=== PATIENT | female | born 1960 | race Caucasian/White ===

== ENCOUNTER → 2016-11-24 | Outpatient (CLI) | payer BC | END | disposition home or self-care (01) | LOC: LABWHC1 12:09 | PROVIDERS: ATTEND Internal Medicine | DX: I10 Essential (primary) hypertension (principal) | CPT/HCPCS: 36415; 93005 ==

== ENCOUNTER 2016-12-07 11:12 | Day surgery (SDC) | payer BC ==
[2016-12-01 15:13] VITALS: BMI 43.8
[~2016-12-07 11:12] MED LIST: ALBUTEROL NEB (CONC) 2.5 MG/0.5 ML INHALATION ONE; LACTATED RINGERS 1,000 ML IV ONE; LACTATED RINGERS 1,000 ML IV SCH; LIDOCAINE 2% (PF) 20 MG/ML 10ML INHALATION ONE
[2016-12-07 11:44] VITALS: RESP 16; TEMP 98.5
[2016-12-07] MEDS ORDERED: LIDOCAINE 1% 20 ML VIAL (10MG/ML) FOR IV START INTRADERMA ONE (12:07)
[2016-12-07] MEDS ORDERED: fentaNYL (PF) 50 MCG/ML 2 ML AMP ONE (12:45)
[2016-12-07] MEDS ORDERED: MIDAZOLAM 2 MG/2 ML VIAL ONE (12:45)
[2016-12-07] MEDS ORDERED: LIDOCAINE 1% INJ 10MG/ML (20 ML MDV) ONE (12:45)
[2016-12-07] MEDS ORDERED: PROPOFOL 10 MG/ML 20 ML VIAL IV ONE (12:45)
--- NOTE | 2016-12-07 13:08 | P.OP ---
Date of Procedure: 12/07/16 Preoperative Diagnosis: Persistent dyspnea, cough, tracheobronchitis Postoperative Diagnosis: Tracheobronchomalacia, tracheobronchitis Procedure(s) Performed: Bronchoscopy, bronchial alveolar lavage of the lingula Anesthesia: MAC Surgeon: Nadeen Feng Estimated Blood Loss (ml): 0 Pathology: other Condition: stable Disposition: same day Operative Findings: This procedure was done in the bronchoscopy suite. A timeout was obtained and a consent was signed. The procedure including the potential complications was inspected the patient at length. After achieving adequate sedation, a flexible bronchoscope was easily passed in the right nostril and was advanced into the upper airway. Examination of the posterior pharynx, larynx and epiglottis vallecula and vocal cords was done. The epiglottis was slightly swollen. There was no anatomic obstruction. Vocal cords were symmetric in the midline and there were fully functional and I did not witness any evidence of paradoxical vocal cord activity or motion. No lesions, no nodules, no other abnormalities in the upper airways. Lidocaine was applied to the vocal cords and following that the bronchoscope was last in to the upper trachea and examination of the tracheobronchial tree was done. There was evidence of dynamic obstruction secondary to tracheal bronchomalacia as the patient's membranous trachea was very mobile and causing complete occlusion of the tracheal wall with expiratory maneuvers and coughing. There was some retained secretions that were scant and nonpurulent. There is secretions were irrigated with saline and following that It was suctioning was done and the respiratory secretions were all suctioned out. Airway inspection was completed and the visualized airways into the trachea, bilateral mainstem bronchi, right upper lobe bronchus, bronchus intermedius, right middle lobe bronchus, right lower lobe bronchus, left upper lobe bronchus, left lower lobe bronchus, lungs various segments and subsegments. No tumors. No foreign bodies. There was some limited mucosal inflammatory changes involving the lingula. A bronchoalveolar lavage of the lingula with him. Total of 60 mL of fluid was infused and a total of 15-20 mL was suctioned back. No bedside complications or bleeding. The procedure was done without any complications.
[2016-12-07 13:28] VITALS: BP 131/84; PULSE 86
== END 2016-12-07 14:01 | disposition home or self-care (01) ==
LOC: ORWHC2ENDO 11:12
PROVIDERS: ATTEND Internal Medicine Critical Care Medicine
DX: J40 Bronchitis, not specified as acute or chronic (principal); J45.50 Severe persistent asthma, uncomplicated; J39.8 Other specified diseases of upper respiratory tract; R49.9 Unspecified voice and resonance disorder; J44.9 Chronic obstructive pulmonary disease, unspecified; Z99.89 Dependence on other enabling machines and devices; J45.909 Unspecified asthma, uncomplicated; G47.33 Obstructive sleep apnea (adult) (pediatric); E07.9 Disorder of thyroid, unspecified; K21.9 Gastro-esophageal reflux disease without esophagitis; F41.9 Anxiety disorder, unspecified; Z86.718 Personal history of other venous thrombosis and embolism; Z79.01 Long term (current) use of anticoagulants; Z79.891 Long term (current) use of opiate analgesic; Z79.51 Long term (current) use of inhaled steroids; Z79.899 Other long term (current) drug therapy; Z88.1 Allergy status to other antibiotic agents; Z88.2 Allergy status to sulfonamides; Z88.8 Allergy status to other drugs, medicaments and biological substances
CPT/HCPCS: 94640; 87798 ×4; 87496; 87498; 87529 ×2; 88108; 88305; 87252; 87502 ×2; 87070; 87205; 31624; J2250; J2001 ×2; J3010; J2704; 99153

== ENCOUNTER 2017-01-09 11:41 | Inpatient (IN) | payer BC, OTHER ==
[2017-01-09] MEDS ORDERED: methylPREDNISolone SOD SUCCI 125 MG/2 ML VIAL IV STA (12:12)
[2017-01-09] MEDS ORDERED: RACEPINEPHRINE 2.25% NEB 0.5 ML NEBU INHALATION STA (12:13)
[2017-01-09 12:54] LABS: ALT 41 U/L (9-52); AST 36 U/L (14-36); Alkaline Phosphatase 116 U/L (38-126); Anion Gap 9 mmol/L; Blood Urea Nitrogen 24 mg/dL (7-17); Calcium 8.7 mg/dL (8.4-10.2); Carbon Dioxide 27 mmol/L (22-30); Chloride 103 mmol/L (98-107); Glucose 105 mg/dL (74-99); Non-African American GFR(MDRD) >60 (>60 ml/min/1.73 sqM); Potassium 3.9 mmol/L (3.5-5.1); Sodium 139 mmol/L (137-145); Total Bilirubin 0.8 mg/dL (0.2-1.3); Total Protein 6.7 g/dL (6.3-8.2)
[2017-01-09] MEDS ORDERED: LORazepam 2 MG/ML SYRINGE IV STA (12:56)
[2017-01-09] MEDS ORDERED: IPRATROPIUM-ALBUTEROL 3 ML NEB INHALATION STA ×2 (12:56→14:53)
[2017-01-09 13:02] LABS: Creatine Kinase 33 U/L (30-135)
[2017-01-09 13:10] LABS: INR 3.4 (<1.1); Partial Thromboplastin Time 36.9 sec (22.0-30.0); Prothrombin Time 33.2 sec (9.0-12.0)
[2017-01-09 13:15] LABS: Creatine Kinase MB 0.3 ng/mL (0.0-2.4); Troponin I <0.012 ng/mL (0.000-0.034)
--- NOTE | 2017-01-09 13:40 | XR ---
EXAMINATION TYPE: XR soft tissue neck DATE OF EXAM: 01/09/2017 1:33 PM COMPARISON: 09/12/2015 HISTORY: Difficulty in speaking TECHNIQUE: 2 views of the soft tissues of the neck are submitted. FINDINGS: The airway is patent. Normal appearing epiglottis. Retropharyngeal soft tissues are withi n normal limits. No evidence for radiopaque foreign body. IMPRESSION: Negative study
[2017-01-09 13:50] LABS: Basophils # (A) 0.1 k/uL (0-0.2); Basophils % (A) 1 %; CH 29.5; CHCM 33.1; Eosinophils # (A) 0.2 k/uL (0-0.7); Eosinophils % (A) 2 %; HCT 40.2 % (34.0-46.0); HDW 2.55; HGB 13.2 gm/dL (11.4-16.0); Luc # (Auto) 0.17; Luc % (Auto) 1; Lymphocytes # (A) 5.1 k/uL (1.0-4.8); Lymphocytes % (A) 41 %; MCH 29.2 pg (25.0-35.0); MCHC 32.7 g/dL (31.0-37.0); MCV 89.4 fL (80.0-100.0); Mean Platelet Volume 7.4; Monocytes # (A) 0.6 k/uL (0-1.0); Monocytes % (A) 5 %; Neutrophils # (A) 6.2 k/uL (1.3-7.7); Neutrophils % (A) 50 %; RDW 13.8 % (11.5-15.5); WBC 12.4 k/uL (3.8-10.6)
[2017-01-09 14:19] LABS: Manual Review Performed
--- NOTE | 2017-01-09 14:40 | ED ---
SOB HPI - General Chief Complaint: Shortness of Breath Stated Complaint: mitzi, coughing Time Seen by Provider: 01/09/17 12:07 Source: patient Mode of arrival: wheelchair Limitations: no limitations, physical limitation - History of Present Illness Initial Comments: This 56-year-old white female presents with a complaint of difficulty in breathing. The onset occurred this morning. She's had a significant cough with green production. She does have a significant pulmonary history with a history of tracheomalacia and is presenting stridorous upon arrival. She also has a history of asthma and states that it feels like her asthma is flared. It has been progressively worsening since this morning. She feels very hot but has not had any measured temperature. She also has a history of COPD and congestive heart failure. No current chest pain. She did try her home nebulized treatments this morning without relief. She does relate that Vaponefrin will oftentimes help her symptoms. She denies any other complaints or modifying factors. - Related Data Home Medications Medication Instructions Recorded Confirmed Albuterol Sulfate [Proair Hfa] 2 puff INHALATION RT-Q4H PRN 04/11/14 01/09/17 Ascorbic Acid [Vitamin C] 500 mg PO AC-SUPPER 04/11/14 01/09/17 EPINEPHrine (Auto Inject) [Epipen] 0.3 mg IM ONCE PRN 04/11/14 01/09/17 Famotidine [Pepcid] 20 mg PO BID 04/11/14 01/09/17 Zinc 50 mg PO AC-SUPPER 04/11/14 01/09/17 Losartan Potassium [Cozaar] 50 mg PO QAM 10/09/14 01/09/17 Calcium Carbonate/Vitamin D3 1 tab PO AC-SUPPER 12/08/14 01/09/17 [Calcium 600-Vit D3 400 Tablet] Nystatin [Nystop] 1 applic TOPICAL BID PRN 12/08/14 01/09/17 Magnesium Oxide [Mag-Ox] 250 mg PO DAILY 12/18/14 01/09/17 Cholecalciferol [Vitamin D3] 5,000 unit PO AC-SUPPER 02/06/15 01/09/17 Furosemide [Lasix] 40 mg PO BID@0700,1500 04/22/15 01/09/17 Potassium Chloride [Klor-Con 20] 20 meq PO AC-SUPPER 04/22/15 01/09/17 Mometasone/Formoterol [Dulera 200 2 puff INHALATION RT-BID 09/12/15 01/09/17 Mcg/5 Mcg Inhaler] Warfarin [Coumadin] 5 mg PO HS 09/12/15 01/09/17 Cetirizine HCl [Zyrtec] 10 mg PO HS 12/21/15 01/09/17 Montelukast [Singulair] 10 mg PO HS 12/21/15 01/09/17 CHLORPHEN-HYDROcod 8-10mg/5ml 5 ml PO Q12H 12/22/15 01/09/17 [Tussionex] L.acidoph,Paracasei, B.lactis 1 cap PO DAILY 03/03/16 01/09/17 [Probiotic] Levothyroxine Sodium [Synthroid] 50 mcg PO QAM 03/03/16 01/09/17 hydrOXYzine HCL [Atarax] 50 mg PO DAILY PRN 03/03/16 01/09/17 traMADol HCl [Ultram] 50 mg PO TID PRN 03/03/16 01/09/17 Florastor 1 cap PO BID 01/09/17 01/09/17 Hydrocodone/Acetaminophen [Otis 1 tab PO Q6HR PRN 01/09/17 01/09/17 5-325] L. Rhamnosus GG/Inulin [Culturelle 1 tab PO W/LUNCH 01/09/17 01/09/17 Chewable Tablet] Metoprolol Tartrate [Lopressor] 50 mg PO DAILY 01/09/17 01/09/17 Nystatin 100,000 Unit/ml Susp 5 ml PO QID PRN 01/09/17 01/09/17 [Mycostatin Oral Susp] Orphenadrine Citrate 100 mg PO BID PRN 01/09/17 01/09/17 Previous Rx's Medication Instructions Recorded Ipratropium-Albuterol Nebulize 3 ml INHALATION RT-QID ampul.neb 12/15/14 [Duoneb 0.5 mg-3 mg/3 ml Soln] ALPRAZolam [Xanax] 0.5 mg PO Q8H #90 tablet 05/11/15 Allergies Allergy/AdvReac Type Severity Reaction Status Date / Time Aminoglycosides Allergy Unknown Verified 01/09/17 12:03 clindamycin Allergy Dyspnea Verified 01/09/17 12:03 corn syrup Allergy Nausea Verified 01/09/17 12:03 honey Allergy Anaphylaxis Verified 01/09/17 12:03 lactose Allergy Nausea Verified 01/09/17 12:03 levofloxacin [From Levaquin] Allergy Dyspnea Verified 01/09/17 12:03 moxifloxacin HCl Allergy Unknown Verified 01/09/17 12:03 [From Avelox] neomycin [Neomycin] Allergy Dyspnea Verified 01/09/17 12:03 omalizumab [From Xolair] Allergy Dyspnea Verified 01/09/17 12:03 peanut Allergy Unknown Verified 01/09/17 12:03 sulfamethoxazole Allergy Diarrhea/co Verified 01/09/17 12:03 [From Bactrim] litis trimethoprim [From Bactrim] Allergy Diarrhea/co Verified 01/09/17 12:03 litis azithromycin [From Zithromax] AdvReac Nausea & Verified 01/09/17 12:03 Vomiting & Diarrhea gluten AdvReac Nausea Verified 01/09/17 12:03 Review of Systems ROS Statement: Those systems with pertinent positive or pertinent negative responses have been documented in the HPI. ROS Other: All systems not noted in ROS Statement are negative. Past Medical History Past Medical History: Asthma, Heart Failure, COPD, CVA/TIA, GERD/Reflux, Hypertension, Sleep Apnea/CPAP/BIPAP, Thyroid Disorder Additional Past Medical History / Comment(s): Uses CPAP. Recurrent bronchitis. Chronic TRACHEOBRONCHOMALCIA. CHF with systolic dysfunction and EF of 40-45%. TACHYCARDIA. SCOLIOSIS. vocal cord dysfunction. Syncopy with TIA. History of Any Multi-Drug Resistant Organisms: C-DIFF Date of last positivie culture/infection: 04/22/15 MDRO Source:: stool Past Surgical History: Cholecystectomy, Heart Catheterization, Orthopedic Surgery, Tubal Ligation, Uterine Ablation Additional Past Surgical History / Comment(s): HEART CATH. BREAST BIOPSY-NEG. COLON POLYP - NEG. D&C. BILATERAL KNEE. NECK CYST. BOWEL RESECTION. VOCAL CORD. BRONCHOSCOPY 3-6-15 PER PT FOUND HERPES SIMPLES BLISTERS IN LUNGS. HAS HAD 14 BRONCHS. Past Anesthesia/Blood Transfusion Reactions: Postoperative Nausea & Vomiting ( PONV) Additional Past Anesthesia/Blood Transfusion Reaction / Comment(s): Pt has never recieved blood. Past Psychological History: Anxiety Additional Psychological History / Comment(s): USES WALKER, CANE NEEDED. Smoking Status: Never smoker Past Alcohol Use History: None Reported Past Drug Use History: None Reported - Past Family History Father Family Medical History: Cancer, Congestive Heart Failure (CHF), CVA/TIA, Myocardial Infarction ([place]), Prostate Disorder Additional Family Medical History / Comment(s): at age 84- chocked on a hot dog Mother Family Medical History: Cancer, Osteoarthritis (OA) Additional Family Medical History / Comment(s): mom is 84 breast ca surviver. General Exam - General Exam Comments Initial Comments: GENERAL: The patient is well nourished and well hydrated. VITAL SIGNS: Heart rate, blood pressure, respiratory rate reviewed as recorded in nurse's notes. EYES: Pupils are round and reactive. Extraocular movements are intact. No conjunctival / lid redness or swelling. ENT: No external evidence of injury, swelling, or ecchymosis. Airway is patent. Throat is clear. NECK: Nontender. No swelling or evidence of injury. No subcutaneous emphysema. Trachea is midline. No thyroid mass. HEART: Regular rate and rhythm. Good peripheral pulses. LUNGS/CHEST: Wheezing is noted bilaterally. The patient is also stridorous. No ecchymosis, subcutaneous emphysema, or tenderness. ABDOMEN: Abdomen soft without tenderness. No palpable masses or organomegaly. No peritoneal signs. No abdominal wall swelling or ecchymosis. EXTREMITIES: No extremity tenderness. Normal muscle tone and function. No thoracolumbar tenderness. NEUROLOGIC: Sensation is grossly intact. Cranial nerve exam reveals face is symmetrical, tongue is midline, speech is clear. SKIN: No abrasions or ecchymosis is noted. No induration or masses noted. PSYCHIATRIC: Alert and oriented. Appropriate behavior and judgment. Limitations: no limitations, physical limitation Course Vital Signs 01/09/17 01/09/17 01/09/17 11:43 12:39 12:50 Temperature 97.8 F Pulse Rate 100 82 92 Respiratory 28 H Rate Blood Pressure 130/79 O2 Sat by Pulse 97 Oximetry 01/09/17 01/09/17 01/09/17 12:51 13:00 13:02 Temperature 98.4 F Pulse Rate 92 84 99 Respiratory 20 Rate Blood Pressure 111/64 O2 Sat by Pulse 95 Oximetry Medical Decision Making - Medical Decision Making The patient was seen and examined. All diagnostics were reviewed. The EKG shows a normal sinus rhythm at a rate of 86. There is some flattened T waves in the lateral and inferior leads. No ST elevation noted. The IA interval is 146, QRS duration is 98, and the QTc interval is 418. The patient received a Vaponefrin breathing treatment. She still had some underlying wheezing and was given a DuoNeb breathing treatment. She later received a milligram of Ativan. Her stridor eventually did resolve. Her wheezing does continue his improved. She receives oxygen is watched on the insurance specialist. She receives Solu- Medrol 125 modems IV. She also had laboratory analysis done which shows an INR elevated at 3.4 and the white blood cell count is elevated at 12.4. The patient had a soft tissue neck x-ray which does not show any acute abnormalities. The chest x-ray does not show any acute abnormalities upon my review with final radiologic review pending. It is felt as though she might have a bronchitis. She does have some stridor which she apparently normally gets with her history of tracheomalacia. It is felt associated require admission to the hospital for further treatment. She certainly may have an exacerbation of her COPD as well. Case will be discussed with internal medicine in the near future. - Lab Data Result diagrams: 01/09/17 13:15 01/09/17 12:25 Lab Results 01/09/17 01/09/17 01/09/17 Range/Units 12:25 12:25 12:25 WBC (3.8-10.6) k/uL RBC (3.80-5.40) m/uL Hgb (11.4-16.0) gm/dL Hct (34.0-46.0) % MCV (80.0-100.0) fL MCH (25.0-35.0) pg MCHC (31.0-37.0) g/dL RDW (11.5-15.5) % Plt Count (150-450) k/uL Neutrophils % % Lymphocytes % % Monocytes % % Eosinophils % % Basophils % % Neutrophils # (1.3-7.7) k/uL Lymphocytes # (1.0-4.8) k/uL Monocytes # (0-1.0) k/uL Eosinophils # (0-0.7) k/uL Basophils # (0-0.2) k/uL Manual Slide Review PT 33.2 H (9.0-12.0) sec INR 3.4 (<1.1) APTT 36.9 H (22.0-30.0) sec Sodium 139 (137-145) mmol/L Potassium 3.9 (3.5-5.1) mmol/L Chloride 103 (98-107) mmol/L Carbon Dioxide 27 (22-30) mmol/L Anion Gap 9 mmol/L BUN 24 H (7-17) mg/dL Creatinine 0.90 (0.52-1.04) mg/dL Est GFR (MDRD) Af Amer >60 (>60 ml/min/1.73 sqM) Est GFR (MDRD) Non-Af >60 (>60 ml/min/1.73 sqM) Glucose 105 H (74-99) mg/dL Calcium 8.7 (8.4-10.2) mg/dL Magnesium 2.0 (1.6-2.3) mg/dL Total Bilirubin 0.8 (0.2-1.3) mg/dL AST 36 (14-36) U/L ALT 41 (9-52) U/L Alkaline Phosphatase 116 (38-126) U/L Total Creatine Kinase 33 (30-135) U/L CK-MB (CK-2) 0.3 (0.0-2.4) ng/mL CK-MB (CK-2) Rel Index 0.9 Troponin I <0.012 (0.000-0.034) ng/mL NT-Pro-B Natriuret Pep pg/mL Total Protein 6.7 (6.3-8.2) g/dL Albumin 3.7 (3.5-5.0) g/dL Influenza Type A RNA (Not Detectd) Influenza Type B (PCR) (Not Detectd) 01/09/17 01/09/17 01/09/17 Range/Units 12:25 13:15 13:15 WBC 12.4 H (3.8-10.6) k/uL RBC 4.50 (3.80-5.40) m/uL Hgb 13.2 (11.4-16.0) gm/dL Hct 40.2 (34.0-46.0) % MCV 89.4 (80.0-100.0) fL MCH 29.2 (25.0-35.0) pg MCHC 32.7 (31.0-37.0) g/dL RDW 13.8 (11.5-15.5) % Plt Count 249 (150-450) k/uL Neutrophils % 50 % Lymphocytes % 41 % Monocytes % 5 % Eosinophils % 2 % Basophils % 1 % Neutrophils # 6.2 (1.3-7.7) k/uL Lymphocytes # 5.1 H (1.0-4.8) k/uL Monocytes # 0.6 (0-1.0) k/uL Eosinophils # 0.2 (0-0.7) k/uL Basophils # 0.1 (0-0.2) k/uL Manual Slide Review Performed PT (9.0-12.0) sec INR (<1.1) APTT (22.0-30.0) sec Sodium (137-145) mmol/L Potassium (3.5-5.1) mmol/L Chloride (98-107) mmol/L Carbon Dioxide (22-30) mmol/L Anion Gap mmol/L BUN (7-17) mg/dL Creatinine (0.52-1.04) mg/dL Est GFR (MDRD) Af Amer (>60 ml/min/1.73 sqM) Est GFR (MDRD) Non-Af (>60 ml/min/1.73 sqM) Glucose (74-99) mg/dL Calcium (8.4-10.2) mg/dL Magnesium (1.6-2.3) mg/dL Total Bilirubin (0.2-1.3) mg/dL AST (14-36) U/L ALT (9-52) U/L Alkaline Phosphatase (38-126) U/L Total Creatine Kinase (30-135) U/L CK-MB (CK-2) (0.0-2.4) ng/mL CK-MB (CK-2) Rel Index Troponin I (0.000-0.034) ng/mL NT-Pro-B Natriuret Pep 65 pg/mL Total Protein (6.3-8.2) g/dL Albumin (3.5-5.0) g/dL Influenza Type A RNA Not Detected (Not Detectd) Influenza Type B (PCR) Not Detected (Not Detectd) Disposition Clinical Impression: Bronchitis, Dyspnea, Bronchospasm, Tracheomalacia, Stridor, Acute exacerbation of chronic obstructive pulmonary disease (COPD), Asthma, Coagulopathy, Leukocytosis Disposition: ADMITTED IP TO THIS HOSP Condition: Fair Referrals: Russell Hinson MD [Primary Care Provider] - 1-2 days Time of Disposition: 14:40 Decision Date: 01/09/17 Decision Time: 14:40
[2017-01-09] MEDS ORDERED: DOXYCYCLINE 50 MG CAP PO STA (14:53)
[2017-01-09] MEDS ORDERED: traMADol 50 MG TAB PO PRN (14:59)
[2017-01-09] MEDS ORDERED: NYSTATIN 100,000 UNIT/GM POWD 15 GM TOPICAL PRN (14:59)
[2017-01-09] MEDS ORDERED: hydrOXYzine HCL 25 MG TAB PO PRN (14:59)
[2017-01-09] MEDS ORDERED: CYCLOBENZAPRINE 10 MG TAB PO PRN (14:59)
[2017-01-09] MEDS ORDERED: NYSTATIN 100,000 UNIT/ML SUSP 500,000 UNIT/5 ML CUP PO PRN (14:59)
[2017-01-09] MEDS ORDERED: EPINEPHrine (Auto Inject) 0.3 MG/0.3 ML SYRINGE IM PRN (14:59)
[2017-01-09] MEDS: ALPRAZolam 0.5 MG TAB PO SCH ×2 (15:26→23:17)
--- NOTE | 2017-01-09 15:46 | XR ---
EXAMINATION TYPE: XR chest 2V DATE OF EXAM: 01/09/2017 1:33 PM COMPARISON: NONE HISTORY: Chest pain TECHNIQUE: Frontal and lateral views of the chest are obtained. FINDINGS: There is no focal air space opacity. No evidence for pnuemothorax.No pleural effusion. The cardiac silhouette size is within normal limits. The osseous structures are grossly intact. IMPRESSION: 1. No acute cardiopulmonary process.
[2017-01-09 17:27] LABS: Glucose,Whole Blood 163 mg/dL (75-99)
[2017-01-09] MEDS: FUROSEMIDE 40 MG TAB PO SCH (17:38)
[2017-01-09] MEDS: ASCORBIC ACID 500 MG TAB PO SCH (17:38)
[2017-01-09] MEDS: CALCIUM CARB-VIT D 500MG-200UN 1 EACH TAB PO SCH (17:38)
[2017-01-09] MEDS: ZINC SULFATE 220 MG CAP PO SCH (17:38)
[2017-01-09] MEDS: CHOLECALCIFEROL 1,000 UNIT TAB PO SCH (17:38)
[2017-01-09] MEDS: POTASSIUM CHLORIDE ER 20 MEQ TAB.ER PO SCH (17:38)
[2017-01-09] MEDS: methylPREDNISolone SOD SUCCI 125 MG/2 ML VIAL IV SCH ×2 (17:39→23:18)
[2017-01-09] MEDS: WARFARIN 5 MG TAB PO SCH (17:41)
[2017-01-09] MEDS: INSULIN LISPRO (humaLOG) 300 UNIT/3 ML VIAL SQ SCH ×2 (17:42→21:07)
[2017-01-09] MEDS: IPRATROPIUM-ALBUTEROL 3 ML NEB INHALATION PRN (20:10)
[2017-01-09] MEDS: SYMBICORT 160-4.5 MCG INHALER INHALATION SCH (20:10)
[2017-01-09] MEDS: LORATADINE 10 MG TAB PO SCH (20:53)
[2017-01-09] MEDS: LACTOBACILLUS ACIDOPH & BULGAR 1 EACH PACKET PO SCH (20:53)
[2017-01-09] MEDS: MONTELUKAST 10 MG TAB PO SCH (20:54)
[2017-01-09] MEDS: FAMOTIDINE 20 MG TAB PO SCH (20:54)
[2017-01-09] MEDS: CHLORPHEN-HYDROcod 8-10mg/5ml 5 ML ORAL.SYRG PO SCH (21:04)
[2017-01-09 21:12] LABS: Glucose,Whole Blood 169 mg/dL (75-99)
[2017-01-09] MEDS: DOXYCYCLINE 50 MG CAP PO SCH (23:18)
[2017-01-10] MEDS ORDERED: SODIUM CHLORIDE 0.9% 1,000 ML IV SCH (04:15)
[2017-01-10] MEDS: methylPREDNISolone SOD SUCCI 125 MG/2 ML VIAL IV SCH ×4 (05:27→23:29)
[2017-01-10] MEDS: LEVOTHYROXINE 50 MCG TAB PO SCH (05:32)
[2017-01-10 07:51] LABS: Glucose,Whole Blood 147 mg/dL (75-99)
[2017-01-10] MEDS: IPRATROPIUM-ALBUTEROL 3 ML NEB INHALATION PRN ×4 (08:29→19:38)
[2017-01-10] MEDS: SYMBICORT 160-4.5 MCG INHALER INHALATION SCH ×2 (08:29→19:38)
[2017-01-10] MEDS: FAMOTIDINE 20 MG TAB PO SCH (08:34)
[2017-01-10] MEDS: LACTOBACILLUS ACIDOPH & BULGAR 1 EACH PACKET PO SCH ×2 (08:34→20:19)
[2017-01-10] MEDS: METOPROLOL TARTRATE 50 MG TAB PO SCH (08:34)
[2017-01-10] MEDS: LOSARTAN 50 MG TAB PO SCH (08:34)
[2017-01-10] MEDS: FUROSEMIDE 40 MG TAB PO SCH (08:34)
[2017-01-10] MEDS: CHLORPHEN-HYDROcod 8-10mg/5ml 5 ML ORAL.SYRG PO SCH ×2 (08:35→20:28)
[2017-01-10] MEDS: ALPRAZolam 0.5 MG TAB PO SCH ×3 (08:35→22:14)
[2017-01-10] MEDS: INSULIN LISPRO (humaLOG) 300 UNIT/3 ML VIAL SQ SCH ×4 (08:38→21:19)
[2017-01-10] MEDS: DOXYCYCLINE 50 MG CAP PO SCH ×2 (08:38→21:19)
[2017-01-10] MEDS: HYDROcodone/APAP 5-325MG 1 EACH TAB PO PRN (08:45)
[2017-01-10] MEDS ORDERED: NON-FORMULARY DRUG (L.Acidoph,Paracasei, B.Lactis [Probiotic] 1 CAP) PO SCH (09:00)
[2017-01-10 09:41] LABS: Basophils # (A) 0.2 k/uL (0-0.2); Basophils % (A) 1 %; CH 29.9; CHCM 33.6; Eosinophils % (A) 0 %; HCT 40.9 % (34.0-46.0); HDW 2.55; HGB 13.3 gm/dL (11.4-16.0); Luc # (Auto) 0.04; Luc % (Auto) 0; Lymphocytes # (A) 2.5 k/uL (1.0-4.8); Lymphocytes % (A) 14 %; MCH 29.2 pg (25.0-35.0); MCHC 32.6 g/dL (31.0-37.0); MCV 89.5 fL (80.0-100.0); Monocytes # (A) 0.2 k/uL (0-1.0); Monocytes % (A) 1 %; Neutrophils # (A) 15.7 k/uL (1.3-7.7); Neutrophils % (A) 84 %; RBC 4.57 m/uL (3.80-5.40); RDW 13.7 % (11.5-15.5); WBC 18.6 k/uL (3.8-10.6); WBC (Perox) 19.57
--- NOTE | 2017-01-10 09:41 | HP ---
DATE OF ADMISSION: Chief complaint is difficulty breathing and cough. HISTORY OF PRESENT ILLNESS: Ms. Mcwilliams is a 56-year-old female with a known history of morbid obesity, COPD on home oxygen, obstructive sleep apnea on CPAP at home, and tracheomalacia with multiple admissions for COPD exacerbation, came to the hospital with complaints of difficulty breathing and cough with green sputum production, worsening for the past 1 to 2 days. Apparently, patient has not been feeling well and has been short of breath for the past one month. Patient initially was seen at [facility] and was placed on Medrol Dosepak and later patient was placed also on ( ). Patient did complete her medications but symptoms are still persistent which made her to come to the hospital. Patient does have a history of tracheomalacia. Patient also complains of change in voice. Patient does have underlying hoarseness at baseline. Patient tried nebulizations and treatment at home which did not improve her symptoms today, which made her come to the hospital. Currently, patient denied any complaints of fever or chills No nausea, vomiting, or abdominal pain. No chest pain. REVIEW OF SYSTEMS: CONSTITUTIONAL: No fever. No chills. No weakness. RESPIRATORY: Patient does have a cough or sputum production and short of breath. CARDIOVASCULAR: No chest pain. Patient does have short of breath. No leg swelling. ABDOMEN: No nausea or vomiting or abdominal pain. GENITOURINARY: Negative. ENDOCRINE: Negative. PSYCHIATRIC: Negative. SKIN: Negative. MUSCULOSKELETAL: Negative. All other 14-point review of systems negative except as above. PAST MEDICAL HISTORY: COPD on home oxygen, obstructive sleep apnea on CPAP at home, history of CHF, ejection fraction 40% to 45%, tracheobronchomalacia, GERD, patient has history of CVA/TIA, asthma, hypertension, hypothyroidism, focal cardiac dysfunction, syncope, history of C. diff infection. PAST SURGICAL HISTORY: Cholecystectomy, cardiac catheterization, breast biopsy negative, tubal ligation, uterine ablation, colon polyp negative, bowel resection, herpes simplex blisters in lung and bronchoscopy x14. PSYCHOSOCIAL HISTORY: Anxiety. Patient uses a walker. Patient never a smoker. Denied any alcohol use, drugs or IVDU. FAMILY HISTORY: Father has cancer, congestive heart failure, CVA/TIA, [place], and prostate disorder. at age 84, choked on a hotdog. Mother had breast cancer and a survivor and osteoarthritis. Home medications include: 1. Vitamin D3. 2. ProAir. 3. Ascorbic acid. 4. EpiPen. 5. Pepcid. 6. Zinc. 7. Losartan. 8. Nystatin. 9. Magnesium oxide. 10. Furosemide. 11. Potassium chloride. 12. Dulera. 13. Warfarin. 14. Cetirizine. 15. Singulair. 16. Tussionex. 17. Probiotic. 18. Synthroid. 19. Hydroxyzine. 20. Ultram. 21. Florastor. 22. [place] 5/325. 23. Metoprolol. 24. Nystatin. 25. Orphenadrine Citrate. 26. DuoNeb. 27. Xanax. Allergies include AMINOGLYCOSIDES, CLINDAMYCIN, CORN SYRUP, HONEY, LACTOSE, LEVOFLOXACIN, MOXIFLOXACIN, NEOMYCIN, XOLAIR, PEANUT, BACTRIM, AZITHROMYCIN, GLUTEN. PHYSICAL EXAMINATION: A 56-year-old male, morbidly obese, lying in bed comfortably. Awake, alert, oriented x3. Appears to be in no apparent distress. VITALS: Blood pressure is 111/64, pulse is 84, respiration 20, temperature afebrile, pulse ox 97% on 2 L nasal cannula. HEENT: Atraumatic, normocephalic. Neck is full, no JVD. CVS: S1, S2 heard. No murmurs, no gallop. LUNGS: Bilateral decreased air entry. Expiratory wheezing and rhonchi positive. Nonlabored breathing. Abdomen is soft, nontender. Bowel sounds are present. [employer]: Awake, alert, oriented x3. No focal deficit. Cranial nerves are grossly intact. EXTREMITIES: No edema. Pulses palpable bilaterally, no clubbing or cyanosis. PSYCHIATRIC: Cooperative. SKIN: No rash or lesions. LABORATORY DATA: WBC 12.4, hemoglobin 13.2, platelets 249, INR 3.4. Sodium 139, potassium 3.9, chloride 103, bicarb 27. BUN 24, creatinine 0.9, HBA1c is 6.0, calcium 8.7. Liver enzyme is not elevated, NT-proBNP 65, albumin 3.7. Chest x-ray, no acute cardiopulmonary process. Soft tissue of the neck x-ray negative study. EKG, normal sinus rhythm. IMPRESSION: 1. Acute chronic obstructive pulmonary disease exacerbation secondary to tracheobronchitis. No pneumonia on chest x-ray. 2. Acute tracheobronchitis, failed outpatient therapy. 3. Broncho tracheomalacia and stridor. 4. History of asthma. 5. Coagulopathy, elevated INR level. 6. History of blood clots. 7. Morbid obesity with a body mass index of 43.9. 8. Obstructive sleep apnea on CPAP at home. 9. History of cerebrovascular accident/transient ischemic attack. No residual weakness. 10. History of congestive heart failure with systolic dysfunction, ejection fraction 40% to 45%, chronic, not in exacerbation. 11. Multiple admissions with chronic obstructive pulmonary disease exacerbation and history of multiple bronchoscopies. 12. Hypothyroidism. 13. Gastroesophageal reflux disease. 14. History of syncope. 15. Scoliosis. 16. Degenerative joint disease. 17. Multiple allergies to medications and antibiotics. DISCUSSION AND PLAN: Patient will be continued on ( ) breathing treatments and IV steroids and continue with the antibiotics in the form of ceftriaxone and doxycycline. Continue with the Coumadin monitoring. Continue with the oxygen therapy and Pulmonary has been consulted for further evaluation. Prognosis is guarded. Further recommendations based on the clinical course. Patient does have multiple medical problems and comorbid conditions.
[2017-01-10 09:58] LABS: INR 2.9 (<1.1); Prothrombin Time 28.5 sec (9.0-12.0)
[2017-01-10 10:16] LABS: Anion Gap 13 mmol/L; Blood Urea Nitrogen 26 mg/dL (7-17); Calcium 9.4 mg/dL (8.4-10.2); Carbon Dioxide 26 mmol/L (22-30); Chloride 102 mmol/L (98-107); Glucose 148 mg/dL (74-99); Non-African American GFR(MDRD) 58 (>60 ml/min/1.73 sqM); Potassium 3.9 mmol/L (3.5-5.1); Sodium 141 mmol/L (137-145)
--- NOTE | 2017-01-10 10:47 | P.CNPUL ---
History of Present Illness Consult date: 01/10/17 Reason for consult: asthma Chief complaint: Shortness of breath History of present illness: 56-year-old female well-known to our practice. Sees Dr. Feng for her lung issues. Has a history of chronic bronchial asthma and chronic upper airway dysfunction with significant stridor. 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 Anyway the patient presents with a couple day history of shortness of breath difficulty breathing coughing. Wheezing. Not bringing up much phlegm. She also has tracheal bronchomalacia. Was seen in the emergency room yesterday and admitted to the hospital. Quite honestly, the patient looks as good as I have ever seen her. Not bad. No respiratory distress. No audible wheezing. I don't hear any stridor. Not really having much in the way of complaints. States she is feeling better than she did yesterday though. I've not seen her for many months or years myself. She stasis/ARDS been good for her and she hasn't been in the hospital off for about a year. Review of Systems A 12 point review of system is positive for shortness of breath or wheezing stridor and coughing. Not producing much phlegm. No fever no chills. Past Medical History Past Medical History: Asthma, Heart Failure, COPD, CVA/TIA, GERD/Reflux, Hypertension, Sleep Apnea/CPAP/BIPAP, Thyroid Disorder Additional Past Medical History / Comment(s): Uses CPAP. Recurrent bronchitis. Chronic TRACHEOBRONCHOMALCIA. CHF with systolic dysfunction and EF of 40-45%. TACHYCARDIA. SCOLIOSIS. vocal cord dysfunction. Syncopy with TIA.c-diff 04-22-15 colitis, difficulty swallowing large pills and needs meat chopped up History of Any Multi-Drug Resistant Organisms: None Reported Date of last positivie culture/infection: 04/22/15 MDRO Source:: stool Past Surgical History: Cholecystectomy, Heart Catheterization, Orthopedic Surgery, Tubal Ligation, Uterine Ablation Additional Past Surgical History / Comment(s): HEART CATH. BREAST BIOPSY-NEG. COLON POLYP - NEG. D&C. BILATERAL KNEE. NECK CYST. BOWEL RESECTION. VOCAL CORD. BRONCHOSCOPY 3-6-15 PER PT FOUND HERPES SIMPLES BLISTERS IN LUNGS. HAS HAD 15 BRONCHS.rt arm tendon sx Past Anesthesia/Blood Transfusion Reactions: Postoperative Nausea & Vomiting ( PONV) Additional Past Anesthesia/Blood Transfusion Reaction / Comment(s): Pt has never recieved blood. Past Psychological History: Anxiety Additional Psychological History / Comment(s): USES WALKER, CANE NEEDED. Smoking Status: Never smoker Past Alcohol Use History: None Reported Past Drug Use History: None Reported - Past Family History Father Family Medical History: Cancer, Congestive Heart Failure (CHF), CVA/TIA, Myocardial Infarction ([place]), Prostate Disorder Additional Family Medical History / Comment(s): at age 84- chocked on a hot dog Mother Family Medical History: Cancer, Osteoarthritis (OA) Additional Family Medical History / Comment(s): mom is 84 breast ca surviver. Medications and Allergies Home Medications Medication Instructions Recorded Confirmed Type Albuterol Sulfate [Proair Hfa] 2 puff INHALATION RT-Q4H PRN 04/11/14 01/09/17 History Ascorbic Acid [Vitamin C] 500 mg PO AC-SUPPER 04/11/14 01/09/17 History EPINEPHrine (Auto Inject) [Epipen] 0.3 mg IM ONCE PRN 04/11/14 01/09/17 History Famotidine [Pepcid] 20 mg PO BID 04/11/14 01/09/17 History Zinc 50 mg PO AC-SUPPER 04/11/14 01/09/17 History Losartan Potassium [Cozaar] 50 mg PO QAM 10/09/14 01/09/17 History Calcium Carbonate/Vitamin D3 1 tab PO AC-SUPPER 12/08/14 01/09/17 History [Calcium 600-Vit D3 400 Tablet] Nystatin [Nystop] 1 applic TOPICAL BID PRN 12/08/14 01/09/17 History Magnesium Oxide [Mag-Ox] 250 mg PO DAILY 12/18/14 01/09/17 History Cholecalciferol [Vitamin D3] 5,000 unit PO AC-SUPPER 02/06/15 01/09/17 History Furosemide [Lasix] 40 mg PO BID@0700,1500 04/22/15 01/09/17 History Potassium Chloride [Klor-Con 20] 20 meq PO AC-SUPPER 04/22/15 01/09/17 History Mometasone/Formoterol [Dulera 200 2 puff INHALATION RT-BID 09/12/15 01/09/17 History Mcg/5 Mcg Inhaler] Warfarin [Coumadin] 5 mg PO HS 09/12/15 01/09/17 History Cetirizine HCl [Zyrtec] 10 mg PO HS 12/21/15 01/09/17 History Montelukast [Singulair] 10 mg PO HS 12/21/15 01/09/17 History CHLORPHEN-HYDROcod 8-10mg/5ml 5 ml PO Q12H 12/22/15 01/09/17 History [Tussionex] L.acidoph,Paracasei, B.lactis 1 cap PO DAILY 03/03/16 01/09/17 History [Probiotic] Levothyroxine Sodium [Synthroid] 50 mcg PO QAM 03/03/16 01/09/17 History hydrOXYzine HCL [Atarax] 50 mg PO DAILY PRN 03/03/16 01/09/17 History traMADol HCl [Ultram] 50 mg PO TID PRN 03/03/16 01/09/17 History Florastor 1 cap PO BID 01/09/17 01/09/17 History Hydrocodone/Acetaminophen [Nice 1 tab PO Q6HR PRN 01/09/17 01/09/17 History 5-325] L. Rhamnosus GG/Inulin [Culturelle 1 tab PO W/LUNCH 01/09/17 01/09/17 History Chewable Tablet] Metoprolol Tartrate [Lopressor] 50 mg PO DAILY 01/09/17 01/09/17 History Nystatin 100,000 Unit/ml Susp 5 ml PO QID PRN 01/09/17 01/09/17 History [Mycostatin Oral Susp] Orphenadrine Citrate 100 mg PO BID PRN 01/09/17 01/09/17 History Allergies Allergy/AdvReac Type Severity Reaction Status Date / Time Aminoglycosides Allergy Unknown Verified 01/09/17 12:03 clindamycin Allergy Dyspnea Verified 01/09/17 12:03 corn syrup Allergy Nausea Verified 01/09/17 12:03 honey Allergy Anaphylaxis Verified 01/09/17 12:03 lactose Allergy Nausea Verified 01/09/17 12:03 levofloxacin [From Levaquin] Allergy Dyspnea Verified 01/09/17 12:03 moxifloxacin HCl Allergy Unknown Verified 01/09/17 12:03 [From Avelox] neomycin [Neomycin] Allergy Dyspnea Verified 01/09/17 12:03 omalizumab [From Xolair] Allergy Dyspnea Verified 01/09/17 12:03 peanut Allergy Unknown Verified 01/09/17 12:03 sulfamethoxazole Allergy Diarrhea/co Verified 01/09/17 12:03 [From Bactrim] litis trimethoprim [From Bactrim] Allergy Diarrhea/co Verified 01/09/17 12:03 litis azithromycin [From Zithromax] AdvReac Nausea & Verified 01/09/17 12:03 Vomiting & Diarrhea gluten AdvReac Nausea Verified 01/09/17 12:03 Physical Exam Osteopathic Statement: *. No significant issues noted on an osteopathic structural exam other than those noted in the History and Physical/Consult. Vitals: Vital Signs Temp Pulse Pulse Resp BP BP Pulse Ox 01/10/17 08:43 96 01/10/17 08:30 96 98 01/10/17 07:00 97.2 F L 92 19 133/71 97 01/09/17 23:00 97.8 F 98 20 112/59 95 01/09/17 20:19 88 01/09/17 20:11 84 01/09/17 16:15 97.9 F 98 20 115/69 100 01/09/17 15:26 99 01/09/17 15:13 86 Intake and Output 01/09/17 01/10/17 01/10/17 22:59 06:59 14:59 Intake Total 300 200 Balance 300 200 Intake: Oral 300 200 Other: Voiding Method Toilet # Voids 1 Weight 129.5 kg No acute distress, oriented 3. No audible wheezing. No audible stridor. HEENT examination is grossly unremarkable. Mucous membranes are moist. No oral lesions. Neck supple. Full range of motion. No adenopathy or thyromegaly. Neck veins are flat. I auscultated the neck and no hear any stridor. Cardiovascular examination reveals regular rhythm rate. Heart rate about 100. His regular. S1-S2 normal. No S3-S4 or murmur. Lungs reveal few scattered coarse rhonchi. Some very mild high-pitched expiratory wheezes. Slight prolongation on forced maneuver. No crackles. Abdomen soft. Extremities are intact. Results - Laboratory Findings CBC and BMP: 01/10/17 09:00 01/10/17 09:00 PT/INR, D-dimer PT 28.5 sec (9.0-12.0) H 01/10/17 09:00 INR 2.9 (<1.1) 01/10/17 09:00 Abnormal lab findings: Abnormal Labs 01/09/17 01/09/17 01/10/17 17:25 21:04 02:05 WBC Neutrophils # PT BUN Glucose POC Glucose (mg/dL) 163 H 169 H Plasma Lactic Acid Seth 2.5 H* 01/10/17 01/10/17 01/10/17 07:45 09:00 09:00 WBC 18.6 H Neutrophils # 15.7 H PT 28.5 H BUN Glucose POC Glucose (mg/dL) 147 H Plasma Lactic Acid Seth 01/10/17 09:00 WBC Neutrophils # PT BUN 26 H Glucose 148 H POC Glucose (mg/dL) Plasma Lactic Acid Seth - Diagnostic Findings Chest x-ray: image reviewed (Chest x-ray labs and medications are all reviewed.) Assessment and Plan (1) Asthma Status: Acute (2) Bronchospasm Status: Acute (3) Stridor Status: Acute (4) Tracheomalacia Status: Acute (5) Acute bronchitis Status: Acute (6) Tracheobronchitis Status: Acute Plan: Plan dated 01/10/2017 The patient's medication labs and x-rays are reviewed. Additional recommendations suggestions are forthcoming. Prognosis is good. Eva does not look his better she's been in the past. It appears it was more of an upper airway issue that her asthma. We'll continue to follow. Prognosis is guarded. Time with Patient: Greater than 30
[2017-01-10] MEDS: SODIUM CHLORIDE 0.9% 1,000 ML IV SCH ×2 (12:21→22:06)
[2017-01-10] MEDS: MAGNESIUM OXIDE 400 MG TAB PO SCH (12:21)
[2017-01-10 12:23] LABS: Glucose,Whole Blood 126 mg/dL (75-99)
[2017-01-10] MEDS ORDERED: RHAMNOSUS GG PO SCH (12:30)
[2017-01-10] MEDS ORDERED: INULIN PO SCH (12:30)
--- NOTE | 2017-01-10 16:03 | P.PN ---
Subjective Date of service 12/13/2016. Progress note being dictated for Dr. Soriano. Interval history: Is a 56-year-old female admitted with acute COPD exacerbation secondary to tracheobronchitis, bronchotracheomalacia for stridor in a patient with significant history of multiple bronchoscopies ,COPD exacerbations, and multiple other medical issues. Maintained on nebulized bronchodilators, IV antibiotics, and systemic steroids with mild improvement in breathing. No stridor currently. Mildly increased Repeat lactic acid. Evaluated by pulmonary with recommendations noted. Afebrile. Denies chest pain, palpitations. Objective - Vital Signs Vital signs: Vital Signs Temp 97.2 F L 01/10/17 07:00 Pulse 92 01/10/17 12:28 Resp 18 01/10/17 11:54 BP 133/71 01/10/17 07:00 Pulse Ox 98 01/10/17 08:30 - Exam PHYSICAL EXAM: VITAL SIGNS: As above GENERAL: [Sitting up at side of bed, no acute distress] HEENT: [Pupils equal conjunctiva normal.] NECK: [Supple, no JVD] RESPIRATORY EFFORT:[Normal] LUNGS: [No stridor, scattered coarse rhonchi scattered throughout, occasional expiratory wheeze, no crackles] CARDIOVASCULAR[regular S1 and S2, no murmurs ,rubs or gallops, no edema] GI: [Abdomen soft, nontender, positive bowel sounds.] PSYCH: [Alert and oriented -3, mood and affect normal.] NEURO: No focal deficits, moves all 4 extremities, strength and sensation intact - Labs CBC & Chem 7: 01/10/17 09:00 01/10/17 09:00 Labs: Abnormal Lab Results - Last 24 Hours (Table) 01/10/17 01/10/17 Range/Units 11:45 12:20 POC Glucose (mg/dL) 126 H (75-99) mg/dL Plasma Lactic Acid Seth 3.3 H* (0.7-2.0) mmol/L Assessment and Plan Plan: 1. Acute COPD exacerbation secondary to tracheobronchitis, no pneumonia per chest x-ray. 2. Acute tracheobronchitis, failed outpatient treatment 3. Broncho tracheomalacia with stridor 4. Chronic bronchial asthma 5. Coagulopathy, elevated INR 6. History of DVTs 7. Morbid obesity, BMI 43.9 8. Obstructive sleep apnea, wears CPAP at home 9. History of CVA, TIA without residual weakness 10. Chronic congestive heart failure with systolic dysfunction, EF 40-45%, no acute exacerbation 11. Multiple admissions regarding COPD exacerbation with multiple bronchoscopies 12. Hypothyroidism 13. Gastroesophageal reflux disease 14. Scoliosis 15. Degenerative joint disease 16. Multiple ALLERGIES to medications and antibiotics Plan: Continue on current medication regime ,monitoring and symptomatic treatment. Worsening lactic acid. IV fluids increased cautiously as patient has a history of CHF and EF of 40-45%, repeat lactic acid in a.m. Follow-up chest x-ray in a.m. Follow closely with pulmonary. Prognosis guarded. Further recommendations to follow. The impression and plan of care has been dictated as directed. : I performed a H&P examination of this patient and discussed the same with the dictator. I agree with the dictator's note. Any additional findings/opinions/ etc. will be noted.
[2017-01-10 17:30] LABS: Glucose,Whole Blood 115 mg/dL (75-99)
[2017-01-10] MEDS: CALCIUM CARB-VIT D 500MG-200UN 1 EACH TAB PO SCH (18:08)
[2017-01-10] MEDS: ZINC SULFATE 220 MG CAP PO SCH (18:08)
[2017-01-10] MEDS: ASCORBIC ACID 500 MG TAB PO SCH (18:08)
[2017-01-10] MEDS: POTASSIUM CHLORIDE ER 20 MEQ TAB.ER PO SCH (18:08)
[2017-01-10] MEDS: CHOLECALCIFEROL 1,000 UNIT TAB PO SCH (18:08)
[2017-01-10] MEDS: WARFARIN 5 MG TAB PO SCH (18:08)
[2017-01-10] MEDS: LORATADINE 10 MG TAB PO SCH (20:19)
[2017-01-10] MEDS: MONTELUKAST 10 MG TAB PO SCH (20:19)
[2017-01-10 21:22] LABS: Glucose,Whole Blood 162 mg/dL (75-99)
[2017-01-11] MEDS: SODIUM CHLORIDE 0.9% 1,000 ML IV SCH ×3 (03:50→17:43)
[2017-01-11] MEDS: methylPREDNISolone SOD SUCCI 125 MG/2 ML VIAL IV SCH ×4 (05:48→23:18)
[2017-01-11] MEDS: LEVOTHYROXINE 50 MCG TAB PO SCH (05:48)
--- NOTE | 2017-01-11 07:23 | XR ---
EXAMINATION TYPE: XR chest 2V DATE OF EXAM: 01/11/2017 7:11 AM HISTORY: Shortness of breath. COMPARISON: 01/09/2017 TECHNIQUE: Single view of the chest is submitted. FINDINGS: Demonstrated are scattered senescent parenchymal change. There is no evidence for focal infiltrate. The heart is mildly enlarged. Hilar and mediastinal structures are within normal limits. Degenerative changes are seen of the dorsal spine. IMPRESSION: 1. Chronic changes without evidence for acute pulmonary disease.
[2017-01-11 07:50] LABS: Glucose,Whole Blood 137 mg/dL (75-99)
[2017-01-11] MEDS: IPRATROPIUM-ALBUTEROL 3 ML NEB INHALATION PRN ×4 (07:52→20:20)
[2017-01-11] MEDS: SYMBICORT 160-4.5 MCG INHALER INHALATION SCH ×2 (07:52→20:21)
[2017-01-11] MEDS: ALPRAZolam 0.5 MG TAB PO SCH ×3 (08:21→23:18)
[2017-01-11] MEDS: LACTOBACILLUS ACIDOPH & BULGAR 1 EACH PACKET PO SCH ×2 (08:21→20:29)
[2017-01-11] MEDS: DOXYCYCLINE 50 MG CAP PO SCH ×2 (08:21→20:30)
[2017-01-11] MEDS: METOPROLOL TARTRATE 50 MG TAB PO SCH (08:21)
[2017-01-11] MEDS: HYDROcodone/APAP 5-325MG 1 EACH TAB PO PRN (08:21)
[2017-01-11] MEDS: LOSARTAN 50 MG TAB PO SCH (08:21)
[2017-01-11] MEDS: INSULIN LISPRO (humaLOG) 300 UNIT/3 ML VIAL SQ SCH ×4 (08:22→21:18)
[2017-01-11] MEDS: CHLORPHEN-HYDROcod 8-10mg/5ml 5 ML ORAL.SYRG PO SCH ×2 (08:22→20:30)
[2017-01-11 09:00] LABS: INR 2.5 (<1.1); Prothrombin Time 24.1 sec (9.0-12.0)
[2017-01-11 09:08] LABS: Anion Gap 10 mmol/L; Blood Urea Nitrogen 31 mg/dL (7-17); Calcium 9.3 mg/dL (8.4-10.2); Carbon Dioxide 23 mmol/L (22-30); Chloride 107 mmol/L (98-107); Glucose 135 mg/dL (74-99); Magnesium 2.2 mg/dL (1.6-2.3); Non-African American GFR(MDRD) >60 (>60 ml/min/1.73 sqM); Potassium 4.6 mmol/L (3.5-5.1); Sodium 140 mmol/L (137-145)
[2017-01-11 09:10] LABS: Basophils # (A) 0.1 k/uL (0-0.2); Basophils % (A) 0 %; CH 29.6; CHCM 32.5; Eosinophils % (A) 0 %; HCT 37.7 % (34.0-46.0); HDW 2.35; HGB 12.4 gm/dL (11.4-16.0); Luc # (Auto) 0.08; Luc % (Auto) 0; Lymphocytes # (A) 2.1 k/uL (1.0-4.8); Lymphocytes % (A) 9 %; MCH 30.1 pg (25.0-35.0); MCHC 32.9 g/dL (31.0-37.0); MCV 91.4 fL (80.0-100.0); Monocytes # (A) 0.5 k/uL (0-1.0); Monocytes % (A) 2 %; Neutrophils # (A) 21.9 k/uL (1.3-7.7); Neutrophils % (A) 89 %; RBC 4.12 m/uL (3.80-5.40); RDW 14.2 % (11.5-15.5); WBC 24.6 k/uL (3.8-10.6); WBC (Perox) 25.04
--- NOTE | 2017-01-11 11:41 | P.PN ---
Subjective 56-year-old female well-known to our service. She has history of severe chronic bronchial asthma intermittently laryngeal dyskinesia upper airway obstruction with stridor and tracheal bronchomalacia. She's had multiple admissions to this hospital although the last year she's done much better. Her primary financial services counselor is Dr. Ag. Doing relatively well today. Was admitted for data half ago onto the emergency department. I did ask the respiratory therapist to try some aerosolized lidocaine on her because in the past that seems to help. In addition, we'll try a mixture of 30 % oxygen is 70% helium to see whether or not that helps to ameliorate or reduce the upper airway obstruction. A lot of it is psychogenic in that she gets very stressed out and anxious and the airway obstruction seem to get or's. She just has a very floppy upper airway my opinion. Objective - Vital Signs Vital signs: Vital Signs Temp 97.2 F L 01/11/17 07:00 Pulse 80 01/11/17 08:13 Resp 18 01/11/17 08:00 BP 127/79 01/11/17 07:00 Pulse Ox 97 01/11/17 07:00 Intake & Output 01/10/17 01/11/17 01/11/17 18:59 06:59 18:59 Intake Total 240 360 Balance 240 360 Weight 133 kg Intake: Oral 240 360 Other: # Voids 3 2 - Exam No acute distress, oriented 3. Frequent coughing with characteristic cough for somebody with tracheal bronchomalacia. HEENT examination is grossly unremarkable. Mucous membranes are moist. No oral lesions. Neck supple. Full range of motion. No adenopathy or thyromegaly. Neck veins are flat. And auscultating her neck area, she has stridor but she seems to create it when she exhales rapidly. Cardio vascular examination reveals regular rhythm rate. S1-S2 normal. Lungs are relatively clear. A few scattered rhonchi. No wheezes. Abdomen soft. Extremities are intact. - Labs CBC & Chem 7: 01/11/17 08:30 01/11/17 08:30 Labs: Abnormal Lab Results - Last 24 Hours (Table) 01/10/17 01/10/17 01/10/17 Range/Units 11:45 12:20 17:19 WBC (3.8-10.6) k/uL Neutrophils # (1.3-7.7) k/uL PT (9.0-12.0) sec BUN (7-17) mg/dL Glucose (74-99) mg/dL POC Glucose (mg/dL) 126 H 115 H (75-99) mg/dL Plasma Lactic Acid Seth 3.3 H* (0.7-2.0) mmol/L 01/10/17 01/11/17 01/11/17 Range/Units 21:19 07:18 08:30 WBC (3.8-10.6) k/uL Neutrophils # (1.3-7.7) k/uL PT 24.1 H (9.0-12.0) sec BUN (7-17) mg/dL Glucose (74-99) mg/dL POC Glucose (mg/dL) 162 H 137 H (75-99) mg/dL Plasma Lactic Acid Seth (0.7-2.0) mmol/L 01/11/17 01/11/17 Range/Units 08:30 08:30 WBC 24.6 H (3.8-10.6) k/uL Neutrophils # 21.9 H (1.3-7.7) k/uL PT (9.0-12.0) sec BUN 31 H (7-17) mg/dL Glucose 135 H (74-99) mg/dL POC Glucose (mg/dL) (75-99) mg/dL Plasma Lactic Acid Seth (0.7-2.0) mmol/L Assessment and Plan (1) Asthma Status: Acute (2) Bronchospasm Status: Acute (3) Stridor Status: Acute (4) Tracheomalacia Status: Acute (5) Acute bronchitis Status: Acute (6) Tracheobronchitis Status: Acute Plan: Plan dated 01/10/2017 The patient's medication labs and x-rays are reviewed. Additional recommendations suggestions are forthcoming. Prognosis is good. Eva does not look his better she's been in the past. It appears it was more of an upper airway issue that her asthma. We'll continue to follow. Prognosis is guarded. Plan dated 01/11/2017 The patient will continue on the current medications. She is on all the appropriate bronchodilators steroids antibiotics, etc. In addition, we'll try to additional things including heliox mixture of 30% oxygen 70% helium. In addition, she is apparently responded in the past aerosolized lidocaine. We'll try 3 mL of that to see whether or not it makes a difference. Additional recommendations suggestions are forthcoming. Prognosis is guarded. We'll continue to follow. Time with Patient: Less than 30
[2017-01-11 11:53] LABS: Glucose,Whole Blood 160 mg/dL (75-99)
[2017-01-11] MEDS: LIDOCAINE 2% (PF) 20 MG/ML 10ML INHALATION PRN ×3 (11:56→20:20)
[2017-01-11] MEDS: MAGNESIUM OXIDE 400 MG TAB PO SCH (13:27)
--- NOTE | 2017-01-11 16:56 | P.PN ---
Subjective Date of service . Progress note being dictated for Dr. Soriano. Interval history: Is a 56-year-old female admitted with acute COPD exacerbation secondary to tracheobronchitis, bronchotracheomalacia for stridor in a patient with significant history of multiple bronchoscopies ,COPD exacerbations, and multiple other medical issues. Continues on nebulized bronchodilators, IV antibiotics, and systemic steroids with improvement in breathing. No stridor currently. Yesterday IV fluids increased regarding increased Repeat lactic acid. Lactic acid improved this morning, and 1.7. Chest x-ray nonacute. Evaluated by pulmonary with recommendations noted. Afebrile. WBC 24.6. Denies chest pain, palpitations. Objective - Vital Signs Vital signs: Vital Signs Temp 97.9 F 01/11/17 15:00 Pulse 88 01/11/17 15:43 Resp 22 01/11/17 16:00 BP 120/66 01/11/17 15:00 Pulse Ox 97 01/11/17 15:00 Intake & Output 01/10/17 01/11/17 01/11/17 18:59 06:59 18:59 Intake Total 240 600 Balance 240 600 Weight 133 kg Intake: Oral 240 600 Other: # Voids 3 2 2 - Exam PHYSICAL EXAM: VITAL SIGNS: As above GENERAL: [Sitting up in bed, no acute distress, hoarseness improving] HEENT: [Pupils equal conjunctiva normal.] NECK: [Supple, no JVD] RESPIRATORY EFFORT:[Normal] LUNGS: [No stridor, scattered occasional coarse rhonchi, no wheezes CARDIOVASCULAR[regular S1 and S2, no murmurs ,rubs or gallops, no edema] GI: [Abdomen soft, nontender, positive bowel sounds.] PSYCH: [Alert and oriented -3, mood and affect normal.] NEURO: No focal deficits, moves all 4 extremities, strength and sensation intact - Labs CBC & Chem 7: 01/11/17 08:30 01/11/17 08:30 Labs: Abnormal Lab Results - Last 24 Hours (Table) 01/10/17 01/10/17 01/11/17 Range/Units 17:19 21:19 07:18 WBC (3.8-10.6) k/uL Neutrophils # (1.3-7.7) k/uL PT (9.0-12.0) sec BUN (7-17) mg/dL Glucose (74-99) mg/dL POC Glucose (mg/dL) 115 H 162 H 137 H (75-99) mg/dL 01/11/17 01/11/17 01/11/17 Range/Units 08:30 08:30 08:30 WBC 24.6 H (3.8-10.6) k/uL Neutrophils # 21.9 H (1.3-7.7) k/uL PT 24.1 H (9.0-12.0) sec BUN 31 H (7-17) mg/dL Glucose 135 H (74-99) mg/dL POC Glucose (mg/dL) (75-99) mg/dL 01/11/17 Range/Units 11:49 WBC (3.8-10.6) k/uL Neutrophils # (1.3-7.7) k/uL PT (9.0-12.0) sec BUN (7-17) mg/dL Glucose (74-99) mg/dL POC Glucose (mg/dL) 160 H (75-99) mg/dL Assessment and Plan Plan: 1. Acute COPD exacerbation secondary to tracheobronchitis, no pneumonia per chest x-ray. 2. Acute tracheobronchitis, failed outpatient treatment 3. Broncho tracheomalacia with stridor 4. Chronic bronchial asthma 5. Coagulopathy, elevated INR 6. History of DVTs 7. Morbid obesity, BMI 43.9 8. Obstructive sleep apnea, wears CPAP at home 9. History of CVA, TIA without residual weakness 10. Chronic congestive heart failure with systolic dysfunction, EF 40-45%, no acute exacerbation 11. Multiple admissions regarding COPD exacerbation with multiple bronchoscopies 12. Hypothyroidism 13. Gastroesophageal reflux disease 14. Scoliosis 15. Degenerative joint disease 16. Multiple ALLERGIES to medications and antibiotics Plan: Continue on current medication regime , aerosolized lidocaine, monitoring and symptomatic treatment. IV fluids decreased. Follow closely with pulmonary. Discharge planning in progress for tomorrow pending pulmonary clearance. Plan of care discussed with patient who verbalizes agreement with the understanding of. Prognosis guarded. Further recommendations to follow. The impression and plan of care has been dictated as directed. : I performed a H&P examination of this patient and discussed the same with the dictator. I agree with the dictator's note. Any additional findings/opinions/ etc. will be noted.
[2017-01-11 17:24] LABS: Glucose,Whole Blood 114 mg/dL (75-99)
[2017-01-11] MEDS: CHOLECALCIFEROL 1,000 UNIT TAB PO SCH (17:42)
[2017-01-11] MEDS: WARFARIN 5 MG TAB PO SCH (17:43)
[2017-01-11] MEDS: ASCORBIC ACID 500 MG TAB PO SCH (17:43)
[2017-01-11] MEDS: POTASSIUM CHLORIDE ER 20 MEQ TAB.ER PO SCH (17:43)
[2017-01-11] MEDS: ZINC SULFATE 220 MG CAP PO SCH (17:43)
[2017-01-11] MEDS: CALCIUM CARB-VIT D 500MG-200UN 1 EACH TAB PO SCH (17:43)
[2017-01-11] MEDS ORDERED: SODIUM CHLORIDE 0.9% 1,000 ML IV SCH (18:00)
[2017-01-11] MEDS: MONTELUKAST 10 MG TAB PO SCH (20:30)
[2017-01-11] MEDS: LORATADINE 10 MG TAB PO SCH (20:30)
[2017-01-11 21:12] LABS: Glucose,Whole Blood 141 mg/dL (75-99)
[2017-01-12] MEDS: SODIUM CHLORIDE 0.9% 1,000 ML IV SCH ×2 (04:39→14:32)
[2017-01-12] MEDS: LEVOTHYROXINE 50 MCG TAB PO SCH (05:30)
[2017-01-12] MEDS: methylPREDNISolone SOD SUCCI 125 MG/2 ML VIAL IV SCH ×3 (05:30→18:37)
[2017-01-12 07:14] LABS: Glucose,Whole Blood 121 mg/dL (75-99)
[2017-01-12] MEDS: INSULIN LISPRO (humaLOG) 300 UNIT/3 ML VIAL SQ SCH ×4 (07:26→23:20)
[2017-01-12] MEDS: LOSARTAN 50 MG TAB PO SCH (08:02)
[2017-01-12] MEDS: LACTOBACILLUS ACIDOPH & BULGAR 1 EACH PACKET PO SCH ×2 (08:02→21:56)
[2017-01-12] MEDS: CHLORPHEN-HYDROcod 8-10mg/5ml 5 ML ORAL.SYRG PO SCH ×2 (08:02→21:54)
[2017-01-12] MEDS: DOXYCYCLINE 50 MG CAP PO SCH ×2 (08:02→21:55)
[2017-01-12] MEDS: METOPROLOL TARTRATE 50 MG TAB PO SCH (08:02)
[2017-01-12] MEDS: ALPRAZolam 0.5 MG TAB PO SCH ×3 (08:02→23:23)
[2017-01-12] MEDS: LIDOCAINE 2% (PF) 20 MG/ML 10ML INHALATION PRN ×3 (08:33→20:16)
[2017-01-12] MEDS: IPRATROPIUM-ALBUTEROL 3 ML NEB INHALATION PRN ×4 (08:56→20:16)
[2017-01-12] MEDS: SYMBICORT 160-4.5 MCG INHALER INHALATION SCH ×2 (08:56→20:16)
[2017-01-12 09:18] LABS: INR 2.1 (<1.1); Prothrombin Time 20.7 sec (9.0-12.0)
[2017-01-12] MEDS: MAGNESIUM OXIDE 400 MG TAB PO SCH (11:08)
--- NOTE | 2017-01-12 11:13 | CDI ---
In responding to this query, please exercise your independent professional judgment. The [facility] Coding Staff and Clinical Documentation Specialists appreciate your assistance in clarifying documentation, maintaining compliance with coding guidelines, accurately documenting patients condition and capturing severity of illness. The fact that a question is asked does not imply that any particular answer is desired or expected. Communication forms are a method of clarifying documentation and are not made part of the Legal Health Record. Thank you in advance for your clarification. Last Revision, December 2015 Alexander Bustos [address] [facility] [place] [address] Documentation Clarification Form Date: 01/12/2017 10:56:00 AM From: Jessica Fernández, CCS, CCDS Admit Date: 01/10/2017 11:16:00 AM Patient Name: Eva Mcwilliams Visit Number: [id number] Discharge Date: Dr. Sanjay Winston: 56 yo female, presented with SOB, JOSE MANUEL, cough & stridor. Patient history: Chronic Bronchial Asthma nos, COPD, Chronic systolic CHF, Sleep apnea, Morbid Obesity w/BMI >40, Home CPAP and history of recurrent bronchitis & chronic tracheobronchomalacia, follows w/survey project manager. Clinical Indicators: Respiratory rate 28 w/nasal flaring, stridor, cough, SOB and tachypnea Radiology: CXR: negative for acute cardiopulmonary process. Treatment: IV Solumedrol, Albuterol neb txs, O2 2Lnc, IV Rocephin. Consult: Pulmonary In your professional opinion, can you please further specify the following, if known? With Acute Exacerbation Status asthmaticus Acute lower respiratory infection COPD (specify with or without exacerbation) Chronic obstructive bronchitis Other, please specify Unable to determine Severity Mild intermittent Mild persistent Moderate persistent Severe persistent Other, please specify ____ Unable to determine Form or Type Cough variant Childhood Exercise induced bronchospasm Extrinsic allergic Idiosyncratic Intrinsic nonallergic Late-onset Mixed Other, please specify Unable to determine Please document in your progress notes and discharge summary in order to capture severity of illness and risk of mortality. Include clinical findings that support your diagnosis. FYI: Press F11 to launch patient chart. Place X here if this finding has no clinical significance, is not applicable or if you are not able to provide any additional documentation. Thank You. CECILIO
[2017-01-12 11:36] LABS: Glucose,Whole Blood 164 mg/dL (75-99)
--- NOTE | 2017-01-12 13:24 | P.PN ---
Subjective 56-year-old female well-known to our service. She has history of severe chronic bronchial asthma intermittently laryngeal dyskinesia upper airway obstruction with stridor and tracheal bronchomalacia. She's had multiple admissions to this hospital although the last year she's done much better. Her primary environment artist is Dr. Ag. Doing relatively well today. Was admitted for data half ago onto the emergency department. I did ask the respiratory therapist to try some aerosolized lidocaine on her because in the past that seems to help. In addition, we'll try a mixture of 30 % oxygen is 70% helium to see whether or not that helps to ameliorate or reduce the upper airway obstruction. A lot of it is psychogenic in that she gets very stressed out and anxious and the airway obstruction seem to get or's. She just has a very floppy upper airway my opinion. The patient is seen again today 01/12/2017 in follow-up on the regular medical floor. She is awake and alert in no acute distress. She does not appear to be in any acute respiratory distress at this time. She does have some forcible end expiratory wheezing. No stridor. She is maintaining good O2 saturations in the upper 90s on room air. She is afebrile. Objective - Vital Signs Vital signs: Vital Signs Temp 96.9 F L 01/12/17 07:00 Pulse 82 01/12/17 13:05 Resp 18 01/12/17 12:43 BP 152/82 01/12/17 07:00 Pulse Ox 97 01/12/17 07:00 Intake & Output 01/11/17 01/12/17 01/12/17 18:59 06:59 18:59 Intake Total 600 480 Balance 600 480 Weight 135 kg Intake: Oral 600 480 Other: Voiding Method Toilet Toilet # Voids 2 2 1 - Exam GENERAL EXAM: Morbidly obese. Alert, active, comfortable in no apparent distress. HEAD: Normocephalic. EYES: Normal reaction of pupils, equal size. NOSE: Clear with pink turbinates. THROAT: There is crowding the posterior pharynx. Short. No erythema or exudates. NECK: No masses, no JVD. CHEST: No chest wall deformity. LUNGS: Equal air entry with faint end expiratory wheeze. Diminished. CVS: S1 and S2 normal with no audible mumurs, regular rhythm. ABDOMEN: No hepatosplenomegaly, normal bowel sounds, no guarding or rigidity. SPINE: No scoliosis or deformity SKIN: No rashes CENTRAL NERVOUS SYSTEM: No focal deficits, tone is normal in all 4 extremities. Extremities: There is trace peripheral edema. No clubbing, no cyanosis. Peripheral pulses are intact. - Labs CBC & Chem 7: 01/11/17 08:30 01/11/17 08:30 Labs: Abnormal Lab Results - Last 24 Hours (Table) 01/11/17 01/11/17 01/12/17 Range/Units 17:21 21:07 07:04 PT (9.0-12.0) sec POC Glucose (mg/dL) 114 H 141 H 121 H (75-99) mg/dL 01/12/17 01/12/17 Range/Units 08:30 11:32 PT 20.7 H (9.0-12.0) sec POC Glucose (mg/dL) 164 H (75-99) mg/dL Assessment and Plan Plan: Impression: #1 Acute exacerbation of chronic moderate persistent mixed of both intrinsic and extrinsic environmental asthma. #2 Acute stridor secondary to chronic vocal cord dysfunction and significant tracheobronchomalacia, recovered. #3 Tracheobronchomalacia. #4 Acute tracheobronchitis. #5 Morbid obesity. #6 Hypothyroidism. #7 Obstructive sleep apnea utilizing CPAP in the outpatient setting. Plan: The patient was seen and evaluated by Dr. Winston. She is improved today as compared to yesterday. She is less bronchospastic and wheezing. No stridor. We'll continue with her current medications. We'll increase her activity as tolerated. We'll continue to follow.
--- NOTE | 2017-01-12 16:45 | P.PN ---
Subjective Date of service . Progress note being dictated for Dr. Soriano. Interval history: Is a 56-year-old female admitted with acute COPD exacerbation secondary to tracheobronchitis, bronchotracheomalacia for stridor in a patient with significant history of multiple bronchoscopies ,COPD exacerbations, and multiple other medical issues. Continues on nebulized bronchodilators, IV antibiotics, and systemic steroids with improvement in breathing. Received aerolozed lidocaine yesterday. No stridor currently, fine expiratory wheezing present with less bronchospasms. Afebrile. Denies chest pain, palpitations. Objective - Vital Signs Vital signs: Vital Signs Temp 97.2 F L 01/12/17 15:00 Pulse 82 01/12/17 16:18 Resp 20 01/12/17 15:00 BP 118/76 01/12/17 15:00 Pulse Ox 93 L 01/12/17 15:00 Intake & Output 01/11/17 01/12/17 01/12/17 18:59 06:59 18:59 Intake Total 600 960 Balance 600 960 Weight 135 kg Intake: Oral 600 960 Other: Voiding Method Toilet Toilet # Voids 2 2 2 - Exam PHYSICAL EXAM: VITAL SIGNS: As above GENERAL: [Sitting up in bed, no acute distress, HEENT: [Pupils equal conjunctiva normal.] NECK: [Supple, no JVD] RESPIRATORY EFFORT:[Normal] LUNGS: [No stridor, diminished with fine bilateral expiratory wheeze CARDIOVASCULAR[regular S1 and S2, no murmurs ,rubs or gallops, no edema] GI: [Abdomen soft, nontender, positive bowel sounds.] PSYCH: [Alert and oriented -3, mood and affect normal.] NEURO: No focal deficits, moves all 4 extremities, strength and sensation intact - Labs CBC & Chem 7: 01/11/17 08:30 01/11/17 08:30 Labs: Abnormal Lab Results - Last 24 Hours (Table) 01/11/17 01/11/17 01/12/17 Range/Units 17:21 21:07 07:04 PT (9.0-12.0) sec POC Glucose (mg/dL) 114 H 141 H 121 H (75-99) mg/dL 01/12/17 01/12/17 Range/Units 08:30 11:32 PT 20.7 H (9.0-12.0) sec POC Glucose (mg/dL) 164 H (75-99) mg/dL Assessment and Plan Plan: 1. Acute COPD exacerbation secondary to tracheobronchitis, no pneumonia per chest x-ray. 2. Acute tracheobronchitis, failed outpatient treatment 3. Broncho tracheomalacia with stridor 4. Chronic bronchial asthma 5. Coagulopathy, elevated INR 6. History of DVTs 7. Morbid obesity, BMI 43.9 8. Obstructive sleep apnea, wears CPAP at home 9. History of CVA, TIA without residual weakness 10. Chronic congestive heart failure with systolic dysfunction, EF 40-45%, no acute exacerbation 11. Multiple admissions regarding COPD exacerbation with multiple bronchoscopies 12. Hypothyroidism 13. Gastroesophageal reflux disease 14. Scoliosis 15. Degenerative joint disease 16. Multiple ALLERGIES to medications and antibiotics Plan: Continue on current medication regime , aerosolized lidocaine, monitoring and symptomatic treatment. Increase ambulation as tolerated .Follow closely with pulmonary. Discharge planning in progress for tomorrow pending pulmonary clearance. Further recommendations to follow. The impression and plan of care has been dictated as directed. : I performed a H&P examination of this patient and discussed the same with the dictator. I agree with the dictator's note. Any additional findings/opinions/ etc. will be noted.
[2017-01-12 17:15] LABS: Glucose,Whole Blood 131 mg/dL (75-99)
[2017-01-12] MEDS: POTASSIUM CHLORIDE ER 20 MEQ TAB.ER PO SCH (17:54)
[2017-01-12] MEDS: CALCIUM CARB-VIT D 500MG-200UN 1 EACH TAB PO SCH (17:54)
[2017-01-12] MEDS: ASCORBIC ACID 500 MG TAB PO SCH (17:54)
[2017-01-12] MEDS: CHOLECALCIFEROL 1,000 UNIT TAB PO SCH (17:54)
[2017-01-12] MEDS: ZINC SULFATE 220 MG CAP PO SCH (17:54)
[2017-01-12] MEDS: WARFARIN 5 MG TAB PO SCH (18:48)
[2017-01-12 20:49] LABS: Glucose,Whole Blood 139 mg/dL (75-99)
[2017-01-12] MEDS ORDERED: MELATONIN 3 MG TABLET PO SCH (21:00)
[2017-01-12] MEDS: MONTELUKAST 10 MG TAB PO SCH (21:57)
[2017-01-12] MEDS: LORATADINE 10 MG TAB PO SCH (21:57)
[2017-01-13] MEDS: methylPREDNISolone SOD SUCCI 125 MG/2 ML VIAL IV SCH ×3 (00:25→11:07)
[2017-01-13] MEDS: SODIUM CHLORIDE 0.9% 1,000 ML IV SCH ×2 (00:25→09:46)
[2017-01-13] MEDS: LEVOTHYROXINE 50 MCG TAB PO SCH (06:23)
[2017-01-13] MEDS: ALPRAZolam 0.5 MG TAB PO SCH (06:26)
[2017-01-13 07:29] LABS: Glucose,Whole Blood 130 mg/dL (75-99)
[2017-01-13 07:43] VITALS: RESP 20
[2017-01-13] MEDS: INSULIN LISPRO (humaLOG) 300 UNIT/3 ML VIAL SQ SCH ×2 (07:47→11:54)
[2017-01-13] MEDS: METOPROLOL TARTRATE 50 MG TAB PO SCH (08:06)
[2017-01-13] MEDS: LACTOBACILLUS ACIDOPH & BULGAR 1 EACH PACKET PO SCH (08:06)
[2017-01-13] MEDS: LOSARTAN 50 MG TAB PO SCH (08:06)
[2017-01-13] MEDS: DOXYCYCLINE 50 MG CAP PO SCH (08:06)
[2017-01-13] MEDS: CHLORPHEN-HYDROcod 8-10mg/5ml 5 ML ORAL.SYRG PO SCH (08:07)
[2017-01-13] MEDS: IPRATROPIUM-ALBUTEROL 3 ML NEB INHALATION PRN ×2 (08:24→11:56)
[2017-01-13] MEDS: SYMBICORT 160-4.5 MCG INHALER INHALATION SCH (08:26)
[2017-01-13] MEDS: LIDOCAINE 2% (PF) 20 MG/ML 10ML INHALATION PRN ×2 (08:27→11:56)
[2017-01-13 09:14] LABS: Basophils % (A) 0 %; CH 29.6; CHCM 32.2; Eosinophils % (A) 0 %; HCT 37.6 % (34.0-46.0); HDW 2.29; HGB 12.1 gm/dL (11.4-16.0); Luc # (Auto) 0.04; Luc % (Auto) 0; Lymphocytes # (A) 1.1 k/uL (1.0-4.8); Lymphocytes % (A) 8 %; MCH 29.7 pg (25.0-35.0); MCHC 32.3 g/dL (31.0-37.0); MCV 92.2 fL (80.0-100.0); Mean Platelet Volume 7.4; Monocytes # (A) 0.3 k/uL (0-1.0); Monocytes % (A) 2 %; Neutrophils # (A) 11.1 k/uL (1.3-7.7); Neutrophils % (A) 89 %; RBC 4.08 m/uL (3.80-5.40); WBC 12.5 k/uL (3.8-10.6); WBC (Perox) 13.11
[2017-01-13 09:27] LABS: INR 2.4 (<1.1); Prothrombin Time 23.1 sec (9.0-12.0)
[2017-01-13 09:46] LABS: Anion Gap 8 mmol/L; Blood Urea Nitrogen 29 mg/dL (7-17); Calcium 8.9 mg/dL (8.4-10.2); Carbon Dioxide 26 mmol/L (22-30); Chloride 106 mmol/L (98-107); Glucose 241 mg/dL (74-99); Non-African American GFR(MDRD) >60 (>60 ml/min/1.73 sqM); Potassium 4.6 mmol/L (3.5-5.1); Sodium 140 mmol/L (137-145)
--- NOTE | 2017-01-13 10:43 | P.PN ---
Subjective 56-year-old female well-known to our service. She has history of severe chronic bronchial asthma intermittently laryngeal dyskinesia upper airway obstruction with stridor and tracheal bronchomalacia. She's had multiple admissions to this hospital although the last year she's done much better. Her primary geological survey field assistant is Dr. Ag. Doing relatively well today. Was admitted for data half ago onto the emergency department. I did ask the respiratory therapist to try some aerosolized lidocaine on her because in the past that seems to help. In addition, we'll try a mixture of 30 % oxygen is 70% helium to see whether or not that helps to ameliorate or reduce the upper airway obstruction. A lot of it is psychogenic in that she gets very stressed out and anxious and the airway obstruction seem to get or's. She just has a very floppy upper airway my opinion. Progress note dated 01/13/2017 This is a 56-year-old female with a history of asthma tracheal bronchomalacia intermittent laryngeal dyskinesia and airway abnormality, primarily upper. She also suffers from significant stridor. She's had multiple admissions to the hospital although none recently in the last year or so. Still coughing up a small amount of yellow phlegm. Feeling much better though. Short of breath with any activity. No obvious stridor either audible and/or my auscultation. She does seem to respond nicely said to the aerosolized lidocaine treatments. Is on all the usual medications. Again feeling much better. Probably be discharged home today. Sees my partner in the office. Objective - Vital Signs Vital signs: Vital Signs Temp 97.0 F L 01/13/17 07:00 Pulse 60 01/13/17 07:00 Resp 20 01/13/17 07:00 BP 153/67 01/13/17 07:00 Pulse Ox 97 01/13/17 07:00 Intake & Output 01/12/17 01/13/17 01/13/17 18:59 06:59 18:59 Intake Total 960 680 480 Balance 960 680 480 Weight 143 kg Intake: Oral 960 680 480 Other: Voiding Method Toilet # Voids 2 0 # Bowel Movements 0 - Exam No acute distress, oriented 3. Frequent coughing with characteristic cough for somebody with tracheal bronchomalacia. HEENT examination is grossly unremarkable. Mucous membranes are moist. No oral lesions. Neck supple. Full range of motion. No adenopathy or thyromegaly. Neck veins are flat. And auscultating her neck area, she has stridor but she seems to create it when she exhales rapidly. Cardio vascular examination reveals regular rhythm rate. S1-S2 normal. Lungs are relatively clear. A few scattered rhonchi. No wheezes. Abdomen soft. Extremities are intact. - Labs CBC & Chem 7: 01/13/17 08:41 01/13/17 08:41 Labs: Abnormal Lab Results - Last 24 Hours (Table) 01/12/17 01/12/17 01/12/17 Range/Units 11:32 17:13 20:48 WBC (3.8-10.6) k/uL Neutrophils # (1.3-7.7) k/uL PT (9.0-12.0) sec BUN (7-17) mg/dL Glucose (74-99) mg/dL POC Glucose (mg/dL) 164 H 131 H 139 H (75-99) mg/dL 01/13/17 01/13/17 01/13/17 Range/Units 07:14 08:41 08:41 WBC 12.5 H (3.8-10.6) k/uL Neutrophils # 11.1 H (1.3-7.7) k/uL PT 23.1 H (9.0-12.0) sec BUN (7-17) mg/dL Glucose (74-99) mg/dL POC Glucose (mg/dL) 130 H (75-99) mg/dL 01/13/17 Range/Units 08:41 WBC (3.8-10.6) k/uL Neutrophils # (1.3-7.7) k/uL PT (9.0-12.0) sec BUN 29 H (7-17) mg/dL Glucose 241 H (74-99) mg/dL POC Glucose (mg/dL) (75-99) mg/dL Assessment and Plan (1) Asthma Status: Acute (2) Bronchospasm Status: Acute (3) Stridor Status: Acute (4) Tracheomalacia Status: Acute (5) Acute bronchitis Status: Acute (6) Tracheobronchitis Status: Acute Plan: Plan dated 01/10/2017 The patient's medication labs and x-rays are reviewed. Additional recommendations suggestions are forthcoming. Prognosis is good. Eva does not look his better she's been in the past. It appears it was more of an upper airway issue that her asthma. We'll continue to follow. Prognosis is guarded. Plan dated 01/11/2017 The patient will continue on the current medications. She is on all the appropriate bronchodilators steroids antibiotics, etc. In addition, we'll try to additional things including heliox mixture of 30% oxygen 70% helium. In addition, she is apparently responded in the past aerosolized lidocaine. We'll try 3 mL of that to see whether or not it makes a difference. Additional recommendations suggestions are forthcoming. Prognosis is guarded. We'll continue to follow. Plan dated 01/13/2017 The patient's doing well. Could likely be discharged home today. The patient will go home on a short prednisone burst and taper and a short course of antibiotics. Should follow-up with my partner in the office. No additional recommendations are made. Prognosis is guarded. She does seem improved though. Time with Patient: Less than 30
[2017-01-13] MEDS: MAGNESIUM OXIDE 400 MG TAB PO SCH (11:07)
[2017-01-13 12:05] LABS: Glucose,Whole Blood 109 mg/dL (75-99)
[2017-01-13 14:44] VITALS: BP 164/83; PULSE 75; TEMP 98.2
--- NOTE | 2017-01-13 17:30 | P.DS ---
Providers Date of admission: 01/10/17 11:16 Expected date of discharge: 01/13/17 Attending physician: Agustina Soriano Consults: Dr. Winston, Pulmonary Primary care physician: [facility] Hospital Course: Final Diagnoses: 1. Acute COPD, acute asthma exacerbation secondary to tracheobronchitis, no pneumonia per chest x-ray. 2. Acute tracheobronchitis, failed outpatient treatment 3. Broncho tracheomalacia with stridor 4. Chronic bronchial asthma 5. Coagulopathy, elevated INR 6. History of DVTs 7. Morbid obesity, BMI 43.9 8. Obstructive sleep apnea, wears CPAP at home 9. History of CVA, TIA without residual weakness 10. Chronic congestive heart failure with systolic dysfunction, EF 40-45%, no acute exacerbation 11. Multiple admissions regarding COPD exacerbation with multiple bronchoscopies 12. Hypothyroidism 13. Gastroesophageal reflux disease 14. Scoliosis 15. Degenerative joint disease 16. Multiple ALLERGIES to medications and antibiotics Hospital course:This Is a 56-year-old female admitted with acute COPD exacerbation secondary to tracheobronchitis, bronchotracheomalacia for stridor in a patient with significant history of multiple bronchoscopies ,COPD exacerbations, and multiple other medical issues. Evaluated by pulmonary. Maintained on nebulized bronchodilators, IV antibiotics, systemic steroids, as well as aerosolized lidocaine. Significant clinical improvement. Patient has been cleared for discharge by pulmonary. Patient is being discharged home in a stable condition with guarded prognosis Patient Condition at Discharge: Stable Plan - Discharge Summary New Discharge Prescriptions: Doxycycline [Vibramycin] 100 mg PO BID #10 cap predniSONE 10 mg PO DIRECTED #30 tab Discharge Medication List Albuterol Sulfate [Proair Hfa] 2 puff INHALATION RT-Q4H PRN 04/11/14 [History] Ascorbic Acid [Vitamin C] 500 mg PO AC-SUPPER 04/11/14 [History] EPINEPHrine (Auto Inject) [Epipen] 0.3 mg IM ONCE PRN 04/11/14 [History] Famotidine [Pepcid] 20 mg PO BID 04/11/14 [History] Zinc 50 mg PO AC-SUPPER 04/11/14 [History] Losartan Potassium [Cozaar] 50 mg PO QAM 10/09/14 [History] Calcium Carbonate/Vitamin D3 [Calcium 600-Vit D3 400 Tablet] 1 tab PO AC-SUPPER 12/08/14 [History] Nystatin [Nystop] 1 applic TOPICAL BID PRN 12/08/14 [History] Ipratropium-Albuterol Nebulize [Duoneb 0.5 mg-3 mg/3 ml Soln] 3 ml INHALATION RT -QID ampul.neb 12/15/14 [Rx] Magnesium Oxide [Mag-Ox] 250 mg PO DAILY 12/18/14 [History] Cholecalciferol [Vitamin D3] 5,000 unit PO AC-SUPPER 02/06/15 [History] Furosemide [Lasix] 40 mg PO BID@0700,1500 04/22/15 [History] Potassium Chloride [Klor-Con 20] 20 meq PO AC-SUPPER 04/22/15 [History] ALPRAZolam [Xanax] 0.5 mg PO Q8H #90 tablet 05/11/15 [Rx] Mometasone/Formoterol [Dulera 200 Mcg/5 Mcg Inhaler] 2 puff INHALATION RT-BID [History] Warfarin [Coumadin] 5 mg PO HS 09/12/15 [History] Cetirizine HCl [Zyrtec] 10 mg PO HS 12/21/15 [History] Montelukast [Singulair] 10 mg PO HS 12/21/15 [History] CHLORPHEN-HYDROcod 8-10mg/5ml [Tussionex] 5 ml PO Q12H 12/22/15 [History] L.acidoph,Paracasei, B.lactis [Probiotic] 1 cap PO DAILY 03/03/16 [History] Levothyroxine Sodium [Synthroid] 50 mcg PO QAM 03/03/16 [History] hydrOXYzine HCL [Atarax] 50 mg PO DAILY PRN 03/03/16 [History] traMADol HCl [Ultram] 50 mg PO TID PRN 03/03/16 [History] Florastor 1 cap PO BID 01/09/17 [History] Hydrocodone/Acetaminophen [[place] 5-325] 1 tab PO Q6HR PRN 01/09/17 [History] L. Rhamnosus GG/Inulin [Culturelle Chewable Tablet] 1 tab PO W/LUNCH 01/09/17 [ History] Metoprolol Tartrate [Lopressor] 50 mg PO DAILY 01/09/17 [History] Nystatin 100,000 Unit/ml Susp [Mycostatin Oral Susp] 5 ml PO QID PRN 01/09/17 [ History] Orphenadrine Citrate 100 mg PO BID PRN 01/09/17 [History] Doxycycline [Vibramycin] 100 mg PO BID #10 cap 01/13/17 [Rx] predniSONE 10 mg PO DIRECTED #30 tab 01/13/17 [Rx] Follow up Appointment(s)/Referral(s): Russell Hinson MD [Primary Care Provider] - 3 Days (office closed. please call to schedule an appointment) Nadeen Feng MD [STAFF PHYSICIAN] - 01/27/17 11:00 am Ambulatory/Diagnostic Orders: Prothrombin Time INR [LAB.AMB] Time Frame: 3 Days, Location: Determined By Patient Patient Instructions/Handouts: COPD (Chronic Obstructive Pulmonary Disease) (DC ), Leukocytosis (DC) Discharge Disposition: HOME SELF-CARE
== END 2017-01-13 15:08 | disposition home or self-care (01) | DRG 191 ==
LOC: EC 11:41 → 4MS4W 14:53 → OBSVTOIN 01-10 11:16
PROVIDERS: ADMIT Internal Medicine; ATTEND Internal Medicine
DX: J44.0 Chronic obstructive pulmonary disease with (acute) lower respiratory infection (principal); J45.901 Unspecified asthma with (acute) exacerbation; D68.9 Coagulation defect, unspecified; Z68.41 Body mass index [BMI] 40.0-44.9, adult; I11.0 Hypertensive heart disease with heart failure; I50.22 Chronic systolic (congestive) heart failure; E66.01 Morbid (severe) obesity due to excess calories; J44.1 Chronic obstructive pulmonary disease with (acute) exacerbation; E03.9 Hypothyroidism, unspecified; F41.9 Anxiety disorder, unspecified; G47.33 Obstructive sleep apnea (adult) (pediatric); J20.9 Acute bronchitis, unspecified; J38.3 Other diseases of vocal cords; J39.8 Other specified diseases of upper respiratory tract; J98.09 Other diseases of bronchus, not elsewhere classified; K21.9 Gastro-esophageal reflux disease without esophagitis; M19.90 Unspecified osteoarthritis, unspecified site; M41.9 Scoliosis, unspecified; Z79.01 Long term (current) use of anticoagulants; Z79.899 Other long term (current) drug therapy; Z82.49 Family history of ischemic heart disease and other diseases of the circulatory system; Z86.718 Personal history of other venous thrombosis and embolism; Z86.73 Personal history of transient ischemic attack (TIA), and cerebral infarction without residual deficits; Z88.2 Allergy status to sulfonamides; Z88.1 Allergy status to other antibiotic agents; Z91.010 Allergy to peanuts; Z99.81 Dependence on supplemental oxygen
CPT/HCPCS: 36415; 70360; 71020; 80048; 80053; 82550; 82553; 83036; 83605; 83735; 83880; 84484; 85025; 85610; 85730; 87040; 87502; 93005; 94640; 94760; 96365; 96366; 96375; 96376; 99285

== ENCOUNTER → 2017-01-16 | Outpatient (CLI) | payer BC ==
[2017-01-16 11:08] LABS: CH 29.9; CHCM 33.2; HDW 2.38; HGB 13.5 gm/dL (11.4-16.0); MCH 29.9 pg (25.0-35.0); MCV 90.5 fL (80.0-100.0); Mean Platelet Volume 7.3; RBC 4.53 m/uL (3.80-5.40); RDW 14.1 % (11.5-15.5); WBC 18.5 k/uL (3.8-10.6)
[2017-01-16 11:16] LABS: INR 3.4 (<1.1); Prothrombin Time 33.5 sec (9.0-12.0)
[2017-01-16 11:25] LABS: Anion Gap 9 mmol/L; Blood Urea Nitrogen 34 mg/dL (7-17); Calcium 8.4 mg/dL (8.4-10.2); Carbon Dioxide 29 mmol/L (22-30); Chloride 103 mmol/L (98-107); Glucose 108 mg/dL (74-99); Non-African American GFR(MDRD) 60 (>60 ml/min/1.73 sqM); Sodium 141 mmol/L (137-145)
== END ==
LOC: LABWHC1 10:38
PROVIDERS: ATTEND Nurse Practitioner
DX: Z51.81 Encounter for therapeutic drug level monitoring (principal); Z79.01 Long term (current) use of anticoagulants
CPT/HCPCS: 36415; 80048; 85027; 85610

== ENCOUNTER → 2017-01-26 | Outpatient (CLI) | payer BC ==
[2017-01-26 13:22] LABS: INR 3.2 (<1.1); Prothrombin Time 31.3 sec (9.0-12.0)
== END | disposition home or self-care (01) ==
LOC: LABWHC1 12:25
PROVIDERS: ATTEND Internal Medicine
DX: Z09 Encounter for follow-up examination after completed treatment for conditions other than malignant neoplasm (principal); Z86.718 Personal history of other venous thrombosis and embolism
CPT/HCPCS: 36415; 85610

== ENCOUNTER 2017-01-27 10:57 | Emergency (ER) | payer BC ==
[2017-01-27 11:11] VITALS: TEMP 98.7
--- NOTE | 2017-01-27 11:41 | ED ---
General Adult HPI - General Chief complaint: Extremity Problem,Nontraumatic Stated complaint: poss bloodclot left arm Time Seen by Provider: 01/27/17 11:22 Source: patient, RN notes reviewed Mode of arrival: ambulatory Limitations: no limitations - History of Present Illness Initial comments: Patient 56-year-old female who presents emergency room today with chief complaint of some bruising to the posterior aspect of left elbow. States she noticed 2 days ago. Patient denies any other complaints or symptoms. Patient does admit that her INR was elevated few weeks ago she did suffer 2 days. She states she's been taking it daily since. She denies any other symptoms. Patient denies any recent fever, chills, shortness of breath, chest pain, back pain, abdominal pain, nausea or vomiting, numbness or tingling, dysuria or hematuria, constipation or diarrhea, headaches or visual changes, or any other complaints. - Related Data Home Medications Medication Instructions Recorded Confirmed Albuterol Sulfate [Proair Hfa] 2 puff INHALATION RT-Q4H PRN 04/11/14 01/27/17 Ascorbic Acid [Vitamin C] 500 mg PO AC-SUPPER 04/11/14 01/27/17 EPINEPHrine (Auto Inject) [Epipen] 0.3 mg IM ONCE PRN 04/11/14 01/27/17 Famotidine [Pepcid] 20 mg PO BID 04/11/14 01/27/17 Zinc 50 mg PO AC-SUPPER 04/11/14 01/27/17 Calcium Carbonate/Vitamin D3 1 tab PO AC-SUPPER 12/08/14 01/27/17 [Calcium 600-Vit D3 400 Tablet] Nystatin [Nystop] 1 applic TOPICAL BID PRN 12/08/14 01/27/17 Magnesium Oxide [Mag-Ox] 250 mg PO DAILY 12/18/14 01/27/17 Cholecalciferol [Vitamin D3] 5,000 unit PO AC-SUPPER 02/06/15 01/27/17 Furosemide [Lasix] 40 mg PO BID@0700,1500 04/22/15 01/27/17 Potassium Chloride [Klor-Con 20] 20 meq PO AC-SUPPER 04/22/15 01/27/17 Mometasone/Formoterol [Dulera 200 2 puff INHALATION RT-BID 09/12/15 01/27/17 Mcg/5 Mcg Inhaler] Warfarin [Coumadin] 5 mg PO [id number] 09/12/15 01/27/17 Cetirizine HCl [Zyrtec] 10 mg PO HS 12/21/15 01/27/17 Montelukast [Singulair] 10 mg PO HS 12/21/15 01/27/17 CHLORPHEN-HYDROcod 8-10mg/5ml 5 ml PO Q12H PRN 12/22/15 01/27/17 [Tussionex] L.acidoph,Paracasei, B.lactis 1 cap PO DAILY 03/03/16 01/27/17 [Probiotic] Levothyroxine Sodium [Synthroid] 50 mcg PO QAM 03/03/16 01/27/17 hydrOXYzine HCL [Atarax] 50 mg PO DAILY PRN 03/03/16 01/27/17 traMADol HCl [Ultram] 50 mg PO TID PRN 03/03/16 01/27/17 Florastor 1 cap PO BID 01/09/17 01/27/17 Hydrocodone/Acetaminophen [[place] 1 tab PO Q6HR PRN 01/09/17 01/27/17 5-325] L. Rhamnosus GG/Inulin [Culturelle 1 tab PO W/LUNCH 01/09/17 01/27/17 Chewable Tablet] Metoprolol Tartrate [Lopressor] 50 mg PO DAILY 01/09/17 01/27/17 Nystatin 100,000 Unit/ml Susp 5 ml PO QID PRN 01/09/17 01/27/17 [Mycostatin Oral Susp] Orphenadrine Citrate 100 mg PO BID PRN 01/09/17 01/27/17 Warfarin [Coumadin] 7.5 mg PO TH 01/27/17 01/27/17 Previous Rx's Medication Instructions Recorded Ipratropium-Albuterol Nebulize 3 ml INHALATION RT-QID ampul.neb 12/15/14 [Duoneb 0.5 mg-3 mg/3 ml Soln] ALPRAZolam [Xanax] 0.5 mg PO Q8H #90 tablet 05/11/15 Allergies Allergy/AdvReac Type Severity Reaction Status Date / Time Aminoglycosides Allergy Unknown Verified 01/27/17 11:29 honey Allergy Anaphylaxis Verified 01/27/17 11:29 moxifloxacin HCl Allergy Unknown Verified 01/27/17 11:29 [From Avelox] peanut Allergy Unknown Verified 01/27/17 11:29 azithromycin [From Zithromax] AdvReac Nausea & Verified 01/27/17 11:29 Vomiting & Diarrhea clindamycin AdvReac Dyspnea Verified 01/27/17 11:29 corn syrup AdvReac Nausea Verified 01/27/17 11:29 gluten AdvReac Nausea Verified 01/27/17 11:29 lactose AdvReac Nausea Verified 01/27/17 11:29 levofloxacin [From Levaquin] AdvReac Dyspnea Verified 01/27/17 11:29 neomycin [Neomycin] AdvReac Dyspnea Verified 01/27/17 11:29 omalizumab [From Xolair] AdvReac Dyspnea Verified 01/27/17 11:29 sulfamethoxazole AdvReac Diarrhea/co Verified 01/27/17 11:29 [From Bactrim] litis trimethoprim [From Bactrim] AdvReac Diarrhea/co Verified 01/27/17 11:29 litis Review of Systems ROS Statement: Those systems with pertinent positive or pertinent negative responses have been documented in the HPI. ROS Other: All systems not noted in ROS Statement are negative. Past Medical History Past Medical History: Asthma, Heart Failure, COPD, CVA/TIA, GERD/Reflux, Hypertension, Sleep Apnea/CPAP/BIPAP, Thyroid Disorder Additional Past Medical History / Comment(s): Uses CPAP. Recurrent bronchitis. Chronic TRACHEOBRONCHOMALCIA. CHF with systolic dysfunction and EF of 40-45%. TACHYCARDIA. SCOLIOSIS. vocal cord dysfunction. Syncopy with TIA.c-diff 04-22-15 colitis, difficulty swallowing large pills and needs meat chopped up History of Any Multi-Drug Resistant Organisms: C-DIFF Date of last positivie culture/infection: 04/22/15 MDRO Source:: stool Past Surgical History: Cholecystectomy, Heart Catheterization, Orthopedic Surgery, Tubal Ligation, Uterine Ablation Additional Past Surgical History / Comment(s): HEART CATH. BREAST BIOPSY-NEG. COLON POLYP - NEG. D&C. BILATERAL KNEE. NECK CYST. BOWEL RESECTION. VOCAL CORD. BRONCHOSCOPY 3-6-15 PER PT FOUND HERPES SIMPLES BLISTERS IN LUNGS. HAS HAD 15 BRONCHS.rt arm tendon sx Past Anesthesia/Blood Transfusion Reactions: Postoperative Nausea & Vomiting ( PONV) Additional Past Anesthesia/Blood Transfusion Reaction / Comment(s): Pt has never recieved blood. Past Psychological History: Anxiety Additional Psychological History / Comment(s): USES WALKER, CANE NEEDED. Smoking Status: Never smoker Past Alcohol Use History: None Reported Past Drug Use History: None Reported - Past Family History Father Family Medical History: Cancer, Congestive Heart Failure (CHF), CVA/TIA, Myocardial Infarction ([place]), Prostate Disorder Additional Family Medical History / Comment(s): at age 84- chocked on a hot dog Mother Family Medical History: Cancer, Osteoarthritis (OA) Additional Family Medical History / Comment(s): mom is 84 breast ca surviver. General Exam - General Exam Comments Initial Comments: General: The patient is awake and alert, in no distress, and does not appear acutely ill. Eye: Pupils are equal, round and reactive to light, extra-ocular movements are intact. No nystagmus. There is normal conjunctiva bilaterally. No signs of icterus. Ears, nose, mouth and throat: There are moist mucous membranes and no oral lesions. Neck: The neck is supple, there is no tenderness or JVD. Cardiovascular: There is a regular rate and rhythm. No murmur, rub or gallop is appreciated. Respiratory: Lungs are clear to auscultation, respirations are non-labored, breath sounds are equal. No wheezes, stridor, rales, or rhonchi. Musculoskeletal: Normal ROM, no tenderness. Strength 5/5. Sensation intact. Pulses equal bilaterally 2+. Neurological: A&O x 3. CN II-XII intact, There are no obvious motor or sensory deficits. Coordination appears grossly intact. Speech is normal. Skin: Skin is warm and dry and no rashes or lesions are noted. Bruising to the posterior aspect of the left elbow. Psychiatric: Cooperative, appropriate mood & affect, normal judgment. Limitations: no limitations Course Vital Signs 01/27/17 01/27/17 11:07 13:08 Temperature 98.7 F Pulse Rate 70 80 Respiratory 18 17 Rate Blood Pressure 136/67 135/71 O2 Sat by Pulse 96 98 Oximetry Medical Decision Making - Medical Decision Making Patient is also negative for any evidence of a DVT. INR 3.1. Patient will be discharged home. 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 Advised return for any other concerns. - Lab Data Lab Results 01/27/17 Range/Units 11:45 PT 30.2 H (9.0-12.0) sec INR 3.1 (<1.1) Disposition Clinical Impression: Contusion Disposition: HOME SELF-CARE Condition: Good Instructions: Contusion in Adults (ED) Additional Instructions: Please follow-up with family doctor with scheduled appointment in 2 days. Please return to emergency room if the symptoms increase or worsen or for any other concerns. Time of Disposition: 13:17
[2017-01-27 12:04] LABS: INR 3.1 (<1.1); Prothrombin Time 30.2 sec (9.0-12.0)
[2017-01-27 13:09] VITALS: BP 135/71; PULSE 80; RESP 17
--- NOTE | 2017-01-27 13:13 | US ---
EXAMINATION TYPE: US venous doppler duplex UE LT DATE OF EXAM: 01/27/2017 12:36 PM COMPARISON: NONE CLINICAL HISTORY: Pain. SIDE PERFORMED: Left Morbidly obese patient. Left Arm: Negative for DVT IMPRESSION: THIS EXAMINATION IS NEGATIVE FOR DVT IN THE LEFT ARM.
== END 2017-01-27 13:28 | disposition home or self-care (01) ==
LOC: EC 10:57
DX: S50.02XA Contusion of left elbow, initial encounter (principal); J45.909 Unspecified asthma, uncomplicated; J44.9 Chronic obstructive pulmonary disease, unspecified; I50.9 Heart failure, unspecified; K21.9 Gastro-esophageal reflux disease without esophagitis; I10 Essential (primary) hypertension; E07.9 Disorder of thyroid, unspecified; Z86.73 Personal history of transient ischemic attack (TIA), and cerebral infarction without residual deficits; Z79.01 Long term (current) use of anticoagulants; Z79.899 Other long term (current) drug therapy; Z88.1 Allergy status to other antibiotic agents; Z91.018 Allergy to other foods; Z91.010 Allergy to peanuts; Z88.2 Allergy status to sulfonamides; Z88.8 Allergy status to other drugs, medicaments and biological substances; X58.XXXA Exposure to other specified factors, initial encounter
CPT/HCPCS: 36415; 85610; 99284

== ENCOUNTER → 2017-01-31 | Outpatient (CLI) | payer BC ==
[2017-01-31 08:54] LABS: INR 2.5 (<1.1); Prothrombin Time 23.7 sec (9.0-12.0)
[2017-01-31 09:04] LABS: Anion Gap 7 mmol/L; Blood Urea Nitrogen 17 mg/dL (7-17); Calcium 8.8 mg/dL (8.4-10.2); Carbon Dioxide 33 mmol/L (22-30); Chloride 102 mmol/L (98-107); Glucose 94 mg/dL (74-99); Non-African American GFR(MDRD) 57 (>60 ml/min/1.73 sqM); Potassium 3.5 mmol/L (3.5-5.1); Sodium 142 mmol/L (137-145)
== END | disposition home or self-care (01) ==
LOC: LABWHC1 08:11
PROVIDERS: ATTEND Internal Medicine
DX: Z09 Encounter for follow-up examination after completed treatment for conditions other than malignant neoplasm (principal); Z86.718 Personal history of other venous thrombosis and embolism
CPT/HCPCS: 36415; 80048; 83605; 85610

== ENCOUNTER → 2017-03-08 | Outpatient (CLI) | payer BC ==
[2017-03-08 11:26] LABS: Basophils % (A) 1 %; CH 30.6; CHCM 33.2; Eosinophils # (A) 0.3 k/uL (0-0.7); Eosinophils % (A) 5 %; HCT 39.8 % (34.0-46.0); HDW 2.88; HGB 12.9 gm/dL (11.4-16.0); Luc # (Auto) 0.16; Luc % (Auto) 3; Lymphocytes # (A) 2.3 k/uL (1.0-4.8); Lymphocytes % (A) 41 %; MCH 30.2 pg (25.0-35.0); MCHC 32.5 g/dL (31.0-37.0); MCV 92.8 fL (80.0-100.0); Mean Platelet Volume 7.8; Monocytes # (A) 0.3 k/uL (0-1.0); Monocytes % (A) 6 %; Neutrophils # (A) 2.5 k/uL (1.3-7.7); Neutrophils % (A) 45 %; RBC 4.29 m/uL (3.80-5.40); RDW 14.1 % (11.5-15.5); WBC 5.6 k/uL (3.8-10.6); WBC (Perox) 6.03
[2017-03-08 11:32] LABS: ALT 50 U/L (9-52); AST 70 U/L (14-36); Alkaline Phosphatase 100 U/L (38-126); Anion Gap 10 mmol/L; Blood Urea Nitrogen 16 mg/dL (7-17); Calcium 8.9 mg/dL (8.4-10.2); Carbon Dioxide 29 mmol/L (22-30); Chloride 104 mmol/L (98-107); Cholesterol 137 mg/dL (<200); HDL Cholesterol 51 mg/dL (40-60); Non-African American GFR(MDRD) >60 (>60 ml/min/1.73 sqM); Potassium 3.7 mmol/L (3.5-5.1); Sodium 143 mmol/L (137-145); Triglycerides 126 mg/dL (<150)
[2017-03-08 11:35] LABS: INR 2.7 (<1.1)
[2017-03-08 11:56] LABS: Glucose 104 mg/dL (74-99); Total Protein 6.5 g/dL (6.3-8.2)
== END | disposition home or self-care (01) ==
LOC: LABWHC1 10:31
PROVIDERS: ATTEND Internal Medicine
DX: I10 Essential (primary) hypertension (principal); E78.2 Mixed hyperlipidemia; Z86.718 Personal history of other venous thrombosis and embolism
CPT/HCPCS: 36415; 80053; 80061; 85025; 85610

== ENCOUNTER → 2017-03-15 | Outpatient (CLI) | payer BC ==
[2017-03-15 20:44] LABS: Alternaria alternata IgE <0.10 kU/L; Aspergillus fumagatus IgE <0.10 kU/L; Cat Epith & Dander IgE <0.10 kU/L; Cladosporian herbarum IgE <0.10 kU/L; Clam IgE <0.10 kU/L; Dermato. farinae IgE <0.10 kU/L; Egg White IgE <0.10 kU/L; Maple (Box Elder) IgE <0.10 kU/L; Orchard Grs(Cocksfoot) IgE <0.10 kU/L; Peanut IgE <0.10 kU/L; Ragweed,Common IgE <0.10 kU/L; Scallop IgE <0.10 kU/L; Soybean IgE <0.10 kU/L
[2017-03-16 03:34] LABS: Immunoglobulin G 894 mg/dL (700 - 1600)
[2017-03-16 12:46] LABS: IgG Subclass 3 56.6 mg/dL (11.0-85.0); IgG Subclass 4 38.7 mg/dL (3.0-175.0)
== END | disposition home or self-care (01) ==
LOC: LABWHC1 12:13
PROVIDERS: ATTEND Internal Medicine Critical Care Medicine
DX: J45.50 Severe persistent asthma, uncomplicated (principal)
CPT/HCPCS: 36415; 82784; 82785; 82787; 86003

== ENCOUNTER → 2017-04-19 | Outpatient (CLI) | payer BC ==
[2017-04-19 10:56] LABS: Basophils % (A) 0 %; CH 29.2; CHCM 32.5; Eosinophils # (A) 0.1 k/uL (0-0.7); Eosinophils % (A) 2 %; HDW 2.63; HGB 13.2 gm/dL (11.4-16.0); Luc # (Auto) 0.15; Luc % (Auto) 2; Lymphocytes # (A) 3.3 k/uL (1.0-4.8); Lymphocytes % (A) 37 %; MCH 30.6 pg (25.0-35.0); MCHC 33.9 g/dL (31.0-37.0); MCV 90.5 fL (80.0-100.0); Mean Platelet Volume 7.1; Monocytes # (A) 0.4 k/uL (0-1.0); Monocytes % (A) 4 %; Neutrophils # (A) 4.8 k/uL (1.3-7.7); Neutrophils % (A) 55 %; RBC 4.31 m/uL (3.80-5.40); RDW 13.5 % (11.5-15.5); WBC 8.8 k/uL (3.8-10.6); WBC (Perox) 9.39
[2017-04-19 11:00] LABS: INR 2.6 (<1.1); Prothrombin Time 25.2 sec (9.0-12.0)
== END | disposition home or self-care (01) ==
LOC: LABWHC1 10:06
PROVIDERS: ATTEND Internal Medicine
DX: I10 Essential (primary) hypertension (principal); Z86.718 Personal history of other venous thrombosis and embolism
CPT/HCPCS: 36415; 85025; 85610

== ENCOUNTER → 2017-06-15 | Outpatient (CLI) | payer BC ==
[2017-06-15 10:57] LABS: INR 2.5 (<1.2); Prothrombin Time 23.9 sec (9.0-12.0)
[2017-06-15 11:15] LABS: Appearance,Urine Clear (Clear); Bilirubin,Urine Negative (Negative); Glucose,Urine (UA) Negative (Negative); Ketones,Urine Negative (Negative); Leukocyte Esterase,Urine Moderate (Negative); Mucus,Urine Rare /hpf; Nitrite,Urine Negative (Negative); Particle Count 2542; Protein,Urine Negative (Negative); RBC,Urine 2 /hpf (0-5); Specific Gravity,Urine 1.007 (1.001-1.035); Squamous Epithelial Cell,Urine 2 /hpf (0-4); UA Billing (MACRO vs. MICRO) MICRO; Urobilinogen,Urine <2.0 mg/dL (<2.0); WBC,Urine 6 /hpf (0-5)
== END | disposition home or self-care (01) ==
LOC: LABWHC1 10:17
PROVIDERS: ATTEND Internal Medicine
DX: N39.0 Urinary tract infection, site not specified (principal)
CPT/HCPCS: 36415; 81001; 85610; 87086

== ENCOUNTER 2017-06-22 10:28 | Inpatient (IN) | payer BC ==
[2017-06-22] MEDS ORDERED: ALBUTEROL NEBULIZED 2.5 MG/3 ML INHALATION STA (10:31)
[2017-06-22] MEDS ORDERED: LORazepam 2 MG/ML SYRINGE IV STA (10:31)
[2017-06-22] MEDS ORDERED: MORPHINE SULFATE 4 MG/ML SYRINGE IVP STA (10:31)
[2017-06-22] MEDS ORDERED: SODIUM CHLORIDE 0.9% 1,000 ML IV STA (10:31)
[2017-06-22] MEDS ORDERED: methylPREDNISolone SOD SUCCI 125 MG/2 ML VIAL IV STA (10:31)
[2017-06-22] MEDS ORDERED: IPRATROPIUM 0.5 MG/2.5 ML NEBU INHALATION STA (10:31)
[2017-06-22] MEDS ORDERED: ACETAMINOPHEN IV (For NPO) 1,000 MG in EMPTY BAG 1 BAG IVPB STA (10:41)
[2017-06-22 10:52] LABS: Glucose,Whole Blood 96 mg/dL (75-99)
[2017-06-22] MEDS ORDERED: ONDANSETRON 4 MG/2 ML VIAL IVP STA (11:00)
--- NOTE | 2017-06-22 11:09 | XR ---
EXAMINATION TYPE: XR chest 1V portable DATE OF EXAM: 06/22/2017 COMPARISON: Chest x-ray January 11, 2017. HISTORY: Extreme shortness of breath TECHNIQUE: Single AP portable frontal upright view of the chest is obtained. FINDINGS: There is poor inspiration with central vascular congestion. The cardiac silhouette size is mildly enlarged. No large pleural effusion or pneumothorax is seen bilaterally. Cholecystectomy clip s are noted. The osseous structures are intact. IMPRESSION: Poor inspiration with mild cardiomegaly and mild central vascular congestion, consider C HF exacerbation though findings may be exaggerated by poor inspiration.
[2017-06-22 11:14] LABS: Basophils % (A) 0 %; CHCM 33.8; Eosinophils # (A) 0.1 k/uL (0-0.7); Eosinophils % (A) 2 %; HCT 40.2 % (34.0-46.0); HDW 2.67; HGB 13.7 gm/dL (11.4-16.0); Luc # (Auto) 0.15; Luc % (Auto) 2; Lymphocytes # (A) 1.8 k/uL (1.0-4.8); Lymphocytes % (A) 26 %; MCH 29.4 pg (25.0-35.0); MCHC 34.1 g/dL (31.0-37.0); MCV 86.2 fL (80.0-100.0); Mean Platelet Volume 7.9; Monocytes # (A) 0.4 k/uL (0-1.0); Monocytes % (A) 7 %; Neutrophils # (A) 4.2 k/uL (1.3-7.7); Neutrophils % (A) 63 %; RBC 4.66 m/uL (3.80-5.40); WBC 6.7 k/uL (3.8-10.6); WBC (Perox) 6.67
--- NOTE | 2017-06-22 11:17 | ED ---
General Adult HPI - General Chief complaint: Shortness of Breath Stated complaint: JOSE MANUEL Time Seen by Provider: 06/22/17 10:30 Source: patient, RN notes reviewed, old records reviewed Mode of arrival: wheelchair Limitations: no limitations - History of Present Illness Initial comments: This is a 56-year-old female ER for reduction of significant shortness of breath. Patient's history of shortness of breath, patient also history of anxiety. Patient denies chest pain. Patient states she can't catch her breath increased coughing coughing the point of vomiting. Patient does have significant fever. No significant travel history no known sick contacts - Related Data Home Medications Medication Instructions Recorded Confirmed Albuterol Sulfate [Proair Hfa] 1 - 2 puff INHALATION RT-Q4H PRN 04/11/14 Ascorbic Acid [Vitamin C] 500 mg PO AC-SUPPER 04/11/14 06/22/17 EPINEPHrine (Auto Inject) [Epipen] 0.3 mg IM ONCE PRN 04/11/14 06/22/17 Famotidine [Pepcid] 20 mg PO BID 04/11/14 06/22/17 Zinc 50 mg PO AC-SUPPER 04/11/14 06/22/17 Calcium Carbonate/Vitamin D3 1 tab PO W/SUPPER 12/08/14 06/22/17 [Calcium 600-Vit D3 400 Tablet] Nystatin [Nystop] 1 applic TOPICAL Q12H PRN 12/08/14 06/22/17 Magnesium Oxide [Mag-Ox] 250 mg PO DAILY 12/18/14 06/22/17 Cholecalciferol [Vitamin D3] 5,000 unit PO AC-SUPPER 02/06/15 06/22/17 Furosemide [Lasix] 40 mg PO BID@0700,1500 04/22/15 06/22/17 Potassium Chloride [Klor-Con 20] 20 meq PO W/SUPPER 04/22/15 06/22/17 Mometasone/Formoterol [Dulera 200 2 puff INHALATION RT-BID 09/12/15 06/22/17 Mcg/5 Mcg Inhaler] Warfarin [Coumadin] 5 mg PO SUMOTUWEFRSA 09/12/15 06/22/17 Cetirizine HCl [Zyrtec] 10 mg PO DAILY 12/21/15 06/22/17 Montelukast [Singulair] 10 mg PO HS 12/21/15 06/22/17 CHLORPHEN-HYDROcod 8-10mg/5ml 5 ml PO Q12H PRN 12/22/15 06/22/17 [Tussionex] Levothyroxine Sodium [Synthroid] 50 mcg PO DAILY 03/03/16 06/22/17 hydrOXYzine HCL [Atarax] 50 mg PO Q6H PRN 03/03/16 06/22/17 traMADol HCl [Ultram] 50 mg PO TID PRN 03/03/16 06/22/17 Hydrocodone/Acetaminophen [[place] 1 tab PO Q6HR PRN 01/09/17 06/22/17 5-325] Metoprolol Tartrate [Lopressor] 75 mg PO BID 01/09/17 06/22/17 Nystatin 100,000 Unit/ml Susp 5 ml PO QID PRN 01/09/17 06/22/17 [Mycostatin Oral Susp] Orphenadrine Citrate 100 mg PO BID PRN 01/09/17 06/22/17 Warfarin [Coumadin] 7.5 mg PO TH 01/27/17 06/22/17 Culturelle Probiotic 1 tab PO W/LUNCH 06/22/17 06/22/17 Florastor Probiotic 1 tab PO BID 06/22/17 06/22/17 Losartan Potassium [Cozaar] 50 mg PO DIRECTED 06/22/17 06/22/17 Previous Rx's Medication Instructions Recorded Ipratropium-Albuterol Nebulize 3 ml INHALATION RT-QID ampul.neb 12/15/14 [Duoneb 0.5 mg-3 mg/3 ml Soln] ALPRAZolam [Xanax] 0.5 mg PO Q8H #90 tablet 05/11/15 Allergies Allergy/AdvReac Type Severity Reaction Status Date / Time Aminoglycosides Allergy Unknown Verified 06/22/17 10:37 honey Allergy Anaphylaxis Verified 06/22/17 10:37 moxifloxacin HCl Allergy Unknown Verified 06/22/17 10:37 [From Avelox] peanut Allergy Unknown Verified 06/22/17 10:37 azithromycin [From Zithromax] AdvReac Nausea & Verified 06/22/17 10:37 Vomiting & Diarrhea clindamycin AdvReac Dyspnea Verified 06/22/17 10:37 corn syrup AdvReac Nausea Verified 06/22/17 10:37 gluten AdvReac Nausea Verified 06/22/17 10:37 lactose AdvReac Nausea Verified 06/22/17 10:37 levofloxacin [From Levaquin] AdvReac Dyspnea Verified 06/22/17 10:37 neomycin [Neomycin] AdvReac Dyspnea Verified 06/22/17 10:37 omalizumab [From Xolair] AdvReac Dyspnea Verified 06/22/17 10:37 sulfamethoxazole AdvReac Diarrhea/co Verified 06/22/17 10:37 [From Bactrim] litis trimethoprim [From Bactrim] AdvReac Diarrhea/co Verified 06/22/17 10:37 litis Review of Systems ROS Statement: Those systems with pertinent positive or pertinent negative responses have been documented in the HPI. ROS Other: All systems not noted in ROS Statement are negative. Past Medical History Past Medical History: Asthma, Heart Failure, COPD, CVA/TIA, GERD/Reflux, Hypertension, Sleep Apnea/CPAP/BIPAP, Thyroid Disorder Additional Past Medical History / Comment(s): Uses CPAP. Recurrent bronchitis. Chronic TRACHEOBRONCHOMALCIA. CHF with systolic dysfunction and EF of 40-45%. TACHYCARDIA. SCOLIOSIS. vocal cord dysfunction. Syncopy with TIA.c-diff 04-22-15 colitis, difficulty swallowing large pills and needs meat chopped up History of Any Multi-Drug Resistant Organisms: C-DIFF Date of last positivie culture/infection: 04/22/15 MDRO Source:: stool Past Surgical History: Cholecystectomy, Heart Catheterization, Orthopedic Surgery, Tubal Ligation, Uterine Ablation Additional Past Surgical History / Comment(s): HEART CATH. BREAST BIOPSY-NEG. COLON POLYP - NEG. D&C. BILATERAL KNEE. NECK CYST. BOWEL RESECTION. VOCAL CORD. BRONCHOSCOPY 3-6-15 PER PT FOUND HERPES SIMPLES BLISTERS IN LUNGS. HAS HAD 15 BRONCHS.rt arm tendon sx Past Anesthesia/Blood Transfusion Reactions: Postoperative Nausea & Vomiting ( PONV) Additional Past Anesthesia/Blood Transfusion Reaction / Comment(s): Pt has never recieved blood. Past Psychological History: Anxiety Smoking Status: Never smoker Past Alcohol Use History: None Reported Past Drug Use History: None Reported - Past Family History Father Family Medical History: Cancer, Congestive Heart Failure (CHF), CVA/TIA, Myocardial Infarction ([place]), Prostate Disorder Additional Family Medical History / Comment(s): at age 84- chocked on a hot dog Mother Family Medical History: Cancer, Osteoarthritis (OA) Additional Family Medical History / Comment(s): mom is 84 breast ca surviver. General Exam Limitations: no limitations General appearance: alert, in no apparent distress, anxious Head exam: Present: atraumatic, normocephalic, normal inspection Eye exam: Present: normal appearance, PERRL, EOMI. Absent: scleral icterus, conjunctival injection, periorbital swelling ENT exam: Present: normal exam, mucous membranes moist Neck exam: Present: normal inspection. Absent: tenderness, meningismus, lymphadenopathy Respiratory exam: Present: normal lung sounds bilaterally, wheezes, accessory muscle use, decreased breath sounds, prolonged expiratory. Absent: respiratory distress, rales, rhonchi, stridor Cardiovascular Exam: Present: regular rate, normal rhythm, normal heart sounds. Absent: systolic murmur, diastolic murmur, rubs, gallop, clicks GI/Abdominal exam: Present: soft, normal bowel sounds. Absent: distended, tenderness, guarding, rebound, rigid Extremities exam: Present: normal inspection, full ROM, normal capillary refill. Absent: tenderness, pedal edema, joint swelling, calf tenderness Back exam: Present: normal inspection Neurological exam: Present: alert, oriented X3, CN II-XII intact Psychiatric exam: Present: normal affect, normal mood Skin exam: Present: warm, dry, intact, normal color. Absent: rash Course Vital Signs 06/22/17 06/22/17 06/22/17 10:32 10:42 10:43 Temperature 101.9 F H 101.9 F H Pulse Rate 95 91 93 Respiratory 30 H 26 H Rate Blood Pressure 159/76 140/64 O2 Sat by Pulse 96 98 Oximetry 06/22/17 06/22/17 10:57 11:43 Temperature 100.2 F H Pulse Rate 100 99 Respiratory 24 Rate Blood Pressure 147/74 O2 Sat by Pulse 100 Oximetry - Reevaluation(s) Reevaluation #1: 06/22/17 12:08 Patient has renal no improvement in breathing at this point. EKG Findings - EKG Comments: EKG Findings:: EKG shows normal sinus rhythm rate of 93, MI 150, QRS 90, QTc 462 Medical Decision Making - Medical Decision Making 52 for female here with fever, difficulty breathing, shortness of breath, history of COPD, will admit for breathing treatments and fever control - Lab Data Result diagrams: 06/22/17 10:45 06/22/17 10:45 Lab Results 06/22/17 06/22/17 06/22/17 Range/Units 10:45 10:45 10:45 WBC 6.7 (3.8-10.6) k/uL RBC 4.66 (3.80-5.40) m/uL Hgb 13.7 (11.4-16.0) gm/dL Hct 40.2 (34.0-46.0) % MCV 86.2 (80.0-100.0) fL MCH 29.4 (25.0-35.0) pg MCHC 34.1 (31.0-37.0) g/dL RDW 14.0 (11.5-15.5) % Plt Count 242 (150-450) k/uL Neutrophils % 63 % Lymphocytes % 26 % Monocytes % 7 % Eosinophils % 2 % Basophils % 0 % Neutrophils # 4.2 (1.3-7.7) k/uL Lymphocytes # 1.8 (1.0-4.8) k/uL Monocytes # 0.4 (0-1.0) k/uL Eosinophils # 0.1 (0-0.7) k/uL Basophils # 0.0 (0-0.2) k/uL PT (9.0-12.0) sec INR (<1.2) APTT (22.0-30.0) sec Sodium 141 (137-145) mmol/L Potassium 4.2 (3.5-5.1) mmol/L Chloride 103 (98-107) mmol/L Carbon Dioxide 25 (22-30) mmol/L Anion Gap 13 mmol/L BUN 13 (7-17) mg/dL Creatinine 1.03 (0.52-1.04) mg/dL Est GFR (MDRD) Af Amer >60 (>60 ml/min/1.73 sqM) Est GFR (MDRD) Non-Af 56 (>60 ml/min/1.73 sqM) Glucose 93 (74-99) mg/dL POC Glucose (mg/dL) (75-99) mg/dL POC Glu Financial Sales Associate ID Calcium 9.2 (8.4-10.2) mg/dL Magnesium 1.9 (1.6-2.3) mg/dL Total Bilirubin 1.0 (0.2-1.3) mg/dL AST 46 H (14-36) U/L ALT 43 (9-52) U/L Alkaline Phosphatase 111 (38-126) U/L Total Creatine Kinase 61 (30-135) U/L CK-MB (CK-2) 0.3 (0.0-2.4) ng/mL CK-MB (CK-2) Rel Index 0.5 Troponin I <0.012 (0.000-0.034) ng/mL NT-Pro-B Natriuret Pep pg/mL Total Protein 7.8 (6.3-8.2) g/dL Albumin 4.5 (3.5-5.0) g/dL 06/22/17 06/22/17 06/22/17 Range/Units 10:45 10:45 10:50 WBC (3.8-10.6) k/uL RBC (3.80-5.40) m/uL Hgb (11.4-16.0) gm/dL Hct (34.0-46.0) % MCV (80.0-100.0) fL MCH (25.0-35.0) pg MCHC (31.0-37.0) g/dL RDW (11.5-15.5) % Plt Count (150-450) k/uL Neutrophils % % Lymphocytes % % Monocytes % % Eosinophils % % Basophils % % Neutrophils # (1.3-7.7) k/uL Lymphocytes # (1.0-4.8) k/uL Monocytes # (0-1.0) k/uL Eosinophils # (0-0.7) k/uL Basophils # (0-0.2) k/uL PT 22.8 H (9.0-12.0) sec INR 2.4 H (<1.2) APTT 32.1 H (22.0-30.0) sec Sodium (137-145) mmol/L Potassium (3.5-5.1) mmol/L Chloride (98-107) mmol/L Carbon Dioxide (22-30) mmol/L Anion Gap mmol/L BUN (7-17) mg/dL Creatinine (0.52-1.04) mg/dL Est GFR (MDRD) Af Amer (>60 ml/min/1.73 sqM) Est GFR (MDRD) Non-Af (>60 ml/min/1.73 sqM) Glucose (74-99) mg/dL POC Glucose (mg/dL) 96 (75-99) mg/dL POC Glu Financial Sales Associate ID [place] Tri Calcium (8.4-10.2) mg/dL Magnesium (1.6-2.3) mg/dL Total Bilirubin (0.2-1.3) mg/dL AST (14-36) U/L ALT (9-52) U/L Alkaline Phosphatase (38-126) U/L Total Creatine Kinase (30-135) U/L CK-MB (CK-2) (0.0-2.4) ng/mL CK-MB (CK-2) Rel Index Troponin I (0.000-0.034) ng/mL NT-Pro-B Natriuret Pep 75 pg/mL Total Protein (6.3-8.2) g/dL Albumin (3.5-5.0) g/dL - Radiology Data Radiology results: report reviewed (Chest x-ray negative for acute disease), image reviewed Disposition Clinical Impression: Acute bronchitis, Acute exacerbation of chronic obstructive pulmonary disease ( COPD), Acute exacerbation of chronic obstructive airways disease, Bronchospasm Disposition: ADMITTED IP TO THIS HOSP Referrals: Nadeen Feng MD [STAFF PHYSICIAN] - 1-2 days
[2017-06-22 11:21] LABS: ALT 43 U/L (9-52); AST 46 U/L (14-36); Alkaline Phosphatase 111 U/L (38-126); Anion Gap 13 mmol/L; Blood Urea Nitrogen 13 mg/dL (7-17); Calcium 9.2 mg/dL (8.4-10.2); Carbon Dioxide 25 mmol/L (22-30); Chloride 103 mmol/L (98-107); Glucose 93 mg/dL (74-99); Magnesium 1.9 mg/dL (1.6-2.3); Non-African American GFR(MDRD) 56 (>60 ml/min/1.73 sqM); Potassium 4.2 mmol/L (3.5-5.1); Sodium 141 mmol/L (137-145); Total Protein 7.8 g/dL (6.3-8.2)
[2017-06-22 11:23] LABS: Partial Thromboplastin Time 32.1 sec (22.0-30.0)
[2017-06-22 11:27] LABS: INR 2.4 (<1.2); Prothrombin Time 22.8 sec (9.0-12.0)
[2017-06-22 11:39] LABS: Creatine Kinase 61 U/L (30-135)
[2017-06-22 11:53] LABS: Creatine Kinase MB 0.3 ng/mL (0.0-2.4); Troponin I <0.012 ng/mL (0.000-0.034)
[2017-06-22] MEDS ORDERED: ACET/COD 240MG/24MG LIQ 10 ML SYRG PO PRN (12:10)
[2017-06-22] MEDS ORDERED: IBUPROFEN ORAL SUSP 100 MG/5 ML CUP PO PRN (12:10)
[2017-06-22] MEDS: SODIUM CHLORIDE 0.9% 1,000 ML IV SCH (13:23)
[2017-06-22] MEDS ORDERED: IPRATROPIUM-ALBUTEROL 3 ML NEB INHALATION PRN (13:57)
[2017-06-22] MEDS ORDERED: hydrOXYzine HCL 25 MG TAB PO PRN (14:00)
[2017-06-22] MEDS ORDERED: traMADol 50 MG TAB PO PRN (14:00)
[2017-06-22] MEDS ORDERED: LOSARTAN 50 MG TAB PO SCH (14:00)
[2017-06-22] MEDS: DOXYCYCLINE 50 MG CAP PO SCH ×2 (15:25→21:59)
[2017-06-22] MEDS: FUROSEMIDE 40 MG TAB PO SCH (15:25)
[2017-06-22] MEDS: ALPRAZolam 0.5 MG TAB PO SCH ×2 (15:25→21:59)
[2017-06-22] MEDS: IPRATROPIUM-ALBUTEROL 3 ML NEB INHALATION SCH ×2 (15:57→20:27)
--- NOTE | 2017-06-22 16:01 | P.CNPUL ---
History of Present Illness Consult date: 06/22/17 Requesting physician: Russell Hinson Reason for consult: asthma Chief complaint: Shortness of breath, cough, and wheezing. History of present illness: This is a 56-year-old female, quite familiar to our service, patient is known to have severe persistent asthma, vocal cord dysfunction, tracheobronchomalacia , chronic atrial fibrillation, obstructive sleep apnea syndrome, chronic systolic dysfunction, ejection fraction about 40%, generalized anxiety disorder , used to be frequently inpatient for recurrent episodes of asthma exacerbation on cough, however her last admission was back in December of 2016. Patient has been doing relatively well, she is not prednisone dependent, but she is on multiple bronchodilators for her underlying severe persistent asthma. Patient presented to the ER with a few days' history of cough, wheezing, shortness of breath, and low-grade fever. Chest x-ray was noted to be relatively unremarkable except for poor inspiratory effort, but no evidence of congestive heart failure, and no evidence of pneumonia. Patient describes being under a lot of stress recently especially since she was made aware that she has a granddaughter with stage IV neuroblastoma. In the ER she had a teeth max of 100.6, she had a relatively normal CBC, normal basic metabolic profile, therapeutic INR, patient was admitted and this consult was initiated. She was already placed on bronchodilators, steroids, and I went ahead and added doxycycline and kept her on the usual bronchodilators and steroids. Review of Systems Constitutional: Low-grade fever, no weight loss, vague aches and pains. HEENT: History of vocal cord dysfunction. And history of chronic hoarseness. Pulmonary: As noted in history of the present illness. Cardiac: History of atrial fibrillation and congestive heart failure, chronic systolic dysfunction. GI: No nausea vomiting abdominal pain melena or hematemesis. Genitourinary: No dysuria frequency or urgency. Hematologic: No history of clotting bleeding or bruising, patient is maintained on Coumadin for chronic atrial fibrillation. Psychiatric: No symptoms of active depression, but she does have history of generalized anxiety disorder. Neurologic: No headaches or blurred vision or dizziness. Past Medical History Past Medical History: Asthma, Heart Failure, COPD, CVA/TIA, GERD/Reflux, Hypertension, Sleep Apnea/CPAP/BIPAP, Thyroid Disorder Additional Past Medical History / Comment(s): Uses CPAP. Recurrent bronchitis. Chronic TRACHEOBRONCHOMALCIA. CHF with systolic dysfunction and EF of 40-45%. TACHYCARDIA. SCOLIOSIS. vocal cord dysfunction. Syncopy with TIA.c-diff 04-22-15 colitis, difficulty swallowing large pills and needs meat chopped up History of Any Multi-Drug Resistant Organisms: C-DIFF Date of last positivie culture/infection: 04/22/15 MDRO Source:: stool Past Surgical History: Cholecystectomy, Heart Catheterization, Orthopedic Surgery, Tubal Ligation, Uterine Ablation Additional Past Surgical History / Comment(s): HEART CATH. BREAST BIOPSY-NEG. COLON POLYP - NEG. D&C. BILATERAL KNEE. NECK CYST. BOWEL RESECTION. VOCAL CORD. BRONCHOSCOPY 15 PER PT FOUND HERPES SIMPLES BLISTERS IN LUNGS. HAS HAD 15 BRONCHS.rt arm tendon sx Past Anesthesia/Blood Transfusion Reactions: Postoperative Nausea & Vomiting ( PONV) Additional Past Anesthesia/Blood Transfusion Reaction / Comment(s): Pt has never recieved blood. Past Psychological History: Anxiety Additional Psychological History / Comment(s): USES WALKER, CANE NEEDED. Smoking Status: Never smoker Past Alcohol Use History: None Reported Past Drug Use History: None Reported - Past Family History Father Family Medical History: Cancer, Congestive Heart Failure (CHF), CVA/TIA, Myocardial Infarction ([place]), Prostate Disorder Additional Family Medical History / Comment(s): at age 84- chocked on a hot dog Mother Family Medical History: Cancer, Osteoarthritis (OA) Additional Family Medical History / Comment(s): mom is 84 breast ca surviver. Medications and Allergies Home Medications Medication Instructions Recorded Confirmed Type Albuterol Sulfate [Proair Hfa] 1 - 2 puff INHALATION RT-Q4H PRN 04/11/14 History Ascorbic Acid [Vitamin C] 500 mg PO AC-SUPPER 04/11/14 06/22/17 History EPINEPHrine (Auto Inject) [Epipen] 0.3 mg IM ONCE PRN 04/11/14 06/22/17 History Famotidine [Pepcid] 20 mg PO BID 04/11/14 06/22/17 History Zinc 50 mg PO AC-SUPPER 04/11/14 06/22/17 History Calcium Carbonate/Vitamin D3 1 tab PO W/SUPPER 12/08/14 06/22/17 History [Calcium 600-Vit D3 400 Tablet] Nystatin [Nystop] 1 applic TOPICAL Q12H PRN 12/08/14 06/22/17 History Ipratropium-Albuterol Nebulize 3 ml INHALATION RT-QID ampul.neb 12/15/14 Rx [Duoneb 0.5 mg-3 mg/3 ml Soln] Magnesium Oxide [Mag-Ox] 250 mg PO DAILY 12/18/14 06/22/17 History Cholecalciferol [Vitamin D3] 5,000 unit PO AC-SUPPER 02/06/15 06/22/17 History Furosemide [Lasix] 40 mg PO BID@0700,1500 04/22/15 06/22/17 History Potassium Chloride [Klor-Con 20] 20 meq PO W/SUPPER 04/22/15 06/22/17 History ALPRAZolam [Xanax] 0.5 mg PO Q8H #90 tablet 05/11/15 06/22/17 Rx Mometasone/Formoterol [Dulera 200 2 puff INHALATION RT-BID 09/12/15 06/22/17 History Mcg/5 Mcg Inhaler] Warfarin [Coumadin] 5 mg PO SUMOTUWEFRSA 09/12/15 06/22/17 History Cetirizine HCl [Zyrtec] 10 mg PO DAILY 12/21/15 06/22/17 History Montelukast [Singulair] 10 mg PO HS 12/21/15 06/22/17 History CHLORPHEN-HYDROcod 8-10mg/5ml 5 ml PO Q12H PRN 12/22/15 06/22/17 History [Tussionex] Levothyroxine Sodium [Synthroid] 50 mcg PO DAILY 03/03/16 06/22/17 History hydrOXYzine HCL [Atarax] 50 mg PO Q6H PRN 03/03/16 06/22/17 History traMADol HCl [Ultram] 50 mg PO TID PRN 03/03/16 06/22/17 History Hydrocodone/Acetaminophen [[place] 1 tab PO Q6HR PRN 01/09/17 06/22/17 History 5-325] Metoprolol Tartrate [Lopressor] 75 mg PO BID 01/09/17 06/22/17 History Nystatin 100,000 Unit/ml Susp 5 ml PO QID PRN 01/09/17 06/22/17 History [Mycostatin Oral Susp] Orphenadrine Citrate 100 mg PO BID PRN 01/09/17 06/22/17 History Warfarin [Coumadin] 7.5 mg PO TH 01/27/17 06/22/17 History Culturelle Probiotic 1 tab PO W/LUNCH 06/22/17 06/22/17 History Florastor Probiotic 1 tab PO BID 06/22/17 06/22/17 History Losartan Potassium [Cozaar] 50 mg PO DIRECTED 06/22/17 06/22/17 History Allergies Allergy/AdvReac Type Severity Reaction Status Date / Time Aminoglycosides Allergy Unknown Verified 06/22/17 10:37 honey Allergy Anaphylaxis Verified 06/22/17 10:37 moxifloxacin HCl Allergy Unknown Verified 06/22/17 10:37 [From Avelox] peanut Allergy Unknown Verified 06/22/17 10:37 azithromycin [From Zithromax] AdvReac Nausea & Verified 06/22/17 10:37 Vomiting & Diarrhea clindamycin AdvReac Dyspnea Verified 06/22/17 10:37 corn syrup AdvReac Nausea Verified 06/22/17 10:37 lactose AdvReac Nausea Verified 06/22/17 10:37 levofloxacin [From Levaquin] AdvReac Dyspnea Verified 06/22/17 10:37 neomycin [Neomycin] AdvReac Dyspnea Verified 06/22/17 10:37 omalizumab [From Xolair] AdvReac Dyspnea Verified 06/22/17 10:37 sulfamethoxazole AdvReac Diarrhea/co Verified 06/22/17 10:37 [From Bactrim] litis trimethoprim [From Bactrim] AdvReac Diarrhea/co Verified 06/22/17 10:37 litis Physical Exam Vitals: Vital Signs Temp Pulse Pulse Resp BP BP Pulse Ox 06/22/17 14:40 99.5 F 89 18 103/51 94 L 06/22/17 13:10 97.8 F 93 18 117/67 06/22/17 12:45 100.4 F H 92 15 100/54 98 06/22/17 12:22 100.6 F H 92 15 112/59 98 06/22/17 11:43 99 06/22/17 10:57 100.2 F H 100 24 147/74 100 06/22/17 10:43 101.9 F H 93 26 H 140/64 98 06/22/17 10:42 91 06/22/17 10:32 101.9 F H 95 30 H 159/76 96 Intake and Output 06/22/17 06/22/17 06/22/17 06:59 14:59 22:59 Other: # Voids 2 Weight 44.9 kg Patient Weight 06/23/17 06:59 Weight 44.9 kg Physical Exam: Revealed a 56-year-old female in no distress, HEENT:[Neck is supple.] [No neck masses.] [No thyromegaly.] [No JVD.] Chest: [Wheezing bilaterally, more so on forced expiratory maneuver..] Cardiac Exam: [Irregular irregular rhythm, Normal S1 and S2, no S3 gallop, no murmur.] Abdomen: [Soft, nontender, no megaly, no rebound, no guarding, normal bowel sounds.] Extremities: [No clubbing, trace of bipedal edema, no cyanosis.] Neurological Exam: [No focal neurologic deficit.] Results - Laboratory Findings CBC and BMP: 06/22/17 10:45 06/22/17 10:45 PT/INR, D-dimer PT 22.8 sec (9.0-12.0) H 06/22/17 10:45 INR 2.4 (<1.2) H 06/22/17 10:45 Abnormal lab findings: Abnormal Labs 06/22/17 06/22/17 10:45 10:45 PT 22.8 H INR 2.4 H APTT 32.1 H AST 46 H - Diagnostic Findings Chest x-ray: image reviewed (No evidence of congestive heart failure, poor inspiratory effort noted, no evidence of pneumonia.) Assessment and Plan Plan: Impression: 1 Acute exacerbation of bronchial asthma and purulent tracheobronchitis. 2 history of multiple comorbidities including vocal cord dysfunction, congestive heart failure, obstructive sleep apnea syndrome, C. difficile colitis , GERD without esophagitis, tracheobronchomalacia, LV dysfunction, chronic atrial fibrillation, history of deep vein thrombosis, generalized anxiety disorder. Recommendation: I agree with the present course of treatment including her course of bronchodilators, steroids, I added doxycycline (patient has multiple ALLERGIES to different antibiotics.) We'll continue to follow, consider discharge planning in the next 24-48 hours. Time with Patient: Greater than 30
[2017-06-22 17:01] LABS: Glucose,Whole Blood 244 mg/dL (75-99)
[2017-06-22] MEDS: ASCORBIC ACID 500 MG TAB PO SCH (17:31)
[2017-06-22] MEDS: CALCIUM CARB-VIT D 500MG-200UN 1 EACH TAB PO SCH (17:31)
[2017-06-22] MEDS: CHOLECALCIFEROL 1,000 UNIT TAB PO SCH (17:31)
[2017-06-22] MEDS: POTASSIUM CHLORIDE ER 20 MEQ TAB.ER PO SCH (17:32)
[2017-06-22] MEDS: methylPREDNISolone SOD SUCCI 125 MG/2 ML VIAL IV SCH (17:32)
[2017-06-22 17:49] LABS: Appearance,Urine Clear (Clear); Bilirubin,Urine Negative (Negative); Glucose,Urine (UA) Negative (Negative); Ketones,Urine Negative (Negative); Leukocyte Esterase,Urine Negative (Negative); Nitrite,Urine Negative (Negative); Protein,Urine Negative (Negative); Specific Gravity,Urine 1.008 (1.001-1.035); UA Billing (MACRO vs. MICRO) CHEM; Urobilinogen,Urine <2.0 mg/dL (<2.0)
[2017-06-22] MEDS ORDERED: WARFARIN 7.5 MG TAB PO SCH (18:00)
--- NOTE | 2017-06-22 18:33 | P.HPIM ---
History of Present Illness H&P Date: 06/22/17 Chief Complaint: Cough and shortness of breath The patient is a 56-year-old morbidly obese female with approximately history of asthma COPD tracheobronchomalacia who presented to the ER with chief complaint of shortness of breath and productive cough along with fevers and chills, patient reports that her symptoms began worsening 2 weeks ago, she reports a chronic cough and chronic wheezes but that it is worse today, she reports a fever of 100.1 last night, she reports having a sick contact being her granddaughter also runny nose who is currently receiving chemotherapy for neuroblastoma. She reports increasing fatigue and exertional dyspnea, she denies any chest pain or lower extremity swelling. Complains of increasing intolerance to ambulation, at baseline she uses a cane and a Rollator. She reports apparently having a appointment today to see her child protective services specialist, but was quickly referred here to the ED after speaking to the nurse of the clinic. In the ER she had a breathing treatment was started on steroids, she was also afebrile without a white count. Review of Systems 14 point ROS systems negative except per HPI Past Medical History Past Medical History: Asthma, Heart Failure, COPD, CVA/TIA, GERD/Reflux, Hypertension, Sleep Apnea/CPAP/BIPAP, Thyroid Disorder Additional Past Medical History / Comment(s): Uses CPAP. Recurrent bronchitis. Chronic TRACHEOBRONCHOMALCIA. CHF with systolic dysfunction and EF of 40-45%. TACHYCARDIA. SCOLIOSIS. vocal cord dysfunction. Syncopy with TIA.c-diff 04-22-15 colitis, difficulty swallowing large pills and needs meat chopped up History of Any Multi-Drug Resistant Organisms: C-DIFF Date of last positivie culture/infection: 04/22/15 MDRO Source:: stool Past Surgical History: Cholecystectomy, Heart Catheterization, Orthopedic Surgery, Tubal Ligation, Uterine Ablation Additional Past Surgical History / Comment(s): HEART CATH. BREAST BIOPSY-NEG. COLON POLYP - NEG. D&C. BILATERAL KNEE. NECK CYST. BOWEL RESECTION. VOCAL CORD. BRONCHOSCOPY 12-19-14 PER PT FOUND HERPES SIMPLES BLISTERS IN LUNGS. HAS HAD 15 BRONCHS.rt arm tendon sx Past Anesthesia/Blood Transfusion Reactions: Postoperative Nausea & Vomiting ( PONV) Additional Past Anesthesia/Blood Transfusion Reaction / Comment(s): Pt has never recieved blood. Past Psychological History: Anxiety Additional Psychological History / Comment(s): USES WALKER, CANE NEEDED. Smoking Status: Never smoker Past Alcohol Use History: None Reported Past Drug Use History: None Reported - Past Family History Father Family Medical History: Cancer, Congestive Heart Failure (CHF), CVA/TIA, Myocardial Infarction (MT), Prostate Disorder Additional Family Medical History / Comment(s): at age 84- chocked on a hot dog Mother Family Medical History: Cancer, Osteoarthritis (OA) Additional Family Medical History / Comment(s): mom is 84 breast ca surviver. Medications and Allergies Home Medications Medication Instructions Recorded Confirmed Type Albuterol Sulfate [Proair Hfa] 1 - 2 puff INHALATION RT-Q4H PRN 04/11/14 History Ascorbic Acid [Vitamin C] 500 mg PO AC-SUPPER 04/11/14 06/22/17 History EPINEPHrine (Auto Inject) [Epipen] 0.3 mg IM ONCE PRN 04/11/14 06/22/17 History Famotidine [Pepcid] 20 mg PO BID 04/11/14 06/22/17 History Zinc 50 mg PO AC-SUPPER 04/11/14 06/22/17 History Calcium Carbonate/Vitamin D3 1 tab PO W/SUPPER 12/08/14 06/22/17 History [Calcium 600-Vit D3 400 Tablet] Nystatin [Nystop] 1 applic TOPICAL Q12H PRN 12/08/14 06/22/17 History Ipratropium-Albuterol Nebulize 3 ml INHALATION RT-QID ampul.neb 12/15/14 Rx [Duoneb 0.5 mg-3 mg/3 ml Soln] Magnesium Oxide [Mag-Ox] 250 mg PO DAILY 12/18/14 06/22/17 History Cholecalciferol [Vitamin D3] 5,000 unit PO AC-SUPPER 02/06/15 06/22/17 History Furosemide [Lasix] 40 mg PO BID@0700,1500 04/22/15 06/22/17 History Potassium Chloride [Klor-Con 20] 20 meq PO W/SUPPER 04/22/15 06/22/17 History ALPRAZolam [Xanax] 0.5 mg PO Q8H #90 tablet 05/11/15 06/22/17 Rx Mometasone/Formoterol [Dulera 200 2 puff INHALATION RT-BID 09/12/15 06/22/17 History Mcg/5 Mcg Inhaler] Warfarin [Coumadin] 5 mg PO SUMOTUWEFRSA 09/12/15 06/22/17 History Cetirizine HCl [Zyrtec] 10 mg PO DAILY 12/21/15 06/22/17 History Montelukast [Singulair] 10 mg PO HS 12/21/15 06/22/17 History CHLORPHEN-HYDROcod 8-10mg/5ml 5 ml PO Q12H PRN 12/22/15 06/22/17 History [Tussionex] Levothyroxine Sodium [Synthroid] 50 mcg PO DAILY 03/03/16 06/22/17 History hydrOXYzine HCL [Atarax] 50 mg PO Q6H PRN 03/03/16 06/22/17 History traMADol HCl [Ultram] 50 mg PO TID PRN 03/03/16 06/22/17 History Hydrocodone/Acetaminophen [Langtry 1 tab PO Q6HR PRN 01/09/17 06/22/17 History 5-325] Metoprolol Tartrate [Lopressor] 75 mg PO BID 01/09/17 06/22/17 History Nystatin 100,000 Unit/ml Susp 5 ml PO QID PRN 01/09/17 06/22/17 History [Mycostatin Oral Susp] Orphenadrine Citrate 100 mg PO BID PRN 01/09/17 06/22/17 History Warfarin [Coumadin] 7.5 mg PO TH 01/27/17 06/22/17 History Culturelle Probiotic 1 tab PO W/LUNCH 06/22/17 06/22/17 History Florastor Probiotic 1 tab PO BID 06/22/17 06/22/17 History Losartan Potassium [Cozaar] 50 mg PO DIRECTED 06/22/17 06/22/17 History Allergies Allergy/AdvReac Type Severity Reaction Status Date / Time Aminoglycosides Allergy Unknown Verified 06/22/17 10:37 honey Allergy Anaphylaxis Verified 06/22/17 10:37 moxifloxacin HCl Allergy Unknown Verified 06/22/17 10:37 [From Avelox] peanut Allergy Unknown Verified 06/22/17 10:37 azithromycin [From Zithromax] AdvReac Nausea & Verified 06/22/17 10:37 Vomiting & Diarrhea clindamycin AdvReac Dyspnea Verified 06/22/17 10:37 corn syrup AdvReac Nausea Verified 06/22/17 10:37 lactose AdvReac Nausea Verified 06/22/17 10:37 levofloxacin [From Levaquin] AdvReac Dyspnea Verified 06/22/17 10:37 neomycin [Neomycin] AdvReac Dyspnea Verified 06/22/17 10:37 omalizumab [From Xolair] AdvReac Dyspnea Verified 06/22/17 10:37 sulfamethoxazole AdvReac Diarrhea/co Verified 06/22/17 10:37 [From Bactrim] litis trimethoprim [From Bactrim] AdvReac Diarrhea/co Verified 06/22/17 10:37 litis Physical Exam Vitals: Vital Signs Temp Pulse Pulse Resp BP BP Pulse Ox 06/22/17 13:10 97.8 F 93 18 117/67 06/22/17 12:45 100.4 F H 92 15 100/54 98 06/22/17 12:22 100.6 F H 92 15 112/59 98 06/22/17 11:43 99 06/22/17 10:57 100.2 F H 100 24 147/74 100 06/22/17 10:43 101.9 F H 93 26 H 140/64 98 06/22/17 10:42 91 06/22/17 10:32 101.9 F H 95 30 H 159/76 96 Intake and Output 06/21/17 06/22/17 06/22/17 22:59 06:59 14:59 Other: Weight 44.9 kg Patient Weight 06/23/17 06:59 Weight 44.9 kg Constitutional: Mild respiratory distress, speaking in complete sentences Eyes: Anicteric sclerae, moist conjunctiva, no lid-lag, PERRLA ENMT: NC/AT,Oropharynx clear, no erythema, exudates Neck:Supple, FROM, no masses, or JVD, No carotid bruits; No thyromegaly Lungs: Expiratory wheezes and stridor, Clear to percussion, increased respiratory effort, croupy cough, no accessory muscle use Cardiovascular: Heart regular in rate and rhythm, No murmurs, gallops, or rubs no peripheral edema Abdominal: Soft Nontender, nom distended, no guarding, no rebound or rigidity, Normoactive bowel sounds No hepatomegaly, No splenomegaly, No palpable mass No abdominal wall hernia noted Skin: Normal temperature, tone, texture, turgor, No induration No subcutaneous nodules, No rash, lesions, No ulcers Extremities:No digital cyanosis No clubbing, Pedal pulses intact and symmetrical Radial pulses intact and symmetrical Normal gait and station, No calf tenderness Psychiatric: Alert and oriented to person, place and time, Appropriate affect Intact judgement Neuro: Muscles Strength 5/5 in all 4 extremities, Sensation to light touch grossly present throughout, Cranial nerves II-XII grossly intact. No focal sensory deficits Results CBC & Chem 7: 06/22/17 10:45 06/22/17 10:45 Labs: Abnormal Lab Results - Last 24 Hours (Table) 06/22/17 06/22/17 Range/Units 10:45 10:45 PT 22.8 H (9.0-12.0) sec INR 2.4 H (<1.2) APTT 32.1 H (22.0-30.0) sec AST 46 H (14-36) U/L Comments: Chest x-ray showing mild vascular congestion, poor inspiration with cardiomegaly Chest x-ray: report reviewed, image reviewed Assessment and Plan (1) Acute bronchitis Status: Acute (2) Acute exacerbation of chronic obstructive pulmonary disease (COPD) Status: Acute (3) Congestive cardiac failure Status: Acute (4) Tracheobronchomalacia Status: Acute Plan: Assessment Acute Asthma exacerbation Acute bronchitis Fever Tracheobronchomalacia Hypothyroidism GERD History of DVT on Coumadin therapy History of congestive heart failure Plan Patient admitted to the medical floor with acute COPD exacerbation triggered by likely acute bronchitis in the setting of underlying tracheobronchomalacia With fever. Continue systemic steroids, scheduled as when necessary DuoNeb breathing treatments, antibiotics with doxycycline. We'll consult her child protective services specialist Dr. Barber. Continue with supportive management for fever and nausea as needed. We'll continue her chronic medications and continue to follow her clinical course. Anticipate a greater than 2 midnight stay Time with Patient: Greater than 30
[2017-06-22] MEDS: BUDESONIDE 0.5 MG/2 ML NEBU INHALATION SCH (20:27)
[2017-06-22] MEDS: METOPROLOL TARTRATE 50 MG TAB PO SCH (21:58)
[2017-06-22] MEDS: guaiFENesin 600 MG TABLET.ER PO SCH (21:59)
[2017-06-22] MEDS: FAMOTIDINE 20 MG TAB PO SCH (22:00)
[2017-06-22] MEDS: MONTELUKAST 10 MG TAB PO SCH (22:00)
[2017-06-23] MEDS: methylPREDNISolone SOD SUCCI 125 MG/2 ML VIAL IV SCH ×5 (02:05→23:43)
[2017-06-23] MEDS: SODIUM CHLORIDE 0.9% 1,000 ML IV SCH ×3 (02:07→13:46)
[2017-06-23] MEDS: ALPRAZolam 0.5 MG TAB PO SCH ×3 (06:18→21:56)
[2017-06-23] MEDS: LEVOTHYROXINE 50 MCG TAB PO SCH (06:19)
[2017-06-23] MEDS: FUROSEMIDE 40 MG TAB PO SCH ×2 (06:19→14:42)
[2017-06-23 07:30] LABS: Glucose,Whole Blood 150 mg/dL (75-99)
[2017-06-23] MEDS: HYDROcodone/APAP 5-325MG 1 EACH TAB PO PRN ×2 (07:41→18:20)
[2017-06-23] MEDS: LORATADINE 10 MG TAB PO SCH (07:43)
[2017-06-23] MEDS: DOXYCYCLINE 50 MG CAP PO SCH ×2 (07:43→21:55)
[2017-06-23] MEDS: FAMOTIDINE 20 MG TAB PO SCH ×2 (07:43→21:55)
[2017-06-23] MEDS: guaiFENesin 600 MG TABLET.ER PO SCH ×2 (07:43→21:55)
[2017-06-23] MEDS: METOPROLOL TARTRATE 50 MG TAB PO SCH ×2 (07:49→21:56)
[2017-06-23] MEDS: BUDESONIDE 0.5 MG/2 ML NEBU INHALATION SCH ×2 (08:40→20:10)
[2017-06-23] MEDS: IPRATROPIUM-ALBUTEROL 3 ML NEB INHALATION SCH ×4 (08:40→20:15)
[2017-06-23] MEDS ORDERED: ENOXAPARIN 40 MG/0.4 ML SYRINGE SQ SCH (09:00)
[2017-06-23 10:34] LABS: Basophils % (A) 0 %; CHCM 32.6; Eosinophils % (A) 0 %; HCT 38.7 % (34.0-46.0); HGB 12.8 gm/dL (11.4-16.0); Luc # (Auto) 0.05; Luc % (Auto) 0; Lymphocytes # (A) 1.7 k/uL (1.0-4.8); Lymphocytes % (A) 14 %; MCH 29.5 pg (25.0-35.0); MCHC 33.1 g/dL (31.0-37.0); MCV 89.2 fL (80.0-100.0); Mean Platelet Volume 7.8; Monocytes # (A) 0.3 k/uL (0-1.0); Monocytes % (A) 2 %; Neutrophils # (A) 9.9 k/uL (1.3-7.7); Neutrophils % (A) 83 %; RBC 4.33 m/uL (3.80-5.40); RDW 13.9 % (11.5-15.5); WBC (Perox) 12.65
--- NOTE | 2017-06-23 11:17 | P.PN ---
Subjective Principal diagnosis: Assessment exacerbation superimposed on underlying tracheal bronchomalacia and acute bronchitis Patient feeling much better today, reports improvement shortness of breath still having stridors, and productive cough, reports fever overnight Objective - Vital Signs Vital signs: Vital Signs Temp 96.9 F L 06/23/17 07:00 Pulse 80 06/23/17 08:56 Resp 18 06/23/17 07:00 BP 121/66 06/23/17 07:00 Pulse Ox 93 L 06/23/17 08:41 Intake & Output 06/22/17 06/23/17 06/23/17 18:59 06:59 18:59 Weight 44.9 kg 132 kg Other: # Voids 2 1 - Exam Constitutional: No acute distress, conversant, pleasant Eyes: Anicteric sclerae, moist conjunctiva, no lid-lag, PERRLA ENMT: NC/AT,Oropharynx clear, no erythema, exudates Neck:Supple, FROM, no masses, or JVD, No carotid bruits; No thyromegaly Lungs: Good aeration, noted expiratory wheezes and stridor Clear to percussion, Normal respiratory effort, no accessory muscle use Cardiovascular: Heart regular in rate and rhythm, No murmurs, gallops, or rubs no peripheral edema Abdominal: Soft Nontender, nom distended, no guarding, no rebound or rigidity, Normoactive bowel sounds No hepatomegaly, No splenomegaly, No palpable mass No abdominal wall hernia noted Skin: Normal temperature, tone, texture, turgor, No induration No subcutaneous nodules, No rash, lesions, No ulcers Extremities:No digital cyanosis No clubbing, Pedal pulses intact and symmetrical Radial pulses intact and symmetrical Normal gait and station, No calf tenderness Psychiatric: Alert and oriented to person, place and time, Appropriate affect Intact judgement Neuro: Muscles Strength 5/5 in all 4 extremities, Sensation to light touch grossly present throughout, Cranial nerves II-XII grossly intact. No focal sensory deficits - Labs CBC & Chem 7: 06/23/17 10:11 06/22/17 10:45 Labs: Abnormal Lab Results - Last 24 Hours (Table) 06/22/17 06/22/17 06/22/17 Range/Units 10:45 10:45 16:59 PT 22.8 H (9.0-12.0) sec INR 2.4 H (<1.2) APTT 32.1 H (22.0-30.0) sec POC Glucose (mg/dL) 244 H (75-99) mg/dL AST 46 H (14-36) U/L 06/23/17 Range/Units 07:28 PT (9.0-12.0) sec INR (<1.2) APTT (22.0-30.0) sec POC Glucose (mg/dL) 150 H (75-99) mg/dL AST (14-36) U/L Assessment and Plan (1) Acute bronchitis Status: Acute (2) Acute exacerbation of chronic obstructive pulmonary disease (COPD) Status: Acute (3) Congestive cardiac failure Status: Acute (4) Tracheobronchomalacia Status: Acute Plan: Assessment Acute Asthma exacerbation * Secondary to acute bronchitis, continue with current treatment regimen IV steroids and scheduled and as needed breathing treatments * Continue with supplemental oxygen to keep sats 90- 92%, Acute bronchitis * Continue supportive management, continue treatment of COPD and supportive management with Mucinex Fever * Febrile overnight , mild leukocytosis and cultures were drawn in the ER review of records indicated currently pending we'll double check and reorder if they weren't drawn * Continue with antibiotics doxycycline Tracheobronchomalacia Hypothyroidism * continue with home medications GERD History of DVT on Coumadin therapy History of congestive heart failure * Stable euvolemic exam continue with chronic medications disposition * Continue current management, patient stilll febrile . Follow-up Culture results * Appreciate pulmonology's input and recommendations
[2017-06-23 11:31] LABS: Glucose,Whole Blood 110 mg/dL (75-99)
[2017-06-23] MEDS: MAGNESIUM OXIDE 400 MG TAB PO SCH (12:27)
--- NOTE | 2017-06-23 12:44 | P.PN ---
Subjective This is a 56-year-old female, quite familiar to our service, patient is known to have severe persistent asthma, vocal cord dysfunction, tracheobronchomalacia , chronic atrial fibrillation, obstructive sleep apnea syndrome, chronic systolic dysfunction, ejection fraction about 40%, generalized anxiety disorder , used to be frequently inpatient for recurrent episodes of asthma exacerbation on cough, however her last admission was back in December of 2016. Patient has been doing relatively well, she is not prednisone dependent, but she is on multiple bronchodilators for her underlying severe persistent asthma. Patient presented to the ER with a few days' history of cough, wheezing, shortness of breath, and low-grade fever. Chest x-ray was noted to be relatively unremarkable except for poor inspiratory effort, but no evidence of congestive heart failure, and no evidence of pneumonia. Patient describes being under a lot of stress recently especially since she was made aware that she has a granddaughter with stage IV neuroblastoma. In the ER she had a teeth max of 100.6, she had a relatively normal CBC, normal basic metabolic profile, therapeutic INR, patient was admitted and this consult was initiated. She was already placed on bronchodilators, steroids, and I went ahead and added doxycycline and kept her on the usual bronchodilators and steroids. The patient is seen again today 06/23/2017 in follow-up on the regular medical floor. She is awake and alert in no acute distress. She has been using her CPAP intermittently and throughout the evenings. She denies any worsening shortness of breath. She continues with a dry nonproductive cough and occasional coughing spasms. She has been afebrile. She is maintaining O2 saturations in the 90s on 3 L/m per nasal cannula. Hemodynamically stable. Objective - Vital Signs Vital signs: Vital Signs Temp 96.9 F L 06/23/17 07:00 Pulse 80 06/23/17 12:24 Resp 18 06/23/17 07:00 BP 121/66 06/23/17 07:00 Pulse Ox 93 L 06/23/17 08:41 Intake & Output 06/22/17 06/23/17 06/23/17 18:59 06:59 18:59 Weight 44.9 kg 132 kg Other: # Voids 2 1 - Exam GENERAL EXAM: Morbidly obese. Alert, active, comfortable in no apparent distress. HEAD: Normocephalic. EYES: Normal reaction of pupils, equal size. NOSE: Clear with pink turbinates. THROAT: Crowding of the posterior pharynx. No erythema or exudates. NECK: Short. No masses, no JVD. CHEST: No chest wall deformity. LUNGS: Equal air entry with faint end expiratory wheeze.. CVS: S1 and S2 normal with no audible murmurs, regular rhythm. ABDOMEN: No hepatosplenomegaly, normal bowel sounds, no guarding or rigidity. SPINE: No scoliosis or deformity SKIN: No rashes CENTRAL NERVOUS SYSTEM: No focal deficits, tone is normal in all 4 extremities. Extremities: There is trace peripheral edema. No clubbing, no cyanosis. Peripheral pulses are intact. - Labs CBC & Chem 7: 06/23/17 10:11 06/22/17 10:45 Labs: Abnormal Lab Results - Last 24 Hours (Table) 06/22/17 06/23/17 06/23/17 Range/Units 16:59 07:28 10:11 WBC 12.0 H (3.8-10.6) k/uL Neutrophils # 9.9 H (1.3-7.7) k/uL POC Glucose (mg/dL) 244 H 150 H (75-99) mg/dL 06/23/17 Range/Units 11:28 WBC (3.8-10.6) k/uL Neutrophils # (1.3-7.7) k/uL POC Glucose (mg/dL) 110 H (75-99) mg/dL Assessment and Plan Plan: Oppression: #1 Acute exacerbation of chronic moderate intermittent asthma, complicated by purulent tracheobronchitis. No clear evidence of pneumonia. #2 Tracheobronchomalacia. #3 Chronic hoarseness secondary to vocal cord dysfunction. #4 Morbid obesity with cushingoid features. #5 Obstructive sleep apnea, maintained on CPAP therapy in the outpatient setting. #6 History of DVT, maintained on warfarin. #7 history of systolic congestive heart failure with estimated ejection fraction 40-45%. Plan: The patient was seen and evaluated by Dr. Rodriguez. She is improved slightly today as compared to yesterday. We'll continue with her current medications. We will increase her activity as tolerated. We'll continue to follow.
[2017-06-23 17:21] LABS: Glucose,Whole Blood 163 mg/dL (75-99)
[2017-06-23] MEDS: CHOLECALCIFEROL 1,000 UNIT TAB PO SCH (17:49)
[2017-06-23] MEDS: CALCIUM CARB-VIT D 500MG-200UN 1 EACH TAB PO SCH (17:49)
[2017-06-23] MEDS: POTASSIUM CHLORIDE ER 20 MEQ TAB.ER PO SCH (17:49)
[2017-06-23] MEDS: ASCORBIC ACID 500 MG TAB PO SCH (17:49)
[2017-06-23] MEDS: WARFARIN 5 MG TAB PO SCH (18:21)
[2017-06-23 20:43] LABS: Glucose,Whole Blood 155 mg/dL (75-99)
[2017-06-23] MEDS: MONTELUKAST 10 MG TAB PO SCH (21:55)
[2017-06-23] MEDS: CHLORPHEN-HYDROcod 8-10mg/5ml 5 ML ORAL.SYRG PO PRN (23:01)
[2017-06-24] MEDS: methylPREDNISolone SOD SUCCI 125 MG/2 ML VIAL IV SCH ×4 (06:32→23:22)
[2017-06-24] MEDS: ALPRAZolam 0.5 MG TAB PO SCH ×3 (06:32→23:18)
[2017-06-24] MEDS: LEVOTHYROXINE 50 MCG TAB PO SCH (06:32)
[2017-06-24] MEDS: FUROSEMIDE 40 MG TAB PO SCH ×2 (06:34→15:02)
[2017-06-24 07:46] LABS: Glucose,Whole Blood 136 mg/dL (75-99)
[2017-06-24] MEDS: guaiFENesin 600 MG TABLET.ER PO SCH ×2 (08:47→21:15)
[2017-06-24] MEDS: DOXYCYCLINE 50 MG CAP PO SCH ×2 (08:47→21:14)
[2017-06-24] MEDS: LORATADINE 10 MG TAB PO SCH (08:48)
[2017-06-24] MEDS: FAMOTIDINE 20 MG TAB PO SCH ×2 (08:48→21:14)
[2017-06-24] MEDS: METOPROLOL TARTRATE 50 MG TAB PO SCH ×2 (08:48→21:14)
[2017-06-24] MEDS: HYDROcodone/APAP 5-325MG 1 EACH TAB PO PRN ×3 (08:49→23:18)
[2017-06-24] MEDS: IPRATROPIUM-ALBUTEROL 3 ML NEB INHALATION SCH ×4 (08:58→20:03)
[2017-06-24] MEDS: BUDESONIDE 0.5 MG/2 ML NEBU INHALATION SCH ×2 (08:58→20:03)
[2017-06-24 11:53] LABS: Prothrombin Time 39.7 sec (9.0-12.0)
[2017-06-24 12:21] LABS: Glucose,Whole Blood 155 mg/dL (75-99)
--- NOTE | 2017-06-24 12:25 | P.PN ---
Subjective Principal diagnosis: COPD acute exacerbation superimposed on underlying tracheal bronchomalacia and acute bronchitis Patient stated that she is feeling little better today, reports improvement shortness of breath although when she walked in the hallways yesterday and on her second trip she got overworked and SOB, as she was walking without oxygen. Pt. report that she is still having striders, which is going for 7-5 years and is not worse. She also reports that her cough persists and last night she coughed up chunk of phlegm like cottage cheese but didn't reported to the nurse for sampling. Pt. stated that she is eating fine and having good BMs and nurse reports no fevers overnight. Objective - Vital Signs Vital signs: Vital Signs Temp 97.2 F L 06/24/17 07:00 Pulse 84 06/24/17 09:19 Resp 15 06/24/17 07:00 BP 113/75 06/24/17 07:00 Pulse Ox 95 06/24/17 07:00 Intake & Output 06/23/17 06/24/17 06/24/17 18:59 06:59 18:59 Intake Total 590 Balance 590 Weight 134.5 kg Intake: Oral 590 Other: # Voids 3 2 - Constitutional Constitutional Comment(s): Lying in bed with HOB elevated to 45%. General appearance: Present: cooperative, morbidly obese - EENT Eyes: Present: anicteric sclerae, EOMI, normal appearance ENT: Present: hearing grossly normal - Neck Neck: Present: normal ROM, stridor. Absent: lymphadenopathy, rigidity, thyromegaly - Respiratory Respiratory: bilateral: diminished, wheezing (Few scattered.), negative: rales, rhonchi - Cardiovascular Rhythm: regular Heart sounds: normal: S1, S2 Abnormal Heart Sounds: Absent: systolic murmur, diastolic murmur, rub, S3 Gallop , S4 Gallop, click - Gastrointestinal General gastrointestinal: Present: normal bowel sounds, soft. Absent: distended , hepatomegaly, rigid, tenderness - Neurologic Neurologic: Present: CNII-XII intact, focal deficits - Psychiatric Psychiatric: Present: A&O x's 3, appropriate affect - Labs CBC & Chem 7: 06/23/17 10:11 06/22/17 10:45 Labs: Abnormal Lab Results - Last 24 Hours (Table) 06/23/17 06/23/17 06/24/17 Range/Units 17:19 20:41 07:24 POC Glucose (mg/dL) 163 H 155 H 136 H (75-99) mg/dL Microbiology - Last 24 Hours (Table) 06/22/17 10:45 Blood Culture - Preliminary Blood No Growth after 24 hours - Imaging and Cardiology Chest x-ray: report reviewed Assessment and Plan (1) Acute exacerbation of chronic obstructive pulmonary disease (COPD) Narrative/Plan: Pt. is being treated with appropriate medications and is slowly improving, will continue current management and will try to down regulate Steroids in the morning. Pt. was advised to ambulate in he hallways with portable oxygen. She was also advised to collect the phlegm in the provided cup if she coughs up again for gram staining and cultures, nurse was made aware of it. With the slow improvement in her acute exacerbation and may need 1 - 2 more days of in- patient management. Status: Acute (2) Acute bronchitis Status: Acute (3) Coagulopathy Narrative/Plan: PT/INR ordered for today and will check in am also. Will continue current warfarin dose and will adjust if needed. Status: Acute (4) DVT (deep venous thrombosis) Narrative/Plan: See above. Status: Chronic (5) Stridor Status: Chronic (6) Tracheobronchomalacia Status: Acute Time with Patient: Less than 30
[2017-06-24] MEDS: MAGNESIUM OXIDE 400 MG TAB PO SCH (12:36)
[2017-06-24] MEDS: SODIUM CHLORIDE 0.9% 1,000 ML IV SCH (12:38)
--- NOTE | 2017-06-24 13:01 | P.PN ---
Subjective This is a 56-year-old female, quite familiar to our service, patient is known to have severe persistent asthma, vocal cord dysfunction, tracheobronchomalacia , chronic atrial fibrillation, obstructive sleep apnea syndrome, chronic systolic dysfunction, ejection fraction about 40%, generalized anxiety disorder , used to be frequently inpatient for recurrent episodes of asthma exacerbation on cough, however her last admission was back in December of 2016. Patient has been doing relatively well, she is not prednisone dependent, but she is on multiple bronchodilators for her underlying severe persistent asthma. Patient presented to the ER with a few days' history of cough, wheezing, shortness of breath, and low-grade fever. Chest x-ray was noted to be relatively unremarkable except for poor inspiratory effort, but no evidence of congestive heart failure, and no evidence of pneumonia. Patient describes being under a lot of stress recently especially since she was made aware that she has a granddaughter with stage IV neuroblastoma. In the ER she had a teeth max of 100.6, she had a relatively normal CBC, normal basic metabolic profile, therapeutic INR, patient was admitted and this consult was initiated. She was already placed on bronchodilators, steroids, and I went ahead and added doxycycline and kept her on the usual bronchodilators and steroids. The patient is seen again today 06/23/2017 in follow-up on the regular medical floor. She is awake and alert in no acute distress. She has been using her CPAP intermittently and throughout the evenings. She denies any worsening shortness of breath. She continues with a dry nonproductive cough and occasional coughing spasms. She has been afebrile. She is maintaining O2 saturations in the 90s on 3 L/m per nasal cannula. Hemodynamically stable. Patient is seen again today 06/24/2017 in follow-up on the regular medical floor. She is awake and alert in no acute distress. She states she did go for walk and did develop shortness of breath and wheezing. Still not back to her baseline. She remains with her chronic hoarseness. She is currently resting comfortably in bed. She is utilizing her CPAP. Maintaining O2 saturations in the mid 90s on 3 L/m per nasal cannula when off. She is afebrile. Objective - Vital Signs Vital signs: Vital Signs Temp 97.2 F L 06/24/17 07:00 Pulse 84 06/24/17 09:19 Resp 15 06/24/17 08:00 BP 113/75 06/24/17 07:00 Pulse Ox 95 06/24/17 07:00 Intake & Output 06/23/17 06/24/17 06/24/17 18:59 06:59 18:59 Intake Total 590 Balance 590 Weight 134.5 kg Intake: Oral 590 Other: # Voids 3 2 - Exam GENERAL EXAM: Morbidly obese. Alert, active, comfortable in no apparent distress. HEAD: Normocephalic. EYES: Normal reaction of pupils, equal size. NOSE: Clear with pink turbinates. THROAT: Crowding of the posterior pharynx. No erythema or exudates. NECK: Short. No masses, no JVD. CHEST: No chest wall deformity. LUNGS: Equal air entry with faint end expiratory wheeze.. CVS: S1 and S2 normal with no audible murmurs, regular rhythm. ABDOMEN: No hepatosplenomegaly, normal bowel sounds, no guarding or rigidity. SPINE: No scoliosis or deformity SKIN: No rashes CENTRAL NERVOUS SYSTEM: No focal deficits, tone is normal in all 4 extremities. Extremities: There is trace peripheral edema. No clubbing, no cyanosis. Peripheral pulses are intact. - Labs CBC & Chem 7: 06/23/17 10:11 06/22/17 10:45 Labs: Abnormal Lab Results - Last 24 Hours (Table) 06/23/17 06/23/17 06/24/17 Range/Units 17:19 20:41 07:24 PT (9.0-12.0) sec INR (<1.2) POC Glucose (mg/dL) 163 H 155 H 136 H (75-99) mg/dL 06/24/17 06/24/17 Range/Units 11:31 12:20 PT 39.7 H (9.0-12.0) sec INR 4.0 H (<1.2) POC Glucose (mg/dL) 155 H (75-99) mg/dL Microbiology - Last 24 Hours (Table) 06/22/17 10:45 Blood Culture - Preliminary Blood No Growth after 24 hours Assessment and Plan Plan: Oppression: #1 Acute exacerbation of chronic moderate intermittent asthma, complicated by purulent tracheobronchitis. No clear evidence of pneumonia. #2 Tracheobronchomalacia. #3 Chronic hoarseness secondary to vocal cord dysfunction. #4 Morbid obesity with cushingoid features. #5 Obstructive sleep apnea, maintained on CPAP therapy in the outpatient setting. #6 History of DVT, maintained on warfarin. #7 History of systolic congestive heart failure with estimated ejection fraction 40-45%. Plan: The patient was seen and evaluated by Dr. Rodriguez. She has been slow to progress. We'll continue with her current medications. We will increase her activity as tolerated. We'll continue to follow.
[2017-06-24] MEDS: WARFARIN 5 MG TAB PO SCH (15:41)
[2017-06-24 17:07] LABS: Glucose,Whole Blood 147 mg/dL (75-99)
[2017-06-24] MEDS: CHOLECALCIFEROL 1,000 UNIT TAB PO SCH (17:16)
[2017-06-24] MEDS: CALCIUM CARB-VIT D 500MG-200UN 1 EACH TAB PO SCH (17:16)
[2017-06-24] MEDS: ASCORBIC ACID 500 MG TAB PO SCH (17:16)
[2017-06-24] MEDS: POTASSIUM CHLORIDE ER 20 MEQ TAB.ER PO SCH (17:16)
[2017-06-24 20:30] LABS: Glucose,Whole Blood 180 mg/dL (75-99)
[2017-06-24] MEDS: MONTELUKAST 10 MG TAB PO SCH (21:15)
[2017-06-24] MEDS: CHLORPHEN-HYDROcod 8-10mg/5ml 5 ML ORAL.SYRG PO PRN (23:22)
[2017-06-25] MEDS: FUROSEMIDE 40 MG TAB PO SCH ×2 (06:24→14:35)
[2017-06-25] MEDS: methylPREDNISolone SOD SUCCI 125 MG/2 ML VIAL IV SCH (06:24)
[2017-06-25] MEDS: LEVOTHYROXINE 50 MCG TAB PO SCH (06:24)
[2017-06-25] MEDS: ALPRAZolam 0.5 MG TAB PO SCH ×3 (06:24→22:04)
[2017-06-25] MEDS: IPRATROPIUM-ALBUTEROL 3 ML NEB INHALATION SCH ×4 (07:13→20:47)
[2017-06-25] MEDS: BUDESONIDE 0.5 MG/2 ML NEBU INHALATION SCH ×2 (07:13→20:46)
[2017-06-25 07:19] LABS: Glucose,Whole Blood 120 mg/dL (75-99)
[2017-06-25 07:29] LABS: Basophils % (A) 0 %; CH 28.6; CHCM 31.9; Eosinophils % (A) 0 %; HCT 37.9 % (34.0-46.0); HDW 2.58; HGB 12.3 gm/dL (11.4-16.0); Luc # (Auto) 0.07; Luc % (Auto) 1; Lymphocytes # (A) 1.2 k/uL (1.0-4.8); Lymphocytes % (A) 9 %; MCH 29.2 pg (25.0-35.0); MCHC 32.4 g/dL (31.0-37.0); MCV 90.2 fL (80.0-100.0); Mean Platelet Volume 8.1; Monocytes # (A) 0.4 k/uL (0-1.0); Monocytes % (A) 3 %; Neutrophils # (A) 10.9 k/uL (1.3-7.7); Neutrophils % (A) 87 %; RDW 14.2 % (11.5-15.5); WBC 12.5 k/uL (3.8-10.6)
[2017-06-25 07:34] LABS: INR 4.3 (<1.2); Prothrombin Time 42.4 sec (9.0-12.0)
[2017-06-25] MEDS: METOPROLOL TARTRATE 50 MG TAB PO SCH ×2 (08:11→22:03)
[2017-06-25] MEDS: LORATADINE 10 MG TAB PO SCH (08:11)
[2017-06-25] MEDS: FAMOTIDINE 20 MG TAB PO SCH ×2 (08:11→22:03)
[2017-06-25] MEDS: guaiFENesin 600 MG TABLET.ER PO SCH ×2 (08:12→22:03)
[2017-06-25] MEDS: HYDROcodone/APAP 5-325MG 1 EACH TAB PO PRN ×2 (08:15→17:21)
[2017-06-25] MEDS: DOXYCYCLINE 50 MG CAP PO SCH ×2 (08:24→22:03)
[2017-06-25] MEDS: WARFARIN 5 MG TAB PO SCH (09:04)
--- NOTE | 2017-06-25 10:32 | XR ---
EXAMINATION TYPE: XR chest 1V portable DATE OF EXAM: 06/25/2017 HISTORY: sob/wheezing. REFERENCE: Previous study dated 06/22/2017. FINDINGS: The heart is enlarged. There is mild vascular congestion without terese edema. The left CP a ngle is obscured. I could not exclude a small effusion. IMPRESSION: 1. CARDIOMEGALY. 2. VASCULAR CONGESTION WITHOUT TERESE EDEMA. 3. I COULD NOT EXCLUDE A SMALL, LEFT PLEURAL EFFUSION.
--- NOTE | 2017-06-25 10:52 | P.PN ---
Subjective Principal diagnosis: Asthma acute exacerbation superimposed on underlying tracheal bronchomalacia and acute bronchitis Pt. reports that she is doing so so for now. Yesterday she walked in the hallways without oxygen again and didn't do good as she got very SOB and tired with exertion and has to returned to her room. She also reported that she was told by the lung specialist that she may have to go for another BRONCHOSCOPY for cleaning of the airways in the morning. Nurse reported no other issues and pt. reported that she is still bringing up yellow colored phlegm. Pt's INR this morning is 4.3 despite of holding her warfarin last night. No bleeding reported by the pt. Pt. denies HINSON, Dizyness, CP, Palpitations, Diaphoresis, F/C, Nausea or Vomiting and denies rest of the ROS. Objective - Vital Signs Vital signs: Vital Signs Temp 97.4 F L 06/25/17 07:00 Pulse 88 06/25/17 07:42 Resp 18 06/25/17 07:13 BP 162/79 06/25/17 07:00 Pulse Ox 93 L 06/24/17 23:00 Intake & Output 06/24/17 06/25/17 06/25/17 18:59 06:59 18:59 Intake Total 200 Balance 200 Intake: Oral 200 Other: # Voids 1 2 # Bowel Movements 0 - Constitutional Constitutional Comment(s): Lying comfortable in bed and reading book, General appearance: Present: cooperative, mild distress, morbidly obese - EENT Eyes: Present: anicteric sclerae, EOMI ENT: Present: hearing grossly normal, normal oropharynx. Absent: hard of hearing, pharyngeal erythema - Neck Neck: Present: normal ROM, stridor. Absent: lymphadenopathy, rigidity, thyromegaly - Respiratory Respiratory: bilateral: CTA, diminished, dullness, rhonchi, wheezing (Few and scattered.), prolonged expiration, negative: rales, prolonged inspiration, other - Cardiovascular Heart rate: 92 Rhythm: regular Heart sounds: normal: S1, S2 Abnormal Heart Sounds: Absent: systolic murmur, diastolic murmur, rub, S3 Gallop , S4 Gallop, click - Gastrointestinal General gastrointestinal: Present: normal bowel sounds, soft. Absent: distended , hepatomegaly, organomegaly, rigid, tenderness - Neurologic Neurologic: Present: CNII-XII intact. Absent: focal deficits - Psychiatric Psychiatric: Present: A&O x's 3, appropriate affect, intact judgment & insight - Labs CBC & Chem 7: 06/25/17 07:00 06/22/17 10:45 Labs: Abnormal Lab Results - Last 24 Hours (Table) 06/24/17 06/24/17 06/24/17 Range/Units 11:31 12:20 17:02 WBC (3.8-10.6) k/uL Neutrophils # (1.3-7.7) k/uL PT 39.7 H (9.0-12.0) sec INR 4.0 H (<1.2) POC Glucose (mg/dL) 155 H 147 H (75-99) mg/dL 06/24/17 06/25/17 06/25/17 Range/Units 20:22 06:55 07:00 WBC 12.5 H (3.8-10.6) k/uL Neutrophils # 10.9 H (1.3-7.7) k/uL PT 42.4 H (9.0-12.0) sec INR 4.3 H (<1.2) POC Glucose (mg/dL) 180 H (75-99) mg/dL 06/25/17 Range/Units 07:17 WBC (3.8-10.6) k/uL Neutrophils # (1.3-7.7) k/uL PT (9.0-12.0) sec INR (<1.2) POC Glucose (mg/dL) 120 H (75-99) mg/dL Microbiology - Last 24 Hours (Table) 06/24/17 15:18 Gram Stain - Preliminary Sputum 06/22/17 10:45 Blood Culture - Preliminary Blood No Growth after 48 hours - Imaging and Cardiology Chest x-ray: image reviewed (Improved aeriation noted without evidence of consolidation.) Assessment and Plan (1) Acute exacerbation of chronic obstructive pulmonary disease (COPD) Narrative/Plan: Pt. is showing some clinical improvement and her CXR is also improving, will continue current management and will change steroid to oral route now and will monitor. Final report from gram staining and cultures of sputum is pending, but preliminary report suggested no significant infection. With the slow improvement in her acute exacerbation, she may need another bronchoscopy for airway cleaning prior to discharge. Pulmonary team is following the pt. daily and will decide about it in the morning. Status: Acute (2) Acute bronchitis Narrative/Plan: See plan above. Status: Acute (3) Coagulopathy Narrative/Plan: Pt's INR is further elevated without any evidence of bleeding, I will hold warfarin again today and check INR in the morning. Status: Acute (4) DVT (deep venous thrombosis) Narrative/Plan: Continue anticoagulation with Warfarin as per INR. Status: Chronic (5) Stridor Status: Chronic (6) Tracheobronchomalacia Status: Acute
[2017-06-25] MEDS ORDERED: predniSONE 20 MG TAB PO SCH (11:00)
[2017-06-25] MEDS: MAGNESIUM OXIDE 400 MG TAB PO SCH (11:14)
[2017-06-25] MEDS: SODIUM CHLORIDE 0.9% 1,000 ML IV SCH (11:17)
[2017-06-25 11:47] LABS: Glucose,Whole Blood 151 mg/dL (75-99)
--- NOTE | 2017-06-25 13:52 | P.PN ---
Subjective Principal diagnosis: Acute exacerbation of severe persistent asthma This is a 56-year-old female, quite familiar to our service, patient is known to have severe persistent asthma, vocal cord dysfunction, tracheobronchomalacia , chronic atrial fibrillation, obstructive sleep apnea syndrome, chronic systolic dysfunction, ejection fraction about 40%, generalized anxiety disorder , used to be frequently inpatient for recurrent episodes of asthma exacerbation on cough, however her last admission was back in December of 2016. Patient has been doing relatively well, she is not prednisone dependent, but she is on multiple bronchodilators for her underlying severe persistent asthma. Patient presented to the ER with a few days' history of cough, wheezing, shortness of breath, and low-grade fever. Chest x-ray was noted to be relatively unremarkable except for poor inspiratory effort, but no evidence of congestive heart failure, and no evidence of pneumonia. Patient describes being under a lot of stress recently especially since she was made aware that she has a granddaughter with stage IV neuroblastoma. In the ER she had a teeth max of 100.6, she had a relatively normal CBC, normal basic metabolic profile, therapeutic INR, patient was admitted and this consult was initiated. She was already placed on bronchodilators, steroids, and I went ahead and added doxycycline and kept her on the usual bronchodilators and steroids. The patient is seen again today 06/23/2017 in follow-up on the regular medical floor. She is awake and alert in no acute distress. She has been using her CPAP intermittently and throughout the evenings. She denies any worsening shortness of breath. She continues with a dry nonproductive cough and occasional coughing spasms. She has been afebrile. She is maintaining O2 saturations in the 90s on 3 L/m per nasal cannula. Hemodynamically stable. Patient is seen again today 06/24/2017 in follow-up on the regular medical floor. She is awake and alert in no acute distress. She states she did go for walk and did develop shortness of breath and wheezing. Still not back to her baseline. She remains with her chronic hoarseness. She is currently resting comfortably in bed. She is utilizing her CPAP. Maintaining O2 saturations in the mid 90s on 3 L/m per nasal cannula when off. She is afebrile. Reevaluated today on 06/25/2017, patient continues to have intermittent episodes of cough wheezing shortness of breath. Continues to utilize CPAP, she is maximized on bronchodilators. Not quite ready for discharge planning at this point. I believe the patient has a significant component of anxiety, tracheobronchomalacia, and vocal cord dysfunction in addition to her severe persistent asthma. Objective - Vital Signs Vital signs: Vital Signs Temp 97.4 F L 06/25/17 07:00 Pulse 82 06/25/17 11:59 Resp 20 06/25/17 11:42 BP 162/79 06/25/17 07:00 Pulse Ox 93 L 06/24/17 23:00 Intake & Output 06/24/17 06/25/17 06/25/17 18:59 06:59 18:59 Intake Total 200 Balance 200 Weight 135 kg Intake: Oral 200 Other: # Voids 1 2 # Bowel Movements 0 - Exam GENERAL EXAM: Morbidly obese. Alert, active, comfortable in no apparent distress. HEAD: Normocephalic. EYES: Normal reaction of pupils, equal size. NOSE: Clear with pink turbinates. THROAT: Crowding of the posterior pharynx. No erythema or exudates. NECK: Short. No masses, no JVD. CHEST: No chest wall deformity. LUNGS: Equal air entry with diffuse rhonchi and wheezes bilaterally. CVS: S1 and S2 normal with no audible murmurs, regular rhythm. ABDOMEN: No hepatosplenomegaly, normal bowel sounds, no guarding or rigidity. SPINE: No scoliosis or deformity SKIN: No rashes CENTRAL NERVOUS SYSTEM: No focal deficits, tone is normal in all 4 extremities. Extremities: There is trace peripheral edema. No clubbing, no cyanosis. Peripheral pulses are intact. - Labs CBC & Chem 7: 06/25/17 07:00 06/22/17 10:45 Labs: Abnormal Lab Results - Last 24 Hours (Table) 06/24/17 06/24/17 06/25/17 Range/Units 17:02 20:22 06:55 WBC (3.8-10.6) k/uL Neutrophils # (1.3-7.7) k/uL PT 42.4 H (9.0-12.0) sec INR 4.3 H (<1.2) POC Glucose (mg/dL) 147 H 180 H (75-99) mg/dL 06/25/17 06/25/17 06/25/17 Range/Units 07:00 07:17 11:45 WBC 12.5 H (3.8-10.6) k/uL Neutrophils # 10.9 H (1.3-7.7) k/uL PT (9.0-12.0) sec INR (<1.2) POC Glucose (mg/dL) 120 H 151 H (75-99) mg/dL Microbiology - Last 24 Hours (Table) 06/22/17 10:45 Blood Culture - Preliminary Blood No Growth after 72 hours 06/24/17 15:18 Gram Stain - Preliminary Sputum Assessment and Plan Plan: 1 Acute exacerbation of chronic moderate intermittent asthma, complicated by purulent tracheobronchitis. No clear evidence of pneumonia. #2 Tracheobronchomalacia. #3 Chronic hoarseness secondary to vocal cord dysfunction. #4 Morbid obesity with cushingoid features. #5 Obstructive sleep apnea, maintained on CPAP therapy in the outpatient setting. #6 History of DVT, maintained on warfarin. #7 History of systolic congestive heart failure with estimated ejection fraction 40-45%. Plan: Continue present supportive care measures, bronchodilators, not ready for discharge planning at this point, patient is to be seen by Dr. Winston in the morning, I believe the patient has a significant component of asthma, anxiety, tracheobronchomalacia, and vocal cord dysfunction. Time with Patient: Less than 30
[2017-06-25 17:07] LABS: Glucose,Whole Blood 136 mg/dL (75-99)
[2017-06-25] MEDS: POTASSIUM CHLORIDE ER 20 MEQ TAB.ER PO SCH (17:19)
[2017-06-25] MEDS: CALCIUM CARB-VIT D 500MG-200UN 1 EACH TAB PO SCH (17:19)
[2017-06-25] MEDS: CHOLECALCIFEROL 1,000 UNIT TAB PO SCH (17:19)
[2017-06-25] MEDS: ASCORBIC ACID 500 MG TAB PO SCH (17:19)
[2017-06-25 20:38] LABS: Glucose,Whole Blood 229 mg/dL (75-99)
[2017-06-25] MEDS: MONTELUKAST 10 MG TAB PO SCH (22:03)
[2017-06-25] MEDS: CHLORPHEN-HYDROcod 8-10mg/5ml 5 ML ORAL.SYRG PO PRN (22:41)
[2017-06-26] MEDS: HYDROcodone/APAP 5-325MG 1 EACH TAB PO PRN ×3 (00:22→15:14)
[2017-06-26] MEDS: FUROSEMIDE 40 MG TAB PO SCH ×2 (06:29→13:36)
[2017-06-26] MEDS: LEVOTHYROXINE 50 MCG TAB PO SCH (06:29)
[2017-06-26] MEDS: ALPRAZolam 0.5 MG TAB PO SCH ×3 (06:29→21:06)
[2017-06-26 06:52] LABS: Glucose,Whole Blood 76 mg/dL (75-99)
[2017-06-26] MEDS: IPRATROPIUM-ALBUTEROL 3 ML NEB INHALATION SCH ×4 (07:41→19:49)
[2017-06-26] MEDS: BUDESONIDE 0.5 MG/2 ML NEBU INHALATION SCH ×2 (07:41→19:48)
--- NOTE | 2017-06-26 08:17 | P.PN ---
Subjective Principal diagnosis: Assessment Acute exacerbation of moderate persistent asthma superimposed on underlying tracheal bronchomalacia and acute bronchitis. Patient presented with fevers which have since resolved, on antibiotic therapy with doxycycline, blood urine cultures are negative, sputum culture pending, preliminary indicating gram- positive cocci in clusters. Patient not feeling much better today, reports ongoing shortness of breath still having stridors, and productive cough, patient afebrile for the last 3 days Objective - Vital Signs Vital signs: Vital Signs Temp 97.7 F 06/26/17 07:00 Pulse 84 06/26/17 07:53 Resp 18 06/26/17 07:00 BP 158/58 06/26/17 07:00 Pulse Ox 99 06/26/17 07:42 Intake & Output 06/25/17 06/26/17 06/26/17 18:59 06:59 18:59 Weight 135.5 kg Other: # Voids 3 1 - Exam Constitutional: No acute distress, conversant, pleasant Eyes: Anicteric sclerae, moist conjunctiva, no lid-lag, PERRLA ENMT: NC/AT,Oropharynx clear, no erythema, exudates Neck:Supple, FROM, no masses, or JVD, No carotid bruits; No thyromegaly Lungs: Good aeration, noted expiratory wheezes and stridor Clear to percussion, Normal respiratory effort, no accessory muscle use Cardiovascular: Heart regular in rate and rhythm, No murmurs, gallops, or rubs no peripheral edema Abdominal: Soft Nontender, nom distended, no guarding, no rebound or rigidity, Normoactive bowel sounds No hepatomegaly, No splenomegaly, No palpable mass No abdominal wall hernia noted Skin: Normal temperature, tone, texture, turgor, No induration No subcutaneous nodules, No rash, lesions, No ulcers Extremities:No digital cyanosis No clubbing, Pedal pulses intact and symmetrical Radial pulses intact and symmetrical Normal gait and station, No calf tenderness Psychiatric: Alert and oriented to person, place and time, Appropriate affect Intact judgement Neuro: Muscles Strength 5/5 in all 4 extremities, Sensation to light touch grossly present throughout, Cranial nerves II-XII grossly intact. No focal sensory deficits - Labs CBC & Chem 7: 06/25/17 07:00 06/22/17 10:45 Labs: Abnormal Lab Results - Last 24 Hours (Table) 06/25/17 06/25/17 06/25/17 Range/Units 11:45 17:06 20:31 PT (9.0-12.0) sec INR (<1.2) POC Glucose (mg/dL) 151 H 136 H 229 H (75-99) mg/dL 06/26/17 Range/Units 07:10 PT 29.0 H (9.0-12.0) sec INR 3.0 H (<1.2) POC Glucose (mg/dL) (75-99) mg/dL Microbiology - Last 24 Hours (Table) 06/22/17 10:45 Blood Culture - Preliminary Blood No Growth after 72 hours - Imaging and Cardiology Chest x-ray: report reviewed (Cardiomegaly with vascular congestion), image reviewed Assessment and Plan (1) Acute exacerbation of chronic obstructive pulmonary disease (COPD) Narrative/Plan: Exacerbation of moderate persistent asthma complicated by purulent tracheobronchitis * Secondary to acute bronchitis, clinically no improvement today on day 4 we'll resume regimen IV steroids and increased. 125 mg IV every 8 of Solu-Medrol, continue scheduled and as needed breathing treatments * Continue with supplemental oxygen to keep sats 90- 92% on 3 L nasal cannula, add Mucomyst QID to regimen. * Pulmonary team following, patient reports that they're considering bronchoscopy. Status: Acute (2) Acute bronchitis Narrative/Plan: Treatment as above Status: Acute (3) Congestive cardiac failure Status: Chronic (4) Tracheobronchomalacia Status: Acute (5) Coagulopathy Narrative/Plan: Supratherapeutic INR now at 3 down from 4.3 - no active signs of bleeding, hemodynamically stable Continue to hold Coumadin Status: Acute (6) Fever Narrative/Plan: The patient was afebrile for past 3 days, urine and blood cultures of a negative sputum culture pending Status: Acute
[2017-06-26] MEDS: FAMOTIDINE 20 MG TAB PO SCH ×2 (08:50→21:04)
[2017-06-26] MEDS: guaiFENesin 600 MG TABLET.ER PO SCH ×2 (08:50→21:04)
[2017-06-26] MEDS: DOXYCYCLINE 50 MG CAP PO SCH ×2 (08:50→21:04)
[2017-06-26] MEDS: LORATADINE 10 MG TAB PO SCH (08:50)
[2017-06-26] MEDS: methylPREDNISolone SOD SUCCI 125 MG/2 ML VIAL IV SCH ×3 (08:50→23:45)
[2017-06-26] MEDS: METOPROLOL TARTRATE 50 MG TAB PO SCH ×2 (08:50→21:04)
[2017-06-26] MEDS: ACETYLCYSTEINE 800 MG/4 ML VIAL INHALATION SCH ×3 (11:17→19:47)
[2017-06-26 12:11] LABS: Glucose,Whole Blood 108 mg/dL (75-99)
[2017-06-26] MEDS: SODIUM CHLORIDE 0.9% 1,000 ML IV SCH (12:45)
[2017-06-26] MEDS: MAGNESIUM OXIDE 400 MG TAB PO SCH (12:45)
--- NOTE | 2017-06-26 14:18 | P.PN ---
Subjective Progress note dated 06/26/2017 This is a 56-year-old female well-known to our service. She has history of severe chronic bronchial asthma vocal cord dysfunction tracheal bronchomalacia chronic atrial fibrillation sleep apnea syndrome obesity chronic systolic dysfunction generalized anxiety disorder. The patient still not feeling well. Was admitted on June 22. The patient continues To cough and produce yellow green phlegm. Has severe tracheobronchomalacia. The patient has no fever or chills. Not coughing up any blood. No chest pain or chest discomfort. No nausea vomiting or diarrhea. Objective - Vital Signs Vital signs: Vital Signs Temp 97.7 F 06/26/17 07:00 Pulse 92 06/26/17 11:39 Resp 18 06/26/17 07:00 BP 158/58 06/26/17 07:00 Pulse Ox 99 06/26/17 07:42 Intake & Output 06/25/17 06/26/17 06/26/17 18:59 06:59 18:59 Weight 135.5 kg Other: # Voids 3 1 - Exam No acute distress, oriented 3. Frequent cough. Her cough sounds like summary with severe tracheobronchomalacia. HEENT examination is grossly unremarkable. Mucous membranes are moist. No oral lesions. Neck supple. Full range of motion. No adenopathy or thyromegaly. Neck veins are flat. Cardiovascular examination reveals regular rhythm rate. S1-S2 normal. No S3- S4 or murmur. Lungs reveals coarse rhonchi. Bilateral coarse wheezes This prolongation on forced maneuver. She wheezes and coughs on forced maneuver. Abdomen obese. Bowel sounds are heard. Extremities are intact. No cyanosis clubbing or edema. Skin is without rash. Neurologic examination is non-focal. - Labs CBC & Chem 7: 06/25/17 07:00 06/22/17 10:45 Labs: Abnormal Lab Results - Last 24 Hours (Table) 06/25/17 06/25/17 06/26/17 Range/Units 17:06 20:31 07:10 PT 29.0 H (9.0-12.0) sec INR 3.0 H (<1.2) POC Glucose (mg/dL) 136 H 229 H (75-99) mg/dL 06/26/17 Range/Units 12:09 PT (9.0-12.0) sec INR (<1.2) POC Glucose (mg/dL) 108 H (75-99) mg/dL Microbiology - Last 24 Hours (Table) 06/24/17 15:18 Gram Stain - Preliminary Sputum Sputum Culture - Final 06/22/17 10:45 Blood Culture - Preliminary Blood No Growth after 96 hours Assessment and Plan (1) Acute bronchitis Status: Acute (2) Acute exacerbation of chronic obstructive airways disease Status: Acute (3) Bronchospasm Status: Acute (4) Asthma Status: Acute (5) Bronchitis Status: Acute (6) Deep vein thrombosis of lower extremity Status: Acute (7) Dyspnea Status: Acute (8) Hx of Clostridium difficile infection Status: Acute (9) Mucopurulent chronic bronchitis Status: Acute (10) Tracheobronchitis Status: Acute (11) Tracheobronchomalacia determined by bronchoscopy Status: Acute (12) Tracheomalacia Status: Acute (13) Stridor Status: Chronic Plan: Plan dated 06/26/2017 The patient seemed be doing a bit better. Probably needs a few more days here in the hospital. Ultimately she may need bronchoscopy with airway secretion removal. We'll assess over the next couple of days and see how she is coming along. She continues use CPAP. She should continue on bronchodilators antibiotic steroids and the like. Time with Patient: Less than 30
[2017-06-26 16:53] LABS: Glucose,Whole Blood 135 mg/dL (75-99)
[2017-06-26] MEDS: CHOLECALCIFEROL 1,000 UNIT TAB PO SCH (17:42)
[2017-06-26] MEDS: CALCIUM CARB-VIT D 500MG-200UN 1 EACH TAB PO SCH (17:42)
[2017-06-26] MEDS: ASCORBIC ACID 500 MG TAB PO SCH (17:42)
[2017-06-26] MEDS: POTASSIUM CHLORIDE ER 20 MEQ TAB.ER PO SCH (17:42)
[2017-06-26] MEDS: WARFARIN 5 MG TAB PO SCH (18:28)
[2017-06-26] MEDS: FORMOTEROL FUMARATE 20 MCG/2 ML NEBU INHALATION SCH (19:49)
[2017-06-26 20:46] LABS: Glucose,Whole Blood 196 mg/dL (75-99)
[2017-06-26] MEDS: MONTELUKAST 10 MG TAB PO SCH (21:05)
[2017-06-26] MEDS: CHLORPHEN-HYDROcod 8-10mg/5ml 5 ML ORAL.SYRG PO PRN (23:45)
[2017-06-27] MEDS: ALPRAZolam 0.5 MG TAB PO SCH ×3 (06:05→21:28)
[2017-06-27] MEDS: LEVOTHYROXINE 50 MCG TAB PO SCH (06:33)
[2017-06-27 07:01] LABS: Glucose,Whole Blood 130 mg/dL (75-99)
[2017-06-27] MEDS: FORMOTEROL FUMARATE 20 MCG/2 ML NEBU INHALATION SCH ×2 (07:07→19:36)
[2017-06-27] MEDS: ACETYLCYSTEINE 800 MG/4 ML VIAL INHALATION SCH ×4 (07:08→19:36)
[2017-06-27] MEDS: IPRATROPIUM-ALBUTEROL 3 ML NEB INHALATION SCH ×4 (07:08→19:37)
[2017-06-27] MEDS: BUDESONIDE 0.5 MG/2 ML NEBU INHALATION SCH ×2 (07:08→19:36)
[2017-06-27] MEDS: LORATADINE 10 MG TAB PO SCH (09:03)
[2017-06-27] MEDS: methylPREDNISolone SOD SUCCI 125 MG/2 ML VIAL IV SCH ×3 (09:03→23:32)
[2017-06-27] MEDS: guaiFENesin 600 MG TABLET.ER PO SCH ×2 (09:03→21:12)
[2017-06-27] MEDS: FUROSEMIDE 40 MG TAB PO SCH ×2 (09:03→14:41)
[2017-06-27] MEDS: DOXYCYCLINE 50 MG CAP PO SCH ×2 (09:03→21:11)
[2017-06-27] MEDS: FAMOTIDINE 20 MG TAB PO SCH ×2 (09:03→21:11)
[2017-06-27] MEDS: METOPROLOL TARTRATE 50 MG TAB PO SCH ×2 (09:03→21:11)
[2017-06-27] MEDS: HYDROcodone/APAP 5-325MG 1 EACH TAB PO PRN ×2 (09:06→21:30)
[2017-06-27 11:49] LABS: INR 1.5 (<1.2); Prothrombin Time 14.5 sec (9.0-12.0)
[2017-06-27] MEDS: MAGNESIUM OXIDE 400 MG TAB PO SCH (12:49)
[2017-06-27] MEDS: SODIUM CHLORIDE 0.9% 1,000 ML IV SCH (12:50)
[2017-06-27 15:54] LABS: Glucose,Whole Blood 116 mg/dL (75-99)
--- NOTE | 2017-06-27 16:28 | P.PN ---
Subjective Principal diagnosis: Assessment Acute exacerbation of moderate persistent asthma superimposed on underlying tracheal bronchomalacia and acute bronchitis. Patient presented with fevers which have since resolved, on antibiotic therapy with doxycycline, blood urine cultures are negative, sputum culture normal respiratory cookie Patient feeling a little better today, since she's been ambulating in the halls urged to continue. Patient afebrile, having some stridors Wheezes, has vocal cord dysfunction, having productive cough Objective - Vital Signs Vital signs: Vital Signs Temp 97.4 F L 06/27/17 07:00 Pulse 76 06/27/17 07:51 Resp 16 06/27/17 07:00 BP 170/90 06/27/17 07:00 Pulse Ox 95 06/27/17 07:00 Intake & Output 06/26/17 06/27/17 06/27/17 18:59 06:59 18:59 Intake Total 160 Balance 160 Weight 131 kg Intake: Intake, IV Titration 160 Amount Sodium Chloride 0.9% 1, 160 000 ml @ 20 mls/hr IV . Q24H [facility] Rx#:[id number] Other: # Voids 3 1 - Exam Constitutional: No acute distress, conversant, pleasant Eyes: Anicteric sclerae, moist conjunctiva, no lid-lag, PERRLA ENMT: NC/AT,Oropharynx clear, no erythema, exudates Neck:Supple, FROM, no masses, or JVD, No carotid bruits; No thyromegaly Lungs: Good aeration, noted expiratory wheezes and stridor Clear to percussion, Normal respiratory effort, no accessory muscle use Cardiovascular: Heart regular in rate and rhythm, No murmurs, gallops, or rubs no peripheral edema Abdominal: Soft Nontender, nom distended, no guarding, no rebound or rigidity, Normoactive bowel sounds No hepatomegaly, No splenomegaly, No palpable mass No abdominal wall hernia noted Skin: Normal temperature, tone, texture, turgor, No induration No subcutaneous nodules, No rash, lesions, No ulcers Extremities:No digital cyanosis No clubbing, Pedal pulses intact and symmetrical Radial pulses intact and symmetrical Normal gait and station, No calf tenderness Psychiatric: Alert and oriented to person, place and time, Appropriate affect Intact judgement Neuro: Muscles Strength 5/5 in all 4 extremities, Sensation to light touch grossly present throughout, Cranial nerves II-XII grossly intact. No focal sensory deficits - Labs CBC & Chem 7: 06/25/17 07:00 06/22/17 10:45 Labs: Abnormal Lab Results - Last 24 Hours (Table) 06/26/17 06/26/17 06/26/17 Range/Units 12:09 16:51 20:45 POC Glucose (mg/dL) 108 H 135 H 196 H (75-99) mg/dL 06/27/17 Range/Units 06:45 POC Glucose (mg/dL) 130 H (75-99) mg/dL Microbiology - Last 24 Hours (Table) 06/24/17 15:18 Gram Stain - Final Sputum Sputum Culture - Final 06/22/17 10:45 Blood Culture - Preliminary Blood No Growth after 96 hours Assessment and Plan (1) Acute exacerbation of chronic obstructive pulmonary disease (COPD) Narrative/Plan: Exacerbation of moderate persistent asthma complicated by purulent tracheobronchitis * Secondary to acute bronchitis, clinically stable with slight improvement continue Solu-Medrol 125 mg IV every 8 of Solu-Medrol, continue scheduled and as needed breathing treatments * Continue with supplemental oxygen to keep sats 90- 92% on 3 L nasal cannula, continue Mucomyst QID to regimen. * Pulmonary team following, patient reports that they're considering bronchoscopy. Status: Acute (2) Acute bronchitis Narrative/Plan: Treatment as above Status: Acute (3) Congestive cardiac failure Status: Chronic (4) Tracheobronchomalacia Status: Acute (5) Coagulopathy Narrative/Plan: Supratherapeutic INR now at 3 down from 4.3 - no active signs of bleeding, hemodynamically stable Continue to hold Coumadin Status: Acute (6) Fever Narrative/Plan: The patient was afebrile for past 3 days, urine and blood cultures of a negative sputum culture pending Status: Acute
[2017-06-27 17:08] LABS: Glucose,Whole Blood 152 mg/dL (75-99)
--- NOTE | 2017-06-27 17:32 | PN ---
PROGRESS NOTE This patient is a 56-year-old female well known to our service. She has a history of severe chronic bronchial asthma, vocal cord dysfunction, tracheobronchomalacia, chronic atrial fibrillation, sleep apnea syndrome, obesity, chronic systolic dysfunction and generalized anxiety disorder. The patient states that she is feeling a bit better today. She continues to cough and produce a yellowish thick phlegm. No blood. She has severe tracheobronchomalacia. The patient has no fever or chills. She is not coughing up any blood. No chest pain or chest discomfort. No nausea, vomiting or diarrhea. PHYSICAL EXAMINATION: Most recent vitals include temperature 97.4, heart rate 60, respiratory rate 16, blood pressure 170/90, mean 116, and saturation of 95% on a couple liters. Appears in no acute distress. No respiratory distress. Current vital signs include temperature 98, heart rate 84, respiratory rate 16, blood pressure 105/78, mean 87. Room-air HEENT examination is grossly unremarkable. Mucous membranes are moist. No oral lesions. NECK: Supple. Full range of motion. No adenopathy or thyromegaly. Neck veins are flat. Cardiovascular examination reveals heart sounds that are distant. They are obscured by her respiratory sounds. S1, S2 normal. No S3, S4. No distinct murmur noted. Lungs reveal some coarse inspiratory and expiratory rhonchi. She has some wheezing on forced maneuver. She coughs on forced maneuver. Has a typical cough of someone with tracheobronchomalacia. ABDOMEN: Soft. Bowel sounds are heard. Extremities are intact. No cyanosis, clubbing or edema. Skin without rash. Neurologic examination is brief but nonfocal. LABS: Reviewed. Nothing new to report. Her PT and INR are 14.5 and 1.5 respectively. Microbiology is all negative. No recent x-rays to report. The last x-ray was done on June 25. MEDICATIONS: Medications were reviewed yesterday. ASSESSMENT: 1. Chronic obstructive pulmonary disease exacerbation complicated by acute purulent tracheobronchitis. 2. Acute bronchitis. 3. Severe bronchospasm with bronchial inflammation. 4. History of asthma. 5. Deep venous thrombosis of the lower extremity. 6. Dyspnea. 7. History of Clostridium difficile colitis. 8. Mucopurulent tracheobronchitis. 9. Tracheobronchomalacia. 10.Stridor. 11.Vocal cord dysfunction. PLAN: Will continue to follow closely. The patient seems to be improving with medical management alone. Labs, x-rays, medications are all reviewed. Additional recommendations and suggestions are forthcoming. Prognosis is guarded. MMODL / IJN: [id number] /
[2017-06-27] MEDS: CHOLECALCIFEROL 1,000 UNIT TAB PO SCH (17:33)
[2017-06-27] MEDS: WARFARIN 5 MG TAB PO SCH (17:33)
[2017-06-27] MEDS: ASCORBIC ACID 500 MG TAB PO SCH (17:33)
[2017-06-27] MEDS: CALCIUM CARB-VIT D 500MG-200UN 1 EACH TAB PO SCH (17:33)
[2017-06-27] MEDS: POTASSIUM CHLORIDE ER 20 MEQ TAB.ER PO SCH (17:33)
[2017-06-27 21:05] LABS: Glucose,Whole Blood 196 mg/dL (75-99)
[2017-06-27] MEDS: MONTELUKAST 10 MG TAB PO SCH (21:12)
[2017-06-27] MEDS: CHLORPHEN-HYDROcod 8-10mg/5ml 5 ML ORAL.SYRG PO PRN (22:14)
[2017-06-28] MEDS: ALPRAZolam 0.5 MG TAB PO SCH ×3 (06:18→21:57)
[2017-06-28] MEDS: LEVOTHYROXINE 50 MCG TAB PO SCH (06:19)
[2017-06-28] MEDS: FUROSEMIDE 40 MG TAB PO SCH ×2 (06:20→18:34)
[2017-06-28 07:32] LABS: Glucose,Whole Blood 112 mg/dL (75-99)
[2017-06-28] MEDS: ACETYLCYSTEINE 800 MG/4 ML VIAL INHALATION SCH ×4 (07:32→20:23)
[2017-06-28] MEDS: IPRATROPIUM-ALBUTEROL 3 ML NEB INHALATION SCH ×4 (07:33→20:23)
[2017-06-28] MEDS: FORMOTEROL FUMARATE 20 MCG/2 ML NEBU INHALATION SCH ×2 (07:33→20:22)
[2017-06-28] MEDS: BUDESONIDE 0.5 MG/2 ML NEBU INHALATION SCH ×2 (07:33→20:23)
[2017-06-28] MEDS: METOPROLOL TARTRATE 50 MG TAB PO SCH ×2 (08:52→21:57)
[2017-06-28] MEDS: LORATADINE 10 MG TAB PO SCH (08:52)
[2017-06-28] MEDS: FAMOTIDINE 20 MG TAB PO SCH ×2 (08:52→21:57)
[2017-06-28] MEDS: guaiFENesin 600 MG TABLET.ER PO SCH ×2 (08:52→21:57)
[2017-06-28] MEDS: DOXYCYCLINE 50 MG CAP PO SCH ×2 (08:52→21:57)
[2017-06-28] MEDS: methylPREDNISolone SOD SUCCI 125 MG/2 ML VIAL IV SCH (08:52)
[2017-06-28] MEDS ORDERED: predniSONE 20 MG TAB PO STA (09:36)
--- NOTE | 2017-06-28 09:38 | P.PN ---
Subjective Principal diagnosis: Assessment Acute exacerbation of moderate persistent asthma superimposed on underlying tracheal bronchomalacia and acute bronchitis. Patient presented with fevers which have since resolved, on antibiotic therapy with doxycycline, blood urine cultures are negative, sputum culture normal respiratory cookie Patient feeling much better today, since she's been ambulating in the halls urged to continue. Patient afebrile, having some stridors Minimal Wheezes, has vocal cord dysfunction, having productive cough Objective - Vital Signs Vital signs: Vital Signs Temp 97.0 F L 06/28/17 07:00 Pulse 60 06/28/17 07:00 Resp 18 06/28/17 07:00 BP 136/67 06/28/17 07:00 Pulse Ox 96 06/28/17 07:00 Intake & Output 06/27/17 06/28/17 06/28/17 18:59 06:59 18:59 Intake Total 160 Balance 160 Weight 129 kg Intake: Intake, IV Titration 160 Amount Sodium Chloride 0.9% 1, 160 000 ml @ 20 mls/hr IV . Q24H [facility] Rx#:[id number] Other: # Voids 3 - Exam Constitutional: No acute distress, conversant, pleasant Eyes: Anicteric sclerae, moist conjunctiva, no lid-lag, PERRLA ENMT: NC/AT,Oropharynx clear, no erythema, exudates Neck:Supple, FROM, no masses, or JVD, No carotid bruits; No thyromegaly Lungs: Good aeration, minimal chronic stridor Clear to percussion, Normal respiratory effort, no accessory muscle use Cardiovascular: Heart regular in rate and rhythm, No murmurs, gallops, or rubs no peripheral edema Abdominal: Soft Nontender, nom distended, no guarding, no rebound or rigidity, Normoactive bowel sounds No hepatomegaly, No splenomegaly, No palpable mass No abdominal wall hernia noted Skin: Normal temperature, tone, texture, turgor, No induration No subcutaneous nodules, No rash, lesions, No ulcers Extremities:No digital cyanosis No clubbing, Pedal pulses intact and symmetrical Radial pulses intact and symmetrical Normal gait and station, No calf tenderness Psychiatric: Alert and oriented to person, place and time, Appropriate affect Intact judgement Neuro: Muscles Strength 5/5 in all 4 extremities, Sensation to light touch grossly present throughout, Cranial nerves II-XII grossly intact. No focal sensory deficits - Labs CBC & Chem 7: 06/25/17 07:00 06/22/17 10:45 Labs: Abnormal Lab Results - Last 24 Hours (Table) 06/27/17 06/27/17 06/27/17 Range/Units 11:30 12:12 17:01 PT 14.5 H (9.0-12.0) sec INR 1.5 H (<1.2) POC Glucose (mg/dL) 116 H 152 H (75-99) mg/dL 06/27/17 06/28/17 Range/Units 21:04 07:30 PT (9.0-12.0) sec INR (<1.2) POC Glucose (mg/dL) 196 H 112 H (75-99) mg/dL Microbiology - Last 24 Hours (Table) 06/22/17 10:45 Blood Culture - Preliminary Blood No Growth after 120 hours Assessment and Plan (1) Acute exacerbation of chronic obstructive pulmonary disease (COPD) Narrative/Plan: Exacerbation of moderate persistent asthma complicated by purulent tracheobronchitis * Secondary to acute bronchitis, clinically stable with marked improvement discontinue Solu-Medrol and initiated oral prednisone therapy, continue scheduled and as needed breathing treatments * Continue with supplemental oxygen to keep sats 90- 92% on 3 L nasal cannula, continue Mucomyst QID to regimen. * Appreciated pulmonary team recommendations. Status: Acute (2) Acute bronchitis Narrative/Plan: Treatment as above Status: Acute (3) Congestive cardiac failure Status: Chronic (4) Tracheobronchomalacia Status: Acute (5) Coagulopathy Narrative/Plan: Resolved Coumadin Restarted yesterday Status: Acute (6) Fever Narrative/Plan: The patient was afebrile for past 3 days, urine and blood cultures of a negative sputum culture pending Status: Acute
--- NOTE | 2017-06-28 11:53 | P.PN ---
Subjective Progress note dated 06/26/2017 This is a 56-year-old female well-known to our service. She has history of severe chronic bronchial asthma vocal cord dysfunction tracheal bronchomalacia chronic atrial fibrillation sleep apnea syndrome obesity chronic systolic dysfunction generalized anxiety disorder. The patient still not feeling well. Was admitted on June 22. The patient continues To cough and produce yellow green phlegm. Has severe tracheobronchomalacia. The patient has no fever or chills. Not coughing up any blood. No chest pain or chest discomfort. No nausea vomiting or diarrhea. Progress note dated 06/28/2017 This is a 56-year-old female well-known to our service. She has a history of severe chronic bronchial asthma, vocal cord dysfunction, tracheobronchomalacia, chronic atrial fibrillation, sleep apnea syndrome, obesity, chronic systolic dysfunction, and generalized anxiety disorder. The patient is doing better. Her voice is stronger. Still has a very typical cough with tracheobronchomalacia. She does continue to produce phlegm which is yellow green. The patient is feeling better. Likely could be discharged home in a day or 2. No nausea vomiting or diarrhea. No chest pain or chest discomfort. Not coughing up any blood. Again seems to be about at her baseline. Objective - Vital Signs Vital signs: Vital Signs Temp 97.0 F L 06/28/17 07:00 Pulse 70 06/28/17 11:41 Resp 18 06/28/17 07:00 BP 136/67 06/28/17 07:00 Pulse Ox 96 06/28/17 07:00 Intake & Output 06/27/17 06/28/17 06/28/17 18:59 06:59 18:59 Intake Total 160 Balance 160 Weight 129 kg Intake: Intake, IV Titration 160 Amount Sodium Chloride 0.9% 1, 160 000 ml @ 20 mls/hr IV . Q24H [facility] Rx#:[id number] Other: # Voids 3 - Exam No acute distress, oriented 3. Frequent cough. Her cough sounds like summary with severe tracheobronchomalacia. HEENT examination is grossly unremarkable. Mucous membranes are moist. No oral lesions. Neck supple. Full range of motion. No adenopathy or thyromegaly. Neck veins are flat. Cardiovascular examination reveals regular rhythm rate. S1-S2 normal. No S3- S4 or murmur. Lungs reveals coarse rhonchi. Bilateral coarse wheezes This prolongation on forced maneuver. She wheezes and coughs on forced maneuver. Abdomen obese. Bowel sounds are heard. Extremities are intact. No cyanosis clubbing or edema. Skin is without rash. Neurologic examination is non-focal. - Labs CBC & Chem 7: 06/25/17 07:00 06/22/17 10:45 Labs: Abnormal Lab Results - Last 24 Hours (Table) 06/27/17 06/27/17 06/27/17 Range/Units 12:12 17:01 21:04 POC Glucose (mg/dL) 116 H 152 H 196 H (75-99) mg/dL 06/28/17 Range/Units 07:30 POC Glucose (mg/dL) 112 H (75-99) mg/dL Microbiology - Last 24 Hours (Table) 06/22/17 10:45 Blood Culture - Preliminary Blood No Growth after 120 hours Assessment and Plan (1) Acute bronchitis Status: Acute (2) Acute exacerbation of chronic obstructive airways disease Status: Acute (3) Bronchospasm Status: Acute (4) Asthma Status: Acute (5) Bronchitis Status: Acute (6) Deep vein thrombosis of lower extremity Status: Acute (7) Dyspnea Status: Acute (8) Hx of Clostridium difficile infection Status: Acute (9) Mucopurulent chronic bronchitis Status: Acute (10) Tracheobronchitis Status: Acute (11) Tracheobronchomalacia determined by bronchoscopy Status: Acute (12) Tracheomalacia Status: Acute (13) Stridor Status: Chronic Plan: Plan dated 06/26/2017 The patient seemed be doing a bit better. Probably needs a few more days here in the hospital. Ultimately she may need bronchoscopy with airway secretion removal. We'll assess over the next couple of days and see how she is coming along. She continues use CPAP. She should continue on bronchodilators antibiotic steroids and the like. Plan dated 06/28/2017 The patient is doing better. Probably will need another day or 2 in the hospital. I suspect could be discharged tomorrow. The patient could be discharged home on prednisone with a burst and taper. She'll need to follow with my partner, Dr. Feng in the outpatient setting. She should also be discharged home with some antibiotics. We'll continue to follow. Prognosis is guarded. She uses CPAP at nighttime. No additional recommendations are made. Time with Patient: Less than 30
[2017-06-28 12:13] LABS: Glucose,Whole Blood 113 mg/dL (75-99)
[2017-06-28] MEDS: SODIUM CHLORIDE 0.9% 1,000 ML IV SCH (12:37)
[2017-06-28] MEDS: MAGNESIUM OXIDE 400 MG TAB PO SCH (13:05)
[2017-06-28 15:30] VITALS: BMI 44.5
[2017-06-28 16:56] LABS: Glucose,Whole Blood 138 mg/dL (75-99)
[2017-06-28] MEDS: CHOLECALCIFEROL 1,000 UNIT TAB PO SCH (18:34)
[2017-06-28] MEDS: ASCORBIC ACID 500 MG TAB PO SCH (18:34)
[2017-06-28] MEDS: POTASSIUM CHLORIDE ER 20 MEQ TAB.ER PO SCH (18:34)
[2017-06-28] MEDS: CALCIUM CARB-VIT D 500MG-200UN 1 EACH TAB PO SCH (18:35)
[2017-06-28] MEDS: WARFARIN 5 MG TAB PO SCH (18:39)
[2017-06-28 21:22] LABS: Glucose,Whole Blood 174 mg/dL (75-99)
[2017-06-28] MEDS: MONTELUKAST 10 MG TAB PO SCH (21:57)
[2017-06-28] MEDS: CHLORPHEN-HYDROcod 8-10mg/5ml 5 ML ORAL.SYRG PO PRN (22:30)
[2017-06-29] MEDS: HYDROcodone/APAP 5-325MG 1 EACH TAB PO PRN (06:20)
[2017-06-29 07:20] LABS: Glucose,Whole Blood 78 mg/dL (75-99)
[2017-06-29] MEDS: FORMOTEROL FUMARATE 20 MCG/2 ML NEBU INHALATION SCH (07:26)
[2017-06-29] MEDS: ACETYLCYSTEINE 800 MG/4 ML VIAL INHALATION SCH (07:27)
[2017-06-29] MEDS: BUDESONIDE 0.5 MG/2 ML NEBU INHALATION SCH (07:27)
[2017-06-29 07:33] VITALS: BP 137/85; RESP 16; TEMP 97
[2017-06-29] MEDS: guaiFENesin 600 MG TABLET.ER PO SCH (07:52)
[2017-06-29] MEDS: FUROSEMIDE 40 MG TAB PO SCH (07:53)
[2017-06-29] MEDS: DOXYCYCLINE 50 MG CAP PO SCH (07:53)
[2017-06-29] MEDS: ALPRAZolam 0.5 MG TAB PO SCH (07:53)
[2017-06-29] MEDS: LORATADINE 10 MG TAB PO SCH (07:53)
[2017-06-29] MEDS: METOPROLOL TARTRATE 50 MG TAB PO SCH (07:53)
[2017-06-29] MEDS: FAMOTIDINE 20 MG TAB PO SCH (07:53)
[2017-06-29] MEDS: LEVOTHYROXINE 50 MCG TAB PO SCH (07:54)
[2017-06-29] MEDS: IPRATROPIUM-ALBUTEROL 3 ML NEB INHALATION SCH (07:55)
[2017-06-29 08:10] VITALS: PULSE 68
[2017-06-29] MEDS ORDERED: predniSONE 20 MG TAB PO SCH (09:00)
--- NOTE | 2017-06-29 10:47 | P.DS ---
Providers Date of admission: 06/22/17 12:07 Expected date of discharge: 06/29/17 Attending physician: DO Darrick Watson Reid MD Consults: 06/22/17 12:06 Consult Physician Routine Consulting Provider: Nadeen Feng Consult Reason/Comments: known Do you want consulting provider notified?: Yes Primary care physician: Russell Hinson - Discharge Diagnosis(es) (1) Acute exacerbation of chronic obstructive pulmonary disease (COPD) Current Visit: Yes Status: Acute Priority: High (2) Acute bronchitis Current Visit: Yes Status: Acute Priority: Medium (3) Congestive cardiac failure Current Visit: No Status: Chronic (4) Tracheobronchomalacia Current Visit: No Status: Acute (5) Coagulopathy Current Visit: Yes Status: Acute Priority: High (6) Fever Current Visit: No Status: Acute Hospital Course: The patient is a 56-year-old female that was admitted to the medical floor for an acute exacerbation of her severe persistent asthma, her exacerbation was complicated by chronic tracheobronchomalacia superimposed on acute on chronic intermittently purulent bronchitis underlying sleep apnea, she was placed on supplemental oxygen and started on systemic steroids with IV Solu-Medrol scheduled and when necessary bronchodilator breathing treatments and antibiotics with doxycycline. Dietary was consulted and the patient was seen by Dr. Winston. The patient stridors and wheezes gradually resolved with treatment And she returned back to her baseline with a chronic cough with productive sputum, given the fact that she had fevers sputum, blood and urine cultures were checked and were negative. The patient' s Coumadin had to be held due to coagulopathy as she had a supra therapeutic INR her Coumadin was eventuallyrestarted prior to discharge. She was subsequently discharged home in stable condition feeling much better with the prednisone taper, mucinex and a prescription for Doxycyline with scheduled follow up with Dr. Feng in one week. This discharge process took approximately 35 minutes Plan - Discharge Summary New Discharge Prescriptions: New Doxycycline [Vibramycin] 100 mg PO BID #14 cap guaiFENesin [Mucinex] 1,200 mg PO Q12HR #30 tab Continue EPINEPHrine (Auto Inject) [Epipen] 0.3 mg IM ONCE PRN PRN Reason: Anaphylaxis Ascorbic Acid [Vitamin C] 500 mg PO AC-SUPPER Albuterol Sulfate [Proair Hfa] 1 - 2 puff INHALATION RT-Q4H PRN PRN Reason: Shortness Of Breath Famotidine [Pepcid] 20 mg PO BID Zinc 50 mg PO AC-SUPPER Nystatin [Nystop] 1 applic TOPICAL Q12H PRN PRN Reason: Rash Calcium Carbonate/Vitamin D3 [Calcium 600-Vit D3 400 Tablet] 1 tab PO W/ SUPPER Ipratropium-Albuterol Nebulize [Duoneb 0.5 mg-3 mg/3 ml Soln] 3 ml INHALATION RT-QID ampul.neb Magnesium Oxide [Mag-Ox] 250 mg PO DAILY Cholecalciferol [Vitamin D3] 5,000 unit PO AC-SUPPER Potassium Chloride [Klor-Con 20] 20 meq PO W/SUPPER Furosemide [Lasix] 40 mg PO BID@0700,1500 ALPRAZolam [Xanax] 0.5 mg PO Q8H #90 tablet Warfarin [Coumadin] 5 mg PO SUMOTUWEFRSA Mometasone/Formoterol [Dulera 200 Mcg/5 Mcg Inhaler] 2 puff INHALATION RT-BID Montelukast [Singulair] 10 mg PO HS Cetirizine HCl [Zyrtec] 10 mg PO DAILY CHLORPHEN-HYDROcod 8-10mg/5ml [Tussionex] 5 ml PO Q12H PRN PRN Reason: Cough Levothyroxine Sodium [Synthroid] 50 mcg PO DAILY traMADol HCl [Ultram] 50 mg PO TID PRN PRN Reason: Pain hydrOXYzine HCL [Atarax] 50 mg PO Q6H PRN PRN Reason: HIVES Hydrocodone/Acetaminophen [Dauphin 5-325] 1 tab PO Q6HR PRN PRN Reason: Pain Nystatin 100,000 Unit/ml Susp [Mycostatin Oral Susp] 5 ml PO QID PRN PRN Reason: THRUSH Metoprolol Tartrate [Lopressor] 75 mg PO BID Orphenadrine Citrate 100 mg PO BID PRN PRN Reason: Muscle Spasm Warfarin [Coumadin] 7.5 mg PO TH Culturelle Probiotic 1 tab PO W/LUNCH Florastor Probiotic 1 tab PO BID Losartan Potassium [Cozaar] 50 mg PO DIRECTED Discharge Medication List Albuterol Sulfate [Proair Hfa] 1 - 2 puff INHALATION RT-Q4H PRN 04/11/14 [ History] Ascorbic Acid [Vitamin C] 500 mg PO AC-SUPPER 04/11/14 [History] EPINEPHrine (Auto Inject) [Epipen] 0.3 mg IM ONCE PRN 04/11/14 [History] Famotidine [Pepcid] 20 mg PO BID 04/11/14 [History] Zinc 50 mg PO AC-SUPPER 04/11/14 [History] Calcium Carbonate/Vitamin D3 [Calcium 600-Vit D3 400 Tablet] 1 tab PO W/SUPPER 12/08/14 [History] Nystatin [Nystop] 1 applic TOPICAL Q12H PRN 12/08/14 [History] Ipratropium-Albuterol Nebulize [Duoneb 0.5 mg-3 mg/3 ml Soln] 3 ml INHALATION RT -QID ampul.neb 12/15/14 [Rx] Magnesium Oxide [Mag-Ox] 250 mg PO DAILY 12/18/14 [History] Cholecalciferol [Vitamin D3] 5,000 unit PO AC-SUPPER 02/06/15 [History] Furosemide [Lasix] 40 mg PO BID@0700,1500 04/22/15 [History] Potassium Chloride [Klor-Con 20] 20 meq PO W/SUPPER 04/22/15 [History] ALPRAZolam [Xanax] 0.5 mg PO Q8H #90 tablet 05/11/15 [Rx] Mometasone/Formoterol [Dulera 200 Mcg/5 Mcg Inhaler] 2 puff INHALATION RT-BID [History] Warfarin [Coumadin] 5 mg PO SUMOTUWEFRSA 09/12/15 [History] Cetirizine HCl [Zyrtec] 10 mg PO DAILY 12/21/15 [History] Montelukast [Singulair] 10 mg PO HS 12/21/15 [History] CHLORPHEN-HYDROcod 8-10mg/5ml [Tussionex] 5 ml PO Q12H PRN 12/22/15 [History] Levothyroxine Sodium [Synthroid] 50 mcg PO DAILY 03/03/16 [History] hydrOXYzine HCL [Atarax] 50 mg PO Q6H PRN 03/03/16 [History] traMADol HCl [Ultram] 50 mg PO TID PRN 03/03/16 [History] Hydrocodone/Acetaminophen [Dauphin 5-325] 1 tab PO Q6HR PRN 01/09/17 [History] Metoprolol Tartrate [Lopressor] 75 mg PO BID 01/09/17 [History] Nystatin 100,000 Unit/ml Susp [Mycostatin Oral Susp] 5 ml PO QID PRN 01/09/17 [ History] Orphenadrine Citrate 100 mg PO BID PRN 01/09/17 [History] Warfarin [Coumadin] 7.5 mg PO TH 01/27/17 [History] Culturelle Probiotic 1 tab PO W/LUNCH 06/22/17 [History] Florastor Probiotic 1 tab PO BID 06/22/17 [History] Losartan Potassium [Cozaar] 50 mg PO DIRECTED 06/22/17 [History] Doxycycline [Vibramycin] 100 mg PO BID #14 cap 06/29/17 [Rx] guaiFENesin [Mucinex] 1,200 mg PO Q12HR #30 tab 06/29/17 [Rx] Follow up Appointment(s)/Referral(s): Nadeen Feng MD [STAFF PHYSICIAN] - 07/10/17 10:00 am Patient Instructions/Handouts: Heart Failure (DC), COPD (Chronic Obstructive Pulmonary Disease) (DC) Discharge Disposition: HOME SELF-CARE
--- NOTE | 2017-06-29 11:18 | P.PN ---
Subjective Progress note dated 06/26/2017 This is a 56-year-old female well-known to our service. She has history of severe chronic bronchial asthma vocal cord dysfunction tracheal bronchomalacia chronic atrial fibrillation sleep apnea syndrome obesity chronic systolic dysfunction generalized anxiety disorder. The patient still not feeling well. Was admitted on June 22. The patient continues To cough and produce yellow green phlegm. Has severe tracheobronchomalacia. The patient has no fever or chills. Not coughing up any blood. No chest pain or chest discomfort. No nausea vomiting or diarrhea. Progress note dated 06/28/2017 This is a 56-year-old female well-known to our service. She has a history of severe chronic bronchial asthma, vocal cord dysfunction, tracheobronchomalacia, chronic atrial fibrillation, sleep apnea syndrome, obesity, chronic systolic dysfunction, and generalized anxiety disorder. The patient is doing better. Her voice is stronger. Still has a very typical cough with tracheobronchomalacia. She does continue to produce phlegm which is yellow green. The patient is feeling better. Likely could be discharged home in a day or 2. No nausea vomiting or diarrhea. No chest pain or chest discomfort. Not coughing up any blood. Again seems to be about at her baseline. Progress note dated 06/29/2017 56-year-old female well-known to our service. She has a history of severe persistent chronic bronchial asthma, vocal cord dysfunction with stridor, severe tracheobronchomalacia, chronic atrial fibrillation, sleep apnea syndrome , obesity, chronic systolic dysfunction, and generalized anxiety disorder. The patient's doing much better. Much stronger voice. Breathing is much improved. Still has the typical cough with tracheobronchomalacia. So producing some phlegm when she coughs. She is ready for discharge though. I did tell her it was very important for her to follow up with Dr. Feng not next week as he is on-call next week but the following week after that. She should be discharged home on some prednisone with a taper and also some oral antibiotic. Typically for her prednisone outside off of 40 mg and continue that for about 4- 5 days, dropping the dose by 10 mg every fourth or fifth day. Objective - Vital Signs Vital signs: Vital Signs Temp 97.0 F L 06/29/17 07:00 Pulse 68 06/29/17 08:09 Resp 16 06/29/17 07:00 BP 137/85 06/29/17 07:00 Pulse Ox 99 06/29/17 07:32 Intake & Output 06/28/17 06/29/17 06/29/17 18:59 06:59 18:59 Intake Total 160 750 Balance 160 750 Weight 129 kg 129 kg Intake: Intake, IV Titration 160 Amount Sodium Chloride 0.9% 1, 160 000 ml @ 20 mls/hr IV . Q24H JAYNE Rx#:[id number] Oral 750 Other: # Voids 2 2 1 - Exam No acute distress, oriented 3. Frequent cough. Her cough sounds like summary with severe tracheobronchomalacia. HEENT examination is grossly unremarkable. Mucous membranes are moist. No oral lesions. Neck supple. Full range of motion. No adenopathy or thyromegaly. Neck veins are flat. Cardiovascular examination reveals regular rhythm rate. S1-S2 normal. No S3- S4 or murmur. Lungs reveals coarse rhonchi. Bilateral coarse wheezes This prolongation on forced maneuver. She wheezes and coughs on forced maneuver. Abdomen obese. Bowel sounds are heard. Extremities are intact. No cyanosis clubbing or edema. Skin is without rash. Neurologic examination is non-focal. - Labs CBC & Chem 7: 06/25/17 07:00 06/22/17 10:45 Labs: Abnormal Lab Results - Last 24 Hours (Table) 06/28/17 06/28/17 06/28/17 Range/Units 12:01 16:45 20:55 POC Glucose (mg/dL) 113 H 138 H 174 H (75-99) mg/dL Microbiology - Last 24 Hours (Table) 06/22/17 10:45 Blood Culture - Final Blood No Growth after 144 hours Assessment and Plan (1) Acute bronchitis Status: Acute (2) Acute exacerbation of chronic obstructive airways disease Status: Acute (3) Bronchospasm Status: Acute (4) Asthma Status: Acute (5) Bronchitis Status: Acute (6) Deep vein thrombosis of lower extremity Status: Acute (7) Dyspnea Status: Acute (8) Hx of Clostridium difficile infection Status: Acute (9) Mucopurulent chronic bronchitis Status: Acute (10) Tracheobronchitis Status: Acute (11) Tracheobronchomalacia determined by bronchoscopy Status: Acute (12) Tracheomalacia Status: Acute (13) Stridor Status: Chronic Plan: Plan dated 06/26/2017 The patient seemed be doing a bit better. Probably needs a few more days here in the hospital. Ultimately she may need bronchoscopy with airway secretion removal. We'll assess over the next couple of days and see how she is coming along. She continues use CPAP. She should continue on bronchodilators antibiotic steroids and the like. Plan dated 06/28/2017 The patient is doing better. Probably will need another day or 2 in the hospital. I suspect could be discharged tomorrow. The patient could be discharged home on prednisone with a burst and taper. She'll need to follow with my partner, Dr. Feng in the outpatient setting. She should also be discharged home with some antibiotics. We'll continue to follow. Prognosis is guarded. She uses CPAP at nighttime. No additional recommendations are made. Plan dated 06/29/2017. The patient could be discharged home. She could be discharged home on 40-50 mg of prednisone daily for about for 5 days, dropping the dose by 10 mg every fourth or fifth day. She's also be sent home with some oral antibiotic. I'll allow the primary service to decide that. She should follow up with Dr. Feng in about 7-10 days. In addition, when she gets home, she should resume the use of her CPAP for her sleep apnea syndrome. We will continue to follow her. She should have any issues or problems prior to her next appointment with Dr. Feng, she can call the office in one of us will see her. Dr. Feng is on-call next week would not be able to see her as a patient. Time with Patient: Less than 30
[2017-06-29 12:35] LABS: Glucose,Whole Blood 89 mg/dL (75-99)
--- NOTE | 2017-06-30 09:10 | CDI ---
In responding to this query, please exercise your independent professional judgment. The [facility] Coding Staff and Clinical Documentation Specialists appreciate your assistance in clarifying documentation, maintaining compliance with coding guidelines, accurately documenting patients condition and capturing severity of illness. The fact that a question is asked does not imply that any particular answer is desired or expected. Communication forms are a method of clarifying documentation and are not made part of the Legal Health Record. Thank you in advance for your clarification. Last Revision, December 2015 Alexander Bustos [address] [facility] [address] Documentation Clarification Form Date: 06/29/2017 11:59:00 AM From: Jessica Fernández, CCS, CCDS Admit Date: 06/22/2017 12:07:00 PM Patient Name: Eva Mcwilliams Visit Number: [id number] Discharge Date: 06/29/2017 Dr. Darrick Santos: The patient presented with the following respiratory symptoms: Stridor, wheezing and cough. The patient was treated for Acute Exacerbation of COPD, Acute bronchitis, Congestive cardiac failure and Tracheobronchomalacia. History/Risk Factors: Severe persistent asthma, CHF, COPD and recurrent bronchitis, TIA, ARAMIS, uses CPAP. Tobacco use: Non smoker. Clinical Indicators: VS: T 101.9, P 95, R 30, BP 159/76, PO 96 ra/98 8Lnc high flow. Lung/Breathing assessment: SOB, labored breathing, accessory muscle use, nasal flaring, deep breathing, tachypnea Treatment: Albuterol INH, Ipratropium INH, IV Ativan, IV Ms, IV fl rate 50, IV Solumedrol, IV Tylenol, IV Zofran, O2 high flow 2-8Lnc. (CPAP, uses at home) In your professional opinion, can you please clarify if these findings signify one of the following conditions? still Unable to determine Acuity: o Acute o Chronic o Acute on Chronic Respiratory Status: o Respiratory failure o Respiratory failure with hypercapnia o Respiratory failure with hypoxia o Acute Respiratory Distress o Other Diagnosis, please specify o Unable to determine Please document in your progress notes and discharge summary in order to capture severity of illness and risk of mortality. Include clinical findings that support your diagnosis. FYI: Press F11 to launch patient chart. MTDD
--- NOTE | 2017-07-06 10:11 | CDI ---
In responding to this query, please exercise your independent professional judgment. The [facility] Coding Staff and Clinical Documentation Specialists appreciate your assistance in clarifying documentation, maintaining compliance with coding guidelines, accurately documenting patients condition and capturing severity of illness. The fact that a question is asked does not imply that any particular answer is desired or expected. Communication forms are a method of clarifying documentation and are not made part of the Legal Health Record. Thank you in advance for your clarification. Last Revision, December 2015 Alexander Bustos [address] [facility] [place] [address] Documentation Clarification Form 2nd Request Date: 06/29/2017 11:59:00 AM From: Jessica Fernández CCA, CCDS Admit Date: 06/22/2017 12:07:00 PM Patient Name: Eva Mcwilliams Visit Number: [id number] Dr. Darrick Santos The patient presented with the following respiratory symptoms: Stridor, wheezing and cough. The patient was treated for Acute Exacerbation of COPD, Acute bronchitis, Congestive cardiac failure and Tracheobronchomalacia. History/Risk Factors: Asthma, CHF, COPD and recurrent bronchitis, TIA, ARAMIS, uses CPAP. Tobacco use: Non smoker. Clinical Indicators: VS: T 101.9, P 95, R 30, BP 159/76, PO 96 ra/98 8Lnc high flow. Lung/Breathing assessment: SOB, labored breathing, accessory muscle use, nasal flaring, deep breathing, tachypnea Treatment: Albuterol INH, Ipratropium INH, IV Ativan, IV Ms, IV fl rate 50, IV Solumedrol, IV Tylenol, IV Zofran, O2 high flow 2-8Lnc. (CPAP, uses at home) In your professional opinion, can you please clarify if these findings signify one of the following conditions? Unable to determine, for further questions please forward to pulmonology that was following the patient. Thanks Acuity: o Acute o Chronic o Acute on Chronic Respiratory Status: o Respiratory failure o Respiratory failure with hypercapnia o Respiratory failure with hypoxia o Acute Respiratory Distress o Other Diagnosis, please specify o Unable to determine Please document in your progress notes and discharge summary in order to capture severity of illness and risk of mortality. Include clinical findings that support your diagnosis. FYI: Press F11 to launch patient chart. MTDD
--- NOTE | 2017-07-11 08:35 | CDI ---
In responding to this query, please exercise your independent professional judgment. The [facility] Coding Staff and Clinical Documentation Specialists appreciate your assistance in clarifying documentation, maintaining compliance with coding guidelines, accurately documenting patients condition and capturing severity of illness. The fact that a question is asked does not imply that any particular answer is desired or expected. Communication forms are a method of clarifying documentation and are not made part of the Legal Health Record. Thank you in advance for your clarification. Last Revision, December 2015 Alexander Bustos [address] [facility] [place] [address] Documentation Clarification Form Date: 06/29/2017 11:59:00 AM From: Jessica Fernández CCS, CCDS Admit Date: 06/22/2017 12:07:00 PM Patient Name: Eva Mcwilliams Visit Number: [id number] Discharge Date: 06/29/2017 Dr. Funmilayo Rodriguez: The patient presented with the following respiratory symptoms: Stridor, wheezing and cough. The patient was treated for Acute Exacerbation of COPD, Acute bronchitis, Congestive cardiac failure and Tracheobronchomalacia. History/Risk Factors: Asthma, CHF, COPD and recurrent bronchitis, TIA, ARAMIS, uses CPAP. Tobacco use: Non smoker. Clinical Indicators: VS: T 101.9, P 95, R 30, BP 159/76, PO 96 ra/98 8Lnc high flow. Lung/Breathing assessment: SOB, labored breathing, accessory muscle use, nasal flaring, deep breathing, tachypnea Treatment: Albuterol INH, Ipratropium INH, IV Ativan, IV Ms, IV fl rate 50, IV Solumedrol, IV Tylenol, IV Zofran, O2 high flow 2-8Lnc. (CPAP, uses at home) In your professional opinion, can you please clarify if these findings signify one of the following conditions? Acuity: o Acute o Chronic o Acute on Chronic Respiratory Status: o Respiratory failure with hypercapnia o Respiratory failure with hypoxia o Acute Respiratory Distress o Other Diagnosis, please specify o Unable to determine Please document in your progress notes and discharge summary in order to capture severity of illness and risk of mortality. Include clinical findings that support your diagnosis. FYI: Press F11 to launch patient chart. CECILIO
--- NOTE | 2017-07-11 09:19 | P.PN ---
Progress Note - Text patient had acute hypoxic respiratory failure secondary to acute severe asthma exacebation
== END 2017-06-29 13:24 | disposition home or self-care (01) | DRG 190 ==
LOC: EC 10:28 → 4MS4W 12:07
PROVIDERS: ADMIT Internal Medicine; ATTEND Internal Medicine
DX: J44.1 Chronic obstructive pulmonary disease with (acute) exacerbation (principal); J96.01 Acute respiratory failure with hypoxia; I50.22 Chronic systolic (congestive) heart failure; I11.0 Hypertensive heart disease with heart failure; J45.51 Severe persistent asthma with (acute) exacerbation; E66.01 Morbid (severe) obesity due to excess calories; E24.2 Drug-induced Cushing's syndrome; I48.2 Chronic atrial fibrillation; J44.0 Chronic obstructive pulmonary disease with (acute) lower respiratory infection; E03.9 Hypothyroidism, unspecified; J20.9 Acute bronchitis, unspecified; K21.9 Gastro-esophageal reflux disease without esophagitis; R79.1 Abnormal coagulation profile; J98.09 Other diseases of bronchus, not elsewhere classified; J39.8 Other specified diseases of upper respiratory tract; M41.9 Scoliosis, unspecified; R11.0 Nausea; T38.0X5S Adverse effect of glucocorticoids and synthetic analogues, sequela; J38.3 Other diseases of vocal cords; R50.9 Fever, unspecified; D72.829 Elevated white blood cell count, unspecified; F41.1 Generalized anxiety disorder; G47.33 Obstructive sleep apnea (adult) (pediatric); Z86.73 Personal history of transient ischemic attack (TIA), and cerebral infarction without residual deficits; Z82.49 Family history of ischemic heart disease and other diseases of the circulatory system; Z79.899 Other long term (current) drug therapy; Z79.01 Long term (current) use of anticoagulants; Z86.19 Personal history of other infectious and parasitic diseases; Z86.718 Personal history of other venous thrombosis and embolism; Z80.3 Family history of malignant neoplasm of breast; Z82.3 Family history of stroke; Z80.8 Family history of malignant neoplasm of other organs or systems; Z90.49 Acquired absence of other specified parts of digestive tract; Z98.51 Tubal ligation status; Z86.79 Personal history of other diseases of the circulatory system; Z86.010 Personal history of colon polyps; Z87.19 Personal history of other diseases of the digestive system; Z87.09 Personal history of other diseases of the respiratory system; Z71.3 Dietary counseling and surveillance; Z79.891 Long term (current) use of opiate analgesic; Z88.1 Allergy status to other antibiotic agents; Z91.011 Allergy to milk products; Z91.010 Allergy to peanuts; Z88.2 Allergy status to sulfonamides; Z88.8 Allergy status to other drugs, medicaments and biological substances; Z91.018 Allergy to other foods; Z63.79 Other stressful life events affecting family and household; Z51.81 Encounter for therapeutic drug level monitoring
CPT/HCPCS: 36415; 71010; 80053; 81003; 82550; 82553; 83605; 83735; 83880; 84484; 85025; 85610; 85730; 87040; 87070; 87205; 93005; 94640; 94645; 94760; 96361; 96374; 96375; 99285

== ENCOUNTER 2017-09-10 11:28 | Emergency (ER) | payer BC ==
[2017-09-10] MEDS ORDERED: ONDANSETRON 4 MG/2 ML VIAL IVP STA (12:08)
[2017-09-10] MEDS ORDERED: HYDROmorphone 1 MG/ML 1 ML SYRINGE IVP STA ×2 (12:08→14:46)
[2017-09-10] MEDS ORDERED: SODIUM CHLORIDE 0.9% 1,000 ML IV STA (12:08)
[2017-09-10] MEDS ORDERED: RX INFO: IV CONTRAST WAS GIVEN 1 EACH MISC MISCELLANE PRN (12:08)
--- NOTE | 2017-09-10 12:27 | ED ---
General Adult HPI - General Chief complaint: Nausea/Vomiting/Diarrhea Stated complaint: diarrhea, nausea, headache, cold sweats Time Seen by Provider: 09/10/17 11:52 Source: patient, RN notes reviewed Mode of arrival: wheelchair Limitations: no limitations - History of Present Illness Initial comments: 56-year-old female presents to the emergency department with chief complaint of nausea vomiting and diarrhea. Patient started having nausea and vomiting at 8: 00. Patient proceeded to have diarrhea this morning. She states she has diffuse abdominal discomfort. There is been no fever chills. She does have a history of C. diff in the past. They were concerned due to the fact that she is not feeling much better so they thought that they should be evaluated. She denies any cough cold Raynaud's. She denies any new or different foods. Patient denies any recent fever, chills, shortness of breath, chest pain, back pain, numbness or tingling, dysuria or hematuria, constipation, headaches or visual changes, or any other current symptoms. - Related Data Home Medications Medication Instructions Recorded Confirmed Albuterol Sulfate [Proair Hfa] 1 - 2 puff INHALATION RT-Q4H PRN 04/11/14 Ascorbic Acid [Vitamin C] 500 mg PO DAILY 04/11/14 09/10/17 EPINEPHrine (Auto Inject) [Epipen] 0.3 mg IM ONCE PRN 04/11/14 09/10/17 Famotidine [Pepcid] 20 mg PO BID 04/11/14 09/10/17 Zinc 50 mg PO DAILY 04/11/14 09/10/17 Calcium Carbonate/Vitamin D3 1 tab PO DAILY 12/08/14 09/10/17 [Calcium 600-Vit D3 400 Tablet] Nystatin [Nystop] 1 applic TOPICAL Q12H PRN 12/08/14 09/10/17 Magnesium Oxide [Mag-Ox] 250 mg PO DAILY 12/18/14 09/10/17 Furosemide [Lasix] 40 mg PO BID@0700,1500 04/22/15 09/10/17 Potassium Chloride [Klor-Con 20] 20 meq PO W/SUPPER 04/22/15 09/10/17 Mometasone/Formoterol [Dulera 200 2 puff INHALATION RT-BID 11/28/15 11/26/17 Mcg/5 Mcg Inhaler] Warfarin [Coumadin] 5 mg PO SUMOTUWEFRSA 09/12/15 09/10/17 Cetirizine HCl [Zyrtec] 10 mg PO DAILY 12/21/15 09/10/17 Montelukast [Singulair] 10 mg PO HS 12/21/15 09/10/17 CHLORPHEN-HYDROcod 8-10mg/5ml 5 ml PO Q12H PRN 12/22/15 09/10/17 [Tussionex] Levothyroxine Sodium [Synthroid] 50 mcg PO DAILY 03/03/16 09/10/17 Metoprolol Tartrate [Lopressor] 75 mg PO BID 01/09/17 09/10/17 Nystatin 100,000 Unit/ml Susp 5 ml PO QID PRN 01/09/17 09/10/17 [Mycostatin Oral Susp] Warfarin [Coumadin] 7.5 mg PO TH 01/27/17 09/10/17 Florastor Probiotic 1 tab PO BID 06/22/17 09/10/17 Losartan Potassium [Cozaar] 50 mg PO DAILY 06/22/17 09/10/17 Cholecalciferol [Vitamin D3] 5,000 unit PO DAILY 09/10/17 09/10/17 L. Rhamnosus GG/Inulin [Culturelle 1 tab PO DAILY 09/10/17 09/10/17 Chewable Tablet] L.acidoph,Paracasei, B.lactis 1 cap PO DAILY 09/10/17 09/10/17 [Probiotic] Previous Rx's Medication Instructions Recorded Ipratropium-Albuterol Nebulize 3 ml INHALATION RT-QID ampul.neb 12/15/14 [Duoneb 0.5 mg-3 mg/3 ml Soln] ALPRAZolam [Xanax] 0.5 mg PO Q8H #90 tablet 05/11/15 Dicyclomine [Bentyl] 10 mg PO TID #20 capsule 09/10/17 Ondansetron Odt [Zofran ODT] 4 mg PO Q8HR PRN #20 tab 09/10/17 Allergies Allergy/AdvReac Type Severity Reaction Status Date / Time Aminoglycosides Allergy Unknown Verified 09/10/17 13:45 honey Allergy Anaphylaxis Verified 09/10/17 13:45 moxifloxacin HCl Allergy Unknown Verified 09/10/17 13:45 [From Avelox] peanut Allergy Unknown Verified 09/10/17 13:45 azithromycin [From Zithromax] AdvReac Nausea & Verified 09/10/17 13:45 Vomiting & Diarrhea clindamycin AdvReac Dyspnea Verified 09/10/17 13:45 corn syrup AdvReac Nausea Verified 09/10/17 13:45 lactose AdvReac Nausea Verified 09/10/17 13:45 levofloxacin [From Levaquin] AdvReac Dyspnea Verified 09/10/17 13:45 neomycin [Neomycin] AdvReac Dyspnea Verified 09/10/17 13:45 omalizumab [From Xolair] AdvReac Dyspnea Verified 09/10/17 13:45 sulfamethoxazole AdvReac Diarrhea/co Verified 09/10/17 13:45 [From Bactrim] litis trimethoprim [From Bactrim] AdvReac Diarrhea/co Verified 09/10/17 13:45 litis Review of Systems ROS Statement: Those systems with pertinent positive or pertinent negative responses have been documented in the HPI. ROS Other: All systems not noted in ROS Statement are negative. Past Medical History Past Medical History: Asthma, Heart Failure, COPD, CVA/TIA, GERD/Reflux, Hypertension, Sleep Apnea/CPAP/BIPAP, Thyroid Disorder Additional Past Medical History / Comment(s): Uses CPAP. Recurrent bronchitis. Chronic TRACHEOBRONCHOMALCIA. CHF with systolic dysfunction and EF of 40-45%. TACHYCARDIA. SCOLIOSIS. vocal cord dysfunction. Syncopy with TIA.c-diff 04-22-15 colitis, difficulty swallowing large pills and needs meat chopped up History of Any Multi-Drug Resistant Organisms: C-DIFF Date of last positivie culture/infection: 04/22/15 MDRO Source:: stool Past Surgical History: Cholecystectomy, Heart Catheterization, Orthopedic Surgery, Tubal Ligation, Uterine Ablation Additional Past Surgical History / Comment(s): HEART CATH. BREAST BIOPSY-NEG. COLON POLYP - NEG. D&C. BILATERAL KNEE. NECK CYST. BOWEL RESECTION. VOCAL CORD. BRONCHOSCOPY 3-6-15 PER PT FOUND HERPES SIMPLES BLISTERS IN LUNGS. HAS HAD 15 BRONCHS.rt arm tendon sx Past Anesthesia/Blood Transfusion Reactions: Postoperative Nausea & Vomiting ( PONV) Additional Past Anesthesia/Blood Transfusion Reaction / Comment(s): Pt has never recieved blood. Past Psychological History: Anxiety Smoking Status: Never smoker Past Alcohol Use History: None Reported Past Drug Use History: None Reported - Past Family History Father Family Medical History: Cancer, Congestive Heart Failure (CHF), CVA/TIA, Myocardial Infarction (RI), Prostate Disorder Additional Family Medical History / Comment(s): at age 84- chocked on a hot dog Mother Family Medical History: Cancer, Osteoarthritis (OA) Additional Family Medical History / Comment(s): mom is 84 breast ca surviver. General Exam - General Exam Comments Initial Comments: General: The patient is awake and alert, in no distress, and does not appear acutely ill. Eye: Pupils are equal, round and reactive to light, extra-ocular movements are intact; there is normal conjunctiva bilaterally. No signs of icterus. Ears, nose, mouth and throat: There are moist mucous membranes. Neck: The neck is supple, there is no tenderness. Cardiovascular: There is a regular rate and rhythm. No murmur, rub or gallop is appreciated. Respiratory: Lungs are clear to auscultation, respirations are non-labored, breath sounds are equal. No wheezes, stridor, rales, or rhonchi. Gastrointestinal: Soft, non-distended, diffusely mildly tender abdomen without masses or organomegaly noted. There is no rebound or guarding present. No CVA tenderness. Bowel sounds are unremarkable. Back: There is no tenderness to palpation in the midline. There is no obvious deformity. No rashes noted. Musculoskeletal: Normal ROM, no tenderness, There is no pedal edema. There is no calf tenderness or swelling. Sensation intact. Pulses equal bilaterally 2+. Neurological: CN II-XII intact, There are no obvious motor or sensory deficits. Coordination appears grossly intact. Speech is normal. Skin: Skin is warm and dry and no rashes or lesions are noted. Psychiatric: Cooperative, appropriate mood & affect, normal judgment. Limitations: no limitations Course Vital Signs 09/10/17 09/10/17 09/10/17 11:37 13:59 14:27 Temperature 99.3 F Pulse Rate 94 96 97 Respiratory 20 18 16 Rate Blood Pressure 126/79 156/79 147/76 O2 Sat by Pulse 96 95 96 Oximetry Medical Decision Making - Medical Decision Making 56-year-old female presents emergency department with chief complaint abdominal pain nausea vomiting and diarrhea. This time CAT scan is reviewed and lab work. At this time patient does appear to have most likely gastroenteritis. Discussed other etiologies. She does receive an maxillary for nausea meds and Bentyl for home. We discussed care follow-up return parameters and all questions. She stated that she understood and she is in agreement this plan. This time patient will be discharged. - Lab Data Result diagrams: 09/10/17 13:20 09/10/17 13:20 Lab Results 09/10/17 09/10/17 09/10/17 Range/Units 12:27 13:20 13:20 WBC 9.6 (3.8-10.6) k/uL RBC 4.45 (3.80-5.40) m/uL Hgb 13.2 (11.4-16.0) gm/dL Hct 40.9 (34.0-46.0) % MCV 92.0 (80.0-100.0) fL MCH 29.6 (25.0-35.0) pg MCHC 32.1 (31.0-37.0) g/dL RDW 16.0 H (11.5-15.5) % Plt Count 217 (150-450) k/uL Neutrophils % 74 % Lymphocytes % 17 % Monocytes % 6 % Eosinophils % 2 % Basophils % 0 % Neutrophils # 7.2 (1.3-7.7) k/uL Lymphocytes # 1.6 (1.0-4.8) k/uL Monocytes # 0.6 (0-1.0) k/uL Eosinophils # 0.2 (0-0.7) k/uL Basophils # 0.0 (0-0.2) k/uL PT (9.0-12.0) sec INR (<1.2) APTT (22.0-30.0) sec Sodium 141 (137-145) mmol/L Potassium 4.2 (3.5-5.1) mmol/L Chloride 108 H (98-107) mmol/L Carbon Dioxide 25 (22-30) mmol/L Anion Gap 8 mmol/L BUN 18 H (7-17) mg/dL Creatinine 0.96 (0.52-1.04) mg/dL Est GFR (MDRD) Af Amer >60 (>60 ml/min/1.73 sqM) Est GFR (MDRD) Non-Af >60 (>60 ml/min/1.73 sqM) Glucose 97 (74-99) mg/dL Plasma Lactic Acid Seth (0.7-2.0) mmol/L Calcium 8.8 (8.4-10.2) mg/dL Total Bilirubin 1.4 H (0.2-1.3) mg/dL AST 92 H (14-36) U/L ALT 67 H (9-52) U/L Alkaline Phosphatase 134 H (38-126) U/L Total Protein 6.6 (6.3-8.2) g/dL Albumin 3.6 (3.5-5.0) g/dL Amylase 53 (30-110) U/L Lipase 81 (23-300) U/L C. difficile (EIA) Intrp Negative (Negative) 09/10/17 09/10/17 Range/Units 13:20 13:20 WBC (3.8-10.6) k/uL RBC (3.80-5.40) m/uL Hgb (11.4-16.0) gm/dL Hct (34.0-46.0) % MCV (80.0-100.0) fL MCH (25.0-35.0) pg MCHC (31.0-37.0) g/dL RDW (11.5-15.5) % Plt Count (150-450) k/uL Neutrophils % % Lymphocytes % % Monocytes % % Eosinophils % % Basophils % % Neutrophils # (1.3-7.7) k/uL Lymphocytes # (1.0-4.8) k/uL Monocytes # (0-1.0) k/uL Eosinophils # (0-0.7) k/uL Basophils # (0-0.2) k/uL PT 35.3 H (9.0-12.0) sec INR 3.6 H (<1.2) APTT 36.5 H (22.0-30.0) sec Sodium (137-145) mmol/L Potassium (3.5-5.1) mmol/L Chloride (98-107) mmol/L Carbon Dioxide (22-30) mmol/L Anion Gap mmol/L BUN (7-17) mg/dL Creatinine (0.52-1.04) mg/dL Est GFR (MDRD) Af Amer (>60 ml/min/1.73 sqM) Est GFR (MDRD) Non-Af (>60 ml/min/1.73 sqM) Glucose (74-99) mg/dL Plasma Lactic Acid Seth 0.7 (0.7-2.0) mmol/L Calcium (8.4-10.2) mg/dL Total Bilirubin (0.2-1.3) mg/dL AST (14-36) U/L ALT (9-52) U/L Alkaline Phosphatase (38-126) U/L Total Protein (6.3-8.2) g/dL Albumin (3.5-5.0) g/dL Amylase (30-110) U/L Lipase (23-300) U/L C. difficile (EIA) Intrp (Negative) - Radiology Data Radiology results: report reviewed, image reviewed Disposition Clinical Impression: Nausea & vomiting, Diarrhea Disposition: HOME SELF-CARE Condition: Stable Instructions: Acute Nausea and Vomiting (ED) Additional Instructions: Please use medication as discussed. Please follow up with family doctor if symptoms have not improved over the next two days. Please return to the emergency room if your symptoms increase or worsen or for any other concerns. Prescriptions: Dicyclomine [Bentyl] 10 mg PO TID #20 capsule Ondansetron Odt [Zofran ODT] 4 mg PO Q8HR PRN #20 tab PRN Reason: Nausea Referrals: Russell Hinson MD [Primary Care Provider] - 1-2 days Time of Disposition: 14:47
[2017-09-10 13:45] LABS: Basophils % (A) 0 %; CH 30.3; CHCM 33.1; Eosinophils # (A) 0.2 k/uL (0-0.7); Eosinophils % (A) 2 %; HCT 40.9 % (34.0-46.0); HGB 13.2 gm/dL (11.4-16.0); Luc # (Auto) 0.09; Luc % (Auto) 1; Lymphocytes # (A) 1.6 k/uL (1.0-4.8); Lymphocytes % (A) 17 %; MCH 29.6 pg (25.0-35.0); MCHC 32.1 g/dL (31.0-37.0); Mean Platelet Volume 8.1; Monocytes # (A) 0.6 k/uL (0-1.0); Monocytes % (A) 6 %; Neutrophils # (A) 7.2 k/uL (1.3-7.7); Neutrophils % (A) 74 %; RBC 4.45 m/uL (3.80-5.40); WBC 9.6 k/uL (3.8-10.6); WBC (Perox) 9.65
[2017-09-10] MEDS ORDERED: HYDROmorphone 0.5 MG/0.5 ML SYRINGE IM STA (13:53)
[2017-09-10 13:57] LABS: ALT 67 U/L (9-52); AST 92 U/L (14-36); Alkaline Phosphatase 134 U/L (38-126); Amylase 53 U/L (30-110); Anion Gap 8 mmol/L; Blood Urea Nitrogen 18 mg/dL (7-17); Calcium 8.8 mg/dL (8.4-10.2); Carbon Dioxide 25 mmol/L (22-30); Chloride 108 mmol/L (98-107); Glucose 97 mg/dL (74-99); Non-African American GFR(MDRD) >60 (>60 ml/min/1.73 sqM); Potassium 4.2 mmol/L (3.5-5.1); Sodium 141 mmol/L (137-145); Total Bilirubin 1.4 mg/dL (0.2-1.3); Total Protein 6.6 g/dL (6.3-8.2)
[2017-09-10 14:21] LABS: INR 3.6 (<1.2); Partial Thromboplastin Time 36.5 sec (22.0-30.0); Prothrombin Time 35.3 sec (9.0-12.0)
--- NOTE | 2017-09-10 14:33 | CT ---
EXAMINATION TYPE: CT abdomen pelvis w con DATE OF EXAM: 09/10/2017 COMPARISON: September 18, 2015 HISTORY: Diarrhea, nausea and fever. CT DLP: 2760.7 mGycm CONTRAST: CT scan of the abdomen and pelvis is performed without Oral Contrast and with IV Contrast, patient in jected with 100 mL of Omnipaque 300. FINDINGS: LUNG BASES-: No visible nodule. No infiltrate. LIVER/GB: No space occupying hepatic lesion. Biliary tree is of normal caliber. There is evidence of hepatic steatosis. Cholecystectomy clips are in place. PANCREAS: No inflammation. No distinct mass. SPLEEN: No splenic enlargement. No lesion seen. ADRENALS: No nodule. No thickening. KIDNEYS/BLADDER: No hydronephrosis. No nephrolithiasis. No distinct renal mass. Urinary bladder gr ossly unremarkable. BOWEL: Normal appendix. Fluid distended small and large bowel may be related to enteritis. Correlate clinically. No inflammation. No evidence for free fluid or free air. GENITAL ORGANS: No gross abnormality. LYMPH NODES: No greater than 1cm abdominal or pelvic lymph nodes are appreciated. AORTA: No significant abnormality. OSSEOUS STRUCTURES: No significant abnormality is seen. OTHER: No significant additional abnormality is seen. IMPRESSION: 1. Correlate for gastroenteritis.
[2017-09-10] MEDS ORDERED: DICYCLOMINE 10 MG/ML 2 ML AMP IM STA (14:46)
[2017-09-10] MEDS ORDERED: HYDROmorphone 0.5 MG/0.5 ML SYRINGE IVP STA (14:56)
[2017-09-10 15:00] VITALS: BP 142/69; PULSE 93; RESP 18
[2017-09-10 15:12] VITALS: TEMP 98.2
== END 2017-09-10 15:12 | disposition home or self-care (01) ==
LOC: EC 11:28
DX: R11.2 Nausea with vomiting, unspecified (principal); R19.7 Diarrhea, unspecified; J44.9 Chronic obstructive pulmonary disease, unspecified; K21.9 Gastro-esophageal reflux disease without esophagitis; F41.9 Anxiety disorder, unspecified; I11.0 Hypertensive heart disease with heart failure; I50.9 Heart failure, unspecified; E07.9 Disorder of thyroid, unspecified; Z86.73 Personal history of transient ischemic attack (TIA), and cerebral infarction without residual deficits; Z90.49 Acquired absence of other specified parts of digestive tract; Z53.8 Procedure and treatment not carried out for other reasons; Z91.018 Allergy to other foods; Z88.1 Allergy status to other antibiotic agents; Z88.8 Allergy status to other drugs, medicaments and biological substances; Z88.2 Allergy status to sulfonamides; Z91.010 Allergy to peanuts; Z79.01 Long term (current) use of anticoagulants; Z79.899 Other long term (current) drug therapy
CPT/HCPCS: 36415; 80053; 82150; 83605; 83690; 85025; 85610; 85730; 87040; 87324; 74177; 99284; 96372 ×2; 96374; 96375; J0500; J2405; Q9967; J1170

== ENCOUNTER → 2017-12-25 | Outpatient (CLI) | payer BC ==
[2017-12-25 16:54] LABS: T4, Free (Free Thyroxine) 1.09 ng/dL (0.78-2.19)
== END | disposition home or self-care (01) ==
LOC: LABWHC1 15:57
PROVIDERS: ATTEND Internal Medicine Interventional Cardiology
DX: I42.9 Cardiomyopathy, unspecified (principal)
CPT/HCPCS: 36415; 84439; 84443

== ENCOUNTER → 2017-12-26 | Outpatient (CLI) | payer BC ==
[2017-12-26 16:40] LABS: INR 2.4 (<1.2)
== END | disposition home or self-care (01) ==
LOC: LABWHC1 15:33
PROVIDERS: ATTEND Internal Medicine
DX: Z09 Encounter for follow-up examination after completed treatment for conditions other than malignant neoplasm (principal); Z86.718 Personal history of other venous thrombosis and embolism
CPT/HCPCS: 36415; 85610

== ENCOUNTER → 2018-02-20 | Outpatient (CLI) | payer BC ==
[2018-02-20 12:12] LABS: Basophils % (A) 1 %; Eosinophils # (A) 0.2 k/uL (0-0.7); Eosinophils % (A) 3 %; HCT 40.9 % (34.0-46.0); HGB 13.7 gm/dL (11.4-16.0); Lymphocytes # (A) 3.4 k/uL (1.0-4.8); Lymphocytes % (A) 46 %; MCH 29.3 pg (25.0-35.0); MCHC 33.5 g/dL (31.0-37.0); MCV 87.4 fL (80.0-100.0); Mean Platelet Volume 7.8; Monocytes # (A) 0.4 k/uL (0-1.0); Monocytes % (A) 5 %; Neutrophils # (A) 3.2 k/uL (1.3-7.7); Neutrophils % (A) 42 %; Platelet Count 235 k/uL (150-450); RBC 4.69 m/uL (3.80-5.40); RDW 14.3 % (11.5-15.5); WBC 7.5 k/uL (3.8-10.6)
[2018-02-20 12:13] LABS: INR 2.6 (<1.2); Prothrombin Time 23.6 sec (9.0-12.0)
== END | disposition home or self-care (01) ==
LOC: LABWHC1 11:24
PROVIDERS: ATTEND Internal Medicine
DX: I48.1 Persistent atrial fibrillation (principal)
CPT/HCPCS: 36415; 85025; 85610

== ENCOUNTER → 2018-04-10 | Outpatient (CLI) | payer BC ==
[2018-04-10 15:18] LABS: INR 2.2 (<1.2); Prothrombin Time 19.9 sec (9.0-12.0)
== END | disposition home or self-care (01) ==
LOC: LABWHC1 14:39
PROVIDERS: ATTEND Internal Medicine
DX: I48.1 Persistent atrial fibrillation (principal)
CPT/HCPCS: 36415; 85610

== ENCOUNTER → 2018-06-27 | Outpatient (CLI) | payer BC ==
--- NOTE | 2018-06-29 09:39 | MM ---
Reason for exam: screening (asymptomatic). Last mammogram was performed 2 years and 6 months ago. History: Family history of breast cancer in mother at age 60. Cancelled Left Mammotome of the left breast, March 19, 2013. Benign ultrasound-guided FNA biopsy of the left breast, October 02, 2007. Benign US left CoreBiopsy of both breasts, October 02, 2007. Physical Findings: A clinical breast exam by your physician is recommended on an annual basis and results should be correlated with mammographic findings. MG Screening Mammo w CAD Bilateral CC and MLO view(s) were taken. Prior study comparison: January 08, 2016, bilateral MG 3d screening mammo w/cad. March 07, 2013, [facility] DIGITAL BILATERAL MAMMOGRAM w/CAD. There are scattered fibroglandular densities. Previous mammotome biopsy in the left breast. No significant changes when compared with prior studies. ASSESSMENT: Negative, BI-RAD 1 RECOMMENDATION: Routine screening mammogram of both breasts in 1 year.
== END | disposition home or self-care (01) ==
LOC: RADMAMWWP 14:51
PROVIDERS: ATTEND Internal Medicine
DX: Z12.31 Encounter for screening mammogram for malignant neoplasm of breast (principal)
CPT/HCPCS: 77067

== ENCOUNTER → 2018-10-23 | Outpatient (CLI) | payer OTHER ==
--- NOTE | 2018-10-23 18:09 | PN ---
PROGRESS NOTE Eva is coming in for an annual check regarding obstructive sleep apnea. She had a CPAP unit which is set at a pressure of 12 cm of water. Since her last evaluation, the patient has lost weight. She used to weigh 283, and she is currently down to 259. She is having some difficulty tolerating the CPAP pressure at the level of 12 and she is asking for the pressure to be lowered slightly. She is using a DreamWear fullface mask and she also had an AirFit S20 medium size. I treated the patient recently for symptoms of bronchitis and currently she is completing a course of Augmentin and a prednisone burst taper. Cough subsided. No major shortness of breath. She is averaging around 7 hours of sleep per night. Waking up refreshed and alert during the day as long as she uses the CPAP unit. No other complaints otherwise for now. PHYSICAL EXAMINATION: BP is 144/95, pulse 89, respirations 16, temperature 98.7. Saturation 95% on room air. Weight is 259. Height is 5 feet 6 inches, BMI is 41, [place]o score is at 20. GENERAL APPEARANCE: Calm, comfortable. HEENT: Head is atraumatic, normocephalic. NECK is supple. There is no JVD. No goiter. Neck masses. LUNGS: Diminished scattered expiratory wheezing throughout lung raphael bilaterally. CARDIOVASCULAR: Heart sounds are regular rate and rhythm. Normal S1, S2. No S3. No murmurs. ABDOMEN is soft, nontender. No organomegaly. EXTREMITIES: No edema. No cyanosis or clubbing. NEUROLOGIC: Alert and oriented x3. No focal neurological deficits. PSYCHIATRIC: Negative for anxiety or depression. IMPRESSION: 1. Obstructive sleep apnea. Moderate obstructive sleep apnea. Currently on CPAP pressure of 12 cm of water. The patient is having some difficulty in tolerating the CPAP therapy due to interval weight loss. Her AHI is at 17 at baseline. 2. Chronic hypersomnia. 3. Obesity with interval weight loss. Current body weight is down to 259 with a BMI of 41. 4. Severe tracheobronchomalacia. 5. History of recurrent bronchitis currently completing course of antibiotics. PLAN: 1. Lower CPAP pressure down to 10, from 12-10. 2. Encourage further weight loss. 3. Implement good sleep hygiene measures. 4. Completed treatment of bronchitis. 5. Contact me back if there is any issues with her CPAP therapy. For now, the CPAP pressure will be set at a pressure of 10 cm of water. BRITNI / JOHANAN: [id number] /
== END ==
LOC: SLEEP 16:42
PROVIDERS: ATTEND Internal Medicine Critical Care Medicine
DX: G47.33 Obstructive sleep apnea (adult) (pediatric) (principal); E66.9 Obesity, unspecified; J98.09 Other diseases of bronchus, not elsewhere classified; J40 Bronchitis, not specified as acute or chronic; Z68.41 Body mass index [BMI] 40.0-44.9, adult; Z99.89 Dependence on other enabling machines and devices

== ENCOUNTER 2018-12-15 13:18 | Inpatient (IN) | payer OTHER ==
[2018-12-15] MEDS ORDERED: IPRATROPIUM-ALBUTEROL 3 ML NEB INHALATION STA ×2 (13:32→13:35)
[2018-12-15] MEDS ORDERED: SODIUM CHLORIDE 0.9% 1,000 ML IV STA (13:35)
[2018-12-15] MEDS ORDERED: methylPREDNISolone SOD SUCCI 125 MG/2 ML VIAL IV STA (13:35)
[2018-12-15] MEDS ORDERED: MAGNESIUM SULFATE-D5W PMX 1 GM in DEXTROSE/WATER 1 100ML.BAG IVPB STA (13:36)
--- NOTE | 2018-12-15 13:59 | ED ---
SOB HPI - General Source: patient, family, RN notes reviewed, old records reviewed Mode of arrival: wheelchair Limitations: no limitations <Martha Wolfe - Last Filed: 12/15/18 15:47> <Carlos Hoffman - Last Filed: 12/15/18 15:55> - General Chief Complaint: Shortness of Breath Stated Complaint: JOSE MANUEL, Cough Time Seen by Provider: 12/15/18 13:31 - History of Present Illness Initial Comments: Patient is a 38-year-old female presents emergency Department and in acute respiratory distress. Patient has been fighting upper respiratory congestion and illness this for the past 6 weeks. She's been off and on antibiotics and steroids. She reports that she will get better for 2 days with started new medications and that seems to reoccur. She's had a productive cough with sputum. She has a history of tracheomalacia. She sees Dr. Feng. Patient reports that she saw Amira Ruiz earlier this month. Patient states that she has had it intermittent fevers and chills. No recent nausea or vomiting. She does wear oxygen at all times and is normally on 2 L. (Martha Wolfe) - Related Data Home Medications Medication Instructions Recorded Confirmed Albuterol Sulfate [Proair Hfa] 1 - 2 puff INHALATION RT-Q4H PRN 04/11/14 Ascorbic Acid [Vitamin C] 500 mg PO DAILY 04/11/14 12/15/18 EPINEPHrine (Auto Inject) [Epipen] 0.3 mg IM ONCE PRN 04/11/14 12/15/18 Famotidine [Pepcid] 20 mg PO BID 04/11/14 12/15/18 Zinc 50 mg PO DAILY 04/11/14 12/15/18 Calcium Carbonate/Vitamin D3 1 tab PO DAILY 12/08/14 12/15/18 [Calcium 600-Vit D3 400 Tablet] Nystatin [Nystop] 1 applic TOPICAL Q12H PRN 12/08/14 12/15/18 Magnesium Oxide [Mag-Ox] 250 mg PO DAILY 12/18/14 12/15/18 Furosemide [Lasix] 40 mg PO BID@0700,1500 04/22/15 12/15/18 Potassium Chloride [Klor-Con 20] 20 meq PO DAILY 04/22/15 12/15/18 Mometasone/Formoterol [Dulera 200 2 puff INHALATION RT-BID 09/12/15 12/15/18 Mcg/5 Mcg Inhaler] Warfarin [Coumadin] 5 mg PO Q48H 09/12/15 12/15/18 Cetirizine HCl [Zyrtec] 10 mg PO DAILY 12/21/15 12/15/18 Montelukast [Singulair] 10 mg PO HS 12/21/15 12/15/18 Levothyroxine Sodium [Synthroid] 50 mcg PO DAILY 03/03/16 12/15/18 Metoprolol Tartrate [Lopressor] 75 mg PO BID 01/09/17 12/15/18 Nystatin 100,000 Unit/ml Susp 5 ml PO QID PRN 01/09/17 12/15/18 [Mycostatin Oral Susp] Cholecalciferol [Vitamin D3] 5,000 unit PO DAILY 09/10/17 12/15/18 L.acidoph,Paracasei, B.lactis 1 cap PO DAILY 09/10/17 12/15/18 [Probiotic] Dicyclomine [Bentyl] 20 mg PO TID PRN 12/15/18 12/15/18 Diphenox-Atrop 2.5-0.025 mg 1 tab PO QID PRN 12/15/18 12/15/18 [Lomotil] Ipratropium-Albuterol Nebulize 3 ml INHALATION RT-QID PRN 12/15/18 12/15/18 [Duoneb 0.5 mg-3 mg/3 ml Soln] Previous Rx's Medication Instructions Recorded ALPRAZolam [Xanax] 0.5 mg PO Q8H #90 tablet 05/11/15 Allergies Allergy/AdvReac Type Severity Reaction Status Date / Time Aminoglycosides Allergy Unknown Verified 12/15/18 13:45 honey Allergy Anaphylaxis Verified 12/15/18 13:45 moxifloxacin HCl Allergy Unknown Verified 12/15/18 13:45 [From Avelox] peanut Allergy Unknown Verified 12/15/18 13:45 azithromycin [From Zithromax] AdvReac Nausea & Verified 12/15/18 13:45 Vomiting & Diarrhea clindamycin AdvReac Dyspnea Verified 12/15/18 13:45 corn syrup AdvReac Nausea Verified 12/15/18 13:45 lactose AdvReac Nausea Verified 12/15/18 13:45 levofloxacin [From Levaquin] AdvReac Dyspnea Verified 12/15/18 13:45 neomycin [Neomycin] AdvReac Dyspnea Verified 12/15/18 13:45 omalizumab [From Xolair] AdvReac Dyspnea Verified 12/15/18 13:45 sulfamethoxazole AdvReac Diarrhea/co Verified 12/15/18 13:45 [From Bactrim] litis trimethoprim [From Bactrim] AdvReac Diarrhea/co Verified 12/15/18 13:45 litis Review of Systems ROS Other: All systems not noted in ROS Statement are negative. <Martha Wolfe - Last Filed: 12/15/18 15:47> ROS Other: All systems not noted in ROS Statement are negative. <Carlos Hoffman - Last Filed: 12/15/18 15:55> ROS Statement: Those systems with pertinent positive or pertinent negative responses have been documented in the HPI. Past Medical History Past Medical History: Asthma, Heart Failure, COPD, CVA/TIA, GERD/Reflux, Hypertension, Sleep Apnea/CPAP/BIPAP, Thyroid Disorder Additional Past Medical History / Comment(s): Uses CPAP. Recurrent bronchitis. Chronic TRACHEOBRONCHOMALCIA. CHF with systolic dysfunction and EF of 40-45%. TACHYCARDIA. SCOLIOSIS. vocal cord dysfunction. Syncopy with TIA.c-diff 04-22-15 colitis, difficulty swallowing large pills and needs meat chopped up History of Any Multi-Drug Resistant Organisms: C-DIFF Date of last positivie culture/infection: 04/22/15 MDRO Source:: stool Past Surgical History: Cholecystectomy, Heart Catheterization, Orthopedic Surgery, Tubal Ligation, Uterine Ablation Additional Past Surgical History / Comment(s): HEART CATH. BREAST BIOPSY-NEG. COLON POLYP - NEG. D&C. BILATERAL KNEE. NECK CYST. BOWEL RESECTION. VOCAL CORD. BRONCHOSCOPY 3-6-15 PER PT FOUND HERPES SIMPLES BLISTERS IN LUNGS. HAS HAD 15 BRONCHS.rt arm tendon sx Past Anesthesia/Blood Transfusion Reactions: Postoperative Nausea & Vomiting ( PONV) Additional Past Anesthesia/Blood Transfusion Reaction / Comment(s): Pt has never recieved blood. Past Psychological History: Anxiety Smoking Status: Never smoker Past Alcohol Use History: None Reported Past Drug Use History: None Reported - Past Family History Father Family Medical History: Cancer, Congestive Heart Failure (CHF), CVA/TIA, Myocardial Infarction (PA), Prostate Disorder Additional Family Medical History / Comment(s): at age 84- chocked on a hot dog Mother Family Medical History: Cancer, Osteoarthritis (OA) Additional Family Medical History / Comment(s): mom is 84 breast ca surviver. <Martha Wolfe - Last Filed: 12/15/18 15:47> General Exam Limitations: no limitations General appearance: alert, in no apparent distress Head exam: Present: atraumatic, normocephalic, normal inspection Eye exam: Present: normal appearance, PERRL, EOMI. Absent: scleral icterus, conjunctival injection, periorbital swelling ENT exam: Present: normal exam, mucous membranes moist Neck exam: Present: normal inspection. Absent: tenderness, meningismus, lymphadenopathy Respiratory exam: Present: wheezes (Audible wheezing upon entering the room), rhonchi, other (Retractions noted). Absent: normal lung sounds bilaterally, respiratory distress, rales, stridor Cardiovascular Exam: Present: regular rate, normal rhythm, normal heart sounds. Absent: systolic murmur, diastolic murmur, rubs, gallop, clicks GI/Abdominal exam: Present: soft Extremities exam: Present: normal inspection, full ROM, normal capillary refill. Absent: tenderness, pedal edema, joint swelling, calf tenderness Back exam: Present: normal inspection Neurological exam: Present: alert, oriented X3, CN II-XII intact Psychiatric exam: Present: normal affect, normal mood Skin exam: Present: warm, dry, intact, normal color. Absent: rash <Martha Wolfe - Last Filed: 12/15/18 15:47> <Carlos Hoffman - Last Filed: 12/15/18 15:55> - General Exam Comments Initial Comments: Patient is 58-year-old female. She arrives in some respiratory distress. Audible Wheezing and retracting noted. (Martha Wolfe) Course <Martha Wolfe - Last Filed: 12/15/18 15:47> <Carlos Hfofman - Last Filed: 12/15/18 15:55> Vital Signs 12/15/18 12/15/18 12/15/18 13:20 13:49 13:55 Temperature 98.9 F Pulse Rate 91 84 Respiratory 18 24 Rate Blood Pressure 136/86 O2 Sat by Pulse 95 Oximetry 12/15/18 12/15/18 12/15/18 14:06 14:19 14:56 Temperature Pulse Rate 95 91 80 Respiratory 20 21 18 Rate Blood Pressure 166/97 147/92 140/88 O2 Sat by Pulse 97 97 98 Oximetry 12/15/18 15:35 Temperature Pulse Rate 73 Respiratory 18 Rate Blood Pressure 132/72 O2 Sat by Pulse 98 Oximetry - Reevaluation(s) Reevaluation #1: 12/15/18 14:05 Patient had increased respiratory distress. She was placed on BiPAP machine. ( Martha Wolfe) Reevaluation #2: 12/15/18 15:47 Patient is reevaluated and resting comfortably while on BiPAP machine. ( Martha Wolfe) Medical Decision Making - Lab Data Result diagrams: 12/15/18 13:37 12/15/18 13:37 - Radiology Data Radiology results: report reviewed <Martha Wolfe - Last Filed: 12/15/18 15:47> - Lab Data Result diagrams: 12/15/18 13:37 12/15/18 13:37 <Carlos Hoffman - Last Filed: 12/15/18 15:55> - Medical Decision Making Patient is a 58-year-old female who arrives to emergency department today with respiratory distress. Audible wheezing noted on entering room. She was started on double DuoNeb treatment given IV steroids and magnesium. Patient started to have rapid decline with difficulty breathing. BIPAP Was initiated. She is given 0.5 mg of Ativan and calm down and started to breathe comfortably on BiPAP at that time. Patient's labwork was reviewed and relatively unremarkable. EKG shows no acute ST changes. We discussed the case with patient's rn wound care Dr. Feng. He reviewed the imaging and recommended no intubation. Patient will be admitted this time for acute respiratory distress. Maintain on IV steroids with consult to Dr. Feng. (Martha Wolfe) IJuan José, personally saw and examined the patient. I have reviewed and agree with the PA findings, including all diagnostic interpretations and treatment plans as written unless otherwise stated. I was present for the lopez portions of any procedures performed and the inclusive time noted for any critical care statement. (Carlos Hoffman) - Lab Data Lab Results 12/15/18 12/15/18 12/15/18 Range/Units 13:37 13:37 13:37 WBC 12.7 H (3.8-10.6) k/uL RBC 4.58 (3.80-5.40) m/uL Hgb 14.0 (11.4-16.0) gm/dL Hct 42.2 (34.0-46.0) % MCV 92.1 (80.0-100.0) fL MCH 30.5 (25.0-35.0) pg MCHC 33.1 (31.0-37.0) g/dL RDW 13.6 (11.5-15.5) % Plt Count 226 (150-450) k/uL Neutrophils % 76 % Lymphocytes % 19 % Monocytes % 3 % Eosinophils % 1 % Basophils % 0 % Neutrophils # 9.6 H (1.3-7.7) k/uL Lymphocytes # 2.5 (1.0-4.8) k/uL Monocytes # 0.3 (0-1.0) k/uL Eosinophils # 0.1 (0-0.7) k/uL Basophils # 0.1 (0-0.2) k/uL PT (9.0-12.0) sec INR (<1.2) APTT (22.0-30.0) sec Sodium 143 (137-145) mmol/L Potassium 3.9 (3.5-5.1) mmol/L Chloride 105 (98-107) mmol/L Carbon Dioxide 26 (22-30) mmol/L Anion Gap 12 mmol/L BUN 24 H (7-17) mg/dL Creatinine 1.03 (0.52-1.04) mg/dL Est GFR (CKD-EPI)AfAm 70 (>60 ml/min/1.73 sqM) Est GFR (CKD-EPI)NonAf 61 (>60 ml/min/1.73 sqM) Glucose 142 H (74-99) mg/dL Calcium 9.1 (8.4-10.2) mg/dL Magnesium 1.9 (1.6-2.3) mg/dL Total Bilirubin 0.8 (0.2-1.3) mg/dL AST 29 (14-36) U/L ALT 34 (9-52) U/L Alkaline Phosphatase 94 (38-126) U/L Troponin I (0.000-0.034) ng/mL NT-Pro-B Natriuret Pep 74 pg/mL Total Protein 7.2 (6.3-8.2) g/dL Albumin 4.4 (3.5-5.0) g/dL 12/15/18 12/15/18 Range/Units 13:37 13:37 WBC (3.8-10.6) k/uL RBC (3.80-5.40) m/uL Hgb (11.4-16.0) gm/dL Hct (34.0-46.0) % MCV (80.0-100.0) fL MCH (25.0-35.0) pg MCHC (31.0-37.0) g/dL RDW (11.5-15.5) % Plt Count (150-450) k/uL Neutrophils % % Lymphocytes % % Monocytes % % Eosinophils % % Basophils % % Neutrophils # (1.3-7.7) k/uL Lymphocytes # (1.0-4.8) k/uL Monocytes # (0-1.0) k/uL Eosinophils # (0-0.7) k/uL Basophils # (0-0.2) k/uL PT 14.1 H (9.0-12.0) sec INR 1.4 H (<1.2) APTT 28.8 (22.0-30.0) sec Sodium (137-145) mmol/L Potassium (3.5-5.1) mmol/L Chloride (98-107) mmol/L Carbon Dioxide (22-30) mmol/L Anion Gap mmol/L BUN (7-17) mg/dL Creatinine (0.52-1.04) mg/dL Est GFR (CKD-EPI)AfAm (>60 ml/min/1.73 sqM) Est GFR (CKD-EPI)NonAf (>60 ml/min/1.73 sqM) Glucose (74-99) mg/dL Calcium (8.4-10.2) mg/dL Magnesium (1.6-2.3) mg/dL Total Bilirubin (0.2-1.3) mg/dL AST (14-36) U/L ALT (9-52) U/L Alkaline Phosphatase (38-126) U/L Troponin I <0.012 (0.000-0.034) ng/mL NT-Pro-B Natriuret Pep pg/mL Total Protein (6.3-8.2) g/dL Albumin (3.5-5.0) g/dL 12/15/18 14:05 EKG performed at 1340 shows sinus rhythm nonspecific ST and T-wave abnormality. Abnormal EKG. Ventricularly of 87 bpm. Verbal 1:30 milliseconds. QS duration 80 ms. QT QTc is 408/4 and 90 ms. ( Martha Wolfe) - Radiology Data Chest x-ray shows new mild subsegmental atelectasis at the right lung base compared old exam. (Martha Wolfe) Critical Care Time Critical Care Time: Yes Total Critical Care Time: 30 <Martha Wolfe - Last Filed: 12/15/18 15:47> <Carlos Hoffman - Last Filed: 12/15/18 15:55> Critical Care Time: Approximately 30 minutes critical care time between myself and was completed with placing the Patient on BiPAP and consults to rn wound care ( Martha Wolfe) Disposition Is patient prescribed a controlled substance at d/c from ED?: No Time of Disposition: 15:51 <Martha Wolfe - Last Filed: 12/15/18 15:47> <Carlos Hoffman - Last Filed: 12/15/18 15:55> Clinical Impression: Acute respiratory distress, Tracheobronchitis Disposition: ADMITTED IP TO THIS HOSP Condition: Stable Referrals: Nonstaff,Physician [REFERRING] - 1-2 days
[2018-12-15] MEDS ORDERED: LORazepam 2 MG/ML INJ IV STA (14:04)
[2018-12-15 14:07] LABS: Basophils # (A) 0.1 k/uL (0-0.2); Basophils % (A) 0 %; Eosinophils # (A) 0.1 k/uL (0-0.7); Eosinophils % (A) 1 %; HCT 42.2 % (34.0-46.0); Lymphocytes # (A) 2.5 k/uL (1.0-4.8); Lymphocytes % (A) 19 %; MCH 30.5 pg (25.0-35.0); MCHC 33.1 g/dL (31.0-37.0); MCV 92.1 fL (80.0-100.0); Mean Platelet Volume 8.1; Monocytes # (A) 0.3 k/uL (0-1.0); Monocytes % (A) 3 %; Neutrophils # (A) 9.6 k/uL (1.3-7.7); Neutrophils % (A) 76 %; Platelet Count 226 k/uL (150-450); RBC 4.58 m/uL (3.80-5.40); RDW 13.6 % (11.5-15.5); WBC 12.7 k/uL (3.8-10.6)
[2018-12-15 14:14] LABS: Albumin 4.4 g/dL (3.5-5.0); Calcium 9.1 mg/dL (8.4-10.2); Magnesium 1.9 mg/dL (1.6-2.3); Potassium 3.9 mmol/L (3.5-5.1); Total Bilirubin 0.8 mg/dL (0.2-1.3); Total Protein 7.2 g/dL (6.3-8.2)
[2018-12-15 14:16] LABS: INR 1.4 (<1.2); Partial Thromboplastin Time 28.8 sec (22.0-30.0); Prothrombin Time 14.1 sec (9.0-12.0)
--- NOTE | 2018-12-15 15:02 | XR ---
EXAMINATION TYPE: XR chest 1V DATE OF EXAM: 12/15/2018 COMPARISON: 06/25/2017 HISTORY: Difficulty breathing TECHNIQUE: Single frontal view of the chest is obtained. FINDINGS: There is no heart failure nor confluent pneumonic infiltrate. There is some linear density at the right lung base. Thoracic aorta is atheromatous. There is no pleural effusion. IMPRESSION: New Mild subsegmental atelectasis at the right lung base compared to old exam.
[2018-12-15] MEDS ORDERED: PROMETHAZ-COD 6.25-10 MG/5 ML 5 ML CUP PO PRN (15:52)
[2018-12-15] MEDS ORDERED: IPRATROPIUM-ALBUTEROL 3 ML NEB INHALATION PRN (15:52)
[2018-12-15] MEDS ORDERED: NALOXONE 0.4 MG/ML 1 ML VIAL IV PRN (16:04)
--- NOTE | 2018-12-15 16:20 | P.HPIM ---
History of Present Illness H&P Date: 12/15/18 Chief Complaint: COPD exacerbation 58 show female with PMH of tracheomalacia, COPD, history of TIA, hypertension, hypothyroidism, DVT of the left lower extremity on Coumadin presents the ED for shortness of breath and wheezing. History was limited from the patient as she was on continuous BiPAP, at bedside to provide majority of history. Patient reports URI like symptoms for the past 6 weeks characterized with cough productive of copious green sputum, rhinorrhea and nasal congestion. Patient reports increased difficulty breathing, on and off, persistently got worse over the last couple of days, prompting her to come to the ED. Patient also reports one episode of nonbilious nonbloody vomiting today along with nausea. She denies any headaches, lower extremity edema, fever, chills, chest pain, palpitations, changes in urination or bowel habits. No changes in appetite or weight. Patient denies dizziness, numbness/tingling/weakness of the extremities. Of note, patient lives with her . She is able to ambulate with the assistance of a cane. In the ED, CBC showed a mild leukocytosis of 12.7. Coagulation panel showed an INR 1.4. CMP showed a BUN of 24 and glucose of 142. Initial troponin was less than 0.012, EKG showing normal sinus rhythm. Chest x-ray shows mild subsegmental atelectasis. Patient was initially started on DuoNeb treatments along with IV steroids and supplemental oxygen. She was eventually transitioned to BiPAP to improve her breathing status. She is admitted for COPD exacerbation, pulmonology is on consult. Review of Systems All systems: negative Past Medical History Past Medical History: Asthma, Heart Failure, COPD, CVA/TIA, GERD/Reflux, Hypertension, Sleep Apnea/CPAP/BIPAP, Thyroid Disorder Additional Past Medical History / Comment(s): Uses CPAP. Recurrent bronchitis. Chronic TRACHEOBRONCHOMALCIA. CHF with systolic dysfunction and EF of 40-45%. TACHYCARDIA. SCOLIOSIS. vocal cord dysfunction. Syncopy with TIA.c-diff 04-22-15 colitis, difficulty swallowing large pills and needs meat chopped up History of Any Multi-Drug Resistant Organisms: C-DIFF Date of last positivie culture/infection: 04/22/15 MDRO Source:: stool Past Surgical History: Cholecystectomy, Heart Catheterization, Orthopedic Surgery, Tubal Ligation, Uterine Ablation Additional Past Surgical History / Comment(s): HEART CATH. BREAST BIOPSY-NEG. COLON POLYP - NEG. D&C. BILATERAL KNEE. NECK CYST. BOWEL RESECTION. VOCAL CORD. BRONCHOSCOPY 3-6-15 PER PT FOUND HERPES SIMPLES BLISTERS IN LUNGS. HAS HAD 15 BRONCHS.rt arm tendon sx Past Anesthesia/Blood Transfusion Reactions: Postoperative Nausea & Vomiting ( PONV) Additional Past Anesthesia/Blood Transfusion Reaction / Comment(s): Pt has never recieved blood. Past Psychological History: Anxiety Smoking Status: Never smoker Past Alcohol Use History: None Reported Past Drug Use History: None Reported - Past Family History Father Family Medical History: Cancer, Congestive Heart Failure (CHF), CVA/TIA, Myocardial Infarction (DC), Prostate Disorder Additional Family Medical History / Comment(s): at age 84- chocked on a hot dog Mother Family Medical History: Cancer, Osteoarthritis (OA) Additional Family Medical History / Comment(s): mom is 84 breast ca surviver. Medications and Allergies Home Medications Medication Instructions Recorded Confirmed Type Albuterol Sulfate [Proair Hfa] 1 - 2 puff INHALATION RT-Q4H PRN 04/11/14 History Ascorbic Acid [Vitamin C] 500 mg PO DAILY 04/11/14 12/15/18 History EPINEPHrine (Auto Inject) [Epipen] 0.3 mg IM ONCE PRN 04/11/14 12/15/18 History Famotidine [Pepcid] 20 mg PO BID 04/11/14 12/15/18 History Zinc 50 mg PO DAILY 04/11/14 12/15/18 History Calcium Carbonate/Vitamin D3 1 tab PO DAILY 12/08/14 12/15/18 History [Calcium 600-Vit D3 400 Tablet] Nystatin [Nystop] 1 applic TOPICAL Q12H PRN 12/08/14 12/15/18 History Magnesium Oxide [Mag-Ox] 250 mg PO DAILY 12/18/14 12/15/18 History Furosemide [Lasix] 40 mg PO BID@0700,1500 04/22/15 12/15/18 History Potassium Chloride [Klor-Con 20] 20 meq PO DAILY 04/22/15 12/15/18 History ALPRAZolam [Xanax] 0.5 mg PO Q8H #90 tablet 05/11/15 12/15/18 Rx Mometasone/Formoterol [Dulera 200 2 puff INHALATION RT-BID 09/12/15 12/15/18 History Mcg/5 Mcg Inhaler] Warfarin [Coumadin] 5 mg PO Q48H 09/12/15 12/15/18 History Cetirizine HCl [Zyrtec] 10 mg PO DAILY 12/21/15 12/15/18 History Montelukast [Singulair] 10 mg PO HS 12/21/15 12/15/18 History Levothyroxine Sodium [Synthroid] 50 mcg PO DAILY 03/03/16 12/15/18 History Metoprolol Tartrate [Lopressor] 75 mg PO BID 01/09/17 12/15/18 History Nystatin 100,000 Unit/ml Susp 5 ml PO QID PRN 01/09/17 12/15/18 History [Mycostatin Oral Susp] Cholecalciferol [Vitamin D3] 5,000 unit PO DAILY 09/10/17 12/15/18 History L.acidoph,Paracasei, B.lactis 1 cap PO DAILY 09/10/17 12/15/18 History [Probiotic] Dicyclomine [Bentyl] 20 mg PO TID PRN 12/15/18 12/15/18 History Diphenox-Atrop 2.5-0.025 mg 1 tab PO QID PRN 12/15/18 12/15/18 History [Lomotil] Ipratropium-Albuterol Nebulize 3 ml INHALATION RT-QID PRN 12/15/18 12/15/18 History [Duoneb 0.5 mg-3 mg/3 ml Soln] Allergies Allergy/AdvReac Type Severity Reaction Status Date / Time Aminoglycosides Allergy Unknown Verified 12/15/18 13:45 honey Allergy Anaphylaxis Verified 12/15/18 13:45 moxifloxacin HCl Allergy Unknown Verified 12/15/18 13:45 [From Avelox] peanut Allergy Unknown Verified 12/15/18 13:45 azithromycin [From Zithromax] AdvReac Nausea & Verified 12/15/18 13:45 Vomiting & Diarrhea clindamycin AdvReac Dyspnea Verified 12/15/18 13:45 corn syrup AdvReac Nausea Verified 12/15/18 13:45 lactose AdvReac Nausea Verified 12/15/18 13:45 levofloxacin [From Levaquin] AdvReac Dyspnea Verified 12/15/18 13:45 neomycin [Neomycin] AdvReac Dyspnea Verified 12/15/18 13:45 omalizumab [From Xolair] AdvReac Dyspnea Verified 12/15/18 13:45 sulfamethoxazole AdvReac Diarrhea/co Verified 12/15/18 13:45 [From Bactrim] litis trimethoprim [From Bactrim] AdvReac Diarrhea/co Verified 12/15/18 13:45 litis Physical Exam Vitals: Vital Signs Temp Pulse Resp BP Pulse Ox 12/15/18 15:35 73 18 132/72 98 12/15/18 14:56 80 18 140/88 98 12/15/18 14:19 91 21 147/92 97 12/15/18 14:06 95 20 166/97 97 12/15/18 13:55 24 12/15/18 13:49 84 12/15/18 13:20 98.9 F 91 18 136/86 95 Intake and Output 12/15/18 12/15/18 12/15/18 06:59 14:59 22:59 Other: Weight 122.47 kg General: [non toxic], [dyspneic on BiPAP], [appears at stated age] Derm: [warm], [dry] Head: [atraumatic], [normocephalic], [symmetric] Eyes: [EOMI], [no lid lag], [anicteric sclera] Mouth: [no lip lesion], [mucus membranes moist] Cardiovascular: [S1S2 reg], [no murmur], [positive DP pulse bilateral] Lungs: [Diffuse wheezing bilateral], [no rhonchi, no rales] , [no accessory muscle use] Abdominal: [soft], [ nontender to palpation], [no guarding], [no appreciable organomegaly] Ext: [no gross muscle atrophy], [no edema], [no contractures] Neuro: [no focal neuro deficits] Psych: [Alert], [oriented], [appropriate affect] Results CBC & Chem 7: 12/15/18 13:37 12/15/18 13:37 Labs: Abnormal Lab Results - Last 24 Hours (Table) 03/02/19 03/02/19 03/02/19 Range/Units 13:37 13:37 13:37 WBC 12.7 H (3.8-10.6) k/uL Neutrophils # 9.6 H (1.3-7.7) k/uL PT 14.1 H (9.0-12.0) sec INR 1.4 H (<1.2) BUN 24 H (7-17) mg/dL Glucose 142 H (74-99) mg/dL Thrombosis Risk Factor Assmnt - Choose All That Apply Any of the Below Risk Factors Present?: Yes Each Factor Represents 1 point: Abnormal pulmonary function (COPD), Age 41-60 years, Obesity (BMI >25) Thrombosis Risk Factor Assessment Total Risk Factor Score: 3 Thrombosis Risk Factor Assessment Level: Moderate Risk Assessment and Plan Assessment: Assessment and Plan 1. COPD exacerbation 2. Tracheomalacia 3. History of TIA 4. DVT of the left lower terell 5. Hypertension 6. Hypothyroidism 1. Likely secondary to URI. Patient is afebrile with a mild leukocytosis of 12.7. Chest x-ray is negative for pneumonia. Continue DuoNeb 4 times a day scheduled and as needed for shortness of breath or wheezing. Continue Solu- Medrol 60 IV every 6 hours. Continue Symbicort 2 puffs twice a day, Singulair 10 mg by mouth at bedtime. O2 per nasal cannula to maintain an oxygen saturation greater than 92%. BiPAP as needed. Will follow pulmonology consult. 2. Optimize COPD medications. BiPAP as needed. Will follow pulmonology recommendations. 3. Stable. Unsure why patient is not on aspirin and statin. Need collateral history. 4. INR subtherapeutic at 1.4. Continue warfarin 5 mg by mouth every 48 hours. Daily INR. 5. BP 132/72. Continue metoprolol 75 mg by mouth twice a day. Continue Lasix 40 mg by mouth twice a day. Monitor vitals, adjust medications as necessary. 6. Stable. Continue Synthroid 50 g by mouth daily. Patient admitted for COPD exacerbation, pulmonology is on consult. History of tracheomalacia. Unsure why patient is not on aspirin or statin. She is pending clinical improvement.
[2018-12-15] MEDS: methylPREDNISolone SOD SUCCI 125 MG/2 ML VIAL IV SCH ×2 (20:03→23:09)
[2018-12-15] MEDS: IPRATROPIUM-ALBUTEROL 3 ML NEB INHALATION SCH ×2 (20:12→23:39)
[2018-12-15] MEDS: SYMBICORT 160-4.5 MCG INHALER INHALATION SCH (20:13)
[2018-12-15] MEDS: METOPROLOL TARTRATE 25 MG TAB PO SCH (20:27)
[2018-12-15] MEDS: MONTELUKAST 10 MG TAB PO SCH (20:27)
[2018-12-15] MEDS: guaiFENesin 600 MG TABLET.ER PO SCH (20:27)
[2018-12-15] MEDS: FAMOTIDINE 20 MG TAB PO SCH (20:27)
[2018-12-15] MEDS: ALPRAZolam 0.5 MG TAB PO SCH (23:09)
[2018-12-16] MEDS: IPRATROPIUM-ALBUTEROL 3 ML NEB INHALATION SCH ×6 (03:43→23:31)
[2018-12-16 06:26] LABS: Glucose,Whole Blood 129 mg/dL (75-99)
[2018-12-16] MEDS: methylPREDNISolone SOD SUCCI 125 MG/2 ML VIAL IV SCH ×3 (06:26→17:17)
[2018-12-16] MEDS: FUROSEMIDE 40 MG TAB PO SCH ×2 (06:27→15:45)
[2018-12-16] MEDS: LEVOTHYROXINE 50 MCG TAB PO SCH (06:27)
[2018-12-16] MEDS: INSULIN ASPART (NovoLOG) 100 UNIT/ML VIAL SQ SCH ×4 (06:31→21:38)
[2018-12-16 07:35] LABS: Basophils % (A) 0 %; Eosinophils # (A) 0.1 k/uL (0-0.7); Eosinophils % (A) 1 %; HCT 39.9 % (34.0-46.0); HGB 13.1 gm/dL (11.4-16.0); Lymphocytes # (A) 2.1 k/uL (1.0-4.8); Lymphocytes % (A) 21 %; MCH 30.5 pg (25.0-35.0); MCHC 32.8 g/dL (31.0-37.0); MCV 93.2 fL (80.0-100.0); Mean Platelet Volume 7.5; Monocytes # (A) 0.3 k/uL (0-1.0); Monocytes % (A) 3 %; Neutrophils # (A) 7.4 k/uL (1.3-7.7); Neutrophils % (A) 74 %; Platelet Count 219 k/uL (150-450); RBC 4.28 m/uL (3.80-5.40); RDW 13.4 % (11.5-15.5)
[2018-12-16 07:45] LABS: Anion Gap 6 mmol/L; Blood Urea Nitrogen 25 mg/dL (7-17); Calcium 9.2 mg/dL (8.4-10.2); Carbon Dioxide 26 mmol/L (22-30); Chloride 109 mmol/L (98-107); Glucose 131 mg/dL (74-99); Sodium 141 mmol/L (137-145)
[2018-12-16 08:06] LABS: Creatine Kinase 23 U/L (30-135)
[2018-12-16] MEDS: ALPRAZolam 0.5 MG TAB PO SCH ×2 (08:09→15:45)
[2018-12-16] MEDS: FAMOTIDINE 20 MG TAB PO SCH ×2 (08:09→21:37)
[2018-12-16] MEDS: MAGNESIUM OXIDE 400 MG TAB PO SCH (08:09)
[2018-12-16] MEDS: guaiFENesin 600 MG TABLET.ER PO SCH ×2 (08:09→21:37)
[2018-12-16] MEDS: METOPROLOL TARTRATE 25 MG TAB PO SCH (08:09)
[2018-12-16] MEDS: SYMBICORT 160-4.5 MCG INHALER INHALATION SCH (08:10)
[2018-12-16 08:20] LABS: Creatine Kinase MB 0.3 ng/mL (0.0-2.4); Troponin I <0.012 ng/mL (0.000-0.034)
[2018-12-16] MEDS ORDERED: LORazepam 2 MG/ML INJ IV STA (10:45)
--- NOTE | 2018-12-16 11:32 | P.PN ---
Subjective Progress Note Date: 12/16/18 Principal diagnosis: COPD exacerbation, tracheomalacia Patient was seen and examined. No acute events overnight. Patient reports continued difficulty in breathing. She continues to be on BiPAP and expense respiratory distress. Objective - Vital Signs Vital signs: Vital Signs Temp 97 F L 12/16/18 08:05 Pulse 76 12/16/18 08:12 Resp 20 12/16/18 08:05 BP 140/83 12/16/18 08:05 Pulse Ox 98 12/16/18 08:05 Intake & Output 12/15/18 12/16/18 12/16/18 18:59 06:59 18:59 Weight 122.47 kg 132 kg Other: Voiding Method Bedside Commode # Voids 1 # Bowel Movements 0 - Exam General: [non toxic], [dyspneic on BiPAP], [appears at stated age] Derm: [warm], [dry] Head: [atraumatic], [normocephalic], [symmetric] Eyes: [EOMI], [no lid lag], [anicteric sclera] Mouth: [no lip lesion], [mucus membranes moist] Cardiovascular: [S1S2 reg], [no murmur], [positive DP pulse bilateral] Lungs: [Diffuse wheezing bilateral], [no rhonchi, no rales] , [no accessory muscle use] Abdominal: [soft], [ nontender to palpation], [no guarding], [no appreciable organomegaly] Ext: [no gross muscle atrophy], [no edema], [no contractures] Neuro: [no focal neuro deficits] Psych: [Alert], [oriented], [appropriate affect] - Labs CBC & Chem 7: 12/16/18 07:15 12/16/18 07:15 Labs: Abnormal Lab Results - Last 24 Hours (Table) 12/15/18 12/15/18 12/15/18 Range/Units 13:37 13:37 13:37 WBC 12.7 H (3.8-10.6) k/uL Neutrophils # 9.6 H (1.3-7.7) k/uL PT 14.1 H (9.0-12.0) sec INR 1.4 H (<1.2) Chloride (98-107) mmol/L BUN 24 H (7-17) mg/dL Glucose 142 H (74-99) mg/dL POC Glucose (mg/dL) (75-99) mg/dL Total Creatine Kinase (30-135) U/L 12/16/18 12/16/18 12/16/18 Range/Units 06:24 07:15 07:15 WBC (3.8-10.6) k/uL Neutrophils # (1.3-7.7) k/uL PT (9.0-12.0) sec INR (<1.2) Chloride 109 H (98-107) mmol/L BUN 25 H (7-17) mg/dL Glucose 131 H (74-99) mg/dL POC Glucose (mg/dL) 129 H (75-99) mg/dL Total Creatine Kinase 23 L (30-135) U/L Assessment and Plan Assessment: Assessment and Plan 1. COPD exacerbation 2. Tracheomalacia 3. History of TIA 4. DVT of the left lower terell 5. Hypertension 6. Hypothyroidism 1. Likely secondary to URI. Patient is afebrile with a mild leukocytosis of 12.7 which resolved this morning. Chest x-ray is negative for pneumonia. Continue DuoNeb 4 times a day scheduled and as needed for shortness of breath or wheezing. Continue Solu-Medrol 60 IV every 6 hours. Continue Symbicort 2 puffs twice a day, Singulair 10 mg by mouth at bedtime. O2 per nasal cannula to maintain an oxygen saturation greater than 92%. BiPAP as needed. Pulmonology consulted, recommends transfer to ICU. Will follow pulmonology consult. 2. Optimize COPD medications. BiPAP as needed. Will follow pulmonology recommendations. 3. Stable. Unsure why patient is not on aspirin and statin, will ask when off BiPAP. 4. INR subtherapeutic at 1.4. Continue warfarin 5 mg by mouth every 48 hours. Daily INR. 5. BP 140/83. Continue metoprolol 75 mg by mouth twice a day. Continue Lasix 40 mg by mouth twice a day. Monitor vitals, adjust medications as necessary. 6. Stable. Continue Synthroid 50 g by mouth daily. Patient admitted for COPD exacerbation, pulmonology is on consult. History of tracheomalacia. Patient being transferred to ICU. She is pending clinical improvement.
[2018-12-16 11:53] LABS: Glucose,Whole Blood 122 mg/dL (75-99)
[2018-12-16] MEDS: AZITHROMYCIN 500 MG in SODIUM CHLORIDE 0.9% 250 ML IVPB SCH (12:50)
[2018-12-16] MEDS: SODIUM CHLORIDE 0.9% 1,000 ML IV SCH (12:50)
--- NOTE | 2018-12-16 13:18 | P.CNPUL ---
History of Present Illness Consult date: 12/16/18 Reason for consult: dyspnea History of present illness: 58-year-old female patient with known history of bronchial asthma, CVA check of bronchomalacia, history of paradoxic vocal cord dysfunction, who presented to the [facility] and yesterday because of increased shortness of breath, active bronchospasm wheezing. The patient was having frequent coughing episodes. On few occasions, she experienced paradoxical vocal cord dysfunction she was having some respiratory stridor's also. The patient was placed on a BiPAP at a patient got minute to the hospital. Chest exit showed a early right lower lobe pulmonary infiltrate that was suggestive an underlying pneumonia. The patient was having increased productive cough with copious amount of purulent material in addition to nasal congestion and rhinorrhea on outpatient basis. I have the patient a combination of Symbicort and Spiriva in addition to albuterol nebulized treatment when necessary. She also has a CPAP machine at home for obstructive sleep apnea. No angina. No palpitation. I came and saw this patient and father quite bronchospastic and wheezy. At times she was having some respiratory stridor especially when she induces paradoxic vocal cords activity. She had received benzodiazepines and I also ordered some Ativan and Xanax on a when necessary basis. Note that this will be quite extensive for the floor nurses to take the patient got transferred to the intensive care unit. No altered mentation. INR is at 1.4 and the patient on long-term and coagulation regarding previous history of pulmonary embolism. No angina. No major swelling lower extremities. No fever or chills. She will be started on antibiotics and systemic steroids. No syncope. No altered mentation. Review of Systems Constitutional: Reports fatigue, Reports lethargy Eyes: denies as per HPI, denies blurred vision, denies bulging eye, denies decreased vision, denies diplopia, denies discharge, denies dry eye, denies irritation, denies itching, denies pain, denies photophobia, denies loss of peripheral vision, denies loss of vision, denies tunnel vision/blind spots Ears: deny: decreased hearing, ear discharge, earache, tinnitus Ears, nose, mouth and throat: Reports hoarseness, Reports nasal congestion, Reports post-nasal drip, Reports voice changes Breasts: absent: as per HPI, change in shape, gynecomastia, masses, nipple discharge, pain, skin changes, swelling Cardiovascular: Reports decreased exercise tolerance, Reports dyspnea on exertion Respiratory: Reports cough, Reports dyspnea, Reports respiratory infections, Reports sleep apnea, Reports snoring, Reports wheezing Gastrointestinal: Denies abdominal pain, Denies diarrhea, Denies nausea, Denies vomiting Genitourinary: Reports as per HPI Menstruation: Reports as per HPI Musculoskeletal: Reports as per HPI Musculoskeletal: absent: ankle pain, ankle stiffness, ankle swelling, as per HPI , elbow pain, elbow stiffness, elbow swelling, foot pain, foot stiffness, foot swelling, hand pain, hand stiffness, hand swelling, hip pain, hip stiffness, hip swelling, knee pain, knee stiffness, knee swelling, shoulder pain, shoulder stiffness, shoulder swelling, wrist pain, wrist stiffness, wrist swelling Integumentary: Reports as per HPI Neurological: Reports as per HPI Psychiatric: Reports as per HPI, Reports anxiety, Reports anxiety attacks, Reports sleep disturbances Endocrine: Reports as per HPI Hematologic/Lymphatic: Reports as per HPI Allergic/Immunologic: Reports as per HPI Past Medical History Past Medical History: Asthma, Heart Failure, COPD, CVA/TIA, GERD/Reflux, Hypertension, Sleep Apnea/CPAP/BIPAP, Thyroid Disorder Additional Past Medical History / Comment(s): THRUSH, Uses CPAP. Recurrent bronchitis. Chronic TRACHEOBRONCHOMALCIA. CHF with systolic dysfunction and EF of 40-45%. TACHYCARDIA. SCOLIOSIS. vocal cord dysfunction. Syncopy with TIA.c- diff 04-22-15 colitis, difficulty swallowing large pills and needs meat chopped up History of Any Multi-Drug Resistant Organisms: C-DIFF Date of last positivie culture/infection: 04/22/15 MDRO Source:: stool Past Surgical History: Cholecystectomy, Heart Catheterization, Orthopedic Surgery, Tubal Ligation, Uterine Ablation Additional Past Surgical History / Comment(s): HEART CATH. BREAST BIOPSY-NEG. COLON POLYP - NEG. D&C. BILATERAL KNEE. NECK CYST. BOWEL RESECTION. VOCAL CORD. BRONCHOSCOPY 12-19-14 PER PT FOUND HERPES SIMPLES BLISTERS IN LUNGS. HAS HAD 15 BRONCHS.rt arm tendon sx Past Anesthesia/Blood Transfusion Reactions: Postoperative Nausea & Vomiting ( PONV) Additional Past Anesthesia/Blood Transfusion Reaction / Comment(s): Pt has never recieved blood. Past Psychological History: Anxiety Additional Psychological History / Comment(s): USES WALKER, CANE NEEDED. Smoking Status: Never smoker Past Alcohol Use History: None Reported Past Drug Use History: None Reported - Past Family History Father Family Medical History: Cancer, Congestive Heart Failure (CHF), CVA/TIA, Myocardial Infarction (AR), Prostate Disorder Additional Family Medical History / Comment(s): at age 84- chocked on a hot dog Mother Family Medical History: Cancer, Osteoarthritis (OA) Additional Family Medical History / Comment(s): mom is 84 breast ca surviver. Medications and Allergies Home Medications Medication Instructions Recorded Confirmed Type Albuterol Sulfate [Proair Hfa] 1 - 2 puff INHALATION RT-Q4H PRN 04/11/14 History Ascorbic Acid [Vitamin C] 500 mg PO DAILY 04/11/14 12/15/18 History EPINEPHrine (Auto Inject) [Epipen] 0.3 mg IM ONCE PRN 04/11/14 12/15/18 History Famotidine [Pepcid] 20 mg PO BID 04/11/14 12/15/18 History Zinc 50 mg PO DAILY 04/11/14 12/15/18 History Calcium Carbonate/Vitamin D3 1 tab PO DAILY 12/08/14 12/15/18 History [Calcium 600-Vit D3 400 Tablet] Nystatin [Nystop] 1 applic TOPICAL Q12H PRN 12/08/14 12/15/18 History Magnesium Oxide [Mag-Ox] 250 mg PO DAILY 12/18/14 12/15/18 History Furosemide [Lasix] 40 mg PO BID@0700,1500 04/22/15 12/15/18 History Potassium Chloride [Klor-Con 20] 20 meq PO DAILY 04/22/15 12/15/18 History ALPRAZolam [Xanax] 0.5 mg PO Q8H #90 tablet 05/11/15 12/15/18 Rx Mometasone/Formoterol [Dulera 200 2 puff INHALATION RT-BID 09/12/15 12/15/18 History Mcg/5 Mcg Inhaler] Warfarin [Coumadin] 5 mg PO Q48H 09/12/15 12/15/18 History Cetirizine HCl [Zyrtec] 10 mg PO DAILY 12/21/15 12/15/18 History Montelukast [Singulair] 10 mg PO HS 12/21/15 12/15/18 History Levothyroxine Sodium [Synthroid] 50 mcg PO DAILY 03/03/16 12/15/18 History Metoprolol Tartrate [Lopressor] 75 mg PO BID 01/09/17 12/15/18 History Nystatin 100,000 Unit/ml Susp 5 ml PO QID PRN 01/09/17 12/15/18 History [Mycostatin Oral Susp] Cholecalciferol [Vitamin D3] 5,000 unit PO DAILY 09/10/17 12/15/18 History L.acidoph,Paracasei, B.lactis 1 cap PO DAILY 09/10/17 12/15/18 History [Probiotic] Dicyclomine [Bentyl] 20 mg PO TID PRN 12/15/18 12/15/18 History Diphenox-Atrop 2.5-0.025 mg 1 tab PO QID PRN 12/15/18 12/15/18 History [Lomotil] Ipratropium-Albuterol Nebulize 3 ml INHALATION RT-QID PRN 12/15/18 12/15/18 History [Duoneb 0.5 mg-3 mg/3 ml Soln] Allergies Allergy/AdvReac Type Severity Reaction Status Date / Time Aminoglycosides Allergy Unknown Verified 12/15/18 13:45 honey Allergy Anaphylaxis Verified 12/15/18 13:45 moxifloxacin HCl Allergy Unknown Verified 12/15/18 13:45 [From Avelox] peanut Allergy Unknown Verified 12/15/18 13:45 azithromycin [From Zithromax] AdvReac Nausea & Verified 12/15/18 13:45 Vomiting & Diarrhea clindamycin AdvReac Dyspnea Verified 12/15/18 13:45 corn syrup AdvReac Nausea Verified 12/15/18 13:45 lactose AdvReac Nausea Verified 12/15/18 13:45 levofloxacin [From Levaquin] AdvReac Dyspnea Verified 12/15/18 13:45 neomycin [Neomycin] AdvReac Dyspnea Verified 12/15/18 13:45 omalizumab [From Xolair] AdvReac Dyspnea Verified 12/15/18 13:45 sulfamethoxazole AdvReac Diarrhea/co Verified 12/15/18 13:45 [From Bactrim] litis trimethoprim [From Bactrim] AdvReac Diarrhea/co Verified 12/15/18 13:45 litis Physical Exam Vitals: Vital Signs Temp Pulse Pulse Resp BP BP Pulse Ox 12/16/18 13:00 68 17 135/87 98 12/16/18 12:00 97.4 F L 68 21 137/76 98 12/16/18 11:54 72 12/16/18 11:47 66 12/16/18 08:12 76 12/16/18 08:05 97 F L 78 20 140/83 98 12/16/18 07:57 77 12/16/18 04:00 97.6 F 53 L 18 128/71 100 12/16/18 03:56 57 L 18 12/16/18 03:55 62 12/16/18 03:41 62 12/16/18 00:03 54 L 12/15/18 23:43 51 L 12/15/18 23:28 57 L 18 12/15/18 23:26 97.1 F L 57 L 18 125/71 100 12/15/18 20:26 85 22 12/15/18 20:13 88 22 12/15/18 20:00 97.4 F L 68 22 139/82 100 12/15/18 18:30 96.8 F L 73 19 144/85 100 12/15/18 18:00 98 F 71 16 128/79 97 12/15/18 16:40 69 16 137/77 98 12/15/18 15:35 73 18 132/72 98 12/15/18 14:56 80 18 140/88 98 12/15/18 14:19 91 21 147/92 97 12/15/18 14:06 95 20 166/97 97 12/15/18 13:55 24 12/15/18 13:49 84 12/15/18 13:20 98.9 F 91 18 136/86 95 Intake and Output 12/15/18 12/16/18 12/16/18 22:59 06:59 14:59 Intake Total 300 Output Total 265 Balance 35 Intake: IV 300 Azithromycin 500 mg In 250 Sodium Chloride 0.9% 250 ml @ 250 mls/hr IVPB Q24H JAYNE Rx#:[id number] Sodium Chloride 0.9% 1, 50 000 ml @ 50 mls/hr IV . Q20H JAYNE Rx#:[id number] Output: Urine 265 Other: Voiding Method Bedside Commode Bedside Commode # Voids 1 # Bowel Movements 0 Weight 132 kg Gen. appearance the patient is calm, slightly anxious, utilizing a BiPAP at a pressure of 15/7 cm of water. Head exam was generally normal. There was no scleral icterus or corneal arcus. Mucous membranes were moist. Neck was supple and without jugular venous distension, thyromegaly, or carotid bruits. Carotids were easily palpable bilaterally. There was no adenopathy. Lungs sounds are diminished and there is prolongation of expiratory phase of breathing. There is diffuse expiratory wheezes throughout the lung raphael bilaterally. Cardiac exam revealed the PMI to be normally situated and sized. The rhythm was regular and no extrasystoles were noted during several minutes of auscultation. The first and second heart sounds were normal and physiologic splitting of the second heart sound was noted. There were no murmurs, rubs, clicks, or gallops. Abdominal exam revealed normal bowel sounds. The abdomen was soft, non-tender, and without masses, organomegaly, or appreciable enlargement of the abdominal aorta. Examination of the extremities revealed easily palpable radial, femoral and pedal pulses. There was no cyanosis, clubbing or edema. Examination of the skin revealed no evidence of significant rashes, suspicious appearing nevi or other concerning lesions. Neurologically awake and alert 3 and there is no focal neurological deficit Psychiatrically there is increased history of anxiety. Results - Laboratory Findings CBC and BMP: 12/16/18 07:15 12/16/18 07:15 PT/INR, D-dimer PT 14.1 sec (9.0-12.0) H 12/15/18 13:37 INR 1.4 (<1.2) H 12/15/18 13:37 Abnormal lab findings: Abnormal Labs 12/15/18 12/15/18 12/15/18 13:37 13:37 13:37 WBC 12.7 H Neutrophils # 9.6 H PT 14.1 H INR 1.4 H Chloride BUN 24 H Glucose 142 H POC Glucose (mg/dL) Total Creatine Kinase 12/16/18 12/16/18 12/16/18 06:24 07:15 07:15 WBC Neutrophils # PT INR Chloride 109 H BUN 25 H Glucose 131 H POC Glucose (mg/dL) 129 H Total Creatine Kinase 23 L 12/16/18 11:52 WBC Neutrophils # PT INR Chloride BUN Glucose POC Glucose (mg/dL) 122 H Total Creatine Kinase - Diagnostic Findings Chest x-ray: image reviewed Assessment and Plan Plan: Assessment 1 acute exacerbation of chronic severe persistent bronchial asthma 2 severe tracheobronchomalacia 3 paradoxic vocal cord dysfunction 4 acute right lower lobe pneumonia, community-acquired 5 acute hypoxic respiratory failure secondary to above. The patient is actively bronchospastic and wheezy and the patient is requiring BiPAP for respiratory support 6 previous history of pulmonary embolism maintained on anticoagulation. 7 obesity with a BMI of 45.6 8 obstructive sleep apnea maintained on CPAP therapy on outpatient basis 9 chronic anxiety 10 acid reflux 11 hypertension 12 hypothyroidism 13 CHF with systolic dysfunction and ejection fraction of 40-45% Plan We'll move the patient to the intensive care unit. We'll use Xanax for anxiety. Continue BiPAP for respiratory support her pressure 15/7 cm of water. Continue DuoNeb nebulized treatments around the clock, IV Solu Medrol, and stop the Symbicort and replaced with a combination of Perforomist and Pulmicort overestimates [id number]. Put the patient examination of IV Rocephin and Zithromax. Fluid maintenance. We will offer DVT and GI prophylaxis. We'll continue to follow make further recommendations based on her progress.
[2018-12-16 17:03] LABS: Glucose,Whole Blood 140 mg/dL (75-99)
[2018-12-16] MEDS: WARFARIN 5 MG TAB PO SCH (17:18)
[2018-12-16] MEDS: FORMOTEROL FUMARATE 20 MCG/2 ML NEBU INHALATION SCH (20:07)
[2018-12-16] MEDS: BUDESONIDE 0.5 MG/2 ML NEBU INHALATION SCH (20:07)
[2018-12-16 20:47] LABS: Glucose,Whole Blood 139 mg/dL (75-99)
[2018-12-16] MEDS: MONTELUKAST 10 MG TAB PO SCH (21:37)
[2018-12-16] MEDS: MORPHINE SULFATE 2 MG/ML SYRINGE IV PRN (21:37)
[2018-12-17] MEDS: methylPREDNISolone SOD SUCCI 125 MG/2 ML VIAL IV SCH ×5 (00:21→23:01)
[2018-12-17] MEDS: ALPRAZolam 0.5 MG TAB PO SCH ×3 (00:21→17:15)
[2018-12-17] MEDS: METOPROLOL TARTRATE 25 MG TAB PO SCH ×3 (00:21→22:13)
[2018-12-17] MEDS: IPRATROPIUM-ALBUTEROL 3 ML NEB INHALATION SCH ×6 (03:26→23:29)
[2018-12-17 06:21] LABS: Basophils % (A) 0 %; Eosinophils # (A) 0.1 k/uL (0-0.7); Eosinophils % (A) 0 %; HCT 37.4 % (34.0-46.0); HGB 12.2 gm/dL (11.4-16.0); Lymphocytes # (A) 1.7 k/uL (1.0-4.8); Lymphocytes % (A) 13 %; MCH 30.7 pg (25.0-35.0); MCHC 32.7 g/dL (31.0-37.0); MCV 94.1 fL (80.0-100.0); Mean Platelet Volume 7.4; Monocytes # (A) 0.4 k/uL (0-1.0); Monocytes % (A) 3 %; Neutrophils # (A) 10.9 k/uL (1.3-7.7); Neutrophils % (A) 83 %; Platelet Count 194 k/uL (150-450); RBC 3.97 m/uL (3.80-5.40); RDW 13.2 % (11.5-15.5); WBC 13.1 k/uL (3.8-10.6)
[2018-12-17 06:32] LABS: INR 1.5 (<1.2)
[2018-12-17 06:33] LABS: Prothrombin Time 15.5 sec (9.0-12.0)
[2018-12-17 06:34] LABS: Albumin 3.3 g/dL (3.5-5.0); Calcium 8.7 mg/dL (8.4-10.2); Magnesium 2.4 mg/dL (1.6-2.3); Potassium 3.9 mmol/L (3.5-5.1); Total Bilirubin 0.6 mg/dL (0.2-1.3); Total Protein 5.9 g/dL (6.3-8.2)
[2018-12-17] MEDS: FUROSEMIDE 40 MG TAB PO SCH ×2 (06:48→17:16)
[2018-12-17] MEDS: LEVOTHYROXINE 50 MCG TAB PO SCH (06:49)
--- NOTE | 2018-12-17 07:23 | XR ---
EXAMINATION TYPE: XR chest 1V DATE OF EXAM: 12/17/2018 COMPARISON: 12/15/2018 HISTORY: Shortness of breath TECHNIQUE: Single frontal view of the chest is obtained. FINDINGS: There is new haziness at the left hemidiaphragm in its midportion and a retrocardiac airsp khang. This likely relates to minimal subsegmental atelectasis. Remainder the lungs are clear. Cardiome diastinal silhouette is mildly enlarged. Right-sided atelectasis has resolved. Osseous structures are grossly intact. IMPRESSION: Shifting subsegmental atelectasis, resolved at the right lung base and development of th e left lung base.
[2018-12-17 07:35] LABS: Glucose,Whole Blood 159 mg/dL (75-99)
[2018-12-17] MEDS: INSULIN ASPART (NovoLOG) 100 UNIT/ML VIAL SQ SCH ×4 (08:00→22:23)
[2018-12-17] MEDS: BUDESONIDE 0.5 MG/2 ML NEBU INHALATION SCH ×2 (08:40→19:40)
[2018-12-17] MEDS: FORMOTEROL FUMARATE 20 MCG/2 ML NEBU INHALATION SCH ×2 (08:40→19:40)
[2018-12-17] MEDS: FAMOTIDINE 20 MG TAB PO SCH ×2 (08:43→22:13)
[2018-12-17] MEDS: guaiFENesin 600 MG TABLET.ER PO SCH ×2 (08:43→22:13)
[2018-12-17] MEDS: MAGNESIUM OXIDE 400 MG TAB PO SCH (08:43)
[2018-12-17] MEDS: SODIUM CHLORIDE 0.9% 1,000 ML IV SCH (08:48)
[2018-12-17] MEDS ORDERED: Potassium Replacement Protocol 1 EACH MISC MISCELLANE PRN (08:51)
[2018-12-17] MEDS ORDERED: POTASSIUM CHLORIDE ER 20 MEQ TAB.ER PO SCH (09:00)
--- NOTE | 2018-12-17 10:24 | P.PN ---
Subjective Progress Note Date: 12/17/18 The patient reports some improvement of her shortness of breath still having overt wheezes have not improved, she is reporting cough seal bark nonproductive, was wearing BiPAP overnight. Patient reports compliance with CPAP therapy for her ARAMIS at home. She is currently receiving breathing treatment continues to be bronchospastic. Objective - Vital Signs Vital signs: Vital Signs Temp 96.9 F L 12/17/18 04:00 Pulse 85 12/17/18 09:22 Resp 13 12/17/18 07:00 BP 141/91 12/17/18 07:00 Pulse Ox 100 12/17/18 07:00 Intake & Output 12/16/18 12/17/18 12/17/18 18:59 06:59 18:59 Intake Total 550 600 100 Output Total 505 600 95 Balance 45 0 5 Intake: IV 550 600 100 Azithromycin 500 mg In 250 Sodium Chloride 0.9% 250 ml @ 250 mls/hr IVPB Q24H JANYE Rx#:[id number] Sodium Chloride 0.9% 1, 300 600 100 000 ml @ 50 mls/hr IV . Q20H JAYNE Rx#:[id number] Output: Urine 505 600 95 Other: Voiding Method Indwelling Catheter Indwelling Catheter # Bowel Movements 0 - Exam Constitutional: Mild distress, conversant, pleasant Eyes: Anicteric sclerae, moist conjunctiva, no lid-lag, PERRLA ENMT: NC/AT,Oropharynx clear, no erythema, exudates Neck:Supple, FROM, no masses, or JVD, No carotid bruits; No thyromegaly Lungs: Diminished in the bases, with biphasic wheezes and poor aeration with seal bark cough on 4 L nasal cannula Cardiovascular: Heart regular in rate and rhythm, No murmurs, gallops, or rubs no peripheral edema Abdominal: Soft Nontender, nom distended, no guarding, no rebound or rigidity, Normoactive bowel sounds No hepatomegaly, No splenomegaly, No palpable mass No abdominal wall hernia noted Skin: Normal temperature, tone, texture, turgor, No induration No subcutaneous nodules, No rash, lesions, No ulcers Extremities:No digital cyanosis No clubbing, Pedal pulses intact and symmetrical Radial pulses intact and symmetrical Normal gait and station, No calf tenderness Psychiatric: Alert and oriented to person, place and time, Appropriate affect Intact judgement Neuro: Muscles Strength 5/5 in all 4 extremities, Sensation to light touch grossly present throughout, Cranial nerves II-XII grossly intact. No focal sensory deficits - Labs CBC & Chem 7: 12/17/18 05:00 12/17/18 06:00 Labs: Abnormal Lab Results - Last 24 Hours (Table) 12/16/18 12/16/18 12/16/18 Range/Units 11:52 17:02 20:46 WBC (3.8-10.6) k/uL Neutrophils # (1.3-7.7) k/uL PT (9.0-12.0) sec INR (<1.2) BUN (7-17) mg/dL Glucose (74-99) mg/dL POC Glucose (mg/dL) 122 H 140 H 139 H (75-99) mg/dL Magnesium (1.6-2.3) mg/dL Total Protein (6.3-8.2) g/dL Albumin (3.5-5.0) g/dL 12/17/18 12/17/18 12/17/18 Range/Units 05:00 06:00 06:20 WBC 13.1 H (3.8-10.6) k/uL Neutrophils # 10.9 H (1.3-7.7) k/uL PT 15.5 H (9.0-12.0) sec INR 1.5 H (<1.2) BUN 27 H (7-17) mg/dL Glucose 131 H (74-99) mg/dL POC Glucose (mg/dL) (75-99) mg/dL Magnesium 2.4 H (1.6-2.3) mg/dL Total Protein 5.9 L (6.3-8.2) g/dL Albumin 3.3 L (3.5-5.0) g/dL 12/17/18 Range/Units 07:34 WBC (3.8-10.6) k/uL Neutrophils # (1.3-7.7) k/uL PT (9.0-12.0) sec INR (<1.2) BUN (7-17) mg/dL Glucose (74-99) mg/dL POC Glucose (mg/dL) 159 H (75-99) mg/dL Magnesium (1.6-2.3) mg/dL Total Protein (6.3-8.2) g/dL Albumin (3.5-5.0) g/dL Microbiology - Last 24 Hours (Table) 12/15/18 13:37 Blood Culture - Preliminary Blood No Growth after 24 hours Assessment and Plan (1) Acute respiratory failure with hypoxia Narrative/Plan: * Secondary to acute asthma exacerbation superimposed on underlying community- acquired pneumonia * Continue supplemental oxygen at 4 L nasal cannula with plans for BiPAP at night and patient with underlying tracheomalacia , asthma and obstructive sleep apnea * Chest x-ray this morning showing subsegmental atelectasis of the left lung base Current Visit: Yes Status: Acute Code(s): J96.01 - ACUTE RESPIRATORY FAILURE WITH HYPOXIA SNOMED Code(s): 34921126 (2) Acute severe exacerbation of severe persistent asthma Narrative/Plan: * Triggered by likely pneumonia * Continue systemic steroids with Solu-Medrol, continue Perforomist and Pulmicort, Mucinex along with scheduled and when necessary DuoNeb breathing treatments * Pulmonary following appreciate recommendations Current Visit: Yes Status: Acute Code(s): J45.51 - SEVERE PERSISTENT ASTHMA WITH (ACUTE) EXACERBATION SNOMED Code(s): 305512866 (3) Community acquired pneumonia Narrative/Plan: * Afebrile leukocytosis of 13.1 * Continue empiric antibiotic coverage with IV Rocephin and azithromycin Current Visit: Yes Status: Acute Code(s): J18.9 - PNEUMONIA, UNSPECIFIED ORGANISM SNOMED Code(s): 863634370 (4) Essential hypertension Narrative/Plan: * Blood pressure stable controlled * Continue metoprolol and Lasix Current Visit: Yes Status: Acute Code(s): I10 - ESSENTIAL (PRIMARY) HYPERTENSION SNOMED Code(s): 84327246 (5) Tracheomalacia Current Visit: No Status: Acute Code(s): J39.8 - OTHER SPECIFIED DISEASES OF UPPER RESPIRATORY TRACT SNOMED Code(s): 50367932 Plan: * Anticipated discharge 3-5 days * Continue with current treatment plan
[2018-12-17 12:09] LABS: Glucose,Whole Blood 126 mg/dL (75-99)
--- NOTE | 2018-12-17 12:24 | P.PN ---
Subjective Progress Note Date: 12/17/18 Principal diagnosis: Acute exacerbation of severe persistent asthma 8-year-old female patient with known history of bronchial asthma, CVA check of bronchomalacia, history of paradoxic vocal cord dysfunction, who presented to the [facility] and yesterday because of increased shortness of breath, active bronchospasm wheezing. The patient was having frequent coughing episodes. On few occasions, she experienced paradoxical vocal cord dysfunction she was having some respiratory stridor's also. The patient was placed on a BiPAP at a patient got minute to the hospital. Chest exit showed a early right lower lobe pulmonary infiltrate that was suggestive an underlying pneumonia. The patient was having increased productive cough with copious amount of purulent material in addition to nasal congestion and rhinorrhea on outpatient basis. I have the patient a combination of Symbicort and Spiriva in addition to albuterol nebulized treatment when necessary. She also has a CPAP machine at home for obstructive sleep apnea. No angina. No palpitation. I came and saw this patient and father quite bronchospastic and wheezy. At times she was having some respiratory stridor especially when she induces paradoxic vocal cords activity. She had received benzodiazepines and I also ordered some Ativan and Xanax on a when necessary basis. Note that this will be quite extensive for the floor nurses to take the patient got transferred to the intensive care unit. No altered mentation. INR is at 1.4 and the patient on long-term and coagulation regarding previous history of pulmonary embolism. No angina. No major swelling lower extremities. No fever or chills. She will be started on antibiotics and systemic steroids. No syncope. No altered mentation. Patient was reevaluated today on 12/17/2018, seems to be doing better, she was on BiPAP overnight, today she is on nasal cannula, seems to be very comfortable, and in no distress. Patient continues to have intermittent episodes of cough and wheezing. Remains on updrafts, and bronchodilators. This morning she is off BiPAP. All labs were reviewed, her medications were reviewed. Objective - Vital Signs Vital signs: Vital Signs Temp 96.9 F L 12/17/18 04:00 Pulse 68 12/17/18 12:03 Resp 8 L 12/17/18 11:00 BP 141/86 12/17/18 11:00 Pulse Ox 99 12/17/18 11:00 Intake & Output 12/16/18 12/17/18 12/17/18 18:59 06:59 18:59 Intake Total 550 600 250 Output Total 505 600 445 Balance 45 0 -195 Intake: IV 550 600 250 Azithromycin 500 mg In 250 Sodium Chloride 0.9% 250 ml @ 250 mls/hr IVPB Q24H JAYNE Rx#:[id number] Sodium Chloride 0.9% 1, 300 600 250 000 ml @ 50 mls/hr IV . Q20H JAYNE Rx#:[id number] Output: Urine 505 600 445 Other: Voiding Method Indwelling Catheter Indwelling Catheter # Bowel Movements 0 - Exam Physical Exam: Revealed a 58-year-old female in no distress. Head: Atraumatic, normocephalic. HEENT:[Neck is supple.] [No neck masses.] [No thyromegaly.] [No JVD.] PERRLA, EOMI, no active Chest: [Rhonchi and wheezes noted bilaterally more so on forced expiratory maneuver. Cardiac Exam: [Normal S1 and S2, no S3 gallop, no murmur.] Abdomen: [Soft, nontender, no megaly, no rebound, no guarding, normal bowel sounds.] Extremities: [No clubbing, no edema, no cyanosis.] Neurological Exam: [No focal neurologic deficit.] Alert oriented 3. Psychiatric: Normal mood affect and mental status examination. Slightly anxious. Skin: No rashes. - Labs CBC & Chem 7: 12/17/18 05:00 12/17/18 06:00 Labs: Abnormal Lab Results - Last 24 Hours (Table) 12/16/18 12/16/18 12/17/18 Range/Units 17:02 20:46 05:00 WBC 13.1 H (3.8-10.6) k/uL Neutrophils # 10.9 H (1.3-7.7) k/uL PT (9.0-12.0) sec INR (<1.2) BUN (7-17) mg/dL Glucose (74-99) mg/dL POC Glucose (mg/dL) 140 H 139 H (75-99) mg/dL Magnesium (1.6-2.3) mg/dL Total Protein (6.3-8.2) g/dL Albumin (3.5-5.0) g/dL 12/17/18 12/17/18 12/17/18 Range/Units 06:00 06:20 07:34 WBC (3.8-10.6) k/uL Neutrophils # (1.3-7.7) k/uL PT 15.5 H (9.0-12.0) sec INR 1.5 H (<1.2) BUN 27 H (7-17) mg/dL Glucose 131 H (74-99) mg/dL POC Glucose (mg/dL) 159 H (75-99) mg/dL Magnesium 2.4 H (1.6-2.3) mg/dL Total Protein 5.9 L (6.3-8.2) g/dL Albumin 3.3 L (3.5-5.0) g/dL Microbiology - Last 24 Hours (Table) 12/15/18 13:37 Blood Culture - Preliminary Blood No Growth after 24 hours Assessment and Plan Assessment: Impression: 1 acute exacerbation of severe persistent bronchial asthma 2 severe tracheobronchomalacia and recurrent episodes of exacerbation. 3 history of vocal cord dysfunction. 4 history of pulmonary embolism maintained on anticoagulation therapy 5 acute right lower lobe pneumonia/community-acquired 6 obstructive sleep apnea on CPAP at home 7 generalized anxiety disorder 8 GERD without esophagitis and 9 hypothyroidism 10 benign essential hypertension 11 chronic systolic dysfunction, ejection fraction of 40-45%. Recommendation: Continue present treatment plan including anxiolytics, bronchodilators, steroids, antibiotics, BiPAP, continue Rocephin and Zithromax, continue GI and DVT prophylaxis, we'll follow closely. I will keep the patient in the ICU for the next 24 hours, and if she remains stable, may consider transferring her out of the ICU in the next 24 hours. Time with Patient: Less than 30
[2018-12-17 16:58] LABS: Glucose,Whole Blood 113 mg/dL (75-99)
[2018-12-17] MEDS: AZITHROMYCIN 500 MG in SODIUM CHLORIDE 0.9% 250 ML IVPB SCH (17:18)
[2018-12-17] MEDS: MONTELUKAST 10 MG TAB PO SCH (22:13)
[2018-12-17] MEDS: MORPHINE SULFATE 2 MG/ML SYRINGE IV PRN (22:14)
[2018-12-17 22:17] LABS: Glucose,Whole Blood 133 mg/dL (75-99)
[2018-12-18] MEDS: IPRATROPIUM-ALBUTEROL 3 ML NEB INHALATION SCH ×5 (03:25→20:58)
[2018-12-18] MEDS: ALPRAZolam 0.5 MG TAB PO SCH ×4 (04:12→23:00)
[2018-12-18 05:34] LABS: Basophils % (A) 0 %; Eosinophils % (A) 0 %; HCT 39.5 % (34.0-46.0); HGB 12.8 gm/dL (11.4-16.0); Lymphocytes # (A) 1.6 k/uL (1.0-4.8); Lymphocytes % (A) 13 %; MCH 30.8 pg (25.0-35.0); MCHC 32.5 g/dL (31.0-37.0); Mean Platelet Volume 7.5; Monocytes # (A) 0.4 k/uL (0-1.0); Monocytes % (A) 3 %; Neutrophils # (A) 10.4 k/uL (1.3-7.7); Neutrophils % (A) 83 %; Platelet Count 197 k/uL (150-450); RBC 4.16 m/uL (3.80-5.40); RDW 13.1 % (11.5-15.5); WBC 12.5 k/uL (3.8-10.6)
[2018-12-18 05:45] LABS: Albumin 3.2 g/dL (3.5-5.0); Calcium 8.5 mg/dL (8.4-10.2); Magnesium 2.3 mg/dL (1.6-2.3); Potassium 4.1 mmol/L (3.5-5.1); Total Bilirubin 0.5 mg/dL (0.2-1.3); Total Protein 5.8 g/dL (6.3-8.2)
[2018-12-18 06:24] LABS: Glucose,Whole Blood 125 mg/dL (75-99)
[2018-12-18] MEDS: INSULIN ASPART (NovoLOG) 100 UNIT/ML VIAL SQ SCH ×4 (06:25→20:52)
[2018-12-18] MEDS: LEVOTHYROXINE 50 MCG TAB PO SCH (06:28)
[2018-12-18] MEDS: SODIUM CHLORIDE 0.9% 1,000 ML IV SCH ×2 (06:28→23:01)
[2018-12-18] MEDS: FUROSEMIDE 40 MG TAB PO SCH ×2 (06:28→15:08)
[2018-12-18] MEDS: methylPREDNISolone SOD SUCCI 125 MG/2 ML VIAL IV SCH ×4 (06:28→23:00)
[2018-12-18] MEDS: FAMOTIDINE 20 MG TAB PO SCH ×2 (08:05→20:02)
[2018-12-18] MEDS: guaiFENesin 600 MG TABLET.ER PO SCH ×2 (08:06→20:02)
[2018-12-18] MEDS: MAGNESIUM OXIDE 400 MG TAB PO SCH (08:06)
[2018-12-18] MEDS: BUDESONIDE 0.5 MG/2 ML NEBU INHALATION SCH ×2 (08:09→20:57)
[2018-12-18] MEDS: FORMOTEROL FUMARATE 20 MCG/2 ML NEBU INHALATION SCH ×2 (08:09→20:57)
[2018-12-18] MEDS: METOPROLOL TARTRATE 25 MG TAB PO SCH ×2 (08:19→20:02)
--- NOTE | 2018-12-18 09:14 | XR ---
EXAMINATION TYPE: XR chest 1V DATE OF EXAM: 12/18/2018 COMPARISON: 12/17/2018 HISTORY: 58-year-old female pneumonia, ICU management TECHNIQUE: Single frontal view of the chest is obtained. FINDINGS: Heart upper limits of normal in size. Aorta and pulmonary vasculature within normal limits. Very mild patchy peripheral bibasilar densities are present, slightly increased on the right and improved on t he left. IMPRESSION: Minimal patchy density at the costophrenic angles, probably subsegmental atelectasis. Some improvemen t on the left and some increase on the right.
[2018-12-18] MEDS: AZITHROMYCIN 500 MG in SODIUM CHLORIDE 0.9% 250 ML IVPB SCH (11:13)
--- NOTE | 2018-12-18 11:37 | P.PN ---
Subjective Progress Note Date: 12/18/18 Principal diagnosis: Acute exacerbation of severe persistent asthma 8-year-old female patient with known history of bronchial asthma, CVA check of bronchomalacia, history of paradoxic vocal cord dysfunction, who presented to the [facility] and yesterday because of increased shortness of breath, active bronchospasm wheezing. The patient was having frequent coughing episodes. On few occasions, she experienced paradoxical vocal cord dysfunction she was having some respiratory stridor's also. The patient was placed on a BiPAP at a patient got minute to the hospital. Chest exit showed a early right lower lobe pulmonary infiltrate that was suggestive an underlying pneumonia. The patient was having increased productive cough with copious amount of purulent material in addition to nasal congestion and rhinorrhea on outpatient basis. I have the patient a combination of Symbicort and Spiriva in addition to albuterol nebulized treatment when necessary. She also has a CPAP machine at home for obstructive sleep apnea. No angina. No palpitation. I came and saw this patient and father quite bronchospastic and wheezy. At times she was having some respiratory stridor especially when she induces paradoxic vocal cords activity. She had received benzodiazepines and I also ordered some Ativan and Xanax on a when necessary basis. Note that this will be quite extensive for the floor nurses to take the patient got transferred to the intensive care unit. No altered mentation. INR is at 1.4 and the patient on long-term and coagulation regarding previous history of pulmonary embolism. No angina. No major swelling lower extremities. No fever or chills. She will be started on antibiotics and systemic steroids. No syncope. No altered mentation. Patient was reevaluated today on 12/17/2018, seems to be doing better, she was on BiPAP overnight, today she is on nasal cannula, seems to be very comfortable, and in no distress. Patient continues to have intermittent episodes of cough and wheezing. Remains on updrafts, and bronchodilators. This morning she is off BiPAP. All labs were reviewed, her medications were reviewed. Patient was reevaluated today on 12/18/2018, continues to steadily improve, but not to the point of being discharged home. Patient has less cough and less wheezing less shortness of breath, tolerating nasal cannula quite well this morning. She continues to have intermittent episodes of cough and wheezing. And noted to be more so when she is anxious. Labs were reviewed she had a relatively normal CBC and the relatively normal electrolytes. Chest x-ray was also reviewed, continues to have some subsegmental atelectasis improved compared to the previous chest x-ray especially at the left base. Objective - Vital Signs Vital signs: Vital Signs Temp 97.7 F 12/18/18 08:00 Pulse 54 L 12/18/18 11:00 Resp 11 L 12/18/18 11:00 BP 140/78 12/18/18 11:00 Pulse Ox 98 12/18/18 11:00 Intake & Output 12/17/18 12/18/18 12/18/18 18:59 06:59 18:59 Intake Total 600 560 250 Output Total 1225 830 300 Balance -625 -270 -50 Weight 123.1 kg Intake: IV 600 560 250 Sodium Chloride 0.9% 1, 550 560 150 000 ml @ 50 mls/hr IV . Q20H [facility] Rx#:[id number] cefTRIAXone 1 gm In 50 100 Sodium Chloride 0.9% 50 ml @ 100 mls/hr IVPB Q24HR [facility] Rx#:[id number] Output: Urine 1225 830 300 Other: Voiding Method Indwelling Catheter Indwelling Catheter Indwelling Catheter - Exam Physical Exam: Revealed a 58-year-old female in no distress. Slightly anxious. Head: Atraumatic, normocephalic. HEENT:[Neck is supple.] [No neck masses.] [No thyromegaly.] [No JVD.] PERRLA, EOMI, no active Chest: [Rhonchi and wheezes noted bilaterally persist bilaterally more so on forced expiratory maneuver. Cardiac Exam: [Normal S1 and S2, no S3 gallop, no murmur.] Abdomen: [Soft, nontender, no megaly, no rebound, no guarding, normal bowel sounds.] Extremities: [No clubbing, no edema, no cyanosis.] Neurological Exam: [No focal neurologic deficit.] Alert oriented 3. Psychiatric: Normal mood affect and mental status examination. Slightly anxious. Skin: No rashes. - Labs CBC & Chem 7: 12/18/18 05:19 12/18/18 05:19 Labs: Abnormal Lab Results - Last 24 Hours (Table) 12/17/18 12/17/18 12/17/18 Range/Units 12:07 16:57 22:15 WBC (3.8-10.6) k/uL Neutrophils # (1.3-7.7) k/uL BUN (7-17) mg/dL Glucose (74-99) mg/dL POC Glucose (mg/dL) 126 H 113 H 133 H (75-99) mg/dL Total Protein (6.3-8.2) g/dL Albumin (3.5-5.0) g/dL 12/18/18 12/18/18 12/18/18 Range/Units 05:19 05:19 06:23 WBC 12.5 H (3.8-10.6) k/uL Neutrophils # 10.4 H (1.3-7.7) k/uL BUN 32 H (7-17) mg/dL Glucose 129 H (74-99) mg/dL POC Glucose (mg/dL) 125 H (75-99) mg/dL Total Protein 5.8 L (6.3-8.2) g/dL Albumin 3.2 L (3.5-5.0) g/dL Microbiology - Last 24 Hours (Table) 12/15/18 13:37 Blood Culture - Preliminary Blood No Growth after 48 hours Assessment and Plan Assessment: Impression: 1 acute exacerbation of severe persistent bronchial asthma 2 severe tracheobronchomalacia and recurrent episodes of exacerbation. 3 history of vocal cord dysfunction. 4 history of pulmonary embolism maintained on anticoagulation therapy 5 acute right lower lobe pneumonia/community-acquired 6 obstructive sleep apnea on CPAP at home 7 generalized anxiety disorder 8 GERD without esophagitis and 9 hypothyroidism 10 benign essential hypertension 11 chronic systolic dysfunction, ejection fraction of 40-45%. Recommendation: Plan to continue the same medications including steroids and antibiotics bronchodilators patient is still on Rocephin and Zithromax, I plan to transfer the patient out of the ICU to a regular medical floor, we will keep a BiPAP at bedside, not quite ready for discharge planning, but I believe it is safe to transfer the patient out of the ICU today. Medication would basically remained the same. We'll continue to follow. Condition remains guarded, patient has clearly multiple complex medical issues as noted above. Continue anxiolytics. C Time with Patient: Less than 30
[2018-12-18 12:31] LABS: Glucose,Whole Blood 100 mg/dL (75-99)
[2018-12-18 17:20] LABS: Glucose,Whole Blood 139 mg/dL (75-99)
[2018-12-18] MEDS: WARFARIN 5 MG TAB PO SCH (17:36)
--- NOTE | 2018-12-18 19:00 | P.PN ---
Subjective Progress Note Date: 12/18/18 Patient seen and examined at bedside, has not had her updraft this morning, still complain of cough productive now still wheezing and short of breath. Was compliant with BiPAP overnight now back on 3 L nasal cannula. Has been able to use IS [id number] cc. no acute events overnight Objective - Vital Signs Vital signs: Vital Signs Temp 98.0 F 12/18/18 15:00 Pulse 88 12/18/18 16:44 Resp 20 12/18/18 15:00 BP 115/71 12/18/18 15:00 Pulse Ox 97 12/18/18 16:34 Intake & Output 12/17/18 12/18/18 12/18/18 18:59 06:59 18:59 Intake Total 600 560 450 Output Total 1225 830 300 Balance -625 -270 150 Weight 123.1 kg Intake: IV 600 560 250 Sodium Chloride 0.9% 1, 550 560 150 000 ml @ 50 mls/hr IV . Q20H [facility] Rx#:[id number] cefTRIAXone 1 gm In 50 100 Sodium Chloride 0.9% 50 ml @ 100 mls/hr IVPB Q24HR [facility] Rx#:[id number] Oral 200 Output: Urine 1225 830 300 Other: Voiding Method Indwelling Catheter Indwelling Catheter Toilet # Voids 1 - Exam Constitutional: Mild distress, conversant, pleasant Eyes: Anicteric sclerae, moist conjunctiva, no lid-lag, PERRLA ENMT: NC/AT,Oropharynx clear, no erythema, exudates Neck:Supple, FROM, no masses, or JVD, No carotid bruits; No thyromegaly Lungs: Diminished in the bases, with biphasic wheezes and poor aeration with seal bark cough on 4 L nasal cannula Cardiovascular: Heart regular in rate and rhythm, No murmurs, gallops, or rubs no peripheral edema Abdominal: Soft Nontender, nom distended, no guarding, no rebound or rigidity, Normoactive bowel sounds No hepatomegaly, No splenomegaly, No palpable mass No abdominal wall hernia noted Skin: Normal temperature, tone, texture, turgor, No induration No subcutaneous nodules, No rash, lesions, No ulcers Extremities:No digital cyanosis No clubbing, Pedal pulses intact and symmetrical Radial pulses intact and symmetrical Normal gait and station, No calf tenderness Psychiatric: Alert and oriented to person, place and time, Appropriate affect Intact judgement Neuro: Muscles Strength 5/5 in all 4 extremities, Sensation to light touch grossly present throughout, Cranial nerves II-XII grossly intact. No focal sensory deficits - Labs CBC & Chem 7: 12/18/18 05:19 12/18/18 05:19 Labs: Abnormal Lab Results - Last 24 Hours (Table) 12/17/18 12/18/18 12/18/18 Range/Units 22:15 05:19 05:19 WBC 12.5 H (3.8-10.6) k/uL Neutrophils # 10.4 H (1.3-7.7) k/uL BUN 32 H (7-17) mg/dL Glucose 129 H (74-99) mg/dL POC Glucose (mg/dL) 133 H (75-99) mg/dL Total Protein 5.8 L (6.3-8.2) g/dL Albumin 3.2 L (3.5-5.0) g/dL 12/18/18 12/18/18 12/18/18 Range/Units 06:23 12:25 17:16 WBC (3.8-10.6) k/uL Neutrophils # (1.3-7.7) k/uL BUN (7-17) mg/dL Glucose (74-99) mg/dL POC Glucose (mg/dL) 125 H 100 H 139 H (75-99) mg/dL Total Protein (6.3-8.2) g/dL Albumin (3.5-5.0) g/dL Microbiology - Last 24 Hours (Table) 12/18/18 08:10 Sputum Culture - Preliminary Sputum 12/15/18 13:37 Blood Culture - Preliminary Blood No Growth after 72 hours Assessment and Plan (1) Acute respiratory failure with hypoxia Narrative/Plan: * Secondary to acute asthma exacerbation superimposed on underlying community- acquired pneumonia * Continue supplemental oxygen at 4 L nasal cannula with plans for BiPAP at night and patient with underlying tracheomalacia , asthma and obstructive sleep apnea * Chest x-ray this morning showing subsegmental atelectasis of the left lung base Current Visit: Yes Status: Acute Code(s): J96.01 - ACUTE RESPIRATORY FAILURE WITH HYPOXIA SNOMED Code(s): 95175846 (2) Acute severe exacerbation of severe persistent asthma Narrative/Plan: * Triggered by likely pneumonia * Continue systemic steroids with Solu-Medrol, continue Perforomist and Pulmicort, Mucinex along with scheduled and when necessary DuoNeb breathing treatments * Pulmonary following appreciate recommendations Status: Acute Code(s): J45.51 - SEVERE PERSISTENT ASTHMA WITH (ACUTE) EXACERBATION SNOMED Code(s): 191027481 (3) Community acquired pneumonia Narrative/Plan: * Afebrile leukocytosis of 13.1 * Continue empiric antibiotic coverage with IV Rocephin and azithromycin Current Visit: Yes Status: Acute Code(s): J18.9 - PNEUMONIA, UNSPECIFIED ORGANISM SNOMED Code(s): 814116387 (4) Essential hypertension Current Visit: Yes Status: Acute Code(s): I10 - ESSENTIAL (PRIMARY) HYPERTENSION SNOMED Code(s): 23350547 (5) Tracheomalacia Current Visit: No Status: Acute Code(s): J39.8 - OTHER SPECIFIED DISEASES OF UPPER RESPIRATORY TRACT SNOMED Code(s): 25894620
[2018-12-18] MEDS: MONTELUKAST 10 MG TAB PO SCH (20:02)
[2018-12-18 20:23] LABS: Glucose,Whole Blood 148 mg/dL (75-99)
[2018-12-19] MEDS: IPRATROPIUM-ALBUTEROL 3 ML NEB INHALATION SCH ×7 (00:23→23:55)
[2018-12-19] MEDS: methylPREDNISolone SOD SUCCI 125 MG/2 ML VIAL IV SCH ×3 (06:04→16:37)
[2018-12-19] MEDS: LEVOTHYROXINE 50 MCG TAB PO SCH (06:04)
[2018-12-19 07:13] LABS: Glucose,Whole Blood 126 mg/dL (75-99)
[2018-12-19] MEDS: INSULIN ASPART (NovoLOG) 100 UNIT/ML VIAL SQ SCH ×4 (07:47→21:43)
[2018-12-19] MEDS: METOPROLOL TARTRATE 25 MG TAB PO SCH ×2 (07:47→21:43)
[2018-12-19] MEDS: MAGNESIUM OXIDE 400 MG TAB PO SCH (07:47)
[2018-12-19] MEDS: FUROSEMIDE 40 MG TAB PO SCH ×2 (07:47→16:34)
[2018-12-19] MEDS: guaiFENesin 600 MG TABLET.ER PO SCH ×2 (07:47→21:42)
[2018-12-19] MEDS: ALPRAZolam 0.5 MG TAB PO SCH ×2 (07:47→16:34)
[2018-12-19] MEDS: FAMOTIDINE 20 MG TAB PO SCH ×2 (07:47→21:42)
[2018-12-19 08:43] LABS: Basophils % (A) 0 %; Eosinophils % (A) 0 %; HGB 13.1 gm/dL (11.4-16.0); Lymphocytes # (A) 1.5 k/uL (1.0-4.8); Lymphocytes % (A) 12 %; MCHC 31.9 g/dL (31.0-37.0); Mean Platelet Volume 7.5; Monocytes # (A) 0.4 k/uL (0-1.0); Monocytes % (A) 3 %; Neutrophils # (A) 9.9 k/uL (1.3-7.7); Neutrophils % (A) 84 %; Platelet Count 214 k/uL (150-450); RBC 4.36 m/uL (3.80-5.40); RDW 13.1 % (11.5-15.5); WBC 11.8 k/uL (3.8-10.6)
[2018-12-19 08:47] LABS: Prothrombin Time 19.5 sec (9.0-12.0)
[2018-12-19 09:15] LABS: Albumin 3.4 g/dL (3.5-5.0); Calcium 8.5 mg/dL (8.4-10.2); Magnesium 2.4 mg/dL (1.6-2.3); Phosphorus 3.6 mg/dL (2.5-4.5); Potassium 3.5 mmol/L (3.5-5.1); Total Bilirubin 0.7 mg/dL (0.2-1.3); Total Protein 6.1 g/dL (6.3-8.2)
[2018-12-19] MEDS: BUDESONIDE 0.5 MG/2 ML NEBU INHALATION SCH ×2 (09:15→21:12)
[2018-12-19] MEDS: FORMOTEROL FUMARATE 20 MCG/2 ML NEBU INHALATION SCH ×2 (09:15→21:12)
[2018-12-19] MEDS: AZITHROMYCIN 500 MG in SODIUM CHLORIDE 0.9% 250 ML IVPB SCH (11:35)
--- NOTE | 2018-12-19 11:39 | P.PN ---
Subjective Progress Note Date: 12/19/18 The patient appears more comfortable today and not as in distress as previously noted on exam. She reports cough, wheezes are marginally improved, continues to be on supplemental oxygen 3-4 L. Chest x-ray yesterday showing bibasilar subsegmental atelectasis. Patient afebrile leukocytosis down to 11.8. Objective - Vital Signs Vital signs: Vital Signs Temp 97.0 F L 12/19/18 06:59 Pulse 80 12/19/18 09:38 Resp 18 12/19/18 06:59 BP 150/81 12/19/18 06:59 Pulse Ox 97 12/19/18 09:18 Intake & Output 12/18/18 12/19/18 12/19/18 18:59 06:59 18:59 Intake Total 450 400 Output Total 300 Balance 150 400 Weight 123.065 kg Intake: IV 250 Sodium Chloride 0.9% 1, 150 000 ml @ 50 mls/hr IV . Q20H [facility] Rx#:[id number] cefTRIAXone 1 gm In 100 Sodium Chloride 0.9% 50 ml @ 100 mls/hr IVPB Q24HR [facility] Rx#:[id number] Oral 200 400 Output: Urine 300 Other: Voiding Method Toilet Toilet Toilet # Voids 1 1 # Bowel Movements 0 - Exam Constitutional: Mild distress, conversant, pleasant Eyes: Anicteric sclerae, moist conjunctiva, no lid-lag, PERRLA ENMT: NC/AT,Oropharynx clear, no erythema, exudates Neck:Supple, FROM, no masses, or JVD, No carotid bruits; No thyromegaly Lungs: Diminished in the bases, with biphasic wheezes and poor aeration with seal bark cough on 4 L nasal cannula Cardiovascular: Heart regular in rate and rhythm, No murmurs, gallops, or rubs no peripheral edema Abdominal: Soft Nontender, nom distended, no guarding, no rebound or rigidity, Normoactive bowel sounds No hepatomegaly, No splenomegaly, No palpable mass No abdominal wall hernia noted Skin: Normal temperature, tone, texture, turgor, No induration No subcutaneous nodules, No rash, lesions, No ulcers Extremities:No digital cyanosis No clubbing, Pedal pulses intact and symmetrical Radial pulses intact and symmetrical Normal gait and station, No calf tenderness Psychiatric: Alert and oriented to person, place and time, Appropriate affect Intact judgement Neuro: Muscles Strength 5/5 in all 4 extremities, Sensation to light touch grossly present throughout, Cranial nerves II-XII grossly intact. No focal sensory deficits - Labs CBC & Chem 7: 12/19/18 08:21 12/19/18 08:21 Labs: Abnormal Lab Results - Last 24 Hours (Table) 12/18/18 12/18/18 12/18/18 Range/Units 12:25 17:16 20:22 WBC (3.8-10.6) k/uL Neutrophils # (1.3-7.7) k/uL PT (9.0-12.0) sec INR (<1.2) Carbon Dioxide (22-30) mmol/L BUN (7-17) mg/dL Glucose (74-99) mg/dL POC Glucose (mg/dL) 100 H 139 H 148 H (75-99) mg/dL Magnesium (1.6-2.3) mg/dL Total Protein (6.3-8.2) g/dL Albumin (3.5-5.0) g/dL 12/19/18 12/19/18 12/19/18 Range/Units 07:02 08:21 08:21 WBC 11.8 H (3.8-10.6) k/uL Neutrophils # 9.9 H (1.3-7.7) k/uL PT (9.0-12.0) sec INR (<1.2) Carbon Dioxide 32 H (22-30) mmol/L BUN 32 H (7-17) mg/dL Glucose 154 H (74-99) mg/dL POC Glucose (mg/dL) 126 H (75-99) mg/dL Magnesium 2.4 H (1.6-2.3) mg/dL Total Protein 6.1 L (6.3-8.2) g/dL Albumin 3.4 L (3.5-5.0) g/dL 12/19/18 Range/Units 08:21 WBC (3.8-10.6) k/uL Neutrophils # (1.3-7.7) k/uL PT 19.5 H (9.0-12.0) sec INR 2.0 H (<1.2) Carbon Dioxide (22-30) mmol/L BUN (7-17) mg/dL Glucose (74-99) mg/dL POC Glucose (mg/dL) (75-99) mg/dL Magnesium (1.6-2.3) mg/dL Total Protein (6.3-8.2) g/dL Albumin (3.5-5.0) g/dL Microbiology - Last 24 Hours (Table) 12/18/18 08:10 Gram Stain - Preliminary Sputum Sputum Culture - Preliminary 12/15/18 13:37 Blood Culture - Preliminary Blood No Growth after 72 hours Assessment and Plan (1) Acute respiratory failure with hypoxia Narrative/Plan: * Secondary to acute asthma exacerbation superimposed on underlying community- acquired pneumonia * Continue supplemental oxygen at 4 L nasal cannula with plans for BiPAP at night and patient with underlying tracheomalacia , asthma and obstructive sleep apnea * Chest x-ray this morning showing subsegmental atelectasis of the left lung base Current Visit: Yes Status: Acute Code(s): J96.01 - ACUTE RESPIRATORY FAILURE WITH HYPOXIA SNOMED Code(s): 37039914 (2) Acute severe exacerbation of severe persistent asthma Narrative/Plan: * Triggered by likely pneumonia * Continue systemic steroids with Solu-Medrol, continue Perforomist and Pulmicort, Mucinex along with scheduled and when necessary DuoNeb breathing treatments * Pulmonary following appreciate recommendations Status: Acute Code(s): J45.51 - SEVERE PERSISTENT ASTHMA WITH (ACUTE) EXACERBATION SNOMED Code(s): 928235384 (3) Community acquired pneumonia Narrative/Plan: * Afebrile leukocytosis of 11.8 * Continue IV Rocephin and azithromycin Current Visit: Yes Status: Acute Code(s): J18.9 - PNEUMONIA, UNSPECIFIED ORGANISM SNOMED Code(s): 682204823 (4) Essential hypertension Narrative/Plan: * Blood pressure stable controlled * Continue metoprolol and Lasix Current Visit: Yes Status: Acute Code(s): I10 - ESSENTIAL (PRIMARY) HYPERTENSION SNOMED Code(s): 59385702 (5) Tracheomalacia Current Visit: No Status: Acute Code(s): J39.8 - OTHER SPECIFIED DISEASES OF UPPER RESPIRATORY TRACT SNOMED Code(s): 61669628 Plan: * Anticipated discharge 1-2 days * Continue with current treatment plan
[2018-12-19 11:50] LABS: Glucose,Whole Blood 105 mg/dL (75-99)
--- NOTE | 2018-12-19 12:19 | P.PN ---
Subjective Progress Note Date: 12/19/18 Principal diagnosis: Acute exacerbation of chronic persistent severe bronchial asthma 58-year-old female patient with known history of bronchial asthma, CVA check of bronchomalacia, history of paradoxic vocal cord dysfunction, who presented to the [facility] and yesterday because of increased shortness of breath, active bronchospasm wheezing. The patient was having frequent coughing episodes. On few occasions, she experienced paradoxical vocal cord dysfunction she was having some respiratory stridor's also. The patient was placed on a BiPAP at a patient got minute to the hospital. Chest exit showed a early right lower lobe pulmonary infiltrate that was suggestive an underlying pneumonia. The patient was having increased productive cough with copious amount of purulent material in addition to nasal congestion and rhinorrhea on outpatient basis. I have the patient a combination of Symbicort and Spiriva in addition to albuterol nebulized treatment when necessary. She also has a CPAP machine at home for obstructive sleep apnea. No angina. No palpitation. I came and saw this patient and father quite bronchospastic and wheezy. At times she was having pamela e respiratory stridor especially when she induces paradoxic vocal cords activity. She had received benzodiazepines and I also ordered some Ativan and Xanax on a when necessary basis. Note that this will be quite extensive for the floor nurses to take the patient got transferred to the intensive care unit. No altered mentation. INR is at 1.4 and the patient on long-term and coagulation regarding previous history of pulmonary embolism. No angina. No major swelling lower extremities. No fever or chills. She will be started on antibiotics and systemic steroids. No syncope. No altered mentation. Patient was reevaluated today on 12/17/2018, seems to be doing better, she was on BiPAP overnight, today she is on nasal cannula, seems to be very comfortable, and in no distress. Patient continues to have intermittent episodes of cough and wheezing. Remains on updrafts, and bronchodilators. This morning she is off BiPAP. All labs were reviewed, her medications were reviewed. Patient was reevaluated today on 12/18/2018, continues to steadily improve, but not to the point of being discharged home. Patient has less cough and less wheezing less shortness of breath, tolerating nasal cannula quite well this morning. She continues to have intermittent episodes of cough and wheezing. A nd noted to be more so when she is anxious. Labs were reviewed she had a relatively normal CBC and the relatively normal electrolytes. Chest x-ray was also reviewed, continues to have some subsegmental atelectasis improved compared to the previous chest x-ray especially at the left base. The patient is seen today 12/19/2018 in follow-up on the regular medical floor. She is awake and alert in no acute distress. She states she is breathing easier today as compared to yesterday. No worsening shortness of breath, cough or congestion. Still somewhat bronchospastic and wheezy but moving better air. Maintaining O2 saturations in the upper 90s on 4 L/m per nasal cannula. She's been afebrile. Hemodynamically stable. She did utilize the BiPAP last evening. She wears CPAP at home. Blood and sputum cultures reveal no growth to date. White count 11.8. Hemoglobin 13.1. INR 2.0. Creatinine 0.94. She remains on Singulair, DuoNeb inhalations, Pulmicort and Perforomist inhalations, IV Solu- Medrol, antibiotics in the form of ceftriaxone and azithromycin. Anticoagulated with warfarin. Objective - Vital Signs Vital signs: Vital Signs Temp 97.0 F L 12/19/18 06:59 Pulse 80 12/19/18 09:38 Resp 18 12/19/18 06:59 BP 150/81 12/19/18 06:59 Pulse Ox 97 12/19/18 09:18 Intake & Output 12/18/18 12/19/18 12/19/18 18:59 06:59 18:59 Intake Total 450 400 Output Total 300 Balance 150 400 Weight 123.065 kg Intake: IV 250 Sodium Chloride 0.9% 1, 150 000 ml @ 50 mls/hr IV . Q20H [facility] Rx#:[id number] cefTRIAXone 1 gm In 100 Sodium Chloride 0.9% 50 ml @ 100 mls/hr IVPB Q24HR [facility] Rx#:[id number] Oral 200 400 Output: Urine 300 Other: Voiding Method Toilet Toilet Toilet # Voids 1 1 # Bowel Movements 0 - Exam GENERAL EXAM: Alert, active, comfortable in no apparent distress. On 4 L nasal cannula HEAD: Normocephalic. EYES: Normal reaction of pupils, equal size. NOSE: Clear with pink turbinates. THROAT: Crowding of the posterior pharynx. No erythema or exudates. NECK: Short. No masses, no JVD. CHEST: No chest wall deformity. LUNGS: Equal air entry with faint crackles in the posterior bases, diminished, end expiratory wheeze. CVS: S1 and S2 normal with no audible murmur, regular rhythm. ABDOMEN: No hepatosplenomegaly, normal bowel sounds, no guarding or rigidity. SPINE: No scoliosis or deformity SKIN: No rashes CENTRAL NERVOUS SYSTEM: No focal deficits, tone is normal in all 4 extremities. EXTREMITIES: There is 1+ peripheral edema. No clubbing, no cyanosis. Peripheral pulses are intact. - Labs CBC & Chem 7: 12/19/18 08:21 12/19/18 08:21 Labs: Abnormal Lab Results - Last 24 Hours (Table) 12/18/18 12/18/18 12/18/18 Range/Units 12:25 17:16 20:22 WBC (3.8-10.6) k/uL Neutrophils # (1.3-7.7) k/uL PT (9.0-12.0) sec INR (<1.2) Carbon Dioxide (22-30) mmol/L BUN (7-17) mg/dL Glucose (74-99) mg/dL POC Glucose (mg/dL) 100 H 139 H 148 H (75-99) mg/dL Magnesium (1.6-2.3) mg/dL Total Protein (6.3-8.2) g/dL Albumin (3.5-5.0) g/dL 12/19/18 12/19/18 12/19/18 Range/Units 07:02 08:21 08:21 WBC 11.8 H (3.8-10.6) k/uL Neutrophils # 9.9 H (1.3-7.7) k/uL PT (9.0-12.0) sec INR (<1.2) Carbon Dioxide 32 H (22-30) mmol/L BUN 32 H (7-17) mg/dL Glucose 154 H (74-99) mg/dL POC Glucose (mg/dL) 126 H (75-99) mg/dL Magnesium 2.4 H (1.6-2.3) mg/dL Total Protein 6.1 L (6.3-8.2) g/dL Albumin 3.4 L (3.5-5.0) g/dL 12/19/18 12/19/18 Range/Units 08:21 11:44 WBC (3.8-10.6) k/uL Neutrophils # (1.3-7.7) k/uL PT 19.5 H (9.0-12.0) sec INR 2.0 H (<1.2) Carbon Dioxide (22-30) mmol/L BUN (7-17) mg/dL Glucose (74-99) mg/dL POC Glucose (mg/dL) 105 H (75-99) mg/dL Magnesium (1.6-2.3) mg/dL Total Protein (6.3-8.2) g/dL Albumin (3.5-5.0) g/dL Microbiology - Last 24 Hours (Table) 12/18/18 08:10 Gram Stain - Preliminary Sputum Sputum Culture - Preliminary 12/15/18 13:37 Blood Culture - Preliminary Blood No Growth after 72 hours Assessment and Plan Assessment: Impression: 1 acute exacerbation of severe persistent chronic bronchial asthma 2 severe tracheobronchomalacia and recurrent episodes of exacerbation. 3 history of vocal cord dysfunction. 4 history of pulmonary embolism maintained on anticoagulation therapy 5 acute right lower lobe pneumonia/community-acquired 6 obstructive sleep apnea on CPAP at home 7 generalized anxiety disorder 8 GERD without esophagitis and 9 hypothyroidism 10 benign essential hypertension 11 chronic systolic dysfunction, ejection fraction of 40-45%. Recommendation: The patient was seen and evaluated by Dr. Rodriguez. She is currently stable from the pulmonary standpoint. Not quite back to her baseline. Continue with her current treatment plan. Plan for probable discharge in the a.m. Increase her activity as tolerated. We'll continue to follow. I, the cosigning physician, performed a history & physical examination of the patient. Lungs sounds with faint crackles in the posterior bases, end expiratory wheeze, diminished. Maintaining good O2 saturations in the 90s on 4 L/m per nasal cannula. I discussed the assessment and plan of care with my nurse practitioner, Radha Ruiz. I attest to the above note as dictated by her.
[2018-12-19] MEDS: MORPHINE SULFATE 2 MG/ML SYRINGE IV PRN (13:39)
[2018-12-19 17:22] LABS: Glucose,Whole Blood 132 mg/dL (75-99)
[2018-12-19 20:52] LABS: Glucose,Whole Blood 180 mg/dL (75-99)
[2018-12-19] MEDS: MONTELUKAST 10 MG TAB PO SCH (21:42)
[2018-12-19] MEDS: SODIUM CHLORIDE 0.9% 1,000 ML IV SCH (21:42)
[2018-12-20] MEDS: MORPHINE SULFATE 2 MG/ML SYRINGE IV PRN (00:01)
[2018-12-20] MEDS: ALPRAZolam 0.5 MG TAB PO SCH ×2 (00:03→09:31)
[2018-12-20] MEDS ORDERED: IPRATROPIUM-ALBUTEROL 3 ML NEB ONE (04:00)
[2018-12-20] MEDS: methylPREDNISolone SOD SUCCI 125 MG/2 ML VIAL IV SCH ×3 (06:19→12:30)
[2018-12-20] MEDS: LEVOTHYROXINE 50 MCG TAB PO SCH (06:20)
[2018-12-20 06:49] VITALS: BP 160/83; TEMP 98.2
[2018-12-20] MEDS: IPRATROPIUM-ALBUTEROL 3 ML NEB INHALATION SCH ×3 (07:10→12:30)
[2018-12-20] MEDS: BUDESONIDE 0.5 MG/2 ML NEBU INHALATION SCH (07:10)
[2018-12-20] MEDS: FORMOTEROL FUMARATE 20 MCG/2 ML NEBU INHALATION SCH (07:10)
[2018-12-20 07:31] LABS: Glucose,Whole Blood 113 mg/dL (75-99)
[2018-12-20 08:03] LABS: INR 2.1 (<1.2); Prothrombin Time 20.7 sec (9.0-12.0)
[2018-12-20] MEDS: MAGNESIUM OXIDE 400 MG TAB PO SCH (09:30)
[2018-12-20] MEDS: guaiFENesin 600 MG TABLET.ER PO SCH (09:31)
[2018-12-20] MEDS: METOPROLOL TARTRATE 25 MG TAB PO SCH (09:31)
[2018-12-20] MEDS: FUROSEMIDE 40 MG TAB PO SCH (09:31)
[2018-12-20] MEDS: FAMOTIDINE 20 MG TAB PO SCH (09:31)
[2018-12-20] MEDS: INSULIN ASPART (NovoLOG) 100 UNIT/ML VIAL SQ SCH ×2 (09:31→12:30)
[2018-12-20 09:58] VITALS: RESP 16
[2018-12-20 11:14] VITALS: PULSE 84
[2018-12-20 12:22] LABS: Glucose,Whole Blood 137 mg/dL (75-99)
[2018-12-20] MEDS: AZITHROMYCIN 500 MG in SODIUM CHLORIDE 0.9% 250 ML IVPB SCH (12:30)
--- NOTE | 2018-12-20 12:30 | P.DS ---
Providers Date of admission: 12/15/18 15:20 Expected date of discharge: 12/20/18 Attending physician: Choco Jimenez MD Consults: 12/15/18 15:52 Consult Physician Stat Consulting Provider: Nadeen Feng Consult Reason/Comments: Respiratory distress, Tracheobronchitis Do you want consulting provider notified?: Yes Primary care physician: Russell Hinson - Discharge Diagnosis(es) (1) Acute respiratory failure with hypoxia Current Visit: Yes Status: Acute (2) Acute severe exacerbation of severe persistent asthma Status: Acute (3) Community acquired pneumonia Current Visit: Yes Status: Acute (4) Essential hypertension Current Visit: Yes Status: Acute (5) Tracheomalacia Current Visit: No Status: Acute Hospital Course: The patient is a 58-year-old morbidly obese female with a past medical history of bronchial asthma , bronchomalacia, paradoxic vocal cord dysfunction that was admitted for acute respiratory failure with hypoxia secondary acute exacerbation of her severe persistent bronchial asthma, chest x-ray was suggestive of an early right lower lobe infiltrate Suggestive of pneumonia. She was started on systemic steroids with IV Solu-Medrol and empiric IV antibiotics with Rocephin and azithromycin, along with Perforomist and Symbicort, Singulair and scheduled bronchodilator DuoNeb breathing treatments. Patient has a history of obstructive sleep apnea and was compliant with BiPAP at night,, the patient continued to have respiratory stridor when she induces paradoxic vocal cord activity, she was also treated with benzodiazepine Ativan Xanax when necessary. The patient was maintained on her home hypertensive regimen and her blood pressure was stable, she was also continued on anticoagulation therapy with Coumadin at a therapeutic INR given her history of PE. Both treatment the patient's condition improved she continued to have coarse sounding lungs clear but her recent set essentially resolved by the time of discharge. She was then discharged home in stable condition and instructed to follow-up with pulmonary (see follow-up appointment). This discharge process took approximately 35 minutes Prescriptions prednisone taper and azithromycin Focused exam Respiratory : Coarse sounding breath sounds diminished in bases , no wheezes , respirations unlabored no distress Patient Condition at Discharge: Stable Plan - Discharge Summary New Discharge Prescriptions: New Azithromycin 250 mg PO DAILY 2 Days #2 tab Continue EPINEPHrine (Auto Inject) [Epipen] 0.3 mg IM ONCE PRN PRN Reason: Anaphylaxis Ascorbic Acid [Vitamin C] 500 mg PO DAILY Albuterol Sulfate [Proair Hfa] 1 - 2 puff INHALATION RT-Q4H PRN PRN Reason: Shortness Of Breath Famotidine [Pepcid] 20 mg PO BID Zinc 50 mg PO DAILY Nystatin [Nystop] 1 applic TOPICAL Q12H PRN PRN Reason: Rash Calcium Carbonate/Vitamin D3 [Calcium 600-Vit D3 400 Tablet] 1 tab PO DAILY Magnesium Oxide [Mag-Ox] 250 mg PO DAILY Potassium Chloride [Klor-Con 20] 20 meq PO DAILY Furosemide [Lasix] 40 mg PO BID@0700,1500 ALPRAZolam [Xanax] 0.5 mg PO Q8H #90 tablet Warfarin [Coumadin] 5 mg PO Q48H Mometasone/Formoterol [Dulera 200 Mcg/5 Mcg Inhaler] 2 puff INHALATION RT-BID Montelukast [Singulair] 10 mg PO HS Cetirizine HCl [Zyrtec] 10 mg PO DAILY Levothyroxine Sodium [Synthroid] 50 mcg PO DAILY Nystatin 100,000 Unit/ml Susp [Mycostatin Oral Susp] 5 ml PO QID PRN PRN Reason: THRUSH Metoprolol Tartrate [Lopressor] 75 mg PO BID Cholecalciferol [Vitamin D3] 5,000 unit PO DAILY L.acidoph,Paracasei, B.lactis [Probiotic] 1 cap PO DAILY Diphenox-Atrop 2.5-0.025 mg [Lomotil] 1 tab PO QID PRN PRN Reason: Diarrhea Dicyclomine [Bentyl] 20 mg PO TID PRN PRN Reason: IBS Ipratropium-Albuterol Nebulize [Duoneb 0.5 mg-3 mg/3 ml Soln] 3 ml INHALATION RT-QID PRN PRN Reason: Shortness Of Breath Discharge Medication List Albuterol Sulfate [Proair Hfa] 1 - 2 puff INHALATION RT-Q4H PRN 04/11/14 [History] Ascorbic Acid [Vitamin C] 500 mg PO DAILY 04/11/14 [History] EPINEPHrine (Auto Inject) [Epipen] 0.3 mg IM ONCE PRN 04/11/14 [History] Famotidine [Pepcid] 20 mg PO BID 04/11/14 [History] Zinc 50 mg PO DAILY 04/11/14 [History] Calcium Carbonate/Vitamin D3 [Calcium 600-Vit D3 400 Tablet] 1 tab PO DAILY 12/08/14 [History] Nystatin [Nystop] 1 applic TOPICAL Q12H PRN 12/08/14 [History] Magnesium Oxide [Mag-Ox] 250 mg PO DAILY 12/18/14 [History] Furosemide [Lasix] 40 mg PO BID@0700,1500 04/22/15 [History] Potassium Chloride [Klor-Con 20] 20 meq PO DAILY 04/22/15 [History] ALPRAZolam [Xanax] 0.5 mg PO Q8H #90 tablet 05/11/15 [Rx] Mometasone/Formoterol [Dulera 200 Mcg/5 Mcg Inhaler] 2 puff INHALATION RT-BID 09/12/15 [History] Warfarin [Coumadin] 5 mg PO Q48H 09/12/15 [History] Cetirizine HCl [Zyrtec] 10 mg PO DAILY 12/21/15 [History] Montelukast [Singulair] 10 mg PO HS 12/21/15 [History] Levothyroxine Sodium [Synthroid] 50 mcg PO DAILY 03/03/16 [History] Metoprolol Tartrate [Lopressor] 75 mg PO BID 01/09/17 [History] Nystatin 100,000 Unit/ml Susp [Mycostatin Oral Susp] 5 ml PO QID PRN 01/09/17 [History] Cholecalciferol [Vitamin D3] 5,000 unit PO DAILY 09/10/17 [History] L.acidoph,Paracasei, B.lactis [Probiotic] 1 cap PO DAILY 09/10/17 [History] Dicyclomine [Bentyl] 20 mg PO TID PRN 12/15/18 [History] Diphenox-Atrop 2.5-0.025 mg [Lomotil] 1 tab PO QID PRN 12/15/18 [History] Ipratropium-Albuterol Nebulize [Duoneb 0.5 mg-3 mg/3 ml Soln] 3 ml INHALATION RT-QID PRN 12/15/18 [History] Azithromycin 250 mg PO DAILY 2 Days #2 tab 12/20/18 [Rx] Follow up Appointment(s)/Referral(s): Nonstaff,Physician [REFERRING] - 1-2 days Nadeen Feng MD [STAFF PHYSICIAN] - 12/25/18 3:30 pm (Radha Ruiz) Patient Instructions/Handouts: Heart Failure (DC), Asthma (DC), Acute Bronchitis (GEN)
--- NOTE | 2018-12-20 12:51 | P.PN ---
Subjective Progress Note Date: 12/20/18 Principal diagnosis: Acute exacerbation of chronic persistent severe bronchial asthma 58-year-old female patient with known history of bronchial asthma, CVA check of bronchomalacia, history of paradoxic vocal cord dysfunction, who presented to the [facility] and yesterday because of increased shortness of breath, active bronchospasm wheezing. The patient was having frequent coughing episodes. On few occasions, she experienced paradoxical vocal cord dysfunction she was having some respiratory stridor's also. The patient was placed on a BiPAP at a patient got minute to the hospital. Chest exit showed a early right lower lobe pulmonary infiltrate that was suggestive an underlying pneumonia. The patient was having increased productive cough with copious amount of purulent material in addition to nasal congestion and rhinorrhea on outpatient basis. I have the patient a combination of Symbicort and Spiriva in addition to albuterol nebulized treatment when necessary. She also has a CPAP machine at home for obstructive sleep apnea. No angina. No palpitation. I came and saw this patient and father quite bronchospastic and wheezy. At times she was having pamela e respiratory stridor especially when she induces paradoxic vocal cords activity. She had received benzodiazepines and I also ordered some Ativan and Xanax on a when necessary basis. Note that this will be quite extensive for the floor nurses to take the patient got transferred to the intensive care unit. No altered mentation. INR is at 1.4 and the patient on long-term and coagulation regarding previous history of pulmonary embolism. No angina. No major swelling lower extremities. No fever or chills. She will be started on antibiotics and systemic steroids. No syncope. No altered mentation. Patient was reevaluated today on 12/17/2018, seems to be doing better, she was on BiPAP overnight, today she is on nasal cannula, seems to be very comfortable, and in no distress. Patient continues to have intermittent episodes of cough and wheezing. Remains on updrafts, and bronchodilators. This morning she is off BiPAP. All labs were reviewed, her medications were reviewed. Patient was reevaluated today on 12/18/2018, continues to steadily improve, but not to the point of being discharged home. Patient has less cough and less wheezing less shortness of breath, tolerating nasal cannula quite well this morning. She continues to have intermittent episodes of cough and wheezing. A nd noted to be more so when she is anxious. Labs were reviewed she had a relatively normal CBC and the relatively normal electrolytes. Chest x-ray was also reviewed, continues to have some subsegmental atelectasis improved compared to the previous chest x-ray especially at the left base. The patient is seen today 12/19/2018 in follow-up on the regular medical floor. She is awake and alert in no acute distress. She states she is breathing easier today as compared to yesterday. No worsening shortness of breath, cough or congestion. Still somewhat bronchospastic and wheezy but moving better air. Maintaining O2 saturations in the upper 90s on 4 L/m per nasal cannula. She's been afebrile. Hemodynamically stable. She did utilize the BiPAP last evening. She wears CPAP at home. Blood and sputum cultures reveal no growth to date. White count 11.8. Hemoglobin 13.1. INR 2.0. Creatinine 0.94. She remains on Singulair, DuoNeb inhalations, Pulmicort and Perforomist inhalations, IV Solu- Medrol, antibiotics in the form of ceftriaxone and azithromycin. Anticoagulated with warfarin. The patient is seen today 12/20/2018 in follow-up on the regular medical floor. She is currently sitting up at the bedside. Awake and alert in no acute distress. Improved today as compared to yesterday. Continues to utilize the BiPAP at night. Currently on 4 L/m per nasal cannula. O2 saturations in the high 90s. She's afebrile. Blood and sputum cultures reveal no growth. INR 2.1. Objective - Vital Signs Vital signs: Vital Signs Temp 98.2 F 12/20/18 06:48 Pulse 84 12/20/18 11:13 Resp 16 12/20/18 08:00 BP 160/83 12/20/18 06:48 Pulse Ox 96 12/20/18 07:14 Intake & Output 12/19/18 12/20/18 12/20/18 18:59 06:59 18:59 Intake Total 720 800 Balance 720 800 Weight 124.738 kg Intake: IV 800 Sodium Chloride 0.9% 1, 800 000 ml @ 50 mls/hr IV . Q20H JAYNE Rx#:[id number] Oral 720 Other: Voiding Method Toilet Toilet # Voids 3 1 - Exam GENERAL EXAM: Alert, active, comfortable in no apparent distress. On 4 L nasal cannula HEAD: Normocephalic. EYES: Normal reaction of pupils, equal size. NOSE: Clear with pink turbinates. THROAT: Crowding of the posterior pharynx. No erythema or exudates. NECK: Short. No masses, no JVD. CHEST: No chest wall deformity. LUNGS: Equal air entry diminished, end expiratory wheeze. CVS: S1 and S2 normal with no audible murmur, regular rhythm. ABDOMEN: No hepatosplenomegaly, normal bowel sounds, no guarding or rigidity. SPINE: No scoliosis or deformity SKIN: No rashes CENTRAL NERVOUS SYSTEM: No focal deficits, tone is normal in all 4 extremities. EXTREMITIES: There is 1+ peripheral edema. No clubbing, no cyanosis. Peripheral pulses are intact. - Labs CBC & Chem 7: 12/19/18 08:21 12/19/18 08:21 Labs: Abnormal Lab Results - Last 24 Hours (Table) 12/19/18 12/19/18 12/20/18 Range/Units 17:10 20:45 07:24 PT (9.0-12.0) sec INR (<1.2) POC Glucose (mg/dL) 132 H 180 H 113 H (75-99) mg/dL 12/20/18 12/20/18 Range/Units 07:25 12:03 PT 20.7 H (9.0-12.0) sec INR 2.1 H (<1.2) POC Glucose (mg/dL) 137 H (75-99) mg/dL Microbiology - Last 24 Hours (Table) 12/15/18 13:37 Blood Culture - Preliminary Blood No Growth after 96 hours 12/18/18 08:10 Gram Stain - Preliminary Sputum Sputum Culture - Preliminary Assessment and Plan Assessment: Impression: 1 acute exacerbation of severe persistent chronic bronchial asthma 2 severe tracheobronchomalacia and recurrent episodes of exacerbation. 3 history of vocal cord dysfunction. 4 history of pulmonary embolism maintained on anticoagulation therapy 5 acute right lower lobe pneumonia/community-acquired 6 obstructive sleep apnea on CPAP at home 7 generalized anxiety disorder 8 GERD without esophagitis and 9 hypothyroidism 10 benign essential hypertension 11 chronic systolic dysfunction, ejection fraction of 40-45%. Recommendation: The patient was seen and evaluated by Dr. Rodriguez. She is currently stable from the pulmonary standpoint. Cleared for discharge. She'll complete a prednisone taper. Complete her course of antibiotics. Continue her home pulmonary medications. Follow closely in our office in 1 week. She is however encouraged to call sooner with any recurrence of symptoms or other questions or concerns. I, the cosigning physician, performed a history & physical examination of the patient. Lungs sounds with faint end expiratory wheeze, diminished. Maintaining good O2 saturations in the 90s on 4 L/m per nasal cannula. I discussed the assessment and plan of care with my nurse practitioner, Radha Ruiz. I attest to the above note as dictated by her.
[2018-12-20 13:46] VITALS: BMI 43.0
== END 2018-12-20 13:58 | disposition home or self-care (01) | DRG 202 ==
LOC: EC 13:18 → 3SCARD 15:20 → 2SICU 12-16 11:36 → 4MS4W 12-18 11:14
PROVIDERS: ADMIT Family Medicine; ATTEND Family Medicine
PROC: 5A09457 Assistance with Respiratory Ventilation, 24-96 Consecutive Hours, Continuous Positive Airway Pressure (ICD-10-PCS; principal; 2018-12-15)
DX: J45.51 Severe persistent asthma with (acute) exacerbation (principal); J18.9 Pneumonia, unspecified organism; J96.21 Acute and chronic respiratory failure with hypoxia; I50.22 Chronic systolic (congestive) heart failure; J44.0 Chronic obstructive pulmonary disease with (acute) lower respiratory infection; J44.1 Chronic obstructive pulmonary disease with (acute) exacerbation; J98.11 Atelectasis; Z68.42 Body mass index [BMI] 45.0-49.9, adult; I11.0 Hypertensive heart disease with heart failure; M41.9 Scoliosis, unspecified; J39.8 Other specified diseases of upper respiratory tract; E66.01 Morbid (severe) obesity due to excess calories; G47.33 Obstructive sleep apnea (adult) (pediatric); E03.9 Hypothyroidism, unspecified; F41.1 Generalized anxiety disorder; K21.9 Gastro-esophageal reflux disease without esophagitis; J38.3 Other diseases of vocal cords; Z79.01 Long term (current) use of anticoagulants; Z79.51 Long term (current) use of inhaled steroids; Z79.890 Hormone replacement therapy; Z79.899 Other long term (current) drug therapy; Z86.73 Personal history of transient ischemic attack (TIA), and cerebral infarction without residual deficits; Z86.718 Personal history of other venous thrombosis and embolism; Z86.711 Personal history of pulmonary embolism; Z90.49 Acquired absence of other specified parts of digestive tract; Z88.1 Allergy status to other antibiotic agents; Z88.2 Allergy status to sulfonamides; Z91.018 Allergy to other foods; Z80.3 Family history of malignant neoplasm of breast; Z82.49 Family history of ischemic heart disease and other diseases of the circulatory system; Z82.3 Family history of stroke; Z82.61 Family history of arthritis; Z84.2 Family history of other diseases of the genitourinary system
CPT/HCPCS: 36415; 71045; 80048; 80053; 82550; 82553; 83735; 83880; 84100; 84484; 85025; 85610; 85730; 87040; 87070; 87205; 87502; 93005; 94640; 94660; 94760; 96365; 96375; 99291

== ENCOUNTER 2019-01-16 11:25 | Day surgery (SDC) | payer OTHER ==
[2019-01-15 09:05] VITALS: BMI 41.8
[~2019-01-16 11:25] MED LIST changes: -LACTATED RINGERS 1,000 ML IV ONE; -LACTATED RINGERS 1,000 ML IV SCH; +LIDOCAINE 2% (PF) 20 MG/ML 10 ML AMP INHALATION ONE; -LIDOCAINE 2% (PF) 20 MG/ML 10ML INHALATION ONE; +LIDOCAINE VISCOUS 300 MG/15 ML CUP MUCOUS MEM ONE; +SODIUM CHLORIDE 0.9% 1,000 ML IV SCH
[2019-01-16 12:03] VITALS: RESP 18; TEMP 97.7
[2019-01-16] MEDS: LACTATED RINGERS 1,000 ML IV SCH ×2 (12:35→12:42)
[2019-01-16] MEDS ORDERED: LIDOCAINE 1% 20 ML VIAL (10MG/ML) FOR IV START INTRADERMA ONE ×2 (12:35→12:43)
[2019-01-16 12:36] LABS: Glucose,Whole Blood 80 mg/dL (75-99)
[2019-01-16] MEDS ORDERED: METOCLOPRAMIDE 5 MG/ML 2 ML VIAL IVP ONE (12:40)
[2019-01-16] MEDS ORDERED: ONDANSETRON 4 MG/2 ML VIAL IVP ONE (12:40)
[2019-01-16] MEDS ORDERED: FAMOTIDINE 20 MG/2 ML VIAL IV ONE (12:40)
[2019-01-16] MEDS ORDERED: LIDOCAINE 1% INJ 10MG/ML (20 ML MDV) ONE (13:00)
[2019-01-16] MEDS ORDERED: MIDAZOLAM 2 MG/2 ML VIAL ONE (13:00)
[2019-01-16] MEDS ORDERED: PROPOFOL 10 MG/ML 20 ML VIAL IV ONE (13:00)
[2019-01-16] MEDS ORDERED: GLYCOPYRROLATE 0.2 MG/ML 2 ML VIAL ONE (13:00)
[2019-01-16] MEDS ORDERED: KETAMINE 10 MG/ML 20 ML VIAL ONE (13:00)
[2019-01-16] MEDS ORDERED: fentaNYL (PF) 50 MCG/ML 2 ML AMP ONE (13:00)
[2019-01-16] MEDS ORDERED: LIDOCAINE 2% INJ 20 MG/ML INTRATRACH ONE (13:16)
--- NOTE | 2019-01-16 13:21 | P.PCN ---
Date of Procedure: 01/16/19 Preoperative Diagnosis: persistent cough and dyspnea Postoperative Diagnosis: severe tracheobronchomalacia Acute tracheal bronchitis Bilateral mucous plugs Procedure(s) Performed: Lexxel bronchoscopy, bronchioalveolar lavage of the right middle lobe Anesthesia: MAC Surgeon: Nadeen Feng Pathology: other Condition: stable Disposition: same day Operative Findings: this procedure was done under conscious sedation with anesthetic agents being administered by anesthesia the bedside. The patient was given a combination of propofol, ketamine, Versed and fentanyl After achieving adequate sedation, the flexible bronchoscope was inserted through the left nostril. The flexible bronchoscope was advanced into the posterior oropharynx and larynx and immediately the epiglottis was identified. The 2 and the false vocal cords were within normal limits. Vocal cord function was within normal limits. Arytenoids were slightly swollen, and the rest of the upper airway structures including the epiglottis and vallecula were within normal limits. A total of 2 mL of 1% lidocaine was applied to the vocal cords and following that the flexible bronchoscope was advanced into the upper trachea. Immediately, it was noted that the patient had severe tracheal bronchomalacia with dynamic obstruction of the tracheal wall with movement of the membranous trachea causing near complete obstruction of the airway with expiration maneuvers and coughing. Respiratory secretions and mucous plugging were identified in the bilateral mainstem bronchi and these were thick purulent secretions that were suctioned out without any major difficulties. The visualized airways including the trachea, bilateral mainstem bronchi, right upper lobe bronchus, bronchus intermedius, right middle lobe bronchus and right lower lobe bronchus. On the left, the visualized airways into the left mainstem bronchus, left upper lobe bronchus and left lower lobe bronchus. Therapeutic airway suctioning was done and the respiratory secretions were all normal. The bronchoscope was then wedged into the right middle lobe and the bron chioloalveolar lavage was done with a total of 60cc of fluid was infused and 30 mL of aspirate was obtained and the microbial cultures will be obtained on the lavage fluid.the patient tolerated the procedure well without any complications. Bronchoscope was removed Patient was sent to recovery in stable condition. No complications. The patient was discharged home to be followed up with me in the office to discuss the results of the bronchioloalveolar lavage and the microbial cultures.
[2019-01-16 13:43] VITALS: BP 115/79; PULSE 98
== END 2019-01-16 14:06 | disposition home or self-care (01) ==
LOC: ORWHC2ENDO 11:25
PROVIDERS: ATTEND Internal Medicine Critical Care Medicine
DX: J39.8 Other specified diseases of upper respiratory tract (principal); Q32.2 Congenital bronchomalacia; J98.09 Other diseases of bronchus, not elsewhere classified; J44.0 Chronic obstructive pulmonary disease with (acute) lower respiratory infection; J20.9 Acute bronchitis, unspecified; J45.50 Severe persistent asthma, uncomplicated; I11.0 Hypertensive heart disease with heart failure; I50.9 Heart failure, unspecified; I25.10 Atherosclerotic heart disease of native coronary artery without angina pectoris; G47.33 Obstructive sleep apnea (adult) (pediatric); Z99.89 Dependence on other enabling machines and devices; K21.9 Gastro-esophageal reflux disease without esophagitis; E03.9 Hypothyroidism, unspecified; F41.1 Generalized anxiety disorder; I48.0 Paroxysmal atrial fibrillation; M19.90 Unspecified osteoarthritis, unspecified site; E66.9 Obesity, unspecified; Z68.41 Body mass index [BMI] 40.0-44.9, adult; Z86.73 Personal history of transient ischemic attack (TIA), and cerebral infarction without residual deficits; Z86.718 Personal history of other venous thrombosis and embolism; Z86.19 Personal history of other infectious and parasitic diseases; Z80.3 Family history of malignant neoplasm of breast; Z80.42 Family history of malignant neoplasm of prostate; Z79.890 Hormone replacement therapy; Z79.51 Long term (current) use of inhaled steroids; Z79.52 Long term (current) use of systemic steroids; Z79.899 Other long term (current) drug therapy; Z88.1 Allergy status to other antibiotic agents; Z88.8 Allergy status to other drugs, medicaments and biological substances
CPT/HCPCS: 94640; 87252; 87070; 87205; 87102; 31624; J2001 ×3; J2250; J2765; J2405; J3010; J2704; 87496; 87498; 87502; 87529; 87634; 87798

== ENCOUNTER → 2019-02-18 | Outpatient (CLI) | payer OTHER ==
--- NOTE | 2019-02-18 14:15 | CT ---
EXAMINATION TYPE: CT chest wo con DATE OF EXAM: 02/18/2019 COMPARISON: CTA chest June 11, 2013 HISTORY: Cough, hoarse voice. CT DLP: 1491 mGycm. Automated Exposure Control for Dose Reduction was Utilized. TECHNIQUE: CT scan of the thorax is performed without IV contrast. High resolution protocol with 1 m m sequences obtained in 10 mm intervals in supine and prone technique FINDINGS: LUNGS: The lungs are grossly clear, there is no suspicious peripheral reticulation or fibrosis. No ho neycombing is evident. No pleural effusions or pneumothorax. No concerning pulmonary masses. No bronc hiectasis. No suspicious focal consolidation. MEDIASTINUM: Lack of IV contrast and technique is noted to limit evaluation for mediastinal and espec ially hilar adenopathy. There are no definitive greater than 1 cm hilar or mediastinal lymph nodes. No cardiomegaly or pericardial effusion is seen. Main pulmonary artery measures 3.0 cm at bifurcatio n image 12, CT finding suggesting underlying pulmonary artery hypertension. OTHER: Liver is diffusely low dense consistent with fatty infiltration. Cholecystectomy clips are not ed IMPRESSION: No suspicious acute or chronic pulmonary parenchymal process.
== END | disposition home or self-care (01) ==
LOC: RADCTMAIN 13:02
PROVIDERS: ATTEND Internal Medicine Critical Care Medicine
DX: J45.50 Severe persistent asthma, uncomplicated (principal)
CPT/HCPCS: 71250

== ENCOUNTER 2019-09-29 08:42 | Inpatient (IN) | payer OTHER ==
[2019-09-29] MEDS ORDERED: IPRATROPIUM-ALBUTEROL 3 ML NEB INHALATION STA (08:59)
[2019-09-29] MEDS ORDERED: RACEPINEPHRINE 2.25% NEB 0.5 ML NEBU INHALATION STA (09:01)
[2019-09-29] MEDS ORDERED: DEXAMETHASONE SOD PHOSPHATE 10 MG/ML 1 ML VIAL IV STA (09:02)
[2019-09-29] MEDS ORDERED: SODIUM CHLORIDE 0.9% 500 ML 500 ML IV STA (09:06)
--- NOTE | 2019-09-29 09:08 | ED ---
General Adult HPI - General Chief complaint: Shortness of Breath Stated complaint: JOSE MANUEL Time Seen by Provider: 09/29/19 08:52 Source: patient Mode of arrival: wheelchair Limitations: no limitations - History of Present Illness Initial comments: Dictation was produced using [employer] dictation software. please excuse any grammatical, word or spelling errors. Chief Complaint: 58-year-old female past medical history of COPD and tracheomalacia presents with dyspnea. History of Present Illness: She is a 58-year-old female she has past medical history of asthma, COPD, tracheomalacia. Presents today with shortness of breath. Patient reports that her family members have been sick with similar presentation. She states that her symptoms will progress this morning. She states her symptoms started yesterday. She presents today with a family member who transported her here to the emergency department. Patient feels as though her symptoms are more consistent with her tracheomalacia as opposed to her COPD or asthma. Denies any fever, chills or night sweats. Patient denies any allergen exposures. The ROS documented in this emergency department record has been reviewed and confirmed by me. Those systems with pertinent positive or negative responses have been documented in the HPI. All other systems are other negative and/or noncontributory. PHYSICAL EXAM: General Impression: Alert and oriented x3, dyspneic, noisy breathing HEENT: Normocephalic atraumatic, extra-ocular movements intact, pupils equal and reactive to light bilaterally, mucous membranes moist, not tripoding, not diaphoretic, not drooling Cardiovascular: Heart regular rate and rhythm, S1&S2 audible, no murmurs, rubs or gallops Chest: Bilateral lung wheezing, is breathing with inspiration and expiration Abdomen: Bowel sounds present, abdomen soft, non-tender, non-distended, no organomegaly Musculoskeletal: Pulses present and equal in all extremities, no peripheral edema Motor: no focal deficits noted Neurological: CN II-XII grossly intact, no focal motor or sensory deficits noted Skin: Intact with no visualized rashes ED course: 58-year-old female presents with dyspnea as chief complaint. She has a history of tracheomalacia and asthma. Vital signs upon arrival shows respiratory of 29, worse vital signs within acceptable limits. Patient is breathing very noisily. Patient treated with racemic epinephrine and Decadron.Chart review was performed. On 01/16/2019 patient had bronchoscopy performed. She is found to have severe tracheobronchomalacia with dynamic obstruction. There is also findings of purulent secretions at that time that was suctioned out. CBC unremarkable, coag panel unremarkable. Metabolic panel is unremarkable 4. Group A strep is negative. Chest x-ray and soft tissue neck x-ray shows early megaly and mild subglottic narrowing without other abnormality. Patient treated with Ativan and racemic epinephrine and DuoNeb. She was reevaluated at bedside and found to be dramatically improved. Patient without focal probing discharge. She will be admitted to observation with consultation to Dr. Feng of pulmonology. Discussed patient case with Dr. Kemp who is willing to accept patients care. EKG interpretation: Ventricular rate 85, sinus rhythm, GA interval 106, QS 88, QTc 445. No GA prolongation, no QTC prolongation, no ST or T-wave changes noted. EKG compared to 12/15/2018 showing no changes. Overall, this EKG is unremarkable - Related Data Home Medications Medication Instructions Recorded Confirmed Albuterol Sulfate [Proair Hfa] 1 - 2 puff INHALATION RT-Q4H PRN 04/11/14 01/16/19 Ascorbic Acid [Vitamin C] 500 mg PO DAILY 04/11/14 01/16/19 EPINEPHrine (Auto Inject) [Epipen] 0.3 mg IM ONCE PRN 04/11/14 01/16/19 Famotidine [Pepcid] 20 mg PO BID 04/11/14 01/16/19 Zinc 50 mg PO DAILY 04/11/14 01/16/19 Calcium Carbonate/Vitamin D3 1 tab PO DAILY 12/08/14 01/16/19 [Calcium 600-Vit D3 400 Tablet] Nystatin [Nystop] 1 applic TOPICAL Q12H PRN 12/08/14 01/16/19 Magnesium Oxide [Mag-Ox] 250 mg PO DAILY 12/18/14 01/16/19 Furosemide [Lasix] 40 mg PO BID@0700,1500 04/22/15 01/16/19 Potassium Chloride [Klor-Con 20] 20 meq PO DAILY 04/22/15 01/16/19 Mometasone/Formoterol [Dulera 200 2 puff INHALATION RT-BID 09/12/15 01/16/19 Mcg/5 Mcg Inhaler] Cetirizine HCl [Zyrtec] 10 mg PO DAILY 12/21/15 01/16/19 Montelukast [Singulair] 10 mg PO HS 12/21/15 01/16/19 Levothyroxine Sodium [Synthroid] 50 mcg PO DAILY 03/03/16 01/16/19 Metoprolol Tartrate [Lopressor] 75 mg PO BID 01/09/17 01/16/19 Nystatin 100,000 Unit/ml Susp 5 ml PO QID PRN 01/09/17 01/16/19 [Mycostatin Oral Susp] Cholecalciferol [Vitamin D3 (25 5,000 unit PO DAILY 09/10/17 01/16/19 Mcg = 1000 Iu)] L.acidoph,Paracasei, B.lactis 1 cap PO DAILY 09/10/17 01/16/19 [Probiotic] Dicyclomine [Bentyl] 20 mg PO TID PRN 12/15/18 01/16/19 Diphenox-Atrop 2.5-0.025 mg 1 tab PO QID PRN 12/15/18 01/16/19 [Lomotil] Ipratropium-Albuterol Nebulize 3 ml INHALATION RT-QID PRN 12/15/18 01/16/19 [Duoneb 0.5 mg-3 mg/3 ml Soln] predniSONE 10 mg PO DAILY 01/15/19 01/16/19 Previous Rx's Medication Instructions Recorded ALPRAZolam [Xanax] 0.5 mg PO Q8H #90 tablet 05/11/15 Allergies Allergy/AdvReac Type Severity Reaction Status Date / Time Aminoglycosides Allergy Unknown Verified 09/29/19 12:16 honey Allergy Anaphylaxis Verified 09/29/19 12:16 moxifloxacin HCl Allergy Unknown Verified 09/29/19 12:16 [From Avelox] peanut Allergy Anaphylaxis Verified 09/29/19 12:16 azithromycin [From Zithromax] AdvReac Nausea & Verified 09/29/19 12:16 Vomiting & Diarrhea clindamycin AdvReac Dyspnea Verified 09/29/19 12:16 corn AdvReac Nausea & Verified 09/29/19 12:16 Vomiting & Diarrhea lactose AdvReac Nausea Verified 09/29/19 12:16 levofloxacin [From Levaquin] AdvReac Dyspnea Verified 09/29/19 12:16 neomycin [Neomycin] AdvReac Dyspnea Verified 09/29/19 12:16 omalizumab [From Xolair] AdvReac Dyspnea Verified 09/29/19 12:16 sulfamethoxazole AdvReac Diarrhea/co Verified 09/29/19 12:16 [From Bactrim] litis trimethoprim [From Bactrim] AdvReac Diarrhea/co Verified 09/29/19 12:16 litis Review of Systems ROS Statement: Those systems with pertinent positive or pertinent negative responses have been documented in the HPI. ROS Other: All systems not noted in ROS Statement are negative. Past Medical History Past Medical History: Asthma, Heart Failure, COPD, CVA/TIA, GERD/Reflux, Hypertension, Sleep Apnea/CPAP/BIPAP, Thyroid Disorder Additional Past Medical History / Comment(s): THRUSH, Uses CPAP. Recurrent bronchitis. Chronic TRACHEOBRONCHOMALCIA. CHF with systolic dysfunction and EF of 40-45%. TACHYCARDIA. SCOLIOSIS. vocal cord dysfunction. Syncopy with TIA.c- diff 04-22-15 colitis, difficulty swallowing large pills and needs meat chopped up History of Any Multi-Drug Resistant Organisms: C-DIFF Date of last positivie culture/infection: 04/22/15 MDRO Source:: stool Past Surgical History: Cholecystectomy, Heart Catheterization, Orthopedic Avila rgery, Tubal Ligation, Uterine Ablation Additional Past Surgical History / Comment(s): HEART CATH. BREAST BIOPSY-NEG. COLON POLYP - NEG. D&C. BILATERAL KNEE. NECK CYST. BOWEL RESECTION. VOCAL CORD. BRONCHOSCOPY 3-6-15 PER PT FOUND HERPES SIMPLES BLISTERS IN LUNGS. HAS H AD 15 BRONCHS.rt arm tendon sx Past Anesthesia/Blood Transfusion Reactions: Postoperative Nausea & Vomiting (PONV) Additional Past Anesthesia/Blood Transfusion Reaction / Comment(s): Pt has never recieved blood. Past Psychological History: Anxiety Smoking Status: Never smoker - Past Family History Father Family Medical History: Cancer, Congestive Heart Failure (CHF), CVA/TIA, Myocardial Infarction ([place]), Prostate Disorder Additional Family Medical History / Comment(s): at age 84- chocked on a hot dog Mother Family Medical History: Cancer, Osteoarthritis (OA) Additional Family Medical History / Comment(s): mom is 84 breast ca surviver. General Exam Limitations: no limitations Course Vital Signs 1209/29/19 09/29/19 08:48 08:50 09:05 Temperature 97.3 F L Pulse Rate 87 89 Respiratory 29 H 28 H Rate Blood Pressure 147/77 O2 Sat by Pulse 97 Oximetry 09/29/19 09/29/19 09/29/19 09:17 09:18 09:28 Temperature Pulse Rate 90 92 90 Respiratory 28 H Rate Blood Pressure 128/103 O2 Sat by Pulse 99 Oximetry 09/29/19 09/29/19 09/29/19 09:31 09:45 10:34 Temperature Pulse Rate 89 82 75 Respiratory 25 H 18 Rate Blood Pressure 118/56 124/74 O2 Sat by Pulse 99 99 Oximetry Medical Decision Making - Lab Data Result diagrams: 09/29/19 09:07 09/29/19 09:07 Lab Results 09/29/19 09/29/19 09/29/19 Range/Units 09:04 09:07 09:07 WBC 7.3 (3.8-10.6) k/uL RBC 4.72 (3.80-5.40) m/uL Hgb 14.4 (11.4-16.0) gm/dL Hct 42.9 (34.0-46.0) % MCV 91.0 (80.0-100.0) fL MCH 30.4 (25.0-35.0) pg MCHC 33.5 (31.0-37.0) g/dL RDW 13.1 (11.5-15.5) % Plt Count 212 (150-450) k/uL Neutrophils % 63 % Lymphocytes % 27 % Monocytes % 6 % Eosinophils % 3 % Basophils % 0 % Neutrophils # 4.6 (1.3-7.7) k/uL Lymphocytes # 1.9 (1.0-4.8) k/uL Monocytes # 0.4 (0-1.0) k/uL Eosinophils # 0.2 (0-0.7) k/uL Basophils # 0.0 (0-0.2) k/uL PT (9.0-12.0) sec INR (<1.2) APTT (22.0-30.0) sec Sodium 143 (137-145) mmol/L Potassium 4.2 (3.5-5.1) mmol/L Chloride 109 H (98-107) mmol/L Carbon Dioxide 25 (22-30) mmol/L Anion Gap 9 mmol/L BUN 19 H (7-17) mg/dL Creatinine 1.08 H (0.52-1.04) mg/dL Est GFR (CKD-EPI)AfAm 66 (>60 ml/min/1.73 sqM) Est GFR (CKD-EPI)NonAf 58 (>60 ml/min/1.73 sqM) Glucose 92 (74-99) mg/dL Calcium 9.6 (8.4-10.2) mg/dL Group A Strep Rapid Negative (Negative) 09/29/19 Range/Units 09:07 WBC (3.8-10.6) k/uL RBC (3.80-5.40) m/uL Hgb (11.4-16.0) gm/dL Hct (34.0-46.0) % MCV (80.0-100.0) fL MCH (25.0-35.0) pg MCHC (31.0-37.0) g/dL RDW (11.5-15.5) % Plt Count (150-450) k/uL Neutrophils % % Lymphocytes % % Monocytes % % Eosinophils % % Basophils % % Neutrophils # (1.3-7.7) k/uL Lymphocytes # (1.0-4.8) k/uL Monocytes # (0-1.0) k/uL Eosinophils # (0-0.7) k/uL Basophils # (0-0.2) k/uL PT 9.8 (9.0-12.0) sec INR 0.9 (<1.2) APTT 24.1 (22.0-30.0) sec Sodium (137-145) mmol/L Potassium (3.5-5.1) mmol/L Chloride (98-107) mmol/L Carbon Dioxide (22-30) mmol/L Anion Gap mmol/L BUN (7-17) mg/dL Creatinine (0.52-1.04) mg/dL Est GFR (CKD-EPI)AfAm (>60 ml/min/1.73 sqM) Est GFR (CKD-EPI)NonAf (>60 ml/min/1.73 sqM) Glucose (74-99) mg/dL Calcium (8.4-10.2) mg/dL Group A Strep Rapid (Negative) Disposition Clinical Impression: Tracheomalacia Disposition: ADMITTED IP TO THIS HOSP Condition: Fair Referrals: Russell Hinson MD [Primary Care Provider] - 1-2 days Decision Time: 12:18
[2019-09-29] MEDS ORDERED: LORazepam 2 MG/ML INJ IV STA (09:16)
--- NOTE | 2019-09-29 09:41 | XR ---
EXAMINATION TYPE: XR chest 1V portable DATE OF EXAM: 09/29/2019 HISTORY: dyspnea. REFERENCE: Previous study dated 12/18/2018. FINDINGS: Heart is mildly enlarged. Lungs appear clear. Pleural space are clear. IMPRESSION: CARDIOMEGALY.
--- NOTE | 2019-09-29 09:43 | XR ---
EXAMINATION TYPE: XR soft tissue neck , 2 VIEWS DATE OF EXAM ORDERED: 09/29/2019 HISTORY: Cough and dyspnea. COMPARISON: None. FINDINGS: Prevertebral soft tissues are normal. The epiglottis is normal. There are degenerative reynaldo nges within the spine. There is some subglottic narrowing. IMPRESSION: MILD SUBGLOTTIC NARROWING WITHOUT OTHER ABNORMALITY.
[2019-09-29 10:02] LABS: Basophils % (A) 0 %; Eosinophils # (A) 0.2 k/uL (0-0.7); Eosinophils % (A) 3 %; HCT 42.9 % (34.0-46.0); HGB 14.4 gm/dL (11.4-16.0); Lymphocytes # (A) 1.9 k/uL (1.0-4.8); Lymphocytes % (A) 27 %; MCH 30.4 pg (25.0-35.0); MCHC 33.5 g/dL (31.0-37.0); Mean Platelet Volume 9.2; Monocytes # (A) 0.4 k/uL (0-1.0); Monocytes % (A) 6 %; Neutrophils # (A) 4.6 k/uL (1.3-7.7); Neutrophils % (A) 63 %; Platelet Count 212 k/uL (150-450); RBC 4.72 m/uL (3.80-5.40); RDW 13.1 % (11.5-15.5); WBC 7.3 k/uL (3.8-10.6)
[2019-09-29 10:14] LABS: INR 0.9 (<1.2); Partial Thromboplastin Time 24.1 sec (22.0-30.0); Prothrombin Time 9.8 sec (9.0-12.0)
[2019-09-29 10:16] LABS: Calcium 9.6 mg/dL (8.4-10.2); Potassium 4.2 mmol/L (3.5-5.1)
[2019-09-29] MEDS ORDERED: AMPICILLIN-SULBACTAM 3 GM in SODIUM CHLORIDE 0.9% 100 ML IVPB STA (11:46)
[2019-09-29] MEDS ORDERED: NALOXONE 0.4 MG/ML 1 ML VIAL IV PRN (12:14)
[2019-09-29] MEDS ORDERED: ALPRAZolam 0.5 MG TAB PO PRN (12:15)
[2019-09-29] MEDS: SODIUM CHLORIDE 0.9% 1,000 ML IV SCH (14:45)
[2019-09-29] MEDS ORDERED: DIPHENOX-ATROP 2.5-0.025 MG 1 EACH TAB PO PRN (16:10)
[2019-09-29] MEDS ORDERED: IPRATROPIUM-ALBUTEROL 3 ML NEB INHALATION PRN (16:10)
[2019-09-29] MEDS ORDERED: DICYCLOMINE 20 MG TAB PO PRN (16:10)
[2019-09-29] MEDS ORDERED: ACETAMINOPHEN TAB 325 MG TAB PO PRN (16:12)
[2019-09-29] MEDS ORDERED: HYDROcodone/APAP 5-325MG 1 EACH TAB PO STA (16:46)
--- NOTE | 2019-09-29 16:52 | P.HPIM ---
History of Present Illness H&P Date: 09/29/19 Chief Complaint: shortness of breath 58 are old female with PMH of asthma and COPD, tracheomalacia, history of DVT completed 3 months of anticoagulation therapy, TIA not on aspirin or Lipitor, history of colitis over the past 2 weeks presents to the ED for shortness of breath and hoarse voice. Patient states that she was taking care of her grandkids over the last 2 weekends and they have been sick coughing greenish sputum. Patient states that she developed a cough on Monday. Patient states that she had a postnasal drip that was causing coughing fits that would event ually lead to her vomiting. She also endorsed sore throat at that time for which she drank tea. Last night, patient experienced throat swelling and throat tightening along with stridor with no changes with head position. She also reported coughing up blood-tinged sputum. Her symptoms persisted, this prompted her to come to the ED. Patient currently reports a frontal headache associated with sinusitis. She denies any lower extremity swelling, current nausea or vomiting, fever or chills, chest pain, palpitations, changes in urination or appetite. She denies any dizziness, numbness/weakness/tingling of the extremities. In the ED, she underwent extensive evaluation. Her vital signs were relatively stable except for BP of 128/103 that resolved with Ativan. Neck x-ray showed subglottic narrowing. Chest x-ray showed cardiomegaly. Her symptoms improved with Ativan and racemic epinephrine. She is admitted for COPD exacerbation, shortness of breath related to tracheomalacia and follow pulmonology evaluation. Review of Systems Pertinent positives and negatives as discussed in HPI, a complete review of systems was performed and all other systems are negative. Past Medical History Past Medical History: Asthma, Heart Failure, COPD, CVA/TIA, GERD/Reflux, Hypertension, Sleep Apnea/CPAP/BIPAP, Thyroid Disorder Additional Past Medical History / Comment(s): THRUSH, Uses CPAP. Recurrent bronchitis. Chronic TRACHEOBRONCHOMALCIA. CHF with systolic dysfunction and EF of 40-45%. TACHYCARDIA. SCOLIOSIS. vocal cord dysfunction. Syncopy with TIA.c- diff 04-22-15 colitis, difficulty swallowing large pills and needs meat chopped up History of Any Multi-Drug Resistant Organisms: C-DIFF Date of last positivie culture/infection: 04/22/15 MDRO Source:: stool Past Surgical History: Cholecystectomy, Heart Catheterization, Orthopedic Surgery, Tubal Ligation, Uterine Ablation Additional Past Surgical History / Comment(s): HEART CATH. BREAST BIOPSY-NEG. COLON POLYP - NEG. D&C. BILATERAL KNEE. NECK CYST. BOWEL RESECTION. VOCAL CORD. BRONCHOSCOPY 3-6-15 PER PT FOUND HERPES SIMPLES BLISTERS IN LUNGS. HAS HAD 15 BRONCHS.rt arm tendon sx Past Anesthesia/Blood Transfusion Reactions: Postoperative Nausea & Vomiting (P ONV) Additional Past Anesthesia/Blood Transfusion Reaction / Comment(s): Pt has never recieved blood. Past Psychological History: Anxiety Additional Psychological History / Comment(s): USES WALKER, CANE NEEDED. Smoking Status: Never smoker Past Alcohol Use History: None Reported Past Drug Use History: None Reported - Past Family History Father Family Medical History: Cancer, Congestive Heart Failure (CHF), CVA/TIA, Myocardial Infarction ([place]), Prostate Disorder Additional Family Medical History / Comment(s): at age 84- chocked on a hot dog Mother Family Medical History: Cancer, Osteoarthritis (OA) Additional Family Medical History / Comment(s): mom is 84 breast ca surviver. Medications and Allergies Home Medications Medication Instructions Recorded Confirmed Type Albuterol Sulfate [Proair Hfa] 1 - 2 puff INHALATION RT-Q4H PRN 04/11/14 09/29/19 History Ascorbic Acid [Vitamin C] 500 mg PO DAILY 04/11/14 09/29/19 History EPINEPHrine (Auto Inject) [Epipen] 0.3 mg IM ONCE PRN 04/11/14 09/29/19 History Famotidine [Pepcid] 20 mg PO BID 04/11/14 09/29/19 History Zinc 50 mg PO DAILY 04/11/14 09/29/19 History Calcium Carbonate/Vitamin D3 1 tab PO DAILY 12/08/14 09/29/19 History [Calcium 600-Vit D3 400 Tablet] Nystatin [Nystop] 1 applic TOPICAL Q12H PRN 12/08/14 09/29/19 History Magnesium Oxide [Mag-Ox] 250 mg PO DAILY 12/18/14 09/29/19 History Furosemide [Lasix] 40 mg PO BID@0700,1500 04/22/15 09/29/19 History Potassium Chloride [Klor-Con 20] 20 meq PO DAILY 04/22/15 09/29/19 History ALPRAZolam [Xanax] 0.5 mg PO Q8H #90 tablet 05/11/15 09/29/19 Rx Mometasone/Formoterol [Dulera 200 2 puff INHALATION RT-BID 09/12/15 09/29/19 History Mcg/5 Mcg Inhaler] Cetirizine HCl [Zyrtec] 10 mg PO DAILY 12/21/15 09/29/19 History Montelukast [Singulair] 10 mg PO HS 12/21/15 09/29/19 History Levothyroxine Sodium [Synthroid] 50 mcg PO DAILY 03/03/16 09/29/19 History Metoprolol Tartrate [Lopressor] 75 mg PO BID 01/09/17 09/29/19 History Nystatin 100,000 Unit/ml Susp 5 ml PO QID PRN 01/09/17 09/29/19 History [Mycostatin Oral Susp] Cholecalciferol [Vitamin D3 (25 5,000 unit PO DAILY 09/10/17 09/29/19 History Mcg = 1000 Iu)] L.acidoph,Paracasei, B.lactis 1 cap PO DAILY 09/10/17 09/29/19 History [Probiotic] Dicyclomine [Bentyl] 20 mg PO TID PRN 12/15/18 09/29/19 History Diphenox-Atrop 2.5-0.025 mg 1 tab PO QID PRN 12/15/18 09/29/19 History [Lomotil] Ipratropium-Albuterol Nebulize 3 ml INHALATION RT-QID PRN 12/15/18 09/29/19 History [Duoneb 0.5 mg-3 mg/3 ml Soln] Allergies Allergy/AdvReac Type Severity Reaction Status Date / Time Aminoglycosides Allergy Unknown Verified 09/29/19 12:16 honey Allergy Anaphylaxis Verified 09/29/19 12:16 moxifloxacin HCl Allergy Unknown Verified 09/29/19 12:16 [From Avelox] peanut Allergy Anaphylaxis Verified 09/29/19 12:16 azithromycin [From Zithromax] AdvReac Nausea & Verified 09/29/19 12:16 Vomiting & Diarrhea clindamycin AdvReac Dyspnea Verified 09/29/19 12:16 corn AdvReac Nausea & Verified 09/29/19 12:16 Vomiting & Diarrhea lactose AdvReac Nausea Verified 09/29/19 12:16 levofloxacin [From Levaquin] AdvReac Dyspnea Verified 09/29/19 12:16 neomycin [Neomycin] AdvReac Dyspnea Verified 09/29/19 12:16 omalizumab [From Xolair] AdvReac Dyspnea Verified 09/29/19 12:16 sulfamethoxazole AdvReac Diarrhea/co Verified 09/29/19 12:16 [From Bactrim] litis trimethoprim [From Bactrim] AdvReac Diarrhea/co Verified 09/29/19 12:16 litis Physical Exam Vitals: Vital Signs Temp Pulse Pulse Resp BP BP Pulse Ox 09/29/19 13:30 98.1 F 85 16 119/79 98 09/29/19 10:34 75 18 124/74 99 09/29/19 09:45 82 25 H 118/56 99 09/29/19 09:31 89 09/29/19 09:28 90 28 H 128/103 99 09/29/19 09:18 92 09/29/19 09:17 90 09/29/19 09:05 89 09/29/19 08:50 28 H 09/29/19 08:48 97.3 F L 87 29 H 147/77 97 Intake and Output 09/29/19 09/29/19 09/29/19 06:59 14:59 22:59 Intake Total 540 Balance 540 Intake: Oral 540 Other: # Voids 2 2 Weight 114.3 kg General: [non toxic], [hoarse voice], [appears at stated age] Derm: [warm], [dry] Head: [atraumatic], [normocephalic], [symmetric] Eyes: [EOMI], [no lid lag], [anicteric sclera] Mouth: [no lip lesion], [mucus membranes moist] Cardiovascular: [S1S2 reg], [no murmur], [positive DP pulse bilateral], Lungs: [diffuse wheezing bilateral], [no rhonchi, no rales] , [no accessory muscle use] Abdominal: [soft], [ nontender to palpation], [no guarding], [no appreciable organomegaly] Ext: [no gross muscle atrophy], [no edema], [no contractures] Neuro: [ CN II-XI grossly intact], [no focal neuro deficits] Psych: [Alert], [oriented], [appropriate affect] Results CBC & Chem 7: 09/29/19 09:07 09/29/19 09:07 Labs: Abnormal Lab Results - Last 24 Hours (Table) 09/29/19 Range/Units 09:07 Chloride 109 H (98-107) mmol/L BUN 19 H (7-17) mg/dL Creatinine 1.08 H (0.52-1.04) mg/dL Thrombosis Risk Factor Assmnt - Choose All That Apply Each Factor Represents 1 point: Age 41-60 years Thrombosis Risk Factor Assessment Total Risk Factor Score: 1 Thrombosis Risk Factor Assessment Level: Low Risk Assessment and Plan Assessment: Shortness of breath likely due to tracheomalacia and COPD exacerbation Acute kidney injury History of TIA History of DVT in the left lower extremity Hypertension Hypothyroidism 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 Chest x-ray negative. Patient improved with Decadron and racemic epinephrine given the ED along with Ativan. Plans: Continue Decadron. DuoNeb as needed for shortness of breath and wheezing. Supplemental oxygen to maintain O2 saturation greater than 92%. Repeat echocardiogram. Follow pulmonology consultation. BUN 19, creatinine 1.08. Likely due to dehydration. Plans: Given 1 L bolus in the ED. Avoid nephrotoxins. Repeat BMP tomorrow morning. Plans: Patient would benefit from aspirin and Lipitor. Completed therapy. Plans: DVT prophylaxis. Plans: Continue metoprolol. Monitor vitals, adjust medications as necessary. Plans: Resume Synthroid. Euvolemic. Plans: Ensure adequate blood pressure control. Would benefit from ALVARO inhibitor. Last echocardiogram in 2013, will repeat prior to initiating medications. DVT prophylaxis: [heparin] Discussed with: [patient and sister] Anticipated discharge: [1-2 days] Anticipated discharge place: [home] A total of [45] minutes was spent on the care of this complex patient more than 50% of the time was spent in counseling and care coordination. patient names her sister Raeann decision-maker in the case that she can make decisions for herself. Patient reiterates wanting to remain full code at this time.
[2019-09-29] MEDS: DEXAMETHASONE SOD PHOSPHATE 4 MG/ML 1 ML VIAL IV SCH ×2 (17:16→23:48)
[2019-09-29] MEDS: IPRATROPIUM-ALBUTEROL 3 ML NEB INHALATION SCH (20:02)
[2019-09-29] MEDS: METOPROLOL TARTRATE 25 MG TAB PO SCH (21:32)
[2019-09-29] MEDS: FAMOTIDINE 20 MG TAB PO SCH (21:32)
[2019-09-29] MEDS: HEPARIN SODIUM,PORCINE 5,000 UNIT/ML 1 ML VIAL SQ SCH (21:32)
[2019-09-29] MEDS: MONTELUKAST 10 MG TAB PO SCH (21:32)
[2019-09-29] MEDS: BENZOCAINE/MENTHOL LOZENG 1 EACH LOZENGE MUCOUS MEM PRN (21:33)
[2019-09-29] MEDS: LORazepam 2 MG/ML INJ IV SCH (21:33)
[2019-09-29] MEDS: HYDROcodone/APAP 5-325MG 1 EACH TAB PO PRN (21:48)
[2019-09-30] MEDS: IPRATROPIUM-ALBUTEROL 3 ML NEB INHALATION SCH ×6 (00:38→21:36)
[2019-09-30] MEDS: DEXAMETHASONE SOD PHOSPHATE 4 MG/ML 1 ML VIAL IV SCH ×4 (06:07→23:43)
[2019-09-30] MEDS: LEVOTHYROXINE 50 MCG TAB PO SCH (06:08)
[2019-09-30 07:36] LABS: Calcium 9.3 mg/dL (8.4-10.2)
[2019-09-30 07:44] LABS: Potassium 4.8 mmol/L (3.5-5.1)
[2019-09-30] MEDS: FAMOTIDINE 20 MG TAB PO SCH ×2 (08:16→22:03)
[2019-09-30] MEDS: FUROSEMIDE 40 MG TAB PO SCH ×2 (08:16→14:48)
[2019-09-30] MEDS: METOPROLOL TARTRATE 25 MG TAB PO SCH ×2 (08:16→22:01)
[2019-09-30] MEDS: LORATADINE 10 MG TAB PO SCH (08:16)
[2019-09-30] MEDS: HEPARIN SODIUM,PORCINE 5,000 UNIT/ML 1 ML VIAL SQ SCH ×2 (08:16→22:03)
[2019-09-30] MEDS: LORazepam 2 MG/ML INJ IV SCH ×2 (08:23→22:03)
--- NOTE | 2019-09-30 10:46 | ECHOF ---
Referral Reason:SOB MEASUREMENTS -------- HEIGHT: 175.3 cm WEIGHT: 113.9 kg BP: 113/75 RVIDd: 2.4 cm (< 3.3) IVSd: 1.2 cm (0.6 - 1.1) LVIDd: 5.0 cm (3.9 - 5.3) LVPWd: 1.2 cm (0.6 - 1.1) IVSs: 1.8 cm LVIDs: 3.4 cm LVPWs: 1.5 cm LAESV Index (A-L): 16.38 ml/m Ao Diam: 2.7 cm (2.0 - 3.7) AV Cusp: 2.3 cm (1.5 - 2.6) LA Diam: 3.4 cm (2.7 - 3.8) MV EXCURSION: 18.450 mm (> 18.000) MV EF SLOPE: 136 mm/s (70 - 150) EPSS: 0.5 cm MV E Henrry: 0.59 m/s MV DecT: 200 ms MV A Henrry: 0.59 m/s MV E/A Ratio: 1.00 RAP: 5.00 mmHg RVSP: 27.37 mmHg FINDINGS -------- Sinus rhythm. This was a technically adequate study. The left ventricular size is normal. There is mild concentric left ventricular hypertrophy. Overa ll left ventricular systolic function is low-normal with, an EF between 50 - 55 %. The diastolic fi lling pattern is normal for the age of the patient 9.19. The right ventricle is normal in size. Normal LA size by volume 22+/-6 ml/m2. The right atrial size is normal. Interatrial and interventricular septum intact. The aortic valve is trileaflet and appears structurally normal. There is no evidence of aortic regu rgitation. There is no evidence of aortic stenosis. There is trace mitral regurgitation. Mild tricuspid regurgitation present. There is no evidence of pulmonary hypertension. The right v entricular systolic pressure, as measured by Doppler, is 27.37mmHg. There is no pulmonic regurgitation present. The aortic root size is normal. Normal inferior vena cava with normal inspiratory collapse consistent with estimated right atrial pre ssure of 5 mmHg. There is no pericardial effusion. CONCLUSIONS -------- 1. Sinus rhythm. 2. This was a technically adequate study. 3. The left ventricular size is normal. 4. There is mild concentric left ventricular hypertrophy. 5. Overall left ventricular systolic function is low-normal with, an EF between 50 - 55 %. 6. The diastolic filling pattern is normal for the age of the patient 9.19 7. The right ventricle is normal in size. 8. Normal LA size by volume 22+/-6 ml/m2. 9. The right atrial size is normal. 10. Interatrial and interventricular septum intact. 11. The aortic valve is trileaflet and appears structurally normal. 12. There is no evidence of aortic regurgitation. 13. There is no evidence of aortic stenosis. 14. There is trace mitral regurgitation. 15. Mild tricuspid regurgitation present. 16. There is no evidence of pulmonary hypertension. 17. The right ventricular systolic pressure, as measured by Doppler, is 27.37mmHg. 18. There is no pulmonic regurgitation present. 19. The aortic root size is normal. 20. Normal inferior vena cava with normal inspiratory collapse consistent with estimated right atrial pressure of 5 mmHg. 21. There is no pericardial effusion. SLICING MACHINE FEEDER: Gloria Whitt RDCS
[2019-09-30] MEDS: HYDROcodone/APAP 5-325MG 1 EACH TAB PO PRN ×2 (12:09→22:01)
[2019-09-30] MEDS: SODIUM CHLORIDE 0.9% 1,000 ML IV SCH (14:48)
--- NOTE | 2019-09-30 14:53 | P.CNPUL ---
History of Present Illness Consult date: 09/30/19 Reason for consult: dyspnea History of present illness: 58-year-old female patient, very well-known to me, known history of severe tracheal bronchomalacia and asthma in addition to history of paradoxic vocal cord activity/morning, obstructive sleep apnea, and history of recurrent dysphonia, came into the hospital because of increased cough and shortness of breath and nausea breathing. It was felt that the patient was having some stridor. Apparently the patient was taking care of her grandkids and some of her grandkids were sick with respiratory illnesses. Subsequently she became ill and she felt her throat was also swelling and was tight. X-ray of the neck was done and showed some limited narrowing of the subglottic trachea. Nevertheless, clinically the patient was able to speak in full sentences and talk without any major difficulties. Her voice was quite hoarse and she was bringing up yellowish sputum. No painful swallow. No drooling. No reported fever or chills. No palpitation. No chest pain. No nausea. No vomiting. Chest exit showed cardiomegaly. no other acute abnormalities were noted. The patient was admitted to the hospital. The patient is currently receiving albuterol and ipratropium nebulized treatments 4 times a day, IV Unasyn, Decadron 4 mg every 6 hours. She is already feeling better. Review of Systems Constitutional: Denies chills, Denies fever Eyes: denies as per HPI, denies blurred vision, denies bulging eye, denies decreased vision, denies diplopia, denies discharge, denies dry eye, denies irritation, denies itching, denies pain, denies photophobia, denies loss of peripheral vision, denies loss of vision, denies tunnel vision/blind spots Ears: deny: decreased hearing, ear discharge, earache, tinnitus Ears, nose, mouth and throat: Reports hoarseness, Reports swelling in throat Breasts: absent: as per HPI, change in shape, gynecomastia, masses, nipple discharge, pain, skin changes, swelling Cardiovascular: Reports decreased exercise tolerance, Reports dyspnea on exertion Respiratory: Reports cough, Reports dyspnea, Reports excessive sputum, Reports respiratory infections, Reports sleep apnea, Reports snoring, Reports wheezing Gastrointestinal: Reports as per HPI Genitourinary: Reports as per HPI Menstruation: Reports as per HPI Musculoskeletal: Reports as per HPI Musculoskeletal: absent: ankle pain, ankle stiffness, ankle swelling Integumentary: Reports as per HPI Neurological: Reports as per HPI Psychiatric: Reports as per HPI Endocrine: Reports as per HPI Hematologic/Lymphatic: Reports as per HPI Allergic/Immunologic: Reports as per HPI Past Medical History Past Medical History: Asthma, Heart Failure, COPD, CVA/TIA, GERD/Reflux, Hypertension, Sleep Apnea/CPAP/BIPAP, Thyroid Disorder Additional Past Medical History / Comment(s): Severe persistent bronchial asthma, severe tracheal bronchomalacia, paradoxic vocal cord function, episodic dysphonia, obstructive sleep apnea, obesity, CHF with systolic dysfunction and EF of 40-45%. TACHYCARDIA. SCOLIOSIS. vocal cord dysfunction, TIA., c -diff 04-22-15 History of Any Multi-Drug Resistant Organisms: C-DIFF Date of last positivie culture/infection: 04/22/15 MDRO Source:: stool Past Surgical History: Cholecystectomy, Heart Catheterization, Orthopedic Surgery, Tubal Ligation, Uterine Ablation Additional Past Surgical History / Comment(s): HEART CATH. BREAST BIOPSY-NEG. COLON POLYP - NEG. D&C. BILATERAL KNEE. NECK CYST. BOWEL RESECTION. VOCAL CORD. BRONCHOSCOPY 12-19-14 PER PT FOUND HERPES SIMPLES BLISTERS IN LUNGS. HAS HAD 15 BRONCHS.rt arm tendon sx Past Anesthesia/Blood Transfusion Reactions: Postoperative Nausea & Vomiting (PONV) Additional Past Anesthesia/Blood Transfusion Reaction / Comment(s): Pt has never recieved blood. Past Psychological History: Anxiety Additional Psychological History / Comment(s): USES WALKER, CANE NEEDED. Smoking Status: Never smoker Past Alcohol Use History: None Reported Past Drug Use History: None Reported - Past Family History Father Family Medical History: Cancer, Congestive Heart Failure (CHF), CVA/TIA, Myocardial Infarction ([place]), Prostate Disorder Additional Family Medical History / Comment(s): at age 84- chocked on a hot dog Mother Family Medical History: Cancer, Osteoarthritis (OA) Additional Family Medical History / Comment(s): mom is 84 breast ca surviver. Medications and Allergies Home Medications Medication Instructions Recorded Confirmed Type Albuterol Sulfate [Proair Hfa] 1 - 2 puff INHALATION RT-Q4H PRN 04/11/1409/29 History Ascorbic Acid [Vitamin C] 500 mg PO DAILY 04/11/14 09/29/19 History EPINEPHrine (Auto Inject) [Epipen] 0.3 mg IM ONCE PRN 04/11/14 09/29/19 History Famotidine [Pepcid] 20 mg PO BID 04/11/14 09/29/19 History Zinc 50 mg PO DAILY 04/11/14 09/29/19 History Calcium Carbonate/Vitamin D3 1 tab PO DAILY 12/08/14 09/29/19 History [Calcium 600-Vit D3 400 Tablet] Nystatin [Nystop] 1 applic TOPICAL Q12H PRN 12/08/14 09/29/19 History Magnesium Oxide [Mag-Ox] 250 mg PO DAILY 12/18/14 09/29/19 History Furosemide [Lasix] 40 mg PO BID@0700,1500 04/22/15 09/29/19 History Potassium Chloride [Klor-Con 20] 20 meq PO DAILY 04/22/15 09/29/19 History ALPRAZolam [Xanax] 0.5 mg PO Q8H #90 tablet 05/11/15 09/29/19 Rx Mometasone/Formoterol [Dulera 200 2 puff INHALATION RT-BID 09/12/15 09/29/19 History Mcg/5 Mcg Inhaler] Cetirizine HCl [Zyrtec] 10 mg PO DAILY 12/21/15 09/29/19 History Montelukast [Singulair] 10 mg PO HS 12/21/15 09/29/19 History Levothyroxine Sodium [Synthroid] 50 mcg PO DAILY 03/03/16 09/29/19 History Metoprolol Tartrate [Lopressor] 75 mg PO BID 01/09/17 09/29/19 History Nystatin 100,000 Unit/ml Susp 5 ml PO QID PRN 01/09/17 09/29/19 History [Mycostatin Oral Susp] Cholecalciferol [Vitamin D3 (25 5,000 unit PO DAILY 09/10/17 09/29/19 History Mcg = 1000 Iu)] L.acidoph,Paracasei, B.lactis 1 cap PO DAILY 09/10/17 09/29/19 History [Probiotic] Dicyclomine [Bentyl] 20 mg PO TID PRN 12/15/18 09/29/19 History Diphenox-Atrop 2.5-0.025 mg 1 tab PO QID PRN 12/15/18 09/29/19 History [Lomotil] Ipratropium-Albuterol Nebulize 3 ml INHALATION RT-QID PRN 12/15/18 09/29/19 History [Duoneb 0.5 mg-3 mg/3 ml Soln] Allergies Allergy/AdvReac Type Severity Reaction Status Date / Time Aminoglycosides Allergy Unknown Verified 09/29/19 12:16 honey Allergy Anaphylaxis Verified 09/29/19 12:16 moxifloxacin HCl Allergy Unknown Verified 09/29/19 12:16 [From Avelox] peanut Allergy Anaphylaxis Verified 09/29/19 12:16 azithromycin [From Zithromax] AdvReac Nausea & Verified 09/29/19 12:16 Vomiting & Diarrhea clindamycin AdvReac Dyspnea Verified 09/29/19 12:16 levofloxacin [From Levaquin] AdvReac Dyspnea Verified 09/29/19 12:16 neomycin [Neomycin] AdvReac Dyspnea Verified 09/29/19 12:16 omalizumab [From Xolair] AdvReac Dyspnea Verified 09/29/19 12:16 sulfamethoxazole AdvReac Diarrhea/co Verified 09/29/19 12:16 [From Bactrim] litis trimethoprim [From Bactrim] AdvReac Diarrhea/co Verified 09/29/19 12:16 litis Physical Exam Vitals: Vital Signs Temp Pulse Pulse Resp BP Pulse Ox 09/30/19 12:15 92 09/30/19 12:05 88 09/30/19 08:06 96 09/30/19 08:00 16 09/30/19 07:51 92 96 09/30/19 05:35 97.6 F 96 16 97/62 96 09/29/19 21:03 98.5 F 99 19 113/75 93 L 09/29/19 20:11 88 09/29/19 20:02 85 Intake and Output 09/29/19 09/30/19 09/30/19 22:59 06:59 14:59 Intake Total 480 Balance 480 Intake: Oral 480 Other: # Voids 1 1 1 obese, comfortable lUncomfortable and the patient is not in acute respiratory distress Head exam was generally normal. There was no scleral icterus or corneal arcus. Mucous membranes were moist. Neck was supple and without jugular venous distension, thyromegaly, or carotid bruits. Carotids were easily palpable bilaterally. There was no adenopathy. Lungs sounds are diminished and the patient has scattered expiratory wheezes throughout lung his bilaterally. There is prolongation of expiration phase of breathing. Cardiac exam revealed the PMI to be normally situated and sized. The rhythm was regular and no extrasystoles were noted during several minutes of auscultation. The first and second heart sounds were normal and physiologic splitting of the second heart sound was noted. There were no murmurs, rubs, clicks, or gallops. Abdominal exam revealed normal bowel sounds. The abdomen was soft, non-tender, and without masses, organomegaly, or appreciable enlargement of the abdominal aorta. Examination of the extremities revealed easily palpable radial, femoral and pedal pulses. There was no cyanosis, clubbing or edema. Examination of the skin revealed no evidence of significant rashes, suspicious appearing nevi or other concerning lesions. Neurologically awake and alert and there is no focal neurological deficit. Results - Laboratory Findings CBC and BMP: 09/29/19 09:07 09/30/19 06:55 PT/INR, D-dimer PT 9.8 sec (9.0-12.0) 09/29/19 09:07 INR 0.9 (<1.2) 09/29/19 09:07 Abnormal lab findings: Abnormal Labs 09/29/19 09/30/19 09:07 06:55 Chloride 109 H 110 H BUN 19 H 23 H Creatinine 1.08 H Glucose 138 H - Diagnostic Findings Chest x-ray: image reviewed Assessment and Plan Plan: 1 acute bronchitis exacerbating the patient's chronic obstructive lung disease/asthma. 2 severe tracheal bronchomalacia 3 chronic hoarseness with episodic dysphonia 4 obstructive sleep apnea. 5 severe persistent bronchial asthma 6 CHF with history of systolic and diastolic heart failure with an ejection fraction 45% currently inactive in stable 7 hypothyroidism 8 hypertension 9 previous history of DVT of the left lower extremity treated and currently the patient is known to coagulation 10 history of TIA Plan continue current treatment. Clinically improved. No evidence of any stridor. The patient has no upper airway obstruction at this point in time. Culture sputum is being coughed out. Continue Decadron. Continue bronchodilators. Continue IV Unasyn. We'll follow.
--- NOTE | 2019-09-30 14:59 | P.PN ---
Subjective Progress Note Date: 09/30/19 patient seen and examined at bedside, starting to report a productive cough with green yellowish sputum, last was short of breath worse with exertion reports ongoing wheezing. Currently on 2 L via nasal cannula reporting no history of baseline O2. She reports compliance with CPAP. patient reports hoarseness and feeling like her throat is closing over. No acute events overnight Objective - Vital Signs Vital signs: Vital Signs Temp 97.6 F 09/30/19 05:35 Pulse 92 09/30/19 12:15 Resp 16 09/30/19 08:00 BP 97/62 09/30/19 05:35 Pulse Ox 96 09/30/19 07:51 Intake & Output 09/29/19 09/30/19 09/30/19 18:59 06:59 18:59 Intake Total 540 480 Balance 540 480 Weight 114.3 kg Intake: Oral 540 480 Other: # Voids 2 1 1 - Exam Constitutional: No acute distress, conversant, pleasant Eyes: Anicteric sclerae, moist conjunctiva, no lid-lag, PERRLA ENMT: NC/AT,Oropharynx clear, no erythema, exudates Neck:Supple, FROM, no masses, or JVD, No carotid bruits; No thyromegaly Lungs: diffuse wheezes, diminished in the bases, unlabored on 2 L via nasal ca nnula Cardiovascular: Heart regular in rate and rhythm, No murmurs, gallops, or rubs no peripheral edema Abdominal: Soft Nontender, nom distended, no guarding, no rebound or rigidity, Normoactive bowel sounds No hepatomegaly, No splenomegaly, No palpable mass No abdominal wall hernia noted Skin: Normal temperature, tone, texture, turgor, No induration No subcutaneous nodules, No rash, lesions, No ulcers Extremities:No digital cyanosis No clubbing, Pedal pulses intact and symmetrical Radial pulses intact and symmetrical Normal gait and station, No calf tenderness Psychiatric: Alert and oriented to person, place and time, Appropriate affect Intact judgement Neuro: Muscles Strength 5/5 in all 4 extremities, Sensation to light touch grossly present throughout, Cranial nerves II-XII grossly intact. No focal sensory deficits - Labs CBC & Chem 7: 09/29/19 09:07 09/30/19 06:55 Labs: Abnormal Lab Results - Last 24 Hours (Table) 09/30/19 Range/Units 06:55 Chloride 110 H (98-107) mmol/L BUN 23 H (7-17) mg/dL Glucose 138 H (74-99) mg/dL Microbiology - Last 24 Hours (Table) 09/29/19 09:04 Group A Strep Throat Culture - Preliminary Throat Assessment and Plan Assessment: acute COPD exacerbation in the setting of tracheomalacia Acute tracheobronchitis * continue IV steroids with Decadron, continue bronchodilator DuoNeb A/A breathing treatments scheduled and PRN * patient initiated on IV antibiotics with Unasyn by pulmonary * Appreciate pulmonary recommendations Acute kidney injury * mild resolved with hydration History of TIA History of DVT in the left lower extremity Hypertension * blood pressure stable and controlled continue current regimen Hypothyroidism chronic combined systolic and diastolic CHF with EF 45-50% * clinically euvolemic continue Lasix 40 mg PO BIDand metoprolol 75 mg PO BID disposition * Continue current treatment plan anticipated discharge to 3 days
[2019-09-30] MEDS ORDERED: AMPICILLIN-SULBACTAM 3 GM in SODIUM CHLORIDE 0.9% 100 ML IVPB SCH (16:00)
[2019-09-30] MEDS: AMPICILLIN-SULBACTAM 3 GM in SODIUM CHLORIDE 0.9% 100 ML IVPB SCH ×2 (17:29→23:42)
[2019-09-30] MEDS: MONTELUKAST 10 MG TAB PO SCH (22:01)
[2019-09-30] MEDS: BENZOCAINE/MENTHOL LOZENG 1 EACH LOZENGE MUCOUS MEM PRN (22:12)
[2019-10-01] MEDS: IPRATROPIUM-ALBUTEROL 3 ML NEB INHALATION SCH ×7 (00:31→23:43)
[2019-10-01] MEDS: DEXAMETHASONE SOD PHOSPHATE 4 MG/ML 1 ML VIAL IV SCH ×3 (05:40→17:48)
[2019-10-01] MEDS: AMPICILLIN-SULBACTAM 3 GM in SODIUM CHLORIDE 0.9% 100 ML IVPB SCH ×3 (05:40→17:48)
[2019-10-01] MEDS: LEVOTHYROXINE 50 MCG TAB PO SCH (05:42)
[2019-10-01] MEDS: METOPROLOL TARTRATE 25 MG TAB PO SCH ×2 (08:13→21:33)
[2019-10-01] MEDS: FUROSEMIDE 40 MG TAB PO SCH ×2 (08:13→16:27)
[2019-10-01] MEDS: HEPARIN SODIUM,PORCINE 5,000 UNIT/ML 1 ML VIAL SQ SCH ×2 (08:13→21:34)
[2019-10-01] MEDS: FAMOTIDINE 20 MG TAB PO SCH ×2 (08:14→21:34)
[2019-10-01] MEDS: LORazepam 2 MG/ML INJ IV SCH ×2 (08:14→21:34)
[2019-10-01] MEDS: LORATADINE 10 MG TAB PO SCH (08:14)
--- NOTE | 2019-10-01 09:22 | P.PN ---
Subjective Progress Note Date: 10/01/19 58-year-old female patient, very well-known to me, known history of severe tracheal bronchomalacia and asthma in addition to history of paradoxic vocal cord activity/morning, obstructive sleep apnea, and history of recurrent dysphonia, came into the hospital because of increased cough and shortness of br eath and nausea breathing. It was felt that the patient was having some stridor. Apparently the patient was taking care of her grandkids and some of her grandkids were sick with respiratory illnesses. Subsequently she became ill and she felt her throat was also swelling and was tight. X-ray of the neck was done and showed some limited narrowing of the subglottic trachea. Nevertheless, clinically the patient was able to speak in full sentences and talk without any major difficulties. Her voice was quite hoarse and she was bringing up yellowish sputum. No painful swallow. No drooling. No reported fever or chills. No palpitation. No chest pain. No nausea. No vomiting. Chest exit s howed cardiomegaly. no other acute abnormalities were noted. The patient was admitted to the hospital. The patient is currently receiving albuterol and ipratropium nebulized treatments 4 times a day, IV Unasyn, Decadron 4 mg every 6 hours. She is already feeling better. on 10/01/2019 the patient is still having difficulties with her throat, noisy breathing, questionable stridorous inhalation and diffuse inspiratory next 30 wheezes throughout the lung raphael bilaterally. Rest or secretions have subsided. Influenza screen was negative. Rapid strep screen was negative. Pro-calcitonin level was at 0.1. She is afebrile. No leukocytosis. Is on Decadron. She is on Unasyn. I think it's paradoxic vocal cord dysfunction/mobility. I think it's worthwhile to have an ENT evaluation regar ding these findings. Objective - Vital Signs Vital signs: Vital Signs Temp 98.2 F 10/01/19 06:11 Pulse 72 10/01/19 08:15 Resp 22 10/01/19 06:11 BP 123/75 10/01/19 06:11 Pulse Ox 95 10/01/19 06:11 Intake & Output 09/30/19 10/01/19 10/01/19 18:59 06:59 18:59 Intake Total 870 Balance 870 Intake: Oral 870 Other: # Voids 1 2 - Exam obese, comfortable lUncomfortable and the patient is not in acute respiratory distress Head exam was generally normal. There was no scleral icterus or corneal arcus. Mucous membranes were moist. Neck was supple and without jugular venous distension, thyromegaly, or carotid bruits. Carotids were easily palpable bilaterally. There was no adenopathy. Lungs sounds are diminished and the patient has scattered expiratory wheezes throughout lung his bilaterally. There is prolongation of expiration phase of breathing. Cardiac exam revealed the PMI to be normally situated and sized. The rhythm was regular and no extrasystoles were noted during several minutes of auscultation. The first and second heart sounds were normal and physiologic splitting of the second heart sound was noted. There were no murmurs, rubs, clicks, or gallops. Abdominal exam revealed normal bowel sounds. The abdomen was soft, non-tender, and without masses, organomegaly, or appreciable enlargement of the abdominal aorta. Examination of the extremities revealed easily palpable radial, femoral and pedal pulses. There was no cyanosis, clubbing or edema. Examination of the skin revealed no evidence of significant rashes, suspicious appearing nevi or other concerning lesions. Neurologically awake and alert and there is no focal neurological deficit. - Labs CBC & Chem 7: 09/29/19 09:07 09/30/19 06:55 Labs: Abnormal Lab Results - Last 24 Hours (Table) 09/30/19 Range/Units 06:55 Procalcitonin 0.10 H (0.02-0.09) ng/mL Assessment and Plan Plan: 1 acute bronchitis exacerbating the patient's chronic obstructive lung disease/asthma. 2 severe tracheal bronchomalacia 3 chronic hoarseness with episodic dysphonia, questionable stridor which I attribute to paradoxic vocal cord function 4 obstructive sleep apnea. 5 severe persistent bronchial asthma 6 CHF with history of systolic and diastolic heart failure with an ejection fraction 45% currently inactive in stable 7 hypothyroidism 8 hypertension 9 previous history of DVT of the left lower extremity treated and currently the patient is known to coagulation 10 history of TIA Plan continue current treatment. Clinically improved. ENT evaluation will be requested regarding the paradoxic vocal cord dysfunction/questionable stridor. The patient has no upper airway obstruction at this point in time. Culture sputum . Continue Decadron. Continue bronchodilators. Continue IV Unasyn. We'll follow.with improvement since yesterday. Pro calcitonin level is slightly elevated. We'll continue to follow
--- NOTE | 2019-10-01 09:25 | P.PN ---
Subjective Progress Note Date: 10/01/19 patient seen and examined at bedside, reporting poor sleep overnight. Having ongoing productive cough sputum production of mucus yellow-green. Also reports head congestion. No acute events overnight. Pro-calcitonin 0.1, continues on Unasyn.influenza was negative, patient afebrile. Objective - Vital Signs Vital signs: Vital Signs Temp 98.2 F 10/01/19 06:11 Pulse 72 10/01/19 08:15 Resp 22 10/01/19 06:11 BP 123/75 10/01/19 06:11 Pulse Ox 95 10/01/19 06:11 Intake & Output 09/30/19 10/01/19 10/01/19 18:59 06:59 18:59 Intake Total 870 Balance 870 Intake: Oral 870 Other: # Voids 1 2 - Exam Constitutional: No acute distress, conversant, pleasant Eyes: Anicteric sclerae, moist conjunctiva, no lid-lag, PERRLA ENMT: NC/AT,Oropharynx clear, no erythema, exudates Neck:Supple, FROM, no masses, or JVD, No carotid bruits; No thyromegaly Lungs: diffuse wheezes, diminished in the bases, unlabored on 2 L via nasal cannula Cardiovascular: Heart regular in rate and rhythm, No murmurs, gallops, or rubs no peripheral edema Abdominal: Soft Nontender, nom distended, no guarding, no rebound or rigidity, Normoactive bowel sounds No hepatomegaly, No splenomegaly, No palpable mass No abdominal wall hernia noted Skin: Normal temperature, tone, texture, turgor, No induration No subcutaneous nodules, No rash, lesions, No ulcers Extremities:No digital cyanosis No clubbing, Pedal pulses intact and symmetrical Radial pulses intact and symmetrical Normal gait and station, No calf tenderness Psychiatric: Alert and oriented to person, place and time, Appropriate affect Intact judgement Neuro: Muscles Strength 5/5 in all 4 extremities, Sensation to light touch grossly present throughout, Cranial nerves II-XII grossly intact. No focal sensory deficits - Labs CBC & Chem 7: 09/29/19 09:07 09/30/19 06:55 Labs: Abnormal Lab Results - Last 24 Hours (Table) 09/30/19 Range/Units 06:55 Procalcitonin 0.10 H (0.02-0.09) ng/mL Assessment and Plan Assessment: acute COPD exacerbation in the setting of tracheomalacia Acute tracheobronchitis * continue IV steroids with Decadron, continue bronchodilator DuoNeb A/A breathing treatments scheduled and PRN * patient initiated on IV antibiotics with Unasyn by pulmonary * Appreciate pulmonary recommendations Acute kidney injury * mild resolved with hydration History of TIA History of DVT in the left lower extremity Hypertension * blood pressure stable and controlled continue current regimen Hypothyroidism chronic combined systolic and diastolic CHF with EF 45-50% * clinically euvolemic continue Lasix 40 mg PO BID and metoprolol 75 mg PO BID disposition * Continue current treatment plan anticipated discharge to 1-2 days
[2019-10-01] MEDS: SODIUM CHLORIDE 0.9% 1,000 ML IV SCH (16:27)
--- NOTE | 2019-10-01 20:46 | CONS ---
CONSULTATION REASON FOR CONSULTATION: Vocal cord check, tracheomalacia history. HISTORY OF PRESENT ILLNESS: This is a 58-year-old white female with known tracheomalacia. We have seen her in the past for hoarseness also. She also has a history of a vocal cord dysfunction with paradoxical vocal cord movement. She was admitted 2 days ago for shortness of breath with tracheomalacia and COPD exacerbation. She has been seen by Pulmonary and is on IV antibiotics and steroids and has improved over the last 2 days including with her voice, which was much more hoarse when she arrived. She is having no respiratory distress, but does still have some hoarseness. She denies sore throat. She does have cough. She is maintained on Mucinex at home but is not on this presently. She has been coughing up some thick yellow mucus. She feels that overall she is better than when she arrived. PAST MEDICAL HISTORY: Is positive for asthma, heart failure, COPD, TIA, GERD, hypertension, sleep apnea, thyroid disorder, tracheomalacia, paradoxical vocal cord movement, episodic dysphonia, obstructive sleep apnea, CHF, tachycardia. PAST SURGICAL HISTORY: Includes cholecystectomy, heart catheterization, orthopedic surgery, tubal ligation, uterine ablation, bilateral knee surgery, neck cyst excision, bowel resection and bronchoscopy. SOCIAL HISTORY: Does not smoke or drink alcohol. FAMILY HISTORY: Positive for cancer, heart disease. MEDICATIONS: At home, albuterol, vitamins C, epinephrine as needed, Pepcid, zinc, nystatin, magnesium oxide, Lasix, Klor-Con, Xanax, Dulera, Zyrtec, Singulair, Synthroid, Lopressor, nystatin, Bentyl, Lomotil, ipratropium and albuterol inhaler. ALLERGIES: ALLERGIES TO AMINOGLYCOSIDES, HONEY, AVELOX, PEANUTS, ZITHROMAX, CLINDAMYCIN, LEVAQUIN, NEOMYCIN, XOLAIR, BACTRIM. REVIEW OF SYSTEMS: CONSTITUTIONAL: Denies fever or chills. EYES: Denies blurred vision or decreased vision. EARS: Denies decreased hearing, ear discharge. NOSE, MOUTH AND THROAT: Does report hoarseness, although improving. BREAST: Denies pain. CARDIOVASCULAR has decreased exercise tolerance and dyspnea on exertion. RESPIRATORY: Cough, dyspnea, sputum production, wheezing. GI: No abdominal pain or bloating. : Denies burning with urination. MUSCULOSKELETAL reports as per the HPI. INTEGUMENT no rashes. NEUROLOGIC: No focal numbness or tingling. ENDOCRINE: No symptoms of hypothyroidism or diabetes. HEMATOLOGIC/LYMPHATIC no enlarged adenopathy. PHYSICAL EXAM: The patient is afebrile. Vital signs overall stable. Oxygen saturation most recently 91% on 2 L, although she does not have her nasal cannula oxygen on presently and is in no distress. GENERAL: Well-developed adult white female, no acute distress, although does have hoarseness, moderate and mild expiratory wheeze. HEENT: Head normocephalic and atraumatic. Ears bilaterally canals clear. Membranes unremarkable, mobile. Nose shows some dryness and crusting anteriorly with minimal purulence posteriorly in the nasal cavities. Mouth and throat, oral cavity is unremarkable. Hypopharynx and larynx exam with flexible laryngoscopy shows mild diffuse erythema and edema of the larynx with good overall airway. Good visualized vocal cords with normal vocal cord mobility. NECK: Supple without adenopathy or tenderness. ASSESSMENT: 1. Acute laryngitis. 2. Acute sinusitis. 3. Tracheomalacia. 4. Exacerbation of chronic obstructive pulmonary disease/bronchitis. PLAN: The patient does not appear to have any obstructive issues above the vocal cords. Would continue her present management. I will add guaifenesin as she does generally take this at home and that helps her secretions as far as trying to clear them. If there are questions or concerns, otherwise, please feel free to contact me. BRITNI / NGUYEN: [id number] /
--- NOTE | 2019-10-01 20:52 | PCN ---
PROCEDURE NOTE PREOP DIAGNOSES: Hoarseness with tracheomalacia. POSTOP DIAGNOSES: Hoarseness with tracheomalacia. PROCEDURE PERFORMED: Flexible laryngoscopy. ANESTHESIA: None. COMPLICATIONS: None. BLOOD LOSS: None. PROCEDURE DETAILS: The patient was in her hospital bed and informed consent was obtained. Flexible laryngoscopy performed through the right nasal cavity with systematic evaluation of the right nasal cavity, nasopharynx, oropharynx, hypopharynx and larynx with the findings noted in her consult note. No obstructive issues, particularly above the vocal cord level. The patient tolerated the procedure well with no complications. MMODL / IJN: [id number] /
[2019-10-01] MEDS: HYDROcodone/APAP 5-325MG 1 EACH TAB PO PRN (21:32)
[2019-10-01] MEDS: guaiFENesin 600 MG TABLET.ER PO SCH (21:34)
[2019-10-01] MEDS: MONTELUKAST 10 MG TAB PO SCH (21:34)
[2019-10-02] MEDS: DEXAMETHASONE SOD PHOSPHATE 4 MG/ML 1 ML VIAL IV SCH ×5 (00:18→23:58)
[2019-10-02] MEDS: AMPICILLIN-SULBACTAM 3 GM in SODIUM CHLORIDE 0.9% 100 ML IVPB SCH ×5 (00:18→23:57)
[2019-10-02] MEDS: IPRATROPIUM-ALBUTEROL 3 ML NEB INHALATION SCH ×5 (03:19→19:54)
[2019-10-02] MEDS: LEVOTHYROXINE 50 MCG TAB PO SCH (06:24)
[2019-10-02] MEDS: guaiFENesin 600 MG TABLET.ER PO SCH ×2 (09:12→19:57)
[2019-10-02] MEDS: FUROSEMIDE 40 MG TAB PO SCH ×2 (09:12→15:22)
[2019-10-02] MEDS: HEPARIN SODIUM,PORCINE 5,000 UNIT/ML 1 ML VIAL SQ SCH ×2 (09:12→19:58)
[2019-10-02] MEDS: METOPROLOL TARTRATE 25 MG TAB PO SCH ×2 (09:12→19:57)
[2019-10-02] MEDS: FAMOTIDINE 20 MG TAB PO SCH ×2 (09:12→19:57)
[2019-10-02] MEDS: LORATADINE 10 MG TAB PO SCH (09:13)
[2019-10-02] MEDS: LORazepam 2 MG/ML INJ IV SCH ×2 (09:46→19:58)
--- NOTE | 2019-10-02 10:18 | P.PN ---
Subjective Progress Note Date: 10/02/19 58-year-old female patient, very well-known to me, known history of severe tracheal bronchomalacia and asthma in addition to history of paradoxic vocal cord activity/morning, obstructive sleep apnea, and history of recurrent dysphonia, came into the hospital because of increased cough and shortness of br eath and nausea breathing. It was felt that the patient was having some stridor. Apparently the patient was taking care of her grandkids and some of her grandkids were sick with respiratory illnesses. Subsequently she became ill and she felt her throat was also swelling and was tight. X-ray of the neck was done and showed some limited narrowing of the subglottic trachea. Nevertheless, clinically the patient was able to speak in full sentences and talk without any major difficulties. Her voice was quite hoarse and she was bringing up yellowish sputum. No painful swallow. No drooling. No reported fever or chills. No palpitation. No chest pain. No nausea. No vomiting. Chest exit s howed cardiomegaly. no other acute abnormalities were noted. The patient was admitted to the hospital. The patient is currently receiving albuterol and ipratropium nebulized treatments 4 times a day, IV Unasyn, Decadron 4 mg every 6 hours. She is already feeling better. on 10/01/2019 the patient is still having difficulties with her throat, noisy breathing, questionable stridorous inhalation and diffuse inspiratory next 30 wheezes throughout the lung raphael bilaterally. Rest or secretions have subsided. Influenza screen was negative. Rapid strep screen was negative. Pro-calcitonin level was at 0.1. She is afebrile. No leukocytosis. Is on Decadron. She is on Unasyn. I think it's paradoxic vocal cord dysfunction/mobility. I think it's worthwhile to have an ENT evaluation rega rding these findings. On 10/02/2019 I'm seeing the patient for a follow-up. Clinically somewhat im proved compared to yesterday. She remains a bit hoarse. She has a upper airway evaluation yesterday by ENT. The patient was not found to have any significant obstruction above the vocal cords. She was diagnosed having an acute laryngitis and acute sinusitis. And as noted earlier she has severe tracheal bronchomalacia. She is still cough and no thick yellowish mucus. She remains on IV Unasyn. No fever. No chills. She is on bronchodilators and systemic steroids. Objective - Vital Signs Vital signs: Vital Signs Temp 97.8 F 10/02/19 05:35 Pulse 68 10/02/19 07:46 Resp 16 10/02/19 05:35 BP 161/89 10/02/19 05:35 Pulse Ox 94 L 10/02/19 05:35 Intake & Output 10/01/19 10/02/19 10/02/19 18:59 06:59 18:59 Intake Total 260 480 Balance 260 480 Intake: Intake, IV Titration 260 Amount Ampicillin-Sulbactam 3 gm 100 In Sodium Chloride 0.9% 100 ml @ 200 mls/hr IVPB Q6HR [facility] Rx#:[id number] Sodium Chloride 0.9% 1, 160 000 ml @ 20 mls/hr IV . Q24H [facility] Rx#:[id number] Oral 480 Other: # Voids 3 2 # Bowel Movements 1 - Exam obese, comfortable lUncomfortable and the patient is not in acute respiratory distress Head exam was generally normal. There was no scleral icterus or corneal arcus. Mucous membranes were moist. Neck was supple and without jugular venous distension, thyromegaly, or carotid bruits. Carotids were easily palpable bilaterally. There was no adenopathy. Lungs sounds are diminished and the patient has scattered expiratory wheezes throughout lung his bilaterally. There is prolongation of expiration phase of breathing. Cardiac exam revealed the PMI to be normally situated and sized. The rhythm was regular and no extrasystoles were noted during several minutes of auscultation. The first and second heart sounds were normal and physiologic splitting of the second heart sound was noted. There were no murmurs, rubs, clicks, or gallops. Abdominal exam revealed normal bowel sounds. The abdomen was soft, non-tender, and without masses, organomegaly, or appreciable enlargement of the abdominal aorta. Examination of the extremities revealed easily palpable radial, femoral and pedal pulses. There was no cyanosis, clubbing or edema. Examination of the skin revealed no evidence of significant rashes, suspicious appearing nevi or other concerning lesions. Neurologically awake and alert and there is no focal neurological deficit. - Labs CBC & Chem 7: 09/29/19 09:07 09/30/19 06:55 Labs: Microbiology - Last 24 Hours (Table) 12/15/19 09:04 Group A Strep Throat Culture - Final Throat Assessment and Plan Plan: 1 acute bronchitis exacerbating the patient's chronic obstructive lung disease/asthma. There is also a component of laryngitis and possibly component of sinusitis. The patient is clinically improving slowly. 2 severe tracheal bronchomalacia 3 chronic hoarseness with episodic dysphonia, questionable stridor which I attribute to paradoxic vocal cord function . ENT evaluation was done and the patient was not found to have any upper airway obstruction. 4 obstructive sleep apnea. 5 severe persistent bronchial asthma 6 CHF with history of systolic and diastolic heart failure with an ejection fraction 45% currently inactive in stable 7 hypothyroidism 8 hypertension 9 previous history of DVT of the left lower extremity treated and currently the patient is known to coagulation 10 history of TIA Plan continue current treatment. Clinically improved. I'm going to send another culture from the sputum samples that are being expectorated. Continue antibiotics. Continue steroids. Possible home with the next 24-48 hours depending on her overall condition.
--- NOTE | 2019-10-02 11:17 | P.PN ---
Subjective Progress Note Date: 10/02/19 patient seen and examined follow-up doing much better today. Her hoarseness has improved considerably, patient had a flexible laryngoscopy performed by ENTit was consistent with acute pharyngitis and sinusitis without any noticeable obstructionabove the vocal cords. Patient continues to cough having thick yellow sputum. No acute events overnight Objective - Vital Signs Vital signs: Vital Signs Temp 97.8 F 10/02/19 05:35 Pulse 68 10/02/19 07:46 Resp 16 10/02/19 05:35 BP 161/89 10/02/19 05:35 Pulse Ox 94 L 10/02/19 05:35 Intake & Output 10/01/19 10/02/19 10/02/19 18:59 06:59 18:59 Intake Total 260 480 Balance 260 480 Intake: Intake, IV Titration 260 Amount Ampicillin-Sulbactam 3 gm 100 In Sodium Chloride 0.9% 100 ml @ 200 mls/hr IVPB Q6HR [facility] Rx#:[id number] Sodium Chloride 0.9% 1, 160 000 ml @ 20 mls/hr IV . Q24H [facility] Rx#:[id number] Oral 480 Other: # Voids 3 2 # Bowel Movements 1 - Exam Constitutional: No acute distress, conversant, pleasant Eyes: Anicteric sclerae, moist conjunctiva, no lid-lag, PERRLA ENMT: NC/AT,Oropharynx clear, no erythema, exudates Neck:Supple, FROM, no masses, or JVD, No carotid bruits; No thyromegaly Lungs: improved aeration and improved diffuse wheezes, diminished in the bases, unlabored on 2 L via nasal cannula Cardiovascular: Heart regular in rate and rhythm, No murmurs, gallops, or rubs no peripheral edema Abdominal: Soft Nontender, nom distended, no guarding, no rebound or rigidity, Normoactive bowel sounds No hepatomegaly, No splenomegaly, No palpable mass No abdominal wall hernia noted Skin: Normal temperature, tone, texture, turgor, No induration No subcutaneous nodules, No rash, lesions, No ulcers Extremities:No digital cyanosis No clubbing, Pedal pulses intact and symmetrical Radial pulses intact and symmetrical Normal gait and station, No calf tenderness Psychiatric: Alert and oriented to person, place and time, Appropriate affect Intact judgement Neuro: Muscles Strength 5/5 in all 4 extremities, Sensation to light touch grossly present throughout, Cranial nerves II-XII grossly intact. No focal sensory deficits - Labs CBC & Chem 7: 09/29/19 09:07 09/30/19 06:55 Labs: Microbiology - Last 24 Hours (Table) 09/29/19 09:04 Group A Strep Throat Culture - Final Throat Assessment and Plan Assessment: acute COPD exacerbation in the setting of tracheomalacia Acute tracheobronchitis * continue IV steroids with Decadron, continue bronchodilator DuoNeb A/A breathing treatments scheduled and PRN * patient initiated on IV antibiotics with Unasyn by pulmonary * Appreciate pulmonary recommendations acute sinusitis/laryngitis * continued on Unasyn * Appreciate ENT recommendations * As noted no obstruction noticed above the vocal cords Acute kidney injury * mild resolved with hydration History of TIA History of DVT in the left lower extremity Hypertension * blood pressure stable and controlled continue current regimen hoarseness * secondary to acute laryngitis in the setting of history of vocal cord dysfunction with paradoxical vocal cord movement chronic combined systolic and diastolic CHF with EF 45-50% * clinically euvolemic continue Lasix 40 mg PO BID and metoprolol 75 mg PO BID disposition * Continue current treatment plan anticipated discharge tomorrow
[2019-10-02] MEDS: CALCIUM CARB-VIT D 500MG-200UN 1 EACH TAB PO SCH (11:22)
[2019-10-02] MEDS: CHOLECALCIFEROL 1,000 UNIT TAB PO SCH (11:22)
[2019-10-02] MEDS: MAGNESIUM OXIDE 400 MG TAB PO SCH (11:22)
[2019-10-02] MEDS: ASCORBIC ACID 500 MG TAB PO SCH (11:22)
[2019-10-02 15:06] VITALS: RESP 20
[2019-10-02] MEDS: SODIUM CHLORIDE 0.9% 1,000 ML IV SCH (15:22)
[2019-10-02] MEDS: MONTELUKAST 10 MG TAB PO SCH (19:57)
[2019-10-03] MEDS: IPRATROPIUM-ALBUTEROL 3 ML NEB INHALATION SCH ×5 (01:09→16:01)
[2019-10-03 05:29] VITALS: BP 160/95; TEMP 98
[2019-10-03] MEDS: DEXAMETHASONE SOD PHOSPHATE 4 MG/ML 1 ML VIAL IV SCH ×2 (05:59→12:37)
[2019-10-03] MEDS: AMPICILLIN-SULBACTAM 3 GM in SODIUM CHLORIDE 0.9% 100 ML IVPB SCH ×2 (05:59→12:37)
[2019-10-03] MEDS: FUROSEMIDE 40 MG TAB PO SCH (05:59)
[2019-10-03] MEDS: LEVOTHYROXINE 50 MCG TAB PO SCH (05:59)
[2019-10-03] MEDS: LORATADINE 10 MG TAB PO SCH (08:04)
[2019-10-03] MEDS: CHOLECALCIFEROL 1,000 UNIT TAB PO SCH (08:04)
[2019-10-03] MEDS: CALCIUM CARB-VIT D 500MG-200UN 1 EACH TAB PO SCH (08:05)
[2019-10-03] MEDS: guaiFENesin 600 MG TABLET.ER PO SCH (08:05)
[2019-10-03] MEDS: MAGNESIUM OXIDE 400 MG TAB PO SCH (08:05)
[2019-10-03] MEDS: ASCORBIC ACID 500 MG TAB PO SCH (08:05)
[2019-10-03] MEDS: HEPARIN SODIUM,PORCINE 5,000 UNIT/ML 1 ML VIAL SQ SCH (08:05)
[2019-10-03] MEDS: FAMOTIDINE 20 MG TAB PO SCH (08:05)
[2019-10-03] MEDS: METOPROLOL TARTRATE 25 MG TAB PO SCH (08:05)
[2019-10-03] MEDS: LORazepam 2 MG/ML INJ IV SCH (08:25)
[2019-10-03] MEDS ORDERED: POTASSIUM CHLORIDE ER 20 MEQ TAB.ER PO SCH (09:00)
[2019-10-03 12:06] VITALS: PULSE 74
[2019-10-03] MEDS: SODIUM CHLORIDE 0.9% 1,000 ML IV SCH (12:37)
--- NOTE | 2019-10-03 13:55 | P.PN ---
Subjective Progress Note Date: 10/03/19 Principal diagnosis: Acute bronchitis, sinusitis, chronic hoarseness with episodic dysphonia 58-year-old female patient, very well-known to me, known history of severe tracheal bronchomalacia and asthma in addition to history of paradoxic vocal cord activity/morning, obstructive sleep apnea, and history of recurrent dysphonia, came into the hospital because of increased cough and shortness of breath and nausea breathing. It was felt that the patient was having some stridor. Apparently the patient was taking care of her grandkids and some of her grandkids were sick with respiratory illnesses. Subsequently she became ill and she felt her throat was also swelling and was tight. X-ray of the neck was done and showed some limited narrowing of the subglottic trachea. Nevertheless, clinically the patient was able to speak in full sentences and talk without any major difficulties. Her voice was quite hoarse and she was bringing up yellowish sputum. No painful swallow. No drooling. No reported fever or chills. No palpitation. No chest pain. No nausea. No vomiting. Chest exit showed cardiomegaly. no other acute abnormalities were noted. The patient was admitted to the hospital. The patient is currently receiving albuterol and ipratropium nebulized treatments 4 times a day, IV Unasyn, Decadron 4 mg every 6 hours. She is already feeling better. on 10/01/2019 the patient is still having difficulties with her throat, noisy breathing, questionable stridorous inhalation and diffuse inspiratory next 30 wheezes throughout the lung raphael bilaterally. Rest or secretions have subsided. Influenza screen was negative. Rapid strep screen was negative. Pro-calcitonin level was at 0.1. She is afebrile. No leukocytosis. Is on Decadron. She is on Unasyn. I think it's paradoxic vocal cord dysfunction/mobility. I think it's worthwhile to have an ENT evaluation regarding these findings. On 10/02/2019 I'm seeing the patient for a follow-up. Clinically somewhat improved compared to yesterday. She remains a bit hoarse. She has a upper airway evaluation yesterday by ENT. The patient was not found to have any significant obstruction above the vocal cords. She was diagnosed having an acute laryngitis and acute sinusitis. And as noted earlier she has severe tracheal bronchomalacia. She is still cough and no thick yellowish mucus. She remains on IV Unasyn. No fever. No chills. She is on bronchodilators and systemic steroids. On 10/03/2019 patient seen in follow-up on medical surgical floor. Doing better, breathing easier, still has a congested cough, with production of small amount of applications support lead colored greenish colored phlegm, no fever or chills, patient is satting 95% on room air, lung sounds with minimal wheezing and a few scattered rhonchi, overall less congested and bronchospastic, improving. She was treated with ampicillin, steroids, nebulized bronchodilators, she is being discharged home today Objective - Vital Signs Vital signs: Vital Signs Temp 98 F 10/03/19 05:28 Pulse 74 10/03/19 12:06 Resp 20 10/03/19 05:28 BP 160/95 10/03/19 05:28 Pulse Ox 95 10/03/19 05:28 Intake & Output 10/02/19 10/03/19 10/03/19 18:59 06:59 18:59 Intake Total 720 100 Balance 720 100 Intake: Oral 720 100 Other: # Voids 2 2 # Bowel Movements 0 - Exam GENERAL EXAM: Alert, very pleasant, obese 58-year-old white female, on 2 L of oxygen comfortable in no apparent distress. HEAD: Normocephalic/atraumatic. EYES: Normal reaction of pupils, equal size. Conjunctiva pink, sclera white. NOSE: Clear with pink turbinates. THROAT: No erythema or exudates. NECK: No masses, no JVD, no thyroid enlargement, no adenopathy. CHEST: No chest wall deformity. Symmetrical expansion. LUNGS: Equal air entry with few scattered wheezes, and rhonchi CVS: Regular rate and rhythm, normal S1 and S2, no gallops, no murmurs, no rubs ABDOMEN: Soft, nontender. No hepatosplenomegaly, normal bowel sounds, no guarding or rigidity. EXTREMITIES: No clubbing, no edema, no cyanosis, 2+ pulses and upper and lower extremities. MUSCULOSKELETAL: Muscle strength and tone normal. SPINE: No scoliosis or deformity SKIN: No rashes CENTRAL NERVOUS SYSTEM: Alert and oriented -3. No focal deficits, tone is normal in all 4 extremities. PSYCHIATRIC: Alert and oriented -3. Appropriate affect. Intact judgment and insight. - Labs CBC & Chem 7: 09/29/19 09:07 09/30/19 06:55 Assessment and Plan Plan: Assessment: 1 acute bronchitis exacerbating the patient's chronic obstructive lung disease/asthma. There is also a component of laryngitis and possibly component of sinusitis. The patient is clinically improving slowly. 2 severe tracheal bronchomalacia 3 chronic hoarseness with episodic dysphonia, questionable stridor which I attribute to paradoxic vocal cord function . ENT evaluation was done and the p atient was not found to have any upper airway obstruction. 4 obstructive sleep apnea. 5 severe persistent bronchial asthma 6 CHF with history of systolic and diastolic heart failure with an ejection fraction 45% currently inactive in stable 7 hypothyroidism 8 hypertension 9 previous history of DVT of the left lower extremity treated and currently the patient is known to coagulation 10 history of TIA Plan: Patient is doing well, vital signs are stable, no fever, no chills, patient was treated with a combination of empiric antibiotics, IV steroids, breathing treatments, likely improved, less congestive bronchospastic, grew paced strep throat culture was negative. Patient is clinically stable, she is being considered for discharge home today she can finish outpatient course of oral Augmentin. Patient can resume her Dulera, Singulair, and nebulized treatments, she'll follow-up in the office with Dr. Feng in 1-2 weeks I performed a history & physical examination of the patient and discussed their management with my nurse practitioner, Barbara Villagran. I reviewed the nurse practitioner's note and agree with the documented findings and plan of care. Lung sounds are positive for minimal scattered wheezing throughout the lung raphael. The findings and the impression was discussed with the patient. I attest to the documentation by the nurse practitioner. Time with Patient: Less than 30
--- NOTE | 2019-10-03 18:39 | P.DS ---
Providers Date of admission: 09/30/19 16:05 Expected date of discharge: 10/03/19 Attending physician: Choco Jimenez MD Consults: 09/29/19 11:46 Consult Physician Routine Consulting Provider: Nadeen Feng Consult Reason/Comments: tracheomalacia Do you want consulting provider notified?: Yes 10/01/19 12:29 Consult Physician ONCE Consulting Provider: Irineo Partida Consult Reason/Comments: hoarseness possible vocal cord dysfunction Do you want consulting provider notified?: Yes Primary care physician: [facility] Course: discharge diagnosis Acute COPD exacerbation Acute tracheobronchitis Acute laryngitis Acute sinusitis Tracheomalacia Acute kidney injury Essential hypertension Chronic combined systolic and diastolic CHF History of TIA History of DVT hospital course the patient is a 58-year-old female with a history of tracheomalacia, Obstructive sleep apnea, recurrent dysphonia that presented with increased shortness of breath and cough and was admitted for acute COPD exacerbation, she also complained of swelling in her throat neck with some tightness. X-rays of the neck showed some limited narrowing of the subglottic trachea. The patient was started on IV antibiotics with Unasyn and IV steroids with Decadron, she was also initiated on albuterol Atrovent bronchodilator DuoNeb breathing treatments Q 4/ PRN and was seen by pulmonary. workup including influenza rapid strep and probe calcitonin were negative. there was some suspicion for vocal cord dysfunction this mobility and ENT was consulted. the patient was seen by Dr. Blackburn and A flexible laryngoscopy was performed that was consistent with acute pharyngitis and sinusitis without any noticeable obstruction above the vocal cords. the patient was also noted to be in acute kidney injury on presentation that was mild that was resolved with IV fluids. With treatment the patient gradually improved and she was absolutely last bronchospastic and less congested and only had minimal wheezing and a few scattered rhonchi on discharge. she was subsequently discharged home in stable condition. This discharge process took approximately 35 minutes Focused exam Respiratory: Scattered wheezes, last bronchospastic, unlabored on room air Patient Condition at Discharge: Good Plan - Discharge Summary New Discharge Prescriptions: New guaiFENesin [Mucinex] 600 mg PO Q12HR #14 tablet.er Amoxic-Pot Clav 875-125Mg [Augmentin 875-125] 1 tab PO Q12HR #14 tablet Continue EPINEPHrine (Auto Inject) [Epipen] 0.3 mg IM ONCE PRN PRN Reason: Anaphylaxis Ascorbic Acid [Vitamin C] 500 mg PO DAILY Albuterol Sulfate [Proair Hfa] 1 - 2 puff INHALATION RT-Q4H PRN PRN Reason: Shortness Of Breath Famotidine [Pepcid] 20 mg PO BID Zinc 50 mg PO DAILY Nystatin [Nystop] 1 applic TOPICAL Q12H PRN PRN Reason: Rash Calcium Carbonate/Vitamin D3 [Calcium 600-Vit D3 400 Tablet] 1 tab PO DAILY Magnesium Oxide [Mag-Ox] 250 mg PO DAILY Potassium Chloride [Klor-Con 20] 20 meq PO DAILY Furosemide [Lasix] 40 mg PO BID@0700,1500 ALPRAZolam [Xanax] 0.5 mg PO Q8H #90 tablet Mometasone/Formoterol [Dulera 200 Mcg/5 Mcg Inhaler] 2 puff INHALATION RT-BID Montelukast [Singulair] 10 mg PO HS Cetirizine HCl [Zyrtec] 10 mg PO DAILY Levothyroxine Sodium [Synthroid] 50 mcg PO DAILY Nystatin 100,000 Unit/ml Susp [Mycostatin Oral Susp] 5 ml PO QID PRN PRN Reason: THRUSH Metoprolol Tartrate [Lopressor] 75 mg PO BID Cholecalciferol [Vitamin D3 (25 Mcg = 1000 Iu)] 5,000 unit PO DAILY L.acidoph,Paracasei, B.lactis [Probiotic] 1 cap PO DAILY Diphenox-Atrop 2.5-0.025 mg [Lomotil] 1 tab PO QID PRN PRN Reason: Diarrhea Dicyclomine [Bentyl] 20 mg PO TID PRN PRN Reason: IBS Ipratropium-Albuterol Nebulize [Duoneb 0.5 mg-3 mg/3 ml Soln] 3 ml INHALATION RT-QID PRN PRN Reason: Shortness Of Breath Discharge Medication List Albuterol Sulfate [Proair Hfa] 1 - 2 puff INHALATION RT-Q4H PRN 04/11/14 [History] Ascorbic Acid [Vitamin C] 500 mg PO DAILY 04/11/14 [History] EPINEPHrine (Auto Inject) [Epipen] 0.3 mg IM ONCE PRN 06/27/14 [History] Famotidine [Pepcid] 20 mg PO BID 04/11/14 [History] Zinc 50 mg PO DAILY 04/11/14 [History] Calcium Carbonate/Vitamin D3 [Calcium 600-Vit D3 400 Tablet] 1 tab PO DAILY 12/08/14 [History] Nystatin [Nystop] 1 applic TOPICAL Q12H PRN 12/08/14 [History] Magnesium Oxide [Mag-Ox] 250 mg PO DAILY 12/18/14 [History] Furosemide [Lasix] 40 mg PO BID@0700,1500 04/22/15 [History] Potassium Chloride [Klor-Con 20] 20 meq PO DAILY 04/22/15 [History] ALPRAZolam [Xanax] 0.5 mg PO Q8H #90 tablet 05/11/15 [Rx] Mometasone/Formoterol [Dulera 200 Mcg/5 Mcg Inhaler] 2 puff INHALATION RT-BID 09/12/15 [History] Cetirizine HCl [Zyrtec] 10 mg PO DAILY 12/21/15 [History] Montelukast [Singulair] 10 mg PO HS 12/21/15 [History] Levothyroxine Sodium [Synthroid] 50 mcg PO DAILY 03/03/16 [History] Metoprolol Tartrate [Lopressor] 75 mg PO BID 01/09/17 [History] Nystatin 100,000 Unit/ml Susp [Mycostatin Oral Susp] 5 ml PO QID PRN 01/09/17 [History] Cholecalciferol [Vitamin D3 (25 Mcg = 1000 Iu)] 5,000 unit PO DAILY 09/10/17 [History] L.acidoph,Paracasei, B.lactis [Probiotic] 1 cap PO DAILY 09/10/17 [History] Dicyclomine [Bentyl] 20 mg PO TID PRN 12/15/18 [History] Diphenox-Atrop 2.5-0.025 mg [Lomotil] 1 tab PO QID PRN 12/15/18 [History] Ipratropium-Albuterol Nebulize [Duoneb 0.5 mg-3 mg/3 ml Soln] 3 ml INHALATION RT-QID PRN 12/15/18 [History] Amoxic-Pot Clav 875-125Mg [Augmentin 875-125] 1 tab PO Q12HR #14 tablet 10/03/19 [Rx] guaiFENesin [Mucinex] 600 mg PO Q12HR #14 tablet.er 10/03/19 [Rx] Follow up Appointment(s)/Referral(s): Russell Hinson MD [Primary Care Provider] - 1-2 days (pt said she neville make appt) Nadeen Feng MD [STAFF PHYSICIAN] - 1 Week Patient Instructions/Handouts: Heart Failure (DC), COPD (Chronic Obstructive Pulmonary Disease) (DC) Discharge Disposition: HOME SELF-CARE
== END 2019-10-03 16:18 | disposition home or self-care (01) | DRG 191 ==
LOC: EC 08:42 → 6NMEDSUR 12:14 → OBSVTOIN 09-30 16:05
PROVIDERS: ADMIT Family Medicine; ATTEND Family Medicine
PROC: 0CJS8ZZ Inspection of Larynx, Via Natural or Artificial Opening Endoscopic (ICD-10-PCS; principal; 2019-10-01)
DX: J44.1 Chronic obstructive pulmonary disease with (acute) exacerbation (principal); I50.42 Chronic combined systolic (congestive) and diastolic (congestive) heart failure; N17.9 Acute kidney failure, unspecified; J44.0 Chronic obstructive pulmonary disease with (acute) lower respiratory infection; J20.9 Acute bronchitis, unspecified; J04.0 Acute laryngitis; M41.9 Scoliosis, unspecified; J02.9 Acute pharyngitis, unspecified; E86.0 Dehydration; E03.9 Hypothyroidism, unspecified; F41.9 Anxiety disorder, unspecified; G47.33 Obstructive sleep apnea (adult) (pediatric); I11.0 Hypertensive heart disease with heart failure; J01.90 Acute sinusitis, unspecified; Z79.51 Long term (current) use of inhaled steroids; Z79.899 Other long term (current) drug therapy; Z79.890 Hormone replacement therapy; Z82.49 Family history of ischemic heart disease and other diseases of the circulatory system; Z80.3 Family history of malignant neoplasm of breast; Z86.718 Personal history of other venous thrombosis and embolism; Z86.73 Personal history of transient ischemic attack (TIA), and cerebral infarction without residual deficits; Z99.89 Dependence on other enabling machines and devices; Z86.010 Personal history of colon polyps; Z86.19 Personal history of other infectious and parasitic diseases; Z90.49 Acquired absence of other specified parts of digestive tract; Z98.890 Other specified postprocedural states; Z88.1 Allergy status to other antibiotic agents; Z91.010 Allergy to peanuts; Z88.2 Allergy status to sulfonamides; Z88.8 Allergy status to other drugs, medicaments and biological substances; Z91.018 Allergy to other foods
CPT/HCPCS: 36415; 70360; 71045; 80048; 84145; 85025; 85610; 85730; 87081; 87430; 87502; 93005; 93306; 94640; 94760; 96361; 96374; 96375; 99285

== ENCOUNTER → 2020-08-28 | Outpatient (CLI) | payer OTHER ==
[2020-08-28 12:55] LABS: Basophils % (A) 0 %; Eosinophils # (A) 0.1 k/uL (0-0.7); Eosinophils % (A) 2 %; HCT 42.2 % (34.0-46.0); HGB 14.2 gm/dL (11.4-16.0); Lymphocytes # (A) 2.6 k/uL (1.0-4.8); Lymphocytes % (A) 30 %; MCH 30.9 pg (25.0-35.0); MCHC 33.6 g/dL (31.0-37.0); MCV 91.9 fL (80.0-100.0); Mean Platelet Volume 8.2; Monocytes # (A) 0.5 k/uL (0-1.0); Monocytes % (A) 6 %; Neutrophils # (A) 5.2 k/uL (1.3-7.7); Neutrophils % (A) 60 %; Platelet Count 230 k/uL (150-450); RBC 4.59 m/uL (3.80-5.40); RDW 14.1 % (11.5-15.5); WBC 8.6 k/uL (3.8-10.6)
[2020-08-28 21:00] LABS: African American GFR (CKD) 58.1 (60.0-200.0); Albumin 4.4 g/dL (3.80-4.90); Albumin/Globulin Ratio 1.91 (1.60-3.17); Anion Gap 6.9 mmol/L (4.00-12.00); BUN/Creat Ratio 17.5 Ratio (12.00-20.00); Calcium 9.5 mg/dL (8.7-10.3); Carbon Dioxide 31.1 mmol/L (21.6-31.8); Globulin 2.3 g/dL (1.6-3.3); Non-African American GFR(CKD) 50.1 (60.0-200.0); Potassium 4.3 mmol/L (3.5-5.5); Total Bilirubin 0.9 mg/dL (0.3-1.2); Total Protein 6.7 g/dL (6.2-8.2)
[2020-08-28 21:08] LABS: T4, Free (Free Thyroxine) 1.2 ng/dL (0.80-1.80)
[2020-08-28 21:18] LABS: Erythrocyte Sedimentation Rate 23 mm/Hr (0-30)
== END | disposition home or self-care (01) ==
LOC: LABWHC1 11:08
PROVIDERS: ATTEND Internal Medicine Critical Care Medicine
DX: E03.9 Hypothyroidism, unspecified (principal); J45.909 Unspecified asthma, uncomplicated
CPT/HCPCS: 36415; 80053; 84439; 84443; 85025; 85652

== ENCOUNTER → 2020-09-21 | Outpatient (CLI) | payer OTHER | END | disposition home or self-care (01) | LOC: LABWHC1 11:06 | PROVIDERS: ATTEND Nurse Practitioner Adult Health | DX: R05 Cough (principal); H10.31 Unspecified acute conjunctivitis, right eye | CPT/HCPCS: U0003; C9803 ==

== ENCOUNTER 2021-01-15 12:07 | Emergency (ER) | payer OTHER ==
[2021-01-15 12:25] VITALS: RESP 18
--- NOTE | 2021-01-15 12:59 | XR ---
EXAMINATION TYPE: XR chest 2V DATE OF EXAM: 01/15/2021 COMPARISON: 08/07/2020, 09/29/2019, 07/21/2017 HISTORY: 60 year-old female shortness of breath TECHNIQUE: PA and lateral views FINDINGS: Heart upper limits of normal in size. Aorta and pulmonary vasculature within normal limits. Left supr ahilar nodularity may have been present back on the 2017 exam. Short interval follow-up recommended t o exclude an underlying pulmonary nodule. Otherwise, no consolidation or pleural effusion. IMPRESSION: 1. No acute cardiopulmonary process. 2. Nodular left suprahilar density may have been present on the patient's 2017 exam. Findings could r epresent summation artifact. Recommend follow-up in 6-8 weeks to ensure stability and exclude a pulmo nary nodule.
[2021-01-15] MEDS ORDERED: ALBUTEROL HFA INHALER INHALATION STA (14:44)
[2021-01-15] MEDS ORDERED: dexAMETHasone 2 MG TAB PO STA (14:44)
[2021-01-15] MEDS ORDERED: IBUPROFEN 600 MG TAB PO STA (14:57)
[2021-01-15] MEDS ORDERED: ACETAMINOPHEN TAB 500 MG TAB PO STA (14:57)
--- NOTE | 2021-01-15 15:03 | ED ---
General Adult HPI - General Chief complaint: Shortness of Breath Stated complaint: Covid Symptoms Time Seen by Provider: 01/15/21 12:25 Source: patient, RN notes reviewed, old records reviewed Mode of arrival: wheelchair Limitations: no limitations - History of Present Illness Initial comments: This is a 60-year-old female presents emergency department stating that she received the first shot up to shot vaccine 2 weeks ago and yesterday she started having the chills and a fever. Patient states she is also mildly short of breath. Patient denies any loss of taste or smell. Patient denies any chest pain or palpitations. Patient denies abdominal pain patient denies nausea vomiting or diarrhea. - Related Data Home Medications Medication Instructions Recorded Confirmed Albuterol Sulfate [Proair Hfa] 1 - 2 puff INHALATION RT-Q4H PRN 04/11/14 09/29/19 Ascorbic Acid [Vitamin C] 500 mg PO DAILY 04/11/14 09/29/19 EPINEPHrine (Auto Inject) [Epipen] 0.3 mg IM ONCE PRN 04/11/14 09/29/19 Famotidine [Pepcid] 20 mg PO BID 04/11/14 09/29/19 Zinc 50 mg PO DAILY 04/11/14 09/29/19 Calcium Carbonate/Vitamin D3 1 tab PO DAILY 12/08/14 09/29/19 [Calcium 600-Vit D3 400 Tablet] Nystatin [Nystop] 1 applic TOPICAL Q12H PRN 12/08/14 09/29/19 Magnesium Oxide [Mag-Ox] 250 mg PO DAILY 12/18/14 09/29/19 Furosemide [Lasix] 40 mg PO BID@0700,1500 04/22/15 09/29/19 Potassium Chloride [Klor-Con 20] 20 meq PO DAILY 04/22/15 09/29/19 Mometasone/Formoterol [Dulera 200 2 puff INHALATION RT-BID 09/12/15 09/29/19 Mcg-5 Mcg Inhaler] Cetirizine HCl [Zyrtec] 10 mg PO DAILY 12/21/15 09/29/19 Montelukast [Singulair] 10 mg PO HS 12/21/15 09/29/19 Levothyroxine Sodium [Synthroid] 50 mcg PO DAILY 03/03/16 09/29/19 Metoprolol Tartrate [Lopressor] 75 mg PO BID 01/09/17 09/29/19 Nystatin 100,000 Unit/ml Susp 5 ml PO QID PRN 01/09/17 09/29/19 [Mycostatin Oral Susp] Cholecalciferol [Vitamin D3 (25 5,000 unit PO DAILY 09/10/17 09/29/19 Mcg = 1000 Iu)] L.acidoph,Paracasei, B.lactis 1 cap PO DAILY 09/10/17 09/29/19 [Probiotic] Dicyclomine [Bentyl] 20 mg PO TID PRN 12/15/18 09/29/19 Diphenox-Atrop 2.5-0.025 mg 1 tab PO QID PRN 12/15/18 09/29/19 [Lomotil] Ipratropium-Albuterol Nebulize 3 ml INHALATION RT-QID PRN 12/15/18 09/29/19 [Duoneb 0.5 mg-3 mg/3 ml Soln] Previous Rx's Medication Instructions Recorded ALPRAZolam [Xanax] 0.5 mg PO Q8H #90 tablet 05/11/15 Amoxic-Pot Clav 875-125Mg 1 tab PO Q12HR #14 tablet 10/03/19 [Augmentin 875-125] guaiFENesin [Mucinex] 600 mg PO Q12HR #14 tablet.er 10/03/19 Albuterol Inhaler [Ventolin Hfa 2 puff INHALATION QID #1 puff 01/15/21 Inhaler] Dexamethasone [Decadron] 6 mg PO DAILY #7 tablet 01/15/21 Allergies Allergy/AdvReac Type Severity Reaction Status Date / Time Aminoglycosides Allergy Unknown Verified 01/15/21 12:21 honey Allergy Anaphylaxis Verified 01/15/21 12:21 moxifloxacin HCl Allergy Unknown Verified 01/15/21 12:21 [From Avelox] peanut Allergy Anaphylaxis Verified 01/15/21 12:21 azithromycin [From Zithromax] AdvReac Nausea & Verified 01/15/21 12:21 Vomiting & Diarrhea clindamycin AdvReac Dyspnea Verified 01/15/21 12:21 levofloxacin [From Levaquin] AdvReac Dyspnea Verified 01/15/21 12:21 neomycin [Neomycin] AdvReac Dyspnea Verified 04/02/21 12:21 omalizumab [From Xolair] AdvReac Dyspnea Verified 01/15/21 12:21 sulfamethoxazole AdvReac Diarrhea/co Verified 01/15/21 12:21 [From Bactrim] litis trimethoprim [From Bactrim] AdvReac Diarrhea/co Verified 01/15/21 12:21 litis Review of Systems ROS Statement: Those systems with pertinent positive or pertinent negative responses have been documented in the HPI. ROS Other: All systems not noted in ROS Statement are negative. Past Medical History Past Medical History: Asthma, Heart Failure, COPD, CVA/TIA, GERD/Reflux, Hypertension, Sleep Apnea/CPAP/BIPAP, Thyroid Disorder Additional Past Medical History / Comment(s): Severe persistent bronchial asthma, severe tracheal bronchomalacia, paradoxic vocal cord function, episodic dysphonia, obstructive sleep apnea, obesity, CHF with systolic dysfunction and EF of 40-45%. TACHYCARDIA. SCOLIOSIS. vocal cord dysfunction, TIA., c -diff 04-22-15 History of Any Multi-Drug Resistant Organisms: C-DIFF Date of last positivie culture/infection: 04/22/15 MDRO Source:: stool Past Surgical History: Cholecystectomy, Heart Catheterization, Orthopedic Surgery, Tubal Ligation, Uterine Ablation Additional Past Surgical History / Comment(s): HEART CATH. BREAST BIOPSY-NEG. COLON POLYP - NEG. D&C. BILATERAL KNEE. NECK CYST. BOWEL RESECTION. VOCAL CORD. BRONCHOSCOPY 3-6-15 PER PT FOUND HERPES SIMPLES BLISTERS IN LUNGS. HAS HAD 15 BRONCHS.rt arm tendon sx Past Anesthesia/Blood Transfusion Reactions: Postoperative Nausea & Vomiting (PONV) Additional Past Anesthesia/Blood Transfusion Reaction / Comment(s): Pt has never recieved blood. Past Psychological History: Anxiety Smoking Status: Never smoker Past Alcohol Use History: None Reported Past Drug Use History: None Reported - Past Family History Father Family Medical History: Cancer, Congestive Heart Failure (CHF), CVA/TIA, Myocardial Infarction ([place]), Prostate Disorder Additional Family Medical History / Comment(s): at age 84- chocked on a hot dog Mother Family Medical History: Cancer, Osteoarthritis (OA) Additional Family Medical History / Comment(s): mom is 84 breast ca surviver. General Exam - General Exam Comments Initial Comments: GENERAL: Patient is well-developed and well-nourished. Patient is nontoxic and well- hydrated and is in mild distress. ENT: Neck is soft and supple. No significant lymphadenopathy is noted. Oropharynx is clear. Moist mucous membranes. Neck has full range of motion without eliciting any pain. EYES: The sclera were anicteric and conjunctiva were pink and moist. Extraocular movements were intact and pupils were equal round and reactive to light. Eyelids were unremarkable. PULMONARY: She has some expiratory wheezing CARDIOVASCULAR: There is a regular rate and rhythm without any murmurs gallops or rubs. ABDOMEN: Soft and nontender with normal bowel sounds. No palpable organomegaly was noted. There is no palpable pulsatile mass. SKIN: Skin is clear with no lesions or rashes and otherwise unremarkable. NEUROLOGIC: Patient is alert and oriented x3. Cranial nerves II through XII are grossly intact. Motor and sensory are also intact. Normal speech, volume and content. Symmetrical smile. MUSCULOSKELETAL: Normal extremities with adequate strength and full range of motion. No lower extremity swelling or edema. No calf tenderness. LYMPHATICS: No significant lymphadenopathy is noted PSYCHIATRIC: Normal psychiatric evaluation. Limitations: no limitations Course Vital Signs 01/15/21 12:21 Temperature 99 F Pulse Rate 98 Respiratory 18 Rate Blood Pressure 121/83 O2 Sat by Pulse 98 Oximetry Medical Decision Making - Medical Decision Making Patient is COVID positive. Chest x-ray shows no COVID pneumonia over there is a nodule in one the lungs. - Lab Data Lab Results 01/15/21 Range/Units 12:27 Coronavirus (PCR) Detected A (Not Detectd) Disposition Clinical Impression: COVID-19, Bronchospasm, Lung nodule Disposition: HOME SELF-CARE Instructions (If sedation given, give patient instructions): Coronavirus Disease 2019 (COVID-19) Prescriptions: Dexamethasone [Decadron] 6 mg PO DAILY #7 tablet Albuterol Inhaler [Ventolin Hfa Inhaler] 2 puff INHALATION QID #1 puff Is patient prescribed a controlled substance at d/c from ED?: No Referrals: Ramila Soliz NPC [Primary Care Provider] - 1-2 days Time of Disposition: 15:01
[2021-01-15] MEDS ORDERED: BAMLANIVIMAB (EUA) 700 MG, ETESEVIMAB (EUA) 1,400 MG in SODIUM CHLORIDE 0.9% 50 ML IVPB ONE (15:30)
[2021-01-15 17:26] VITALS: BP 123/77; PULSE 89; TEMP 99.8
== END 2021-01-15 17:26 | disposition home or self-care (01) ==
LOC: EC 12:07
DX: U07.1 COVID-19 (principal); I11.0 Hypertensive heart disease with heart failure; I50.20 Unspecified systolic (congestive) heart failure; J44.9 Chronic obstructive pulmonary disease, unspecified; K21.9 Gastro-esophageal reflux disease without esophagitis; E66.9 Obesity, unspecified; F41.9 Anxiety disorder, unspecified; G47.33 Obstructive sleep apnea (adult) (pediatric); Z79.51 Long term (current) use of inhaled steroids; Z86.73 Personal history of transient ischemic attack (TIA), and cerebral infarction without residual deficits; Z68.37 Body mass index [BMI] 37.0-37.9, adult
CPT/HCPCS: 94640; 87635; 71046; 99285; 96365; J8540; Q0245

== ENCOUNTER 2021-01-24 09:59 | Inpatient (IN) | payer BC, OTHER ==
[2021-01-24] MEDS ORDERED: LIDOCAINE VISCOUS 2% 15 ML CUP MUCOUS MEM ONE (10:11)
[2021-01-24] MEDS ORDERED: LIDOCAINE 4% (PF) 5 ML AMP MISCELLANE STA (10:13)
[2021-01-24] MEDS ORDERED: KETAMINE 10 MG/ML 20 ML VIAL IVPB STA (10:15)
[2021-01-24] MEDS ORDERED: DEXAMETHASONE SOD PHOSPHATE 10 MG/ML 1 ML VIAL IV STA (10:21)
--- NOTE | 2021-01-24 10:26 | ED ---
General Adult HPI - General Stated complaint: JOSE MANUEL Time Seen by Provider: 01/24/21 10:19 Source: patient Mode of arrival: ambulatory Limitations: no limitations - History of Present Illness Initial comments: Dictation was produced using [employer] dictation software. please excuse any grammatical, word or spelling errors. This patient was cared for during a federal and state declared state of emergency secondary to Covid 19 Chief Complaint: 60-year-old female arrives emergency department for stridor History of Present Illness: Patient is a 60-year-old female. She allegedly has a past medical history of tracheal, laryngeal malacia. She was brought by EMS for stridor. History of present illness was obtained from EMS. EMS reports that patient began having symptoms of noisy breathing over the last few hours. They rushed her to the emergency department. EMS placed patient on nonrebreather. Unable to obtain secondary to mental status. PHYSICAL EXAM: General Impression: Dyspnea, intercostal and super clavicular retractions, stridulous breathing HEENT: Normocephalic atraumatic, extra-ocular movements intact, pupils equal and reactive to light bilaterally, dry mucous membranes Cardiovascular: Heart regular rate and rhythm Chest: Severe retractions, bilateral breath sounds Abdomen: abdomen soft, non-tender, non-distended, no organomegaly Musculoskeletal: Pulses present and equal in all extremities, no peripheral edema Motor: no focal deficits noted Neurological: Moving all extremities grossly ED course: 60-year-old female presents emergency department for stridulous breathing. Patient is having noisy breathing with inspiratory stridor. She does have severe retractions. Patient placed on nonrebreather. Patient given 4% nebulized lidocaine. She was given viscous lidocaine to the posterior oropharynx. Patient given 90 mg of ketamine. Awake intubation was performed and successful using glideoscope. Patient tolerated procedure well. There did not appear to be significant narrowing at the level of the vocal cords. Anesthesia was at bedside for backup. Laboratory evaluation obtained. Mild leukocytosis of 15.2 lately secondary to stress. Coag panel is unremarkable. His blood gases acceptable. Patient's oxygen was weaned down. Metabolic panel is within acceptable limits. 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 EKG interpretation: Ventricular rate 89, normal sinus rhythm, RI interval 162, QRS 96, QTC 450. No RI prolongation, no QTC prolongation, no ST or T-wave changes noted. Overall, this EKG is unremarkable - Related Data Home Medications Medication Instructions Recorded Confirmed Albuterol Sulfate [Proair Hfa] 1 - 2 puff INHALATION RT-Q4H PRN 04/11/14 01/24/21 Ascorbic Acid [Vitamin C] 500 mg PO DAILY 04/11/14 01/24/21 EPINEPHrine (Auto Inject) [Epipen] 0.3 mg IM ONCE PRN 04/11/14 01/24/21 Zinc 50 mg PO DAILY 04/11/14 01/24/21 Magnesium Oxide [Mag-Ox] 250 mg PO DAILY 12/18/14 01/24/21 Furosemide [Lasix] 40 mg PO BID@0700,1500 04/22/15 01/24/21 Potassium Chloride [Klor-Con 20] 20 meq PO DAILY 04/22/15 01/24/21 Montelukast [Singulair] 10 mg PO HS 12/21/15 01/24/21 Levothyroxine Sodium [Synthroid] 50 mcg PO DAILY 03/03/16 01/24/21 Metoprolol Tartrate [Lopressor] 25 mg PO BID 01/09/17 01/24/21 Cholecalciferol [Vitamin D3 (25 5,000 unit PO DAILY 09/10/17 01/24/21 Mcg = 1000 Iu)] L.acidoph,Paracasei, B.lactis 1 cap PO DAILY 09/10/17 01/24/21 [Probiotic] Dicyclomine [Bentyl] 20 mg PO TID PRN 12/15/18 01/24/21 Diphenox-Atrop 2.5-0.025 mg 1 tab PO QID PRN 12/15/18 01/24/21 [Lomotil] Ipratropium-Albuterol Nebulize 3 ml INHALATION RT-QID PRN 12/15/18 01/24/21 [Duoneb 0.5 mg-3 mg/3 ml Soln] ALPRAZolam [Xanax] 0.5 mg PO TID PRN 01/15/21 01/24/21 Calcium Carbonate [Calcium] 600 mg PO DAILY 01/15/21 01/24/21 Famotidine [Pepcid] 40 mg PO HS 01/15/21 01/24/21 Fluticasone/Vilanterol [Breo 1 puff INHALATION RT-DAILY 01/15/21 01/24/21 Ellipta 200-25 Mcg INH] Tiotropium [place] [Spiriva 2 puff INHALATION RT-DAILY 01/24/21 01/24/21 Respimat] Previous Rx's Medication Instructions Recorded Albuterol Inhaler [Ventolin Hfa 2 puff INHALATION QID #1 puff 01/15/21 Inhaler] Dexamethasone [Decadron] 6 mg PO DAILY #7 tablet 01/15/21 Allergies Allergy/AdvReac Type Severity Reaction Status Date / Time Aminoglycosides Allergy Unknown Verified 01/24/21 10:19 honey Allergy Anaphylaxis Verified 01/24/21 10:19 moxifloxacin HCl Allergy Unknown Verified 01/24/21 10:19 [From Avelox] peanut Allergy Anaphylaxis Verified 01/24/21 10:19 azithromycin [From Zithromax] AdvReac Nausea & Verified 01/24/21 10:19 Vomiting & Diarrhea clindamycin AdvReac Dyspnea Verified 01/24/21 10:19 levofloxacin [From Levaquin] AdvReac Dyspnea Verified 01/24/21 10:19 neomycin [Neomycin] AdvReac Dyspnea Verified 01/24/21 10:19 omalizumab [From Xolair] AdvReac Dyspnea Verified 01/24/21 10:19 sulfamethoxazole AdvReac Diarrhea/co Verified 01/24/21 10:19 [From Bactrim] litis trimethoprim [From Bactrim] AdvReac Diarrhea/co Verified 01/24/21 10:19 litis Review of Systems ROS Statement: Those systems with pertinent positive or pertinent negative responses have been documented in the HPI. ROS Other: All systems not noted in ROS Statement are negative. Past Medical History Past Medical History: Asthma, Heart Failure, COPD, CVA/TIA, GERD/Reflux, Hypertension, Sleep Apnea/CPAP/BIPAP, Thyroid Disorder Additional Past Medical History / Comment(s): Severe persistent bronchial asthma, severe tracheal bronchomalacia, paradoxic vocal cord function, episodic dysphonia, obstructive sleep apnea, obesity, CHF with systolic dysfunction and EF of 40-45%. TACHYCARDIA. SCOLIOSIS. vocal cord dysfunction, TIA., c -diff History of Any Multi-Drug Resistant Organisms: C-DIFF Date of last positivie culture/infection: 04/22/15 MDRO Source:: stool Past Surgical History: Cholecystectomy, Heart Catheterization, Orthopedic Surgery, Tubal Ligation, Uterine Ablation Additional Past Surgical History / Comment(s): HEART CATH. BREAST BIOPSY-NEG. COLON POLYP - NEG. D&C. BILATERAL KNEE. NECK CYST. BOWEL RESECTION. VOCAL CORD. BRONCHOSCOPY 3-6-15 PER PT FOUND HERPES SIMPLES BLISTERS IN LUNGS. HAS HAD 15 BRONCHS.rt arm tendon sx Past Anesthesia/Blood Transfusion Reactions: Postoperative Nausea & Vomiting (PONV) Additional Past Anesthesia/Blood Transfusion Reaction / Comment(s): Pt has never recieved blood. Past Psychological History: Anxiety Smoking Status: Never smoker Past Alcohol Use History: None Reported Past Drug Use History: None Reported - Past Family History Father Family Medical History: Cancer, Congestive Heart Failure (CHF), CVA/TIA, Myocardial Infarction ([place]), Prostate Disorder Additional Family Medical History / Comment(s): at age 84- chocked on a hot dog Mother Family Medical History: Cancer, Osteoarthritis (OA) Additional Family Medical History / Comment(s): mom is 84 breast ca surviver. General Exam Limitations: no limitations Course Vital Signs 01/24/21 01/24/21 01/24/21 10:19 10:28 10:40 Temperature 98.1 F Pulse Rate 90 90 76 Respiratory 18 18 18 Rate Blood Pressure 143/99 158/111 O2 Sat by Pulse 99 100 100 Oximetry 01/24/21 01/24/21 11:41 11:48 Temperature Pulse Rate 74 66 Respiratory 18 18 Rate Blood Pressure 104/72 108/83 O2 Sat by Pulse 99 99 Oximetry Procedures - Intubation Sedative: Ketamine Mg Given: 90 Laryngoscope: fiber optic video scope Size: 3 Assist Device Used: fiber optic device ET Tube Size: 7.5 ET Tube Uncuffed: No Tube Secured Depth (cm): 23 Tube Secured Location: lips Tube Placement Confirmation: visualized tube passing through cords, equal breath sounds bilaterally, no breath sounds over epigastrium, confirmation by capnometry Patient Tolerated Procedure: well Intubation Complications: none Additional Comments: Awake intubation was performed. Patient was given nebulized 4% lidocaine, viscous lidocaine applied to the posterior oropharynx. paralytics were not utilized. Medical Decision Making - Lab Data Result diagrams: 01/24/21 10:24 01/24/21 10:24 Lab Results 01/24/21 01/24/21 01/24/21 Range/Units 10:24 10:24 10:24 WBC 15.2 H (3.8-10.6) k/uL RBC 4.91 (3.80-5.40) m/uL Hgb 15.2 (11.4-16.0) gm/dL Hct 43.2 (34.0-46.0) % MCV 88.0 (80.0-100.0) fL MCH 31.0 (25.0-35.0) pg MCHC 35.2 (31.0-37.0) g/dL RDW 13.2 (11.5-15.5) % Plt Count 272 (150-450) k/uL MPV 8.3 Neutrophils % 53 % Lymphocytes % 38 % Monocytes % 7 % Eosinophils % 1 % Basophils % 0 % Neutrophils # 8.0 H (1.3-7.7) k/uL Lymphocytes # 5.8 H (1.0-4.8) k/uL Monocytes # 1.0 (0-1.0) k/uL Eosinophils # 0.2 (0-0.7) k/uL Basophils # 0.1 (0-0.2) k/uL Manual Slide Review Performed RBC Morphology Normal PT 9.9 (9.0-12.0) sec INR 0.9 (<1.2) APTT 20.8 L (22.0-30.0) sec Sample Site ABG pH (7.35-7.45) ABG pCO2 (35-45) mmHg ABG pO2 (83-108) mmHg ABG HCO3 (21-25) mmol/L ABG Total CO2 (19-24) mmol/L ABG O2 Saturation (94-97) % ABG Base Excess mmol/L Joshua Test FiO2 % Sodium 139 (137-145) mmol/L Potassium 4.1 (3.5-5.1) mmol/L Chloride 100 (98-107) mmol/L Carbon Dioxide 33 H (22-30) mmol/L Anion Gap 6 mmol/L BUN 27 H (7-17) mg/dL Creatinine 1.22 H (0.52-1.04) mg/dL Est GFR (CKD-EPI)AfAm 57 (>60 ml/min/1.73 sqM) Est GFR (CKD-EPI)NonAf 49 (>60 ml/min/1.73 sqM) Glucose 83 (74-99) mg/dL Calcium 9.2 (8.4-10.2) mg/dL 01/24/21 Range/Units 11:38 WBC (3.8-10.6) k/uL RBC (3.80-5.40) m/uL Hgb (11.4-16.0) gm/dL Hct (34.0-46.0) % MCV (80.0-100.0) fL MCH (25.0-35.0) pg MCHC (31.0-37.0) g/dL RDW (11.5-15.5) % Plt Count (150-450) k/uL MPV Neutrophils % % Lymphocytes % % Monocytes % % Eosinophils % % Basophils % % Neutrophils # (1.3-7.7) k/uL Lymphocytes # (1.0-4.8) k/uL Monocytes # (0-1.0) k/uL Eosinophils # (0-0.7) k/uL Basophils # (0-0.2) k/uL Manual Slide Review RBC Morphology PT (9.0-12.0) sec INR (<1.2) APTT (22.0-30.0) sec Sample Site rrad ABG pH 7.47 H (7.35-7.45) ABG pCO2 45 (35-45) mmHg ABG pO2 >400 H (83-108) mmHg ABG HCO3 33 H (21-25) mmol/L ABG Total CO2 34 H (19-24) mmol/L ABG O2 Saturation 99.9 H (94-97) % ABG Base Excess 8.9 mmol/L Joshua Test Yes FiO2 100 % Sodium (137-145) mmol/L Potassium (3.5-5.1) mmol/L Chloride (98-107) mmol/L Carbon Dioxide (22-30) mmol/L Anion Gap mmol/L BUN (7-17) mg/dL Creatinine (0.52-1.04) mg/dL Est GFR (CKD-EPI)AfAm (>60 ml/min/1.73 sqM) Est GFR (CKD-EPI)NonAf (>60 ml/min/1.73 sqM) Glucose (74-99) mg/dL Calcium (8.4-10.2) mg/dL Critical Care Time Critical Care Time: Yes Total Critical Care Time: 33 Disposition Clinical Impression: Stridor, Tracheomalacia Disposition: ADMITTED IP TO THIS [facility] Condition: Critical Referrals: Ramila Soliz NPC [Primary Care Provider] - 1-2 days Decision Time: 12:31
[2021-01-24] MEDS ORDERED: HYDROmorphone 0.5 MG/0.5 ML SYRINGE IVP STA ×2 (10:47→15:52)
[2021-01-24] MEDS ORDERED: NALOXONE 0.4 MG/ML 1 ML VIAL IV PRN (10:57)
[2021-01-24] MEDS ORDERED: SODIUM CHLORIDE 0.9% 1,000 ML IV SCH (11:00)
[2021-01-24 11:07] LABS: Basophils # (A) 0.1 k/uL (0-0.2); Basophils % (A) 0 %; Eosinophils # (A) 0.2 k/uL (0-0.7); Eosinophils % (A) 1 %; HCT 43.2 % (34.0-46.0); HGB 15.2 gm/dL (11.4-16.0); Lymphocytes # (A) 5.8 k/uL (1.0-4.8); Lymphocytes % (A) 38 %; MCHC 35.2 g/dL (31.0-37.0); Mean Platelet Volume 8.3; Monocytes % (A) 7 %; Neutrophils % (A) 53 %; Platelet Count 272 k/uL (150-450); RBC 4.91 m/uL (3.80-5.40); RDW 13.2 % (11.5-15.5); WBC 15.2 k/uL (3.8-10.6)
[2021-01-24 11:15] LABS: Calcium 9.2 mg/dL (8.4-10.2); Potassium 4.1 mmol/L (3.5-5.1)
[2021-01-24 11:24] LABS: INR 0.9 (<1.2); Prothrombin Time 9.9 sec (9.0-12.0)
--- NOTE | 2021-01-24 11:32 | XR ---
EXAMINATION TYPE: XR chest 1V portable DATE OF EXAM: 01/24/2021 COMPARISON: 02-03 INDICATION: ET tube placement TECHNIQUE: Single frontal view of the chest is obtained. FINDINGS: The heart size is normal. The pulmonary vasculature is normal. Mild infiltrates in the left upper lung field. Previous nodularity is not identified. Some mild infil trates at the left base. Small left pleural effusion may be present. The endotracheal tube tip is 3.7 cm above the dede. Nasogastric tube tip is in the left upper quadr ant of the abdomen. IMPRESSION: 1. Mild left lung subsegmental infiltrates. 2. Lines and catheters discussed above
[2021-01-24] MEDS: PANTOPRAZOLE 40 MG/10 ML VIAL IV SCH (11:36)
[2021-01-24 11:42] LABS: Partial Thromboplastin Time 20.8 sec (22.0-30.0)
[2021-01-24 11:51] LABS: ABG Base Excess 8.9 mmol/L; ABG HCO3 33 mmol/L (21-25); ABG Oxygen Saturation 99.9 % (94-97); ABG PCO2 45 mmHg (35-45); ABG PH 7.47 (7.35-7.45); ABG PO2 >400 mmHg (83-108); ABG TCO2 34 mmol/L (19-24); Allen Test Performed? Yes
--- NOTE | 2021-01-24 14:49 | P.HPIM ---
History of Present Illness H&P Date: 01/24/21 Chief Complaint: Shortness of breath This is a 60-year-old female with past medical history noted below significant for underlying tracheal bronchomalacia that presented to the emergency room with worsening shortness of breath and difficulty breathing. Patient was evaluated in the ER and was found to have evidence of stridor and increased work of breathing. She was sedated and intubated for airway protection. She was seen by me in the ER. She is currently sedated with IV propofol. Patient is currently on minimal vent settings with FiO2 of 40% with PEEP of 5 and blood gas earlier showed pO2 greater than 400. Of note, patient was here in the emergency room 9 days ago when she was diagnosed with COVID-19 and was treated with antibodies and discharged home with a 7 days course of Decadron. Pulmonology and ENT consulted by ER staff for further evaluation. Review of Systems Unable to review other systems as patient is sedated and intubated Past Medical History Past Medical History: Asthma, Heart Failure, COPD, CVA/TIA, GERD/Reflux, Hypertension, Sleep Apnea/CPAP/BIPAP, Thyroid Disorder Additional Past Medical History / Comment(s): Severe persistent bronchial asth ma, severe tracheal bronchomalacia, paradoxic vocal cord function, episodic dysphonia, obstructive sleep apnea, obesity, CHF with systolic dysfunction and EF of 40-45%. TACHYCARDIA. SCOLIOSIS. vocal cord dysfunction, TIA., c -diff 04-22-15 History of Any Multi-Drug Resistant Organisms: C-DIFF Date of last positivie culture/infection: 04/22/15 MDRO Source:: stool Past Surgical History: Cholecystectomy, Heart Catheterization, Orthopedic Surgery, Tubal Ligation, Uterine Ablation Additional Past Surgical History / Comment(s): HEART CATH. BREAST BIOPSY-NEG. COLON POLYP - NEG. D&C. BILATERAL KNEE. NECK CYST. BOWEL RESECTION. VOCAL CORD. BRONCHOSCOPY 3-6-15 PER PT FOUND HERPES SIMPLES BLISTERS IN LUNGS. HAS HAD 15 BRONCHS.rt arm tendon sx Past Anesthesia/Blood Transfusion Reactions: Postoperative Nausea & Vomiting (PONV) Additional Past Anesthesia/Blood Transfusion Reaction / Comment(s): Pt has never recieved blood. Past Psychological History: Anxiety Smoking Status: Never smoker Past Alcohol Use History: None Reported Past Drug Use History: None Reported - Past Family History Father Family Medical History: Cancer, Congestive Heart Failure (CHF), CVA/TIA, Myocardial Infarction ([place]), Prostate Disorder Additional Family Medical History / Comment(s): at age 84- chocked on a hot dog Mother Family Medical History: Cancer, Osteoarthritis (OA) Additional Family Medical History / Comment(s): mom is 84 breast ca surviver. Medications and Allergies Home Medications Medication Instructions Recorded Confirmed Type Albuterol Sulfate [Proair Hfa] 1 - 2 puff INHALATION RT-Q4H PRN 04/11/14 01/24/21 History Ascorbic Acid [Vitamin C] 500 mg PO DAILY 04/11/14 01/24/21 History EPINEPHrine (Auto Inject) [Epipen] 0.3 mg IM ONCE PRN 04/11/14 01/24/21 History Zinc 50 mg PO DAILY 04/11/14 01/24/21 History Magnesium Oxide [Mag-Ox] 250 mg PO DAILY 12/18/14 01/24/21 History Furosemide [Lasix] 40 mg PO BID@0700,1500 04/22/15 01/24/21 History Potassium Chloride [Klor-Con 20] 20 meq PO DAILY 04/22/15 01/24/21 History Montelukast [Singulair] 10 mg PO HS 12/21/15 01/24/21 History Levothyroxine Sodium [Synthroid] 50 mcg PO DAILY 03/03/16 01/24/21 History Metoprolol Tartrate [Lopressor] 25 mg PO BID 01/09/17 01/24/21 History Cholecalciferol [Vitamin D3 (25 5,000 unit PO DAILY 09/10/17 01/24/21 History Mcg = 1000 Iu)] L.acidoph,Paracasei, B.lactis 1 cap PO DAILY 09/10/17 01/24/21 History [Probiotic] Dicyclomine [Bentyl] 20 mg PO TID PRN 12/15/18 01/24/21 History Diphenox-Atrop 2.5-0.025 mg 1 tab PO QID PRN 12/15/18 01/24/21 History [Lomotil] Ipratropium-Albuterol Nebulize 3 ml INHALATION RT-QID PRN 12/15/18 01/24/21 History [Duoneb 0.5 mg-3 mg/3 ml Soln] ALPRAZolam [Xanax] 0.5 mg PO TID PRN 01/15/21 01/24/21 History Albuterol Inhaler [Ventolin Hfa 2 puff INHALATION QID #1 puff 01/15/21 01/24/21 Rx Inhaler] Calcium Carbonate [Calcium] 600 mg PO DAILY 01/15/21 01/24/21 History Dexamethasone [Decadron] 6 mg PO DAILY #7 tablet 01/15/21 01/24/21 Rx Famotidine [Pepcid] 40 mg PO HS 01/15/21 01/24/21 History Fluticasone/Vilanterol [Breo 1 puff INHALATION RT-DAILY 01/15/21 01/24/21 History Ellipta 200-25 Mcg INH] Tiotropium [place] [Spiriva 2 puff INHALATION RT-DAILY 01/24/21 01/24/21 History Respimat] Allergies Allergy/AdvReac Type Severity Reaction Status Date / Time Aminoglycosides Allergy Unknown Verified 01/24/21 10:19 honey Allergy Anaphylaxis Verified 01/24/21 10:19 moxifloxacin HCl Allergy Unknown Verified 01/24/21 10:19 [From Avelox] peanut Allergy Anaphylaxis Verified 01/24/21 10:19 azithromycin [From Zithromax] AdvReac Nausea & Verified 01/24/21 10:19 Vomiting & Diarrhea clindamycin AdvReac Dyspnea Verified 01/24/21 10:19 levofloxacin [From Levaquin] AdvReac Dyspnea Verified 01/24/21 10:19 neomycin [Neomycin] AdvReac Dyspnea Verified 01/24/21 10:19 omalizumab [From Xolair] AdvReac Dyspnea Verified 01/24/21 10:19 sulfamethoxazole AdvReac Diarrhea/co Verified 01/24/21 10:19 [From Bactrim] litis trimethoprim [From Bactrim] AdvReac Diarrhea/co Verified 01/24/21 10:19 litis Physical Exam Vitals: Vital Signs Temp Pulse Resp BP Pulse Ox 01/24/21 14:00 54 L 18 102/66 100 01/24/21 12:57 58 L 18 98/62 100 01/24/21 11:48 66 18 108/83 99 01/24/21 11:41 74 18 104/72 99 01/24/21 10:40 76 18 100 01/24/21 10:28 90 18 158/111 100 01/24/21 10:19 98.1 F 90 18 143/99 99 Intake and Output 01/23/21 01/24/21 01/24/21 22:59 06:59 14:59 Other: Weight 111.811 kg General: The patient is sedated and intubated Eye: there is normal conjunctiva bilaterally. Neck: The neck is supple, there is no JVD. Cardiovascular: Normal S1-S2, no S3-S4, no murmurs. Respiratory: Lungs clear to anterior chest auscultation with mechanical ventilator sounds bilaterally Gastrointestinal: Abdomen is soft, nontender Musculoskeletal: There is no pedal edema. Skin: Skin is warm and dry Results CBC & Chem 7: 01/24/21 10:24 01/24/21 10:24 Labs: Abnormal Lab Results - Last 24 Hours (Table) 01/24/21 01/24/21 01/24/21 Range/Units 10:24 10:24 10:24 WBC 15.2 H (3.8-10.6) k/uL Neutrophils # 8.0 H (1.3-7.7) k/uL Lymphocytes # 5.8 H (1.0-4.8) k/uL APTT 20.8 L (22.0-30.0) sec ABG pH (7.35-7.45) ABG pO2 (83-108) mmHg ABG HCO3 (21-25) mmol/L ABG Total CO2 (19-24) mmol/L ABG O2 Saturation (94-97) % Carbon Dioxide 33 H (22-30) mmol/L BUN 27 H (7-17) mg/dL Creatinine 1.22 H (0.52-1.04) mg/dL 01/24/21 Range/Units 11:38 WBC (3.8-10.6) k/uL Neutrophils # (1.3-7.7) k/uL Lymphocytes # (1.0-4.8) k/uL APTT (22.0-30.0) sec ABG pH 7.47 H (7.35-7.45) ABG pO2 >400 H (83-108) mmHg ABG HCO3 33 H (21-25) mmol/L ABG Total CO2 34 H (19-24) mmol/L ABG O2 Saturation 99.9 H (94-97) % Carbon Dioxide (22-30) mmol/L BUN (7-17) mg/dL Creatinine (0.52-1.04) mg/dL Assessment and Plan Assessment: This is a 60-year-old female who presented to the emergency room with worsening shortness of breath and increased work of breathing. Patient was evaluated in the ER and was found to have stridor and was eventually intubated. She'll be admitted to the ICU for further management of her medical problems noted below. 1. Acute hypoxic respiratory failure secondary to underlying tracheobronchomalacia with questionable upper airway compromise: Patient was successfully intubated in the ER. Pulmonology and ENT consult for further evaluation. 2. Known underlying tracheobronchomalacia with history of paradoxic vocal cord activity 3. Recent diagnosis of COVID-19 on 01/15: Continue vitamin C, vitamin D, and zinc supplement 4. Underlying systolic heart failure: EF of 45%. No evidence of exacerbation 5. Obstructive sleep apnea 6. Hypothyroidism 7. DVT prophylaxis with subcu Lovenox Today, I reviewed her medication list and lab work results. Patient received 10 mg IV Decadron in the ER. I will continue with Decadron 6 mg IV daily. DuoNeb's every 6 hours. Gentle IV fluid hydration with normal saline at 75 mL per hour. I would obtain inflammatory markers including CRP, LDH, and 13. Awaiting netsuite consultant evaluation. Patient will be admitted to the ICU.
[2021-01-24 15:11] LABS: C Reactive Protein 10.1 mg/L (<10.0)
[2021-01-24] MEDS: ASCORBIC ACID 500 MG TAB PO SCH (15:23)
[2021-01-24] MEDS: SODIUM CHLORIDE 0.9% 1,000 ML IV SCH (15:23)
[2021-01-24] MEDS: CHOLECALCIFEROL 25 MCG (1000 IU) TABLET PO SCH (15:23)
[2021-01-24] MEDS: ZINC SULFATE 220 MG CAP PO SCH (15:24)
[2021-01-24] MEDS ORDERED: IPRATROPIUM-ALBUTEROL 3 ML NEB INHALATION SCH (16:00)
--- NOTE | 2021-01-24 17:39 | P.CNPUL ---
History of Present Illness Consult date: 01/24/21 Requesting physician: Ramila Soliz Reason for consult: dyspnea, asthma, hypoxemia, pneumonia, abnormal CXR/CT Chief complaint: Shortness of breath, respiratory failure. Covid 19. History of present illness: 60-year-old female, well-known to our service. She has a history of asthma, and severe tracheomalacia. She typically sees my partner, Dr. Feng. She apparently presented to the emergency room today with complaints of shortness of breath, and stridor. The patient was evaluated in the emergency room, was found to have inspiratory stridor, and was intubated in the ER physician. She's currently on the mechanical ventilator. She is on the volume assist control mode rate is 16, tidal volume 400, FiO2 40%, and PEEP of 5. Initial gases on the same settings but 100%, show pO2 of greater than 400, pCO2 45, a pH is 7.47. Currently, blood pressure is 108/64, saturations are 100%. Heart rhythm is sinus with a rate of 56 bpm, respiratory rate is 16. She's getting propofol at 35 mcg/kg/m. She is getting saline at 75 mL an hour. She did get a liter fluid bolus of saline in the emergency department. She appears relatively stable. In addition, she has a history of CHF, CVA, GERD, hypertension, sleep apnea, and hypothyroidism. Her asthma is severe and persistent. 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 difficile colitis. Lab data includes a white count 15.2, hemoglobin 15.2, hematocrit 43.2, and platelet count is 272,000. PT INR are normal. PTT is normal. Blood gases have been mentioned. Sodium 139, potassium 4.1, chlorides 100, CO2 33, anion gap 6, BUN 27, and creatinine 1.22. In addition, a should be noted, that the patient was in the emergency room 9 days prior, and was diagnosed with COVID 19. She was treated with monoclonal antibodies and discharged on Decadron 6 mg, and an albuterol inhaler.. Review of Systems REVIEW OF SYSTEMS: CONSTITUTIONAL: [Negative.] NEUROLOGIC: [ Negative.] HEENT: Stridor. CARDIAC: [Negative.] PULMONARY: Shortness of breath. GI: [Negative.] : [Negative.] RHEUMATOLOGIC: [ Negative.] IMMUNOLOGIC: [ Negative.] ENDOCRINE: [Negative. ] DERMATOLOGIC: [Negative.] Past Medical History Past Medical History: Asthma, Heart Failure, COPD, CVA/TIA, GERD/Reflux, Hyperte nsion, Sleep Apnea/CPAP/BIPAP, Thyroid Disorder Additional Past Medical History / Comment(s): Severe persistent bronchial asthma, severe tracheal bronchomalacia, paradoxic vocal cord function, episodic dysphonia, obstructive sleep apnea, obesity, CHF with systolic dysfunction and EF of 40-45%. TACHYCARDIA. SCOLIOSIS. vocal cord dysfunction, TIA., c -diff 04-22-15 History of Any Multi-Drug Resistant Organisms: C-DIFF Date of last positivie culture/infection: 04/22/15 MDRO Source:: stool Past Surgical History: Cholecystectomy, Heart Catheterization, Orthopedic Surgery, Tubal Ligation, Uterine Ablation Additional Past Surgical History / Comment(s): HEART CATH. BREAST BIOPSY-NEG. COLON POLYP - NEG. D&C. BILATERAL KNEE. NECK CYST. BOWEL RESECTION. VOCAL CORD. BRONCHOSCOPY 3--15 PER PT FOUND HERPES SIMPLES BLISTERS IN LUNGS. HAS HAD 15 BRONCHS.rt arm tendon sx Past Anesthesia/Blood Transfusion Reactions: Postoperative Nausea & Vomiting (PONV) Additional Past Anesthesia/Blood Transfusion Reaction / Comment(s): Pt has never recieved blood. Past Psychological History: Anxiety Smoking Status: Never smoker Past Alcohol Use History: None Reported Past Drug Use History: None Reported - Past Family History Father Family Medical History: Cancer, Congestive Heart Failure (CHF), CVA/TIA, Myocardial Infarction (RI), Prostate Disorder Additional Family Medical History / Comment(s): at age 84- chocked on a hot dog Mother Family Medical History: Cancer, Osteoarthritis (OA) Additional Family Medical History / Comment(s): mom is 84 breast ca surviver. Medications and Allergies Home Medications Medication Instructions Recorded Confirmed Type Albuterol Sulfate [Proair Hfa] 1 - 2 puff INHALATION RT-Q4H PRN 04/11/14 01/24/21 History Ascorbic Acid [Vitamin C] 500 mg PO DAILY 04/11/14 01/24/21 History EPINEPHrine (Auto Inject) [Epipen] 0.3 mg IM ONCE PRN 04/11/14 01/24/21 History Zinc 50 mg PO DAILY 04/11/14 01/24/21 History Magnesium Oxide [Mag-Ox] 250 mg PO DAILY 12/18/14 01/24/21 History Furosemide [Lasix] 40 mg PO BID@0700,1500 04/22/15 01/24/21 History Potassium Chloride [Klor-Con 20] 20 meq PO DAILY 04/22/15 01/24/21 History Montelukast [Singulair] 10 mg PO HS 12/21/15 01/24/21 History Levothyroxine Sodium [Synthroid] 50 mcg PO DAILY 03/03/16 01/24/21 History Metoprolol Tartrate [Lopressor] 25 mg PO BID 01/09/17 01/24/21 History Cholecalciferol [Vitamin D3 (25 5,000 unit PO DAILY 09/10/17 01/24/21 History Mcg = 1000 Iu)] L.acidoph,Paracasei, B.lactis 1 cap PO DAILY 09/10/17 01/24/21 History [Probiotic] Dicyclomine [Bentyl] 20 mg PO TID PRN 12/15/18 01/24/21 History Diphenox-Atrop 2.5-0.025 mg 1 tab PO QID PRN 12/15/18 01/24/21 History [Lomotil] Ipratropium-Albuterol Nebulize 3 ml INHALATION RT-QID PRN 12/15/18 01/24/21 History [Duoneb 0.5 mg-3 mg/3 ml Soln] ALPRAZolam [Xanax] 0.5 mg PO TID PRN 01/15/21 01/24/21 History Albuterol Inhaler [Ventolin Hfa 2 puff INHALATION QID #1 puff 01/15/21 01/24/21 Rx Inhaler] Calcium Carbonate [Calcium] 600 mg PO DAILY 01/15/21 01/24/21 History Dexamethasone [Decadron] 6 mg PO DAILY #7 tablet 01/15/21 01/24/21 Rx Famotidine [Pepcid] 40 mg PO HS 01/15/21 01/24/21 History Fluticasone/Vilanterol [Breo 1 puff INHALATION RT-DAILY 01/15/21 01/24/21 History Ellipta 200-25 Mcg INH] Tiotropium Emmett [Spiriva 2 puff INHALATION RT-DAILY 01/24/21 01/24/21 History Respimat] Allergies Allergy/AdvReac Type Severity Reaction Status Date / Time Aminoglycosides Allergy Unknown Verified 01/24/21 10:19 honey Allergy Anaphylaxis Verified 01/24/21 10:19 moxifloxacin HCl Allergy Unknown Verified 01/24/21 10:19 [From Avelox] peanut Allergy Anaphylaxis Verified 01/24/21 10:19 azithromycin [From Zithromax] AdvReac Nausea & Verified 01/24/21 10:19 Vomiting & Diarrhea clindamycin AdvReac Dyspnea Verified 01/24/21 10:19 levofloxacin [From Levaquin] AdvReac Dyspnea Verified 01/24/21 10:19 neomycin [Neomycin] AdvReac Dyspnea Verified 01/24/21 10:19 omalizumab [From Xolair] AdvReac Dyspnea Verified 01/24/21 10:19 sulfamethoxazole AdvReac Diarrhea/co Verified 01/24/21 10:19 [From Bactrim] litis trimethoprim [From Bactrim] AdvReac Diarrhea/co Verified 01/24/21 10:19 litis Physical Exam Osteopathic Statement: *. No significant issues noted on an osteopathic structural exam other than those noted in the History and Physical/Consult. Vitals: Vital Signs Temp Pulse Resp BP Pulse Ox 01/24/21 17:03 61 18 111/69 100 01/24/21 15:27 52 L 18 102/71 100 01/24/21 14:00 54 L 18 102/66 100 01/24/21 12:57 58 L 18 98/62 100 01/24/21 11:48 66 18 108/83 99 01/24/21 11:41 74 18 104/72 99 01/24/21 10:40 76 18 100 01/24/21 10:28 90 18 158/111 100 01/24/21 10:19 98.1 F 90 18 143/99 99 Intake and Output 01/24/21 01/24/21 01/24/21 06:59 14:59 22:59 Intake Total 37.289 Balance 37.289 Intake: Intake, IV Titration 37.289 Amount propofoL 1,000 mg In 37.289 Empty Bag 1 bag @ Titrate IV .[facility] Rx#: [id number] Other: Weight 111.811 kg No acute distress, intubated, and mechanically ventilated, currently sedated with propofol. HEENT examination is grossly unremarkable. The patient has an orally placed endotracheal tube. Neck supple. Full range of motion. No adenopathy thyromegaly or neck vein distention. Cardiovascular examination reveals regular rhythm rate. S1-S2 normal. No S3 or S4. No discernible murmur noted. Heart rate 61 bpm. Lungs reveal mostly clear breath sounds. Her sounds are equal bilaterally. A few scattered rhonchi are noted. No wheezes. Abdomen soft bowel sounds are heard. No masses or tenderness. Extremities are intact. No cyanosis clubbing or edema. Skin is without rash or lesion. Neurologic examination could not be assessed as the patient is currently sedated. Results - Laboratory Findings CBC and BMP: 01/24/21 10:24 01/24/21 10:24 ABG ABG pH 7.47 (7.35-7.45) H 01/24/21 11:38 ABG pCO2 45 mmHg (35-45) 01/24/21 11:38 ABG pO2 >400 mmHg (83-108) H 01/24/21 11:38 ABG O2 Saturation 99.9 % (94-97) H 01/24/21 11:38 PT/INR, D-dimer PT 9.9 sec (9.0-12.0) 01/24/21 10:24 INR 0.9 (<1.2) 01/24/21 10:24 Abnormal lab findings: Abnormal Labs 01/24/21 01/24/21 01/24/21 10:24 10:24 10:24 WBC 15.2 H Neutrophils # 8.0 H Lymphocytes # 5.8 H APTT 20.8 L ABG pH ABG pO2 ABG HCO3 ABG Total CO2 ABG O2 Saturation Carbon Dioxide 33 H BUN 27 H Creatinine 1.22 H C-Reactive Protein 01/24/21 01/24/21 10:24 11:38 WBC Neutrophils # Lymphocytes # APTT ABG pH 7.47 H ABG pO2 >400 H ABG HCO3 33 H ABG Total CO2 34 H ABG O2 Saturation 99.9 H Carbon Dioxide BUN Creatinine C-Reactive Protein 10.1 H - Diagnostic Findings Chest x-ray: image reviewed Assessment and Plan Assessment: Acute hypoxemic respiratory failure, multifactorial, in part related to recent diagnosis of COVID 19 infection, severe persistent chronic bronchial asthma, and severe tracheomalacia. Patient was intubated in the emergency department on 01/24/2021. History of severe persistent chronic bronchial asthma. History of severe laryngeotracheomalacia and stridor. History of CHF. History of CVA. Gastroesophageal reflux disease. History of essential hypertension. History of obstructive sleep apnea syndrome, currently on CPAP. Hypothyroidism. Vocal cord dysfunction. History of C. difficile colitis. Plan: Plan dated 01/24/2021. The patient is seen in the emergency department. We are attempting to make her wound for her in the intensive care unit. Currently, her vital signs are stable. Her blood gases are reasonable. She is on saline at 75 mL an hour, propofol at 35 mcg/kg/m. Additional recommendations and suggestions are for thcoming. Prognosis is guarded. Currently, she is on vitamin C, vitamin D3, Decadron, DuoNeb, Singulair, and zinc. The patient's also on Lovenox. Time with Patient: Greater than 30
[2021-01-24 18:10] LABS: Glucose,Whole Blood 145 mg/dL (75-99)
[2021-01-24] MEDS: IPRATROPIUM-ALBUTEROL 3 ML NEB INHALATION SCH ×2 (18:52→23:38)
[2021-01-24] MEDS: MONTELUKAST 10 MG TAB PO SCH (21:36)
[2021-01-24] MEDS: METOPROLOL TARTRATE 25 MG TAB PO SCH (21:36)
[2021-01-24 21:45] LABS: Glucose,Whole Blood 131 mg/dL (75-99)
[2021-01-25] MEDS: IPRATROPIUM-ALBUTEROL 3 ML NEB INHALATION SCH (03:38)
[2021-01-25 04:27] LABS: Basophils % (A) 0 %; Eosinophils % (A) 0 %; HCT 38.3 % (34.0-46.0); HGB 13.3 gm/dL (11.4-16.0); Lymphocytes # (A) 1.3 k/uL (1.0-4.8); Lymphocytes % (A) 11 %; MCH 30.7 pg (25.0-35.0); MCHC 34.6 g/dL (31.0-37.0); MCV 88.6 fL (80.0-100.0); Mean Platelet Volume 8.2; Monocytes # (A) 0.5 k/uL (0-1.0); Monocytes % (A) 4 %; Neutrophils # (A) 10.3 k/uL (1.3-7.7); Neutrophils % (A) 85 %; Platelet Count 204 k/uL (150-450); RBC 4.32 m/uL (3.80-5.40); RDW 13.3 % (11.5-15.5); WBC 12.2 k/uL (3.8-10.6)
[2021-01-25 04:46] LABS: ALT 161 U/L (4-34); AST 141 U/L (14-36); African American GFR (CKD) >90 (>60 ml/min/1.73 sqM); Albumin 3.2 g/dL (3.5-5.0); Alkaline Phosphatase 94 U/L (38-126); Anion Gap 3 mmol/L; Blood Urea Nitrogen 21 mg/dL (7-17); Calcium 8.4 mg/dL (8.4-10.2); Carbon Dioxide 31 mmol/L (22-30); Chloride 103 mmol/L (98-107); Glucose 119 mg/dL (74-99); Magnesium 2.3 mg/dL (1.6-2.3); Non-African American GFR(CKD) 78 (>60 ml/min/1.73 sqM); Potassium 3.8 mmol/L (3.5-5.1); Sodium 137 mmol/L (137-145); Total Bilirubin 0.7 mg/dL (0.2-1.3); Total Protein 5.9 g/dL (6.3-8.2)
[2021-01-25] MEDS: SODIUM CHLORIDE 0.9% 1,000 ML IV SCH ×2 (05:24→17:25)
[2021-01-25] MEDS: LEVOTHYROXINE 50 MCG TAB PO SCH (06:56)
[2021-01-25 07:17] LABS: ABG HCO3 32 mmol/L (21-25); ABG Oxygen Saturation 99.3 % (94-97); ABG PCO2 43 mmHg (35-45); ABG PH 7.48 (7.35-7.45); ABG PO2 139 mmHg (83-108); ABG TCO2 34 mmol/L (19-24); Allen Test Performed? Yes
[2021-01-25] MEDS: ALBUTEROL HFA INHALER INHALATION SCH ×5 (08:16→23:33)
--- NOTE | 2021-01-25 08:32 | P.PN ---
Subjective Progress Note Date: 01/25/21 60-year-old female, well-known to our service. She has a history of asthma, and severe tracheomalacia. She typically sees my partner, Dr. Feng. She apparently presented to the emergency room today with complaints of shortness of breath, and stridor. The patient was evaluated in the emergency room, was found to have inspiratory stridor, and was intubated in the ER physician. She's currently on the mechanical ventilator. She is on the volume assist control mode rate is 16, tidal volume 400, FiO2 40%, and PEEP of 5. Initial gases on the same settings but 100%, show pO2 of greater than 400, pCO2 45, a pH is 7.47. Currently, blood pressure is 108/64, saturations are 100%. Heart rhythm is sinus with a rate of 56 bpm, respiratory rate is 16. She's getting propofol at 35 mcg/kg/m. She is getting saline at 75 mL an hour. She did get a liter fluid bolus of saline in the emergency department. She appears relatively stable. In addition, she has a history of CHF, CVA, GERD, hypertension, sleep apnea, and hypothyroidism. Her asthma is severe and persistent. 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 difficile colitis. Lab data includes a white count 15.2, hemoglobin 15.2, hematocrit 43.2, and platelet count is 272,000. PT INR are normal. PTT is normal. Blood gases have been mentioned. Sodium 139, potassium 4.1, chlorides 100, CO2 33, anion gap 6, BUN 27, and creatinine 1.22. In addition, a should be noted, that the patient was in the emergency room 9 days prior, and was diagnosed with COVID 19. She was treated with monoclonal antibodies and discharged on Decadron 6 mg, and an albuterol inhaler. On today's evaluation of 01/25/2021 the patient remains intubated on a mechanical ventilator secondary to COVID 19 related pneumonia. The patient is sedated with propofol and the patient is also chronic propofol at the rate of 40 mcg/kg per minute. The patient on assist control mode of ventilation with tidal volume of 400, FiO2 of 40% with a PEEP of 5 and the rate of 16. Chest x-ray is showing bilateral pulmonary infiltrates, mainly in the lung bases consistent with Covid 19 pneumonia. The patient's is currently also on IV fluids running at 75 mL's an hour. She is on Decadron 6 mg IV every 24 hours. The CRP is at 10.1. LDH is at 573. Creatinine is at 0.8. Electrolytes are all within normal limits. The patient is currently on Lovenox 40 mg subcu every 24 hours. The patient is on Decadron 6 mg IV every 24 hours. IV fluids at 75 mL an hour. Cardiac rhythm is sinus for now. The patient was infected with Covid 19 and the patient received monoclonal antibodies on outpatient basis. She was in the ED approximately 9 days ago receiving her treatment the patient was taken Decadron outpatient basis. On today's evaluation, the patient is resting comfortably on a mechanical ventilator. Peak airway pressures around 19. The patient remains on FiO2 of 40%. A blood gas from today showing a pH of 7.48 with a pCO2 of 43 and pO2 of 139. Objective - Vital Signs Vital signs: Vital Signs Temp 97.4 F L 01/25/21 01:00 Pulse 63 01/25/21 07:00 Resp 16 01/25/21 07:00 BP 115/68 01/25/21 07:00 Pulse Ox 98 01/25/21 07:00 Intake & Output 01/24/21 01/25/21 01/25/21 18:59 06:59 18:59 Intake Total 1037.289 259.094 Output Total 700 900 Balance 337.289 -640.906 Weight 111.811 kg Intake: Intake, IV Titration 1037.289 259.094 Amount Sodium Chloride 0.9% 1, 1000 000 ml @ 75 mls/hr IV . [id number] [facility] Rx#:[id number] propofoL 1,000 mg In 37.289 259.094 Empty Bag 1 bag @ Titrate IV .Q0M [facility] Rx#: [id number] Output: Urine 700 900 - Exam No acute distress, intubated, and mechanically ventilated, currently sedated with propofol. HEENT examination is grossly unremarkable. The patient has an orally placed endotracheal tube. Neck supple. Full range of motion. No adenopathy thyromegaly or neck vein distention. Cardiovascular examination reveals regular rhythm rate. S1-S2 normal. No S3 or S4. No discernible murmur noted. Heart rate 61 bpm. Lungs reveal mostly clear breath sounds. Her sounds are equal bilaterally. A few scattered rhonchi are noted. No wheezes. Abdomen soft bowel sounds are heard. No masses or tenderness. Extremities are intact. No cyanosis clubbing or edema. Skin is without rash or lesion. Neurologic examination could not be assessed as the patient is currently sedated. - Labs CBC & Chem 7: 01/25/21 03:55 01/25/21 03:55 Labs: Abnormal Lab Results - Last 24 Hours (Table) 01/24/21 01/24/21 01/24/21 Range/Units 10:24 10:24 10:24 WBC 15.2 H (3.8-10.6) k/uL Neutrophils # 8.0 H (1.3-7.7) k/uL Lymphocytes # 5.8 H (1.0-4.8) k/uL APTT 20.8 L (22.0-30.0) sec ABG pH (7.35-7.45) ABG pO2 (83-108) mmHg ABG HCO3 (21-25) mmol/L ABG Total CO2 (19-24) mmol/L ABG O2 Saturation (94-97) % Carbon Dioxide 33 H (22-30) mmol/L BUN 27 H (7-17) mg/dL Creatinine 1.22 H (0.52-1.04) mg/dL Glucose (74-99) mg/dL POC Glucose (mg/dL) (75-99) mg/dL AST (14-36) U/L ALT (4-34) U/L C-Reactive Protein (<10.0) mg/L Total Protein (6.3-8.2) g/dL Albumin (3.5-5.0) g/dL 01/24/21 01/24/21 01/24/21 Range/Units 10:24 11:38 17:56 WBC (3.8-10.6) k/uL Neutrophils # (1.3-7.7) k/uL Lymphocytes # (1.0-4.8) k/uL APTT (22.0-30.0) sec ABG pH 7.47 H (7.35-7.45) ABG pO2 >400 H (83-108) mmHg ABG HCO3 33 H (21-25) mmol/L ABG Total CO2 34 H (19-24) mmol/L ABG O2 Saturation 99.9 H (94-97) % Carbon Dioxide (22-30) mmol/L BUN (7-17) mg/dL Creatinine (0.52-1.04) mg/dL Glucose (74-99) mg/dL POC Glucose (mg/dL) 145 H (75-99) mg/dL AST (14-36) U/L ALT (4-34) U/L C-Reactive Protein 10.1 H (<10.0) mg/L Total Protein (6.3-8.2) g/dL Albumin (3.5-5.0) g/dL 01/24/21 01/25/21 01/25/21 Range/Units 21:43 03:55 03:55 WBC 12.2 H (3.8-10.6) k/uL Neutrophils # 10.3 H (1.3-7.7) k/uL Lymphocytes # (1.0-4.8) k/uL APTT (22.0-30.0) sec ABG pH (7.35-7.45) ABG pO2 (83-108) mmHg ABG HCO3 (21-25) mmol/L ABG Total CO2 (19-24) mmol/L ABG O2 Saturation (94-97) % Carbon Dioxide 31 H (22-30) mmol/L BUN 21 H (7-17) mg/dL Creatinine (0.52-1.04) mg/dL Glucose 119 H (74-99) mg/dL POC Glucose (mg/dL) 131 H (75-99) mg/dL AST 141 H (14-36) U/L ALT 161 H (4-34) U/L C-Reactive Protein (<10.0) mg/L Total Protein 5.9 L (6.3-8.2) g/dL Albumin 3.2 L (3.5-5.0) g/dL 01/25/21 Range/Units 07:14 WBC (3.8-10.6) k/uL Neutrophils # (1.3-7.7) k/uL Lymphocytes # (1.0-4.8) k/uL APTT (22.0-30.0) sec ABG pH 7.48 H (7.35-7.45) ABG pO2 139 H (83-108) mmHg ABG HCO3 32 H (21-25) mmol/L ABG Total CO2 34 H (19-24) mmol/L ABG O2 Saturation 99.3 H (94-97) % Carbon Dioxide (22-30) mmol/L BUN (7-17) mg/dL Creatinine (0.52-1.04) mg/dL Glucose (74-99) mg/dL POC Glucose (mg/dL) (75-99) mg/dL AST (14-36) U/L ALT (4-34) U/L C-Reactive Protein (<10.0) mg/L Total Protein (6.3-8.2) g/dL Albumin (3.5-5.0) g/dL Assessment and Plan Plan: 1 Acute hypoxemic respiratory failure, multifactorial, in part related to recent diagnosis of COVID 19 infection, severe persistent chronic bronchial asthma, and severe tracheomalacia. Patient was intubated in the emergency department on 01/24/2021. Chest x-ray showed limited inflammatory infiltrates in lung bases bilaterally. The patient was being treated with Decadron an outpatient basis. She also received monoclonal antibody still with Covid 19 infection. The patient is currently intubated on a mechanical ventilator and the patient sedated with propofol. Hemodynamically stable. Mild elevation of inflammatory markers. 2 History of severe persistent chronic bronchial asthma. 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 4 History of CHF. 5 History of CVA. 6 Gastroesophageal reflux disease. 7 History of essential hypertension. 8 History of obstructive sleep apnea syndrome, currently on CPAP. 9 Hypothyroidism. 10 Vocal cord dysfunction. 11 History of C. difficile colitis. Plan: Stop the with propofol and assess the patient's weaning parameters and assess the readiness to wean and possible extubation today Chest x-ray and blood gases were noted Continued IV fluids at 75 mL an hour normal saline Continue Decadron 6 mg IV every 24 hours Move the patient to the intensive care unit Lovenox 40 mg subcu for DVT prophylaxis Vitamin C vitamin D and zinc oxide Hold off on tube feeds for possible extubation today Condition is critical and prognosis is poor knowing her extensive comorbidities. We'll continue to follow Critical care evaluation that was done and more than 30 minutes Time with Patient: Greater than 30
[2021-01-25] MEDS: ZINC SULFATE 220 MG CAP PO SCH (11:37)
[2021-01-25] MEDS: ASCORBIC ACID 500 MG TAB PO SCH (11:37)
[2021-01-25] MEDS: CHOLECALCIFEROL 25 MCG (1000 IU) TABLET PO SCH (11:37)
[2021-01-25] MEDS: DEXAMETHASONE SOD PHOSPHATE 10 MG/ML 1 ML VIAL IV SCH (11:39)
[2021-01-25] MEDS: PANTOPRAZOLE 40 MG/10 ML VIAL IV SCH (11:39)
--- NOTE | 2021-01-25 13:50 | P.PN ---
Subjective Progress Note Date: 01/25/21 Patient was extubated this morning. She is currently on BiPAP. She still reports some shortness of breath. No acute events reported by nursing staff. Objective - Vital Signs Vital signs: Vital Signs Temp 99.2 F 01/25/21 13:46 Pulse 92 01/25/21 13:46 Resp 24 01/25/21 13:46 BP 177/98 01/25/21 13:46 Pulse Ox 100 01/25/21 13:46 Intake & Output 01/24/21 01/25/21 01/25/21 18:59 06:59 18:59 Intake Total 1037.289 259.094 Output Total 700 900 Balance 337.289 -640.906 Weight 111.811 kg Intake: Intake, IV Titration 1037.289 259.094 Amount Sodium Chloride 0.9% 1, 1000 000 ml @ 75 mls/hr IV . [id number] [facility] Rx#:[id number] propofoL 1,000 mg In 37.289 259.094 Empty Bag 1 bag @ Titrate IV .Q0M [facility] Rx#: [id number] Output: Urine 700 900 - Exam General: The patient is awake and alert, in no distress. BiPAP in place Eye: there is normal conjunctiva bilaterally. Neck: The neck is supple, there is no JVD. Cardiovascular: Normal S1-S2, no S3-S4, no murmurs. Respiratory: Lungs clear to anterior chest auscultation bilaterally Gastrointestinal: Abdomen is soft, nontender Musculoskeletal: There is no pedal edema. Neurological:. Speech is normal. Skin: Skin is warm and dry - Labs CBC & Chem 7: 01/25/21 03:55 01/25/21 03:55 Labs: Abnormal Lab Results - Last 24 Hours (Table) 01/24/21 01/24/21 01/24/21 Range/Units 10:24 17:56 21:43 WBC (3.8-10.6) k/uL Neutrophils # (1.3-7.7) k/uL ABG pH (7.35-7.45) ABG pO2 (83-108) mmHg ABG HCO3 (21-25) mmol/L ABG Total CO2 (19-24) mmol/L ABG O2 Saturation (94-97) % Carbon Dioxide (22-30) mmol/L BUN (7-17) mg/dL Glucose (74-99) mg/dL POC Glucose (mg/dL) 145 H 131 H (75-99) mg/dL AST (14-36) U/L ALT (4-34) U/L C-Reactive Protein 10.1 H (<10.0) mg/L Total Protein (6.3-8.2) g/dL Albumin (3.5-5.0) g/dL 01/25/21 01/25/21 01/25/21 Range/Units 03:55 03:55 07:14 WBC 12.2 H (3.8-10.6) k/uL Neutrophils # 10.3 H (1.3-7.7) k/uL ABG pH 7.48 H (7.35-7.45) ABG pO2 139 H (83-108) mmHg ABG HCO3 32 H (21-25) mmol/L ABG Total CO2 34 H (19-24) mmol/L ABG O2 Saturation 99.3 H (94-97) % Carbon Dioxide 31 H (22-30) mmol/L BUN 21 H (7-17) mg/dL Glucose 119 H (74-99) mg/dL POC Glucose (mg/dL) (75-99) mg/dL AST 141 H (14-36) U/L ALT 161 H (4-34) U/L C-Reactive Protein (<10.0) mg/L Total Protein 5.9 L (6.3-8.2) g/dL Albumin 3.2 L (3.5-5.0) g/dL Assessment and Plan Assessment: This is a 60-year-old female who presented to the emergency room with worsening shortness of breath and increased work of breathing. Patient was evaluated in the ER and was found to have stridor and was eventually intubated. She'll be admitted to the ICU for further management of her medical problems noted below. 1. Acute hypoxic respiratory failure secondary to underlying tr acheobronchomalacia: Patient was intubated and requiring mechanical ventilation for less than 24 hours. She was successfully extubated on 01/25. Currently on BiPAP. Pulmonology following closely. 2. Known underlying tracheobronchomalacia with history of paradoxic vocal cord activity 3. Recent diagnosis of COVID-19 on 4/2: Continue vitamin C, vitamin D, and zinc supplement. Inflammatory markers within acceptable range 4. Underlying systolic heart failure: EF of 45%. No evidence of exacerbation 5. Obstructive sleep apnea 6. Hypothyroidism 7. DVT prophylaxis with subcu Lovenox Today, I reviewed her medication list and lab work results. Continue Decadron 6 mg IV daily. DuoNeb's every 6 hours. Gentle IV fluid hydration with normal saline at 75 mL per hour. Awaiting bed availability in the ICU
[2021-01-25] MEDS: ENOXAPARIN 40 MG/0.4 ML SYRINGE SQ SCH (13:59)
[2021-01-25] MEDS: METOPROLOL TARTRATE 25 MG TAB PO SCH ×2 (15:18→22:52)
[2021-01-25] MEDS: MONTELUKAST 10 MG TAB PO SCH (22:53)
[2021-01-26] MEDS: ALBUTEROL HFA INHALER INHALATION SCH ×5 (03:22→19:40)
[2021-01-26] MEDS: LEVOTHYROXINE 50 MCG TAB PO SCH (06:42)
--- NOTE | 2021-01-26 08:58 | P.PN ---
Subjective Progress Note Date: 01/25/21 60-year-old female, well-known to our service. She has a history of asthma, and severe tracheomalacia. She typically sees my partner, Dr. Feng. She apparently presented to the emergency room today with complaints of shortness of breath, and stridor. The patient was evaluated in the emergency room, was found to have inspiratory stridor, and was intubated in the ER physician. She's currently on the mechanical ventilator. She is on the volume assist control mode rate is 16, tidal volume 400, FiO2 40%, and PEEP of 5. Initial gases on the same settings but 100%, show pO2 of greater than 400, pCO2 45, a pH is 7.47. Currently, blood pressure is 108/64, saturations are 100%. Heart rhythm is sinus with a rate of 56 bpm, respiratory rate is 16. She's getting propofol at 35 mcg/kg/m. She is getting saline at 75 mL an hour. She did get a liter fluid bolus of saline in the emergency department. She appears relatively stable. In addition, she has a history of CHF, CVA, GERD, hypertension, sleep apnea, and hypothyroidism. Her asthma is severe and persistent. 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 difficile colitis. Lab data includes a white count 15.2, hemoglobin 15.2, hematocrit 43.2, and platelet count is 272,000. PT INR are normal. PTT is normal. Blood gases have been mentioned. Sodium 139, potassium 4.1, chlorides 100, CO2 33, anion gap 6, BUN 27, and creatinine 1.22. In addition, a should be noted, that the patient was in the emergency room 9 days prior, and was diagnosed with COVID 19. She was treated with monoclonal antibodies and discharged on Decadron 6 mg, and an albuterol inhaler. On today's evaluation of 01/25/2021 the patient remains intubated on a mechanical ventilator secondary to COVID 19 related pneumonia. The patient is sedated with propofol and the patient is also chronic propofol at the rate of 40 mcg/kg per minute. The patient on assist control mode of ventilation with tidal volume of 400, FiO2 of 40% with a PEEP of 5 and the rate of 16. Chest x-ray is showing bilateral pulmonary infiltrates, mainly in the lung bases consistent with Covid 19 pneumonia. The patient's is currently also on IV fluids running at 75 mL's an hour. She is on Decadron 6 mg IV every 24 hours. The CRP is at 10.1. LDH is at 573. Creatinine is at 0.8. Electrolytes are all within normal limits. The patient is currently on Lovenox 40 mg subcu every 24 hours. The patient is on Decadron 6 mg IV every 24 hours. IV fluids at 75 mL an hour. Cardiac rhythm is sinus for now. The patient was infected with Covid 19 and the patient received monoclonal antibodies on outpatient basis. She was in the ED approximately 9 days ago receiving her treatment the patient was taken Decadron outpatient basis. On today's evaluation, the patient is resting comfortably on a mechanical ventilator. Peak airway pressures around 19. The patient remains on FiO2 of 40%. A blood gas from today showing a pH of 7.48 with a pCO2 of 43 and pO2 of 139. 01/26/2021 the patient was extubated successfully and the patient is currently on a BiPAP at a pressure of 16/8 cm of water with an FiO2 of 40%. She is able to generate a volume of 611 with a respiratory rate of 15 and a minute ventil ation is around 9.2. Her current pulse ox is 99%. She is awake and alert and she is following commands patient is a bit lethargic and weak. She is hemodynamically stable and she is also had a normal sinus rhythm. She has normal saline at the rate of 75 mL an hour. No other drips for now. The chest x-ray from today is not done. The labs from today is still pending for now. Otherwise the patient remains on Decadron 6 IV every 24 hours on Lovenox 40 mg subcu every 24 hours. The patient remains nothing by mouth. She is awake and alert and she is quite weak and she has generalized global muscle weakness. She is able to raise her arms against gravity. She has a positive cough. Mentation is alert and the patient was able to recognize me. Objective - Vital Signs Vital signs: Vital Signs Temp 99.2 F 01/25/21 18:40 Pulse 66 01/25/21 19:00 Resp 18 01/25/21 19:00 BP 132/73 01/25/21 19:00 Pulse Ox 99 01/25/21 19:00 Intake & Output 01/25/21 01/25/21 01/26/21 06:59 18:59 06:59 Intake Total 259.094 Output Total 900 Balance -640.906 Weight 111.811 kg Intake: Intake, IV Titration 259.094 Amount propofoL 1,000 mg In 259.094 Empty Bag 1 bag @ Titrate IV .Q0M [facility] Rx#: [id number] Output: Urine 900 - Exam No acute distress, currently on a BiPAP and the patient is awake and alert, somewhat lethargic and weak and the patient is able to tolerate the BiPAP without any major difficulties. In fact she is requesting for the BiPAP to be taken off. HEENT examination is grossly unremarkable. The patient has an orally placed endotracheal tube. Neck supple. Full range of motion. No adenopathy thyromegaly or neck vein distention. Cardiovascular examination reveals regular rhythm rate. S1-S2 normal. No S3 or S4. No discernible murmur noted. Lungs reveal mostly clear breath sounds. Her sounds are equal bilaterally. A few scattered rhonchi are noted. No wheezes. Abdomen soft bowel sounds are heard. No masses or tenderness. Extremities are intact. No cyanosis clubbing or edema. Skin is without rash or lesion. Neurologic examination is nonfocal and the patient has generalized motor weakness in all 4 extremities. - Labs CBC & Chem 7: 01/25/21 03:55 01/25/21 03:55 Labs: Abnormal Lab Results - Last 24 Hours (Table) 01/24/21 01/25/21 01/25/21 Range/Units 21:43 03:55 03:55 WBC 12.2 H (3.8-10.6) k/uL Neutrophils # 10.3 H (1.3-7.7) k/uL ABG pH (7.35-7.45) ABG pO2 (83-108) mmHg ABG HCO3 (21-25) mmol/L ABG Total CO2 (19-24) mmol/L ABG O2 Saturation (94-97) % Carbon Dioxide 31 H (22-30) mmol/L BUN 21 H (7-17) mg/dL Glucose 119 H (74-99) mg/dL POC Glucose (mg/dL) 131 H (75-99) mg/dL AST 141 H (14-36) U/L ALT 161 H (4-34) U/L Total Protein 5.9 L (6.3-8.2) g/dL Albumin 3.2 L (3.5-5.0) g/dL 01/25/21 Range/Units 07:14 WBC (3.8-10.6) k/uL Neutrophils # (1.3-7.7) k/uL ABG pH 7.48 H (7.35-7.45) ABG pO2 139 H (83-108) mmHg ABG HCO3 32 H (21-25) mmol/L ABG Total CO2 34 H (19-24) mmol/L ABG O2 Saturation 99.3 H (94-97) % Carbon Dioxide (22-30) mmol/L BUN (7-17) mg/dL Glucose (74-99) mg/dL POC Glucose (mg/dL) (75-99) mg/dL AST (14-36) U/L ALT (4-34) U/L Total Protein (6.3-8.2) g/dL Albumin (3.5-5.0) g/dL Assessment and Plan Plan: 1 Acute hypoxemic respiratory failure, multifactorial, in part related to recent diagnosis of COVID 19 infection, severe persistent chronic bronchial asthma, and severe tracheomalacia. Patient was intubated in the emergency department on 01/24/2021. Chest x-ray showed limited inflammatory infiltrates in lung bases bilaterally. The patient was being treated with Decadron an outpatient basis. She also received monoclonal antibody still with Covid 19 infection. The patient is currently intubated on a mechanical ventilator and the patient sedated with propofol. A sore in the emergency department yesterday and I extubate this patient this morning she is on a BiPAP at a pressure of 16/8 cm of water and FiO2 of 40%. The patient is is quite comfortable. Chest x-ray and blood work is pending for now. 2 History of severe persistent chronic bronchial asthma. 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 4 History of CHF. 5 History of CVA. 6 Gastroesophageal reflux disease. 7 History of essential hypertension. 8 History of obstructive sleep apnea syndrome, currently on CPAP. 9 Hypothyroidism. 10 Vocal cord dysfunction. 11 History of C. difficile colitis. Plan: Keep the patient extubated Stop the BiPAP and put the patient on 5 L of oxygen by nasal cannula and titrate the flow to maintain a saturation above 90%. She can still use the BiPAP on and off during the day and especially at nighttime. The patient has a CPAP machine at home. Obtain chest x-ray and blood work Continued IV fluids at 75 mL an hour normal saline Continue Decadron 6 mg IV every 24 hours Move the patient to the intensive care unit Lovenox 40 mg subcu for DVT prophylaxis Vitamin C vitamin D and zinc oxide Swallow evaluation Condition is critical and prognosis is poor knowing her extensive comorbidities. We'll continue to follow Critical care evaluation that was done and more than 30 minutes
--- NOTE | 2021-01-26 09:00 | P.PN ---
Subjective Progress Note Date: 01/26/21 60-year-old female, well-known to our service. She has a history of asthma, and severe tracheomalacia. She typically sees my partner, Dr. Feng. She apparently presented to the emergency room today with complaints of shortness of breath, and stridor. The patient was evaluated in the emergency room, was found to have inspiratory stridor, and was intubated in the ER physician. She's currently on the mechanical ventilator. She is on the volume assist control mode rate is 16, tidal volume 400, FiO2 40%, and PEEP of 5. Initial gases on the same settings but 100%, show pO2 of greater than 400, pCO2 45, a pH is 7.47. Currently, blood pressure is 108/64, saturations are 100%. Heart rhythm is sinus with a rate of 56 bpm, respiratory rate is 16. She's getting propofol at 35 mcg/kg/m. She is getting saline at 75 mL an hour. She did get a liter fluid bolus of saline in the emergency department. She appears relatively stable. In addition, she has a history of CHF, CVA, GERD, hypertension, sleep apnea, and hypothyroidism. Her asthma is severe and persistent. 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 difficile colitis. Lab data includes a white count 15.2, hemoglobin 15.2, hematocrit 43.2, and platelet count is 272,000. PT INR are normal. PTT is normal. Blood gases have been mentioned. Sodium 139, potassium 4.1, chlorides 100, CO2 33, anion gap 6, BUN 27, and creatinine 1.22. In addition, a should be noted, that the patient was in the emergency room 9 days prior, and was diagnosed with COVID 19. She was treated with monoclonal antibodies and discharged on Decadron 6 mg, and an albuterol inhaler. On today's evaluation of 01/25/2021 the patient remains intubated on a mechanical ventilator secondary to COVID 19 related pneumonia. The patient is sedated with propofol and the patient is also chronic propofol at the rate of 40 mcg/kg per minute. The patient on assist control mode of ventilation with tidal volume of 400, FiO2 of 40% with a PEEP of 5 and the rate of 16. Chest x-ray is showing bilateral pulmonary infiltrates, mainly in the lung bases consistent with Covid 19 pneumonia. The patient's is currently also on IV fluids running at 75 mL's an hour. She is on Decadron 6 mg IV every 24 hours. The CRP is at 10.1. LDH is at 573. Creatinine is at 0.8. Electrolytes are all within normal limits. The patient is currently on Lovenox 40 mg subcu every 24 hours. The patient is on Decadron 6 mg IV every 24 hours. IV fluids at 75 mL an hour. Cardiac rhythm is sinus for now. The patient was infected with Covid 19 and the patient received monoclonal antibodies on outpatient basis. She was in the ED approximately 9 days ago receiving her treatment the patient was taken Decadron outpatient basis. On today's evaluation, the patient is resting comfortably on a mechanical ventilator. Peak airway pressures around 19. The patient remains on FiO2 of 40%. A blood gas from today showing a pH of 7.48 with a pCO2 of 43 and pO2 of 139. 01/26/2021 the patient was extubated successfully and the patient is currently on a BiPAP at a pressure of 16/8 cm of water with an FiO2 of 40%. She is able to generate a volume of 611 with a respiratory rate of 15 and a minute ventil ation is around 9.2. Her current pulse ox is 99%. She is awake and alert and she is following commands patient is a bit lethargic and weak. She is hemodynamically stable and she is also had a normal sinus rhythm. She has normal saline at the rate of 75 mL an hour. No other drips for now. The chest x-ray from today is not done. The labs from today is still pending for now. Otherwise the patient remains on Decadron 6 IV every 24 hours on Lovenox 40 mg subcu every 24 hours. The patient remains nothing by mouth. She is awake and alert and she is quite weak and she has generalized global muscle weakness. She is able to raise her arms against gravity. She has a positive cough. Mentation is alert and the patient was able to recognize me. Objective - Vital Signs Vital signs: Vital Signs Temp 98.6 F 01/25/21 21:00 Pulse 93 01/26/21 08:18 Resp 20 01/26/21 08:18 BP 154/86 04/13/21 08:18 Pulse Ox 100 01/26/21 08:18 Intake & Output 01/25/21 01/26/21 01/26/21 18:59 06:59 18:59 Intake Total 900 Output Total 850 Balance 50 Weight 111.811 kg Intake: Intake, IV Titration 900 Amount Sodium Chloride 0.9% 1, 900 000 ml @ 75 mls/hr IV . [id number] [facility] Rx#:[id number] Output: Urine 850 - Exam No acute distress, currently on a BiPAP and the patient is awake and alert, somewhat lethargic and weak and the patient is able to tolerate the BiPAP without any major difficulties. In fact she is requesting for the BiPAP to be taken off. HEENT examination is grossly unremarkable. The patient has an orally placed endotracheal tube. Neck supple. Full range of motion. No adenopathy thyromegaly or neck vein distention. Cardiovascular examination reveals regular rhythm rate. S1-S2 normal. No S3 or S4. No discernible murmur noted. Lungs reveal mostly clear breath sounds. Her sounds are equal bilaterally. A few scattered rhonchi are noted. No wheezes. Abdomen soft bowel sounds are heard. No masses or tenderness. Extremities are intact. No cyanosis clubbing or edema. Skin is without rash or lesion. Neurologic examination is nonfocal and the patient has generalized motor weakness in all 4 extremities. - Labs CBC & Chem 7: 01/25/21 03:55 01/25/21 03:55 Assessment and Plan Plan: 1 Acute hypoxemic respiratory failure, multifactorial, in part related to recent diagnosis of COVID 19 infection, severe persistent chronic bronchial asthma, and severe tracheomalacia. Patient was intubated in the emergency department on 01/24/2021. Chest x-ray showed limited inflammatory infiltrates in lung bases bilaterally. The patient was being treated with Decadron an outpatient basis. She also received monoclonal antibody still with Covid 19 infection. The patient is currently intubated on a mechanical ventilator and the patient sedated with propofol. A sore in the emergency department yesterday and I extubate this patient this morning she is on a BiPAP at a pressure of 16/8 cm of water and FiO2 of 40%. The patient is is quite comfortable. Chest x-ray and blood work is pending for now. 2 History of severe persistent chronic bronchial asthma. 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 4 History of CHF. 5 History of CVA. 6 Gastroesophageal reflux disease. 7 History of essential hypertension. 8 History of obstructive sleep apnea syndrome, currently on CPAP. 9 Hypothyroidism. 10 Vocal cord dysfunction. 11 History of C. difficile colitis. Plan: Keep the patient extubated Stop the BiPAP and put the patient on 5 L of oxygen by nasal cannula and titrate the flow to maintain a saturation above 90%. She can still use the BiPAP on and off during the day and especially at nighttime. The patient has a CPAP machine at home. Obtain chest x-ray and blood work Continued IV fluids at 75 mL an hour normal saline Continue Decadron 6 mg IV every 24 hours Move the patient to the intensive care unit Lovenox 40 mg subcu for DVT prophylaxis Vitamin C vitamin D and zinc oxide Swallow evaluation Condition is critical and prognosis is poor knowing her extensive comorbidities. We'll continue to follow Critical care evaluation that was done and more than 30 minutes
[2021-01-26 09:41] LABS: ALT 105 U/L (4-34); AST 43 U/L (14-36); African American GFR (CKD) >90 (>60 ml/min/1.73 sqM); Albumin 3.2 g/dL (3.5-5.0); Alkaline Phosphatase 97 U/L (38-126); Anion Gap 3 mmol/L; Blood Urea Nitrogen 30 mg/dL (7-17); C Reactive Protein 54.9 mg/L (<10.0); Calcium 8.2 mg/dL (8.4-10.2); Carbon Dioxide 29 mmol/L (22-30); Chloride 107 mmol/L (98-107); Glucose 97 mg/dL (74-99); LDH 391 U/L (313-618); Non-African American GFR(CKD) 79 (>60 ml/min/1.73 sqM); Potassium 3.7 mmol/L (3.5-5.1); Sodium 139 mmol/L (137-145); Total Bilirubin 1.1 mg/dL (0.2-1.3); Total Protein 5.8 g/dL (6.3-8.2)
--- NOTE | 2021-01-26 09:53 | XR ---
EXAMINATION TYPE: XR chest 1V portable DATE OF EXAM: 01/26/2021 Comparison: 01/24/2021 Clinical History: 60-year-old female covid Findings: Heart upper limits of normal in size. Mild scattered interstitial density. No consolidation or pleura l effusion. Impression: There may be some minimal scattered interstitial density that remains. No worsening opacities.
[2021-01-26] MEDS: DEXAMETHASONE SOD PHOSPHATE 10 MG/ML 1 ML VIAL IV SCH (10:30)
[2021-01-26] MEDS: ASCORBIC ACID 500 MG TAB PO SCH ×2 (10:30→10:31)
[2021-01-26] MEDS: PANTOPRAZOLE 40 MG/10 ML VIAL IV SCH (10:30)
[2021-01-26] MEDS: SODIUM CHLORIDE 0.9% 1,000 ML IV SCH (10:31)
[2021-01-26] MEDS: CHOLECALCIFEROL 25 MCG (1000 IU) TABLET PO SCH (10:31)
[2021-01-26] MEDS: ZINC SULFATE 220 MG CAP PO SCH (10:32)
[2021-01-26] MEDS: METOPROLOL TARTRATE 25 MG TAB PO SCH ×2 (10:32→22:26)
[2021-01-26 10:34] VITALS: BMI 39.7
[2021-01-26] MEDS: ENOXAPARIN 40 MG/0.4 ML SYRINGE SQ SCH (10:40)
--- NOTE | 2021-01-26 12:50 | CT ---
EXAMINATION TYPE: CT soft tissue neck wo con DATE OF EXAM: 01/26/2021 HISTORY: Inability to swallow. COMPARISON: None CT DLP: 389.2 mGycm. Automated Exposure Control for Dose Reduction was Utilized. TECHNIQUE: CT scan of the neck is performed without intravenous contrast, multiplanar reformatting p erformed FINDINGS: Lack of intravenous contrast could compromise sensitivity of the exam. Some dependent atele ctatic changes are present at the posterior upper lobes Airway: Mild asymmetric appearance of the piriform sinus could be due to patient positioning, equivoc al finding. Parotid/submandibular glands: No gross abnormality seen. Carotid/Vascular Structures: Not evaluated due to lack of contrast Osseous Structures: Degenerative disc changes are present in the visualized spine, spurring present a t C5-6 with associated loss of disc height. There is a spinal curvature. Other: Shotty nodes present along the cervical chains and superior mediastinum IMPRESSION: No significant abnormality is seen with certainty, nonspecific asymmetric appearance of the piriform sinus. Noncontrast exam, additional findings above
--- NOTE | 2021-01-26 13:40 | P.PN ---
Subjective Progress Note Date: 01/26/21 Patient is awake and alert today. She was successfully extubated and currently on oxygen by nasal cannula. She failed bedside swallow study. Vital signs stable. Objective - Vital Signs Vital signs: Vital Signs Temp 98.8 F 01/26/21 12:45 Pulse 101 H 01/26/21 12:45 Resp 16 01/26/21 12:45 BP 160/89 01/26/21 12:45 Pulse Ox 99 01/26/21 12:45 Intake & Output 01/25/21 01/26/21 01/26/21 18:59 06:59 18:59 Intake Total 900 Output Total 850 Balance 50 Weight 111.811 kg 111.811 kg Intake: Intake, IV Titration 900 Amount Sodium Chloride 0.9% 1, 900 000 ml @ 75 mls/hr IV . [id number] [facility] Rx#:[id number] Output: Urine 850 - Exam General: The patient is awake and alert, in no distress Eye: there is normal conjunctiva bilaterally. Neck: The neck is supple, there is no JVD. Cardiovascular: Normal S1-S2, no S3-S4, no murmurs. Respiratory: Lungs clear to anterior chest auscultation bilaterally Gastrointestinal: Abdomen is soft, nontender Musculoskeletal: There is no pedal edema. Neurological:. Speech is normal. Skin: Skin is warm and dry - Labs CBC & Chem 7: 01/25/21 03:55 01/26/21 09:10 Labs: Abnormal Lab Results - Last 24 Hours (Table) 01/26/21 01/26/21 Range/Units 09:10 09:10 D-Dimer 5.00 H (<0.60) mg/L FEU BUN 30 H (7-17) mg/dL Calcium 8.2 L (8.4-10.2) mg/dL AST 43 H (14-36) U/L ALT 105 H (4-34) U/L C-Reactive Protein 54.9 H (<10.0) mg/L Total Protein 5.8 L (6.3-8.2) g/dL Albumin 3.2 L (3.5-5.0) g/dL Assessment and Plan Assessment: This is a 60-year-old female who presented to the emergency room with worsening shortness of breath and increased work of breathing. Patient was evaluated in the ER and was found to have stridor and was eventually intubated. She'll be admitted to the ICU for further management of her medical problems noted below. 1. Acute hypoxic respiratory failure secondary to underlying tracheobronchomalacia: Patient was intubated and requiring mechanical ve ntilation for less than 24 hours. She was successfully extubated on 01/25. Pulmonology following closely. 2. Known underlying tracheobronchomalacia with history of paradoxic vocal cord activity: Seen and evaluated by ENT and pulmonology. Computed tomography scan soft tissue neck without contrast showed no acute findings. 3. Recent diagnosis of COVID-19 on 01/15: Continue vitamin C, vitamin D, and zinc supplement. Inflammatory markers within acceptable range 4. Underlying systolic heart failure: EF of 45%. No evidence of exacerbation 5. Obstructive sleep apnea 6. Hypothyroidism 7. DVT prophylaxis with subcu Lovenox Today, I reviewed her medication list and lab work results. Continue Decadron 6 mg IV daily. DuoNeb's every 6 hours. Gentle IV fluid hydration with normal saline at 75 mL per hour. Consult speech pathology for further evaluation
--- NOTE | 2021-01-26 21:45 | P.OP ---
Date of Procedure: 01/26/21 Preoperative Diagnosis: Inspiratory stridor Covid 19 Respiratory failure Postoperative Diagnosis: Same, paradoxical vocal cord movement Procedure(s) Performed: Direct microscopic flexible laryngoscopy Anesthesia: none Surgeon: Irineo Partida Estimated Blood Loss (ml): 0 Pathology: none sent Condition: stable Disposition: PACU Indications for Procedure: This patient suffered from inspiratory stridor and an upper airway evaluation was recommended and a consultation was requested. Operative Findings: Patient has a paradoxical vocal cord movement causing her inspiratory stridor. I do not see any evidence of subglottic stenosis or tracheomalacia Description of Procedure: Patient was placed in the upright position following Clomid protocol. A E NF type GP nasopharyngoscope was inserted into the patient's nose on the right and along the floor the nose was passed into the nasopharynx and oropharynx and hypopharynx. There was some hypopharyngeal inflammation from her previous extubation. Vocal cord movement was paradoxical. Examination of the airway subglottically and above reveals no signs of any structural blockage. No evidence of any tracheomalacia upon inspiration or coughing. There is some hypopharyngeal inflammation noted secondary to the intubation and coughing. Again, only paradoxical vocal cord movement was noted.
[2021-01-26] MEDS: MONTELUKAST 10 MG TAB PO SCH (22:27)
[2021-01-26] MEDS ORDERED: ACETAMINOPHEN TAB 325 MG TAB PO PRN (22:38)
[2021-01-27] MEDS: ALBUTEROL HFA INHALER INHALATION SCH ×6 (00:01→20:47)
[2021-01-27 06:13] LABS: Glucose,Whole Blood 80 mg/dL (75-99)
[2021-01-27] MEDS: LEVOTHYROXINE 50 MCG TAB PO SCH (06:15)
[2021-01-27] MEDS: METOPROLOL TARTRATE 25 MG TAB PO SCH ×2 (09:06→20:02)
[2021-01-27] MEDS: CHOLECALCIFEROL 25 MCG (1000 IU) TABLET PO SCH (09:06)
[2021-01-27] MEDS: ZINC SULFATE 220 MG CAP PO SCH (09:06)
[2021-01-27] MEDS: ASCORBIC ACID 500 MG TAB PO SCH (09:06)
[2021-01-27] MEDS: DEXAMETHASONE SOD PHOSPHATE 10 MG/ML 1 ML VIAL IV SCH (09:07)
[2021-01-27] MEDS: PANTOPRAZOLE 40 MG/10 ML VIAL IV SCH (09:08)
[2021-01-27] MEDS: ENOXAPARIN 40 MG/0.4 ML SYRINGE SQ SCH (09:08)
[2021-01-27 09:33] LABS: Potassium 3.9 mmol/L (3.5-5.1)
[2021-01-27 09:36] LABS: Albumin 3.4 g/dL (3.5-5.0); C Reactive Protein 46.2 mg/L (<10.0); Calcium 8.8 mg/dL (8.4-10.2); Total Bilirubin 1.2 mg/dL (0.2-1.3); Total Protein 6.1 g/dL (6.3-8.2)
--- NOTE | 2021-01-27 11:49 | XR ---
EXAMINATION TYPE: XR chest 1V portable DATE OF EXAM: 01/27/2021 COMPARISON: 01/26/2021 INDICATION: Short of breath,Covid TECHNIQUE: Single frontal view of the chest is obtained. FINDINGS: The heart size is normal. The pulmonary vasculature is normal. The lungs are clear. Previous infiltrates have resolved. Minimal residual left pleural fluid may be present. IMPRESSION: 1. No acute pulmonary process. Previous infiltrates have resolved. 2. Minimal left pleural effusion remaining present.
[2021-01-27 12:04] LABS: Glucose,Whole Blood 111 mg/dL (75-99)
--- NOTE | 2021-01-27 12:21 | P.PN ---
Subjective Progress Note Date: 01/27/21 60-year-old female, well-known to our service. She has a history of asthma, and severe tracheomalacia. She typically sees my partner, Dr. Feng. She apparently presented to the emergency room today with complaints of shortness of breath, and stridor. The patient was evaluated in the emergency room, was found to have inspiratory stridor, and was intubated in the ER physician. She's currently on the mechanical ventilator. She is on the volume assist control mode rate is 16, tidal volume 400, FiO2 40%, and PEEP of 5. Initial gases on the same settings but 100%, show pO2 of greater than 400, pCO2 45, a pH is 7.47. Currently, blood pressure is 108/64, saturations are 100%. Heart rhythm is sinus with a rate of 56 bpm, respiratory rate is 16. She's getting propofol at 35 mcg/kg/m. She is getting saline at 75 mL an hour. She did get a liter fluid bolus of saline in the emergency department. She appears relatively stable. In addition, she has a history of CHF, CVA, GERD, hypertension, sleep apnea, and hypothyroidism. Her asthma is severe and persistent. 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 difficile colitis. Lab data includes a white count 15.2, hemoglobin 15.2, hematocrit 43.2, and platelet count is 272,000. PT INR are normal. PTT is normal. Blood gases have been mentioned. Sodium 139, potassium 4.1, chlorides 100, CO2 33, anion gap 6, BUN 27, and creatinine 1.22. In addition, a should be noted, that the patient was in the emergency room 9 days prior, and was diagnosed with COVID 19. She was treated with monoclonal antibodies and discharged on Decadron 6 mg, and an albuterol inhaler. On today's evaluation of 01/25/2021 the patient remains intubated on a mechanical ventilator secondary to COVID 19 related pneumonia. The patient is sedated with propofol and the patient is also chronic propofol at the rate of 40 mcg/kg per minute. The patient on assist control mode of ventilation with tidal volume of 400, FiO2 of 40% with a PEEP of 5 and the rate of 16. Chest x-ray is showing bilateral pulmonary infiltrates, mainly in the lung bases consistent with Covid 19 pneumonia. The patient's is currently also on IV fluids running at 75 mL's an hour. She is on Decadron 6 mg IV every 24 hours. The CRP is at 10.1. LDH is at 573. Creatinine is at 0.8. Electrolytes are all within normal limits. The patient is currently on Lovenox 40 mg subcu every 24 hours. The patient is on Decadron 6 mg IV every 24 hours. IV fluids at 75 mL an hour. Cardiac rhythm is sinus for now. The patient was infected with Covid 19 and the patient received monoclonal antibodies on outpatient basis. She was in the ED approximately 9 days ago receiving her treatment the patient was taken Decadron outpatient basis. On today's evaluation, the patient is resting comfortably on a mechanical ventilator. Peak airway pressures around 19. The patient remains on FiO2 of 40%. A blood gas from today showing a pH of 7.48 with a pCO2 of 43 and pO2 of 139. 01/26/2021 the patient was extubated successfully and the patient is currently on a BiPAP at a pressure of 16/8 cm of water with an FiO2 of 40%. She is able to generate a volume of 611 with a respiratory rate of 15 and a minute ventil ation is around 9.2. Her current pulse ox is 99%. She is awake and alert and she is following commands patient is a bit lethargic and weak. She is hemodynamically stable and she is also had a normal sinus rhythm. She has normal saline at the rate of 75 mL an hour. No other drips for now. The chest x-ray from today is not done. The labs from today is still pending for now. Otherwise the patient remains on Decadron 6 IV every 24 hours on Lovenox 40 mg subcu every 24 hours. The patient remains nothing by mouth. She is awake and alert and she is quite weak and she has generalized global muscle weakness. She is able to raise her arms against gravity. She has a positive cough. Mentation is alert and the patient was able to recognize me. 01/27/2021, the patient is on 2 L and the patient is on a pulse ox of 97%. She is afebrile. She is resting comfortably in bed. She was not admitted to the intensive care unit. I extubate this patient in the emergency and ultimately she stated for another 24 hours and she was brought into the medical floor. LDH is low at 549 and the CRP is low at 6.1. D-dimer is at 3.0 and the patient remains on Decadron and the patient is also on Lovenox 40 mg subcu for DVT prophylaxis. She is sleepy. She is coughing also limited amount of sputum. IV fluids are running at times he is an hour and she is able to tolerate some applesauce . The patient is having frequent diarrhea without any nausea vomiting or abdominal pain. Objective - Vital Signs Vital signs: Vital Signs Temp 98.6 F 01/27/21 11:52 Pulse 86 01/27/21 11:52 Resp 16 01/27/21 11:52 BP 166/82 01/27/21 11:52 Pulse Ox 97 01/27/21 11:52 Intake & Output 01/26/21 01/27/21 01/27/21 18:59 06:59 18:59 Intake Total 200 118 Output Total 400 1600 600 Balance -400 -1400 -482 Weight 111.811 kg 109.5 kg Intake: Oral 200 118 Output: Urine 400 1600 600 Other: Voiding Method Indwelling Catheter Indwelling Catheter # Bowel Movements 2 - Exam No acute distress, 2 liters /min HEENT examination is grossly unremarkable. The patient has an orally placed endotracheal tube. Neck supple. Full range of motion. No adenopathy thyromegaly or neck vein distention. Cardiovascular examination reveals regular rhythm rate. S1-S2 normal. No S3 or S4. No discernible murmur noted. Lungs reveal mostly clear breath sounds. Her sounds are equal bilaterally. A few scattered rhonchi are noted. No wheezes. Abdomen soft bowel sounds are heard. No masses or tenderness. Extremities are intact. No cyanosis clubbing or edema. Skin is without rash or lesion. Neurologic examination is nonfocal and the patient has generalized motor weakness in all 4 extremities. - Labs CBC & Chem 7: 01/25/21 03:55 01/27/21 08:00 Labs: Abnormal Lab Results - Last 24 Hours (Table) 01/27/21 01/27/21 01/27/21 Range/Units 08:00 08:00 12:03 D-Dimer 3.04 H (<0.60) mg/L FEU BUN 23 H (7-17) mg/dL POC Glucose (mg/dL) 111 H (75-99) mg/dL ALT 75 H (4-34) U/L C-Reactive Protein 46.2 H (<10.0) mg/L Total Protein 6.1 L (6.3-8.2) g/dL Albumin 3.4 L (3.5-5.0) g/dL Assessment and Plan Plan: 1 Acute hypoxemic respiratory failure, multifactorial, in part related to recent diagnosis of COVID 19 infection, severe persistent chronic bronchial asthma, and severe tracheomalacia. Patient was intubated in the emergency department on 01/24/2021. Chest x-ray showed limited inflammatory infiltrates in lung bases bilaterally. The patient was being treated with Decadron an outpatient basis. She also received monoclonal antibody still with Covid 19 infection. The patient is currently intubated on a mechanical ventilator and the patient sedated with propofol. A sore in the emergency department yesterday and I extubate this patient to a BiPAP and later on she was weaned down to oxygen at 2 L. He is comfortable for now. No issues from the pulmonary standpoint the chest x-rays clear. 2 History of severe persistent chronic bronchial asthma. 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 4 History of CHF. 5 History of CVA. 6 Gastroesophageal reflux disease. 7 History of essential hypertension. 8 History of obstructive sleep apnea syndrome, currently on CPAP. 9 Hypothyroidism. 10 Vocal cord dysfunction. 11 History of C. difficile colitis. 12 diarrhea, rule out Covid 19 related diarrhea versus C. diff Plan: Oxygen at 2 L per minute nasal cannula CPAP/BiPAP overnight Chest x-ray findings are stable Switch Decadron 6 mg by mouth daily Lovenox for DVT prophylaxis 40 mg subcu Advance diet Stool for C. diff We'll continue to follow.
--- NOTE | 2021-01-27 13:27 | P.PN ---
Subjective Progress Note Date: 01/27/21 Patient is awake and alert. She is on 4 L of oxygen via nasal cannula. She reports some shortness of breath. No acute events overnight reported by nursing staff. Patient is currently on a pured diet. Objective - Vital Signs Vital signs: Vital Signs Temp 98.6 F 01/27/21 11:52 Pulse 86 01/27/21 11:52 Resp 16 01/27/21 11:52 BP 166/82 01/27/21 11:52 Pulse Ox 97 01/27/21 11:52 Intake & Output 01/26/21 01/27/21 01/27/21 18:59 06:59 18:59 Intake Total 200 118 Output Total 400 1600 600 Balance -400 -1400 -482 Weight 111.811 kg 109.5 kg Intake: Oral 200 118 Output: Urine 400 1600 600 Other: Voiding Method Indwelling Catheter Indwelling Catheter # Bowel Movements 2 - Exam General: The patient is awake and alert, in no distress Eye: there is normal conjunctiva bilaterally. Neck: The neck is supple, there is no JVD. Cardiovascular: Normal S1-S2, no S3-S4, no murmurs. Respiratory: Lungs scattered rhonchi Gastrointestinal: Abdomen is soft, nontender Musculoskeletal: There is no pedal edema. Neurological:. Speech is normal. Skin: Skin is warm and dry - Labs CBC & Chem 7: 01/25/21 03:55 01/27/21 08:00 Labs: Abnormal Lab Results - Last 24 Hours (Table) 01/27/21 01/27/21 01/27/21 Range/Units 08:00 08:00 12:03 D-Dimer 3.04 H (<0.60) mg/L FEU BUN 23 H (7-17) mg/dL POC Glucose (mg/dL) 111 H (75-99) mg/dL ALT 75 H (4-34) U/L C-Reactive Protein 46.2 H (<10.0) mg/L Total Protein 6.1 L (6.3-8.2) g/dL Albumin 3.4 L (3.5-5.0) g/dL Assessment and Plan Assessment: This is a 60-year-old female who presented to the emergency room with worsening shortness of breath and increased work of breathing. Patient was evaluated in the ER and was found to have stridor and was eventually intubated. She'll be admitted to the ICU for further management of her medical problems noted below. 1. Acute hypoxic respiratory failure secondary to underlying tracheobronchomalacia: Patient was intubated and requiring mechanical ventilation for less than 24 hours. She was successfully extubated on 01/25. Pulmonology following closely. 2. Known underlying tracheobronchomalacia with history of paradoxic vocal cord activity: Seen and evaluated by ENT and pulmonology. Computed tomography scan soft tissue neck without contrast showed no acute findings. Patient underwent a flexible laryngoscopy showing evidence of vocal cord movement causing inspiratory stridor 3. Recent diagnosis of COVID-19 on 01/15: Continue vitamin C, vitamin D, and zinc supplement. Inflammatory markers within acceptable range 4. Underlying systolic heart failure: EF of 45%. No evidence of exacerbation 5. Obstructive sleep apnea 6. Hypothyroidism 7. DVT prophylaxis with subcu Lovenox Today, I reviewed her medication list and lab work results. Continue Decadron mg IV daily. DuoNeb's every 6 hours. Discontinue IV fluid Speech pathology following, appreciate recommendations
[2021-01-27 16:50] LABS: Glucose,Whole Blood 104 mg/dL (75-99)
[2021-01-27] MEDS: MONTELUKAST 10 MG TAB PO SCH (20:03)
[2021-01-27 20:16] LABS: Glucose,Whole Blood 108 mg/dL (75-99)
[2021-01-28] MEDS: ALBUTEROL HFA INHALER INHALATION SCH ×4 (00:26→12:06)
[2021-01-28 06:22] LABS: Glucose,Whole Blood 83 mg/dL (75-99)
[2021-01-28] MEDS: LEVOTHYROXINE 50 MCG TAB PO SCH (06:35)
[2021-01-28] MEDS: CHOLECALCIFEROL 25 MCG (1000 IU) TABLET PO SCH (08:43)
[2021-01-28] MEDS: ZINC SULFATE 220 MG CAP PO SCH (08:43)
[2021-01-28] MEDS: METOPROLOL TARTRATE 25 MG TAB PO SCH (08:43)
[2021-01-28] MEDS: ASCORBIC ACID 500 MG TAB PO SCH (08:43)
[2021-01-28] MEDS: ENOXAPARIN 40 MG/0.4 ML SYRINGE SQ SCH (08:43)
[2021-01-28] MEDS: PANTOPRAZOLE 40 MG/10 ML VIAL IV SCH (08:44)
[2021-01-28] MEDS ORDERED: dexAMETHasone 2 MG TAB PO SCH (09:00)
[2021-01-28 09:01] VITALS: RESP 20; TEMP 98.4
--- NOTE | 2021-01-28 11:54 | P.PN ---
Subjective Progress Note Date: 01/28/21 60-year-old female, well-known to our service. She has a history of asthma, and severe tracheomalacia. She typically sees my partner, Dr. Feng. She apparently presented to the emergency room today with complaints of shortness of breath, and stridor. The patient was evaluated in the emergency room, was found to have inspiratory stridor, and was intubated in the ER physician. She's currently on the mechanical ventilator. She is on the volume assist control mode rate is 16, tidal volume 400, FiO2 40%, and PEEP of 5. Initial gases on the same settings but 100%, show pO2 of greater than 400, pCO2 45, a pH is 7.47. Currently, blood pressure is 108/64, saturations are 100%. Heart rhythm is sinus with a rate of 56 bpm, respiratory rate is 16. She's getting propofol at 35 mcg/kg/m. She is getting saline at 75 mL an hour. She did get a liter fluid bolus of saline in the emergency department. She appears relatively stable. In addition, she has a history of CHF, CVA, GERD, hypertension, sleep apnea, and hypothyroidism. Her asthma is severe and persistent. 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 difficile colitis. Lab data includes a white count 15.2, hemoglobin 15.2, hematocrit 43.2, and platelet count is 272,000. PT INR are normal. PTT is normal. Blood gases have been mentioned. Sodium 139, potassium 4.1, chlorides 100, CO2 33, anion gap 6, BUN 27, and creatinine 1.22. In addition, a should be noted, that the patient was in the emergency room 9 days prior, and was diagnosed with COVID 19. She was treated with monoclonal antibodies and discharged on Decadron 6 mg, and an albuterol inhaler. On today's evaluation of 01/25/2021 the patient remains intubated on a mechanical ventilator secondary to COVID 19 related pneumonia. The patient is sedated with propofol and the patient is also chronic propofol at the rate of 40 mcg/kg per minute. The patient on assist control mode of ventilation with tidal volume of 400, FiO2 of 40% with a PEEP of 5 and the rate of 16. Chest x-ray is showing bilateral pulmonary infiltrates, mainly in the lung bases consistent with Covid 19 pneumonia. The patient's is currently also on IV fluids running at 75 mL's an hour. She is on Decadron 6 mg IV every 24 hours. The CRP is at 10.1. LDH is at 573. Creatinine is at 0.8. Electrolytes are all within normal limits. The patient is currently on Lovenox 40 mg subcu every 24 hours. The patient is on Decadron 6 mg IV every 24 hours. IV fluids at 75 mL an hour. Cardiac rhythm is sinus for now. The patient was infected with Covid 19 and the patient received monoclonal antibodies on outpatient basis. She was in the ED approximately 9 days ago receiving her treatment the patient was taken Decadron outpatient basis. On today's evaluation, the patient is resting comfortably on a mechanical ventilator. Peak airway pressures around 19. The patient remains on FiO2 of 40%. A blood gas from today showing a pH of 7.48 with a pCO2 of 43 and pO2 of 139. 01/26/2021 the patient was extubated successfully and the patient is currently on a BiPAP at a pressure of 16/8 cm of water with an FiO2 of 40%. She is able to generate a volume of 611 with a respiratory rate of 15 and a minute ventil ation is around 9.2. Her current pulse ox is 99%. She is awake and alert and she is following commands patient is a bit lethargic and weak. She is hemodynamically stable and she is also had a normal sinus rhythm. She has normal saline at the rate of 75 mL an hour. No other drips for now. The chest x-ray from today is not done. The labs from today is still pending for now. Otherwise the patient remains on Decadron 6 IV every 24 hours on Lovenox 40 mg subcu every 24 hours. The patient remains nothing by mouth. She is awake and alert and she is quite weak and she has generalized global muscle weakness. She is able to raise her arms against gravity. She has a positive cough. Mentation is alert and the patient was able to recognize me. 01/27/2021, the patient is on 2 L and the patient is on a pulse ox of 97%. She is afebrile. She is resting comfortably in bed. She was not admitted to the intensive care unit. I extubate this patient in the emergency and ultimately she stated for another 24 hours and she was brought into the medical floor. LDH is low at 549 and the CRP is low at 6.1. D-dimer is at 3.0 and the patient remains on Decadron and the patient is also on Lovenox 40 mg subcu for DVT prophylaxis. She is sleepy. She is coughing also limited amount of sputum. IV fluids are running at times he is an hour and she is able to tolerate some applesauce . The patient is having frequent diarrhea without any nausea vomiting or abdominal pain. 01/28/2021 the patient is on room air oxygen. She is doing extremely well. She is able to talk. No significant respiratory distress. No fever. No chills. She remains on Lovenox 40 mg subcu daily. She remains on Decadron 6 mg on a daily basis. No other new complaints otherwise for now. No nausea. No vomitin g. No diarrhea. No altered mentation. Her night was essentially uneventful. Her d-dimer is at 3.06 and had LDH levels at 583 and the CRP is at 25. Objective - Vital Signs Vital signs: Vital Signs Temp 98.4 F 01/28/21 08:00 Pulse 76 01/28/21 08:00 Resp 20 01/28/21 08:00 BP 128/69 01/28/21 08:00 Pulse Ox 98 01/28/21 08:00 Intake & Output 01/27/21 01/28/21 01/28/21 18:59 06:59 18:59 Intake Total 354 560 Output Total 1125 500 400 Balance -771 -500 160 Weight 107 kg Intake: Oral 354 560 Output: Urine 1125 500 400 Other: Voiding Method Indwelling Catheter # Voids 1 # Bowel Movements 1 - Exam No acute distress, on room air oxygen HEENT examination is grossly unremarkable. The patient has an orally placed endotracheal tube. Neck supple. Full range of motion. No adenopathy thyromegaly or neck vein dist ention. Cardiovascular examination reveals regular rhythm rate. S1-S2 normal. No S3 or S4. No discernible murmur noted. Lungs reveal mostly clear breath sounds. Her sounds are equal bilaterally. A few scattered rhonchi are noted. No wheezes. Abdomen soft bowel sounds are heard. No masses or tenderness. Extremities are intact. No cyanosis clubbing or edema. Skin is without rash or lesion. Neurologic examination is nonfocal and the patient has generalized motor weakness in all 4 extremities. - Labs CBC & Chem 7: 01/25/21 03:55 01/27/21 08:00 Labs: Abnormal Lab Results - Last 24 Hours (Table) 01/27/21 01/27/21 01/27/21 Range/Units 12:03 16:48 20:15 D-Dimer (<0.60) mg/L FEU POC Glucose (mg/dL) 111 H 104 H 108 H (75-99) mg/dL C-Reactive Protein (<10.0) mg/L 01/28/21 01/28/21 Range/Units 09:21 09:21 D-Dimer 3.06 H (<0.60) mg/L FEU POC Glucose (mg/dL) (75-99) mg/dL C-Reactive Protein 25.0 H (<10.0) mg/L Assessment and Plan Plan: 1 Acute hypoxemic respiratory failure, multifactorial, in part related to recent diagnosis of COVID 19 infection, severe persistent chronic bronchial asthma, and severe tracheomalacia. Patient was intubated in the emergency department on 01/24/2021. Chest x-ray showed limited inflammatory infiltrates in lung bases bilaterally. The patient was being treated with Decadron an outpatient basis. She also received monoclonal antibody still with Covid 19 infection. The patient is currently intubated on a mechanical ventilator and the patient sedated with propofol. A sore in the emergency department yesterday and I extubate this patient to a BiPAP and later on she was weaned down to oxygen at 2 L. the patient is further weaning down to room air oxygen and she is feeling great. She is even being contemplated for discharge. 2 History of severe persistent chronic bronchial asthma. 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 4 History of CHF. 5 History of CVA. 6 Gastroesophageal reflux disease. 7 History of essential hypertension. 8 History of obstructive sleep apnea syndrome, currently on CPAP. 9 Hypothyroidism. 10 Vocal cord dysfunction. 11 History of C. difficile colitis. 12 diarrhea, rule out Covid 19 related diarrhea versus C. diff Plan: The patient can be discharged home on Decadron to complete a 10 day course at 6 mg by mouth daily Will need probably a low-dose Xarelto 10 mg for the next 30 days as the patient has comorbidities and she is quite sedentary CPAP/BiPAP overnight Advance diet Tylenol for Covid related headaches and avoid intake of nonsteroidal anti- inflammatory medications We'll continue to follow. She can go home and I Followed up on outpatient basis.
[2021-01-28 12:09] VITALS: BP 149/87; PULSE 75
[2021-01-28 12:20] LABS: Glucose,Whole Blood 92 mg/dL (75-99)
--- NOTE | 2021-01-28 12:54 | P.DS ---
Providers Date of admission: 01/24/21 10:57 Expected date of discharge: 01/28/21 Attending physician: Viviana Blanco Consults: 01/24/21 10:54 Consult Physician Routine Consulting Provider: Lucius Rollins Consult Reason/Comments: stridor, hx of tracheomalacia Do you want consulting provider notified?: Yes 01/24/21 10:57 Consult Physician Stat Consulting Provider: Sanjay Winston Consult Reason/Comments: icu patient Do you want consulting provider notified?: Already Contacted Primary care physician: Ramila Soliz [facility] Hospital Course: This is a 60-year-old female who presented to the emergency room with worsening shortness of breath and increased work of breathing. Patient was evaluated in the ER and was found to have stridor and was eventually intubated. She'll be admitted to the ICU for further management of her medical problems noted below. 1. Acute hypoxic respiratory failure secondary to underlying tracheobronchomalacia: Patient was intubated and requiring mechanical ventilation for less than 24 hours. She was successfully extubated on 01/25. 2. Known underlying tracheobronchomalacia with history of paradoxic vocal cord activity: Seen and evaluated by ENT and pulmonology. Computed tomography scan soft tissue neck without contrast showed no acute findings. Patient underwent a flexible laryngoscopy showing evidence of vocal cord movement causing inspiratory stridor 3. Recent diagnosis of COVID-19 on 01/15: Continue vitamin C, vitamin D, and zinc supplement. Inflammatory markers within acceptable range 4. Underlying systolic heart failure: EF of 45%. No evidence of exacerbation 5. Obstructive sleep apnea 6. Hypothyroidism Patient's overall condition improved significantly throughout her hospital stay. On the day of discharge patient was able to ambulate with physical therapy. She did not require any oxygen. She was cleared by pulmonology for discharge. Recommended low dose of Rivaroxaban for VTE prophylaxis for 30 days. Follow-up in the office as directed. Patient Condition at Discharge: Stable Plan - Discharge Summary Discharge Rx Participant: No New Discharge Prescriptions: New dexAMETHasone ORAL [Hexadrol] 6 mg PO DAILY #5 tab Rivaroxaban [Xarelto] 10 mg PO DAILY 30 Days #30 tab Continue EPINEPHrine (Auto Inject) [Epipen] 0.3 mg IM ONCE PRN PRN Reason: Anaphylaxis Ascorbic Acid [Vitamin C] 500 mg PO DAILY Albuterol Sulfate [Proair Hfa] 1 - 2 puff INHALATION RT-Q4H PRN PRN Reason: Shortness Of Breath Zinc 50 mg PO DAILY Magnesium Oxide [Mag-Ox] 250 mg PO DAILY Potassium Chloride [Klor-Con 20] 20 meq PO DAILY Furosemide [Lasix] 40 mg PO BID@0700,1500 Montelukast [Singulair] 10 mg PO HS Levothyroxine Sodium [Synthroid] 50 mcg PO DAILY Metoprolol Tartrate [Lopressor] 25 mg PO BID Cholecalciferol [Vitamin D3 (25 Mcg = 1000 Iu)] 5,000 unit PO DAILY L.acidoph,Paracasei, B.lactis [Probiotic] 1 cap PO DAILY Diphenox-Atrop 2.5-0.025 mg [Lomotil] 1 tab PO QID PRN PRN Reason: Diarrhea Dicyclomine [Bentyl] 20 mg PO TID PRN PRN Reason: IBS Ipratropium-Albuterol Nebulize [Duoneb 0.5 mg-3 mg/3 ml Soln] 3 ml INHALATION RT-QID PRN PRN Reason: Shortness Of Breath Calcium Carbonate [Calcium] 600 mg PO DAILY Fluticasone/Vilanterol [Breo Ellipta 200-25 Mcg INH] 1 puff INHALATION RT- DAILY Albuterol Inhaler [Ventolin Hfa Inhaler] 2 puff INHALATION QID #1 puff ALPRAZolam [Xanax] 0.5 mg PO TID PRN PRN Reason: Anxiety Famotidine [Pepcid] 40 mg PO HS Tiotropium Chester [Spiriva Respimat] 2 puff INHALATION RT-DAILY Discontinued Dexamethasone [Decadron] 6 mg PO DAILY #7 tablet Discharge Medication List Albuterol Sulfate [Proair Hfa] 1 - 2 puff INHALATION RT-Q4H PRN 04/11/14 [History] Ascorbic Acid [Vitamin C] 500 mg PO DAILY 04/11/14 [History] EPINEPHrine (Auto Inject) [Epipen] 0.3 mg IM ONCE PRN 04/11/14 [History] Zinc 50 mg PO DAILY 04/11/14 [History] Magnesium Oxide [Mag-Ox] 250 mg PO DAILY 12/18/14 [History] Furosemide [Lasix] 40 mg PO BID@0700,1500 04/22/15 [History] Potassium Chloride [Klor-Con 20] 20 meq PO DAILY 04/22/15 [History] Montelukast [Singulair] 10 mg PO HS 12/21/15 [History] Levothyroxine Sodium [Synthroid] 50 mcg PO DAILY 03/03/16 [History] Metoprolol Tartrate [Lopressor] 25 mg PO BID 01/09/17 [History] Cholecalciferol [Vitamin D3 (25 Mcg = 1000 Iu)] 5,000 unit PO DAILY 09/10/17 [History] L.acidoph,Paracasei, B.lactis [Probiotic] 1 cap PO DAILY 09/10/17 [History] Dicyclomine [Bentyl] 20 mg PO TID PRN 12/15/18 [History] Diphenox-Atrop 2.5-0.025 mg [Lomotil] 1 tab PO QID PRN 12/15/18 [History] Ipratropium-Albuterol Nebulize [Duoneb 0.5 mg-3 mg/3 ml Soln] 3 ml INHALATION RT-QID PRN 12/15/18 [History] ALPRAZolam [Xanax] 0.5 mg PO TID PRN 01/15/21 [History] Albuterol Inhaler [Ventolin Hfa Inhaler] 2 puff INHALATION QID #1 puff 01/15/21 [Rx] Calcium Carbonate [Calcium] 600 mg PO DAILY 01/15/21 [History] Famotidine [Pepcid] 40 mg PO HS 01/15/21 [History] Fluticasone/Vilanterol [Breo Ellipta 200-25 Mcg INH] 1 puff INHALATION RT-DAILY 01/15/21 [History] Tiotropium Chester [Spiriva Respimat] 2 puff INHALATION RT-DAILY 01/24/21 [History] Rivaroxaban [Xarelto] 10 mg PO DAILY 30 Days #30 tab 01/28/21 [Rx] dexAMETHasone ORAL [Hexadrol] 6 mg PO DAILY #5 tab 01/28/21 [Rx] Follow up Appointment(s)/Referral(s): Ramila Soliz NPC [Primary Care Provider] - 1-2 days Nadeen Feng MD [STAFF PHYSICIAN] - 2 Weeks Discharge Disposition: HOME WITH HOME HEALTH SERVICES
[2021-01-29] MEDS ORDERED: PANTOPRAZOLE 40 MG TABLET PO SCH (07:30)
== END 2021-01-28 15:53 | disposition home health service (06) | DRG 208 ==
LOC: EC 09:59 → 2SICU 10:57 → 3SCARD 01-26 09:14
PROVIDERS: ADMIT Internal Medicine; ATTEND Internal Medicine
PROC: 5A1945Z Respiratory Ventilation, 24-96 Consecutive Hours (ICD-10-PCS; principal; 2021-01-24)
PROC: 0BH17EZ Insertion of Endotracheal Airway into Trachea, Via Natural or Artificial Opening (ICD-10-PCS; principal; 2021-01-24)
PROC: 0CJS8ZZ Inspection of Larynx, Via Natural or Artificial Opening Endoscopic (ICD-10-PCS; 2021-01-26)
DX: U07.1 COVID-19 (principal); J96.01 Acute respiratory failure with hypoxia; I50.22 Chronic systolic (congestive) heart failure; J44.9 Chronic obstructive pulmonary disease, unspecified; I11.0 Hypertensive heart disease with heart failure; K21.9 Gastro-esophageal reflux disease without esophagitis; J45.50 Severe persistent asthma, uncomplicated; F41.9 Anxiety disorder, unspecified; M41.9 Scoliosis, unspecified; E03.9 Hypothyroidism, unspecified; E66.9 Obesity, unspecified; J39.8 Other specified diseases of upper respiratory tract; J38.3 Other diseases of vocal cords; G47.33 Obstructive sleep apnea (adult) (pediatric); Z98.51 Tubal ligation status; Z86.73 Personal history of transient ischemic attack (TIA), and cerebral infarction without residual deficits; Z90.49 Acquired absence of other specified parts of digestive tract; Z86.19 Personal history of other infectious and parasitic diseases; Z82.3 Family history of stroke; Z82.49 Family history of ischemic heart disease and other diseases of the circulatory system; Z80.3 Family history of malignant neoplasm of breast; Z82.61 Family history of arthritis; Z88.2 Allergy status to sulfonamides; Z88.8 Allergy status to other drugs, medicaments and biological substances; Z88.1 Allergy status to other antibiotic agents; Z91.030 Bee allergy status; Z91.010 Allergy to peanuts; Z79.890 Hormone replacement therapy; Z79.899 Other long term (current) drug therapy; Z79.51 Long term (current) use of inhaled steroids
CPT/HCPCS: 31500; 36415; 36600; 70490; 71045; 80048; 80053; 82728; 82805; 83615; 83735; 85025; 85379; 85610; 85730; 86140; 87324; 93005; 94002; 94003; 94640; 94660; 94760; 96361; 96374; 96375; 99291

== ENCOUNTER 2021-05-28 11:10 | Emergency (ER) | payer BC ==
[2021-05-28 11:37] VITALS: TEMP 98.9
[2021-05-28] MEDS ORDERED: HYDROcodone/APAP 5-325MG 1 EACH TAB PO STA (11:55)
--- NOTE | 2021-05-28 11:59 | ED ---
General Adult HPI - General Chief complaint: Extremity Problem,Nontraumatic Stated complaint: Possible blood clot Source: patient, RN notes reviewed Mode of arrival: wheelchair Limitations: no limitations - History of Present Illness Initial comments: 60-year-old white female, alert and oriented 4, presents to the emergency room with complaints of right calf pain. Patient states has been hurting her for about 10 days and she's been using [id number] icy hot with no relief. 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 She also states she has a history of knee problems and was told she may need repeat knee replacements however she did not have the insurance. She is no longer on Coumadin. She states the pain is behind her knee and her right calf and shoots upward to her mid thigh. She denies any injuries. She has strong right pedal pulses. -: days(s) (10) Location: lower extremity (Right) Radiation: proximal (From knee to mid thigh) Severity scale (1-10): 5 Quality: sharp Consistency: intermittent Improves with: none Worsens with: none Associated Symptoms: denies other symptoms Treatments Prior to Arrival: other (icy hot) - Related Data Home Medications Medication Instructions Recorded Confirmed Albuterol Sulfate [Proair Hfa] 1 - 2 puff INHALATION RT-Q4H PRN 04/11/14 01/24/21 Ascorbic Acid [Vitamin C] 500 mg PO DAILY 04/11/14 01/24/21 EPINEPHrine (Auto Inject) [Epipen] 0.3 mg IM ONCE PRN 04/11/14 01/24/21 Zinc 50 mg PO DAILY 04/11/14 01/24/21 Magnesium Oxide [Mag-Ox] 250 mg PO DAILY 12/18/14 01/24/21 Furosemide [Lasix] 40 mg PO BID@0700,1500 04/22/15 01/24/21 Potassium Chloride [Klor-Con 20] 20 meq PO DAILY 04/22/15 01/24/21 Montelukast [Singulair] 10 mg PO HS 12/21/15 01/24/21 Levothyroxine Sodium [Synthroid] 50 mcg PO DAILY 03/03/16 01/24/21 Metoprolol Tartrate [Lopressor] 25 mg PO BID 01/09/17 01/24/21 Cholecalciferol [Vitamin D3 (25 5,000 unit PO DAILY 09/10/17 01/24/21 Mcg = 1000 Iu)] L.acidoph,Paracasei, B.lactis 1 cap PO DAILY 09/10/17 01/24/21 [Probiotic] Dicyclomine [Bentyl] 20 mg PO TID PRN 12/15/18 01/24/21 Diphenox-Atrop 2.5-0.025 mg 1 tab PO QID PRN 12/15/18 01/24/21 [Lomotil] Ipratropium-Albuterol Nebulize 3 ml INHALATION RT-QID PRN 12/15/18 01/24/21 [Duoneb 0.5 mg-3 mg/3 ml Soln] ALPRAZolam [Xanax] 0.5 mg PO TID PRN 01/15/21 01/24/21 Calcium Carbonate [Calcium] 600 mg PO DAILY 01/15/21 01/24/21 Famotidine [Pepcid] 40 mg PO HS 01/15/21 01/24/21 Fluticasone/Vilanterol [Breo 1 puff INHALATION RT-DAILY 01/15/21 01/24/21 Ellipta 200-25 Mcg INH] Tiotropium Etoile [Spiriva 2 puff INHALATION RT-DAILY 01/24/21 01/24/21 Respimat] Previous Rx's Medication Instructions Recorded Albuterol Inhaler [Ventolin Hfa 2 puff INHALATION QID #1 puff 01/15/21 Inhaler] Rivaroxaban [Xarelto] 10 mg PO DAILY 30 Days #30 tab 01/28/21 dexAMETHasone ORAL [Hexadrol] 6 mg PO DAILY #5 tab 01/28/21 Allergies Allergy/AdvReac Type Severity Reaction Status Date / Time Aminoglycosides Allergy Unknown Verified 05/28/21 11:37 honey Allergy Anaphylaxis Verified 05/28/21 11:37 moxifloxacin HCl Allergy Unknown Verified 05/28/21 11:37 [From Avelox] peanut Allergy Anaphylaxis Verified 05/28/21 11:37 azithromycin [From Zithromax] AdvReac Nausea & Verified 05/28/21 11:37 Vomiting & Diarrhea clindamycin AdvReac Dyspnea Verified 05/28/21 11:37 levofloxacin [From Levaquin] AdvReac Dyspnea Verified 05/28/21 11:37 neomycin [Neomycin] AdvReac Dyspnea Verified 05/28/21 11:37 omalizumab [From Xolair] AdvReac Dyspnea Verified 05/28/21 11:37 sulfamethoxazole AdvReac Diarrhea/co Verified 05/28/21 11:37 [From Bactrim] litis trimethoprim [From Bactrim] AdvReac Diarrhea/co Verified 05/28/21 11:37 litis Review of Systems ROS Statement: Those systems with pertinent positive or pertinent negative responses have been documented in the HPI. ROS Other: All systems not noted in ROS Statement are negative. Past Medical History Past Medical History: Asthma, Heart Failure, COPD, CVA/TIA, Deep Vein Thrombosis (DVT), GERD/Reflux, Hypertension, Osteoarthritis (OA), Respiratory Disorder, Sleep Apnea/CPAP/BIPAP, Syncope, Thyroid Disorder Additional Past Medical History / Comment(s): 01/15/21 pt tested covid + at [facility]. Other hx: Paradoxical vocal cord function/episodic dysphonia, dysphagia, tracheobronchial malasia, severe persistent bronchial asthma, ARAMIS with Cpap, TIA, scoliosis/spondylosis, neuropathy bilateral lower legs/feet, anemia, lower GI bleed, Cdiff colitis, hiatal hernia, tachycardia, hypothyroid History of Any Multi-Drug Resistant Organisms: C-DIFF Date of last positivie culture/infection: 04/22/15 MDRO Source:: stool Past Surgical History: Breast Surgery, Cholecystectomy, Heart Catheterization, Orthopedic Surgery, Tubal Ligation, Uterine Ablation Additional Past Surgical History / Comment(s): Multiple bronchoscopies, colonoscopy with benign polypectomy, bowel resection d/t perforation during colonoscopy, cyst removed near esophagus, vocal cords scrapped, L breast benign bx, D&C, bilateral knee arthroscopies with R side done twice, R arm tendon release. Past Anesthesia/Blood Transfusion Reactions: Postoperative Nausea & Vomiting (PONV) Additional Past Anesthesia/Blood Transfusion Reaction / Comment(s): Pt has never recieved blood. Past Psychological History: Anxiety Smoking Status: Never smoker Past Alcohol Use History: None Reported Past Drug Use History: None Reported - Past Family History Father Family Medical History: Cancer, Congestive Heart Failure (CHF), CVA/TIA, Myocardial Infarction (DE), Prostate Disorder Additional Family Medical History / Comment(s): at age 84- chocked on a hot dog Mother Family Medical History: Cancer, Osteoarthritis (OA) Additional Family Medical History / Comment(s): Breast cancer General Exam Limitations: no limitations General appearance: alert, in no apparent distress Head exam: Present: atraumatic, normocephalic, normal inspection Eye exam: Present: normal appearance, PERRL, EOMI. Absent: scleral icterus, conjunctival injection, periorbital swelling ENT exam: Present: normal exam, normal oropharynx, mucous membranes moist Neck exam: Present: normal inspection, full ROM. Absent: tenderness, meningismus, lymphadenopathy Respiratory exam: Present: stridor (Chronic tracheomalacia). Absent: respiratory distress, wheezes, chest wall tenderness, accessory muscle use, decreased breath sounds Cardiovascular Exam: Present: regular rate. Absent: JVD GI/Abdominal exam: Present: soft, normal bowel sounds. Absent: distended, tenderness, guarding, rebound, rigid Extremities exam: Present: normal inspection, full ROM, normal capillary refill, calf tenderness (Right calf). Absent: pedal edema, joint swelling Back exam: Present: full ROM. Absent: tenderness, CVA tenderness (R), CVA tenderness (L), muscle spasm, paraspinal tenderness, vertebral tenderness Neurological exam: Present: alert, oriented X3, CN II-XII intact Psychiatric exam: Present: normal affect, normal mood Skin exam: Present: warm, dry, intact, normal color. Absent: rash, cyanosis, diaphoretic, pallor Course Vital Signs 05/28/21 05/28/21 11:30 13:35 Temperature 98.9 F Pulse Rate 88 77 Respiratory 20 18 Rate Blood Pressure 165/90 145/87 O2 Sat by Pulse 98 99 Oximetry Medical Decision Making - Medical Decision Making Patient has a history of DVTs however today the ultrasound is negative. She has good pedal pulses with no significant swelling to the right leg. Patient states that she does have history of arthritis in both knees and was told she may need knee replacements. She also has a history of sciatica. She started using her ankle braces recently which may be treating her leg pain. She was directed to follow with her primary care doctor and given her a referral to orthopedics. Case discussed with Dr. Plata. Disposition Clinical Impression: Right leg pain Disposition: HOME SELF-CARE Instructions (If sedation given, give patient instructions): Leg Pain (ED) Additional Instructions: Follow-up with the primary care doctor next week. Return with any worsening symptoms or increasing pain. Is patient prescribed a controlled substance at d/c from ED?: No Referrals: Ramila Soliz NPC [REFERRING] - 1-2 days Catrachito Barajas PAC [PHYSICIAN JAVA SOFTWARE ENGINEER] - 1-2 days Time of Disposition: 13:27
--- NOTE | 2021-05-28 12:41 | US ---
EXAMINATION TYPE: US venous doppler duplex LE RT DATE OF EXAM: 05/28/2021 12:22 PM COMPARISON: US bilateral 2016 CLINICAL HISTORY: pain. Right leg pain SIDE PERFORMED: Right TECHNIQUE: The lower extremity deep venous system is examined utilizing real time linear array sonog kinjal with graded compression, doppler sonography and color-flow sonography. VESSELS IMAGED: Common Femoral Vein Deep Femoral Vein Greater Saphenous Vein * Femoral Vein Popliteal Vein Small Saphenous Vein * Proximal Calf Veins (* superficial vessels) Right Leg: Negative for DVT, please note also no evidence of Murillo's Cyst right pop fossa Grayscale, color doppler, spectral doppler imaging performed of the deep veins of the right lower ext remity. There is normal flow, compressibility, vascular waveforms. IMPRESSION: No ultrasound evidence for acute DVT in the right lower extremity. No popliteal cyst not ed in the end of study.
[2021-05-28 13:36] VITALS: BP 145/87; PULSE 77; RESP 18
== END 2021-05-28 13:44 | disposition home or self-care (01) ==
LOC: EC 11:10
DX: M79.661 Pain in right lower leg (principal); I11.0 Hypertensive heart disease with heart failure; I50.9 Heart failure, unspecified; J45.909 Unspecified asthma, uncomplicated; K21.9 Gastro-esophageal reflux disease without esophagitis; M19.90 Unspecified osteoarthritis, unspecified site; E03.9 Hypothyroidism, unspecified; F41.9 Anxiety disorder, unspecified; E07.9 Disorder of thyroid, unspecified; Z86.718 Personal history of other venous thrombosis and embolism; Z88.2 Allergy status to sulfonamides; Z88.1 Allergy status to other antibiotic agents; Z86.73 Personal history of transient ischemic attack (TIA), and cerebral infarction without residual deficits; Z86.16 Personal history of COVID-19; Z90.49 Acquired absence of other specified parts of digestive tract; Z98.51 Tubal ligation status
CPT/HCPCS: 99283

== ENCOUNTER 2021-10-07 07:39 | Emergency (ER) | payer BC ==
[2021-10-07] MEDS ORDERED: SODIUM CHLORIDE 0.9% 500 ML 500 ML IV STA (07:58)
[2021-10-07] MEDS ORDERED: SODIUM CHLORIDE 0.9% 1,000 ML IV STA (07:58)
--- NOTE | 2021-10-07 08:26 | XR ---
EXAMINATION TYPE: XR chest 2V DATE OF EXAM: 10/07/2021 COMPARISON: 01/27/2021 HISTORY: 60-year-old female shortness of breath, difficulty breathing TECHNIQUE: AP and lateral views FINDINGS: Borderline heart size. Aorta within normal limits. Some focal oblong density left suprahilar region p robably superimposition shadow. Nonemergent follow-up CT can exclude underlying pulmonary nodule. No consolidation or pleural effusion. IMPRESSION: 1. Borderline heart size. 2. Some focal left suprahilar density could represent summation artifact. Nonemergent follow-up CT of the chest recommended to exclude an underlying pulmonary nodule. 3. Otherwise, no acute process seen.
[2021-10-07] MEDS ORDERED: IBUPROFEN 600 MG TAB PO STA (08:30)
[2021-10-07] MEDS ORDERED: ONDANSETRON 4 MG/2 ML VIAL IVP STA (08:30)
[2021-10-07] MEDS ORDERED: ACETAMINOPHEN TAB 500 MG TAB PO STA (08:30)
[2021-10-07 08:41] LABS: Basophils % (A) 0 %; Eosinophils # (A) 0.1 k/uL (0-0.7); Eosinophils % (A) 1 %; HCT 41.2 % (34.0-46.0); HGB 13.5 gm/dL (11.4-16.0); Lymphocytes # (A) 1.7 k/uL (1.0-4.8); Lymphocytes % (A) 14 %; MCH 30.5 pg (25.0-35.0); MCHC 32.8 g/dL (31.0-37.0); MCV 93.1 fL (80.0-100.0); Mean Platelet Volume 8.3; Monocytes # (A) 0.4 k/uL (0-1.0); Monocytes % (A) 4 %; Neutrophils # (A) 10.1 k/uL (1.3-7.7); Neutrophils % (A) 81 %; Platelet Count 235 k/uL (150-450); RBC 4.43 m/uL (3.80-5.40); RDW 13.4 % (11.5-15.5); WBC 12.5 k/uL (3.8-10.6)
--- NOTE | 2021-10-07 08:50 | ED ---
URI HPI - General Chief Complaint: Upper Respiratory Infection Stated Complaint: fever, chills, headache Time Seen by Provider: 10/07/21 07:47 Source: patient, RN notes reviewed Mode of arrival: ambulatory Limitations: no limitations - History of Present Illness Initial Comments: This is a 60-year-old female presents emergency Department with chief complaint of cough congestion fever bodyaches headache. Patient states symptoms started over the last days. She states she has productive cough with large amount of sputum. Patient states she had COVID-19 in January. She does admit that she's been on some sick contacts with Covid, influenza. Patient denies any recent Tylenol Motrin states that she's been too nauseated take any medications. Patient does have chronic respiratory issues. Patient denies any dysuria hematuria. Patient denies any sore throat, ear pain. - Related Data Home Medications Medication Instructions Recorded Confirmed Albuterol Sulfate [Proair Hfa] 1 - 2 puff INHALATION RT-Q4H PRN 04/11/14 01/24/21 Ascorbic Acid [Vitamin C] 500 mg PO DAILY 04/11/14 01/24/21 EPINEPHrine (Auto Inject) [Epipen] 0.3 mg IM ONCE PRN 04/11/14 01/24/21 Zinc 50 mg PO DAILY 04/11/14 01/24/21 Magnesium Oxide [Mag-Ox] 250 mg PO DAILY 12/18/14 01/24/21 Furosemide [Lasix] 40 mg PO BID@0700,1500 04/22/15 01/24/21 Potassium Chloride [Klor-Con 20] 20 meq PO DAILY 04/22/15 01/24/21 Montelukast [Singulair] 10 mg PO HS 12/21/15 01/24/21 Levothyroxine Sodium [Synthroid] 50 mcg PO DAILY 03/03/16 01/24/21 Metoprolol Tartrate [Lopressor] 25 mg PO BID 01/09/17 01/24/21 Cholecalciferol [Vitamin D3 (25 5,000 unit PO DAILY 09/10/17 01/24/21 Mcg = 1000 Iu)] L.acidoph,Paracasei, B.lactis 1 cap PO DAILY 09/10/17 01/24/21 [Probiotic] Dicyclomine [Bentyl] 20 mg PO TID PRN 12/15/18 01/24/21 Diphenox-Atrop 2.5-0.025 mg 1 tab PO QID PRN 12/15/18 01/24/21 [Lomotil] Ipratropium-Albuterol Nebulize 3 ml INHALATION RT-QID PRN 12/15/18 01/24/21 [Duoneb 0.5 mg-3 mg/3 ml Soln] ALPRAZolam [Xanax] 0.5 mg PO TID PRN 01/15/21 01/24/21 Calcium Carbonate [Calcium] 600 mg PO DAILY 01/15/21 01/24/21 Famotidine [Pepcid] 40 mg PO HS 01/15/21 01/24/21 Fluticasone/Vilanterol [Breo 1 puff INHALATION RT-DAILY 01/15/21 01/24/21 Ellipta 200-25 Mcg Inhaler] Tiotropium Sulphur [Spiriva 2 puff INHALATION RT-DAILY 01/24/21 01/24/21 Respimat] Previous Rx's Medication Instructions Recorded Albuterol Inhaler [Ventolin Hfa 2 puff INHALATION QID #1 puff 01/15/21 Inhaler] Rivaroxaban [Xarelto] 10 mg PO DAILY 30 Days #30 tab 01/28/21 dexAMETHasone ORAL [Hexadrol] 6 mg PO DAILY #5 tab 01/28/21 Amoxicillin/Potassium Clav 1 tab PO Q12HR #20 tab 10/07/21 [Augmentin 875-125 Tablet] Ondansetron Odt [Zofran Odt] 4 mg PO Q8HR PRN #10 tab 10/07/21 predniSONE 50 mg PO DAILY #5 tab 10/07/21 Allergies Allergy/AdvReac Type Severity Reaction Status Date / Time Aminoglycosides Allergy Unknown Verified 10/07/21 07:41 honey Allergy Anaphylaxis Verified 10/07/21 07:41 moxifloxacin HCl Allergy Unknown Verified 10/07/21 07:41 [From Avelox] peanut Allergy Anaphylaxis Verified 10/07/21 07:41 azithromycin [From Zithromax] AdvReac Nausea & Verified 10/07/21 07:41 Vomiting & Diarrhea clindamycin AdvReac Dyspnea Verified 10/07/21 07:41 levofloxacin [From Levaquin] AdvReac Dyspnea Verified 10/07/21 07:41 neomycin [Neomycin] AdvReac Dyspnea Verified 10/07/21 07:41 omalizumab [From Xolair] AdvReac Dyspnea Verified 10/07/21 07:41 sulfamethoxazole AdvReac Diarrhea/co Verified 10/07/21 07:41 [From Bactrim] litis trimethoprim [From Bactrim] AdvReac Diarrhea/co Verified 10/07/21 07:41 litis Review of Systems ROS Statement: Those systems with pertinent positive or pertinent negative responses have been documented in the HPI. ROS Other: All systems not noted in ROS Statement are negative. Past Medical History Past Medical History: Asthma, Heart Failure, COPD, CVA/TIA, Deep Vein Thrombosis (DVT), GERD/Reflux, Hypertension, Osteoarthritis (OA), Respiratory Disorder, Sleep Apnea/CPAP/BIPAP, Syncope, Thyroid Disorder Additional Past Medical History / Comment(s): 01/15/21 pt tested covid + at [facility]. Other hx: Paradoxical vocal cord function/episodic dysphonia, dysphagia, tracheobronchial malasia, severe persistent bronchial asthma, ARAMIS with Cpap, TIA, scoliosis/spondylosis, neuropathy bilateral lower legs/feet, anemia, lower GI bleed, Cdiff colitis, hiatal hernia, tachycardia, hypothyroid History of Any Multi-Drug Resistant Organisms: C-DIFF Date of last positivie culture/infection: 04/22/15 MDRO Source:: stool Past Surgical History: Breast Surgery, Cholecystectomy, Heart Catheterization, Orthopedic Surgery, Tubal Ligation, Uterine Ablation Additional Past Surgical History / Comment(s): Multiple bronchoscopies, colonoscopy with benign polypectomy, bowel resection d/t perforation during colonoscopy, cyst removed near esophagus, vocal cords scrapped, L breast benign bx, D&C, bilateral knee arthroscopies with R side done twice, R arm tendon release. Past Anesthesia/Blood Transfusion Reactions: Postoperative Nausea & Vomiting (PONV) Additional Past Anesthesia/Blood Transfusion Reaction / Comment(s): Pt has never recieved blood. Past Psychological History: Anxiety Smoking Status: Never smoker Past Alcohol Use History: None Reported Past Drug Use History: None Reported - Past Family History Father Family Medical History: Cancer, Congestive Heart Failure (CHF), CVA/TIA, Myocardial Infarction (SD), Prostate Disorder Additional Family Medical History / Comment(s): at age 84- chocked on a hot dog Mother Family Medical History: Cancer, Osteoarthritis (OA) Additional Family Medical History / Comment(s): Breast cancer General Exam Limitations: no limitations General appearance: alert, in no apparent distress Head exam: Present: atraumatic, normocephalic, normal inspection Eye exam: Present: normal appearance, PERRL, EOMI. Absent: scleral icterus, conjunctival injection, periorbital swelling ENT exam: Present: normal exam, normal oropharynx, mucous membranes moist, TM's normal bilaterally Neck exam: Present: normal inspection. Absent: tenderness, meningismus, lymphadenopathy Respiratory exam: Present: wheezes. Absent: normal lung sounds bilaterally, respiratory distress, rales, rhonchi, stridor Cardiovascular Exam: Present: normal rhythm, tachycardia, normal heart sounds. Absent: systolic murmur, diastolic murmur, rubs, gallop, clicks GI/Abdominal exam: Present: soft, normal bowel sounds. Absent: distended, tenderness, guarding, rebound, rigid Neurological exam: Present: alert, oriented X3 Skin exam: Present: warm, dry, intact, normal color. Absent: rash Course Vital Signs 10/07/21 10/07/21 10/07/21 07:42 08:58 09:35 Temperature 100.8 F H 100.5 F H Pulse Rate 115 H 88 Respiratory 24 18 Rate Blood Pressure 130/82 123/79 O2 Sat by Pulse 99 99 Oximetry 10/07/21 10/07/21 10:09 10:30 Temperature Pulse Rate 92 94 Respiratory Rate Blood Pressure O2 Sat by Pulse Oximetry Medical Decision Making - Medical Decision Making 60-year-old presented for fever cough congestion type symptoms. Influenza,: 19 is negative. X-ray does not show definite pneumonia. Patient labwork unremarkable. She does feel improved after antipyretics, breathing treatments steroids. Patient we treated outpatient with oral inspection steroids with close follow-up and return parameters. Patient agrees to plan. - Lab Data Result diagrams: 10/07/21 08:30 10/07/21 08:30 Lab Results 10/07/21 10/07/21 10/07/21 Range/Units 07:59 08:30 08:30 WBC 12.5 H (3.8-10.6) k/uL RBC 4.43 (3.80-5.40) m/uL Hgb 13.5 (11.4-16.0) gm/dL Hct 41.2 (34.0-46.0) % MCV 93.1 (80.0-100.0) fL MCH 30.5 (25.0-35.0) pg MCHC 32.8 (31.0-37.0) g/dL RDW 13.4 (11.5-15.5) % Plt Count 235 (150-450) k/uL MPV 8.3 Neutrophils % 81 % Lymphocytes % 14 % Monocytes % 4 % Eosinophils % 1 % Basophils % 0 % Neutrophils # 10.1 H (1.3-7.7) k/uL Lymphocytes # 1.7 (1.0-4.8) k/uL Monocytes # 0.4 (0-1.0) k/uL Eosinophils # 0.1 (0-0.7) k/uL Basophils # 0.0 (0-0.2) k/uL Sodium 139 (137-145) mmol/L Potassium 3.6 (3.5-5.1) mmol/L Chloride 105 (98-107) mmol/L Carbon Dioxide 26 (22-30) mmol/L Anion Gap 8 mmol/L BUN 14 (7-17) mg/dL Creatinine 1.01 (0.52-1.04) mg/dL Est GFR (CKD-EPI)AfAm 71 (>60 ml/min/1.73 sqM) Est GFR (CKD-EPI)NonAf 62 (>60 ml/min/1.73 sqM) Glucose 107 H (74-99) mg/dL Plasma Lactic Acid Seth (0.7-2.0) mmol/L Calcium 9.3 (8.4-10.2) mg/dL Magnesium 1.9 (1.6-2.3) mg/dL Total Bilirubin 1.2 (0.2-1.3) mg/dL AST 23 (14-36) U/L ALT 14 (4-34) U/L Alkaline Phosphatase 90 (38-126) U/L Total Protein 7.0 (6.3-8.2) g/dL Albumin 4.0 (3.5-5.0) g/dL Coronavirus (PCR) Not Detected (Not Detectd) Influenza Type A RNA (Not Detectd) Influenza Type B (PCR) (Not Detectd) 12/23/21 12/23/21 Range/Units 08:30 08:30 WBC (3.8-10.6) k/uL RBC (3.80-5.40) m/uL Hgb (11.4-16.0) gm/dL Hct (34.0-46.0) % MCV (80.0-100.0) fL MCH (25.0-35.0) pg MCHC (31.0-37.0) g/dL RDW (11.5-15.5) % Plt Count (150-450) k/uL MPV Neutrophils % % Lymphocytes % % Monocytes % % Eosinophils % % Basophils % % Neutrophils # (1.3-7.7) k/uL Lymphocytes # (1.0-4.8) k/uL Monocytes # (0-1.0) k/uL Eosinophils # (0-0.7) k/uL Basophils # (0-0.2) k/uL Sodium (137-145) mmol/L Potassium (3.5-5.1) mmol/L Chloride (98-107) mmol/L Carbon Dioxide (22-30) mmol/L Anion Gap mmol/L BUN (7-17) mg/dL Creatinine (0.52-1.04) mg/dL Est GFR (CKD-EPI)AfAm (>60 ml/min/1.73 sqM) Est GFR (CKD-EPI)NonAf (>60 ml/min/1.73 sqM) Glucose (74-99) mg/dL Plasma Lactic Acid Seth 1.2 (0.7-2.0) mmol/L Calcium (8.4-10.2) mg/dL Magnesium (1.6-2.3) mg/dL Total Bilirubin (0.2-1.3) mg/dL AST (14-36) U/L ALT (4-34) U/L Alkaline Phosphatase (38-126) U/L Total Protein (6.3-8.2) g/dL Albumin (3.5-5.0) g/dL Coronavirus (PCR) (Not Detectd) Influenza Type A RNA Not Detected (Not Detectd) Influenza Type B (PCR) Not Detected (Not Detectd) Disposition Clinical Impression: Tracheobronchitis Disposition: HOME SELF-CARE Condition: Stable Instructions (If sedation given, give patient instructions): Upper Respiratory Infection (ED) Additional Instructions: Please return to the Emergency Department if symptoms worsen or any other concerns. Prescriptions: Amoxicillin/Potassium Clav [Augmentin 875-125 Tablet] 1 tab PO Q12HR #20 tab predniSONE 50 mg PO DAILY #5 tab Ondansetron Odt [Zofran Odt] 4 mg PO Q8HR PRN #10 tab PRN Reason: Nausea Is patient prescribed a controlled substance at d/c from ED?: No Referrals: Lucio Potts MD [Primary Care Provider] - 1-2 days Time of Disposition: 10:36
[2021-10-07 08:57] LABS: Calcium 9.3 mg/dL (8.4-10.2); Magnesium 1.9 mg/dL (1.6-2.3); Potassium 3.6 mmol/L (3.5-5.1); Total Bilirubin 1.2 mg/dL (0.2-1.3)
[2021-10-07] MEDS ORDERED: methylPREDNISolone SOD SUCCI 125 MG/2 ML VIAL IV STA (09:22)
[2021-10-07] MEDS ORDERED: IPRATROPIUM-ALBUTEROL 3 ML NEB INHALATION STA (09:23)
[2021-10-07 09:35] VITALS: RESP 18; TEMP 100.5
[2021-10-07] MEDS ORDERED: cefTRIAXone IN SWFI 1,000 MG/10 ML SYRINGE IVP STA (10:34)
[2021-10-07 11:12] VITALS: BP 110/79; PULSE 88
== END 2021-10-07 11:12 | disposition home or self-care (01) ==
LOC: EC 07:39
DX: J40 Bronchitis, not specified as acute or chronic (principal); J44.9 Chronic obstructive pulmonary disease, unspecified; I11.0 Hypertensive heart disease with heart failure; I50.9 Heart failure, unspecified; M19.90 Unspecified osteoarthritis, unspecified site; F41.9 Anxiety disorder, unspecified; Z79.51 Long term (current) use of inhaled steroids; Z86.73 Personal history of transient ischemic attack (TIA), and cerebral infarction without residual deficits; Z86.718 Personal history of other venous thrombosis and embolism
CPT/HCPCS: 36415; 80053; 83605; 83735; 85025; 87502; 87635; 71046; 99284; 96374; 96375 ×2; 96361; J2930; J2405; J0696

== ENCOUNTER → 2021-10-12 | Outpatient (CLI) | payer BC ==
--- NOTE | 2021-10-12 16:13 | BD ---
EXAMINATION TYPE: Axial Bone Density DATE OF EXAM: 10/12/2021 COMPARISON: 2001 CLINICAL HISTORY: 60-year-old female postmenopausal screening Height: 67 Weight: 250.7 FRAX RISK QUESTIONS: Alcohol (3 or more units per day): no Family History (Parent hip fracture): no Glucocorticoids (More than 3mos): no (Ex: prednisone, prednisolone, methylprednisolone, dexamethasone, and hydrocortisone). History of Fracture in Adulthood: yes Secondary Osteoporosis: 1. Type 1 Diabetes: no 2. Hyperthyroidism: no 3. Menopause before 45: no 4. Malnutrition: no 5. Chronic liver disease: no Rheumatoid Arthritis: no Current Tobacco Use: no RISK FACTORS HISTORY OF: Surgery to Spine/Hip(right/left)/Wrist (right/left): no Family History of Osteoporosis: yes Active: no Diet low in dairy products/other sources of calcium: yes Postmenopausal woman: yes Lost more than 2 inches in height since high school: no MEDICATIONS: bowel issue meds, Thyroid Medications: thyroid How Lon years Additional History: EXAM MEASUREMENTS: Bone mineral densitometry was performed using the [employer] System. Bone mineral density as measured about the Lumbar spine is: ----- L1-L4(G/cm2): 1.182 T Score Values are as follows: ----- L2: 0.8 ----- L3: -1.0 ----- L4: -0.9 ----- L1-L4: 0.0 Bone mineral density has: decreased -2.9 % since study of: 10.18.2001 Bone mineral density about the R hip (g/cm2): 0.833 Bone mineral density about the L hip (g/cm2): 0.811 T Score values are as follows: -----R Neck: -1.5 -----L Neck: -1.6 -----R Total: -1.4 -----L Total: -1.4 Bone mineral density has: decreased -7.2 % since study of: 10.18.2001 IMPRESSION: Osteopenia (T Score between -2.5 and -1). There is slightly increased risk of fracture and the patient may be considered for treatment. Re-Screen 2-5 years. NOTE: T-SCORE=SD OF THE YOUNG ADULT MEAN.
== END | disposition home or self-care (01) ==
LOC: RADBDWWP 15:26
PROVIDERS: ATTEND Internal Medicine
DX: M85.89 Other specified disorders of bone density and structure, multiple sites (principal); Z78.0 Asymptomatic menopausal state
CPT/HCPCS: 77080

== ENCOUNTER → 2021-11-24 | Outpatient (CLI) | payer BC | END | disposition home or self-care (01) | LOC: LABPAT 11:57 | PROVIDERS: ATTEND Orthopaedic Surgery | DX: Z01.812 Encounter for preprocedural laboratory examination (principal); M17.12 Unilateral primary osteoarthritis, left knee | CPT/HCPCS: 87070 ==

== ENCOUNTER 2021-12-07 05:52 | Observation (INO) | payer BC ==
--- NOTE | 2021-12-06 10:33 | HP ---
HISTORY AND PHYSICAL CHIEF COMPLAINT: Left knee pain. HISTORY OF PRESENT ILLNESS: Patient is a 61-year-old female who presents with progressive left knee pain for the past several years, worsening recently. She notes daily pain with weightbearing activities. She has intermittent giving way. She is also having night symptoms. She does use a cane. She has tried previous medications along with injections, with only partial temporary relief. She has had previous arthroscopies as well. PAST MEDICAL HISTORY: Significant for asthma, hypertension, hypothyroidism, blood clots and osteoarthritis. PAST SURGICAL HISTORY: Significant for left breast biopsy, tubal ligation, cataract removal, cholecystectomy, left knee arthroscopy x2, cardiac catheterization and partial bowel resection. CURRENT MEDICATIONS: Alprazolam, famotidine, Lasix, levothyroxine, metoprolol, Singulair, Spiriva and Tylenol. ALLERGIES: BACTRIM, AVELOX, CLINDAMYCIN, LEVAQUIN, NEOMYCIN, XOLAIR AND ZITHROMAX. FAMILY HISTORY: Significant for cancer. SOCIAL HISTORY: Negative for current tobacco or alcohol use. REVIEW OF SYSTEMS: Sixteen-point review of systems otherwise reviewed and is noncontributory. PHYSICAL EXAMINATION: On examination, patient is approximately 5 feet 7 inches, 243 pounds of endomorphic habitus. HEENT exam is nonfocal. Neck is supple. She has painless passive motion of the left hip. Straight-leg raise is negative. Active motion left knee minus 11 to 110 degrees of flexion. She is tender about the lateral joint line. She has moderate effusion. Collaterals are stable, Jonathan is negative, Ctahie's is equivocal. She has genu valgum alignment. Her distal neurovascular exam appears intact in the left lower extremity. Weightbearing notch, lateral and Merchant views of left knee obtained in the office show severe lateral and patellofemoral compartment narrowing with [id number] changes and subchondral sclerosis. IMPRESSION: 1. Left knee severe lateral and patellofemoral compartment osteoarthrosis. 2. Obesity. RECOMMENDATIONS: I talked to the patient at length regarding her condition along with treatment options. At this point she is quite symptomatic and limited despite previous conservative measures, including attempted weight loss. After thorough discussion, she opts to proceed with surgery. Will plan to proceed with left total knee arthroplasty. Risks and benefits were discussed at length in layman's terms. MMODL / IJN: [id number] /
[~2021-12-07 05:52] MED LIST changes: +ACETAMINOPHEN TAB 500 MG TAB PO PRN; -ALBUTEROL NEB (CONC) 2.5 MG/0.5 ML INHALATION ONE; +DEXAMETHASONE SOD PHOSPHATE 4 MG/ML 1 ML VIAL IV ONE; +LACTATED RINGERS 1,000 ML IV SCH; +LIDOCAINE 1% (10MG/ML) FOR IV START INTRADERMA PRN; -LIDOCAINE 2% (PF) 20 MG/ML 10 ML AMP INHALATION ONE; -LIDOCAINE VISCOUS 300 MG/15 ML CUP MUCOUS MEM ONE; +MELOXICAM 7.5 MG TAB PO PRN; +MIDAZOLAM 2 MG/2 ML VIAL IV PRN; +ONDANSETRON 4 MG/2 ML VIAL IVP ONE; -SODIUM CHLORIDE 0.9% 1,000 ML IV SCH; +TRANEXAMIC ACID 1,000 MG in SODIUM CHLORIDE 0.9% 100 ML IVPB PRN
[2021-12-07] MEDS ORDERED: HYDROmorphone 0.5 MG/0.5 ML SYRINGE IVP PRN (07:00)
[2021-12-07] MEDS ORDERED: SODIUM CHLORIDE 0.9% (PF) 10 ML VIAL ONE (07:43)
[2021-12-07] MEDS ORDERED: PROPOFOL 10 MG/ML 20 ML VIAL IV ONE (07:43)
[2021-12-07] MEDS ORDERED: ROPIVACAINE 5 MG/ML 30 ML VIAL ONE (07:43)
[2021-12-07] MEDS ORDERED: MIDAZOLAM 2 MG/2 ML VIAL ONE (07:43)
[2021-12-07] MEDS ORDERED: PHENYLEPHRINE-0.9% NACL SYG 1,000 MCG/10 ML SYRINGE ONE (07:43)
[2021-12-07] MEDS ORDERED: TRANEXAMIC ACID 1,000 MG/10 ML VIAL ONE (07:43)
[2021-12-07] MEDS ORDERED: fentaNYL (PF) 50 MCG/ML 2 ML AMP ONE (07:43)
[2021-12-07] MEDS ORDERED: SODIUM CHLORIDE 0.9% 100 ML BAG ONE (07:43)
[2021-12-07] MEDS ORDERED: ceFAZolin 3,000 MG in SODIUM CHLORIDE 0.9% IRRIGATIO 3,000 ML IRRIGATION ONE (08:22)
--- NOTE | 2021-12-07 09:09 | P.ANPRN ---
Procedure Note - Anesthesia - Nerve Block Performed Left Adductor Canal Time Out Performed: Yes (07:11) Date of Procedure: 12/07/21 Procedure Start Time: Procedure Stop Time: Location of Patient: PreOp Indication: Acute Post-Operative Pain, Requested by Surgeon (dr Rick) Sedation Type: Sedate with meaningful contact maintained Preparation: Sterile Prep, Sterile Dressing Position: Supine Catheter: Indwelling Needle Types: Pajunk Needle Gauge: 21 Ultrasound used to visualize needle placement: Yes Ultrasound used to observe medication spread: Yes Injectate: 0.5% Ropivacaine (see comment for volume) (15CC) Blood Aspirated: No Pain Paresthesia on Injection Noted: No Resistance on Injection: Normal Image Stored and Saved: Yes Events: Uneventful and Well Tolerated
--- NOTE | 2021-12-07 09:11 | P.ANPRN ---
Procedure Note - Anesthesia - Nerve Block Performed Left iPack Time Out Performed: Yes Date of Procedure: 12/07/21 Procedure Start Time: :23 Procedure Stop Time: 07:32 Location of Patient: PreOp Indication: Acute Post-Operative Pain, Requested by Surgeon (Dr Holbrook) Sedation Type: Sedate with meaningful contact maintained Preparation: Sterile Prep Position: Supine Catheter: None Needle Types: Pajunk Needle Gauge: 21 Ultrasound used to visualize needle placement: Yes Ultrasound used to observe medication spread: Yes Injectate: 0.5% Ropivacaine (see comment for volume) (15cc + 5cc PF Normal saline) Blood Aspirated: No Pain Paresthesia on Injection Noted: No Resistance on Injection: Normal Image Stored and Saved: Yes Events: Uneventful and Well Tolerated
[2021-12-07] MEDS ORDERED: MAGNESIUM HYDROXIDE 2,400 MG/10 ML CUP PO PRN (09:41)
[2021-12-07] MEDS ORDERED: traMADol 50 MG TAB PO PRN (09:41)
[2021-12-07] MEDS ORDERED: HYDROmorphone 1 MG/ML 1 ML SYRINGE IVP PRN (09:41)
[2021-12-07] MEDS ORDERED: NALOXONE 0.4 MG/ML 1 ML VIAL IV PRN (09:41)
[2021-12-07] MEDS ORDERED: HYDROcodone/APAP 7.5-325MG 1 EACH TAB PO PRN (09:41)
[2021-12-07] MEDS ORDERED: LACTATED RINGERS 1,000 ML IV ONE (09:45)
--- NOTE | 2021-12-07 09:56 | P.OP ---
Date of Procedure: 12/07/21 Preoperative Diagnosis: Left knee severe tricompartmental osteoarthrosis Postoperative Diagnosis: Same Procedure(s) Performed: Left total knee arthroplastycruciate substitutingcemented Implants: [employer] journey 2 size 5 femoral component, size 4 tibial component, 9 mm articular surface, 32 mm cemented patellar component. This is a cruciate substituting implant. Anesthesia: regional, spinal Surgeon: Rico Holbrook Mop Man #1: Catrachito Barajas Estimated Blood Loss (ml): 50 Pathology: other (Bone fragments) Condition: stable Disposition: PACU Indications for Procedure: The patient's 61-year-old female presents with progressive left knee pain secondary to osteoarthrosis despite conservative measures. A discussion of the risks and benefits of operative intervention versus continued conservative measures with patient. She also has worked diligently on weight loss. She opted to proceed with surgery. Operative risks to include infection, neurovascular injury, development of blood clots, fracture, component loosening/failure need for subsequent procedures was discussed. Informed consent was obtained. Operative Findings: As below Description of Procedure: The patient was brought to the operating room, and after induction of spinal anesthesia the left lower extremity was prepped and draped in a normal fashion. The tourniquet was inflated to 270 mm marker. A longitudinal incision extending 3 finger breaths above the superior pole of patella extending to the medial aspect the tibial tubercle was then made. The skin and subcutaneous tissues were divided sharply. Electrocautery was used for hemostasis. A medial parapatellar arthrotomy was performed. The medial soft tissues to include the superficial and deep portions of the medial collateral ligament were elevated subperiosteally. The patella was everted. A portion of the retropatellar fat pad was excised sharply. The anterior cruciate ligament was sacrificed. Blunt retractors were placed. A starting hole was made in the distal femur 1 cm anterior to the posterior cruciate ligament origin. An intramedullary femoral guide was then inserted planning on 5 valgus distal cut with 9 mm distal resection. The cutting block was pinned in place. The distal cut was then made. The posterior referencing sizing guide was utilized. I felt size 5 was most appropriate. 3 of external rotation was built into the system and verified off the trans-epicondylar axis and the posterior condyles. The cutting block was pinned in place. The anterior, posterior, and chamfer cuts then made. Bone fragments were removed. The intercondylar guide was placed and the notch was prepared. The trial component was then placed. There is good anterior to posterior and medial to lateral fit. The trial component was removed. Attention was then paid towards preparing the proximal tibia. An extra medullary guide was utilized in line with the tibial shaft and second metatarsal distally. I planned on 6 mm resection from the medial compartment. The cutting block was pinned in place. The proximal tibial cut was then made. The bone was removed in one fragment. The remnants of the medial and lateral menisci were excised at the capsular junction with electrocautery. The tibia sized most appropriately at size 4. The trial femoral and tibial components were placed along with a 9 mm articular surface. I was able to obtain full flexion and extension with internal and external rotation. After several flexion and extension cycles, the tibial rotation was marked with electrocautery line with the medial one third of the tibial tubercle. Attention was then paid towards preparing the patella. A patella reamer was utilized taking stem to 14 mm of bone stock. A good flush cut was made. The patella sized most appropriately 32 mm. The peg holes were drilled. The trial components placed. I had good patellofemoral tracking with no hands technique. The trial components were then removed. The tibia was prepared in the appropriate rotation with appropriate drill and keel punch. The posterior osteophytes were removed with a curved osteotome. The flexion and extension gaps were checked and felt to be symmetric at 9 mm. A trial components were then removed. The posterior soft tissues were injected with ropivacaine. The bony surfaces were prepared with pulsatile lavage and dried. The tibial component was then cemented place was fully seated. Excess cement was removed. The femoral component cemented place and was fully seated. Excess cement was removed. The trial 9 mm articular surface was placed and the knee was put in full extension. The patella component was cemented place. After the cement had sufficiently hardened, the knee was again taken through a range of motion. Again I was able to obtain full flexion and extension with varus and valgus stress. The trial 9 mm articular surface was removed and the final one inserted. This was fully seated. Care was taken to avoid any soft tissue interposition. Pulsatile lavage was again utilized. The medial parapatellar arthrotomy was closed with #2 Ethibond suture. The tourniquet was deflated with approximately 60 total tourniquet time. Final hemostasis was obtained with the cautery. There was minimal bleeding therefore a deep drain was not placed. The subcutaneous tissues were reapproximated with interrupted 2-0 Vicryl sutures. The skin was reapproximated with 3-0 subcuticular strata fix suture. Skin tape and adhesive was applied. A sterile dressing was applied. The patient was awoken from sedation and transferred to recovery room in good condition. Blood loss was estimated at 50 mL. No complications were incurred. Sponge and needle counts were correct at the end of the case. Aakash RIVAS assisted during the major components of this case to include exposure, bone resection, implantation, and closure.
[2021-12-07] MEDS ORDERED: ROPIVACAINE 0.2%-NS ON-Q PUMP 1,090 MG, EMPTY PAIN BALL 1 EACH MISCELLANE PRN (09:59)
[2021-12-07] MEDS ORDERED: ROPIVACAINE 0.2%-NS ON-Q PUMP 2 MG/ML EACH MISCELLANE ONE (10:15)
--- NOTE | 2021-12-07 10:34 | XR ---
EXAMINATION TYPE: XR knee limited LT DATE OF EXAM: 12/07/2021 COMPARISON: NONE HISTORY: 61-year-old female evaluation for postoperative abnormality in alignment TECHNIQUE: 2 views FINDINGS: Images show placement of left total knee arthroplasty. Both distal femoral and proximal tib ial components of the prosthesis are well seated without periprosthetic fracture. Alignment grossly a natomic. Scattered soft tissue air as well as intra-articular air relating to recent operation. IMPRESSION: Uncomplicated postoperative appearance left total knee arthroplasty.
[2021-12-07] MEDS: ONDANSETRON 4 MG/2 ML VIAL IVP PRN ×2 (13:59→19:33)
[2021-12-07] MEDS: HYDROmorphone 1 MG/ML 1 ML SYRINGE IVP PRN ×2 (14:00→16:39)
[2021-12-07] MEDS ORDERED: NYSTATIN 100,000 UNIT/GM POWD 15 GM TOPICAL PRN (14:04)
--- NOTE | 2021-12-07 14:04 | P.CONS ---
<Miguel Oakley - Last Filed: 12/07/21 16:47> History of Present Illness - Reason for Consult Consult date: 12/07/21 Requesting physician: Rico Holbrook - History of Present Illness History of Presenting Illness: Patient is a very pleasant 61-year-old female with a past medical history of CAD, CHF, hypertension, hypothyroidism, osteoarthrosis, tracheobronchial malacia, and obstructive sleep apnea. She is currently admitted to the hospital and is status post left total knee arthroplasty completed by Dr. Govea secondary to left knee severe tricompartmental osteoarthrosis. We have been consulted to follow patient throughout her admission for continued medical management. Patient seen and fully evaluated at the bedside upon return from postop. Patient reports currently pain is controlled and has left lower extremity wrapped with Omer dressing and ice packs in place. Movement and sensation intact to left foot and toes. Pedal pulses intact. Patient has been tolerating oral intake and denies having any postoperative nausea or vomiting. She reports urinating without any difficulties and reports one episodes of urinary incontinence and postoperative period. Patient denies having any headache, lightheadedness, dizziness, chest pain, palpitations, or shortness of breath. Patient educated on the importance of incentive spirometer use with history of tracheobronchial malacia and ARAMIS. Currently patient on room air with SpO2 of 97%. Review of systems: Pertinent positives and negatives as discussed in HPI, a complete review of systems was performed and all other systems are negative. Physical exam: Vital signs reviewed and stable. General: Nontoxic, no distress and appears stated age. Derm: Skin warm and dry, normal coloration for ethnicity. Head: Atraumatic, normocephalic and symmetric. Eyes: EOMs intact, no lid lag, and anicteric sclera Mouth: no lip lesions, mucus membranes moist Cardiovascular: regular rate and rhythm with normal S1S2, no murmur, positive posterior tibial pulses bilaterally, and cap refill < 2 seconds. Lungs: Respirations even, regular, and unlabored on room air. Lungs CTA bilaterally, no rhonchi, no rales, no wheezing, and no accessory muscle usage. Abdominal: soft, nontender to palpation, no guarding, no appreciable organomegaly Ext: No gross muscle atrophy, no edema, no contractures. Left lower extremity with postoperative dressing in place and ice packs in place. Neuro: Speech clear, face symmetrical and CN II-XII grossly intact with no noted focal neuro deficits Psych: Alert and oriented to person, place, time, and situation. Appropriate and pleasant affect. Assessment and Plan of Care: Tracheobronchial malacia Obstructive sleep apnea -Provide patient with oxygenation as needed to maintain SpO2 equal to or greater than 90%. -CPAP/BiPAP as needed nightly. -Strongly encourage use of incentive spirometer 10-15 times hourly while awake. -Continue use of albuterol sulfate inhaler as needed for wheezing and/or shortness of breath, Brio Ellipta, Singulair, and Spiriva Osteoarthrosis Status post left total knee arthroplasty completed by Dr. Govea on 12/07/21 -Management per primary admitting orthopedic surgery team including pain management, DVT prophylaxis, weightbearing, wound care, and PT/OT. -Patient is currently on Xarelto for DVT prophylaxis. Hypothyroidism -Continue daily medication regimen with levothyroxine. Thank you for allowing us to participate in the care of this pleasant patient. Do not hesitate to contact us with questions. Someone can be reached from the [facility] hospitalist group all hours of the day at [phone] or via [employer]. Past Medical History Past Medical History: Asthma, Heart Failure, COPD, CVA/TIA, Deep Vein Thrombosis (DVT), GERD/Reflux, Hypertension, Osteoarthritis (OA), Respiratory Disorder, Sleep Apnea/CPAP/BIPAP, Syncope, Thyroid Disorder Additional Past Medical History / Comment(s): 01/15/21 pt tested covid + at [facility]. Other hx: Paradoxical vocal cord function/episodic dysphonia, dysphagia, tracheobronchial malasia, severe persistent bronchial asthma. ARAMIS with Cpap. TIA. scoliosis/spondylosis. neuropathy bilateral lower legs/feet. anemi. lower GI bleed. Cdiff colitis, hiatal hernia, tachycardia, hypothyroid History of Any Multi-Drug Resistant Organisms: C-DIFF Year Discovered:: 04/22/15 MDRO Source:: stool Past Surgical History: Breast Surgery, Cholecystectomy, Heart Catheterization, Orthopedic Surgery, Tubal Ligation, Uterine Ablation Additional Past Surgical History / Comment(s): Multiple bronchoscopies, colonoscopy with benign polypectomy, bowel resection d/t perforation during colonoscopy, cyst removed near esophagus, vocal cords scrapped, L breast benign bx, D&C, bilateral knee arthroscopies with R side done twice, R arm tendon release. Past Anesthesia/Blood Transfusion Reactions: Postoperative Nausea & Vomiting (PONV) Additional Past Anesthesia/Blood Transfusion Reaction / Comm: Pt has never recieved blood. Past Psychological History: Anxiety Additional Psychological History / Comment(s): Pt resides with her spouse. She uses a or cane to ambulate. She has a nebulizer. She has some dysphagia, cuts meat up small and difficulty swallowing large pills. She drives. Smoking Status: Never smoker Past Alcohol Use History: None Reported Past Drug Use History: None Reported - Past Family History Father Family Medical History: Cancer, Congestive Heart Failure (CHF), CVA/TIA, Myocardial Infarction (GA), Prostate Disorder Additional Family Medical History / Comment(s): at age 84- chocked on a hot dog Mother Family Medical History: Cancer, Osteoarthritis (OA) Additional Family Medical History / Comment(s): Breast cancer Medications and Allergies Home Medications Medication Instructions Recorded Confirmed Type Albuterol Sulfate [Proair Hfa] 1 - 2 puff INHALATION RT-Q4H PRN 04/11/14 12/07/21 History Ascorbic Acid [Vitamin C] 500 mg PO DAILY 04/11/14 12/07/21 History EPINEPHrine (Auto Inject) [Epipen] 0.3 mg IM ONCE PRN 04/11/14 12/07/21 History Zinc 50 mg PO DAILY 04/11/14 12/07/21 History Magnesium Oxide [Mag-Ox] 250 mg PO DAILY 12/18/14 12/07/21 History Furosemide [Lasix] 40 mg PO BID@0700,1500 04/22/15 12/07/21 History Potassium Chloride [Klor-Con 20] 20 meq PO HS 04/22/15 12/07/21 History Montelukast [Singulair] 10 mg PO HS 12/21/15 12/07/21 History Levothyroxine Sodium [Synthroid] 50 mcg PO QAM 03/03/16 12/07/21 History Metoprolol Tartrate [Lopressor] 25 mg PO BID 01/09/17 12/07/21 History Cholecalciferol [Vitamin D3 (25 5,000 unit PO DAILY 09/10/17 12/07/21 History Mcg = 1000 Iu)] L.acidoph,Paracasei, B.lactis 1 cap PO DAILY 09/10/17 12/07/21 History [Probiotic] Dicyclomine [Bentyl] 20 mg PO TID PRN 12/15/18 12/07/21 History Diphenox-Atrop 2.5-0.025 mg 1 tab PO QID PRN 12/15/18 12/07/21 History [Lomotil] Ipratropium-Albuterol Nebulize 3 ml INHALATION RT-QID PRN 12/15/18 12/07/21 History [Duoneb 0.5 mg-3 mg/3 ml Soln] ALPRAZolam [Xanax] 0.5 mg PO TID PRN 01/15/21 12/07/21 History Albuterol Inhaler [Ventolin Hfa 2 puff INHALATION QID #1 puff 01/15/21 12/07/21 Rx Inhaler] Calcium Carbonate [Calcium] 600 mg PO BID 01/15/21 12/07/21 History Famotidine [Pepcid] 40 mg PO HS 01/15/21 12/07/21 History Fluticasone/Vilanterol [Breo 1 puff INHALATION QAM 01/15/21 12/07/21 History Ellipta 200-25 Mcg Inhaler] Ondansetron Odt [Zofran Odt] 4 mg PO Q8HR PRN #10 tab 10/07/21 12/07/21 Rx Acetaminophen [Tylenol] 325 - 650 mg PO Q6H PRN 12/03/21 12/07/21 History Nystatin 100,000 Unit/gm Powd 1 applic TOPICAL DIRECTED PRN 12/03/21 12/07/21 History [Mycostatin Powder] SILVER sulfADIAZINE Cream 1 applic TOPICAL DIRECTED PRN 12/03/21 12/07/21 History [Silvadene 1% Cream] Tiotropium 2.5 Mcg/Puff [Spiriva 2 puff IN QAM 12/03/21 12/07/21 History Respimat 2.5 Mcg] Allergies Allergy/AdvReac Type Severity Reaction Status Date / Time Aminoglycosides Allergy Unknown Verified 12/07/21 06:33 honey Allergy Anaphylaxis Verified 12/07/21 06:33 moxifloxacin HCl Allergy Unknown Verified 12/07/21 06:33 [From Avelox] peanut Allergy Anaphylaxis Verified 12/07/21 06:33 azithromycin [From Zithromax] AdvReac Nausea & Verified 12/07/21 06:33 Vomiting & Diarrhea clindamycin AdvReac Dyspnea Verified 12/07/21 06:33 levofloxacin [From Levaquin] AdvReac Dyspnea, Verified 12/07/21 06:33 THROAT SWOLLEN neomycin [Neomycin] AdvReac Dyspnea Verified 12/07/21 06:33 omalizumab [From Xolair] AdvReac Dyspnea Verified 12/07/21 06:33 trimethoprim [From Bactrim] AdvReac Diarrhea/co Verified 12/07/21 06:33 litis Physical Exam Vitals: Vital Signs Temp Pulse Pulse Resp BP Pulse Ox 12/07/21 13:00 77 16 115/59 95 12/07/21 12:30 66 18 125/83 98 12/07/21 12:01 75 16 119/56 95 12/07/21 11:37 57 L 16 119/58 95 12/07/21 11:16 77 16 124/56 97 12/07/21 11:02 54 L 16 111/53 100 12/07/21 10:47 63 16 104/52 100 12/07/21 10:23 70 16 100/52 100 12/07/21 10:08 55 L 16 101/56 100 12/07/21 09:53 97.0 F L 75 14 98/54 98 12/07/21 07:26 81 16 132/81 96 12/07/21 06:23 98.2 F 84 18 153/82 98 Intake and Output 12/06/21 12/07/21 12/07/21 22:59 06:59 14:59 Intake Total 200 1101 Output Total 50 Balance 200 1051 Intake: IV 200 1101 Output: Estimated Blood Loss 50 Other: Weight 111.1 kg <Nelly Ortega - Last Filed: 12/08/21 16:24> History of Present Illness - History of Present Illness I reviewed the documentation as provided by the LUIS DANIEL above, who is the original author of this note. I agree with the documented assessment and plan, with the following changes: None Physical Exam Osteopathic Statement: *. No significant issues noted on an osteopathic structural exam other than those noted in the History and Physical/Consult. Vitals: Vital Signs Temp Pulse Pulse Pulse Resp BP BP 12/08/21 15:48 84 12/08/21 15:25 80 12/08/21 14:00 99.8 F H 80 17 141/76 12/08/21 12:08 84 12/08/21 11:59 90 12/08/21 09:45 18 12/08/21 09:06 78 12/08/21 08:51 78 12/08/21 07:19 99.6 F 76 16 122/75 12/08/21 02:30 98.7 F 78 17 136/67 12/07/21 19:17 97.6 F 116 H 20 136/70 12/07/21 19:12 72 12/07/21 19:05 69 Pulse Ox 12/08/21 15:48 12/08/21 15:25 12/08/21 14:00 100 12/08/21 12:08 12/08/21 11:59 12/08/21 09:45 12/08/21 09:06 12/08/21 08:51 12/08/21 07:19 98 12/08/21 02:30 97 12/07/21 19:17 98 12/07/21 19:12 12/07/21 19:05 Intake and Output 12/08/21 12/08/21 12/08/21 06:59 14:59 22:59 Other: # Voids 3 # Bowel Movements 0 Results CBC & Chem 7: 12/08/21 03:42 12/08/21 03:42 Labs: Abnormal Lab Results - Last 24 Hours (Table) 12/08/21 12/08/21 Range/Units 03:42 03:42 WBC 12.18 H (4.50-10.00) X 10*3/uL RBC 3.96 L (4.10-5.20) X 10*6/uL Hgb 11.8 L (12.0-15.0) g/dL MCHC 31.4 L (32.0-37.0) g/dL Immature Gran # 0.05 H (0.00-0.04) X 10*3/uL Neutrophils # 9.54 H (1.80-7.70) X 10*3/uL Monocytes # 1.12 H (0.20-1.00) X 10*3/uL Eosinophils # 0 L (0.04-0.35) X 10*3/uL Est GFR (CKD-EPI)NonAf 58.1 L (60.0-200.0) Total Bilirubin 1.90 H (0.30-1.20) mg/dL AST 214 H (13-35) U/L ALT 229 H (8-44) U/L Alkaline Phosphatase 186 H (41-126) U/L Total Protein 5.7 L (6.2-8.2) g/dL Albumin 3.6 L (3.8-4.9) g/dL
[2021-12-07] MEDS: ALBUTEROL NEBULIZED 2.5 MG/3 ML INHALATION SCH ×2 (15:12→18:29)
[2021-12-07] MEDS ORDERED: IPRATROPIUM-ALBUTEROL 3 ML NEB INHALATION PRN (18:30)
[2021-12-07] MEDS: IPRATROPIUM-ALBUTEROL 3 ML NEB INHALATION SCH (19:04)
[2021-12-07] MEDS ORDERED: METOCLOPRAMIDE 5 MG/ML 2 ML VIAL IVP PRN (19:58)
[2021-12-07] MEDS ORDERED: SCOPOLAMINE 1.5MG/72HR PATCH TRANSDERM STA (20:39)
[2021-12-07] MEDS: CALCIUM CARBONATE 500 MG CHEWABLE PO SCH (21:53)
[2021-12-07] MEDS: METOPROLOL TARTRATE 25 MG TAB PO SCH (21:53)
[2021-12-07] MEDS: FAMOTIDINE 20 MG TAB PO SCH (23:17)
[2021-12-07] MEDS: MONTELUKAST 10 MG TAB PO SCH (23:17)
[2021-12-07] MEDS: SENNOSIDES-DOCUSATE SODIUM 1 EACH TAB PO SCH (23:18)
[2021-12-07] MEDS ORDERED: ONDANSETRON 4 MG/2 ML VIAL IVP PRN (23:44)
[2021-12-08] MEDS ORDERED: ALPRAZolam 0.5 MG TAB PO PRN (02:22)
[2021-12-08] MEDS ORDERED: IPRATROPIUM-ALBUTEROL 3 ML NEB INHALATION PRN (02:22)
[2021-12-08] MEDS: LEVOTHYROXINE 50 MCG TAB PO SCH (05:34)
[2021-12-08] MEDS: SODIUM CHLORIDE 0.9% 1,000 ML IV SCH ×2 (05:34→23:46)
[2021-12-08] MEDS: HYDROcodone/APAP 5-325MG 1 EACH TAB PO PRN ×3 (05:35→22:46)
--- NOTE | 2021-12-08 06:57 | P.PN ---
Progress Note - Text Progress Note Date: 12/08/21 Postoperative day # 1 status post total knee arthroplasty, under spinal anesthesia, and adductor canal catheter placed for postoperative analgesia, currently at ropivacaine 0.2% 10 mL per hour and continuous infusion, visual analogue scale is 3/10, patient using oral pain medication for breakthrough pain. Assessment and plan= Acute postoperative pain, adductor canal catheter for pain control, pain is well controlled we'll continue the same management.
[2021-12-08] MEDS ORDERED: IPRATROPIUM 0.5 MG/2.5 ML NEBU INHALATION SCH (08:00)
[2021-12-08] MEDS: SYMBICORT 160-4.5 MCG INHALER INHALATION SCH ×3 (08:50→21:52)
[2021-12-08] MEDS: IPRATROPIUM-ALBUTEROL 3 ML NEB INHALATION SCH ×4 (08:50→21:51)
--- NOTE | 2021-12-08 08:57 | P.PN ---
Subjective Progress Note Date: 12/08/21 Principal diagnosis: status post left total knee arthroplasty Patient exam today bedside, she is resting in her hospital bed. Patient did have some increasing pain overnight, the pain catheter was increased. She did have a few episodes of vomiting last night and also with nausea and this has improved. She currently denies any headaches, lightheadedness, chest pain or shortness of breath. Objective - Vital Signs Vital signs: Vital Signs Temp 99.6 F 12/08/21 07:19 Pulse 78 12/08/21 08:51 Resp 16 12/08/21 07:19 BP 122/75 12/08/21 07:19 Pulse Ox 98 12/08/21 07:19 Intake & Output 12/07/21 12/08/21 12/08/21 18:59 06:59 18:59 Intake Total 1101 Output Total 50 Balance 1051 Weight 111.1 kg Intake: IV 1101 Output: Estimated Blood Loss 50 Other: # Voids 1 3 # Bowel Movements 0 - Exam Left lower extremity: Incision is clean, dry, and intact. The exofin fusion tape is in good condition. There is minimal soft tissue swelling and ecchymosis surrounding the medial and lateral aspects of the incision. Calf is soft, no tenderness with palpation. Plantar flexion, dorsiflexion, EHL, FHL are intact. Sensory exam to light touch throughout the extremity is intact, dorsal pedis pulses 2+. Assessment and Plan Assessment: Postoperative day #1 status post left total knee arthroplasty Plan: Pain control, continue with current medications GI and DVT prophylaxis, continue with current medication Encourage incentive spirometer Icing and elevating techniques instructions were discussed PT/OT evaluation, continue weight-bear as tolerated, recommend use of walker at this time Medical recommendations Discharge planning: anticipate discharge on 12/09/2021, we'll reassess later this afternoon Time with Patient: Less than 30
[2021-12-08 09:25] LABS: Basophils # (A) 0.02 X 10*3/uL (0.00-0.10); Basophils % (A) 0.2 %; Eosinophils # (A) 0 X 10*3/uL (0.04-0.35); Eosinophils % (A) 0 %; HCT 37.6 % (37.2-46.3); HGB 11.8 g/dL (12.0-15.0); Immature Grans, Automated 0.4 %; Lymphocytes # (A) 1.45 X 10*3/uL (0.90-5.00); Lymphocytes % (A) 11.9 %; MCH 29.8 pg (27.0-32.0); MCHC 31.4 g/dL (32.0-37.0); MCV 94.9 fL (80.0-97.0); Mean Platelet Volume 11.5 fL (9.5-12.2); Monocytes # (A) 1.12 X 10*3/uL (0.20-1.00); Monocytes % (A) 9.2 %; NRBC Per 100 WBC 0 /100 WBCS (0.0-0.0); Neutrophils # (A) 9.54 X 10*3/uL (1.80-7.70); Neutrophils % (A) 78.3 %; Platelet Count 208 X 10*3/uL (140-440); RBC 3.96 X 10*6/uL (4.10-5.20); WBC 12.18 X 10*3/uL (4.50-10.00)
[2021-12-08] MEDS: ASCORBIC ACID 500 MG TAB PO SCH (09:29)
[2021-12-08] MEDS: CHOLECALCIFEROL 125 MCG (5000 IU) TABLET PO SCH (09:29)
[2021-12-08] MEDS: CALCIUM CARBONATE 500 MG CHEWABLE PO SCH ×2 (09:29→20:24)
[2021-12-08] MEDS: ZINC SULFATE 220 MG CAP PO SCH (09:30)
[2021-12-08] MEDS: RIVAROXABAN 10 MG TAB PO SCH (09:30)
[2021-12-08] MEDS: HYDROmorphone 1 MG/ML 1 ML SYRINGE IVP PRN (09:30)
[2021-12-08] MEDS: METOPROLOL TARTRATE 25 MG TAB PO SCH ×2 (09:30→20:24)
[2021-12-08 09:47] LABS: African American GFR (CKD) 67.3 (60.0-200.0); Albumin 3.6 g/dL (3.8-4.9); Albumin/Globulin Ratio 1.76 (1.60-3.17); Anion Gap 12.4 mmol/L (10.00-18.00); BUN/Creat Ratio 19.14 Ratio (12.00-20.00); Blood Urea Nitrogen 20.1 mg/dL (9.0-27.0); Carbon Dioxide 24.3 mmol/L (20.0-27.5); Globulin 2.1 g/dL (1.6-3.3); Magnesium 2.2 mg/dL (1.5-2.4); Non-African American GFR(CKD) 58.1 (60.0-200.0); Potassium 4.4 mmol/L (3.5-5.5); Total Bilirubin 1.9 mg/dL (0.30-1.20); Total Protein 5.7 g/dL (6.2-8.2)
[2021-12-08] MEDS: LACTOBACILLUS ACIDOPH & BULGAR 1 EACH PACKET PO SCH (10:25)
--- NOTE | 2021-12-08 11:51 | P.PN ---
<Miguel Oakley - Last Filed: 12/08/21 11:44> Subjective Progress Note Date: 12/08/21 Hospital course: Patient is a very pleasant 61-year-old female with a past medical history of CAD, CHF, hypertension, hypothyroidism, osteoarthrosis, tracheobronchial malacia, and obstructive sleep apnea. She is currently admitted to the hospital and is status post left total knee arthroplasty completed by Dr. Govea secondary to left knee severe tricompartmental osteoarthrosis. We have been consulted to follow patient throughout her admission for continued medical management. Physical exam: Patient seen and fully evaluated at the bedside this morning. Patient was resting in bed and appeared to show no signs of acute distress. Patient reports that she continues to have difficulties with ambulation and pain in left knee. Patient has been tolerating oral intake. Vital signs unremarkable with the ex ception of mildly elevated low-grade temp of 99.6F. Hemoglobin decreasing from preop hemoglobin of 13.1 down to 11.8, expected postoperative finding. Patient denies having any headache, lightheadedness, dizziness, chest pain, palpitations, or shortness of breath. Patient again educated on importance of incentive spirometry use. Vital signs reviewed and stable. General: Nontoxic, no distress and appears stated age. Derm: Skin warm and dry, normal coloration for ethnicity. Head: Atraumatic, normocephalic and symmetric. Eyes: EOMs intact, no lid lag, and anicteric sclera Mouth: no lip lesions, mucus membranes moist Cardiovascular: regular rate and rhythm with normal S1S2, no murmur, positive posterior tibial pulses bilaterally, and cap refill < 2 seconds. Lungs: Respirations even, regular, and unlabored on room air. Lungs CTA bilaterally, no rhonchi, no rales, no wheezing, and no accessory muscle usage. Abdominal: soft, nontender to palpation, no guarding, no appreciable orga nomegaly Ext: No gross muscle atrophy, no edema, no contractures. Left lower extremity with postoperative dressing in place and ice packs in place. Neuro: Speech clear, face symmetrical and CN II-XII grossly intact with no noted focal neuro deficits Psych: Alert and oriented to person, place, time, and situation. Appropriate and pleasant affect. Assessment and Plan of Care: Tracheobronchial malacia Obstructive sleep apnea -Provide patient with oxygenation as needed to maintain SpO2 equal to or greater than 90%. -Continue use of home CPAP/BiPAP nightly and as needed. -Strongly encourage use of incentive spirometer 10-15 times hourly while awake. -Continue use of albuterol sulfate inhaler as needed for wheezing and/or shortness of breath, Brio Ellipta, Singulair, and Spiriva Acute postoperative blood loss anemia -Expected finding -We will continue to monitor with repeat a.m. labs. Osteoarthrosis Status post left total knee arthroplasty completed by Dr. Govea on 12/07/21 -Management per primary admitting orthopedic surgery team including pain management, DVT prophylaxis, weightbearing, wound care, and PT/OT. -Patient is currently on Xarelto for DVT prophylaxis. Hypothyroidism -Continue daily medication regimen with levothyroxine. Thank you for allowing us to participate in the care of this pleasant patient. Do not hesitate to contact us with questions. Someone can be reached from the [facility] hospitalist group all hours of the day at [phone] or via [employer]. Objective - Vital Signs Vital signs: Vital Signs Temp 99.6 F 12/08/21 07:19 Pulse 78 12/08/21 09:06 Resp 18 12/08/21 09:45 BP 122/75 12/08/21 07:19 Pulse Ox 98 12/08/21 07:19 Intake & Output 12/07/21 12/08/21 12/08/21 18:59 06:59 18:59 Intake Total 1101 Output Total 50 Balance 1051 Weight 111.1 kg Intake: IV 1101 Output: Estimated Blood Loss 50 Other: # Voids 1 3 # Bowel Movements 0 - Labs CBC & Chem 7: 12/08/21 03:42 12/08/21 03:42 Labs: Abnormal Lab Results - Last 24 Hours (Table) 12/08/21 12/08/21 Range/Units 03:42 03:42 WBC 12.18 H (4.50-10.00) X 10*3/uL RBC 3.96 L (4.10-5.20) X 10*6/uL Hgb 11.8 L (12.0-15.0) g/dL MCHC 31.4 L (32.0-37.0) g/dL Immature Gran # 0.05 H (0.00-0.04) X 10*3/uL Neutrophils # 9.54 H (1.80-7.70) X 10*3/uL Monocytes # 1.12 H (0.20-1.00) X 10*3/uL Eosinophils # 0 L (0.04-0.35) X 10*3/uL Est GFR (CKD-EPI)NonAf 58.1 L (60.0-200.0) Total Bilirubin 1.90 H (0.30-1.20) mg/dL AST 214 H (13-35) U/L ALT 229 H (8-44) U/L Alkaline Phosphatase 186 H (41-126) U/L Total Protein 5.7 L (6.2-8.2) g/dL Albumin 3.6 L (3.8-4.9) g/dL <Nelly Ortega - Last Filed: 12/08/21 16:19> Subjective I reviewed the documentation as provided by the LUIS DANIEL above, who is the original author of this note. I agree with the documented assessment and plan, with the following changes: None Objective - Vital Signs Vital signs: Vital Signs Temp 99.8 F H 12/08/21 14:00 Pulse 84 12/08/21 15:48 Resp 17 12/08/21 14:00 BP 141/76 12/08/21 14:00 Pulse Ox 100 12/08/21 14:00 Intake & Output 12/07/21 12/08/21 12/08/21 18:59 06:59 18:59 Intake Total 1101 Output Total 50 Balance 1051 Weight 111.1 kg Intake: IV 1101 Output: Estimated Blood Loss 50 Other: # Voids 1 3 # Bowel Movements 0 - Labs CBC & Chem 7: 12/08/21 03:42 12/08/21 03:42 Labs: Abnormal Lab Results - Last 24 Hours (Table) 12/08/21 12/08/21 Range/Units 03:42 03:42 WBC 12.18 H (4.50-10.00) X 10*3/uL RBC 3.96 L (4.10-5.20) X 10*6/uL Hgb 11.8 L (12.0-15.0) g/dL MCHC 31.4 L (32.0-37.0) g/dL Immature Gran # 0.05 H (0.00-0.04) X 10*3/uL Neutrophils # 9.54 H (1.80-7.70) X 10*3/uL Monocytes # 1.12 H (0.20-1.00) X 10*3/uL Eosinophils # 0 L (0.04-0.35) X 10*3/uL Est GFR (CKD-EPI)NonAf 58.1 L (60.0-200.0) Total Bilirubin 1.90 H (0.30-1.20) mg/dL AST 214 H (13-35) U/L ALT 229 H (8-44) U/L Alkaline Phosphatase 186 H (41-126) U/L Total Protein 5.7 L (6.2-8.2) g/dL Albumin 3.6 L (3.8-4.9) g/dL
[2021-12-08] MEDS: SENNOSIDES-DOCUSATE SODIUM 1 EACH TAB PO SCH (20:24)
[2021-12-08] MEDS: MONTELUKAST 10 MG TAB PO SCH (20:24)
[2021-12-08] MEDS: FAMOTIDINE 20 MG TAB PO SCH (20:24)
[2021-12-09] MEDS: HYDROcodone/APAP 5-325MG 1 EACH TAB PO PRN ×2 (05:42→11:57)
[2021-12-09] MEDS: LEVOTHYROXINE 50 MCG TAB PO SCH (05:42)
[2021-12-09] MEDS: CALCIUM CARBONATE 500 MG CHEWABLE PO SCH (07:02)
[2021-12-09] MEDS: CHOLECALCIFEROL 125 MCG (5000 IU) TABLET PO SCH (07:03)
[2021-12-09] MEDS: RIVAROXABAN 10 MG TAB PO SCH (07:03)
[2021-12-09] MEDS: METOPROLOL TARTRATE 25 MG TAB PO SCH (07:03)
[2021-12-09] MEDS: ZINC SULFATE 220 MG CAP PO SCH (07:03)
[2021-12-09] MEDS: ASCORBIC ACID 500 MG TAB PO SCH (07:03)
[2021-12-09 07:48] VITALS: RESP 17
[2021-12-09] MEDS: IPRATROPIUM-ALBUTEROL 3 ML NEB INHALATION SCH ×2 (08:37→12:44)
[2021-12-09] MEDS: SYMBICORT 160-4.5 MCG INHALER INHALATION SCH (08:37)
--- NOTE | 2021-12-09 09:58 | P.PN ---
Subjective Progress Note Date: 12/09/21 Principal diagnosis: status post left total knee arthroplasty Patient exam today bedside, she is resting in her hospital chair. Patient did do a little bit more ambulating today. She states the pain is controlled currently. She notices most increase in pain when ambulating. Currently denies any headaches, lightheadedness, chest pain, shortness of breath. Objective - Vital Signs Vital signs: Vital Signs Temp 99.5 F 12/09/21 06:54 Pulse 80 12/09/21 08:49 Resp 17 12/09/21 08:00 BP 116/74 12/09/21 06:54 Pulse Ox 95 12/09/21 06:54 Intake & Output 12/08/21 12/09/21 12/09/21 18:59 06:59 18:59 Other: # Voids 2 1 - Exam Left lower extremity: Incision is clean, dry, and intact. The exofin fusion tape is in good condition. There is minimal soft tissue swelling and ecchymosis surrounding the medial and lateral aspects of the incision. Calf is soft, no tenderness with palpation. Plantar flexion, dorsiflexion, EHL, FHL are intact. Sensory exam to light touch throughout the extremity is intact, dorsal pedis pulses 2+. - Labs CBC & Chem 7: 12/08/21 03:42 12/08/21 03:42 Assessment and Plan Assessment: Postoperative day #2 status post left total knee arthroplasty Plan: Pain control, plan for discharge home on Dow 5 mg/325 mg GI and DVT prophylaxis, Eliquis 2.5 mg twice a day for 2 weeks Encourage incentive spirometer Icing and elevating techniques instructions were discussed PT/OT evaluation, continue weight-bear as tolerated, recommend use of walker at this time Medical recommendations Discharge planning: Discharge home today Time with Patient: Less than 30
--- NOTE | 2021-12-09 10:01 | P.DS ---
Providers Date of admission: 12/07/21 20:54 Expected date of discharge: 12/09/21 Attending physician: Rico Holbrook Consults: 12/07/21 09:41 Consult Physician Routine Consulting Provider: Nelly Ortega Consult Reason/Comments: medical management Do you want consulting provider notified?: Yes Primary care physician: Lucio Potts MD Hospital Course: Date of admission: 12/07/2021 Date of discharge: 12/09/2021 Admission diagnosis: Status post left total knee arthroplasty Discharge diagnosis: Same Attending physician: Dr. Holbrook Surgical procedures: Left total knee arthroplasty Brief history: Patient is a 61-year-old female with a history of progressive primary left knee osteoarthritis. At this point patient has failed conservative treatment measures and has opted to proceed with a elective left total knee arthroplasty. Hospital course: Details of patient's surgery can be found in operative report. Patient tolerated the procedure well and was subsequently transported to orthopedic floor. Patient's orthopeidc and medical care was provided daily. Patient had daily laboratory tests performed for evaluation of overall blood counts. Patient had daily physical therapy to include strengthening range of motion as well as education with walker ambulation. Patient was treated with Xarelto for their postoperative DVT prophylaxis during their inpatient stay. Patient was noted to have a relatively uneventful postoperative course. Patient reported satisfactory pain control with oral pain medications by postoperative day 1. Patient showed satisfactory progress with physical therapy. Patient moved steadily through the program and had no difficulty meeting the goals by postoperative day 2. Given patient's otherwise satisfactory course and having met physical therapy goals, plan is to discharge patient home on postoperative day 2. Discharge condition/disposition: Patient will be discharged home in stable condition. Discharge medications: Instructions are given on resumption of patient's normal daily medications per primary care recommendation, in addition patient will be prescribed [place] 5 mg/325 mg, Colace 100 mg, Eliquis 2.5 mg. Discharge instructions: 1. Wound care and infection precautions, keep incision dry and covered while showering, no lotions, creams, moisturizers. No soaking, tubs, pools, hottubs. Do not scrub over the incision. 2. Weight-bear as tolerated with walker / cane until follow-up. 3. Ice and elevate when necessary. Do not exceed 20 minutes per hour with ice pack. 4. Utilize compression sleeve until seen at first follow up appointment. 5. Visiting nursing care. 6. Home physical therapy including home CPM. 7. Pain meds and anticoagulants per prescription. 8. Pain medication has potential to cause constipation. Increase oral fluid and fiber intake. Contact primary care provider if you have not had a bowel movement within 48 hours after discharge 9. No anti-inflammatory medication until discussed at first post operative visit, this including Motrin, Aleve, Mobic, Diclofenac. 10. Follow up in office at 2 weeks postop with Aakash Barajas PA-C/Praveen Danielson 11. Follow up with your primary care doctor 7-10 days after discharge. 12. Contact [facility] with any questions, . Procedures: Left total knee arthroplasty Patient Condition at Discharge: Good Plan - Discharge Summary Discharge Rx Participant: Yes New Discharge Prescriptions: New Apixaban [Eliquis] 2.5 mg PO BID #30 tab HYDROcodone/APAP 5-325MG [[place] 5-325] 1 - 2 tab PO Q6HR PRN #42 tab PRN Reason: Pain No Action EPINEPHrine (Auto Inject) [Epipen] 0.3 mg IM ONCE PRN PRN Reason: Anaphylaxis Ascorbic Acid [Vitamin C] 500 mg PO DAILY Albuterol Sulfate [Proair Hfa] 1 - 2 puff INHALATION RT-Q4H PRN PRN Reason: Shortness Of Breath Zinc 50 mg PO DAILY Magnesium Oxide [Mag-Ox] 250 mg PO DAILY Potassium Chloride [Klor-Con 20] 20 meq PO HS Furosemide [Lasix] 40 mg PO BID@0700,1500 Montelukast [Singulair] 10 mg PO HS Levothyroxine Sodium [Synthroid] 50 mcg PO QAM Metoprolol Tartrate [Lopressor] 25 mg PO BID Cholecalciferol [Vitamin D3 (25 Mcg = 1000 Iu)] 5,000 unit PO DAILY L.acidoph,Paracasei, B.lactis [Probiotic] 1 cap PO DAILY Diphenox-Atrop 2.5-0.025 mg [Lomotil] 1 tab PO QID PRN PRN Reason: Diarrhea Dicyclomine [Bentyl] 20 mg PO TID PRN PRN Reason: IBS Ipratropium-Albuterol Nebulize [Duoneb 0.5 mg-3 mg/3 ml Soln] 3 ml INHALATION RT-QID PRN PRN Reason: Shortness Of Breath Calcium Carbonate [Calcium] 600 mg PO BID Fluticasone/Vilanterol [Breo Ellipta 200-25 Mcg Inhaler] 1 puff INHALATION QAM Ondansetron Odt [Zofran Odt] 4 mg PO Q8HR PRN #10 tab PRN Reason: Nausea Nystatin 100,000 Unit/gm Powd [Mycostatin Powder] 1 applic TOPICAL DIRECTED PRN PRN Reason: THRUSH RASH Albuterol Inhaler [Ventolin Hfa Inhaler] 2 puff INHALATION QID #1 puff ALPRAZolam [Xanax] 0.5 mg PO TID PRN PRN Reason: Anxiety Famotidine [Pepcid] 40 mg PO HS Tiotropium 2.5 Mcg/Puff [Spiriva Respimat 2.5 Mcg] 2 puff IN QAM SILVER sulfADIAZINE Cream [Silvadene 1% Cream] 1 applic TOPICAL DIRECTED PRN PRN Reason: THRUSH RASH Acetaminophen [Tylenol] 325 - 650 mg PO Q6H PRN PRN Reason: Pain Discharge Medication List Albuterol Sulfate [Proair Hfa] 1 - 2 puff INHALATION RT-Q4H PRN 04/11/14 [History] Ascorbic Acid [Vitamin C] 500 mg PO DAILY 04/11/14 [History] EPINEPHrine (Auto Inject) [Epipen] 0.3 mg IM ONCE PRN 04/11/14 [History] Zinc 50 mg PO DAILY 04/11/14 [History] Magnesium Oxide [Mag-Ox] 250 mg PO DAILY 12/18/14 [History] Furosemide [Lasix] 40 mg PO BID@0700,1500 04/22/15 [History] Potassium Chloride [Klor-Con 20] 20 meq PO HS 04/22/15 [History] Montelukast [Singulair] 10 mg PO HS 12/21/15 [History] Levothyroxine Sodium [Synthroid] 50 mcg PO QAM 03/03/16 [History] Metoprolol Tartrate [Lopressor] 25 mg PO BID 01/09/17 [History] Cholecalciferol [Vitamin D3 (25 Mcg = 1000 Iu)] 5,000 unit PO DAILY 09/10/17 [History] L.acidoph,Paracasei, B.lactis [Probiotic] 1 cap PO DAILY 09/10/17 [History] Dicyclomine [Bentyl] 20 mg PO TID PRN 12/15/18 [History] Diphenox-Atrop 2.5-0.025 mg [Lomotil] 1 tab PO QID PRN 12/15/18 [History] Ipratropium-Albuterol Nebulize [Duoneb 0.5 mg-3 mg/3 ml Soln] 3 ml INHALATION RT-QID PRN 12/15/18 [History] ALPRAZolam [Xanax] 0.5 mg PO TID PRN 01/15/21 [History] Albuterol Inhaler [Ventolin Hfa Inhaler] 2 puff INHALATION QID #1 puff 01/15/21 [Rx] Calcium Carbonate [Calcium] 600 mg PO BID 01/15/21 [History] Famotidine [Pepcid] 40 mg PO HS 01/15/21 [History] Fluticasone/Vilanterol [Breo Ellipta 200-25 Mcg Inhaler] 1 puff INHALATION QAM 01/15/21 [History] Ondansetron Odt [Zofran Odt] 4 mg PO Q8HR PRN #10 tab 10/07/21 [Rx] Acetaminophen [Tylenol] 325 - 650 mg PO Q6H PRN 12/03/21 [History] Nystatin 100,000 Unit/gm Powd [Mycostatin Powder] 1 applic TOPICAL DIRECTED PRN 12/03/21 [History] SILVER sulfADIAZINE Cream [Silvadene 1% Cream] 1 applic TOPICAL DIRECTED PRN 12/03/21 [History] Tiotropium 2.5 Mcg/Puff [Spiriva Respimat 2.5 Mcg] 2 puff IN QAM 12/03/21 [History] Apixaban [Eliquis] 2.5 mg PO BID #30 tab 12/09/21 [Rx] HYDROcodone/APAP 5-325MG [[place] 5-325] 1 - 2 tab PO Q6HR PRN #42 tab 12/09/21 [Rx] Follow up Appointment(s)/Referral(s): Praveen Alonso, PAC [PHYSICIAN [employer] TECHNICIAN] - [address] [facility],Equipment [NON-STAFF] - (*Please call [facility] once home to arrange delivery of the Continuous Passive Motion (CPM) machine. ) [facility], [NON-STAFF] - As Needed ([facility] will call you to schedule your home nursing and physical therapy visits. ) Activity/Diet/Wound Care/Special Instructions: Orthopedic Discharge Instructions: 1. Wound care and infection precautions, keep incision dry and covered while showering, no lotions, creams, moisturizers. No soaking, pools, hot tubs. Do not scrub over incision. 2. Weight-bear as tolerated with walker / cane until follow-up. 3. Ice and elevate when necessary. Do not exceed 20 minutes per hour with ice pack. 4. Utilize compression sleeve until seen at first follow up appointment. 5. Pain meds and anticoagulants per prescription. 6. Pain medication has potential to cause constipation. Increase oral fluid and fiber intake. Contact primary care provider if you have not had a bowel movement within 48 hours after discharge. 7. No anti-inflammatory medication until discussed at first post operative visit, this including Motrin, Aleve, Mobic, Diclofenac. 8. Follow up in office at 2 weeks postop with Aakash Barajas PA-C/Praveen Alonso PA-C 9. Follow up with your primary care doctor 7-10 days after discharge. 10. Contact [facility] with any questions, . Discharge Disposition: HOME WITH HOME HEALTH SERVICES
[2021-12-09] MEDS: LACTOBACILLUS ACIDOPH & BULGAR 1 EACH PACKET PO SCH (10:33)
--- NOTE | 2021-12-09 11:35 | P.PN ---
Subjective Progress Note Date: 12/09/21 No new complaints today. Pt to be discharged. Objective - Vital Signs Vital signs: Vital Signs Temp 99.5 F 12/09/21 06:54 Pulse 80 12/09/21 08:49 Resp 17 12/09/21 08:00 BP 116/74 12/09/21 06:54 Pulse Ox 95 12/09/21 06:54 Intake & Output 12/08/21 12/09/21 12/09/21 18:59 06:59 18:59 Other: # Voids 2 1 - Exam Gen: awake, alert HEENT: normocephalic, atraumatic, good hearing acuity, moist mucous membranes Resp: good air exchange, breathing comfortably with no accessory muscle use CVS: good distal perfusion x 4, GI: soft, NTTP, ND : no SPT, no CVAT, ugarte catheter not present MSK: no pitting edema, no clubbing Neuro: non-focal, moving all extremities Psych: cooperative, euthymic mood - Labs CBC & Chem 7: 12/08/21 03:42 12/08/21 03:42 Assessment and Plan Assessment: Tracheobronchial malacia Obstructive sleep apnea -Provide patient with oxygenation as needed to maintain SpO2 equal to or greater than 90%. -Continue use of home CPAP/BiPAP nightly and as needed. -Strongly encourage use of incentive spirometer 10-15 times hourly while awake. -Continue use of albuterol sulfate inhaler as needed for wheezing and/or shortness of breath, Brio Ellipta, Singulair, and Spiriva Acute postoperative blood loss anemia -Expected finding -We will continue to monitor with repeat a.m. labs. Osteoarthrosis Status post left total knee arthroplasty completed by Dr. Govea on 12/07/21 -Management per primary admitting orthopedic surgery team including pain manag ement, DVT prophylaxis, weightbearing, wound care, and PT/OT. -Patient is currently on Xarelto for DVT prophylaxis. Hypothyroidism -Continue daily medication regimen with levothyroxine. Thank you for allowing us to participate in the care of this pleasant patient. Do not hesitate to contact us with questions. Someone can be reached from the [facility] hospitalist group all hours of the day at [phone] or via perfect serve.
[2021-12-09 14:17] VITALS: BP 124/73; PULSE 87; TEMP 98.7
== END 2021-12-09 14:43 | disposition home health service (06) ==
LOC: OR 05:52 → 4SSUR 09:50 → OR 20:54 → 4SSUR 12-09 00:06
PROVIDERS: ADMIT Orthopaedic Surgery; ATTEND Orthopaedic Surgery
DX: M17.12 Unilateral primary osteoarthritis, left knee (principal); D62 Acute posthemorrhagic anemia; I11.0 Hypertensive heart disease with heart failure; I50.9 Heart failure, unspecified; J44.9 Chronic obstructive pulmonary disease, unspecified; G47.33 Obstructive sleep apnea (adult) (pediatric); I25.10 Atherosclerotic heart disease of native coronary artery without angina pectoris; K21.9 Gastro-esophageal reflux disease without esophagitis; Z20.822 Contact with and (suspected) exposure to COVID-19; E03.9 Hypothyroidism, unspecified; E66.9 Obesity, unspecified; Z68.38 Body mass index [BMI] 38.0-38.9, adult; Z71.3 Dietary counseling and surveillance; R49.0 Dysphonia; R13.10 Dysphagia, unspecified; M41.9 Scoliosis, unspecified; M47.9 Spondylosis, unspecified; K44.9 Diaphragmatic hernia without obstruction or gangrene; F41.9 Anxiety disorder, unspecified; G62.9 Polyneuropathy, unspecified; Z79.899 Other long term (current) drug therapy; Z79.890 Hormone replacement therapy; Z91.010 Allergy to peanuts; Z91.030 Bee allergy status; Z88.6 Allergy status to analgesic agent; Z88.2 Allergy status to sulfonamides; Z88.1 Allergy status to other antibiotic agents; Z90.49 Acquired absence of other specified parts of digestive tract; Z86.73 Personal history of transient ischemic attack (TIA), and cerebral infarction without residual deficits; Z98.51 Tubal ligation status; Z86.16 Personal history of COVID-19; Z98.49 Cataract extraction status, unspecified eye; Z86.19 Personal history of other infectious and parasitic diseases; Z82.3 Family history of stroke; Z80.3 Family history of malignant neoplasm of breast; Z82.49 Family history of ischemic heart disease and other diseases of the circulatory system; Z80.9 Family history of malignant neoplasm, unspecified
CPT/HCPCS: 27447; 94640 ×5; 97530; 97161; 97535; 97166; 64999; 64448; 76942; 86900; 86901; 80053; 83735; 85025; 86850; 88300; 87635; 73560; 36415; G0378 ×3; C1713; C1776; J2250; J1100; J2765; J0690 ×2; J2405; J3010; J1170 ×3; J2795 ×2; J2370; J2704

== ENCOUNTER 2022-07-20 14:08 | Emergency (ER) | payer BC ==
--- NOTE | 2022-07-20 15:09 | ED ---
General Adult HPI - General Chief complaint: Fever Stated complaint: SOB, Fever, Cough Time Seen by Provider: 07/20/22 14:58 Source: patient Mode of arrival: ambulatory Limitations: no limitations - History of Present Illness Initial comments: This patient is 61-year-old woman who presents to have evaluation for constellation of symptoms that started yesterday. She began to develop congestion, sinus headache, cough, hot and cold feelings, and body aches. She states that on the day prior her son had come to visit her and was not feeling well she administered a Covid test that was positive. She states she had taken a home Covid test herself in the evening and it was negative. He continued feel worse today and presents to have evaluation. Onset/Timin -: days(s) Consistency: constant Improves with: none Worsens with: none Associated Symptoms: cough Treatments Prior to Arrival: none - Related Data Home Medications Medication Instructions Recorded Confirmed Albuterol Sulfate [Proair Hfa] 1 - 2 puff INHALATION RT-Q4H PRN 04/11/14 12/07/21 Ascorbic Acid [Vitamin C] 500 mg PO DAILY 04/11/14 12/07/21 EPINEPHrine (Auto Inject) [Epipen] 0.3 mg IM ONCE PRN 04/11/14 12/07/21 Zinc 50 mg PO DAILY 04/11/14 12/07/21 Magnesium Oxide [Mag-Ox] 250 mg PO DAILY 12/18/14 12/07/21 Furosemide [Lasix] 40 mg PO BID@0700,1500 04/22/15 12/07/21 Potassium Chloride [Klor-Con 20] 20 meq PO HS 04/22/15 12/07/21 Montelukast [Singulair] 10 mg PO HS 12/21/15 12/07/21 Levothyroxine Sodium [Synthroid] 50 mcg PO QAM 03/03/16 12/07/21 Metoprolol Tartrate [Lopressor] 25 mg PO BID 01/09/17 12/07/21 Cholecalciferol [Vitamin D3 (25 5,000 unit PO DAILY 09/10/17 12/07/21 Mcg = 1000 Iu)] L.acidoph,Paracasei, B.lactis 1 cap PO DAILY 09/10/17 12/07/21 [Probiotic] Dicyclomine [Bentyl] 20 mg PO TID PRN 12/15/18 12/07/21 Diphenox-Atrop 2.5-0.025 mg 1 tab PO QID PRN 12/15/18 12/07/21 [Lomotil] Ipratropium-Albuterol Nebulize 3 ml INHALATION RT-QID PRN 12/15/18 12/07/21 [Duoneb 0.5 mg-3 mg/3 ml Soln] ALPRAZolam [Xanax] 0.5 mg PO TID PRN 01/15/21 12/07/21 Calcium Carbonate [Calcium] 600 mg PO BID 01/15/21 12/07/21 Famotidine [Pepcid] 40 mg PO HS 01/15/21 12/07/21 Fluticasone/Vilanterol [Breo 1 puff INHALATION QAM 01/15/21 12/07/21 Ellipta 200-25 Mcg Inhaler] Acetaminophen [Tylenol] 325 - 650 mg PO Q6H PRN 12/03/21 12/07/21 Nystatin 100,000 Unit/gm Powd 1 applic TOPICAL DIRECTED PRN 12/03/21 12/07/21 [Mycostatin Powder] SILVER sulfADIAZINE Cream 1 applic TOPICAL DIRECTED PRN 12/03/21 12/07/21 [Silvadene 1% Cream] Tiotropium 2.5 Mcg/Puff [Spiriva 2 puff IN QAM 12/03/21 12/07/21 Respimat 2.5 Mcg] Previous Rx's Medication Instructions Recorded Albuterol Inhaler [Ventolin Hfa 2 puff INHALATION QID #1 puff 01/15/21 Inhaler] Ondansetron Odt [Zofran ODT] 4 mg PO Q8HR PRN #10 tab 10/07/21 Apixaban [Eliquis] 2.5 mg PO BID #30 tab 12/09/21 HYDROcodone/APAP 5-325MG [[place] 1 - 2 tab PO Q6HR PRN #42 tab 12/09/21 5-325] Allergies Allergy/AdvReac Type Severity Reaction Status Date / Time Aminoglycosides Allergy Unknown Verified 07/20/22 14:17 honey Allergy Anaphylaxis Verified 07/20/22 14:17 moxifloxacin HCl Allergy Unknown Verified 07/20/22 14:17 [From Avelox] peanut Allergy Anaphylaxis Verified 07/20/22 14:17 azithromycin [From Zithromax] AdvReac Nausea & Verified 07/20/22 14:17 Vomiting & Diarrhea clindamycin AdvReac Dyspnea Verified 07/20/22 14:17 levofloxacin [From Levaquin] AdvReac Dyspnea, Verified 07/20/22 14:17 THROAT SWOLLEN neomycin [Neomycin] AdvReac Dyspnea Verified 07/20/22 14:17 omalizumab [From Xolair] AdvReac Dyspnea Verified 07/20/22 14:17 trimethoprim [From Bactrim] AdvReac Diarrhea/co Verified 07/20/22 14:17 litis Review of Systems ROS Statement: Those systems with pertinent positive or pertinent negative responses have been documented in the HPI. ROS Other: All systems not noted in ROS Statement are negative. Constitutional: Reports: fever, chills ENT: Reports: throat pain, congestion Respiratory: Reports: cough. Denies: dyspnea Gastrointestinal: Reports: nausea. Denies: abdominal pain, vomiting Genitourinary: Denies: dysuria, hematuria Musculoskeletal: Denies: back pain Skin: Denies: rash Neurological: Denies: headache, weakness, numbness Past Medical History Past Medical History: Asthma, Heart Failure, COPD, CVA/TIA, Deep Vein Thrombosis (DVT), GERD/Reflux, Hypertension, Osteoarthritis (OA), Respiratory Disorder, Sleep Apnea/CPAP/BIPAP, Syncope, Thyroid Disorder Additional Past Medical History / Comment(s): 01/15/21 pt tested covid + at [facility]. Other hx: Paradoxical vocal cord function/episodic dysphonia, dysphagia, tracheobronchial malasia, severe persistent bronchial asthma. ARAMIS with Cpap. TIA. scoliosis/spondylosis. neuropathy bilateral lower legs/feet. anemi. lower GI bleed. Cdiff colitis, hiatal hernia, tachycardia, hypothyroid History of Any Multi-Drug Resistant Organisms: C-DIFF Date of last positivie culture/infection: 04/22/15 MDRO Source:: stool Past Surgical History: Breast Surgery, Cholecystectomy, Heart Catheterization, Orthopedic Surgery, Tubal Ligation, Uterine Ablation Additional Past Surgical History / Comment(s): Multiple bronchoscopies, colonoscopy with benign polypectomy, bowel resection d/t perforation during colonoscopy, cyst removed near esophagus, vocal cords scrapped, L breast benign bx, D&C, bilateral knee arthroscopies with R side done twice, R arm tendon release. Past Anesthesia/Blood Transfusion Reactions: Postoperative Nausea & Vomiting (PONV) Additional Past Anesthesia/Blood Transfusion Reaction / Comment(s): Pt has never recieved blood. Past Psychological History: Anxiety Smoking Status: Never smoker Past Alcohol Use History: None Reported Past Drug Use History: None Reported - Past Family History Father Family Medical History: Cancer, Congestive Heart Failure (CHF), CVA/TIA, Myocardial Infarction (AL), Prostate Disorder Additional Family Medical History / Comment(s): at age 84- chocked on a hot dog Mother Family Medical History: Cancer, Osteoarthritis (OA) Additional Family Medical History / Comment(s): Breast cancer General Exam Limitations: no limitations General appearance: alert, in no apparent distress Head exam: Present: atraumatic, normocephalic Eye exam: Present: normal appearance. Absent: scleral icterus, conjunctival injection Respiratory exam: Present: normal lung sounds bilaterally, other (Frequent nonproductive cough during exam). Absent: respiratory distress, wheezes, rales, rhonchi, stridor Cardiovascular Exam: Present: regular rate, normal rhythm, normal heart sounds. Absent: systolic murmur, diastolic murmur, rubs, gallop GI/Abdominal exam: Present: soft. Absent: distended, tenderness, guarding, rebound Extremities exam: Present: normal inspection, normal capillary refill. Absent: pedal edema, calf tenderness Back exam: Present: normal inspection Neurological exam: Present: alert Skin exam: Present: warm, dry, intact, normal color. Absent: rash Course Vital Signs 07/20/22 07/20/22 14:14 15:18 Temperature 101.8 F H Pulse Rate 97 Respiratory 22 20 Rate Blood Pressure 109/74 O2 Sat by Pulse 99 Oximetry Medical Decision Making - Medical Decision Making Patient is 61-year-old woman presenting with symptoms consistent with COVID-19 infection. She does test positive for code infection. I checked the pulse ox at the bedside and it is reading 100% on room air. Patient in no respiratory distress. There is thorough review of patient's medical record including the scope with Dr. Acosta that did not fact show tracheomalacia but did show paradoxic vocal cord movement resulting in element of stridor. Discussed appropriate further care and follow-up as well as return parameters. - Lab Data Lab Results 07/20/22 Range/Units 14:40 Coronavirus (PCR) Detected A (Not Detectd) Disposition Clinical Impression: COVID-19 Disposition: HOME SELF-CARE Condition: Good Instructions (If sedation given, give patient instructions): COVID-19 (Coronavirus Disease 2019) (ED) Is patient prescribed a controlled substance at d/c from ED?: No Referrals: Lucio Potts MD [Primary Care Provider] - 1-2 days
[2022-07-20 15:20] VITALS: RESP 20
--- NOTE | 2022-07-20 15:47 | XR ---
EXAMINATION TYPE: XR chest 1V portable DATE OF EXAM: 07/20/2022 COMPARISON: Chest x-ray October 07, 2021 HISTORY: Causing difficulty breathing with fever. TECHNIQUE: Single frontal view of the chest is obtained. FINDINGS: There R some chronic parenchymal changes bilaterally thought present without suspicious fo beverly air space opacity, pleural effusion, or pneumothorax seen. The cardiac silhouette size is stable and within normal limits. Underlying dextroconvex scoliosis centered mid to lower thoracic spine is present. Cholecystectomy clips are seen. IMPRESSION: No acute pulmonary process.
[2022-07-20] MEDS ORDERED: ACETAMINOPHEN TAB 325 MG TAB PO STA (16:19)
[2022-07-20] MEDS ORDERED: IBUPROFEN 400 MG TAB PO STA (16:19)
[2022-07-20 16:30] VITALS: BP 124/63; PULSE 95; TEMP 102.8
== END 2022-07-20 16:31 | disposition home or self-care (01) ==
LOC: EC 14:08
DX: U07.1 COVID-19 (principal); J45.909 Unspecified asthma, uncomplicated; I11.0 Hypertensive heart disease with heart failure; E07.9 Disorder of thyroid, unspecified; Z79.899 Other long term (current) drug therapy; Z88.3 Allergy status to other anti-infective agents; Z88.1 Allergy status to other antibiotic agents; Z91.018 Allergy to other foods; Z91.010 Allergy to peanuts
CPT/HCPCS: 71045; 87635; 99285

== ENCOUNTER → 2022-08-03 | Outpatient (CLI) | payer BC ==
--- NOTE | 2022-08-03 10:02 | XR ---
EXAMINATION TYPE: XR chest 2V DATE OF EXAM: 08/03/2022 9:54 AM COMPARISON: Chest radiographs from 07/20/2022. TECHNIQUE: XR chest 2V Frontal and lateral views of the chest. CLINICAL INDICATION:Female, 61 years old with history of J45.909 UNSPECIFIED ASTHMA, UNCOMPLICATED; FINDINGS: Lungs/Pleura: There is no evidence of pleural effusion, focal consolidation, or pneumothorax. Chroni c parenchymal changes bilaterally. Pulmonary vascularity: Unremarkable. Heart/mediastinum: Cardiomediastinal silhouette is unremarkable. Musculoskeletal: No acute osseous pathology. Dextroscoliotic curvature of the thoracic spine. Other findings: Postsurgical clips in the right upper quadrant. IMPRESSION: No acute cardiopulmonary disease/process. No significant change from prior examination.
== END | disposition home or self-care (01) ==
LOC: RADXRMAIN 09:41
PROVIDERS: ATTEND Internal Medicine
DX: J45.909 Unspecified asthma, uncomplicated (principal)
CPT/HCPCS: 71046

== ENCOUNTER 2022-09-26 14:45 | Emergency (ER) | payer BC ==
[2022-09-26 14:56] VITALS: RESP 16
--- NOTE | 2022-09-26 17:33 | CT ---
EXAMINATION TYPE: CT brain wo con CT DLP: 1174.4 mGycm, Automated exposure control for dose reduction was used. DATE OF EXAM: 09/26/2022 5:13 PM COMPARISON: 01/01/2012. CLINICAL INDICATION:Female, 61 years old with history of toys fell on head, pain on top of head after toys fell on her head. TECHNIQUE: Brain: Axial CT images of the brain were obtained with coronal and sagittal reformats created and rev iewed. Contrast used: None. Oral contrast used: None. FINDINGS: Brain: Extra-axial spaces: No abnormal extra-axial fluid collections. Cerebri lipoma. Ventricular system: Within normal limits Cerebral parenchyma: No acute intraparenchymal hemorrhage or mass effect. The pack-white junction is well differentiated. Cerebellum: Unremarkable. Mass effect: No evidence of midline shift. Intracranial vasculature: Atherosclerotic calcifications of the intracranial vessels. Soft tissues: Normal. Calvarium/osseous structures: No depressed skull fracture. Paranasal sinuses and mastoid air cells: Mild scattered paranasal sinus disease. Visualized orbits: Orbital contents are intact. IMPRESSION: No acute intracranial process.
[2022-09-26] MEDS ORDERED: ACETAMINOPHEN TAB 500 MG TAB PO STA (18:43)
[2022-09-26] MEDS ORDERED: KETOROLAC 15 MG/ML 1 ML VIAL IVP STA (18:43)
--- NOTE | 2022-09-26 18:44 | ED ---
General Adult HPI - General Chief complaint: Head Injury Stated complaint: head injury - headache Time Seen by Provider: 09/26/22 18:30 Source: patient, RN notes reviewed, old records reviewed Mode of arrival: ambulatory Limitations: no limitations - History of Present Illness Initial comments: Patient is a 61-year-old female with past medical history remarkable for chronic asthma, tracheomalacia, who presents emergency Department complaining of head pain after multiple leapfrog computers fall off the top shelf at the store and struck her in the head. She denies LOC. Denies any nausea or vomiting. Is not on blood thinners. Injury occurred earlier this morning, and she presents today this afternoon for further evaluation over concern for her headache. Denies any blurry vision or any weakness or numbness. No other acute complaints at this time. No other injuries. Denies neck pain, chest pain, abdominal pain. Presents for further evaluation at this time. - Related Data Home Medications Medication Instructions Recorded Confirmed Albuterol Sulfate [Proair Hfa] 1 - 2 puff INHALATION RT-Q4H PRN 04/11/14 12/07/21 Ascorbic Acid [Vitamin C] 500 mg PO DAILY 04/11/14 12/07/21 EPINEPHrine (Auto Inject) [Epipen] 0.3 mg IM ONCE PRN 04/11/14 12/07/21 Zinc 50 mg PO DAILY 04/11/14 12/07/21 Magnesium Oxide [Mag-Ox] 250 mg PO DAILY 12/18/14 12/07/21 Furosemide [Lasix] 40 mg PO BID@0700,1500 04/22/15 12/07/21 Potassium Chloride [Klor-Con 20] 20 meq PO HS 04/22/15 12/07/21 Montelukast [Singulair] 10 mg PO HS 12/21/15 12/07/21 Levothyroxine Sodium [Synthroid] 50 mcg PO QAM 03/03/16 12/07/21 Metoprolol Tartrate [Lopressor] 25 mg PO BID 01/09/17 12/07/21 Cholecalciferol [Vitamin D3 (25 5,000 unit PO DAILY 09/10/17 12/07/21 Mcg = 1000 Iu)] L.acidoph,Paracasei, B.lactis 1 cap PO DAILY 09/10/17 12/07/21 [Probiotic] Dicyclomine [Bentyl] 20 mg PO TID PRN 12/15/18 12/07/21 Diphenox-Atrop 2.5-0.025 mg 1 tab PO QID PRN 12/15/18 12/07/21 [Lomotil] Ipratropium-Albuterol Nebulize 3 ml INHALATION RT-QID PRN 12/15/18 12/07/21 [Duoneb 0.5 mg-3 mg/3 ml Soln] ALPRAZolam [Xanax] 0.5 mg PO TID PRN 01/15/21 12/07/21 Calcium Carbonate [Calcium] 600 mg PO BID 01/15/21 12/07/21 Famotidine [Pepcid] 40 mg PO HS 01/15/21 12/07/21 Fluticasone/Vilanterol [Breo 1 puff INHALATION QAM 01/15/21 12/07/21 Ellipta 200-25 Mcg Inhaler] Acetaminophen [Tylenol] 325 - 650 mg PO Q6H PRN 12/03/21 12/07/21 Nystatin 100,000 Unit/gm Powd 1 applic TOPICAL DIRECTED PRN 12/03/21 12/07/21 [Mycostatin Powder] SILVER sulfADIAZINE Cream 1 applic TOPICAL DIRECTED PRN 12/03/21 12/07/21 [Silvadene 1% Cream] Tiotropium 2.5 Mcg/Puff [Spiriva 2 puff IN QAM 12/03/21 12/07/21 Respimat 2.5 Mcg] Previous Rx's Medication Instructions Recorded Albuterol Inhaler [Ventolin Hfa 2 puff INHALATION QID #1 puff 01/15/21 Inhaler] Ondansetron Odt [Zofran ODT] 4 mg PO Q8HR PRN #10 tab 10/07/21 Apixaban [Eliquis] 2.5 mg PO BID #30 tab 12/09/21 HYDROcodone/APAP 5-325MG [[place] 1 - 2 tab PO Q6HR PRN #42 tab 12/09/21 5-325] Allergies Allergy/AdvReac Type Severity Reaction Status Date / Time Aminoglycosides Allergy Unknown Verified 09/26/22 14:56 honey Allergy Anaphylaxis Verified 09/26/22 14:56 moxifloxacin HCl Allergy Unknown Verified 09/26/22 14:56 [From Avelox] peanut Allergy Anaphylaxis Verified 09/26/22 14:56 azithromycin [From Zithromax] AdvReac Nausea & Verified 09/26/22 14:56 Vomiting & Diarrhea clindamycin AdvReac Dyspnea Verified 09/26/22 14:56 levofloxacin [From Levaquin] AdvReac Dyspnea, Verified 09/26/22 14:56 THROAT SWOLLEN neomycin [Neomycin] AdvReac Dyspnea Verified 09/26/22 14:56 omalizumab [From Xolair] AdvReac Dyspnea Verified 09/26/22 14:56 trimethoprim [From Bactrim] AdvReac Diarrhea/co Verified 09/26/22 14:56 litis Review of Systems ROS Statement: Those systems with pertinent positive or pertinent negative responses have been documented in the HPI. Review of Systems: CONST: Denies fever EYES: Denies blurry vision ENT: Denies nasal congestion C/V: Denies Chest pain RESP: Denies shortness of breath GI: Denies abdominal pain : Denies dysuria SKIN: Denies rash. MSK: Denies joint pain. NEURO: Endorses headache ROS Other: All systems not noted in ROS Statement are negative. Past Medical History Past Medical History: Asthma, Heart Failure, COPD, CVA/TIA, Deep Vein Thrombosis (DVT), GERD/Reflux, Hypertension, Osteoarthritis (OA), Respiratory Disorder, Sleep Apnea/CPAP/BIPAP, Syncope, Thyroid Disorder Additional Past Medical History / Comment(s): 01/15/21 pt tested covid + at [facility]. Other hx: Paradoxical vocal cord function/episodic dysphonia, dysphagia, tracheobronchial malasia, severe persistent bronchial asthma. ARAMIS with Cpap. TIA. scoliosis/spondylosis. neuropathy bilateral lower legs/feet. anemi. lower GI bleed. Cdiff colitis, hiatal hernia, tachycardia, hypothyroid History of Any Multi-Drug Resistant Organisms: C-DIFF Date of last positivie culture/infection: 04/22/15 MDRO Source:: stool Past Surgical History: Breast Surgery, Cholecystectomy, Heart Catheterization, Orthopedic Surgery, Tubal Ligation, Uterine Ablation Additional Past Surgical History / Comment(s): Multiple bronchoscopies, colonoscopy with benign polypectomy, bowel resection d/t perforation during colonoscopy, cyst removed near esophagus, vocal cords scrapped, L breast benign bx, D&C, bilateral knee arthroscopies with R side done twice, R arm tendon release. Past Anesthesia/Blood Transfusion Reactions: Postoperative Nausea & Vomiting (PONV) Additional Past Anesthesia/Blood Transfusion Reaction / Comment(s): Pt has never recieved blood. Past Psychological History: Anxiety Smoking Status: Never smoker Past Alcohol Use History: None Reported Past Drug Use History: None Reported - Past Family History Father Family Medical History: Cancer, Congestive Heart Failure (CHF), CVA/TIA, Myocardial Infarction (MT), Prostate Disorder Additional Family Medical History / Comment(s): at age 84- chocked on a hot dog Mother Family Medical History: Cancer, Osteoarthritis (OA) Additional Family Medical History / Comment(s): Breast cancer General Exam - General Exam Comments Initial Comments: General: Appears in no acute distress. HEAD: Normal with no signs of head trauma. Negative Hankins sign, negative raccoon eyes. EYES: PERRLA, EOMI, conjunctiva normal, no discharge. Pupils 2 mm and equal bilaterally. ENT: Hearing grossly intact, normal oropharynx. RESPIRATORY: Clear breath sounds bilaterally. No wheezes, rales, or rhonchi. C/V: Regular rate and rhythm. S1 and S2 auscultated, peripheral pulses 2+ and intact throughout ABD: Abd is soft, nontender, nondistended EXT: Normal range of motion, no obvious deformity. No midline cervical, thoracic, lumbar spine tenderness to palpation. SKIN: No rashes or lesions observed on exposed skin. NEURO: Alert and oriented x 4. Cranial nerves II-XII intact. No focal sensory or strength deficits. GCS of 15. NIH of 0. Limitations: no limitations Course Vital Signs 09/26/22 09/26/22 14:51 19:00 Temperature 97.6 F 98.2 F Pulse Rate 83 78 Respiratory 16 16 Rate Blood Pressure 128/78 O2 Sat by Pulse 100 98 Oximetry Medical Decision Making - Medical Decision Making Based on the patient's presentation and physical exam, I'm concerned for possible intracranial injury. The patient. Had multiple heavy objects: Her head at the store. She is currently complaining of a headache. I evaluated the patient in the ATP room. This is after she had already received a CT brain while she was in triage. CT brain is interpreted by myself reveals no evidence of acute intracranial injury, hemorrhage, mass effect. I discussed results with the patient. Vital signs are within acceptable limits. We discussed the possibility that she may have mild concussive symptoms symptoms which we discussed including nausea and vomiting. She'll be given Toradol as well as Tylenol for pain control. Recommended close follow-up with her PCP. Strict return precautions were discussed. She was in agreement with this plan. She'll be discharged home at this time. I instructed the patient to follow up with their PCP in the next 1-3 days. I explained that the patient should return to the emergency department if they experience any worsening symptoms. Strict return precautions were discussed with the patient. The patient expressed understanding of these instructions. I answered all questions that the patient had. The patient was discharged home in good condition with their prescriptions and follow up information. Disposition Clinical Impression: Headache, Head contusion Disposition: HOME SELF-CARE Condition: Good Instructions (If sedation given, give patient instructions): Concussion (ED) Is patient prescribed a controlled substance at d/c from ED?: No Referrals: Lucio Potts MD [Primary Care Provider] - 1-2 days Time of Disposition: 18:44
[2022-09-26 19:02] VITALS: BP 128/78; PULSE 78; TEMP 98.2
== END 2022-09-26 19:00 | disposition home or self-care (01) ==
LOC: EC 14:45
DX: S00.93XA Contusion of unspecified part of head, initial encounter (principal); R51.9 Headache, unspecified; J44.9 Chronic obstructive pulmonary disease, unspecified; I11.0 Hypertensive heart disease with heart failure; I50.9 Heart failure, unspecified; G47.30 Sleep apnea, unspecified; E03.9 Hypothyroidism, unspecified; F41.9 Anxiety disorder, unspecified; G45.9 Transient cerebral ischemic attack, unspecified; Z79.899 Other long term (current) drug therapy; Z79.890 Hormone replacement therapy; Z88.1 Allergy status to other antibiotic agents; Z91.030 Bee allergy status; Z91.010 Allergy to peanuts; Z88.2 Allergy status to sulfonamides; Z88.8 Allergy status to other drugs, medicaments and biological substances; Z86.16 Personal history of COVID-19; W18.30XA Fall on same level, unspecified, initial encounter; Y92.512 Supermarket, store or market as the place of occurrence of the external cause
CPT/HCPCS: 70450; 99284; 96374; J1885

== ENCOUNTER → 2022-12-28 | Outpatient (CLI) | payer BC ==
--- NOTE | 2022-12-29 07:53 | MM ---
Reason for Exam: Screening (asymptomatic). Last mammogram was performed 1 year(s) and 1 month(s) ago. Patient History: Menarche at age 14. First Full-Term at age 26. Postmenopausal. Patient has history of breast feeding. 10/02/2007, Benign Ultrasound-Guided FNA Biopsy on the left side. 10/02/2007, Bilateral Benign Core Biopsy. 03/19/2013, Cancelled Left Mammotome on the left side. Mother had breast cancer, age 60. Risk Values: Charisma 5 year model risk: 4.1%. NCI Lifetime model risk: 19.6%. Prior Study Comparison: 01/08/2016 Bilateral Screening Mammogram, [facility]. 06/27/2018 Bilateral Screening Mammogram, [facility]. 11/26/2021 Bilateral Screening Mammogram, [facility]. Tissue Density: The breast tissue is heterogeneously dense. This may lower the sensitivity of mammography. Findings: Analyzed By CAD. Left breast biopsy clip There is no suspicious group of microcalcifications or new suspicious mass in either breast. Overall Assessment: Negative, BI-RAD 1 Management: Screening Mammogram of both breasts in 1 year. A clinical breast exam by your physician is recommended on an annual basis and results should be correlated with mammographic findings. [facility] will attempt to contact patient to return for supplemental views and ultrasound if indicated. Electronically signed and approved by: Sanjay Cisse DO
== END | disposition home or self-care (01) ==
LOC: RADMAMWWP 16:04
PROVIDERS: ATTEND Internal Medicine
DX: Z12.31 Encounter for screening mammogram for malignant neoplasm of breast (principal); Z78.0 Asymptomatic menopausal state
CPT/HCPCS: 77067

== ENCOUNTER 2023-04-28 06:37 | Day surgery (SDC) | payer BC ==
[2023-04-26 08:50] VITALS: BMI 41.2
[2023-04-28] MEDS ORDERED: LACTATED RINGERS 1,000 ML IV SCH (07:19)
[2023-04-28 07:55] VITALS: TEMP 97.5
[2023-04-28] MEDS ORDERED: PROPOFOL 10 MG/ML 20 ML VIAL IV ONE (08:00)
[2023-04-28] MEDS ORDERED: LIDOCAINE 2% INJ 20 MG/ML (2 ML VIAL) ONE (08:00)
--- NOTE | 2023-04-28 08:49 | P.PCN ---
Date of Procedure: 04/28/23 Procedure(s) Performed: Brief history: Patient is a pleasant 62-year-old white female scheduled for an elective upper endoscopy as well as colonoscopy as a part of evaluation of GERD/abdominal pain/change in bowel habits and screening for colon cancer Procedure performed: Esophagogastroduodenoscopy with biopsy Colonoscopy with snare polypectomy and Endo Clip placement Preoperative diagnosis: Long-standing history of GERD Chronic abdominal pain and change in bowel habits Screening for colon cancer Anesthesia: MAC Procedure: After informed consent was obtained from the patient was brought into the endoscopy unit and IV sedation was administered by anesthesia under continuous monitoring. Initially upper endoscopy was done. The Olympus GF 160 video endoscope was inserted inserted into the mouth and esophagus intubated without any difficulty and was gradually advanced into the stomach and duodenum and carefully examined. The bulb and second part of the duodenum appeared normal. The scope was then withdrawn into the stomach adequately insufflated with air and upon careful examination the antrum had mild gastritis and biopsies were done from this area. Mucosa of the body, cardia and fundus appeared normal. In the postbulbar gastric polyps noted. The scope was then withdrawn into the esophagus. Small hiatal hernia noted. The GE junction was located at 38 cm to the incisors. It appeared regular with no erythema erosions or ulcerations. Rest of the esophagus appeared normal. Patient tolerated the procedure well. At this time the patient continued to remain sedation. Initial digital rectal examination was normal. Olympus CF 160 video colonoscope was then inserted into the rectum and gradually advanced to the cecum without any difficulty. Careful examination was performed as the scope was gradually being withdrawn. The prep was excellent. The cecum, we normal. In the ascending colon colon there was a 1 cm and 3 cm broad-based polyp that was removed by piecemeal snare polypectomy followed by Endo Clip placement. The polyps were retrieved using a Olmos net. R est of the ascending colon, transverse colon, descending colon, sigmoid colon and rectum appeared normal. In the proximal rectum was a 1 cm polyp removed by snare polypectomy. Retroflexion was performed in the rectum and no lesions were noted. Patient tolerated the procedure well. Impression: 1. Upper endoscopy revealed mild antral gastritis, small hiatal hernia and multiple gastric polyps 2. Colonoscopy revealed 1 cm and 3 cm descending colon polyp status post piecemeal snare polypectomy followed by Endo Clip placement and complete polypectomy accomplished, 1 cm proximal rectal polyp status post polypectomy Recommendations: Findings of this examination were discussed with the patient as well as her family. She was advised to follow with the biopsy results. If the biopsy is adenoma she can have a repeat colonoscopy in 3 years.
[2023-04-28 08:57] VITALS: RESP 16
[2023-04-28 09:05] VITALS: BP 113/77; PULSE 77
== END 2023-04-28 09:45 | disposition home or self-care (01) ==
LOC: ORWHC2ENDO 06:37
PROVIDERS: ATTEND Internal Medicine Gastroenterology
DX: Z12.11 Encounter for screening for malignant neoplasm of colon (principal); D12.2 Benign neoplasm of ascending colon; D12.8 Benign neoplasm of rectum; D72.820 Lymphocytosis (symptomatic); G89.29 Other chronic pain; K29.50 Unspecified chronic gastritis without bleeding; K31.7 Polyp of stomach and duodenum; K44.9 Diaphragmatic hernia without obstruction or gangrene; Z79.899 Other long term (current) drug therapy
CPT/HCPCS: 88305; 45385; 43239; J2704; J2001

== ENCOUNTER 2023-08-21 09:01 | Inpatient (IN) | payer BC ==
[2023-08-21] MEDS ORDERED: ALBUTEROL NEBULIZED 2.5 MG/3 ML INHALATION STA (09:25)
[2023-08-21] MEDS ORDERED: IPRATROPIUM-ALBUTEROL 3 ML NEB INHALATION STA (09:25)
[2023-08-21] MEDS ORDERED: SODIUM CHLORIDE 0.9% 500 ML 500 ML IV ONE (09:26)
--- NOTE | 2023-08-21 09:28 | ED ---
General Adult HPI - General Chief complaint: Shortness of Breath Stated complaint: JOSE MANUEL Time Seen by Provider: 08/21/23 09:17 Source: patient, RN notes reviewed, old records reviewed Mode of arrival: ambulatory Limitations: no limitations - History of Present Illness Initial comments: 62-year-old female with a one-week history of cough, upper respirations symptoms and dyspnea. Patient has history of tracheomalacia, history of asthma and COPD history of heart failure. She states she's had poor appetite over this time and has not been eating and drinking well. She denies vomiting. Denies measured fever. She reports a central chest tightness associated with her cough. - Related Data Home Medications Medication Instructions Recorded Confirmed Albuterol Sulfate [Proair Hfa] 1 - 2 puff INHALATION RT-Q4H PRN 04/11/14 04/28/23 Ascorbic Acid [Vitamin C] 1,000 mg PO DAILY 04/11/14 04/28/23 EPINEPHrine (Auto Inject) [Epipen] 0.3 mg IM ONCE PRN 04/11/14 04/28/23 Zinc 50 - 150 mg PO DAILY 04/11/14 04/28/23 Furosemide [Lasix] 40 mg PO BID@0700,1500 04/22/15 04/28/23 Potassium Chloride [Klor-Con 20] 20 meq PO HS 04/22/15 04/28/23 Montelukast [Singulair] 10 mg PO HS 12/21/15 04/28/23 Levothyroxine Sodium [Synthroid] 50 mcg PO QAM 03/03/16 04/28/23 Metoprolol Tartrate [Lopressor] 25 mg PO BID 01/09/17 04/28/23 L.acidoph,Paracasei, B.lactis 1 cap PO DAILY 09/10/17 04/28/23 [Probiotic] Dicyclomine [Bentyl] 20 mg PO TID PRN 12/15/18 04/28/23 Ipratropium-Albuterol Nebulize 3 ml INHALATION RT-QID PRN 12/15/18 04/28/23 [Duoneb 0.5 mg-3 mg/3 ml Soln] ALPRAZolam [Xanax] 0.5 mg PO TID PRN 01/15/21 04/28/23 Calcium Carbonate [Calcium] 600 mg PO BID 01/15/21 04/28/23 Famotidine [Pepcid] 40 mg PO HS 01/15/21 04/28/23 Fluticasone/Vilanterol [Breo 1 puff INHALATION QAM 01/15/21 04/28/23 Ellipta 200-25 Mcg Inhaler] Nystatin 100,000 Unit/gm Powd 1 applic TOPICAL DIRECTED PRN 12/03/21 04/28/23 [Mycostatin Powder] SILVER sulfADIAZINE Cream 1 applic TOPICAL DIRECTED PRN 12/03/21 04/28/23 [Silvadene 1% Cream] Tiotropium 2.5 Mcg/Puff [Spiriva 2 puff IN QAM 12/03/21 04/28/23 Respimat 2.5 Mcg] Cranberry Fruit Extract [Cranberry] 500 - 1,000 mg PO DAILY 04/26/23 04/28/23 Levocetirizine Dihydrochloride 5 mg PO HS 04/26/23 04/28/23 [Xyzal] Multivit with Calcium,Iron,Min 1 each PO DAILY 04/26/23 04/28/23 [Women's Multivitamin] Nystatin [Nystatin Oral Susp] 1 dose PO DAILY PRN 04/26/23 04/28/23 Triamcinolone Acetonide [Nasacort] 1 spray EA NOSTRIL BID 04/26/23 04/28/23 Vit C/E/Zn/Coppr/Lutein/Zeaxan 1 tab PO BID 04/26/23 04/28/23 [Preservision Areds 2 Chew Tab] guaiFENesin [Mucinex] 1,200 mg PO BID 04/26/23 04/28/23 Allergies Allergy/AdvReac Type Severity Reaction Status Date / Time Aminoglycosides Allergy Unknown Verified 08/21/23 09:10 honey Allergy Anaphylaxis Verified 08/21/23 09:10 moxifloxacin HCl Allergy Unknown Verified 08/21/23 09:10 [From Avelox] peanut Allergy Anaphylaxis Verified 08/21/23 09:10 azithromycin [From Zithromax] AdvReac Nausea & Verified 08/21/23 09:10 Vomiting & Diarrhea clindamycin AdvReac Dyspnea Verified 08/21/23 09:10 levofloxacin [From Levaquin] AdvReac Dyspnea, Verified 08/21/23 09:10 THROAT SWOLLEN neomycin [Neomycin] AdvReac Dyspnea Verified 08/21/23 09:10 omalizumab [From Xolair] AdvReac Dyspnea Verified 08/21/23 09:10 trimethoprim [From Bactrim] AdvReac Diarrhea/co Verified 08/21/23 09:10 litis Review of Systems ROS Statement: Those systems with pertinent positive or pertinent negative responses have been documented in the HPI. ROS Other: All systems not noted in ROS Statement are negative. Past Medical History Past Medical History: Asthma, Heart Failure, COPD, CVA/TIA, Deep Vein Thrombosis (DVT), Eye Disorder, GERD/Reflux, Hypertension, Osteoarthritis (OA), Respiratory Disorder, Sleep Apnea/CPAP/BIPAP, Syncope, Thyroid Disorder Additional Past Medical History / Comment(s): Paradoxical vocal cord function/episodic dysphonia, dysphagia, tracheobronchial malasia, severe persistent bronchial asthma. ARAMIS with Cpap. TIA. scoliosis/spondylosis. neuropathy bilateral lower legs/feet. anemia. lower GI bleed. Cdiff colitis, hiatal hernia, tachycardia, hypothyroid, BILAT MACULAR DEGENERATION History of Any Multi-Drug Resistant Organisms: C-DIFF Date of last positivie culture/infection: 04/22/15 MDRO Source:: stool Past Surgical History: Breast Surgery, Cholecystectomy, Heart Catheterization, Joint Replacement, Orthopedic Surgery, Tubal Ligation, Uterine Ablation Additional Past Surgical History / Comment(s): Multiple bronchoscopies, colonoscopy with benign polypectomy, bowel resection d/t perforation during colonoscopy, cyst removed near esophagus, vocal cords scrapped, L breast benign bx, D&C, bilateral knee arthroscopies with R side done twice, R arm tendon release. LT TKA, BILAT CATARACTS REMOVED WITH LENS IMPLANTS Past Anesthesia/Blood Transfusion Reactions: Postoperative Nausea & Vomiting (PONV) Additional Past Anesthesia/Blood Transfusion Reaction / Comment(s): Pt has never recieved blood. Past Psychological History: Anxiety Smoking Status: Never smoker Past Alcohol Use History: None Reported Past Drug Use History: None Reported - Past Family History Father Family Medical History: Cancer, Congestive Heart Failure (CHF), CVA/TIA, Myocardial Infarction (DC), Prostate Disorder Additional Family Medical History / Comment(s): at age 84- choked on a hot dog Mother Family Medical History: Cancer, Osteoarthritis (OA) Additional Family Medical History / Comment(s): Breast cancer General Exam Limitations: no limitations General appearance: alert, anxious Head exam: Present: atraumatic, normocephalic Eye exam: Present: normal appearance, PERRL ENT exam: Absent: normal oropharynx (Pharyngeal erythema) Respiratory exam: Present: respiratory distress, rhonchi, decreased breath sounds Cardiovascular Exam: Present: normal rhythm, tachycardia GI/Abdominal exam: Present: soft. Absent: distended, tenderness Extremities exam: Present: normal inspection, normal capillary refill. Absent: pedal edema Neurological exam: Present: alert, oriented X3 Psychiatric exam: Present: normal affect, normal mood Skin exam: Present: warm, dry, intact Course Vital Signs 08/21/23 08/21/23 08/21/23 09:05 09:09 09:39 Temperature 97.3 F L Pulse Rate 117 H 110 H Respiratory 26 H 22 Rate Blood Pressure 140/68 O2 Sat by Pulse 98 Oximetry 08/21/23 08/21/23 09:45 09:54 Temperature 100.7 F H Pulse Rate 112 H Respiratory Rate Blood Pressure O2 Sat by Pulse Oximetry Medical Decision Making - Medical Decision Making Was pt. sent in by a medical professional or institution (, PA, DIE TURNER, urgent care, hospital, or [facility]...) When possible be specific @ -No Did you speak to anyone other than the patient for history (EMS, parent, family, police, friend...)? What history was obtained from this source @ -No Did you review nursing and triage notes (agree or disagree)? Why? @ -I reviewed and agree with nursing and triage notes Were old charts reviewed (outside hosp., previous admission, EMS record, old EKG, old radiological studies, urgent care reports/EKG's, [facility] records)? Report findings @ -No old charts were reviewed Differential Diagnosis (chest pain, altered mental status, abdominal pain women, abdominal pain men, vaginal bleeding, weakness, fever, dyspnea, syncope, headache, dizziness, GI bleed, back pain, seizure, CVA, palpatations, mental health, musculoskeletal)? @ Differential Dyspnea: Coronary syndrome, arrhythmia, tamponade, asthma, COPD, pulmonary embolism, pneumonia, pneumothorax, pulmonary effusion, anaphylaxis, diabetic ketoacidosis, flailed chest, pulmonary contusion, diaphragmatic rupture, anemia, neuromuscular, this is not meant to be an all-inclusive list. EKG interpreted by me (3pts min.). @ -[Sinus tachycardia rate of 111, PA interval 128, QRS duration 97, QTC 380, no ST segment elevation. X-rays interpreted by me (1pt min.). @ -[Chest x-ray negative for focal pneumonia CT interpreted by me (1pt min.). @ -None done U/S interpreted by me (1pt. min.). @ -None done What testing was considered but not performed or refused? (CT, X-rays, U/S, labs)? Why? @ -None What meds were considered but not given or refused? Why? @ -None Did you discuss the management of the patient with other professionals (professionals i.e. , PA, DIE TURNER, lab, RT, psych nurse, social work associate, transporter driver, teacher, tax compliance officer, case repairer)? Give summary @ -Case discussed with Dr. Marie Was smoking cessation discussed for >3mins.? @ -No Was critical care preformed (if so, how long)? @ -No Were there social determinants of health that impacted care today? How? (Homelessness, low income, unemployed, alcoholism, drug addiction, transportation, low edu. Level, literacy, decrease access to med. care, longterm, rehab)? @ -No Was there de-escalation of care discussed even if they declined (Discuss DNR or withdrawal of care, Hospice)? DNR status @ -No What co-morbidities impacted this encounter? (DM, HTN, Smoking, COPD, CAD, Cancer, CVA, ARF, Chemo, Hep., AIDS, mental health diagnosis, sleep apnea, morbid obesity)? @ -COPD, tracheomalacia, obesity associated hypoventilation Was patient admitted / discharged? Hospital course, mention meds given and route, prescriptions, significant lab abnormalities, going to OR and other pertinent info. @ -Patient will be admitted for COPD exacerbation, left pectoral dyspnea. She has an elevated white blood cell count of 20. She started on antibiotics, blood cultures are pending, started on IV steroids, albuterol, Atrovent. She'll be admitted to internal medicine with pulmonary on consult. Undiagnosed new problem with uncertain prognosis? @ -No Drug Therapy requiring intensive monitoring for toxicity (Heparin, Nitro, Insulin, Cardizem)? @ -No Were any procedures done? @ -No Diagnosis/symptom? @ -[Dyspnea, COPD exacerbation Acute, or Chronic, or Acute on Chronic? @ -Acute on chronic Uncomplicated (without systemic symptoms) or Complicated (systemic symptoms)? @ -default Side effects of treatment? @ -No Exacerbation, Progression, or Severe Exacerbation? @ -No Poses a threat to life or bodily function? How? (Chest pain, USA, DC, pneumonia, PE, COPD, DKA, ARF, appy, cholecystitis, CVA, Diverticulitis, Homicidal, Suicidal, threat to staff... and all critical care pts) @ -Yes, dyspnea, hypoxia - Lab Data Result diagrams: 08/21/23 09:31 08/21/23 09:31 Lab Results 08/21/23 08/21/23 08/21/23 Range/Units 09:31 09:31 09:31 WBC 20.9 H (3.8-10.6) k/uL RBC 4.14 (3.80-5.40) m/uL Hgb 13.0 (11.4-16.0) gm/dL Hct 37.4 (34.0-46.0) % MCV 90.4 (80.0-100.0) fL MCH 31.3 (25.0-35.0) pg MCHC 34.6 (31.0-37.0) g/dL RDW 13.8 (11.5-15.5) % Plt Count 153 (150-450) k/uL MPV 9.1 Neutrophils % 85 % Lymphocytes % 10 % Monocytes % 3 % Eosinophils % 1 % Basophils % 0 % Neutrophils # 17.8 H (1.3-7.7) k/uL Lymphocytes # 2.0 (1.0-4.8) k/uL Monocytes # 0.7 (0-1.0) k/uL Eosinophils # 0.1 (0-0.7) k/uL Basophils # 0.0 (0-0.2) k/uL PT 11.3 (10.0-12.5) sec INR 1.0 (<1.2) APTT 26.9 (22.0-30.0) sec D-Dimer 0.56 (<0.60) mg/L FEU Sodium 139 (137-145) mmol/L Potassium 3.8 (3.5-5.1) mmol/L Chloride 107 (98-107) mmol/L Carbon Dioxide 22 (22-30) mmol/L Anion Gap 10 mmol/L BUN 13 (7-17) mg/dL Creatinine 0.77 (0.52-1.04) mg/dL Est GFR (CKD-EPI)AfAm >90 (>60 ml/min/1.73 sqM) Est GFR (CKD-EPI)NonAf 84 (>60 ml/min/1.73 sqM) Glucose 109 H (74-99) mg/dL Plasma Lactic Acid Seth (0.7-2.0) mmol/L Calcium 8.9 (8.4-10.2) mg/dL Magnesium 2.1 (1.6-2.3) mg/dL Total Bilirubin 1.5 H (0.2-1.3) mg/dL AST 22 (14-36) U/L ALT 16 (4-34) U/L Alkaline Phosphatase 102 (38-126) U/L Troponin I (0.000-0.034) ng/mL NT-Pro-B Natriuret Pep 959 pg/mL Total Protein 6.9 (6.3-8.2) g/dL Albumin 4.0 (3.5-5.0) g/dL Influenza Type A (PCR) (Not Detectd) Influenza Type B (PCR) (Not Detectd) RSV (PCR) (Not Detectd) SARS-CoV-2 (PCR) (Not Detectd) 08/21/23 08/21/23 08/21/23 Range/Units 09:31 09:31 09:31 WBC (3.8-10.6) k/uL RBC (3.80-5.40) m/uL Hgb (11.4-16.0) gm/dL Hct (34.0-46.0) % MCV (80.0-100.0) fL MCH (25.0-35.0) pg MCHC (31.0-37.0) g/dL RDW (11.5-15.5) % Plt Count (150-450) k/uL MPV Neutrophils % % Lymphocytes % % Monocytes % % Eosinophils % % Basophils % % Neutrophils # (1.3-7.7) k/uL Lymphocytes # (1.0-4.8) k/uL Monocytes # (0-1.0) k/uL Eosinophils # (0-0.7) k/uL Basophils # (0-0.2) k/uL PT (10.0-12.5) sec INR (<1.2) APTT (22.0-30.0) sec D-Dimer (<0.60) mg/L FEU Sodium (137-145) mmol/L Potassium (3.5-5.1) mmol/L Chloride (98-107) mmol/L Carbon Dioxide (22-30) mmol/L Anion Gap mmol/L BUN (7-17) mg/dL Creatinine (0.52-1.04) mg/dL Est GFR (CKD-EPI)AfAm (>60 ml/min/1.73 sqM) Est GFR (CKD-EPI)NonAf (>60 ml/min/1.73 sqM) Glucose (74-99) mg/dL Plasma Lactic Acid Seth 0.8 (0.7-2.0) mmol/L Calcium (8.4-10.2) mg/dL Magnesium (1.6-2.3) mg/dL Total Bilirubin (0.2-1.3) mg/dL AST (14-36) U/L ALT (4-34) U/L Alkaline Phosphatase (38-126) U/L Troponin I <0.012 (0.000-0.034) ng/mL NT-Pro-B Natriuret Pep pg/mL Total Protein (6.3-8.2) g/dL Albumin (3.5-5.0) g/dL Influenza Type A (PCR) Not Detected (Not Detectd) Influenza Type B (PCR) Not Detected (Not Detectd) RSV (PCR) Not Detected (Not Detectd) SARS-CoV-2 (PCR) Not Detected (Not Detectd) Disposition Clinical Impression: Acute exacerbation of chronic obstructive airways disease Disposition: ADMITTED IP TO THIS HOSP Condition: Stable Is patient prescribed a controlled substance at d/c from ED?: No Referrals: Lucio Potts MD [Primary Care Provider] - 1-2 days Time of Disposition: 11:08
--- NOTE | 2023-08-21 09:43 | XR ---
EXAMINATION TYPE: XR chest 2V DATE OF EXAM: 08/21/2023 COMPARISON: 08/03/2022 INDICATION: Difficulty breathing TECHNIQUE: Frontal and lateral views of the chest are obtained. FINDINGS: The heart size is normal. The pulmonary vasculature is normal. The lungs are clear. IMPRESSION: 1. No acute pulmonary process.
[2023-08-21] MEDS ORDERED: ACETAMINOPHEN TAB 500 MG TAB PO STA (09:46)
[2023-08-21 09:56] LABS: Basophils % (A) 0 %; Eosinophils # (A) 0.1 k/uL (0-0.7); Eosinophils % (A) 1 %; HCT 37.4 % (34.0-46.0); Lymphocytes % (A) 10 %; MCH 31.3 pg (25.0-35.0); MCHC 34.6 g/dL (31.0-37.0); MCV 90.4 fL (80.0-100.0); Mean Platelet Volume 9.1; Monocytes # (A) 0.7 k/uL (0-1.0); Monocytes % (A) 3 %; Neutrophils # (A) 17.8 k/uL (1.3-7.7); Neutrophils % (A) 85 %; Platelet Count 153 k/uL (150-450); RBC 4.14 m/uL (3.80-5.40); RDW 13.8 % (11.5-15.5); WBC 20.9 k/uL (3.8-10.6)
[2023-08-21] MEDS ORDERED: ONDANSETRON 4 MG/2 ML VIAL IVP STA (09:56)
[2023-08-21 10:07] LABS: ALT 16 U/L (4-34); AST 22 U/L (14-36); African American GFR (CKD) >90 (>60 ml/min/1.73 sqM); Alkaline Phosphatase 102 U/L (38-126); Anion Gap 10 mmol/L; Blood Urea Nitrogen 13 mg/dL (7-17); Calcium 8.9 mg/dL (8.4-10.2); Carbon Dioxide 22 mmol/L (22-30); Chloride 107 mmol/L (98-107); Glucose 109 mg/dL (74-99); Magnesium 2.1 mg/dL (1.6-2.3); Non-African American GFR(CKD) 84 (>60 ml/min/1.73 sqM); Potassium 3.8 mmol/L (3.5-5.1); Sodium 139 mmol/L (137-145); Total Bilirubin 1.5 mg/dL (0.2-1.3); Total Protein 6.9 g/dL (6.3-8.2)
[2023-08-21 10:10] LABS: Partial Thromboplastin Time 26.9 sec (22.0-30.0); Prothrombin Time 11.3 sec (10.0-12.5)
[2023-08-21 10:15] LABS: NT-Pro-B-Type Natriuretic Pept 959 pg/mL
[2023-08-21] MEDS ORDERED: methylPREDNISolone SOD SUCCI 125 MG/2 ML VIAL IV STA (10:50)
[2023-08-21] MEDS ORDERED: FLUCONAZOLE 100 MG TAB PO ONE (11:04)
[2023-08-21] MEDS ORDERED: IPRATROPIUM-ALBUTEROL 3 ML NEB INHALATION PRN (11:05)
[2023-08-21] MEDS ORDERED: NALOXONE 0.4 MG/ML 1 ML VIAL IVP PRN (11:05)
[2023-08-21] MEDS: IPRATROPIUM-ALBUTEROL 3 ML NEB INHALATION SCH ×3 (12:42→19:05)
[2023-08-21] MEDS ORDERED: ONDANSETRON 4 MG/2 ML VIAL IVP PRN (14:09)
[2023-08-21] MEDS ORDERED: ACETAMINOPHEN TAB 325 MG TAB PO PRN (14:09)
[2023-08-21] MEDS ORDERED: BENZONATATE 100 MG CAP PO PRN (14:09)
[2023-08-21] MEDS ORDERED: HYDROcodone/APAP 5-325MG 1 EACH TAB PO PRN (14:09)
[2023-08-21] MEDS ORDERED: ALPRAZolam 0.5 MG TAB PO PRN (14:11)
--- NOTE | 2023-08-21 14:55 | P.CNPUL ---
History of Present Illness Consult date: 08/21/23 Requesting physician: Ree Marie Reason for consult: dyspnea, cough Chief complaint: Shortness of breath, cough, congestion History of present illness: This is a pleasant 62-year-old female patient with a known history of chronic bronchial asthma and severe tracheobronchomalacia, hypertension, obstructive sleep apnea, hypothyroidism, CVA/TIA, anxiety. Lifelong nonsmoker. She presented here to the emergency room this morning with a 3 day history of increasing shortness of breath, cough congestion and fever. She has a greenish yellow productive cough. Chest x-ray reveals no acute pulmonary process. White count 20.9. Hemoglobin 13.0. D-dimer 0.56. Sodium 139. Potassium 3.8. Bicarb 22. BUN 13. Creatinine 0.77. Glucose 109. Troponin negative times one. ProBNP 959. She is seen in consultation in the emergency department. She is currently sitting up in a stretcher. Awake and alert in no acute distress. She is maintaining good O2 saturations in the 90s on room air. She did present with a temperature of 100.7. She's been initiated on DuoNeb inhalations, Symbicort, Singulair, Mucinex, Tessalon Perles, Solu-Medrol. Empiric antibiotics in the form of Augmentin. Influenza screen negative. RSV screen negative. COVID-19 screen negative. Review of Systems REVIEW OF SYSTEMS: CONSTITUTIONAL: Denies any recent significant weight loss or weight gain. EYES: Denies change in vision. EARS, NOSE, MOUTH, THROAT: Denies headaches, denies sore throat. CARDIOVASCULAR: Denies chest pain, palpitations or syncopal episodes. RESPIRATORY: A sitter for shortness of breath, cough, congestion no hemoptysis. GASTROINTESTINAL: Denies change in appetite, denies abdominal pain GENITOURINARY: Denies hematuria, denies infections. MUSKULOSKELETAL: Denies pain, denies swelling. INTEGUMENTARY: Denies rash, denies eczema. NEUROLOGICAL: Denies recent memory loss, no recent seizure activity. PSYCHIATRIC: Denies anxiety, denies depression. HEMATOLOGIC/LYMPHATIC: Denies anemia, denies enlarged lymph nodes. Past Medical History Past Medical History: Asthma, Heart Failure, COPD, CVA/TIA, Deep Vein Thrombosis (DVT), Eye Disorder, GERD/Reflux, Hypertension, Osteoarthritis (OA), Respiratory Disorder, Sleep Apnea/CPAP/BIPAP, Syncope, Thyroid Disorder Additional Past Medical History / Comment(s): Paradoxical vocal cord function/episodic dysphonia, dysphagia, tracheobronchial malasia, severe persistent bronchial asthma. ARAMIS with Cpap. TIA. scoliosis/spondylosis. neuropathy bilateral lower legs/feet. anemia. lower GI bleed. Cdiff colitis, hiatal hernia, tachycardia, hypothyroid, BILAT MACULAR DEGENERATION History of Any Multi-Drug Resistant Organisms: C-DIFF Date of last positivie culture/infection: 04/22/15 MDRO Source:: stool Past Surgical History: Breast Surgery, Cholecystectomy, Heart Catheterization, Joint Replacement, Orthopedic Surgery, Tubal Ligation, Uterine Ablation Additional Past Surgical History / Comment(s): Multiple bronchoscopies, colonoscopy with benign polypectomy, bowel resection d/t perforation during colonoscopy, cyst removed near esophagus, vocal cords scrapped, L breast benign bx, D&C, bilateral knee arthroscopies with R side done twice, R arm tendon release. LT TKA, BILAT CATARACTS REMOVED WITH LENS IMPLANTS Past Anesthesia/Blood Transfusion Reactions: Postoperative Nausea & Vomiting (PONV) Additional Past Anesthesia/Blood Transfusion Reaction / Comment(s): Pt has never recieved blood. Past Psychological History: Anxiety Smoking Status: Never smoker Past Alcohol Use History: None Reported Past Drug Use History: None Reported - Past Family History Father Family Medical History: Cancer, Congestive Heart Failure (CHF), CVA/TIA, Myocardial Infarction (SC), Prostate Disorder Additional Family Medical History / Comment(s): at age 84- choked on a hot dog Mother Family Medical History: Cancer, Osteoarthritis (OA) Additional Family Medical History / Comment(s): Breast cancer Medications and Allergies Home Medications Medication Instructions Recorded Confirmed Type Albuterol Sulfate [Proair Hfa] 1 - 2 puff INHALATION RT-Q4H PRN 04/11/14 08/21/23 History Ascorbic Acid [Vitamin C] 1,000 mg PO DAILY 04/11/14 08/21/23 History EPINEPHrine (Auto Inject) [Epipen] 0.3 mg IM ONCE PRN 04/11/14 08/21/23 History Zinc 100 mg PO DAILY 04/11/14 08/21/23 History Furosemide [Lasix] 40 mg PO BID@0700,1500 04/22/15 08/21/23 History Potassium Chloride [Klor-Con 20] 20 meq PO DAILY 04/22/15 08/21/23 History Montelukast [Singulair] 10 mg PO HS 12/21/15 08/21/23 History Levothyroxine Sodium [Synthroid] 50 mcg PO DAILY 03/03/16 08/21/23 History L.acidoph,Paracasei, B.lactis 1 cap PO DAILY 09/10/17 08/21/23 History [Probiotic] Ipratropium-Albuterol Nebulize 3 ml INHALATION RT-QID 12/15/18 08/21/23 History [Duoneb 0.5 mg-3 mg/3 ml Soln] ALPRAZolam [Xanax] 0.5 mg PO TID PRN 01/15/21 08/21/23 History Calcium Carbonate [Calcium] 600 mg PO BID 01/15/21 08/21/23 History Famotidine [Pepcid] 40 mg PO HS 01/15/21 08/21/23 History Fluticasone/Vilanterol [Breo 1 puff INHALATION RT-DAILY 01/15/21 08/21/23 History Ellipta 200-25 Mcg Inhaler] SILVER sulfADIAZINE Cream 1 applic TOPICAL BID PRN 12/03/21 08/21/23 History [Silvadene 1% Cream] Tiotropium 2.5 Mcg/Puff [Spiriva 2 puff INHALATION RT-DAILY 12/03/21 08/21/23 History Respimat 2.5 Mcg] Cranberry Fruit Extract [Cranberry] 500 mg PO DAILY 04/26/23 08/21/23 History Levocetirizine Dihydrochloride 5 mg PO HS 04/26/23 08/21/23 History [Xyzal] Multivit with Calcium,Iron,Min 1 tab PO DAILY 04/26/23 08/21/23 History [Women's Multivitamin] Nystatin [Nystatin Oral Susp] 5 ml PO QID PRN 04/26/23 08/21/23 History Triamcinolone Acetonide [Nasacort] 1 - 2 spray EA NOSTRIL DAILY 04/26/23 08/21/23 History Vit C/E/Zn/Coppr/Lutein/Zeaxan 1 tab PO BID 04/26/23 08/21/23 History [Preservision Areds 2 Chew Tab] guaiFENesin [Mucinex] 1,200 mg PO BID 04/26/23 08/21/23 History Ipratropium-Albuterol Nebulize 3 ml INHALATION RT-Q4H PRN 08/21/23 08/21/23 His tory [Duoneb 0.5 mg-3 mg/3 ml Soln] Metoprolol Tartrate [Lopressor] 25 mg PO BID 08/21/23 08/21/23 History Allergies Allergy/AdvReac Type Severity Reaction Status Date / Time Aminoglycosides Allergy Unknown Verified 08/21/23 11:38 honey Allergy Anaphylaxis Verified 08/21/23 11:38 moxifloxacin HCl Allergy Unknown Verified 08/21/23 11:38 [From Avelox] peanut Allergy Anaphylaxis Verified 08/21/23 11:38 azithromycin [From Zithromax] AdvReac Nausea & Verified 08/21/23 11:38 Vomiting & Diarrhea clindamycin AdvReac Dyspnea Verified 08/21/23 11:38 levofloxacin [From Levaquin] AdvReac Dyspnea, Verified 08/21/23 11:38 THROAT SWOLLEN neomycin [Neomycin] AdvReac Dyspnea Verified 08/21/23 11:38 omalizumab [From Xolair] AdvReac Dyspnea Verified 08/21/23 11:38 trimethoprim [From Bactrim] AdvReac Diarrhea/co Verified 08/21/23 11:38 litis Physical Exam Vitals: Vital Signs Temp Pulse Resp BP Pulse Ox 08/21/23 12:52 102 H 08/21/23 12:42 99 08/21/23 11:10 99.5 F 08/21/23 11:00 106 H 20 150/74 94 L 08/21/23 10:30 110 H 20 149/81 94 L 08/21/23 10:00 112 H 20 135/96 100 08/21/23 09:54 112 H 08/21/23 09:45 100.7 F H 08/21/23 09:39 110 H 08/21/23 09:09 22 08/21/23 09:05 97.3 F L 117 H 26 H 140/68 98 Intake and Output 08/20/23 08/21/23 08/21/23 22:59 06:59 14:59 Other: Weight 115.666 kg GENERAL EXAM: Alert, pleasant 62-year-old female, on room air, fairly comfortable in no apparent distress. HEAD: Normocephalic. EYES: Normal reaction of pupils, equal size. NOSE: Clear with pink turbinates. THROAT: No erythema or exudates. NECK: No masses, no JVD. CHEST: No chest wall deformity. LUNGS: Equal air entry with few scattered rhonchi. CVS: S1 and S2 normal with no audible murmur, regular rhythm. ABDOMEN: No hepatosplenomegaly, normal bowel sounds, no guarding or rigidity. SPINE: No scoliosis or deformity SKIN: No rashes CENTRAL NERVOUS SYSTEM: No focal deficits, tone is normal in all 4 extremities. EXTREMITIES: There is no peripheral edema. No clubbing, no cyanosis. Peripheral pulses are intact. Results - Laboratory Findings CBC and BMP: 08/21/23 09:31 08/21/23 09:31 PT/INR, D-dimer PT 11.3 sec (10.0-12.5) 08/21/23 09:31 INR 1.0 (<1.2) 08/21/23 09:31 D-Dimer 0.56 mg/L FEU (<0.60) 08/21/23 09:31 Abnormal lab findings: Abnormal Labs 08/21/23 08/21/23 09:31 09:31 WBC 20.9 H Neutrophils # 17.8 H Glucose 109 H Total Bilirubin 1.5 H - Diagnostic Findings Chest x-ray: image reviewed (No acute pulmonary process) Assessment and Plan Assessment: Acute exacerbation of severe intermittent chronic bronchial asthma. Chest x-ray shows no acute process. Influenza screen negative. RSV screen negative. COVID-19 screen negative History of tracheobronchomalacia Hypertension Hypothyroidism Obstructive sleep apnea Episodic dysphonia Anxiety History of DVT History of CVA/TIA Plan: The patient was seen and evaluated Chest x-ray, labs and medications reviewed Continued bronchodilators, steroids Continue Mucinex, Tessalon Perles Continue empiric antibiotics Check a pro-calcitonin Stable and on room air We'll continue to follow and make further recommendations based on her clinical status I have personally seen and examined the patient, performed the documentation and the assessment and plan as written. Number of minutes spent on the visit: 20 .
[2023-08-21] MEDS ORDERED: FUROSEMIDE 40 MG TAB PO SCH (15:00)
[2023-08-21] MEDS ORDERED: SODIUM CHLORIDE 0.9% 1,000 ML IV ONE (15:01)
[2023-08-21] MEDS: methylPREDNISolone SOD SUCCI 125 MG/2 ML VIAL IV SCH (15:03)
[2023-08-21] MEDS: SODIUM CHLORIDE 0.9% 1,000 ML IV SCH ×2 (15:05→20:57)
--- NOTE | 2023-08-21 15:05 | P.HPIM ---
History of Present Illness H&P Date: 08/21/23 Patient is a 62-year-old female with a history of tracheobronchial malacia, vocal cord paralysis, bronchial asthma, congestive heart failure, and multiple other comorbid conditions who presented to the ER with multiple complaints including fever. On arrival to the emergency department she underwent an extensive evaluation. Initial vital signs showed tachycardia with a pulse of 117 and a respiratory rate of 26. She then spiked a fever of 100.7. Initial laboratory analysis included CBC, coags, d-dimer, CMP, troponin, BNP, and magnesium was remarkable for white blood cell count of 20.9. Influenza A/B/RSV/COVID-19 testing was negative. Chest x-ray demonstrated no acute pr ocess. In the ER she was given bronchodilators, Solu-Medrol, and Rocephin. Arrangements were made for admission. Pulmonary was consulted. Patient seen and examined at bedside. She reports that on Monday night she started having fevers of 100.1-100.2. She also wasn't sure if this was thrush so she started on nystatin swish and swallow. She reports she is feeling fatigued, having decreased appetite, but she is having a sore throat and some difficulty in breathing. She typically falls Dr. Artinian. She has not ate anything since Monday, but is now eating in the ER she feels better. She has AFOs and uses a cane at home. Vital signs reviewed General: nontoxic, no distress, appears at stated age Derm: warm, dry Eyes: EOMI, no lid lag, anicteric sclera, pupils equal round reactive to light ENT: Nose and ears atraumatic, no thrush, no pharyngeal erythema Cardiovascular: S1S2 reg, no murmur, positive posterior tibial pulse bilateral, no edema, capillary refill less than 2 seconds Lungs: clear to auscultation bilateral, no rhonchi, no rales, no wheeze, no accessory muscle use Abdominal: soft, nontender to palpation, no guarding, no appreciable organomegaly, normal bowel sounds Ext: no gross muscle atrophy, muscle strength 5 out of 5 in all 4 extremities, no contractures Neuro: CN II-XII grossly intact, no focal neurodeficits Psych: Alert, oriented, appropriate affect Assessment/Plan: Acute brochitis with sepsis Acute exacerbation of bronchial asthma Hx of tranchea bronchial malasia Hx of vocal cord dysfunction ARAMIS - DuoNeb every 6 hours scheduled and every 2 hours as needed, Solu-Medrol 60 mg IV every 8 hours - Doxycycline 100 mg BID, ROcephin 2 grams IVPB - Sputum culture - Legionella urine antigen - Nystatin 500,000 QID - 0.9 normal saline 1 additional liter bolus from underwent under 30 mL/h to complete sepsis management Tessalon 100 mg by mouth 3 times daily as needed for cough Compensated HFpEF - metoprolol 50 gm PO BID, Singulair 10 mg PO HS -Hold Lasix for today while treating her sepsis Hypothyroidism - Levothyroxine 50 mg daily Class III obesity with BMI 40 -Outpatient structured weight loss Chronic: GERD HTN Syncope Neuropathy Anemia Lower gi bleed C diff colitis Hiatal hernia Tachycardia Bilateral macular degeneration Imaging: Chest x-ray is reviewed by myself shows poor inspiratory effort but no acute process. Data Review: As per HPI The patient is admitted with an anticipated greater than 2 midnight stay for evaluation of Bronchitis with sepsis DVT prophylaxis: SCDs Discussed with: ED physician Anticipated discharge date: Pending Clinical Course Anticipated discharge place: Pending Clinical Course This dictation was prepared using [employer] voice recognition software. Though every attempt is made to correct errors during dictation some may still exist. Past Medical History Past Medical History: Asthma, Heart Failure, COPD, CVA/TIA, Deep Vein Thrombosis (DVT), Eye Disorder, GERD/Reflux, Hypertension, Osteoarthritis (OA), Respiratory Disorder, Sleep Apnea/CPAP/BIPAP, Syncope, Thyroid Disorder Additional Past Medical History / Comment(s): Paradoxical vocal cord function/episodic dysphonia, dysphagia, tracheobronchial malasia, severe persistent bronchial asthma. ARAMIS with Cpap. TIA. scoliosis/spondylosis. neuropathy bilateral lower legs/feet. anemia. lower GI bleed. Cdiff colitis, hiatal hernia, tachycardia, hypothyroid, BILAT MACULAR DEGENERATION History of Any Multi-Drug Resistant Organisms: C-DIFF Date of last positivie culture/infection: 04/22/15 MDRO Source:: stool Past Surgical History: Breast Surgery, Cholecystectomy, Heart Catheterization, Joint Replacement, Orthopedic Surgery, Tubal Ligation, Uterine Ablation Additional Past Surgical History / Comment(s): Multiple bronchoscopies, colonoscopy with benign polypectomy, bowel resection d/t perforation during colonoscopy, cyst removed near esophagus, vocal cords scrapped, L breast benign bx, D&C, bilateral knee arthroscopies with R side done twice, R arm tendon release. LT TKA, BILAT CATARACTS REMOVED WITH LENS IMPLANTS Past Anesthesia/Blood Transfusion Reactions: Postoperative Nausea & Vomiting (PONV) Additional Past Anesthesia/Blood Transfusion Reaction / Comment(s): Pt has never recieved blood. Past Psychological History: Anxiety Smoking Status: Never smoker Past Alcohol Use History: None Reported Past Drug Use History: None Reported - Past Family History Father Family Medical History: Cancer, Congestive Heart Failure (CHF), CVA/TIA, Myocardial Infarction ([place]), Prostate Disorder Additional Family Medical History / Comment(s): at age 84- choked on a hot dog Mother Family Medical History: Cancer, Osteoarthritis (OA) Additional Family Medical History / Comment(s): Breast cancer Medications and Allergies Home Medications Medication Instructions Recorded Confirmed Type Albuterol Sulfate [Proair Hfa] 1 - 2 puff INHALATION RT-Q4H PRN 04/11/14 08/21/23 History Ascorbic Acid [Vitamin C] 1,000 mg PO DAILY 04/11/14 08/21/23 History EPINEPHrine (Auto Inject) [Epipen] 0.3 mg IM ONCE PRN 04/11/14 08/21/23 History Zinc 100 mg PO DAILY 04/11/14 08/21/23 History Furosemide [Lasix] 40 mg PO BID@0700,1500 04/22/15 08/21/23 History Potassium Chloride [Klor-Con 20] 20 meq PO DAILY 04/22/15 08/21/23 History Montelukast [Singulair] 10 mg PO HS 12/21/15 08/21/23 History Levothyroxine Sodium [Synthroid] 50 mcg PO DAILY 03/03/16 08/21/23 History L.acidoph,Paracasei, B.lactis 1 cap PO DAILY 09/10/17 08/21/23 History [Probiotic] Ipratropium-Albuterol Nebulize 3 ml INHALATION RT-QID 12/15/18 08/21/23 History [Duoneb 0.5 mg-3 mg/3 ml Soln] ALPRAZolam [Xanax] 0.5 mg PO TID PRN 01/15/21 08/21/23 History Calcium Carbonate [Calcium] 600 mg PO BID 01/15/21 08/21/23 History Famotidine [Pepcid] 40 mg PO HS 01/15/21 08/21/23 History Fluticasone/Vilanterol [Breo 1 puff INHALATION RT-DAILY 01/15/21 08/21/23 Histo ry Ellipta 200-25 Mcg Inhaler] SILVER sulfADIAZINE Cream 1 applic TOPICAL BID PRN 12/03/21 08/21/23 History [Silvadene 1% Cream] Tiotropium 2.5 Mcg/Puff [Spiriva 2 puff INHALATION RT-DAILY 12/03/21 08/21/23 History Respimat 2.5 Mcg] Cranberry Fruit Extract [Cranberry] 500 mg PO DAILY 04/26/23 08/21/23 History Levocetirizine Dihydrochloride 5 mg PO HS 04/26/23 08/21/23 History [Xyzal] Multivit with Calcium,Iron,Min 1 tab PO DAILY 04/26/23 08/21/23 History [Women's Multivitamin] Nystatin [Nystatin Oral Susp] 5 ml PO QID PRN 04/26/23 08/21/23 History Triamcinolone Acetonide [Nasacort] 1 - 2 spray EA NOSTRIL DAILY 04/26/23 08/21/23 History Vit C/E/Zn/Coppr/Lutein/Zeaxan 1 tab PO BID 04/26/23 08/21/23 History [Preservision Areds 2 Chew Tab] guaiFENesin [Mucinex] 1,200 mg PO BID 04/26/23 08/21/23 History Ipratropium-Albuterol Nebulize 3 ml INHALATION RT-Q4H PRN 08/21/23 08/21/23 History [Duoneb 0.5 mg-3 mg/3 ml Soln] Metoprolol Tartrate [Lopressor] 25 mg PO BID 08/21/23 08/21/23 History Allergies Allergy/AdvReac Type Severity Reaction Status Date / Time Aminoglycosides Allergy Unknown Verified 08/21/23 11:38 honey Allergy Anaphylaxis Verified 08/21/23 11:38 moxifloxacin HCl Allergy Unknown Verified 08/21/23 11:38 [From Avelox] peanut Allergy Anaphylaxis Verified 08/21/23 11:38 azithromycin [From Zithromax] AdvReac Nausea & Verified 08/21/23 11:38 Vomiting & Diarrhea clindamycin AdvReac Dyspnea Verified 08/21/23 11:38 levofloxacin [From Levaquin] AdvReac Dyspnea, Verified 08/21/23 11:38 THROAT SWOLLEN neomycin [Neomycin] AdvReac Dyspnea Verified 08/21/23 11:38 omalizumab [From Xolair] AdvReac Dyspnea Verified 08/21/23 11:38 trimethoprim [From Bactrim] AdvReac Diarrhea/co Verified 08/21/23 11:38 litis Physical Exam Osteopathic Statement: *. No significant issues noted on an osteopathic structural exam other than those noted in the History and Physical/Consult. Vitals: Vital Signs Temp Pulse Resp BP Pulse Ox 08/21/23 12:52 102 H 08/21/23 12:42 99 08/21/23 11:10 99.5 F 08/21/23 11:00 106 H 20 150/74 94 L 08/21/23 10:30 110 H 20 149/81 94 L 08/21/23 10:00 112 H 20 135/96 100 08/21/23 09:54 112 H 08/21/23 09:45 100.7 F H 08/21/23 09:39 110 H 08/21/23 09:09 22 08/21/23 09:05 97.3 F L 117 H 26 H 140/68 98 Intake and Output 08/21/23 08/21/23 08/21/23 06:59 14:59 22:59 Other: Weight 115.666 kg Results CBC & Chem 7: 08/21/23 09:31 08/21/23 09:31 Labs: Abnormal Lab Results - Last 24 Hours (Table) 08/21/23 08/21/23 Range/Units 09:31 09:31 WBC 20.9 H (3.8-10.6) k/uL Neutrophils # 17.8 H (1.3-7.7) k/uL Glucose 109 H (74-99) mg/dL Total Bilirubin 1.5 H (0.2-1.3) mg/dL
[2023-08-21 19:28] LABS: VBG PH 7.41 (7.31-7.41)
[2023-08-21] MEDS: METOPROLOL TARTRATE 25 MG TAB PO SCH (20:55)
[2023-08-21] MEDS: DOXYCYCLINE 100 MG CAP PO SCH (20:55)
[2023-08-21] MEDS: LORATADINE 10 MG TAB PO SCH (20:55)
[2023-08-21] MEDS: MONTELUKAST 10 MG TAB PO SCH (20:55)
[2023-08-21] MEDS: guaiFENesin 600 MG TABLET.ER PO SCH (20:56)
[2023-08-21] MEDS: MELATONIN 3 MG TABLET PO SCH (20:56)
[2023-08-21] MEDS ORDERED: FAMOTIDINE 20 MG TAB PO SCH (21:00)
[2023-08-21] MEDS ORDERED: AMOXIC-POT CLAV 875-125MG 1 EACH TAB PO SCH (21:00)
[2023-08-21] MEDS ORDERED: guaiFENesin 600 MG TABLET.ER PO SCH (21:00)
[2023-08-22] MEDS: methylPREDNISolone SOD SUCCI 125 MG/2 ML VIAL IV SCH ×4 (00:16→23:40)
[2023-08-22 04:28] LABS: HCT 36.7 % (34.0-46.0); HGB 12.2 gm/dL (11.4-16.0); MCH 30.8 pg (25.0-35.0); MCHC 33.3 g/dL (31.0-37.0); MCV 92.5 fL (80.0-100.0); Mean Platelet Volume 9.6; Platelet Count 159 k/uL (150-450); RBC 3.97 m/uL (3.80-5.40); RDW 13.4 % (11.5-15.5); WBC 13.8 k/uL (3.8-10.6)
[2023-08-22 04:35] LABS: African American GFR (CKD) >90 (>60 ml/min/1.73 sqM); Anion Gap 9 mmol/L; Blood Urea Nitrogen 15 mg/dL (7-17); Calcium 8.1 mg/dL (8.4-10.2); Carbon Dioxide 22 mmol/L (22-30); Chloride 110 mmol/L (98-107); Glucose 144 mg/dL (74-99); Magnesium 2.1 mg/dL (1.6-2.3); Non-African American GFR(CKD) >90 (>60 ml/min/1.73 sqM); Potassium 3.9 mmol/L (3.5-5.1); Sodium 141 mmol/L (137-145)
[2023-08-22] MEDS: SODIUM CHLORIDE 0.9% 1,000 ML IV SCH ×2 (06:15→10:28)
[2023-08-22] MEDS: LEVOTHYROXINE 50 MCG TAB PO SCH (06:15)
[2023-08-22] MEDS ORDERED: NON FORMULARY DRUG (Tiotropium 2.5 Mcg/Puff 10 PUFF Each) INHALATION SCH (08:00)
[2023-08-22] MEDS: SYMBICORT 160-4.5 MCG INHALER INHALATION SCH ×2 (08:55→21:24)
[2023-08-22] MEDS: IPRATROPIUM-ALBUTEROL 3 ML NEB INHALATION SCH ×4 (08:55→21:24)
[2023-08-22] MEDS: guaiFENesin 600 MG TABLET.ER PO SCH ×2 (09:47→20:24)
[2023-08-22] MEDS: METOPROLOL TARTRATE 25 MG TAB PO SCH ×2 (09:47→20:24)
[2023-08-22] MEDS: MULTIVITAMINS, THERA 1 EACH TAB PO SCH (09:47)
[2023-08-22] MEDS: POTASSIUM CHLORIDE ER 20 MEQ TAB.ER PO SCH (09:47)
[2023-08-22] MEDS: LACTOBACILLUS ACIDOPHILUS/PECT 1 EACH CAPSULE PO SCH (09:48)
[2023-08-22] MEDS: FLUTICASONE 50MCG/SPRAY NASAL 16GM EA NOSTRIL SCH (09:48)
[2023-08-22] MEDS: DOXYCYCLINE 100 MG CAP PO SCH ×2 (09:48→20:24)
[2023-08-22] MEDS: PANTOPRAZOLE 40 MG TABLET PO SCH (10:15)
[2023-08-22] MEDS ORDERED: KETOROLAC 15 MG/ML 1 ML VIAL IVP STA (10:28)
--- NOTE | 2023-08-22 12:42 | P.PN ---
Subjective Progress Note Date: 08/22/23 This is a pleasant 62-year-old female patient with a known history of chronic bronchial asthma and severe tracheobronchomalacia, hypertension, obstructive sleep apnea, hypothyroidism, CVA/TIA, anxiety. Lifelong nonsmoker. She presented here to the emergency room this morning with a 3 day history of incr easing shortness of breath, cough congestion and fever. She has a greenish yellow productive cough. Chest x-ray reveals no acute pulmonary process. White count 20.9. Hemoglobin 13.0. D-dimer 0.56. Sodium 139. Potassium 3.8. Bicarb 22. BUN 13. Creatinine 0.77. Glucose 109. Troponin negative times one. ProBNP 959. She is seen in consultation in the emergency department. She is currently sitting up in a stretcher. Awake and alert in no acute distress. She is maintaining good O2 saturations in the 90s on room air. She did present with a temperature of 100.7. She's been initiated on DuoNeb inhalations, Symbicort, Singulair, Mucinex, Tessalon Perles, Solu-Medrol. Empiric antibi otics in the form of Augmentin. Influenza screen negative. RSV screen negative. COVID-19 screen negative. The patient is seen today 08/22/2023 in follow-up on the regular medical floor. She is sitting up in bed. Awake and alert in no acute distress. Breathing a bit easier today compared to yesterday. She is maintaining good O2 saturations in the 90s on room air. Her pro-calcitonin was 0.13. White count 13.8. Hemoglobin 12.2. Sodium 141. Potassium 3.9. Bicarb 22. BUN 15. Creatinine 0.66. Glucose 144. She is on ceftriaxone and doxycycline. Chest x-ray showed no acute process. Remains on DuoNeb inhalations, Symbicort, Solu-Medrol. Remains on Mucinex and Tessalon Perles. Objective - Vital Signs Vital signs: Vital Signs Temp 98.2 F 08/22/23 06:55 Pulse 84 08/22/23 12:34 Resp 14 08/22/23 06:55 BP 124/78 08/22/23 06:55 Pulse Ox 96 08/22/23 08:58 FiO2 Intake & Output 08/21/23 08/22/23 08/22/23 18:59 06:59 18:59 Intake Total 480 Balance 480 Weight 115.666 kg Intake: Oral 480 Other: # Voids 0 2 1 - Exam GENERAL EXAM: Alert, oriented 62-year-old female, on room air, comfortable in no apparent distress. HEAD: Normocephalic. EYES: Normal reaction of pupils, equal size. NOSE: Clear with pink turbinates. THROAT: No erythema or exudates. NECK: No masses, no JVD. CHEST: No chest wall deformity. LUNGS: Equal air entry with few scattered rhonchi. CVS: S1 and S2 normal with no audible murmur, regular rhythm. ABDOMEN: No hepatosplenomegaly, normal bowel sounds, no guarding or rigidity. SPINE: No scoliosis or deformity SKIN: No rashes CENTRAL NERVOUS SYSTEM: No focal deficits, tone is normal in all 4 extremities. EXTREMITIES: There is no peripheral edema. No clubbing, no cyanosis. Peripheral pulses are intact. - Labs CBC & Chem 7: 08/22/23 03:25 08/22/23 03:25 Labs: Abnormal Lab Results - Last 24 Hours (Table) 08/21/23 08/22/23 08/22/23 Range/Units 14:55 03:25 03:25 WBC 13.8 H (3.8-10.6) k/uL Chloride 110 H (98-107) mmol/L Glucose 144 H (74-99) mg/dL Calcium 8.1 L (8.4-10.2) mg/dL Procalcitonin 0.13 H (0.02-0.09) ng/mL Microbiology - Last 24 Hours (Table) 08/21/23 15:11 Gram Stain - Preliminary Sputum Assessment and Plan Assessment: Acute exacerbation of severe intermittent chronic bronchial asthma. Chest x-ray shows no acute process. Influenza screen negative. RSV screen negative. COVID-19 screen negative History of tracheobronchomalacia Hypertension Hypothyroidism Obstructive sleep apnea Episodic dysphonia Anxiety History of DVT History of CVA/TIA Plan: The patient was seen and evaluated Labs and medications reviewed Continued bronchodilators, steroids Continue Mucinex, Tessalon Perles Discontinue ceftriaxone Continue doxycycline Stable and on room air I have personally seen and examined the patient, performed the documentation and the assessment and plan as written. Number of minutes spent on the visit: 10.
--- NOTE | 2023-08-22 15:17 | P.PN ---
Subjective Progress Note Date: 08/22/23 (delayed charting seen at 1015) Patient is a 62-year-old female with a history of tracheobronchial malacia, vocal cord paralysis, bronchial asthma, congestive heart failure, and multiple o ther comorbid conditions who presented to the ER with multiple complaints including fever. On arrival to the emergency department she underwent an extensive evaluation. Initial vital signs showed tachycardia with a pulse of 117 and a respiratory rate of 26. She then spiked a fever of 100.7. Initial laboratory analysis included CBC, coags, d-dimer, CMP, troponin, BNP, and magnesium was remarkable for white blood cell count of 20.9. Influenza A/B/RSV/COVID-19 testing was negative. Chest x-ray demonstrated no acute process. In the ER she was given bronchodilators, Solu-Medrol, and Rocephin. Arrangements were made for admission. Pulmonary was consulted. Patient seen and examined at bedside. She continues to have some shortness of breath, weakness, and all over not feeling well. She continues to have a headache despite taking Tylenol. She is overall feeling "terrible". At home he r headaches typically go away with Tylenol. She does not use caffeine. She did have some difficulty swallowing her pills today but states that she has was often at home on her trachea is acting up. Vital signs reviewed General: nontoxic, no distress, appears at stated age Cardiovascular: S1S2 reg, no murmur Lungs: Lungs are clear to auscultation bilaterally, there is expiratory stridor at the level of the neck no rhonchi, no rales , no accessory muscle use Abdominal: soft, nontender to palpation, no guarding, no appreciable organomegaly Ext: no gross muscle atrophy, no edema b/l lower extremities, no contractures Neuro: CN II-XI grossly intact, no focal neuro deficits Psych: Alert, oriented, appropriate affect Assessment/Plan: Acute brochitis with sepsis Acute exacerbation of bronchial asthma Hx of tranchea bronchial malasia Hx of vocal cord dysfunction ARAMIS - DuoNeb every 6 hours scheduled and every 2 hours as needed, Solu-Medrol 60 mg IV every 8 hours - Doxycycline 100 mg BID day #2 -Pulmonary note reviewed: Discontinue Rocephin due to low pro calcitonin. - Sputum culture pending - Legionella urine antigen pending - Nystatin 500,000 QID -Stop IV fluids. Resume Lasix 40 mg twice daily - Tessalon 100 mg by mouth 3 times daily as needed for cough Headache -Continue with Tylenol 650 mg by mouth every 6 hours as needed for pain, Toradol 15 mg IV push 1 now, continue with hot or cold packs as desired Compensated HFpEF - metoprolol 50 gm PO BID, Singulair 10 mg PO HS -Lasix 40 mg twice daily Hypothyroidism - Levothyroxine 50 mg daily Class III obesity with BMI 40 -Outpatient structured weight loss Chronic: GERD HTN Syncope Neuropathy Anemia Lower gi bleed C diff colitis Hiatal hernia Tachycardia Bilateral macular degeneration Imaging: Sputum culture pending Data Review: Labs reviewed from today includes CBC and basic metabolic profile which are remarkable for white blood cell count 13.8, pro calcitonin also came back at 0.13. DVT prophylaxis: Heparin subcutaneous Anticipated discharge date: 24-[address]: home This dictation was prepared using [employer] voice recognition software. T edie every attempt is made to correct errors during dictation some may still exist. Objective - Vital Signs Vital signs: Vital Signs Temp 98.5 F 08/22/23 14:13 Pulse 84 08/22/23 14:13 Resp 18 08/22/23 14:13 BP 129/74 08/22/23 14:13 Pulse Ox 96 08/22/23 14:13 FiO2 Intake & Output 08/21/23 08/22/23 08/22/23 18:59 06:59 18:59 Intake Total 480 Balance 480 Weight 115.666 kg Intake: Oral 480 Other: # Voids 0 2 1 - Labs CBC & Chem 7: 08/22/23 03:25 08/22/23 03:25 Labs: Abnormal Lab Results - Last 24 Hours (Table) 08/21/23 08/22/23 08/22/23 Range/Units 14:55 03:25 03:25 WBC 13.8 H (3.8-10.6) k/uL Chloride 110 H (98-107) mmol/L Glucose 144 H (74-99) mg/dL Calcium 8.1 L (8.4-10.2) mg/dL Procalcitonin 0.13 H (0.02-0.09) ng/mL Microbiology - Last 24 Hours (Table) 08/21/23 15:11 Gram Stain - Preliminary Sputum Sputum Culture - Preliminary
[2023-08-22] MEDS: HEPARIN SODIUM,PORCINE 5,000 UNIT/ML 1 ML VIAL SQ SCH ×2 (15:24→23:40)
[2023-08-22] MEDS: FUROSEMIDE 40 MG TAB PO SCH (15:24)
[2023-08-22] MEDS ORDERED: KETOROLAC 15 MG/ML 1 ML VIAL IVP PRN (18:02)
[2023-08-22] MEDS: LORATADINE 10 MG TAB PO SCH (20:24)
[2023-08-22] MEDS: MONTELUKAST 10 MG TAB PO SCH (20:25)
[2023-08-22] MEDS: MELATONIN 3 MG TABLET PO SCH (20:25)
[2023-08-23] MEDS: SODIUM CHLORIDE 0.9% 1,000 ML IV SCH (01:05)
[2023-08-23] MEDS: PANTOPRAZOLE 40 MG TABLET PO SCH (05:54)
[2023-08-23] MEDS: LEVOTHYROXINE 50 MCG TAB PO SCH (05:54)
[2023-08-23 06:41] LABS: HCT 35.2 % (34.0-46.0); HGB 11.8 gm/dL (11.4-16.0); MCH 30.7 pg (25.0-35.0); MCHC 33.4 g/dL (31.0-37.0); MCV 91.9 fL (80.0-100.0); Mean Platelet Volume 9.9; Platelet Count 190 k/uL (150-450); RBC 3.83 m/uL (3.80-5.40); RDW 13.4 % (11.5-15.5); WBC 15.4 k/uL (3.8-10.6)
[2023-08-23 07:00] LABS: African American GFR (CKD) 79 (>60 ml/min/1.73 sqM); Anion Gap 9 mmol/L; Blood Urea Nitrogen 30 mg/dL (7-17); Calcium 8.4 mg/dL (8.4-10.2); Carbon Dioxide 21 mmol/L (22-30); Chloride 110 mmol/L (98-107); Glucose 124 mg/dL (74-99); Magnesium 2.1 mg/dL (1.6-2.3); Non-African American GFR(CKD) 69 (>60 ml/min/1.73 sqM); Potassium 3.9 mmol/L (3.5-5.1); Sodium 140 mmol/L (137-145)
[2023-08-23 08:36] VITALS: BP 128/77; RESP 19; TEMP 98.6
[2023-08-23] MEDS: SYMBICORT 160-4.5 MCG INHALER INHALATION SCH (08:42)
[2023-08-23] MEDS: IPRATROPIUM-ALBUTEROL 3 ML NEB INHALATION SCH (08:42)
[2023-08-23 09:01] VITALS: PULSE 68
[2023-08-23] MEDS: methylPREDNISolone SOD SUCCI 125 MG/2 ML VIAL IV SCH (09:38)
[2023-08-23] MEDS ORDERED: predniSONE 20 MG TAB PO SCH (09:45)
[2023-08-23] MEDS: guaiFENesin 600 MG TABLET.ER PO SCH (10:02)
[2023-08-23] MEDS: POTASSIUM CHLORIDE ER 20 MEQ TAB.ER PO SCH (10:02)
[2023-08-23] MEDS: MULTIVITAMINS, THERA 1 EACH TAB PO SCH (10:03)
[2023-08-23] MEDS: LACTOBACILLUS ACIDOPHILUS/PECT 1 EACH CAPSULE PO SCH (10:03)
[2023-08-23] MEDS: FUROSEMIDE 40 MG TAB PO SCH (10:03)
[2023-08-23] MEDS: METOPROLOL TARTRATE 25 MG TAB PO SCH (10:03)
[2023-08-23] MEDS: HEPARIN SODIUM,PORCINE 5,000 UNIT/ML 1 ML VIAL SQ SCH (10:03)
[2023-08-23] MEDS: FLUTICASONE 50MCG/SPRAY NASAL 16GM EA NOSTRIL SCH (10:04)
[2023-08-23] MEDS: DOXYCYCLINE 100 MG CAP PO SCH (10:08)
--- NOTE | 2023-08-23 10:10 | P.DS ---
Providers Date of admission: 08/21/23 11:05 Expected date of discharge: 08/23/23 Attending physician: Ree Marie DO Consults: 08/21/23 11:05 Consult Physician Routine Consulting Provider: Sanjay Winston Reason/Comments: Dyspnea, copd Do you want consulting provider notified?: Yes Primary care physician: Lucio Potts MD Hospital Course: Discharge Diagnosis: Acute brochitis with sepsis, suspecgt viral Acute exacerbation of bronchial asthma Hx of tracheobronchial malasia Hx of vocal cord dysfunction ARAMIS Headache, resolved Compensated HFpEF Class III obesity with BMI 40 GERD HTN Syncope Neuropathy Anemia Lower GI bleed C diff colitis Hiatal hernia Tachycardia Bilateral macular degeneration Hospital Course: Patient is a 62-year-old female with a history of tracheobronchial malacia, vocal cord paralysis, bronchial asthma, congestive heart failure, and multiple other comorbid conditions who presented to the ER with multiple complaints including fever. On arrival to the emergency department she underwent an extensive evaluation. Initial vital signs showed tachycardia with a pulse of 117 and a respiratory rate of 26. She then spiked a fever of 100.7. Initial laboratory analysis included CBC, coags, d-dimer, CMP, troponin, BNP, and magnesium was remarkable for white blood cell count of 20.9. Influenza A/B/RSV/COVID-19 testing was negative. Chest x-ray demonstrated no acute process. In the ER she was given bronchodilators, Solu-Medrol, and Rocephin. Arrangements were made for admission. Pulmonary was consulted. Her procal came back less than 2, rocephin was discontinued. Her sputum culture came back negative. Her wheezing was improved and she was determined for discharge home. Follow-up: Has an appointment with Dr. Feng and she will keep that appointment. Dr Potts in 2-3 days. Prednisone nasim, the rest of her meds remain unchanged. Patient seen and examined at bedside.Doing better, still having some shortness of breath but feels as though she can manage at home. Vital signs reviewed and stable. General: nontoxic, no distress, appears at stated age, Obese Cardiovascular: S1S2 reg, no murmur, positive posterior tibial pulse bilateral, Lungs: CTA bilateral, no rhonchi, no rales , no accessory muscle use Abdominal: soft, nontender to palpation, no guarding, no appreciable organomegaly Ext: no gross muscle atrophy, no edema b/l lower extremities, no contractures Neuro: CN II-XI grossly intact, no focal neuro deficits Psych: Alert, oriented, appropriate affect A total of 40 minutes of time were spent preparing this complex discharge summary. Patient was discharged on 08/23/23. This dictation was prepared using [employer] voice recognition software. Though every attempt is made to correct errors during dictation some may still exist. Patient Condition at Discharge: Stable Plan - Discharge Summary Discharge Rx Participant: No New Discharge Prescriptions: New predniSONE 0 mg PO DIRECTED #35 tab Nystatin 100,000 Unit/gm Powd [Mycostatin Powder] 1 applic TOPICAL TID PRN #30 gm PRN Reason: yeast Continue EPINEPHrine (Auto Inject) [Epipen] 0.3 mg IM ONCE PRN PRN Reason: Anaphylaxis Ascorbic Acid [Vitamin C] 1,000 mg PO DAILY Albuterol Sulfate [Proair Hfa] 1 - 2 puff INHALATION RT-Q4H PRN PRN Reason: Shortness Of Breath Zinc 100 mg PO DAILY Potassium Chloride [Klor-Con 20] 20 meq PO DAILY Furosemide [Lasix] 40 mg PO BID@0700,1500 Montelukast [Singulair] 10 mg PO HS Levothyroxine Sodium [Synthroid] 50 mcg PO DAILY L.acidoph,Paracasei, B.lactis [Probiotic] 1 cap PO DAILY Ipratropium-Albuterol Nebulize [Duoneb 0.5 mg-3 mg/3 ml Soln] 3 ml INHALATION RT-QID Calcium Carbonate [Calcium] 600 mg PO BID Fluticasone/Vilanterol [Breo Ellipta 200-25 Mcg Inhaler] 1 puff INHALATION RT-DAILY Cranberry Fruit Extract [Cranberry] 500 mg PO DAILY Vit C/E/Zn/Coppr/Lutein/Zeaxan [Preservision Areds 2 Chew Tab] 1 tab PO BID Triamcinolone Acetonide [Nasacort] 1 - 2 spray EA NOSTRIL DAILY ALPRAZolam [Xanax] 0.5 mg PO TID PRN PRN Reason: Anxiety Famotidine [Pepcid] 40 mg PO HS Tiotropium 2.5 Mcg/Puff [Spiriva Respimat 2.5 Mcg] 2 puff INHALATION RT-DAILY SILVER sulfADIAZINE Cream [Silvadene 1% Cream] 1 applic TOPICAL BID PRN PRN Reason: RASH/WOUND guaiFENesin [Mucinex] 1,200 mg PO BID Multivit with Calcium,Iron,Min [Women's Multivitamin] 1 tab PO DAILY Levocetirizine Dihydrochloride [Xyzal] 5 mg PO HS Nystatin [Nystatin Oral Susp] 5 ml PO QID PRN PRN Reason: THRUSH Ipratropium-Albuterol Nebulize [Duoneb 0.5 mg-3 mg/3 ml Soln] 3 ml INHALATION RT-Q4H PRN PRN Reason: Shortness Of Breath Metoprolol Tartrate [Lopressor] 25 mg PO BID Discharge Medication List Albuterol Sulfate [Proair Hfa] 1 - 2 puff INHALATION RT-Q4H PRN 04/11/14 [History] Ascorbic Acid [Vitamin C] 1,000 mg PO DAILY 04/11/14 [History] EPINEPHrine (Auto Inject) [Epipen] 0.3 mg IM ONCE PRN 04/11/14 [History] Zinc 100 mg PO DAILY 04/11/14 [History] Furosemide [Lasix] 40 mg PO BID@0700,1500 04/22/15 [History] Potassium Chloride [Klor-Con 20] 20 meq PO DAILY 04/22/15 [History] Montelukast [Singulair] 10 mg PO HS 12/21/15 [History] Levothyroxine Sodium [Synthroid] 50 mcg PO DAILY 03/03/16 [History] L.acidoph,Paracasei, B.lactis [Probiotic] 1 cap PO DAILY 09/10/17 [History] Ipratropium-Albuterol Nebulize [Duoneb 0.5 mg-3 mg/3 ml Soln] 3 ml INHALATION RT-QID 12/15/18 [History] ALPRAZolam [Xanax] 0.5 mg PO TID PRN 01/15/21 [History] Calcium Carbonate [Calcium] 600 mg PO BID 01/15/21 [History] Famotidine [Pepcid] 40 mg PO HS 01/15/21 [History] Fluticasone/Vilanterol [Breo Ellipta 200-25 Mcg Inhaler] 1 puff INHALATION RT- DAILY 01/15/21 [History] SILVER sulfADIAZINE Cream [Silvadene 1% Cream] 1 applic TOPICAL BID PRN 12/03/21 [History] Tiotropium 2.5 Mcg/Puff [Spiriva Respimat 2.5 Mcg] 2 puff INHALATION RT-DAILY 12/03/21 [History] Cranberry Fruit Extract [Cranberry] 500 mg PO DAILY 04/26/23 [History] Levocetirizine Dihydrochloride [Xyzal] 5 mg PO HS 04/26/23 [History] Multivit with Calcium,Iron,Min [Women's Multivitamin] 1 tab PO DAILY 04/26/23 [History] Nystatin [Nystatin Oral Susp] 5 ml PO QID PRN 04/26/23 [History] Triamcinolone Acetonide [Nasacort] 1 - 2 spray EA NOSTRIL DAILY 04/26/23 [History] Vit C/E/Zn/Coppr/Lutein/Zeaxan [Preservision Areds 2 Chew Tab] 1 tab PO BID 04/26/23 [History] guaiFENesin [Mucinex] 1,200 mg PO BID 04/26/23 [History] Ipratropium-Albuterol Nebulize [Duoneb 0.5 mg-3 mg/3 ml Soln] 3 ml INHALATION RT-Q4H PRN 08/21/23 [History] Metoprolol Tartrate [Lopressor] 25 mg PO BID 08/21/23 [History] Nystatin 100,000 Unit/gm Powd [Mycostatin Powder] 1 applic TOPICAL TID PRN #30 gm 08/23/23 [Rx] predniSONE 0 mg PO DIRECTED #35 tab 08/23/23 [Rx] Follow up Appointment(s)/Referral(s): Lucio Potts MD [Primary Care Provider] - 1-2 days Nadeen Feng MD [STAFF PHYSICIAN] - 1-2 Days Activity/Diet/Wound Care/Special Instructions: Activity: As tolerated Diet: Heart Healthy Discharge Disposition: HOME SELF-CARE
--- NOTE | 2023-08-24 00:39 | PN ---
PROGRESS NOTE DATE OF SERVICE: 08/23/2023 SUBJECTIVE: This is a 62-year-old female well known to our service. She was seen in consultation a couple of days ago. She came into the emergency department complaining of shortness of breath, cough, chest congestion, tightness, wheezing, and phlegm production. When we saw her yesterday, she was doing much better. Again today, she was feeling much better. She was on room air. Not receiving any IV fluids. We discontinued her Solu- Medrol in favor of prednisone. The patient could be considered for possible discharge home, but will leave that up to the primary service. The patient did acknowledge the fact that she was feeling better. PHYSICAL EXAMINATION: VITAL SIGNS: Current vital signs are reviewed. Her temperature was 98.6, heart rate 68, respiratory rate 18, blood pressure 128/77, and saturations are 97% on room air. GENERAL: She appears in no acute distress. HEENT: Grossly unremarkable. NECK: Supple. Full range of motion. CARDIOVASCULAR: Reveals regular rhythm and rate. Heart rate 68 beats per minute. S1, S2 normal. No S3, S4, murmur. Heart sounds are a bit distant. PULMONARY: Reveals expiratory rhonchi. There are a few scattered wheezes. No crackles. Breath sounds equal. ABDOMEN: Obese. Bowel sounds are heard. EXTREMITIES: Intact. No cyanosis, clubbing, or edema. SKIN: Without rash. NEUROLOGIC: Brief but nonfocal. LABORATORY DATA: White count 15.4, hemoglobin 11.8, hematocrit 35.2, and platelet count was normal. Sodium 140, potassium 3.9, chloride 110, CO2 of 21, BUN and creatinine were 30 and 0.91 respectively. Microbiology thus far is all negative. Chest x-ray was reviewed. ASSESSMENT: 1. Acute exacerbation of chronic bronchial asthma. 2. History of tracheobronchomalacia. 3. Essential hypertension. 4. Hypothyroidism. 5. Obstructive sleep apnea syndrome. 6. Episodic dysphonia. 7. Chronic anxiety. 8. History of deep venous thrombosis. 9. History of cerebrovascular accident/transient ischemic attack. PLAN: The patient's antibiotic was discontinued in favor of oral antibiotic. We felt that she did not need an IV antibiotic. The patient's Solu-Medrol is converted to prednisone. The patient could be considered for possible discharge, but we will leave that up to the primary. The patient typically sees my partner in the office, and we advised her to follow up with Dr. Feng in the office. No additional recommendations are made. She has improved since seeing her a couple of days ago in the emergency department. MMODL / JOHANAN: [id number] /
[2023-08-24] MEDS ORDERED: predniSONE 20 MG TAB PO SCH (09:00)
== END 2023-08-23 11:40 | disposition home or self-care (01) | DRG 872 ==
LOC: EC 09:01 → 4SSUR 11:05
PROVIDERS: ADMIT Internal Medicine; ATTEND Internal Medicine
DX: A41.89 Other specified sepsis (principal); I50.32 Chronic diastolic (congestive) heart failure; Z68.41 Body mass index [BMI] 40.0-44.9, adult; J44.1 Chronic obstructive pulmonary disease with (acute) exacerbation; I11.0 Hypertensive heart disease with heart failure; E03.9 Hypothyroidism, unspecified; E66.01 Morbid (severe) obesity due to excess calories; G47.33 Obstructive sleep apnea (adult) (pediatric); H35.30 Unspecified macular degeneration; F41.8 Other specified anxiety disorders; G62.9 Polyneuropathy, unspecified; Z96.1 Presence of intraocular lens; J20.8 Acute bronchitis due to other specified organisms; Z96.652 Presence of left artificial knee joint; I25.10 Atherosclerotic heart disease of native coronary artery without angina pectoris; D64.9 Anemia, unspecified; K21.9 Gastro-esophageal reflux disease without esophagitis; K44.9 Diaphragmatic hernia without obstruction or gangrene; M41.9 Scoliosis, unspecified; Z79.890 Hormone replacement therapy; Z79.899 Other long term (current) drug therapy; Z86.718 Personal history of other venous thrombosis and embolism; Z86.73 Personal history of transient ischemic attack (TIA), and cerebral infarction without residual deficits; Z98.42 Cataract extraction status, left eye; Z98.41 Cataract extraction status, right eye; Z90.49 Acquired absence of other specified parts of digestive tract; Z86.19 Personal history of other infectious and parasitic diseases
CPT/HCPCS: 36415; 71046; 80048; 80053; 82803; 83605; 83735; 83880; 84145; 84484; 85025; 85027; 85379; 85610; 85730; 87040; 87070; 87205; 87636; 93005; 94640; 94760; 96361; 96365; 96375; 96376; 99285

== ENCOUNTER 2023-09-07 19:06 | Emergency (ER) | payer BC ==
--- NOTE | 2023-09-07 19:39 | ED ---
General Adult HPI - General Chief complaint: Shortness of Breath Stated complaint: SOB,COVID+ Time Seen by Provider: 09/07/23 19:39 Source: patient Mode of arrival: wheelchair Limitations: no limitations - History of Present Illness Initial comments: Patient presents to the ED with her for evaluation. Patient states that she has had symptoms of cough, fever, congestion, decreased sense of taste and dyspnea since last night. Patient states that she tested positive for Covid earlier today. Patient states that her symptoms continue, so she has come to the ED. Patient states that she last took a dose of Tylenol for her fever about 8 hours ago today. Patient denies having any pain, headache, focal neuro deficit, sore throat, chest pain, hemoptysis, palpations, dizziness, abdominal pain, nausea/vomiting/diarrhea, dysuria or urinary symptoms, decreased urine output, leg or calf swelling or pain, or any other symptoms or complaints. - Related Data Home Medications Medication Instructions Recorded Confirmed Albuterol Sulfate [Proair Hfa] 1 - 2 puff INHALATION RT-Q4H PRN 04/11/14 08/21/23 Ascorbic Acid [Vitamin C] 1,000 mg PO DAILY 04/11/14 08/21/23 EPINEPHrine (Auto Inject) [Epipen] 0.3 mg IM ONCE PRN 04/11/14 08/21/23 Zinc 100 mg PO DAILY 04/11/14 08/21/23 Furosemide [Lasix] 40 mg PO BID@0700,1500 04/22/15 08/21/23 Potassium Chloride [Klor-Con 20] 20 meq PO DAILY 04/22/15 08/21/23 Montelukast [Singulair] 10 mg PO HS 12/21/15 08/21/23 Levothyroxine Sodium [Synthroid] 50 mcg PO DAILY 03/03/16 08/21/23 L.acidoph,Paracasei, B.lactis 1 cap PO DAILY 09/10/17 08/21/23 [Probiotic] Ipratropium-Albuterol Nebulize 3 ml INHALATION RT-QID 12/15/18 08/21/23 [Duoneb 0.5 mg-3 mg/3 ml Soln] ALPRAZolam [Xanax] 0.5 mg PO TID PRN 01/15/21 08/21/23 Calcium Carbonate [Calcium] 600 mg PO BID 01/15/21 08/21/23 Famotidine [Pepcid] 40 mg PO HS 01/15/21 08/21/23 Fluticasone/Vilanterol [Breo 1 puff INHALATION RT-DAILY 01/15/21 08/21/23 Ellipta 200-25 Mcg Inhaler] SILVER sulfADIAZINE Cream 1 applic TOPICAL BID PRN 12/03/21 08/21/23 [Silvadene 1% Cream] Tiotropium 2.5 Mcg/Puff [Spiriva 2 puff INHALATION RT-DAILY 12/03/21 08/21/23 Respimat 2.5 Mcg] Cranberry Fruit Extract [Cranberry] 500 mg PO DAILY 04/26/23 08/21/23 Levocetirizine Dihydrochloride 5 mg PO HS 04/26/23 08/21/23 [Xyzal] Multivit with Calcium,Iron,Min 1 tab PO DAILY 04/26/23 08/21/23 [Women's Multivitamin] Nystatin [Nystatin Oral Susp] 5 ml PO QID PRN 04/26/23 08/21/23 Triamcinolone Acetonide [Nasacort] 1 - 2 spray EA NOSTRIL DAILY 04/26/23 08/21/23 Vit C/E/Zn/Coppr/Lutein/Zeaxan 1 tab PO BID 04/26/23 08/21/23 [Preservision Areds 2 Chew Tab] guaiFENesin [Mucinex] 1,200 mg PO BID 04/26/23 08/21/23 Ipratropium-Albuterol Nebulize 3 ml INHALATION RT-Q4H PRN 08/21/23 08/21/23 [Duoneb 0.5 mg-3 mg/3 ml Soln] Metoprolol Tartrate [Lopressor] 25 mg PO BID 08/21/23 08/21/23 Previous Rx's Medication Instructions Recorded Nystatin 100,000 Unit/gm Powd 1 applic TOPICAL TID PRN #30 gm 08/23/23 [Mycostatin Powder] predniSONE 0 mg PO DIRECTED #35 tab 08/23/23 Allergies Allergy/AdvReac Type Severity Reaction Status Date / Time Aminoglycosides Allergy Unknown Verified 09/07/23 19:13 honey Allergy Anaphylaxis Verified 09/07/23 19:13 moxifloxacin HCl Allergy Unknown Verified 09/07/23 19:13 [From Avelox] peanut Allergy Anaphylaxis Verified 09/07/23 19:13 azithromycin [From Zithromax] AdvReac Nausea & Verified 09/07/23 19:13 Vomiting & Diarrhea clindamycin AdvReac Dyspnea Verified 09/07/23 19:13 levofloxacin [From Levaquin] AdvReac Dyspnea, Verified 09/07/23 19:13 THROAT SWOLLEN neomycin [Neomycin] AdvReac Dyspnea Verified 09/07/23 19:13 omalizumab [From Xolair] AdvReac Dyspnea Verified 09/07/23 19:13 trimethoprim [From Bactrim] AdvReac Diarrhea/co Verified 09/07/23 19:13 litis Review of Systems ROS Statement: Those systems with pertinent positive or pertinent negative responses have been documented in the HPI. ROS Other: All systems not noted in ROS Statement are negative. Past Medical History Past Medical History: Asthma, Heart Failure, COPD, CVA/TIA, Deep Vein Thrombosis (DVT), Eye Disorder, GERD/Reflux, Hypertension, Osteoarthritis (OA), Respiratory Disorder, Sleep Apnea/CPAP/BIPAP, Syncope, Thyroid Disorder Additional Past Medical History / Comment(s): Paradoxical vocal cord function/episodic dysphonia, dysphagia, tracheobronchial malasia, severe persistent bronchial asthma. ARAMIS with Cpap. TIA. scoliosis/spondylosis. neuropathy bilateral lower legs/feet. anemia. lower GI bleed. Cdiff colitis, hiatal hernia, tachycardia, hypothyroid, BILAT MACULAR DEGENERATION, celiac disease History of Any Multi-Drug Resistant Organisms: C-DIFF Date of last positivie culture/infection: 04/22/15 MDRO Source:: stool Past Surgical History: Breast Surgery, Cholecystectomy, Heart Catheterization, Joint Replacement, Orthopedic Surgery, Tubal Ligation, Uterine Ablation Additional Past Surgical History / Comment(s): Multiple bronchoscopies, colonoscopy with benign polypectomy, bowel resection d/t perforation during colonoscopy, cyst removed near esophagus, vocal cords scrapped, L breast benign bx, D&C, bilateral knee arthroscopies with R side done twice, R arm tendon release. LT TKA, BILAT CATARACTS REMOVED WITH LENS IMPLANTS Past Anesthesia/Blood Transfusion Reactions: Postoperative Nausea & Vomiting (PONV) Additional Past Anesthesia/Blood Transfusion Reaction / Comment(s): Pt has never recieved blood. Past Psychological History: Anxiety Smoking Status: Never smoker Past Alcohol Use History: None Reported Past Drug Use History: None Reported - Past Family History Father Family Medical History: Cancer, Congestive Heart Failure (CHF), CVA/TIA, Myocardial Infarction (HI), Prostate Disorder Additional Family Medical History / Comment(s): at age 84- choked on a hot dog Mother Family Medical History: Cancer, Osteoarthritis (OA) Additional Family Medical History / Comment(s): Breast cancer General Exam Limitations: no limitations General appearance: alert, in no apparent distress Head exam: Present: normocephalic Eye exam: Present: normal appearance ENT exam: Present: normal oropharynx, mucous membranes moist Neck exam: Present: other (Trachea is in midline). Absent: tenderness, meningismus Respiratory exam: Present: normal lung sounds bilaterally. Absent: respiratory distress, wheezes, rales, rhonchi, stridor Cardiovascular Exam: Present: normal rhythm, tachycardia, normal heart sounds, other (Normal radial pulses bilaterally) GI/Abdominal exam: Present: soft. Absent: tenderness, guarding Extremities exam: Absent: tenderness, pedal edema, calf tenderness Neurological exam: Present: alert, oriented X3 Skin exam: Present: warm, dry, normal color Course Vital Signs 09/07/23 09/07/23 09/07/23 19:14 19:46 20:00 Temperature 103.1 F H Pulse Rate 102 H 96 95 Respiratory 24 Rate Blood Pressure 131/84 140/76 O2 Sat by Pulse 98 97 98 Oximetry - Reevaluation(s) Reevaluation #1: 09/07/23 20:57 Patient remains alert and breathing comfortably with clear breath sounds bilaterally and a normal room air oxygen saturation. Patient and are aware of the patient's negative chest x-ray, and they both feel comfortable with the patient being discharged home at this time. They were counseled about Covid infection, fever control and isolation precautions. They were clearly explained return and follow-up instructions. Strict return instructions were provided. Patient was instructed to follow up closely with her primary care provider. Patient feels comfortable with this plan. Medical Decision Making - Medical Decision Making Was pt. sent in by a medical professional or institution (, PA, CERTIFIED INDUSTRIAL HYGIENIST, urgent care, hospital, or half-way...) When possible be specific @ -No Did you speak to anyone other than the patient for history (EMS, parent, family, police, friend...)? What history was obtained from this source @ -No Did you review nursing and triage notes (agree or disagree)? Why? @ -I reviewed and agree with nursing and triage notes Were old charts reviewed (outside hosp., previous admission, EMS record, old EKG, old radiological studies, urgent care reports/EKG's, half-way records)? Report findings @ -No old charts were reviewed Differential Diagnosis (chest pain, altered mental status, abdominal pain women, abdominal pain men, vaginal bleeding, weakness, fever, dyspnea, syncope, headache, dizziness, GI bleed, back pain, seizure, CVA, palpatations, mental health, musculoskeletal)? @ -Dyspnea, COPD, asthma, pleural effusion, pneumonia, bronchitis, URI, Covid, viral illness, fever EKG interpreted by me (3pts min.). @ -None done X-rays interpreted by me (1pt min.). @ -Chest x-ray was reviewed myself and shows no acute abnormality. CT interpreted by me (1pt min.). @ -None done U/S interpreted by me (1pt. min.). @ -None done What testing was considered but not performed or refused? (CT, X-rays, U/S, labs)? Why? @ -None What meds were considered but not given or refused? Why? @ -None Did you discuss the management of the patient with other professionals (richie turner i.e. , PA, CERTIFIED INDUSTRIAL HYGIENIST, lab, RT, psych nurse, social service manager, remote sensing specialist, teacher, giving officer, case managers)? Give summary @ -No Was smoking cessation discussed for >3mins.? @ -No Was critical care preformed (if so, how long)? @ -No Were there social determinants of health that impacted care today? How? (Homelessness, low income, unemployed, alcoholism, drug addiction, transportation, low edu. Level, literacy, decrease access to med. care, [facility], rehab)? @ -No Was there de-escalation of care discussed even if they declined (Discuss DNR or withdrawal of care, Hospice)? DNR status @ -No What co-morbidities impacted this encounter? (DM, HTN, Smoking, COPD, CAD, Cancer, CVA, ARF, Chemo, Hep., AIDS, mental health diagnosis, sleep apnea, morbid obesity)? @ -None Was patient admitted / discharged? Hospital course, mention meds given and route, prescriptions, significant lab abnormalities, going to OR and other pertinent info. @ -Patient reports having symptoms since yesterday and a positive Covid test today. Patient's chest x-ray is fairly unremarkable. Patient is breathing comfortably with clear breath sounds bilaterally and a normal room air oxygen saturation. I do not suspect an emergent medical condition at this time. Will discharge patient home at this time. Patient feels comfortable with this plan. Undiagnosed new problem with uncertain prognosis? @ -No Drug Therapy requiring intensive monitoring for toxicity (Heparin, Nitro, Insulin, Cardizem)? @ -No Were any procedures done? @ -No Diagnosis/symptom? @ -COVID-19 infection Acute, or Chronic, or Acute on Chronic? @ -Acute Uncomplicated (without systemic symptoms) or Complicated (systemic symptoms)? @ -default Side effects of treatment? @ -No Exacerbation, Progression, or Severe Exacerbation? @ -No Poses a threat to life or bodily function? How? (Chest pain, USA, HI, pneumonia, PE, COPD, DKA, ARF, appy, cholecystitis, CVA, Diverticulitis, Homicidal, Suicidal, threat to staff... and all critical care pts) @ -No - Radiology Data Chest x-ray (interpreted by me): No focal consolidation. Disposition Clinical Impression: COVID-19 Disposition: HOME SELF-CARE Condition: Stable Instructions (If sedation given, give patient instructions): COVID-19: Slow the Coronavirus Spread (ED), COVID-19 (Coronavirus Disease 2019) (ED), Fever in Adults (ED) Additional Instructions: Return to the ER immediately should you develop increased shortness of breath, any significant pain, vomiting, feeling dizzy or faint, or new or worsening symptoms. Follow up closely with your primary care provider. Is patient prescribed a controlled substance at d/c from ED?: No Referrals: Lucio Potts MD [Primary Care Provider] - 1-2 days Time of Disposition: 21:01
[2023-09-07] MEDS ORDERED: ACETAMINOPHEN TAB 500 MG TAB PO STA (19:50)
[2023-09-07] MEDS ORDERED: IBUPROFEN 600 MG TAB PO STA (19:51)
[2023-09-07 21:55] VITALS: BP 122/60; PULSE 89; RESP 18; TEMP 98.8
--- NOTE | 2023-09-07 22:23 | XR ---
EXAMINATION TYPE: XR chest 2V DATE OF EXAM: 09/07/2023 8:09 PM CLINICAL INDICATION:Female, 62 years old with history of dyspnea, Covid +; [facility] COMPARISON: 08/21/2023 TECHNIQUE: XR chest 2V Frontal and lateral views of the chest. FINDINGS: Lines/Tubes: EKG leads overlie the chest. No indwelling lines are seen. Lungs/Pleura: There is no evidence of pleural effusion, focal consolidation, or pneumothorax. Pulmonary vascularity: Mild central vascular congestion, similar to prior study. Heart/mediastinum: Cardiomediastinal silhouette is stable. Heart size upper normal. Mildly tortuous a pasquale. Musculoskeletal: No acute osseous pathology. Mild degenerative changes of the shoulders and spine. Other findings: None significant. Surgical clips in the upper abdomen. IMPRESSION: No acute findings, or significant interval change.
== END 2023-09-07 21:47 | disposition home or self-care (01) ==
LOC: EC 19:06
DX: U07.1 COVID-19 (principal); I11.0 Hypertensive heart disease with heart failure; I50.9 Heart failure, unspecified; J44.89 Other specified chronic obstructive pulmonary disease; E03.9 Hypothyroidism, unspecified; M19.90 Unspecified osteoarthritis, unspecified site; K21.9 Gastro-esophageal reflux disease without esophagitis; Z86.73 Personal history of transient ischemic attack (TIA), and cerebral infarction without residual deficits; Z86.718 Personal history of other venous thrombosis and embolism; F41.9 Anxiety disorder, unspecified; Z91.010 Allergy to peanuts; Z91.018 Allergy to other foods; Z88.1 Allergy status to other antibiotic agents; Z88.8 Allergy status to other drugs, medicaments and biological substances; Z79.890 Hormone replacement therapy; Z79.51 Long term (current) use of inhaled steroids; Z79.899 Other long term (current) drug therapy
CPT/HCPCS: 71046; 99284

== ENCOUNTER → 2023-10-24 | Outpatient (CLI) | payer BC ==
--- NOTE | 2023-10-24 12:02 | XR ---
EXAMINATION TYPE: XR chest 2V DATE OF EXAM: 10/24/2023 COMPARISON: 09/07/2023 INDICATION: Fever TECHNIQUE: Frontal and lateral views of the chest are obtained. FINDINGS: The heart size is normal. The pulmonary vasculature is normal. The lungs are clear. IMPRESSION: 1. No acute pulmonary process.
== END | disposition home or self-care (01) ==
LOC: RADXRMAIN 10:09
PROVIDERS: ATTEND Internal Medicine
DX: R05.9 Cough, unspecified (principal); R50.9 Fever, unspecified
CPT/HCPCS: 71046

== ENCOUNTER → 2024-01-03 | Outpatient (CLI) | payer BC ==
--- NOTE | 2024-01-03 22:38 | BD ---
EXAMINATION TYPE: Axial Bone Density DATE OF EXAM: 01/03/2024 CLINICAL HISTORY: 63 years old Female. ICD-10 CODE: M85.80 OT DISRD OF BONE DENSITY Height: 66 Weight: 250 FRAX RISK QUESTIONS: History of Fracture in Adulthood: yes Secondary Osteoporosis: no RISK FACTORS HISTORY OF: Surgery to Spine/Hip(right/left)/Wrist (right/left): no MEDICATIONS: Thyroid Medications: yes Which medication: Synthroid How Lon+ years Osteoporosis Medications: no EXAM MEASUREMENTS: Bone mineral densitometry was performed using the [employer] System. Bone mineral density as measured about the Lumbar spine is: ----- L1-L4(G/cm2): 1.155 T Score Values are as follows: ----- L1: 0.7 ----- L2: -0.3 ----- L3: -1.1 ----- L4: -0.2 ----- L1-L4: -0.2 Z Score Values are as follows: ----- L1: 0.8 ----- L2: -0.1 ----- L3: -1.0 ----- L4: -0.1 ----- L1-L4: -0.1 Bone mineral density has: Increased 7.3% since study of: 10/12/2021 Bone mineral density about the R hip (g/cm2): 0.797 Bone mineral density about the L hip (g/cm2): 0.721 T Score values are as follows: -----R Neck: -1.9 -----L Neck: -2.4 -----R Total: -1.7 -----L Total: -2.3 Z Score values are as follows: -----R Neck: -1.4 -----L Neck: -1.9 -----R Total: -1.5 -----L Total: -2.1 Bone mineral density has: Decreased -9.3% since study of: 10/12/2021 FRAX%s: The graph provided illustrates a 17.2% chance for a major osteoporotic fx and a 3.0% chance f or the hips probability for fx in 10 years time. IMPRESSION: Osteopenia (T Score between -2.5 and -1). There is slightly increased risk of fracture and the patient may be considered for treatment. Re-Screen 2-5 years. NOTE: T-SCORE=SD OF THE YOUNG ADULT MEAN.
--- NOTE | 2024-01-04 07:53 | MM ---
Reason for Exam: Screening (asymptomatic). Last screening mammogram was performed 12 month(s) ago. Patient History: Menarche at age 14. First Full-Term at age 26. Postmenopausal. Patient has history of breast feeding. 10/02/2007, Benign Ultrasound-Guided FNA Biopsy on the left side. 10/02/2007, Bilateral Benign Core Biopsy. 03/19/2013, Cancelled Left Mammotome on the left side. Mother had breast cancer, age 60. Risk Values: Charisma 5 year model risk: 4.2%. NCI Lifetime model risk: 19.1%. Prior Study Comparison: 01/08/2016 Bilateral Screening Mammogram, LOC[facility]IN [facility]. 06/27/2018 Bilateral Screening Mammogram, [facility]. 11/26/2021 Bilateral Screening Mammogram, [facility]. 12/28/2022 Bilateral MG screening mammo w CAD, LOC[facility]IN [facility]. Tissue Density: There are scattered areas of fibroglandular density. Findings: Analyzed By CAD. Left breast biopsy clip. There is no suspicious group of microcalcifications or new suspicious mass. Overall Assessment: Benign, BI-RAD 2 Management: Screening Mammogram of both breasts in [address] [facility] will attempt to contact patient to return for supplemental views and ultrasound if indicated. Patient should continue monthly self-breast exams. A clinical breast exam by your physician is recommended on an annual basis. This exam should not preclude additional follow-up of suspicious palpable abnormalities. Note on Charisma scores and lifetime risk: 1. A Charisma score greater than 3% is considered moderate risk. If this is the case, consider specialist referral to assess eligibility for a risk reducing agent. 2. If overall lifetime risk for the development of breast cancer is 20% or higher, the patient may qualify for future screening with alternating mammogram and breast MRI. Electronically signed and approved by: Sanjay Cisse DO
== END | disposition home or self-care (01) ==
LOC: RADMAMWWP 09:16
PROVIDERS: ATTEND Internal Medicine
DX: Z12.31 Encounter for screening mammogram for malignant neoplasm of breast (principal); M85.89 Other specified disorders of bone density and structure, multiple sites; Z78.0 Asymptomatic menopausal state; Z80.3 Family history of malignant neoplasm of breast
CPT/HCPCS: 77067; 77080

== ENCOUNTER → 2024-03-06 | Outpatient (CLI) | payer BC ==
--- NOTE | 2024-03-06 09:26 | P.GSCN ---
History of Present Illness Consult date: 03/06/24 Reason for Consult: High risk breast cancer Requesting physician: Lucio Potts History of present illness: Eva is a 63-year-old white female seen in consultation for Dr. Brown regarding high risk for breast cancer. She had a bilateral mammogram on 01-03-24, this was personally reviewed with DR. Power. She is not complaining of any new lumps, masses, or nodules of concern. She had a left breast stero b iopsy about 8 years ago which was benign. She has not had any other surgery on her breast. She is not complaining of any nipple discharge or skin changes. She has not had any recent trauma or infection in her breast. Of her radiographs with Dr. Perez it was recommended that she have a repeat left breast mammogram in 6 months. Caffeine: occasional nicotine: none chocolate: weekly BCP: none hormones: none Charisma 5 year risk: 4.2% lifetime: 19.1% Family History: mother: bilateral breast cancer, in her 70's father: prostate cancer granddaughter: Neuroblastoma at the age of 2 1/2 Hormone History: menarche: 15 , breast fed: yes, age at first : 25 menopause: March 2017, born in 1960; age 48 Surgical History: Cardiac cath Cholecystectomy Left breast biopsy D&C/tubal ligation Right and left knee arthro-'s copy Neck cyst removed Perforated bowel resected Vocal cord Spinal cord and nerve x 2 Bilateral cataract Left total knee Medical history: Asthma/tracheobronchitis Upper airway obstruction with stridor Hypertension GERD Episodic hoarseness Tachycardia Scoliosis Social history: Nicotine: Negative Alcohol: Negative Drugs: Negative Allergies: Peanuts/honey/gluten/aminog lycosides/Levaquin/Xolair/neomycin/clindamycin/Zithromax/bacitracin or Bactrim/Avalox Review of Systems - Constitutional Reports sweats - EENT EENT Comment(s): macular degenerative eye disease Eyes: bilateral as per HPI Ears: left: tinnitus Ears, nose, mouth and throat: Reports hoarseness - Breasts bilateral: as per HPI - Cardiovascular Reports as per HPI, Reports shortness of breath - Respiratory Reports as per HPI - Gastrointestinal Gastrointestinal Comment(s): glutin disease, GERD - Genitourinary Genitourinary: Denies dysuria, Denies hematuria Menstruation: Reports postmenopausal - Musculoskeletal Reports myalgias - Integumentary Denies rash, Denies unusual bruising - Neurological Denies headaches, Denies syncope - Psychiatric Reports as per HPI - Endocrine Endocrine Comment(s): sleep apnea Reports fatigue - Hematologic/Lymphatic Denies easy bleeding, Denies easy bruising - Allergic/Immunologic Reports as per HPI Past Medical History Past Medical History: Asthma, Heart Failure, COPD, CVA/TIA, Deep Vein Thrombosis (DVT), Eye Disorder, GERD/Reflux, Hypertension, Osteoarthritis (OA), Respiratory Disorder, Sleep Apnea/CPAP/BIPAP, Syncope, Thyroid Disorder Additional Past Medical History / Comment(s): Paradoxical vocal cord function/episodic dysphonia, dysphagia, tracheobronchial malasia, severe persistent bronchial asthma. ARAMIS with Cpap. TIA. scoliosis/spondylosis. neuropathy bilateral lower legs/feet. anemia. lower GI bleed. Cdiff colitis, hiatal hernia, tachycardia, hypothyroid, BILAT MACULAR DEGENERATION, celiac disease History of Any Multi-Drug Resistant Organisms: C-DIFF Year Discovered:: 04/22/15 MDRO Source:: stool Past Surgical History: Breast Surgery, Cholecystectomy, Heart Catheterization, Joint Replacement, Orthopedic Surgery, Tubal Ligation, Uterine Ablation Additional Past Surgical History / Comment(s): Multiple bronchoscopies, colonoscopy with benign polypectomy, bowel resection d/t perforation during colonoscopy, cyst removed near esophagus, vocal cords scrapped, L breast benign bx, D&C, bilateral knee arthroscopies with R side done twice, R arm tendon release. LT TKA, BILAT CATARACTS REMOVED WITH LENS IMPLANTS Past Anesthesia/Blood Transfusion Reactions: Postoperative Nausea & Vomiting (PONV) Additional Past Anesthesia/Blood Transfusion Reaction / Comm: Pt has never recieved blood. Past Psychological History: Anxiety Smoking Status: Never smoker Past Alcohol Use History: None Reported Past Drug Use History: None Reported - Past Family History Father Family Medical History: Cancer, Congestive Heart Failure (CHF), CVA/TIA, Myocardial Infarction ([place]), Prostate Disorder Additional Family Medical History / Comment(s): at age 84- choked on a hot dog Mother Family Medical History: Cancer, Osteoarthritis (OA) Additional Family Medical History / Comment(s): Breast cancer Medications and Allergies Home Medications Medication Instructions Recorded Confirmed Type Albuterol Sulfate [Proair Hfa] 1 - 2 puff INHALATION RT-Q4H PRN 04/11/14 08/21/23 History Ascorbic Acid [Vitamin C] 1,000 mg PO DAILY 04/11/14 08/21/23 History EPINEPHrine (Auto Inject) [Epipen] 0.3 mg IM ONCE PRN 04/11/14 08/21/23 History Zinc 100 mg PO DAILY 04/11/14 08/21/23 History Furosemide [Lasix] 40 mg PO BID@0700,1500 04/22/15 08/21/23 History Potassium Chloride [Klor-Con 20] 20 meq PO DAILY 04/22/15 08/21/23 History Montelukast [Singulair] 10 mg PO HS 12/21/15 08/21/23 History Levothyroxine Sodium [Synthroid] 50 mcg PO DAILY 03/03/16 08/21/23 History L.acidoph,Paracasei, B.lactis 1 cap PO DAILY 09/10/17 08/21/23 History [Probiotic] Ipratropium-Albuterol Nebulize 3 ml INHALATION RT-QID 12/15/18 08/21/23 History [Duoneb 0.5 mg-3 mg/3 ml Soln] ALPRAZolam [Xanax] 0.5 mg PO TID PRN 01/15/21 08/21/23 History Calcium Carbonate [Calcium] 600 mg PO BID 01/15/21 08/21/23 History Famotidine [Pepcid] 40 mg PO HS 01/15/21 08/21/23 History Fluticasone/Vilanterol [Breo 1 puff INHALATION RT-DAILY 01/15/21 08/21/23 History Ellipta 200-25 Mcg Inhaler] SILVER sulfADIAZINE Cream 1 applic TOPICAL BID PRN 12/03/21 08/21/23 History [Silvadene 1% Cream] Tiotropium 2.5 Mcg/Puff [Spiriva 2 puff INHALATION RT-DAILY 12/03/21 08/21/23 History Respimat 2.5 Mcg] Cranberry Fruit Extract [Cranberry] 500 mg PO DAILY 04/26/23 08/21/23 History Levocetirizine Dihydrochloride 5 mg PO HS 04/26/23 08/21/23 History [Xyzal] Multivit with Calcium,Iron,Min 1 tab PO DAILY 04/26/23 08/21/23 History [Women's Multivitamin] Nystatin [Nystatin Oral Susp] 5 ml PO QID PRN 04/26/23 08/21/23 History Triamcinolone Acetonide [Nasacort] 1 - 2 spray EA NOSTRIL DAILY 04/26/23 08/21/23 History Vit C/E/Zn/Coppr/Lutein/Zeaxan 1 tab PO BID 04/26/23 08/21/23 History [Preservision Areds 2 Chew Tab] guaiFENesin [Mucinex] 1,200 mg PO BID 04/26/23 08/21/23 History Ipratropium-Albuterol Nebulize 3 ml INHALATION RT-Q4H PRN 08/21/23 08/21/23 History [Duoneb 0.5 mg-3 mg/3 ml Soln] Metoprolol Tartrate [Lopressor] 25 mg PO BID 08/21/23 08/21/23 History Nystatin 100,000 Unit/gm Powd 1 applic TOPICAL TID PRN #30 gm 08/23/23 Rx [Mycostatin Powder] predniSONE 0 mg PO DIRECTED #35 tab 08/23/23 Rx Allergies Allergy/AdvReac Type Severity Reaction Status Date / Time Aminoglycosides Allergy Unknown Verified 09/07/23 19:13 honey Allergy Anaphylaxis Verified 09/07/23 19:13 moxifloxacin HCl Allergy Unknown Verified 09/07/23 19:13 [From Avelox] peanut Allergy Anaphylaxis Verified 09/07/23 19:13 azithromycin [From Zithromax] AdvReac Nausea & Verified 09/07/23 19:13 Vomiting & Diarrhea clindamycin AdvReac Dyspnea Verified 09/07/23 19:13 levofloxacin [From Levaquin] AdvReac Dyspnea, Verified 09/07/23 19:13 THROAT SWOLLEN neomycin [Neomycin] AdvReac Dyspnea Verified 09/07/23 19:13 omalizumab [From Xolair] AdvReac Dyspnea Verified 09/07/23 19:13 trimethoprim [From Bactrim] AdvReac Diarrhea/co Verified 09/07/23 19:13 litis Surgical - Exam - General no distress - Eyes normal ocular movement - ENT no hearing loss - Neck trachea midline - Respiratory normal respiratory effort, clear to auscultation - Cardiovascular Heart Sounds: normal: S1, S2 - Abdomen Abdomen: soft, non tender, no guarding, no rigid, no rebound - Integumentary normal turgor - Neurologic no disoriented, no combative - Musculoskeletal difficulty with ambulatioin - Psychiatric oriented to time, oriented to person, oriented to place, speech is normal, memory intact Breast Exam: BRA: sports bra medium Inspection: Grade 3 ptosis palpation: Breast: Multi positional exam no dominant masses or nodules of concern Right axilla: No adenopathy of concern Left breast: Multi positional exam no dominant masses or nodules of concern Left axilla: No adenopathy of concern Results Review of bilateral mammogram with Dr. Perez recommend repeat left breast mammogram in 6 months, bilateral mammogram in 1 year Assessment and Plan Assessment: Impression: Abnormal left breast mammogram High Charisma risk for breast cancer; Charisma Risk 4.2% at 5 years ; declined chemoprophylaxis Lifetime risk does not reach 20% we have talked about alternating MRI versus mammogram every 6 months but she does not reach 20% lifetime risk at this time Plan: The left breast mammogram in June with examination at that time Repeat bilateral mammogram in December 2024 with examination Patient to follow-up sooner any questions or concerns CC: Dr. Potts
[2024-03-06 09:43] VITALS: BP 131/83; PULSE 78; RESP 17; TEMP 98.1
== END ==
LOC: WWCWWP 08:35
PROVIDERS: ATTEND Surgery
DX: R92.8 Other abnormal and inconclusive findings on diagnostic imaging of breast (principal); Z88.1 Allergy status to other antibiotic agents; Z91.018 Allergy to other foods; Z88.8 Allergy status to other drugs, medicaments and biological substances; Z91.010 Allergy to peanuts; Z80.3 Family history of malignant neoplasm of breast

== ENCOUNTER → 2024-03-06 | Outpatient (CLI) | payer BC | LOC: WWCWWP 08:50 | PROVIDERS: ATTEND Surgery | DX: Z53.9 Procedure and treatment not carried out, unspecified reason (principal) ==

== ENCOUNTER → 2024-07-09 | Outpatient (CLI) | payer BC ==
--- NOTE | 2024-07-09 10:41 | MM ---
Reason for Exam: Follow-up at short interval from prior study. Last screening mammogram was performed 6 month(s) ago. Patient History: Menarche at age 14. First Full-Term at age 26. Postmenopausal. Patient has history of breast feeding. 10/02/2007, Benign Ultrasound-Guided FNA Biopsy on the left side. 10/02/2007, Bilateral Benign Core Biopsy. 03/19/2013, Cancelled Left Mammotome on the left side. Mother had breast cancer, age 60. Risk Values: Charisma 5 year model risk: 4.2%. NCI Lifetime model risk: 19.1%. Prior Study Comparison: 01/08/2016 Bilateral Screening Mammogram, [facility]. 06/27/2018 Bilateral Screening Mammogram, [facility]. 11/26/2021 Bilateral Screening Mammogram, [facility]. 12/28/2022 Bilateral MG screening mammo w CAD, [facility]. 01/03/2024 Bilateral MG screening mammo w CAD, [facility]. Tissue Density: Left: There are scattered areas of fibroglandular density. Findings: Analyzed By CAD. There appears stable. Previous nodular density outer left breast is unremarkable current exam. No suspicious groups of microcalcifications, spiculated or lobular masses, architectural distortion or other secondary signs of malignancy are mammographically apparent. Overall Assessment: Benign, BI-RAD 2 Management: Screening Mammogram of both breasts in 6 months. A negative mammogram report should not preclude additional follow up of suspicious palpable abnormalities. Patient should continue monthly self breast exam. A clinical breast exam by your physician is recommended on an annual basis and results should be correlated with mammographic findings. Note on Charisma scores and lifetime risk: 1. A Charisma score greater than 3% is considered moderate risk. If this is the case, consider specialist referral to assess eligibility for a risk reducing agent. 2. If overall lifetime risk for the development of breast cancer is 20% or higher, the patient may qualify for future screening with alternating mammogram and breast MRI. [facility], , 07/09/2024 10:11 AM. Electronically signed and approved by: Adam Perez D.O. Radiologis
== END | disposition home or self-care (01) ==
LOC: RADMAMWWP 09:31
PROVIDERS: ATTEND Surgery
DX: R92.8 Other abnormal and inconclusive findings on diagnostic imaging of breast
CPT/HCPCS: 77061; 77065

== ENCOUNTER → 2024-07-11 | Outpatient (CLI) | payer BC ==
[2024-07-11 09:49] VITALS: BP 138/82; PULSE 70; RESP 17; TEMP 98.1
--- NOTE | 2024-07-11 10:03 | P.PN ---
Subjective Progress Note Date: 07/11/24 Principal diagnosis: high risk for breast cancer High risk breast cancer Requesting physician: Lucio Potts History of present illness: Eva is a 63-year-old white female seen in consultation for Dr. Brown regarding high risk for breast cancer. She had a bilateral mammogram on 01-03-24, this was personally reviewed with DR. Power. She was not complaining of any new lumps, masses, or nodules of concern. She had a left breast stero biopsy about 8 years ago which was benign. She has not had any other surgery on her breast. She is not complaining of any nipple discharge or skin changes. She had not had any recent trauma or infection in her breast. Of her radiograph of 01-03-[address] Perez it was recommended that she have a repeat left breast mammogram in 6 months. This was done on 07-09-24 and was BIRAD 2. It was personally reviewed and interpreted. She is not complaining of any new lumps, masses, or lesions in either breast. We have discussed chemoprophylaxes and she has declined at this time. Caffeine: occasional nicotine: none chocolate: weekly BCP: none hormones: none Charisma 5 year risk: 4.2% lifetime: 19.1% Family History: mother: bilateral breast cancer, in her 70's father: prostate cancer granddaughter: Neuroblastoma at the age of 2 1/2 Hormone History: menarche: 15 , breast fed: yes, age at first : 25 menopause: March 2017, born in 1960; age 48 Surgical History: Cardiac cath Cholecystectomy Left breast biopsy D&C/tubal ligation Right and left knee arthro-'s copy Neck cyst removed Perforated bowel resected Vocal cord Spinal cord and nerve x 2 Bilateral cataract Left total knee Medical history: Asthma/tracheobronchitis Upper airway obstruction with stridor Hypertension GERD Episodic hoarseness Tachycardia Scoliosis Social history: Nicotine: Negative Alcohol: Negative Drugs: Negative Allergies: Peanuts/honey/gluten/aminoglycosides/Levaquin/Xolair/neomycin/clindamycin/Zithro max/bacitracin or Bactrim/Avalox Review of Systems - Constitutional Reports sweats - EENT EENT Comment(s): macular degenerative eye disease Eyes: bilateral as per HPI Ears: left: tinnitus Ears, nose, mouth and throat: Reports hoarseness - Breasts bilateral: as per HPI - Cardiovascular Reports as per HPI, Reports shortness of breath - Respiratory Reports as per HPI - Gastrointestinal Gastrointestinal Comment(s): glutin disease, GERD - Genitourinary Genitourinary: Denies dysuria, Denies hematuria Menstruation: Reports postmenopausal - Musculoskeletal Reports myalgias - Integumentary Denies rash, Denies unusual bruising - Neurological Denies headaches, Denies syncope - Psychiatric Reports as per HPI - Endocrine Endocrine Comment(s): sleep apnea Reports fatigue - Hematologic/Lymphatic Denies easy bleeding, Denies easy bruising - Allergic/Immunologic Reports as per HPI Past Medical History Past Medical History: Asthma, Heart Failure, COPD, CVA/TIA, Deep Vein Thrombosis (DVT), Eye Disorder, GERD/Reflux, Hypertension, Osteoarthritis (OA), Respiratory Disorder, Sleep Apnea/CPAP/BIPAP, Syncope, Thyroid Disorder Additional Past Medical History / Comment(s): Paradoxical vocal cord function/episodic dysphonia, dysphagia, tracheobronchial malasia, severe persistent bronchial asthma. ARAMIS with Cpap. TIA. scoliosis/spondylosis. neuropathy bilateral lower legs/feet. anemia. lower GI bleed. Cdiff colitis, hiatal hernia, tachycardia, hypothyroid, BILAT MACULAR DEGENERATION, celiac disease History of Any Multi-Drug Resistant Organisms: C-DIFF Year Discovered:: 04/22/15 MDRO Source:: stool Past Surgical History: Breast Surgery, Cholecystectomy, Heart Catheterization, Joint Replacement, Orthopedic Surgery, Tubal Ligation, Uterine Ablation Additional Past Surgical History / Comment(s): Multiple bronchoscopies, colonoscopy with benign polypectomy, bowel resection d/t perforation during colonoscopy, cyst removed near esophagus, vocal cords scrapped, L breast benign bx, D&C, bilateral knee arthroscopies with R side done twice, R arm tendon release. LT TKA, BILAT CATARACTS REMOVED WITH LENS IMPLANTS Past Anesthesia/Blood Transfusion Reactions: Postoperative Nausea & Vomiting (PONV) Additional Past Anesthesia/Blood Transfusion Reaction / Comm: Pt has never recieved blood. Past Psychological History: Anxiety Smoking Status: Never smoker Past Alcohol Use History: None Reported Past Drug Use History: None Reported - Past Family History Father Family Medical History: Cancer, Congestive Heart Failure (CHF), CVA/TIA, Myocardial Infarction ([place]), Prostate Disorder Additional Family Medical History / Comment(s): at age 84- choked on a hot dog Mother Family Medical History: Cancer, Osteoarthritis (OA) Additional Family Medical History / Comment(s): Breast cancer Medications and Allergies Home Medications Medication Instructions Recorded Confirmed Type Albuterol Sulfate [Proair Hfa] 1 - 2 puff INHALATION RT-Q4H PRN 04/11/14 08/21/23 History Ascorbic Acid [Vitamin C] 1,000 mg PO DAILY 04/11/14 08/21/23 History EPINEPHrine (Auto Inject) [Epipen] 0.3 mg IM ONCE PRN 04/11/14 08/21/23 History Zinc 100 mg PO DAILY 04/11/14 08/21/23 History Furosemide [Lasix] 40 mg PO BID@0700,1500 04/22/15 08/21/23 History Potassium Chloride [Klor-Con 20] 20 meq PO DAILY 04/22/15 08/21/23 History Montelukast [Singulair] 10 mg PO HS 12/21/15 08/21/23 History Levothyroxine Sodium [Synthroid] 50 mcg PO DAILY 03/03/16 08/21/23 History L.acidoph,Paracasei, B.lactis 1 cap PO DAILY 09/10/17 08/21/23 History [Probiotic] Ipratropium-Albuterol Nebulize 3 ml INHALATION RT-QID 12/15/18 08/21/23 History [Duoneb 0.5 mg-3 mg/3 ml Soln] ALPRAZolam [Xanax] 0.5 mg PO TID PRN 01/15/21 08/21/23 History Calcium Carbonate [Calcium] 600 mg PO BID 01/15/21 08/21/23 History Famotidine [Pepcid] 40 mg PO HS 01/15/21 08/21/23 History Fluticasone/Vilanterol [Breo 1 puff INHALATION RT-DAILY 01/15/21 08/21/23 History Ellipta 200-25 Mcg Inhaler] SILVER sulfADIAZINE Cream 1 applic TOPICAL BID PRN 12/03/21 08/21/23 History [Silvadene 1% Cream] Tiotropium 2.5 Mcg/Puff [Spiriva 2 puff INHALATION RT-DAILY 12/03/21 08/21/23 History Respimat 2.5 Mcg] Cranberry Fruit Extract [Cranberry] 500 mg PO DAILY 04/26/23 08/21/23 History Levocetirizine Dihydrochloride 5 mg PO HS 04/26/23 08/21/23 History [Xyzal] Multivit with Calcium,Iron,Min 1 tab PO DAILY 04/26/23 08/21/23 History [Women's Multivitamin] Nystatin [Nystatin Oral Susp] 5 ml PO QID PRN 04/26/23 08/21/23 History Triamcinolone Acetonide [Nasacort] 1 - 2 spray EA NOSTRIL DAILY 04/26/23 08/21/23 History Vit C/E/Zn/Coppr/Lutein/Zeaxan 1 tab PO BID 04/26/23 08/21/23 History [Preservision Areds 2 Chew Tab] guaiFENesin [Mucinex] 1,200 mg PO BID 04/26/23 08/21/23 History Ipratropium-Albuterol Nebulize 3 ml INHALATION RT-Q4H PRN 08/21/23 08/21/23 History [Duoneb 0.5 mg-3 mg/3 ml Soln] Metoprolol Tartrate [Lopressor] 25 mg PO BID 08/21/23 08/21/23 History Nystatin 100,000 Unit/gm Powd 1 applic TOPICAL TID PRN #30 gm 08/23/23 Rx [Mycostatin Powder] predniSONE 0 mg PO DIRECTED #35 tab 08/23/23 Rx Allergies Allergy/AdvReac Type Severity Reaction Status Date / Time Aminoglycosides Allergy Unknown Verified 09/07/23 19:13 honey Allergy Anaphylaxis Verified 09/07/23 19:13 moxifloxacin HCl Allergy Unknown Verified 09/07/23 19:13 [From Avelox] peanut Allergy Anaphylaxis Verified 09/07/23 19:13 azithromycin [From Zithromax] AdvReac Nausea & Verified 09/07/23 19:13 Vomiting & Diarrhea clindamycin AdvReac Dyspnea Verified 09/07/23 19:13 levofloxacin [From Levaquin] AdvReac Dyspnea, Verified 09/07/23 19:13 THROAT SWOLLEN neomycin [Neomycin] AdvReac Dyspnea Verified 09/07/23 19:13 omalizumab [From Xolair] AdvReac Dyspnea Verified 09/07/23 19:13 trimethoprim [From Bactrim] AdvReac Diarrhea/co Verified 09/07/23 19:13 litis Objective - Vital Signs Vital signs: Vital Signs Temp 98.1 F 07/11/24 09:46 Pulse 70 07/11/24 09:46 Resp 17 07/11/24 09:46 BP 138/82 07/11/24 09:46 Pulse Ox 98 07/11/24 09:46 FiO2 Intake & Output 07/10/24 07/11/24 07/11/24 18:59 06:59 18:59 Weight 110.223 kg - Constitutional General appearance: Present: cooperative - EENT Eyes: Present: EOMI ENT: Present: hearing grossly normal - Neck Neck: Present: normal ROM - Respiratory Respiratory: bilateral: CTA - Cardiovascular Heart sounds: normal: S1, S2 - Integumentary Integumentary: Present: normal turgor - Musculoskeletal Musculoskeletal: Present: gait normal - Psychiatric Psychiatric: Present: A&O x's 3, appropriate affect, intact judgment & insight - Additional findings Additional findings: Breast Exam: BRA: sports bra medium Inspection: Grade 3 ptosis palpation: Breast: Multi positional exam no dominant masses or nodules of concern Right axilla: No adenopathy of concern Left breast: Multi positional exam no dominant masses or nodules of concern Left axilla: No adenopathy of concern Assessment and Plan Assessment: Impression: abnormal left breast mammogram 01-12-24 follow up on 07-09-24 left breast mammogram BIRAD 2 High Charisma risk for breast cancer; Charisma Risk 4.2% at 5 years ; declined chemoprophylaxis Lifetime risk 19.1% does not reach 20% we have talked about alternating MRI versus mammogram every 6 months but she does not reach 20% lifetime risk at this time Plan: Repeat bilateral mammogram in December 2024 with examination Patient to follow-up sooner any questions or concerns CC: Dr. Potts
== END ==
LOC: WWCWWP 09:10
PROVIDERS: ATTEND Surgery
DX: R92.8 Other abnormal and inconclusive findings on diagnostic imaging of breast (principal); Z80.3 Family history of malignant neoplasm of breast; Z91.010 Allergy to peanuts; Z91.018 Allergy to other foods; Z88.1 Allergy status to other antibiotic agents; Z88.8 Allergy status to other drugs, medicaments and biological substances

== ENCOUNTER 2024-07-23 10:18 | Emergency (ER) | payer BC ==
[2024-07-23 10:31] VITALS: TEMP 98.4
--- NOTE | 2024-07-23 10:47 | ED ---
Dizziness HPI - General Chief Complaint: Dizziness Stated Complaint: Dizzness,headache,vomiting Time Seen by Provider: 07/23/24 10:33 Source: patient, family, RN notes reviewed Mode of arrival: wheelchair Limitations: no limitations - History of Present Illness Initial Comments: This is a 63-year-old female who presents to the emergency department for ve rtigo. Patient has a history of vertigo and states that when she went to bed last night she was experiencing the dizziness. However, when she woke up this morning she had much more prominent symptoms. Feels like everything is spinning around her, especially when she turns her head. She has associated nausea and vomiting. She tried to take motion sickness medication and Zofran, but did not get any relief. States that she has pain in her neck and a headache. She has generalized abdominal discomfort from all of the vomiting. MD Complaint: dizziness - Related Data Home Medications Medication Instructions Recorded Confirmed Albuterol Sulfate [Proair Hfa] 1 - 2 puff INHALATION RT-Q4H PRN 04/11/14 07/23/24 Ascorbic Acid [Vitamin C] 1,000 mg PO DAILY 04/11/14 07/23/24 EPINEPHrine (Auto Inject) [Epipen] 0.3 mg IM ONCE PRN 04/11/14 07/23/24 Zinc 50 mg PO DAILY 04/11/14 07/23/24 Furosemide [Lasix] 40 mg PO BID 04/22/15 07/23/24 Potassium Chloride [Klor-Con 20] 20 meq PO DAILY 04/22/15 07/23/24 Montelukast [Singulair] 10 mg PO HS 12/21/15 07/23/24 Levothyroxine Sodium [Synthroid] 50 mcg PO DAILY 03/03/16 07/23/24 L.acidoph,Paracasei, B.lactis 1 cap PO DAILY 09/10/17 07/23/24 [Probiotic] Ipratropium-Albuterol Nebulize 3 ml INHALATION RT-QID 12/15/18 07/23/24 [Duoneb 0.5 mg-3 mg/3 ml Soln] ALPRAZolam [Xanax] 0.5 mg PO TID PRN 01/15/21 07/23/24 Calcium Carbonate [Calcium] 600 mg PO BID 01/15/21 07/23/24 Famotidine [Pepcid] 40 mg PO HS 01/15/21 07/23/24 Fluticasone/Vilanterol [Breo 1 puff INHALATION RT-DAILY 01/15/21 07/23/24 Ellipta 200-25 Mcg Inhaler] Tiotropium 2.5 Mcg/Puff [Spiriva 2 puff INHALATION RT-DAILY 12/03/21 07/23/24 Respimat 2.5 Mcg] Cranberry Fruit Extract [Cranberry] 500 mg PO DAILY 04/26/23 07/23/24 Levocetirizine Dihydrochloride 5 mg PO HS 04/26/23 07/23/24 [Xyzal] Multivit with Calcium,Iron,Min 1 tab PO DAILY 04/26/23 07/23/24 [Women's Multivitamin] Triamcinolone Acetonide [Nasacort] 1 - 2 spray EA NOSTRIL DAILY 04/26/23 07/23/24 Vit C/E/Zn/Coppr/Lutein/Zeaxan 1 tab PO BID 04/26/23 07/23/24 [Preservision Areds 2 Chew Tab] guaiFENesin [Mucinex] 1,200 mg PO BID 04/26/23 07/23/24 Ipratropium-Albuterol Nebulize 3 ml INHALATION RT-Q4H PRN 08/21/23 07/23/24 [Duoneb 0.5 mg-3 mg/3 ml Soln] Metoprolol Tartrate [Lopressor] 25 mg PO BID 08/21/23 07/23/24 Previous Rx's Medication Instructions Recorded Meclizine HCl [Dramamine] 25 mg PO QID PRN #30 tab 07/23/24 Metoclopramide [Reglan] 10 mg PO Q6H PRN #30 tab 07/23/24 Scopolamine [Scopolamine 1 MG/72 1 patch TRANSDERM Q72H PRN #10 07/23/24 HR patch] patch Allergies Allergy/AdvReac Type Severity Reaction Status Date / Time Aminoglycosides Allergy Rash/Hives Verified 07/23/24 12:10 honey Allergy Anaphylaxis Verified 07/23/24 12:10 moxifloxacin HCl Allergy Rash/Hives Verified 07/23/24 12:10 [From Avelox] peanut Allergy Anaphylaxis Verified 07/23/24 12:10 sulfamethoxazole Allergy hives Verified 07/23/24 12:10 [From Bactrim] azithromycin [From Zithromax] AdvReac Nausea & Verified 07/23/24 12:10 Vomiting & Diarrhea clindamycin AdvReac Dyspnea Verified 07/23/24 12:10 levofloxacin [From Levaquin] AdvReac Dyspnea, Verified 07/23/24 12:10 THROAT SWOLLEN neomycin [Neomycin] AdvReac Dyspnea Verified 07/23/24 12:10 omalizumab [From Xolair] AdvReac Dyspnea Verified 07/23/24 12:10 trimethoprim [From Bactrim] AdvReac HIVES, Verified 07/23/24 12:10 Diarrhea/colitis Review of Systems ROS Statement: Those systems with pertinent positive or pertinent negative responses have been documented in the HPI. ROS Other: All systems not noted in ROS Statement are negative. Past Medical History Past Medical History: Asthma, Heart Failure, COPD, CVA/TIA, Deep Vein Thrombosis (DVT), Eye Disorder, GERD/Reflux, Hypertension, Osteoarthritis (OA), Respiratory Disorder, Sleep Apnea/CPAP/BIPAP, Syncope, Thyroid Disorder Additional Past Medical History / Comment(s): Paradoxical vocal cord function /episodic dysphonia, dysphagia, tracheobronchial malasia, severe persistent bronchial asthma. ARAMIS with Cpap. TIA. scoliosis/spondylosis. neuropathy bilateral lower legs/feet. anemia. lower GI bleed. Cdiff colitis, hiatal hernia, tachycardia, hypothyroid, BILAT MACULAR DEGENERATION, celiac disease History of Any Multi-Drug Resistant Organisms: C-DIFF Date of last positivie culture/infection: 04/22/15 MDRO Source:: stool Past Surgical History: Breast Surgery, Cholecystectomy, Heart Catheterization, Joint Replacement, Orthopedic Surgery, Tubal Ligation, Uterine Ablation Additional Past Surgical History / Comment(s): Multiple bronchoscopies, colonoscopy with benign polypectomy, bowel resection d/t perforation during colonoscopy, cyst removed near esophagus, vocal cords scrapped, L breast benign bx, D&C, bilateral knee arthroscopies with R side done twice, R arm tendon release. LT TKA, BILAT CATARACTS REMOVED WITH LENS IMPLANTS Past Anesthesia/Blood Transfusion Reactions: Postoperative Nausea & Vomiting (PONV) Additional Past Anesthesia/Blood Transfusion Reaction / Comment(s): Pt has never recieved blood. Past Psychological History: Anxiety Smoking Status: Never smoker Past Alcohol Use History: None Reported Past Drug Use History: None Reported - Past Family History Father Family Medical History: Cancer, Congestive Heart Failure (CHF), CVA/TIA, Myoc ardial Infarction ([place]), Prostate Disorder Additional Family Medical History / Comment(s): at age 84- choked on a hot dog Mother Family Medical History: Cancer, Osteoarthritis (OA) Additional Family Medical History / Comment(s): Breast cancer General Exam Limitations: no limitations General appearance: alert, in no apparent distress Head exam: Present: atraumatic, normocephalic, normal inspection Eye exam: Present: normal appearance, PERRL, EOMI. Absent: scleral icterus, conjunctival injection, periorbital swelling Respiratory exam: Present: normal lung sounds bilaterally. Absent: respiratory distress, wheezes, rales, rhonchi, stridor Cardiovascular Exam: Present: regular rate, normal rhythm, normal heart sounds. Absent: systolic murmur, diastolic murmur, rubs, gallop, clicks Neurological exam: Present: alert, oriented X3, CN II-XII intact Psychiatric exam: Present: normal affect, normal mood Skin exam: Present: warm, dry, intact, normal color. Absent: rash Course Vital Signs 07/23/24 07/23/24 10:28 13:52 Temperature 98.4 F Pulse Rate 97 73 Respiratory 22 20 Rate Blood Pressure 135/82 136/81 O2 Sat by Pulse 100 98 Oximetry Medical Decision Making - Medical Decision Making This is a 63 year old female who presents to the emergency department for dizziness. Was pt. sent in by a medical professional or institution? @ -No Did you speak to anyone other than the patient for history? @ -No Did you review nursing and triage notes? @ -Yes, and I agree, it is accurate with regards to the patient's symptoms. Were old charts reviewed? @ -No Differential Diagnosis? @ -Differential Dizziness: Benign paroxysmal positional Vertigo, Meniere's disease, otitis media, acoustic neuroma, vertebrobasilar insufficiency, cerebellar stroke, encephalitis, hypovolemic, arrhythmia, coronary artery syndrome, anemia, this is not meant to be an all-inclusive list EKG interpreted by me (3pts min.)? @ -EKG interpreted by me demonstrating the following: Sinus rhythm. Ventricular rate 79 bpm, IA interval 111 ms, QRS duration 100 ms, QTc 399 ms. X-rays interpreted by me (1pt min.)? @ -Not obtained CT interpreted by me (1pt min.)? @ -CT scan of the brain obtained. My interpretation identifies no evidence of an acute intracranial hemorrhage. U/S interpreted by me (1pt. min.)? @ -Not obtained What testing was considered but not performed? (CT, X-rays, U/S, labs)? Why? @ -None What meds were considered but not given? Why? @ -None Did you discuss the management of the patient with other professionals? @ -No Did you reconcile home meds? @ -No Was smoking cessation discussed for >3mins.? @ -No Was critical care preformed (if so, how long)? @ -No Were there social determinants of health that impacted care today? How? (Homelessness, low income, unemployed, alcoholism, drug addiction, transportation, low edu. Level, literacy, decrease access to med. care, intermediate, rehab)? @ -No Was there de-escalation of care discussed even if they declined? (Discuss DNR or withdrawal of care, Hospice)? @ -No What co-morbidities impacted this encounter? (DM, HTN, Smoking, COPD, CAD, Cancer, CVA, Hep., AIDS, mental health diagnosis, sleep apnea, morbid obesity)? @ -None Was patient admitted / discharged? @ -Discharged. Lab work unremarkable. CT scan of the brain obtained revealing no acute process. HINTS exam negative and she had no neurological deficits on exam. Symptoms well controlled in the emergency department and she was tolerating oral intake. Prescription for meclizine, Reglan, and scopolamine patches provided. We also discussed the half somersault maneuver for further symptomatic treatment. Advised close follow-up with her PCP for reevaluation. Patient discharged home in stable condition. Case discussed with ED attending Dr. Wilson. Return precautions reviewed in depth, the patient is instructed to return to the emergency department with any new, worsening, or concerning symptoms. Patient verbalized understanding. Undiagnosed new problem with uncertain prognosis? @ -None Drug Therapy requiring intensive monitoring for toxicity (Heparin, Nitro, Insulin, Cardizem)? @ -None Were any procedures done? @ -None Diagnosis/symptom? @ -BPPV Acute, or Chronic, or Acute on Chronic? @ -Acute Uncomplicated (without systemic symptoms) or Complicated (systemic symptoms)? @ -Uncomplicated Side effects of treatment? @ -None Exacerbation, Progression, or Severe Exacerbation] @ -Not applicable Poses a threat to life or bodily function? @ -No - Lab Data Result diagrams: 07/23/24 11:39 07/23/24 11:39 Lab Results 07/23/24 07/23/24 07/23/24 Range/Units 11:39 11:39 11:39 WBC 7.2 (3.8-10.6) k/uL RBC 4.68 (3.80-5.40) m/uL Hgb 13.6 (11.4-16.0) gm/dL Hct 41.9 (34.0-46.0) % MCV 89.5 (80.0-100.0) fL MCH 29.0 (25.0-35.0) pg MCHC 32.4 (31.0-37.0) g/dL RDW 13.0 (11.5-15.5) % Plt Count 203 (150-450) k/uL MPV 8.0 Neutrophils % 67 % Lymphocytes % 24 % Monocytes % 6 % Eosinophils % 1 % Basophils % 0 % Neutrophils # 4.8 (1.3-7.7) k/uL Lymphocytes # 1.7 (1.0-4.8) k/uL Monocytes # 0.4 (0-1.0) k/uL Eosinophils # 0.1 (0-0.7) k/uL Basophils # 0.0 (0-0.2) k/uL Sodium 139 (137-145) mmol/L Potassium 3.7 (3.5-5.1) mmol/L Chloride 109 H (98-107) mmol/L Carbon Dioxide 26 (22-30) mmol/L Anion Gap 4 mmol/L BUN 18 H (7-17) mg/dL Creatinine 0.73 (0.52-1.04) mg/dL Est GFR (CKD-EPI)AfAm >90 (>60 ml/min/1.73 sqM) Est GFR (CKD-EPI)NonAf 89 (>60 ml/min/1.73 sqM) Glucose 109 H (74-99) mg/dL Plasma Lactic Acid Seth 1.3 (0.7-2.0) mmol/L Calcium 9.3 (8.4-10.2) mg/dL Magnesium 2.2 (1.6-2.3) mg/dL Total Bilirubin 1.2 (0.2-1.3) mg/dL AST 24 (14-36) U/L ALT 17 (4-34) U/L Alkaline Phosphatase 122 (38-126) U/L Total Protein 6.4 (6.3-8.2) g/dL Albumin 4.0 (3.5-5.0) g/dL Urine Color Urine Appearance (Clear) Urine pH (5.0-8.0) Ur Specific [place] (1.001-1.035) Urine Protein (Negative) Urine Glucose (UA) (Negative) Urine Ketones (Negative) Urine Blood (Negative) Urine Nitrite (Negative) Urine Bilirubin (Negative) Urine Urobilinogen (<2.0) mg/dL Ur Leukocyte Esterase (Negative) Urine RBC (0-5) /hpf Urine WBC (0-5) /hpf Ur Squamous Epith Cells (0-4) /hpf Urine Bacteria (None) /hpf Urine Yeast (Budding) (None) /hpf 07/23/24 Range/Units 13:04 WBC (3.8-10.6) k/uL RBC (3.80-5.40) m/uL Hgb (11.4-16.0) gm/dL Hct (34.0-46.0) % MCV (80.0-100.0) fL MCH (25.0-35.0) pg MCHC (31.0-37.0) g/dL RDW (11.5-15.5) % Plt Count (150-450) k/uL MPV Neutrophils % % Lymphocytes % % Monocytes % % Eosinophils % % Basophils % % Neutrophils # (1.3-7.7) k/uL Lymphocytes # (1.0-4.8) k/uL Monocytes # (0-1.0) k/uL Eosinophils # (0-0.7) k/uL Basophils # (0-0.2) k/uL Sodium (137-145) mmol/L Potassium (3.5-5.1) mmol/L Chloride (98-107) mmol/L Carbon Dioxide (22-30) mmol/L Anion Gap mmol/L BUN (7-17) mg/dL Creatinine (0.52-1.04) mg/dL Est GFR (CKD-EPI)AfAm (>60 ml/min/1.73 sqM) Est GFR (CKD-EPI)NonAf (>60 ml/min/1.73 sqM) Glucose (74-99) mg/dL Plasma Lactic Acid Seth (0.7-2.0) mmol/L Calcium (8.4-10.2) mg/dL Magnesium (1.6-2.3) mg/dL Total Bilirubin (0.2-1.3) mg/dL AST (14-36) U/L ALT (4-34) U/L Alkaline Phosphatase (38-126) U/L Total Protein (6.3-8.2) g/dL Albumin (3.5-5.0) g/dL Urine Color Colorless Urine Appearance Cloudy H (Clear) Urine pH 8.0 (5.0-8.0) Ur Specific [place] 1.008 (1.001-1.035) Urine Protein Negative (Negative) Urine Glucose (UA) Negative (Negative) Urine Ketones Negative (Negative) Urine Blood Negative (Negative) Urine Nitrite Negative (Negative) Urine Bilirubin Negative (Negative) Urine Urobilinogen <2.0 (<2.0) mg/dL Ur Leukocyte Esterase Trace H (Negative) Urine RBC <1 (0-5) /hpf Urine WBC 2 (0-5) /hpf Ur Squamous Epith Cells <1 (0-4) /hpf Urine Bacteria Rare H (None) /hpf Urine Yeast (Budding) Moderate H (None) /hpf - Radiology Data Radiology results: report reviewed, image reviewed Disposition Clinical Impression: BPPV (benign paroxysmal positional vertigo), Nausea and vomiting Disposition: HOME SELF-CARE Instructions (If sedation given, give patient instructions): Benign Paroxysmal Positional Vertigo (ED), Dizziness (ED) Additional Instructions: Return to the emergency department with any new, worsening, or concerning symptoms. Take the meclizine up to 4 times daily for feelings of vertigo. The Reglan can be taken up to every 6 hours to help with both nausea and vomiting as well as feelings of vertigo. You can also replace the scopolamine patch every 3 days. This will help with motion sickness and feelings of vertigo as well. Look up the half somersault maneuver by Dr. Kellee Biggs for additional treatment options. Follow up with your primary care provider in 1-2 days. Prescriptions: Meclizine HCl [Dramamine] 25 mg PO QID PRN #30 tab PRN Reason: Vertigo Metoclopramide [Reglan] 10 mg PO Q6H PRN #30 tab PRN Reason: Nausea And Vomiting Scopolamine [Scopolamine 1 MG/72 HR patch] 1 patch TRANSDERM Q72H PRN #10 patch PRN Reason: Motion Sickness Is patient prescribed a controlled substance at d/c from ED?: No Referrals: Lucio Potts DO [Primary Care Provider] - 1-2 days Time of Disposition: 13:22
[2024-07-23] MEDS: SODIUM CHLORIDE 0.9% 1,000 ML IV STA (11:43)
[2024-07-23] MEDS: diphenhydrAMINE 50 MG/ML 1 ML VIAL IVP STA (11:46)
[2024-07-23] MEDS: METOCLOPRAMIDE 5 MG/ML 2 ML VIAL IVP STA (11:46)
[2024-07-23] MEDS: KETOROLAC 15 MG/ML 1 ML VIAL IVP STA (11:46)
[2024-07-23] MEDS: SCOPOLAMINE 1 MG/72 HR PATCH TRANSDERM STA (11:46)
[2024-07-23] MEDS: ONDANSETRON 4 MG/2 ML VIAL IVP STA (11:46)
[2024-07-23] MEDS: MORPHINE SULFATE 4 MG/ML SYRINGE IVP STA (11:47)
[2024-07-23 11:57] LABS: Basophils % (A) 0 %; Eosinophils # (A) 0.1 k/uL (0-0.7); Eosinophils % (A) 1 %; HCT 41.9 % (34.0-46.0); HGB 13.6 gm/dL (11.4-16.0); Lymphocytes # (A) 1.7 k/uL (1.0-4.8); Lymphocytes % (A) 24 %; MCHC 32.4 g/dL (31.0-37.0); MCV 89.5 fL (80.0-100.0); Monocytes # (A) 0.4 k/uL (0-1.0); Monocytes % (A) 6 %; Neutrophils # (A) 4.8 k/uL (1.3-7.7); Neutrophils % (A) 67 %; Platelet Count 203 k/uL (150-450); RBC 4.68 m/uL (3.80-5.40); WBC 7.2 k/uL (3.8-10.6)
[2024-07-23 12:02] LABS: ALT 17 U/L (4-34); AST 24 U/L (14-36); African American GFR (CKD) >90 (>60 ml/min/1.73 sqM); Alkaline Phosphatase 122 U/L (38-126); Anion Gap 4 mmol/L; Blood Urea Nitrogen 18 mg/dL (7-17); Calcium 9.3 mg/dL (8.4-10.2); Carbon Dioxide 26 mmol/L (22-30); Chloride 109 mmol/L (98-107); Glucose 109 mg/dL (74-99); Magnesium 2.2 mg/dL (1.6-2.3); Non-African American GFR(CKD) 89 (>60 ml/min/1.73 sqM); Potassium 3.7 mmol/L (3.5-5.1); Sodium 139 mmol/L (137-145); Total Bilirubin 1.2 mg/dL (0.2-1.3); Total Protein 6.4 g/dL (6.3-8.2)
--- NOTE | 2024-07-23 12:25 | CT ---
EXAMINATION TYPE: CT brain wo con CT DLP: 1149 mGycm, Automated exposure control for dose reduction was used. DATE OF EXAM: 07/23/2024 12:20 PM COMPARISON: Prior CT Brain from 09/26/2022 . CLINICAL INDICATION:Female, 63 years old with history of Dizziness, vertigo TECHNIQUE: Brain: Multiple axial CT images of the brain were obtained without IV contrast. . Coronal and sagitta l reformats reviewed. FINDINGS: Brain: Extra-axial spaces: No abnormal extra-axial fluid collections. Ventricular system: Within normal limits Cerebral parenchyma: No acute intraparenchymal hemorrhage or mass effect. The pack-white junction is well differentiated. Cerebellum: Unremarkable. Mass effect: No evidence of midline shift. Intracranial vasculature: unremarkable Soft tissues: Normal. Calvarium/osseous structures: No depressed skull fracture. Benign hyperostosis frontalis noted. Paranasal sinuses and mastoid air cells: Clear Visualized orbits: Bilateral aphakia IMPRESSION: No acute intracranial process. [facility], , 07/23/2024 12:22 PM
[2024-07-23] MEDS: MECLIZINE 12.5 MG TAB PO STA (13:08)
[2024-07-23 13:15] LABS: Appearance,Urine Cloudy (Clear); Bacteria,Urine Rare /hpf; Bilirubin,Urine Negative (Negative); Blood,Urine Negative (Negative); Budding Yeast,Urine Moderate /hpf; Color,Urine Colorless; Glucose,Urine (UA) Negative (Negative); Ketones,Urine Negative (Negative); Leukocyte Esterase,Urine Trace (Negative); Nitrite,Urine Negative (Negative); Protein,Urine Negative (Negative); RBC,Urine <1 /hpf (0-5); Specific Gravity,Urine 1.008 (1.001-1.035); Squamous Epithelial Cell,Urine <1 /hpf (0-4); Urobilinogen,Urine <2.0 mg/dL (<2.0); WBC,Urine 2 /hpf (0-5)
[2024-07-23 13:53] VITALS: BP 136/81; PULSE 73; RESP 20
== END 2024-07-23 13:53 | disposition home or self-care (01) ==
LOC: EC 10:18
CPT/HCPCS: 36415; 70450; 80053; 81001; 83605; 83735; 85025; 93005; 96361; 96374; 96375; 99284

== ENCOUNTER → 2024-09-03 | Outpatient (CLI) | payer BC ==
--- NOTE | 2024-09-03 09:35 | XR ---
EXAMINATION TYPE: XR chest 2V DATE OF EXAM: 09/03/2024 CLINICAL HISTORY: Chest pain TECHNIQUE: Frontal and lateral views of the chest are obtained. COMPARISON: 10/24/2023 FINDINGS: There is no focal air space opacity, pleural effusion, or pneumothorax seen. The cardiac silhouette size is within normal limits. The osseous structures are intact. IMPRESSION: No acute cardiopulmonary process. [facility], , 09/03/2024 9:32 AM
[2024-09-03 16:23] LABS: Basophils # (A) 0.03 X 10*3/uL (0.00-0.10); Basophils % (A) 0.4 %; Eosinophils # (A) 0.33 X 10*3/uL (0.04-0.35); Eosinophils % (A) 4.5 %; HCT 41.9 % (37.2-46.3); HGB 13.4 g/dL (12.0-15.0); Lymphocytes # (A) 2.39 X 10*3/uL (0.90-5.00); Lymphocytes % (A) 32.6 %; MCV 93.9 FL (80.0-97.0); Mean Platelet Volume 11.8 FL (9.5-12.2); Monocytes # (A) 0.62 X 10*3/uL (0.20-1.00); Monocytes % (A) 8.4 %; NRBC Per 100 WBC 0 X 10*3/uL (0.00-0.01); Neutrophils # (A) 3.95 X 10*3/uL (1.80-7.70); Neutrophils % (A) 53.8 %; Platelet Count 218 X 10*3/uL (140-440); RBC 4.46 X 10*6/uL (4.10-5.20); RDW 13.2 % (11.5-14.5); WBC 7.34 X 10*3/uL (4.50-10.00)
[2024-09-03 16:34] LABS: NT-Pro-B-Type Natriuretic Pept 84 pg/mL (0-125)
[2024-09-03 19:18] LABS: ALT 16 U/L (8-44); AST 20 U/L (13-35); Albumin 4.3 g/dL (3.8-4.9); Albumin/Globulin Ratio 1.72 Ratio (1.60-3.17); Alkaline Phosphatase 122 U/L (41-126); Blood Urea Nitrogen 17.9 mg/dL (9.0-27.0); Calcium 9.3 mg/dL (8.7-10.3); Carbon Dioxide 23.5 mmol/L (21.6-31.8); Chloride 105 mmol/L (96-109); Chol/HDL Ratio 2.37 Ratio; Globulin 2.5 g/dL (1.6-3.3); Glucose 95 mg/dL (70-110); LDL Cholesterol,Calculated 68.6 mg/dL (0.0-131.0); Magnesium 2.2 mg/dL (1.5-2.4); Potassium 4.4 mmol/L (3.5-5.5); Sodium 144 mmol/L (135-145); T4, Free (Free Thyroxine) 1.24 ng/dL (0.80-1.80); Total Bilirubin 0.7 mg/dL (0.3-1.2); Total Protein 6.8 g/dL (6.2-8.2); VLDL Calculation 16.42 mg/dL (5.00-40.00)
== END | disposition home or self-care (01) ==
LOC: LABWHC1 08:43
PROVIDERS: ATTEND Internal Medicine
DX: I10 Essential (primary) hypertension (principal); E03.9 Hypothyroidism, unspecified; M85.80 Other specified disorders of bone density and structure, unspecified site; R07.89 Other chest pain
CPT/HCPCS: 36415; 71046; 80053; 80061; 82306; 83735; 83880; 84439; 84443; 85025

== ENCOUNTER → 2025-02-25 | Outpatient (CLI) | payer BC ==
--- NOTE | 2025-02-25 10:54 | MM ---
Reason for Exam: Screening (asymptomatic). Last mammogram was performed 1 year(s) and 2 month(s) ago. Patient History: Menarche at age 14. First Full-Term at age 26. Postmenopausal. Patient has history of breast feeding. 10/02/2007, Benign Ultrasound-Guided FNA Biopsy on the left side. 10/02/2007, Bilateral Benign Core Biopsy. 03/19/2013, Cancelled Left Mammotome on the left side. Mother had breast cancer, age 60. Risk Values: Charisma 5 year model risk: 4.4%. NCI Lifetime model risk: 18.6%. Prior Study Comparison: 12/28/2022 Bilateral MG screening mammo w CAD, [facility]. 01/03/2024 Bilateral MG screening mammo w CAD, [facility]. 07/09/2024 Left MG 3D diag mammo w/cad , [facility]. Tissue Density: The breasts are heterogeneously dense, which may obscure small masses. Findings: Analyzed By CAD. Mammotome biopsy clip in the left breast is redemonstrated. Vascular calcification bilaterally is redemonstrated. Stable under 5 mm circumscribed round masses scattered throughout dense tissue in the right breast. Stable larger 11 mm circumscribed round mass anteriorly in the left breast. There is no suspicious group of microcalcifications or new suspicious mass in either breast. Overall Assessment: Benign, BI-RAD 2 Management: Screening Mammogram of both breasts in 1 year. . Patient should continue monthly self-breast exams. A clinical breast exam by your physician is recommended on an annual basis. This exam should not preclude additional follow-up of suspicious palpable abnormalities. Note on Charisma scores and lifetime risk: 1. A Charisma score greater than 3% is considered moderate risk. If this is the case, consider specialist referral to assess eligibility for a risk reducing agent. 2. If overall lifetime risk for the development of breast cancer is 20% or higher, the patient may qualify for future screening with alternating mammogram and breast MRI. [facility], , 02/25/2025 10:51 AM. Electronically signed and approved by: Angelito Wen M.D.
== END | disposition home or self-care (01) ==
LOC: RADMAMWWP 09:04
PROVIDERS: ATTEND Surgery
DX: Z12.31 Encounter for screening mammogram for malignant neoplasm of breast (principal); R92.333 Mammographic heterogeneous density, bilateral breasts; R92.1 Mammographic calcification found on diagnostic imaging of breast; Z78.0 Asymptomatic menopausal state; Z80.3 Family history of malignant neoplasm of breast
CPT/HCPCS: 77063; 77067

== ENCOUNTER → 2025-02-28 | Outpatient (CLI) | payer BC | LOC: WWCWWP 10:08 | PROVIDERS: ATTEND Surgery | DX: Z53.9 Procedure and treatment not carried out, unspecified reason (principal) ==

== ENCOUNTER → 2025-03-28 | Outpatient (CLI) | payer BC ==
[2025-03-28 10:42] VITALS: BP 107/69; PULSE 83; RESP 17; TEMP 98.1
--- NOTE | 2025-03-28 10:51 | P.PN ---
Subjective Progress Note Date: 03/28/25 Principal diagnosis: fibrocystic breast disease 03-28-25 Principal diagnosis: high risk for breast cancer Requesting physician: Lucio Potts History of present illness: Eva is a 64-year-old white female seen in consultation for Dr. Potts regarding high risk for breast cancer. She had a bilateral mammogram on 01-03-24, this was personally reviewed with DR. Power. She was not complaining of any new lumps, masses, or nodules of concern. She had a left breast stero biopsy about 8 years ago which was benign. She has not had any other surgery on her breast. She was not complaining of any nipple discharge or skin changes. She had not had any recent trauma or infection in her breast. Of her radiograph of 01-03-[address] Perez it was recommended that she have a repeat left breas t mammogram in 6 months. This was done on 07-09-24 and was BIRAD 2. It was personally reviewed and interpreted. Her most recent bilateral mammogram was on 02-25-25 it was personally interpreted adn is BIRAD 2 She is not complaining of any new lumps, masses, or lesions in either breast. We have discussed chemoprophylaxes and she has declined at this time. She had a recent bug bite to her left flank followed by primary care, recent admission to hospital for lungs is presently on steroids for her lungs follows with pulmonary Caffeine: occasional nicotine: none chocolate: weekly BCP: none hormones: none Charisma 5 year risk: 4.4% lifetime: 18.6% Family History: mother: bilateral breast cancer, in her 70's father: prostate cancer granddaughter: Neuroblastoma at the age of 2 1/2 Hormone History: menarche: 15 , breast fed: yes, age at first : 25 menopause: March 2017, born in 1960; age 48 Surgical History: Cardiac cath Cholecystectomy Left breast biopsy D&C/tubal ligation Right and left knee arthro-'s copy Neck cyst removed Perforated bowel resected Vocal cord Spinal cord and nerve x 2 Bilateral cataract Left total knee Medical history: Asthma/tracheobronchitis Upper airway obstruction with stridor Hypertension GERD Episodic hoarseness Tachycardia Scoliosis Social history: Nicotine: Negative Alcohol: Negative Drugs: Negative Allergies: Peanuts/honey/gluten/aminog lycosides/Levaquin/Xolair/neomycin/clindamycin/Zithromax/bacitracin or Bactrim/Avalox Review of Systems - Constitutional Reports sweats - EENT EENT Comment(s): macular degenerative eye disease Eyes: bilateral as per HPI Ears: left: tinnitus Ears, nose, mouth and throat: Reports hoarseness - Breasts bilateral: as per HPI - Cardiovascular Reports as per HPI, Reports shortness of breath - Respiratory Reports as per HPI - Gastrointestinal Gastrointestinal Comment(s): glutin disease, GERD - Genitourinary Genitourinary: Denies dysuria, Denies hematuria Menstruation: Reports postmenopausal - Musculoskeletal Reports myalgias - Integumentary Denies rash, Denies unusual bruising - Neurological Denies headaches, Denies syncope - Psychiatric Reports as per HPI - Endocrine Endocrine Comment(s): sleep apnea Reports fatigue - Hematologic/Lymphatic Denies easy bleeding, Denies easy bruising - Allergic/Immunologic Reports as per HPI Past Medical History Past Medical History: Asthma, Heart Failure, COPD, CVA/TIA, Deep Vein Thrombosis (DVT), Eye Disorder, GERD/Reflux, Hypertension, Osteoarthritis (OA), Respiratory Disorder, Sleep Apnea/CPAP/BIPAP, Syncope, Thyroid Disorder Additional Past Medical History / Comment(s): Paradoxical vocal cord function/episodic dysphonia, dysphagia, tracheobronchial malasia, severe persistent bronchial asthma. ARAMIS with Cpap. TIA. scoliosis/spondylosis. neuropathy bilateral lower legs/feet. anemia. lower GI bleed. Cdiff colitis, hiatal hernia, tachycardia, hypothyroid, BILAT MACULAR DEGENERATION, celiac disease History of Any Multi-Drug Resistant Organisms: C-DIFF Year Discovered:: 04/22/15 MDRO Source:: stool Past Surgical History: Breast Surgery, Cholecystectomy, Heart Catheterization, Joint Replacement, Orthopedic Surgery, Tubal Ligation, Uterine Ablation Additional Past Surgical History / Comment(s): Multiple bronchoscopies, colonoscopy with benign polypectomy, bowel resection d/t perforation during colonoscopy, cyst removed near esophagus, vocal cords scrapped, L breast benign bx, D&C, bilateral knee arthroscopies with R side done twice, R arm tendon release. LT TKA, BILAT CATARACTS REMOVED WITH LENS IMPLANTS Past Anesthesia/Blood Transfusion Reactions: Postoperative Nausea & Vomiting (PONV) Additional Past Anesthesia/Blood Transfusion Reaction / Comm: Pt has never recieved blood. Past Psychological History: Anxiety Smoking Status: Never smoker Past Alcohol Use History: None Reported Past Drug Use History: None Reported - Past Family History Father Family Medical History: Cancer, Congestive Heart Failure (CHF), CVA/TIA, Myocardial Infarction ([place]), Prostate Disorder Additional Family Medical History / Comment(s): at age 84- choked on a hot dog Mother Family Medical History: Cancer, Osteoarthritis (OA) Additional Family Medical History / Comment(s): Breast cancer Medications and Allergies Home Medications Medication Instructions Recorded Confirmed Type Albuterol Sulfate [Proair Hfa] 1 - 2 puff INHALATION RT-Q4H PRN 04/11/14 08/21/23 History Ascorbic Acid [Vitamin C] 1,000 mg PO DAILY 04/11/14 08/21/23 History EPINEPHrine (Auto Inject) [Epipen] 0.3 mg IM ONCE PRN 04/11/14 08/21/23 History Zinc 100 mg PO DAILY 04/11/14 08/21/23 History Furosemide [Lasix] 40 mg PO BID@0700,1500 04/22/15 08/21/23 History Potassium Chloride [Klor-Con 20] 20 meq PO DAILY 04/22/15 08/21/23 History Montelukast [Singulair] 10 mg PO HS 12/21/15 08/21/23 History Levothyroxine Sodium [Synthroid] 50 mcg PO DAILY 03/03/16 08/21/23 History L.acidoph,Paracasei, B.lactis 1 cap PO DAILY 09/10/17 08/21/23 History [Probiotic] Ipratropium-Albuterol Nebulize 3 ml INHALATION RT-QID 12/15/18 08/21/23 History [Duoneb 0.5 mg-3 mg/3 ml Soln] ALPRAZolam [Xanax] 0.5 mg PO TID PRN 01/15/21 08/21/23 History Calcium Carbonate [Calcium] 600 mg PO BID 01/15/21 08/21/23 History Famotidine [Pepcid] 40 mg PO HS 01/15/21 08/21/23 History Fluticasone/Vilanterol [Breo 1 puff INHALATION RT-DAILY 01/15/21 08/21/23 History Ellipta 200-25 Mcg Inhaler] SILVER sulfADIAZINE Cream 1 applic TOPICAL BID PRN 12/03/21 08/21/23 History [Silvadene 1% Cream] Tiotropium 2.5 Mcg/Puff [Spiriva 2 puff INHALATION RT-DAILY 12/03/21 08/21/23 History Respimat 2.5 Mcg] Cranberry Fruit Extract [Cranberry] 500 mg PO DAILY 04/26/23 08/21/23 History Levocetirizine Dihydrochloride 5 mg PO HS 04/26/23 08/21/23 History [Xyzal] Multivit with Calcium,Iron,Min 1 tab PO DAILY 04/26/23 08/21/23 History [Women's Multivitamin] Nystatin [Nystatin Oral Susp] 5 ml PO QID PRN 04/26/23 08/21/23 History Triamcinolone Acetonide [Nasacort] 1 - 2 spray EA NOSTRIL DAILY 04/26/23 08/21/23 History Vit C/E/Zn/Coppr/Lutein/Zeaxan 1 tab PO BID 04/26/23 08/21/23 History [Preservision Areds 2 Chew Tab] guaiFENesin [Mucinex] 1,200 mg PO BID 04/26/23 08/21/23 History Ipratropium-Albuterol Nebulize 3 ml INHALATION RT-Q4H PRN 08/21/23 08/21/23 History [Duoneb 0.5 mg-3 mg/3 ml Soln] Metoprolol Tartrate [Lopressor] 25 mg PO BID 08/21/23 08/21/23 History Nystatin 100,000 Unit/gm Powd 1 applic TOPICAL TID PRN #30 gm 08/23/23 Rx [Mycostatin Powder] predniSONE 0 mg PO DIRECTED #35 tab 08/23/23 Rx Allergies Allergy/AdvReac Type Severity Reaction Status Date / Time Aminoglycosides Allergy Unknown Verified 09/07/23 19:13 honey Allergy Anaphylaxis Verified 09/07/23 19:13 moxifloxacin HCl Allergy Unknown Verified 09/07/23 19:13 [From Avelox] peanut Allergy Anaphylaxis Verified 09/07/23 19:13 azithromycin [From Zithromax] AdvReac Nausea & Verified 09/07/23 19:13 Vomiting & Diarrhea clindamycin AdvReac Dyspnea Verified 09/07/23 19:13 levofloxacin [From Levaquin] AdvReac Dyspnea, Verified 09/07/23 19:13 THROAT SWOLLEN neomycin [Neomycin] AdvReac Dyspnea Verified 09/07/23 19:13 omalizumab [From Xolair] AdvReac Dyspnea Verified 09/07/23 19:13 trimethoprim [From Bactrim] AdvReac Diarrhea/co Verified 09/07/23 19:13 litis Objective - Constitutional General appearance: Present: cooperative - EENT Eyes: Present: EOMI ENT: Present: hearing grossly normal - Neck Neck: Present: normal ROM - Respiratory Respiratory: bilateral: CTA - Cardiovascular Rhythm: regular Heart sounds: normal: S1, S2 - Integumentary Integumentary: Present: normal turgor - Musculoskeletal Musculoskeletal: Present: gait normal - Psychiatric Psychiatric: Present: A&O x's 3, appropriate affect, intact judgment & insight - Additional findings Additional findings: Breast Exam: BRA: sports bra medium Inspection: Grade 3 ptosis palpation: Breast: Multi positional exam no dominant masses or nodules of concern Right axilla: No adenopathy of concern Left breast: Multi positional exam no dominant masses or nodules of concern Left axilla: No adenopathy of concern Assessment and Plan Assessment: Impression: bilateral mammogram 02-25-25 BIRAD 2 personally interpreted High Charisma risk for breast cancer; Charisma Risk 4.4% at 5 years ; declined chemoprophylaxis Lifetime risk 18.6% does not reach 20% we have talked about alternating MRI versus mammogram every 6 months but she does not reach 20% lifetime risk at this time Plan: Repeat bilateral mammogram in February 2026 with examination Patient to follow-up sooner any questions or concerns CC: Dr. Potts
== END ==
LOC: WWCWWP 10:12
PROVIDERS: ATTEND Surgery
DX: Z12.31 Encounter for screening mammogram for malignant neoplasm of breast (principal); Z91.030 Bee allergy status; Z91.010 Allergy to peanuts; Z88.1 Allergy status to other antibiotic agents; Z88.2 Allergy status to sulfonamides; Z88.8 Allergy status to other drugs, medicaments and biological substances

== ENCOUNTER → 2025-04-08 | Outpatient (CLI) | payer BC ==
[2025-04-08 15:22] LABS: BUN/Creat Ratio 17.18 Ratio (12.00-20.00); Blood Urea Nitrogen 18.9 mg/dL (9.0-27.0); Calcium 8.9 mg/dL (8.7-10.3); Carbon Dioxide 29.3 mmol/L (21.6-31.8); Chloride 103 mmol/L (96-109); Glucose 86 mg/dL (70-110); Magnesium 2.2 mg/dL (1.5-2.4); Potassium 4.5 mmol/L (3.5-5.5); Sodium 143 mmol/L (135-145)
== END | disposition home or self-care (01) ==
LOC: LABWHC1 08:20
PROVIDERS: ATTEND Internal Medicine Critical Care Medicine
DX: I10 Essential (primary) hypertension (principal); J45.50 Severe persistent asthma, uncomplicated
CPT/HCPCS: 36415; 80048; 83735